=== PATIENT | male | born 1950 | race Caucasian/White ===

== ENCOUNTER 2017-09-04 11:33 | Day surgery (SDC) | payer MEDICARE, OTHER, SELFPAY ==
[2017-08-28 10:26] VITALS: BP 123/70; PULSE 55; RESP 17; TEMP 36.5; O2SAT 96; BMI 23.6
--- NOTE | 2017-08-28 10:45 | SDCEKG_ITS ---
Test Reason : Blood Pressure : / mmHG Vent. Rate : 048 BPM Atrial Rate : 048 BPM P-R Int : 126 ms QRS Dur : 108 ms QT Int : 416 ms P-R-T Axes : 009 073 069 degrees QTc Int : 371 ms Marked sinus bradycardia Abnormal ECG Confirmed by GEOVANNY RIOJAS ([id number]), business editor JESUS ALBERTO MORA ([id number] on 09/01/2017 3:20:33 PM Referred By: ADRIAN JULIAN Confirmed By:GEOVANNY RIOJAS
[2017-08-28 11:20] LABS: Hematocrit 46.4 % (40-54); Mean Corp Hgb Conc 32.3 g/gl (32-36); Mean Corpuscular Hgb 31.4 pg (27.0-32.0); Mean Corpuscular Volume 97.3 fL (80-94); Mean Platelet Vol. 10.6 fl (6.2-12.0); Platelet Count 169 K/mm3 (150-450); RBC Distribution Width CV 13.3 % (11.6-14.6); RBC Distribution Width SD 47.3 fl (35.1-43.9); Red Blood Count 4.77 M/mm3 (4.6-6.2); White Blood Count 5.4 K/mm3 (4.4-11.0)
[2017-08-28 11:21] LABS: Scan Indicated on CBC? Y/N NO
[2017-08-28 11:30] LABS: Anion Gap 5 (5-15); BUN 16 mg/dL (7-18); BUN/Creat Ratio 21.2 RATIO (10-20); Calcium,Total 8.5 mg/dL (8.5-10.1); Chloride 107 mmol/L (98-107); Creatinine, Serum 0.76 mg/dL (0.70-1.30); EST Glomerular Filtration Rate 109 mL/min (>60); Est Glom Filt Rate - Afr Amer 132 mL/min (>60); Estimated Creatinine Clearance 83.34 ml/min; Glucose 86 mg/dL (70-110); Potassium 4.3 mmol/L (3.5-5.1); Sodium Level 141 mmol/L (136-145)
[2017-09-04 12:34] VITALS: BP 139/80; PULSE 49; RESP 18; TEMP 36.8; O2SAT 95; BMI 23.6
[2017-09-04 12:51] LABS: Prothrombin Time Fingerstick 21.8 SEC (11.9-14.4)
[2017-09-04] MEDS: Cefazolin 2 GM in Syringe IV (13:15)
--- NOTE | 2017-09-04 15:19 | PCM.DCVENO ---
Discharge Diet: No Restrictions Discharge Activity: May Not Drive May shower in (days): 2 Weight Bearing Status: Weight bearing as tolerated Lifting Restrictions: 10 pounds Keep extremity elevated above heart level: Right Leg Call your doctor if you observe: Inability to urinate, Shortness of breath, Dizziness, Fainting spells, Chest pain, Prolonged hiccoughing, Increased palpitations (irregular heartbeat), Uncontrolled pain Suture Line Care: Avoid Pulling/Pushing Remove Dressing in (days):: 2 - Then rewrap with Bandar daily from base of toes to upper thigh. Allergies/Adverse Reactions: Allergies No Known Allergies Allergy (Verified 08/28/17 10:21) Medications to take at Discharge Carbidopa/Levodopa 50/200 [Sinemet CR] 1 tablet PO BIDAC 08/28/17 Warfarin Sodium [Coumadin] 10 mg PO DAILY 08/28/17 Primary Care Physician: Joss Heredia MD [Primary Care Provider] - Please Follow Up With: Tip Liz MD - Call [phone] to schedule a followup appointment. When: 10-14 days
--- NOTE | 2017-09-04 15:22 | DCINST_ITS ---
Discharge Diet: No Restrictions Discharge Activity: May Not Drive May shower in (days): 2 Weight Bearing Status: Weight bearing as tolerated Lifting Restrictions: 10 pounds Keep extremity elevated above heart level: Right Leg Call your doctor if you observe: Inability to urinate, Shortness of breath, Dizziness, Fainting spells, Chest pain, Prolonged hiccoughing, Increased palpitations (irregular heartbeat), Uncontrolled pain Suture Line Care: Avoid Pulling/Pushing Remove Dressing in (days):: 2 - Then rewrap with Bandar daily from base of toes to upper thigh. Allergies/Adverse Reactions: Allergies No Known Allergies Allergy (Verified 08/28/17 10:21) Medications to take at Discharge Carbidopa/Levodopa 50/200 [Sinemet CR] 1 tablet PO BIDAC 08/28/17 Warfarin Sodium [Coumadin] 10 mg PO DAILY 08/28/17 Primary Care Physician: Joss Heredia MD [Primary Care Provider] - Please Follow Up With: Tip Liz MD - Call [phone] to schedule a followup appointment. When: 10-14 days
--- NOTE | 2017-09-04 15:22 | PCM.IMDPSTOP ---
Immediate Post-Op Note Date of Procedure: 09/04/17 Primary Surgeon/Physician: Tip Liz community mental health worker: None Pre-Operative Diagnosis: Chronic venous insufficiency, varicose veins with inflammation, post-phlebitic syndrome with inflammation, venous hypertension with inflammation, history of venous ulcerations - right lower extremity Post-Operative Diagnosis: Chronic venous insufficiency, varicose veins with inflammation, post-phlebitic syndrome with inflammation, venous hypertension with inflammation, history of venous ulcerations - right lower extremity Surgery/Procedure Performed:: 1. EVLA of right accessory saphenous vein (GSV - 2 access sites). 2. EVLA of right accessory saphenous vein (SSV). 3. EVLA of incompetent right calf consumer insights intern vein (12 centimeters proximal to the right medial malleolus) Description of Surgical Findings:: As above Estimated Blood Loss: Minimal Specimen's removed: None Drains: None Type of Anesthesia:: General, Tumescent - Admit VTE Documentation VTE Present on Admission: No VTE Mechan Device Prophylaxis: SCD's - Left VTE Pharm Prophylaxis ordered?: Yes
[2017-09-04 15:24] VITALS: BP 139/80; BP 146/99; PULSE 90; RESP 16; TEMP 36.3; O2SAT 96
--- NOTE | 2017-09-04 15:30 | OP.PN_ITS ---
Immediate Post-Op Note Date of Procedure: 09/04/17 Primary Surgeon/Physician: Tip Liz forensic chemist: None Pre-Operative Diagnosis: Chronic venous insufficiency, varicose veins with inflammation, post-phlebitic syndrome with inflammation, venous hypertension with inflammation, history of venous ulcerations - right lower extremity Post-Operative Diagnosis: Chronic venous insufficiency, varicose veins with inflammation, post-phlebitic syndrome with inflammation, venous hypertension with inflammation, history of venous ulcerations - right lower extremity Surgery/Procedure Performed:: 1. EVLA of right accessory saphenous vein (GSV - 2 access sites). 2. EVLA of right accessory saphenous vein (SSV). 3. EVLA of incompetent right calf bander vein (12 centimeters proximal to the right medial malleolus) Description of Surgical Findings:: As above Estimated Blood Loss: Minimal Specimen's removed: None Drains: None Type of Anesthesia:: General, Tumescent - Admit VTE Documentation VTE Present on Admission: No VTE Mechan Device Prophylaxis: SCD's - Left VTE Pharm Prophylaxis ordered?: Yes
[2017-09-04 15:45] VITALS: BP 139/80; BP 151/86; PULSE 75; RESP 16; O2SAT 98
[2017-09-04 15:56] VITALS: BP 139/80; BP 151/86; PULSE 69; RESP 18; TEMP 36.4; O2SAT 92
[2017-09-04 16:24] VITALS: BP 139/80
--- NOTE | 2017-09-07 21:52 | PCM.OP.BLANK ---
Problem List (1) Postphlebitic syndrome with inflammation Status: Chronic (2) History of ulcer of lower extremity Status: Chronic (3) Chronic venous insufficiency Status: Chronic (4) Varicose veins with inflammation Status: Chronic (5) Venous hypertension, chronic, with inflammation Status: Chronic Qualifiers: Laterality: right Qualified Code(s): I87.321 - Chronic venous hypertension (idiopathic) with inflammation of right lower extremity Operative Report Date of Procedure: 09/04/17 Preoperative diagnosis: Chronic venous insufficiency, varicose veins with inflammation, postphlebitic syndrome with inflammation, venous hypertension with inflammation, history of venous ulcerations - right lower extremity Postoperative diagnosis: Chronic venous insufficiency, varicose veins with inflammation, postphlebitic syndrome with inflammation, venous hypertension with inflammation, history of venous ulcerations - right lower extremity Operative procedure: 1. Endovenous laser ablation of the right accessory saphenous vein (great saphenous vein -2 access sites); 2. Endovenous laser ablation of the right accessory saphenous vein (small saphenous vein); 3. Endovenous laser ablation of an incompetent right calf computer repair technician vein (12 cm proximal to the right medial malleolus) Surgeon: Tip Liz MD Anesthesia: 1. General anesthesia; 2.Tumescent anesthesia Estimated blood loss: Minimal This is a 67-year-old male who presented with a long-standing history of chronic venous insufficiency, varicose veins with inflammation, postphlebitic syndrome with inflammation, venous hypertension with inflammation, and venous ulcerations in his right lower extremity. He has previously undergone endothermal ablation of superficial veins in the right lower extremity. The preoperative venous duplex examination revealed valvular incompetence involving the accessory saphenous vein of the right great saphenous vein, accessory saphenous vein of the small saphenous vein, and a very large, clinically significant incompetent right calf computer repair technician vein located approximately 12 cm proximal to the right medial malleolus. The implications of this diagnosis were discussed with the patient in detail. The options of management were fully explained. Conservative treatment measures were implemented for a prolonged period of time, including leg elevation, avoidance of idle standing and sitting, graduated compression stockings, weight control measures, active lifestyle, [id number] analgesics, etc. In fact, the patient was carefully and serially monitored in treatment for a venous ulceration near the right medial malleolus, treatment of which was for many months. Despite conservative treatment measures, and in consideration of the propensity for the patient to have recurrent venous ulcerations, he was felt to be a candidate for endothermal ablation of the incompetent superficial and computer repair technician veins in the right lower extremity. Indications and risks of the procedure were discussed with the patient in detail. The appropriate preprocedure consent process was undertaken. The patient underwent ultrasound marking of the incompetent superficial accessory saphenous veins and the incompetent right calf computer repair technician vein preoperatively. He was then brought to the operating suite, placed supine upon the operating room table, where general anesthesia was administered by the anesthesia staff. The patient's right lower extremity and right groin were prepped and draped in the appropriate sterile manner. The patient was placed in reverse Trendelenburg position. Ultrasonography was used to image the right accessory saphenous vein in the distal calf. It became apparent that this accessory saphenous vein may well actually represent the great saphenous vein which had been previously ablated many years ago, and perhaps had recannulated. The micropuncture technique was used to access this vein percutaneously in the distal calf. In this manner, 0.018 inch guidewire was advanced intraluminally, and was visualized by ultrasonography. A micropuncture sheath was advanced over the guidewire. The 0.018 inch guidewire was exchanged for a 0.035 inch guidewire, which was then advanced proximally. However, at approximately the level of the knee, the guidewire could not be advanced any further, despite multiple attempts. The long 4 Kosovan sheath was then advanced over the guidewire and into position intraluminally within the distal portion of the vein, below the knee. Attempts were then made to access the incompetent accessory saphenous vein, or perhaps the right great saphenous vein, just above the knee. Despite multiple attempts, this could not be achieved. Therefore, the decision was made to obtain access in a retrograde fashion. Thus, using ultrasound imaging and the micropuncture technique, access to the incompetent accessory saphenous vein, or perhaps the great saphenous vein, was achieved just distal to the right groin, in retrograde fashion. A micropuncture sheath was left in place, capped, for subsequent access purposes. The accessed vein had been thought to represent an accessory saphenous vein preoperatively, but intraoperatively its anatomical position appeared to be consistent with that of the great saphenous vein, likely recannulated. Attention was then directed to the incompetent accessory saphenous vein in the posterior right calf, thought to be related to the previously ablated small saphenous vein. Using ultrasound imaging and the micropuncture technique, a micropuncture sheath was introduced intraluminally, and was left in place, capped, for subsequent access purposes. Thus, the superficial veins accessed were noted to be incompetent, contributing to the venous hypertension in the patient's right lower extremity, responsible for his recurrent venous ulcerations. Attention was then directed to the incompetent right calf computer repair technician vein, located 12 cm proximal to the right medial malleolus. The incompetent computer repair technician vein was imaged using ultrasound imaging. Using the micropuncture technique, a micropuncture needle was introduced into the incompetent computer repair technician vein, allowing for the introduction of a 0.018 inch guidewire. Over the guidewire, a 5 Kosovan peel-away sheath was advanced, and positioned within the lumen of the incompetent computer repair technician vein. Perivenous tumescent anesthesia was then injected about the incompetent computer repair technician vein. The patient was placed in Trendelenburg position. The inner dilator of the 5 Kosovan sheath was removed, and the laser fiber was introduced into the lumen of the incompetent computer repair technician vein. The 5 Kosovan peel-away sheath was withdrawn, leaving the laser fiber in place, at about the level of the fascia. The tip of the laser fiber was seen to be well distanced from the deep venous system. The laser fiber was activated, and laser energy was applied to the lumen of the incompetent computer repair technician vein, while slowly withdrawing. At the completion of the ablation, the laser fiber was removed, and manual pressure was briefly applied to the percutaneous access site to achieve hemostasis. Attention was then directed to the long 4 Kosovan sheath which had been previously placed intraluminally within the distal great saphenous vein/accessory saphenous vein. Perivenous tumescent anesthesia was injected from the 4 Kosovan sheath exit site up to the tip of the sheath near knee level. This was performed segmentally using ultrasound imaging. The [employer] laser fiber was then introduced into the 4 Kosovan sheath and coupled appropriately. Ultrasonography was used to confirm that the tip of the laser fiber was positioned within the vein at knee level, well away from the deep venous system. The patient was placed in Trendelenburg position and the laser fiber was activated. The AngioD[employer] laser was slowly withdrawn at a constant rate throughout the length of the incompetent vein, thereby ablating the vein segmentally. The energy applied was approximately 60-80 J/cm. Following the laser ablation, the laser fiber and sheath were removed, and manual pressure was briefly applied to the percutaneous access site to achieve hemostasis. Attention was then directed to the micropuncture sheath which had been placed in retrograde fashion in the upper portion of the incompetent great saphenous vein/accessory saphenous vein. A 0.035 inch guidewire was introduced intraluminally and its tip was advanced down to knee level. The long 4 Kosovan sheath was advanced over the guidewire and into position intraluminally within the proximal, above-knee vein. Perivenous tumescent anesthesia was injected from the 4 Kosovan sheath exit site down to the tip of the sheath near knee level. This was performed segmentally using ultrasound imaging. The [employer]io[employer] laser fiber was then introduced into the 4 Kosovan sheath and coupled appropriately. Ultrasonography was used to confirm that the tip of the laser fiber was in the desired position, at the level of the knee. The patient was then placed in Trendelenburg position and the laser fiber was activated. The Angio[employer] laser was slowly withdrawn at a constant rate throughout the length of the vein, thereby ablating the vein segmentally. Energy applied was approximately 60-80 J/cm. Following the laser ablation, the laser fiber and sheath were removed, and manual pressure was briefly applied to the percutaneous access site to achieve hemostasis. Attention was then directed to the incompetent accessory saphenous vein in the posterior right calf. The 0.035 inch guidewire was introduced intraluminally and advanced into the proximal portion of the incompetent accessory saphenous vein. The long 4 Kosovan sheath was advanced over the guidewire and into position intraluminally. Perivenous tumescent anesthesia was injected from the 4 Kosovan sheath exit site up to the tip of the sheath. The [employer] laser fiber was then introduced into the 4 Kosovan sheath and coupled appropriately. Ultrasound imaging was used to confirm that the tip of the laser fiber was positioned in the desired location, and well away from any deep venous structures. The patient was placed in Trendelenburg position and the laser fiber was activated. The Angio[employer] laser was slowly withdrawn at a constant rate throughout the length of the vein, thereby ablating the vein segmentally. The energy applied was approximately 60-80 J/cm. Following the laser ablation, the laser fiber and sheath were removed, and manual pressure was briefly applied to the percutaneous access site to achieve hemostasis. After assuring satisfactory hemostasis, the access sites were approximated using Cavilon and Steri-Strips. Dry sterile gauze dressings were applied over each of the access sites, and the leg was wrapped from the base of the toes to the upper thigh with Kerlix, followed by Bandar wrap. The blood loss for the procedure was minimal. The sponge, needle, and instrument counts at the end of the procedure were correct. The patient tolerated the procedure well and was transported from the operating room to the postanesthesia care unit in stable condition. The amount of tumescent anesthesia utilized, number of joules applied, and treatment times were recorded separately.
--- NOTE | 2017-09-07 22:27 | OP.PCM_ITS ---
Problem List (1) Postphlebitic syndrome with inflammation Status: Chronic (2) History of ulcer of lower extremity Status: Chronic (3) Chronic venous insufficiency Status: Chronic (4) Varicose veins with inflammation Status: Chronic (5) Venous hypertension, chronic, with inflammation Status: Chronic Qualifiers: Laterality: right Qualified Code(s): I87.321 - Chronic venous hypertension (idiopathic) with inflammation of right lower extremity Operative Report Date of Procedure: 09/04/17 Preoperative diagnosis: Chronic venous insufficiency, varicose veins with inflammation, postphlebitic syndrome with inflammation, venous hypertension with inflammation, history of venous ulcerations - right lower extremity Postoperative diagnosis: Chronic venous insufficiency, varicose veins with inflammation, postphlebitic syndrome with inflammation, venous hypertension with inflammation, history of venous ulcerations - right lower extremity Operative procedure: 1. Endovenous laser ablation of the right accessory saphenous vein (great saphenous vein -2 access sites); 2. Endovenous laser ablation of the right accessory saphenous vein (small saphenous vein); 3. Endovenous laser ablation of an incompetent right calf agricultural equipment mechanic vein (12 cm proximal to the right medial malleolus) Surgeon: Tip Liz MD Anesthesia: 1. General anesthesia; 2.Tumescent anesthesia Estimated blood loss: Minimal This is a 67-year-old male who presented with a long-standing history of chronic venous insufficiency, varicose veins with inflammation, postphlebitic syndrome with inflammation, venous hypertension with inflammation, and venous ulcerations in his right lower extremity. He has previously undergone endothermal ablation of superficial veins in the right lower extremity. The preoperative venous duplex examination revealed valvular incompetence involving the accessory saphenous vein of the right great saphenous vein, accessory saphenous vein of the small saphenous vein, and a very large, clinically significant incompetent right calf agricultural equipment mechanic vein located approximately 12 cm proximal to the right medial malleolus. The implications of this diagnosis were discussed with the patient in detail. The options of management were fully explained. Conservative treatment measures were implemented for a prolonged period of time, including leg elevation, avoidance of idle standing and sitting, graduated compression stockings, weight control measures, active lifestyle, [id number] analgesics, etc. In fact, the patient was carefully and serially monitored in treatment for a venous ulceration near the right medial malleolus, treatment of which was for many months. Despite conservative treatment measures, and in consideration of the propensity for the patient to have recurrent venous ulcerations, he was felt to be a candidate for endothermal ablation of the incompetent superficial and agricultural equipment mechanic veins in the right lower extremity. Indications and risks of the procedure were discussed with the patient in detail. The appropriate preprocedure consent process was undertaken. The patient underwent ultrasound marking of the incompetent superficial accessory saphenous veins and the incompetent right calf agricultural equipment mechanic vein preoperatively. He was then brought to the operating suite, placed supine upon the operating room table, where general anesthesia was administered by the anesthesia staff. The patient's right lower extremity and right groin were prepped and draped in the appropriate sterile manner. The patient was placed in reverse Trendelenburg position. Ultrasonography was used to image the right accessory saphenous vein in the distal calf. It became apparent that this accessory saphenous vein may well actually represent the great saphenous vein which had been previously ablated many years ago, and perhaps had recannulated. The micropuncture technique was used to access this vein percutaneously in the distal calf. In this manner, 0.018 inch guidewire was advanced intraluminally, and was visualized by ultrasonography. A micropuncture sheath was advanced over the guidewire. The 0.018 inch guidewire was exchanged for a 0.035 inch guidewire, which was then advanced proximally. However, at approximately the level of the knee, the guidewire could not be advanced any further, despite multiple attempts. The long 4 [place] sheath was then advanced over the guidewire and into position intraluminally within the distal portion of the vein, below the knee. Attempts were then made to access the incompetent accessory saphenous vein, or perhaps the right great saphenous vein, just above the knee. Despite multiple attempts, this could not be achieved. Therefore, the decision was made to obtain access in a retrograde fashion. Thus, using ultrasound imaging and the micropuncture technique, access to the incompetent accessory saphenous vein, or perhaps the great saphenous vein, was achieved just distal to the right groin, in retrograde fashion. A micropuncture sheath was left in place, capped, for subsequent access purposes. The accessed vein had been thought to represent an accessory saphenous vein preoperatively, but intraoperatively its anatomical position appeared to be consistent with that of the great saphenous vein, likely recannulated. Attention was then directed to the incompetent accessory saphenous vein in the posterior right calf, thought to be related to the previously ablated small saphenous vein. Using ultrasound imaging and the micropuncture technique, a micropuncture sheath was introduced intraluminally, and was left in place, capped, for subsequent access purposes. Thus, the superficial veins accessed were noted to be incompetent, contributing to the venous hypertension in the patient's right lower extremity, responsible for his recurrent venous ulcerations. Attention was then directed to the incompetent right calf agricultural equipment mechanic vein, located 12 cm proximal to the right medial malleolus. The incompetent agricultural equipment mechanic vein was imaged using ultrasound imaging. Using the micropuncture technique, a micropuncture needle was introduced into the incompetent agricultural equipment mechanic vein, allowing for the introduction of a 0.018 inch guidewire. Over the guidewire, a 5 [place] peel-away sheath was advanced, and positioned within the lumen of the incompetent agricultural equipment mechanic vein. Perivenous tumescent anesthesia was then injected about the incompetent agricultural equipment mechanic vein. The patient was placed in Trendelenburg position. The inner dilator of the 5 [place] sheath was removed, and the laser fiber was introduced into the lumen of the incompetent agricultural equipment mechanic vein. The 5 [place] peel-away sheath was withdrawn, leaving the laser fiber in place, at about the level of the fascia. The tip of the laser fiber was seen to be well distanced from the deep venous system. The laser fiber was activated, and laser energy was applied to the lumen of the incompetent agricultural equipment mechanic vein, while slowly withdrawing. At the completion of the ablation, the laser fiber was removed, and manual pressure was briefly applied to the percutaneous access site to achieve hemostasis. Attention was then directed to the long 4 [place] sheath which had been previously placed intraluminally within the distal great saphenous vein/ accessory saphenous vein. Perivenous tumescent anesthesia was injected from the 4 [place] sheath exit site up to the tip of the sheath near knee level. This was performed segmentally using ultrasound imaging. The AngioD[employer] laser fiber was then introduced into the 4 [place] sheath and coupled appropriately. Ultrasonography was used to confirm that the tip of the laser fiber was positioned within the vein at knee level, well away from the deep venous system. The patient was placed in Trendelenburg position and the laser fiber was activated. The AngioD[employer] laser was slowly withdrawn at a constant rate throughout the length of the incompetent vein, thereby ablating the vein segmentally. The energy applied was approximately 60-80 J/cm. Following the laser ablation, the laser fiber and sheath were removed, and manual pressure was briefly applied to the percutaneous access site to achieve hemostasis. Attention was then directed to the micropuncture sheath which had been placed in retrograde fashion in the upper portion of the incompetent great saphenous vein/accessory saphenous vein. A 0.035 inch guidewire was introduced intraluminally and its tip was advanced down to knee level. The long 4 [place] sheath was advanced over the guidewire and into position intraluminally within the proximal, above-knee vein. Perivenous tumescent anesthesia was injected from the 4 [place] sheath exit site down to the tip of the sheath near knee level. This was performed segmentally using ultrasound imaging. The AngioD[employer] laser fiber was then introduced into the 4 [place] sheath and coupled appropriately. Ultrasonography was used to confirm that the tip of the laser fiber was in the desired position, at the level of the knee. The patient was then placed in Trendelenburg position and the laser fiber was activated. The AngioD[employer] laser was slowly withdrawn at a constant rate throughout the length of the vein, thereby ablating the vein segmentally. Energy applied was approximately 60-80 J/cm. Following the laser ablation, the laser fiber and sheath were removed, and manual pressure was briefly applied to the percutaneous access site to achieve hemostasis. Attention was then directed to the incompetent accessory saphenous vein in the posterior right calf. The 0.035 inch guidewire was introduced intraluminally and advanced into the proximal portion of the incompetent accessory saphenous vein. The long 4 [place] sheath was advanced over the guidewire and into position intraluminally. Perivenous tumescent anesthesia was injected from the 4 [place] sheath exit site up to the tip of the sheath. The AngioD[employer] laser fiber was then introduced into the 4 [place] sheath and coupled appropriately. Ultrasound imaging was used to confirm that the tip of the laser fiber was positioned in the desired location, and well away from any deep venous structures. The patient was placed in Trendelenburg position and the laser fiber was activated. The AngioD[employer] laser was slowly withdrawn at a constant rate throughout the length of the vein, thereby ablating the vein segmentally. The energy applied was approximately 60-80 J/cm. Following the laser ablation, the laser fiber and sheath were removed, and manual pressure was briefly applied to the percutaneous access site to achieve hemostasis. After assuring satisfactory hemostasis, the access sites were approximated using Cavilon and Steri-Strips. Dry sterile gauze dressings were applied over each of the access sites, and the leg was wrapped from the base of the toes to the upper thigh with Kerlix, followed by Bandar wrap. The blood loss for the procedure was minimal. The sponge, needle, and instrument counts at the end of the procedure were correct. The patient tolerated the procedure well and was transported from the operating room to the postanesthesia care unit in stable condition. The amount of tumescent anesthesia utilized, number of joules applied, and treatment times were recorded separately.
== END 2017-09-04 16:27 | disposition home or self-care (01) ==
LOC: SDC 12:03 → AC 12:08
PROVIDERS: Family Provider Family Medicine; PCP Family Medicine; Visit Provider Surgery
PROC: (CPT 36478; principal; 2017-09-04 12:35)
DX: I87.329 Chronic venous hypertension (idiopathic) with inflammation of unspecified lower extremity (principal); I87.331 Chronic venous hypertension (idiopathic) with ulcer and inflammation of right lower extremity; L97.912 Non-pressure chronic ulcer of unspecified part of right lower leg with fat layer exposed; G20 Parkinson's disease; Z79.01 Long term (current) use of anticoagulants; Z86.73 Personal history of transient ischemic attack (TIA), and cerebral infarction without residual deficits
CPT/HCPCS: 36478; 36479; 36416; 80048; 85027; 85610; 93971; 99211; J7040; J7120; C1894; G0463; J2405

== ENCOUNTER → 2017-12-01 10:02 | Outpatient (CLI) | payer MEDICARE, OTHER, SELFPAY ==
--- NOTE | 2017-12-01 10:16 | VDLE_ITS ---
Reason For Study: CVI s/P EVLA RIGHT CFV is compressible, spontaneous, phasic, competent and demonstrates normal augmentation. FV, POP V and T/P trunk are partially compressible with bright intraluminal echoes and demonstrate INCOMPETENCY with augmentation. PTV is compressible PER V is compressible GSV is occluded s/p EVLA SSV is occluded s/p EVLA Acessory SSV is occluded s/p EVLA ASV below the knee demonstrates color flow and is INCOMPETENT with reflux greater than .5 sec and diameter of .42 x .62 cm INCOMPETENT documentation nurse with reflux greater than .5 sec 12 cm prox to medial malleolus. Procedure Exam performed in department. Interpretation Summary Chronic venous changes are noted in the right femoral vein, popliteal vein, and tibio-peroneal trunk, which are partially compressible and demonstrate bright intraluminal echogenicity and incompetence. The right common femoral vein, posterior tibial vein, and peroneal vein are patent and compressible. The right common femoral vein is competent. The right great saphenous vein, small saphenous vein, and accessory small saphenous vein are occluded, consistent with a prior endothermal ablation procedure. The right accessory saphenous vein below the knee is incompetent. An incompetent documentation nurse vein is identified in the right calf, located 12 centimeters proximal to the right medial malleolus. Ordering Physician: Tip Liz Referring Physician: Tip Liz Performed By: Kaitlyn Mercado RVT
== END ==
PROVIDERS: Family Provider Family Medicine; PCP Family Medicine; Visit Provider Surgery
DX: I82.4Z1 Acute embolism and thrombosis of unspecified deep veins of right distal lower extremity (principal); I87.2 Venous insufficiency (chronic) (peripheral); I83.10 Varicose veins of unspecified lower extremity with inflammation; I87.329 Chronic venous hypertension (idiopathic) with inflammation of unspecified lower extremity; I87.029 Postthrombotic syndrome with inflammation of unspecified lower extremity
CPT/HCPCS: 93971

== ENCOUNTER → 2018-01-16 10:37 | Outpatient (CLI) | payer MEDICARE, OTHER, SELFPAY ==
[2018-01-16 12:50] LABS: BUN 22 mg/dL (7-18); Creatinine, Serum 0.85 mg/dL (0.70-1.30); EST Glomerular Filtration Rate 95 mL/min (>60); Est Glom Filt Rate - Afr Amer 115 mL/min (>60)
== END ==
PROVIDERS: Family Provider Family Medicine; PCP Family Medicine; Visit Provider Ophthalmology
DX: Z86.73 Personal history of transient ischemic attack (TIA), and cerebral infarction without residual deficits (principal)
CPT/HCPCS: 36415; 82565; 84520

== ENCOUNTER → 2018-01-22 07:22 | Outpatient (CLI) | payer MEDICARE, OTHER, SELFPAY ==
--- NOTE | 2018-01-22 07:45 | MRI_ITS ---
STUDY: MRI BRAIN WITH AND WITHOUT CONTRAST REASON FOR EXAM: Male, 67 years old. Bilateral vision loss history of CVA TECHNIQUE: Standardized multiplanar fat and water weighted pulse sequences were obtained. 9 ml of Gadavist contrast material was administered intravenously for the contrast portion of the examination. COMPARISON: None. FINDINGS: Normal size of the ventricles and extra-axial spaces for the patient's age. Minor periventricular white matter ischemic change without evidence for acute infarct.. Tiny perivascular space within the left alan. Normal bilateral basal ganglia. Normal thalami. There is no extra-axial fluid accumulation. Normal flow voids within the major intracranial circulation suggesting patency by spin echo criteria. Normal venous enhancement. There is no enhancing intra-axial or extra-axial abnormality. Normal sella turcica, pituitary gland, infundibular stalk, optic chiasm and hypothalamus. Normal tectal plate and pineal gland. Normal midbrain, alan and medulla. Normal cerebellum. Normal basal cisterns. Normal bilateral temporal bones. Normal bilateral internal auditory canals. No demonstrated orbital abnormality, within the constraints of a routine brain study. Normal visualized paranasal sinuses. Normal calvarium and skull base. Normal visualized soft tissue structures. Normal visualized upper cervical spine. IMPRESSION: Minor periventricular white matter ischemic changes without evidence for acute infarct No other significant abnormality Electronically Signed: Christo Johnson MD at 16:21 EDT , Service support , STUDY: MRI ORBITS WITH AND WITHOUT CONTRAST REASON FOR EXAM: Male, 67 years old. Bilateral visual loss for one year TECHNIQUE: Standardized fat and water weighted pulse sequences were obtained in all 3 orthogonal planes, pre-and post contrast administration. 9 ml of Gadavist contrast material was administered intravenously for the contrast portion of the examination. COMPARISON: None. FINDINGS: Normal bilateral globes. On the T2-weighted imaging sequences there appear to be foci of increased signal intensity within the optic nerves consistent with nonspecific optic neuritis possibly due to ischemia Normal bilateral intraconal and extraconal spaces. Normal bilateral extraocular muscles. Normal optic chiasm and post-chiasmatic tracts. Normal sella turcica, pituitary gland, infundibular stalk, and hypothalamus. Normal bilateral cavernous sinuses. Normal tectal plate and pineal gland. Normal flow voids within the major intracranial circulation suggesting patency by spin echo criteria. Normal size of the ventricles and extra-axial spaces for the patient's age. Minor periventricular white matter ischemic changes. Normal bilateral basal ganglia. Normal thalami. There is no extra-axial fluid accumulation. Normal midbrain, alan and medulla. Normal cerebellum. Normal basal cisterns. MRI/Brain W/WO Contrast IMPRESSION: Nonspecific bilateral optic neuritis. No enhancing optic nerve or other orbital masses Electronically Signed: Christo Johnson MD at 16:27 EDT , Service support ,
== END ==
PROVIDERS: Family Provider Family Medicine; PCP Family Medicine; Visit Provider Ophthalmology
DX: Z86.73 Personal history of transient ischemic attack (TIA), and cerebral infarction without residual deficits (principal)
CPT/HCPCS: 70553; A9585

== ENCOUNTER 2018-04-21 10:00 | Outpatient (RCR) | payer MEDICARE, OTHER, SELFPAY ==
[2018-03-24 12:15] VITALS: BP 136/72; PULSE 72; RESP 18; TEMP 37.1; BMI 23.7
--- NOTE | 2018-03-24 13:36 | HP.PCM_ITS ---
(1) Swelling of right lower extremity Status: Chronic Current Visit: Yes Code(s): M79.89 - Other specified soft tissue disorders (2) Edema leg Status: Chronic Current Visit: Yes Code(s): R60.0 - Localized edema (3) Ulcer of great toe Status: Acute Current Visit: Yes Qualifiers: Laterality: right Non-pressure ulcer stage: with fat layer exposed Qualified Code(s): L97.512 - Non-pressure chronic ulcer of other part of right foot with fat layer exposed Code(s): L97.509 - Non-pressure chronic ulcer of other part of unspecified foot with unspecified severity (4) Parkinsons disease Status: Chronic Current Visit: No Code(s): G20 - Parkinson's disease (5) Venous hypertension, chronic, with inflammation Status: Chronic Current Visit: Yes Qualifiers: Laterality: bilateral Qualified Code(s): I87.323 - Chronic venous hypertension (idiopathic) with inflammation of bilateral lower extremity Code(s): I87.329 - Chronic venous hypertension (idiopathic) with inflammation of unspecified lower extremity (6) Varicose veins with inflammation Status: Chronic Current Visit: Yes Code(s): I83.10 - Varicose veins of unspecified lower extremity with inflammation (7) Chronic venous insufficiency Status: Chronic Current Visit: Yes (8) History of ulcer of lower extremity Status: Chronic Current Visit: No Code(s): Z87.2 - Personal history of diseases of the skin and subcutaneous tissue (9) Postphlebitic syndrome with inflammation Status: Chronic Current Visit: Yes Code(s): I87.029 - Postthrombotic syndrome with inflammation of unspecified lower extremity History of Present Illness Date of Service: 03/24/18 Chief Complaint: Ulceration of the right great toe History of Wound: This is a 68-year-old male who presents with a one-month history of ulceration on the dorsum of his right great toe. The patient is not sure as to the etiology. He is suspicious, however, that this may be related to pressure from an-ill fitting shoe. The patient has a long-standing history of chronic venous disease. The patient suffers from chronic venous insufficiency, varicose veins with inflammation and ulceration, venous hypertension with inflammation, postphlebitic syndrome with inflammation, etc. He has been treated for a venous ulceration on the right lateral malleolus, which has healed. He has suffered from venous disease for many years. In April 2013 he underwent endovenous laser ablation of the right great saphenous vein, the right small saphenous vein, and the right accessory saphenous vein. A subsequent venous duplex examination two months later revealed successful ablation of the right great saphenous vein, small saphenous vein, and accessory saphenous vein. The patient subsequently presented with ulcerations which occurred on the right medial malleolus and on the dorsum of the right second toe. The ulceration near the right medial malleolus appeared to be related to the patient's chronic venous disease. The ulceration on the right second toe appeared to be related to pressure from poorly-fitted work boots. The ulceration on the right second toe appeared pressure related, stage II, and likely due to swelling of the foot while wearing work boots. The patient's wound subsequently healed, the patient was discharged for as needed follow-up. Patient has been wearing graduated compression stockings of 20-30 mmHg on a daily basis. 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 The patient had also been instructed to avoid idle standing and sitting. However, it is known that the patient is relatively noncompliant with recommended treatment measures. 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 A noninvasive lower extremity arterial study performed in 2012 was normal. 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 Allergies/Adverse Reactions: Allergies No Known Allergies Allergy (Verified 08/28/17 10:21) Home Medications: Ambulatory Orders Medication Instructions Recorded Carbidopa/Levodopa 50/200 [Sinemet 1 tablet PO BIDAC 08/28/17 CR] Warfarin Sodium [Coumadin] 9 mg PO DAILY 08/28/17 - Family History Maternal No pertinent history, - - Patient's father at the age of 92 of old age. Patient's mother at the age of 76 with a history of myocardial infarction. Lives: Spouse/ Significant Other Smoking Status: Never smoker Tobacco Use: Non-smoker Alcohol: None Drugs: None Review of Systems Constitutional: Denies: Chills, Fever, Weight Change Eyes: Denies: Pain, Vision Change HEENT: Denies: Difficulty Hearing, Difficulty Swallowing, Sinus Congestion Cardiovascular: Denies: Chest Pain, Palpitations Respiratory: Denies: Cough, Shortness of Breath Gastrointestinal: Denies: Diarrhea, Nausea, Vomiting Genitourinary: Denies: Dysuria, Hematuria Endocrine: Denies: Heat/ Cold Intolerance, Polydipsia, Polyuria Hematologic/ Lymphatic: Denies: Easy Bruising, Easy Bleeding - Physical Exam Vital Signs Temp Pulse Resp BP 98.7 F 72 18 136/72 H 03/24/18 12:15 03/24/18 12:15 03/24/18 12:15 03/24/18 12:15 General: Alert, Oriented x3, Cooperative, No apparent distress, Well developed, Well nourished, - - The patient is of normal body habitus. HEENT: Atraumatic, PERRLA, EOMI, Normocephalic Oral: Moist Mucosa Neck: No JVD, Negative Carotid Bruits, Negative Hepatojugular Reflux, No Nodes, No Nuchal Rigidity, Trachea Midline Lungs: Clear to auscultation, Normal air movement, No rhonchi, No wheeze Cardiovascular: Regular rate, Regular Rhythm, Normal S1, Normal S2, No murmurs Abdomen: Soft, Non Tender, Non-Distended Extremities: No clubbing, No cyanosis, No Calf Tenderness, - - Scattered varicosities are noted in the lower extremities bilaterally. Mild swelling and edema is noted bilaterally. Mild hyperpigmentation and lipodermatosclerosis is noted in the gaiter areas bilaterally. The patient was noted to have ulceration on the dorsum of the right great toe. Dimensions are documented elsewhere. There is no sign of infection or cellulitis. The base of the ulceration demonstrates a moderate amount of bioburden. Skin: No rashes Wound Measurements and Assessment WC - Nurse 1 - General Ulcer Measurement Start: 03/24/18 12:14 Freq: Status: Active Protocol: Activity Type Activity Date Activity User E-Sign Co-Sign Detail Recorded Client Recorded Date Recorded By Document 03/24/18 12:15 NITESH [id number] 03/24/18 12:29 NITESH 03/24/18 12:15 Wound Center Nurse 1 [Ulcer Assessment] 12- right hallux crease -Combined with other wound No -Current Size (cm) - Length 0.2 -Current Size (cm) - Width 0.4 -Current Size (cm) - Depth 0.2 -Total Square Cm 0.08 -Photo Taken Yes -Epithelialization Small 1-33% -Tunneling No -Undermining/Tunneling No -Circular Undermining No -Classification - Thickness Full Thickness without Exposed Support Structure -Exudate Amt None Present (0 %) -Wound Margin Flat & Intact -Granulation Amt Small (1-33%) -Granulation Quality Pale -Slough/Fibrin Yes -Necrosis Amt Medium (34-66%) -Necrotic Tissue Type Adherent Slough -Structure Exposed N/A -Texture (Tara-wound Skin Appearance) Assessed -Moisture (Tara-wound Skin Appearance Assessed ) Dry/Scaly -Color (Tara-wound Skin Appearance) Assessed -Temperature (Tara-wound Skin No Abnormality Appearance) (Pt Warm) -Tenderness on Palpation (Tara-wound No Skin Appearance) -Ulcer Cleansing Rinsed/ Irrigated with Saline -Foul Odor after Cleansing No -Anesthetic Used 4% Lidocaine Solution 11-right distal hallux -Combined with other wound No -Current Size (cm) - Length 0.5 -Current Size (cm) - Width 1.2 -Current Size (cm) - Depth 0.1 -Total Square Cm 0.60 -Photo Taken Yes -Epithelialization Medium 34-66% -Tunneling No -Undermining/Tunneling No -Circular Undermining No -Classification - Thickness Full Thickness without Exposed Support Structure -Exudate Amt Small (1-33%) -Exudate Type Serosanguineous -Wound Margin Flat & Intact -Granulation Amt Small (1-33%) -Granulation Quality [place] -Slough/Fibrin Yes -Necrosis Amt Large (67-100%) -Necrotic Tissue Type Adherent Slough -Structure Exposed N/A -Texture (Tara-wound Skin Appearance) Assessed Localized Edema -Moisture (Tara-wound Skin Appearance Assessed ) Dry/Scaly -Color (Tara-wound Skin Appearance) Assessed -Temperature (Tara-wound Skin No Abnormality Appearance) (Pt Warm) -Tenderness on Palpation (Tara-wound No Skin Appearance) -Ulcer Cleansing Rinsed/ Irrigated with Saline -Foul Odor after Cleansing No -Anesthetic Used 4% Lidocaine Solution [Edema Assessment] -Lower Limb Edema Present Yes -Right Calf (cm) 39.6 -Right Ankle (cm) 23.3 -Left Calf (cm) 37.8 -Left Ankle (cm) 21.5 Neurological: Cranial nerves II-XII grossly intact, Neuro grossly intact Psych/Mental Status: Normal Affect, Appropriate, Alert and oriented to time, place, person, mood and affect Debridement Note Laterality: Right - Great toe, dorsum Type of Debridement: Excisional debridement Anesthesia Used: 4% Lidocaine Solution Depth: Down to and including healthy tissue, in the subcutaneous layer Percentage of wound debrided: 100 Instrument Used: 5mm curette Severity: Fat Layer Exposed Amount of bleeding with debridement: Mild Bleeding Controlled with: Compression and gauze Patient tolerated procedure well Assessment/Plan Active Problems Swelling of right lower extremity (Chronic) Edema leg (Chronic) Ulcer of great toe (Acute) Venous hypertension, chronic, 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 At his current presentation, he presents with an ulceration on the dorsum of the right great toe. This appears to be pressure related, and likely due to ill fitted footwear. It is suspected that the patient's shoes may be properly fitted, but with swelling which occurs at the end of each day, the sugars may become too tight, causing pressure phenomenon resulting in an ulceration. With respect to the patient's venous disease, the patient appears to be doing well. He has been wearing his graduated compression stockings on a daily basis. He makes an effort to elevate his lower extremities frequently. He sleeps on a flat surface at night. 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 Plan: The patient is to continue measures which have been previously implemented related to his venous disease. These include leg elevation, avoidance of idle standing and sitting, active lifestyle, the use of graduated compression stockings, weight control measures, etc. Offloading measures have been recommended relative to the current ulceration on the dorsum of the right great toe. The patient has been advised to obtain shoes of a larger size. A surgical boot has been provided. We are to obtain a noninvasive lower extremity arterial study to assess the arterial status in the right lower extremity, though a prior study from 5 years ago was normal. The patient will return in 1 week for reassessment. Mentioned, it is suspected that the patient' s right great toe ulcer is likely due to swelling in the patient's foot which had occurred during daytime hours, while the patient was wearing a work boot. This resulted in a pressure phenomenon, creating an ulceration on the right great toe. The patient has been urged to obtain more appropriately fitted footwear. The patient is to elevate his lower extremities as much as possible. He is to avoid prolonged, idle sitting. He is to continue compression with graduated compression stockings of 20-30 mmHg, worn daily. The patient is not a smoker. Influenza vaccine was not administered. Patient weighs about 170 pounds. He stands 6 feet 0 inches tall. His BMI is 23.1, which is normal.
[2018-04-07 10:05] VITALS: BP 136/86; PULSE 72; RESP 18; TEMP 36.3; BMI 23.7
--- NOTE | 2018-04-07 10:49 | HP.PCM_ITS ---
(1) Swelling of right lower extremity Status: Chronic Current Visit: Yes Code(s): M79.89 - Other specified soft tissue disorders (2) Edema leg Status: Chronic Current Visit: Yes Code(s): R60.0 - Localized edema (3) Ulcer of great toe Status: Acute Current Visit: Yes Qualifiers: Laterality: right Non-pressure ulcer stage: with fat layer exposed Qualified Code(s): L97.512 - Non-pressure chronic ulcer of other part of right foot with fat layer exposed Code(s): L97.509 - Non-pressure chronic ulcer of other part of unspecified foot with unspecified severity (4) Parkinsons disease Status: Chronic Current Visit: No Code(s): G20 - Parkinson's disease (5) Venous hypertension, chronic, with inflammation Status: Chronic Current Visit: Yes Qualifiers: Laterality: bilateral Qualified Code(s): I87.323 - Chronic venous hypertension (idiopathic) with inflammation of bilateral lower extremity Code(s): I87.329 - Chronic venous hypertension (idiopathic) with inflammation of unspecified lower extremity (6) Varicose veins with inflammation Status: Chronic Current Visit: Yes Code(s): I83.10 - Varicose veins of unspecified lower extremity with inflammation (7) Chronic venous insufficiency Status: Chronic Current Visit: Yes (8) History of ulcer of lower extremity Status: Chronic Current Visit: No Code(s): Z87.2 - Personal history of diseases of the skin and subcutaneous tissue (9) Postphlebitic syndrome with inflammation Status: Chronic Current Visit: Yes Code(s): I87.029 - Postthrombotic syndrome with inflammation of unspecified lower extremity History of Present Illness Date of Service: 04/07/18 Chief Complaint: Ulceration of the right great toe History of Wound: This is a 68-year-old male who presents with a one-month history of ulceration on the dorsum of his right great toe. The patient is not sure as to the etiology. He is suspicious, however, that this may be related to pressure from an-ill fitting shoe. The patient has a long-standing history of chronic venous disease. The patient suffers from chronic venous insufficiency, varicose veins with inflammation and ulceration, venous hypertension with inflammation, postphlebitic syndrome with inflammation, etc. He has been treated for a venous ulceration on the right lateral malleolus, which has healed. He has suffered from venous disease for many years. In April 2013 he underwent endovenous laser ablation of the right great saphenous vein, the right small saphenous vein, and the right accessory saphenous vein. A subsequent venous duplex examination two months later revealed successful ablation of the right great saphenous vein, small saphenous vein, and accessory saphenous vein. The patient subsequently presented with ulcerations which occurred on the right medial malleolus and on the dorsum of the right second toe. The ulceration near the right medial malleolus appeared to be related to the patient's chronic venous disease. The ulceration on the right second toe appeared to be related to pressure from poorly-fitted work boots. The ulceration on the right second toe appeared pressure related, stage II, and likely due to swelling of the foot while wearing work boots. The patient's wound subsequently healed, the patient was discharged for as needed follow-up. Patient has been wearing graduated compression stockings of 20-30 mmHg on a daily basis. 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 The patient had also been instructed to avoid idle standing and sitting. However, it is known that the patient is relatively noncompliant with recommended treatment measures. 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 A noninvasive lower extremity arterial study performed in 2012 was normal. 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 Allergies/Adverse Reactions: Allergies No Known Allergies Allergy (Verified 08/28/17 10:21) Home Medications: Ambulatory Orders Medication Instructions Recorded Carbidopa/Levodopa 50/200 [Sinemet 1 tablet PO BIDAC 08/28/17 CR] Warfarin Sodium [Coumadin] 9 mg PO DAILY 08/28/17 - Family History Maternal No pertinent history, - - Patient's father at the age of 92 of old age. Patient's mother at the age of 76 with a history of myocardial infarction. Lives: Spouse/ Significant Other Smoking Status: Never smoker Tobacco Use: Non-smoker Alcohol: None Drugs: None Review of Systems Constitutional: Denies: Chills, Fever, Weight Change Eyes: Denies: Pain, Vision Change HEENT: Denies: Difficulty Hearing, Difficulty Swallowing, Sinus Congestion Cardiovascular: Denies: Chest Pain, Palpitations Respiratory: Denies: Cough, Shortness of Breath Gastrointestinal: Denies: Diarrhea, Nausea, Vomiting Genitourinary: Denies: Dysuria, Hematuria Endocrine: Denies: Heat/ Cold Intolerance, Polydipsia, Polyuria Hematologic/ Lymphatic: Denies: Easy Bruising, Easy Bleeding - Physical Exam Vital Signs Temp Pulse Resp BP 97.3 F L 72 18 136/86 H 04/07/18 10:05 04/07/18 10:05 04/07/18 10:05 04/07/18 10:05 General: Alert, Oriented x3, Cooperative, No apparent distress, Well developed, Well nourished HEENT: Atraumatic, PERRLA, EOMI, Normocephalic Oral: Moist Mucosa Neck: No JVD Lungs: Normal air movement Abdomen: Non-Distended Extremities: No clubbing, No cyanosis, No Calf Tenderness, - - Significant increased swelling and edema are noted in the right lower extremity and foot. There is also noted to be mild erythema involving the distal right foot and toes. The patient was noted to have an ulceration on the dorsum of the right great toe and on the right second toe. This appears to be somewhat increased from that noted 1 week ago. Dimensions are documented elsewhere. The presence of erythema is suggestive of a cellulitic process. Wound Measurements and Assessment WC - Nurse 1 - General Ulcer Measurement Start: 03/24/18 12:14 Freq: Status: Active Protocol: Activity Type Activity Date Activity User E-Sign Co-Sign Detail Recorded Client Recorded Date Recorded By Document 04/07/18 10:05 DL [id number] 04/07/18 10:15 DL 04/07/18 10:05 Wound Center Nurse 1 [Ulcer Assessment] 12- right hallux crease -Current Size (cm) - Length 0.6 -Current Size (cm) - Width 0.3 -Current Size (cm) - Depth 0.1 -Total Square Cm 0.18 -Photo Taken No -Exudate Amt Medium (34-66%) -Exudate Type Serosanguineous -Wound Margin Indistinct, Non -Visible -Granulation Amt Medium (34-66%) -Granulation Quality [place] -Necrosis Amt Medium (34-66%) -Necrotic Tissue Type Adherent Slough -Structure Exposed N/A -Texture (Tara-wound Skin Appearance) Localized Edema Scarring -Moisture (Tara-wound Skin Appearance No Abnormality ) -Color (Tara-wound Skin Appearance) Erythema Hemosiderin Staining -Temperature (Tara-wound Skin No Abnormality Appearance) (Pt Warm) -Ulcer Cleansing Wound Cleanser -Foul Odor after Cleansing No -Anesthetic Used 4% Lidocaine Solution 11-right distal hallux -Current Size (cm) - Length 0.2 -Current Size (cm) - Width 2.3 -Current Size (cm) - Depth 0.1 -Total Square Cm 0.46 -Photo Taken No -Exudate Amt Small (1-33%) -Exudate Type Serosanguineous -Wound Margin Indistinct, Non -Visible -Granulation Amt Small (1-33%) -Granulation Quality [place] -Necrosis Amt Small (1-33%) -Necrotic Tissue Type Adherent Slough -Structure Exposed N/A -Texture (Tara-wound Skin Appearance) Localized Edema Scarring -Moisture (Tara-wound Skin Appearance No Abnormality ) -Color (Tara-wound Skin Appearance) Erythema Hemosiderin Staining -Temperature (Tara-wound Skin No Abnormality Appearance) (Pt Warm) -Ulcer Cleansing Wound Cleanser -Foul Odor after Cleansing No -Anesthetic Used 4% Lidocaine Solution WC - Nurse 2 - General Ulcer CM Notes Start: 03/24/18 12:14 Freq: Status: Active Protocol: Activity Type Activity Date Activity User E-Sign Co-Sign Detail Recorded Client Recorded Date Recorded By Document 04/07/18 10:20 [email or web address] [id number] 04/07/18 10:36 [email or web address] 04/07/18 10:20 Wound Center Nurse 2 [Procedure/Treatment] 12- right hallux crease -Time 10:20 -Correct Patient Yes -Correct Side, Site, Position Yes -Correct Procedure Yes -Procedure Performed Yes -Type of Procedure Debridement -Clinical Debridement Subcutaneous -Post Debridement Size (cm) - Length 0.4 -Post Debridement Size (cm) - Width 0.3 -Post Debridement Size (cm) - Depth 0.2 -Total Square Cm 0.12 -Wound/Ulcer Outcome Not Healed -Ulcer Cleansing Rinsed/ Irrigated with Saline -Foul Odor after Cleansing No -Bioengineered Tissue No -Topical Lidocaine (%) 4 -Lidocaine (ml) 5 -Bleeding Controlled with NA -Treatment Response Procedure Tolerated Well 11-right distal hallux -Time 10:20 -Correct Patient Yes -Correct Side, Site, Position Yes -Correct Procedure Yes -Procedure Performed Yes -Type of Procedure Debridement -Clinical Debridement Subcutaneous -Post Debridement Size (cm) - Length 1.0 -Post Debridement Size (cm) - Width 1 -Post Debridement Size (cm) - Depth 0.1 -Total Square Cm 1.0 -Wound/Ulcer Outcome Not Healed -Ulcer Cleansing Rinsed/ Irrigated with Saline -Foul Odor after Cleansing No -Bioengineered Tissue No -Topical Lidocaine (%) 4 -Lidocaine (ml) 5 -Bleeding Controlled with NA -Treatment Response Procedure Tolerated Well [See Physician Procedure note for Specifics] Pain Scale: 0-10 Numeric [Pain] -Is Patient Pain Free? Yes Neurological: Cranial nerves II-XII grossly intact, Neuro grossly intact Psych/Mental Status: Normal Affect, Appropriate, Alert and oriented to time, place, person, mood and affect Debridement Note Post-Debridement Measurements/Treatment WC - Nurse 2 - General Ulcer CM Notes Start: 03/24/18 12:14 Freq: Status: Active Protocol: Activity Type Activity Date Activity User E-Sign Co-Sign Detail Recorded Client Recorded Date Recorded By Document 03/24/18 13:16 [id number] 03/24/18 13:31 JS Document 04/07/18 10:20 [id number] 04/07/18 10:36 JS 03/24/18 04/07/18 13:16 10:20 Wound Center Nurse 2 12- right hallux crease -Time 13:16 10:20 -Correct Patient Yes Yes -Correct Side, Site, Position Yes Yes -Correct Procedure Yes Yes -Procedure Performed Yes Yes -Type of Procedure Debridement Debridement -Clinical Debridement Subcutaneous Subcutaneous -Post Debridement Size (cm) - Length 0.2 0.4 -Post Debridement Size (cm) - Width 0.4 0.3 -Post Debridement Size (cm) - Depth 0.2 0.2 -Total Square Cm 0.08 0.12 -Wound/Ulcer Outcome Not Healed Not Healed -Ulcer Cleansing Rinsed/ Rinsed/ Irrigated with Irrigated with Saline Saline -Foul Odor after Cleansing No No -Bioengineered Tissue No No -Topical Lidocaine (%) 4 4 -Lidocaine (ml) 5 5 -Bleeding Controlled with NA NA -Treatment Response Procedure Procedure Tolerated Well Tolerated Well 11-right distal hallux -Time 13:17 10:20 -Correct Patient Yes Yes -Correct Side, Site, Position Yes Yes -Correct Procedure Yes Yes -Procedure Performed Yes Yes -Type of Procedure Debridement Debridement -Clinical Debridement Subcutaneous Subcutaneous -Post Debridement Size (cm) - Length 0.5 1.0 -Post Debridement Size (cm) - Width 1.2 1 -Post Debridement Size (cm) - Depth 0.1 0.1 -Total Square Cm 0.60 1.0 -Wound/Ulcer Outcome Not Healed Not Healed -Ulcer Cleansing Rinsed/ Rinsed/ Irrigated with Irrigated with Saline Saline -Foul Odor after Cleansing No No -Bioengineered Tissue No -Type of bioengineered Tissue Apligraf -Topical Lidocaine (%) 4 4 -Lidocaine (ml) 5 5 -Bleeding Controlled with NA NA -Treatment Response Procedure Procedure Tolerated Well Tolerated Well Pain Scale: 0-10 Numeric Is Patient Pain Free? Yes Yes Laterality: Right - Great toe and second toe, dorsal Type of Debridement: Excisional debridement Anesthesia Used: 4% Lidocaine Solution Depth: Down to and including healthy tissue, in the subcutaneous layer Percentage of wound debrided: 100 Instrument Used: 3mm curette Severity: Fat Layer Exposed Amount of bleeding with debridement: Mild Bleeding Controlled with: Compression and gauze Patient tolerated procedure well Assessment/Plan Active Problems Swelling of right lower extremity (Chronic) Edema leg (Chronic) Ulcer of great toe (Acute) Venous hypertension, chronic, 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 He recently presented with an ulceration on the dorsum of the right great toe. This is now extended to the adjacent right second toe dorsum. This appears to be pressure related, and likely due to ill fitted footwear. It is suspected that the patient's shoes may be properly fitted, but with swelling which occurs at the end of each day, the shoes may become too tight, causing pressure phenomenon resulting in an ulceration. He claims to have been wearing his graduated compression stockings on a daily basis. He makes an effort to elevate his lower extremities frequently. He sleeps on a flat surface at night. 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 However, given the patient's history, and his presentation today, it appears as though there is a level of noncompliance which is contributing to the patient's presenting manifestations. He continues to wear his work boots, despite admonitions to do otherwise. There has been deterioration in his condition since his visit a week ago, with increasing swelling in the right lower extremity, and the development of erythema of the distal foot and toes. It appears unlikely that he has been elevating his lower extremities as much as recommended, and has not implemented offloading measures and switched to appropriately fitted footwear. Based upon his current examination, the development of cellulitis is suspected. Plan: We are to initiate oral antibiotic, and a prescription has been provided for doxycycline 100 mg p.o. to be taken twice daily for 10 days. Ulcerations on the dorsum of his right great and second toe have been cultured for both aerobic and anaerobic bacteria. Culture results will be awaited, and the antibiotic regimen will be adjusted accordingly. The patient is to continue measures which have been previously implemented related to his venous disease. These include leg elevation, avoidance of idle standing and sitting, active lifestyle, the use of graduated compression stockings, weight control measures, etc. Offloading measures have been recommended relative to the current ulceration on the dorsum of the right great and second toe. The patient has been advised to obtain shoes of a larger size. A surgical boot has been provided. We are to obtain a noninvasive lower extremity arterial study to assess the arterial status in the right lower extremity, though a prior study from 5 years ago was normal. A venous duplex examination will also be obtained , to assure that right lower extremity venous thrombosis is not accounting for the enhanced swelling in the right lower extremity. We are to continue the use of collagenase Santyl topically on the ulcerations of the right great and second toes. Collagenase Santyl will be applied topically on a daily basis. Enhance compliance with recommended measures has been discussed. The patient has been advised to seek medical attention should the erythema and swelling in the right lower extremity worsen. The patient will return in 1 week for reassessment. As mentioned, it is suspected that the patient's right great and second toe ulcer is likely due to swelling in the patient's foot which had occurred during daytime hours, while the patient was wearing a work boot. This resulted in a pressure phenomenon, creating ulcerations. The patient has been urged to obtain more appropriately fitted footwear, but his compliance with recommended measures is suspect. The patient is to elevate his lower extremities as much as possible. He is to avoid prolonged, idle sitting. He is to continue compression with graduated compression stockings of 20-30 mmHg, worn daily. The patient is not a smoker. Influenza vaccine was not administered. Patient weighs about 170 pounds. He stands 6 feet 0 inches tall. His BMI is 23.1, which is normal.
--- NOTE | 2018-04-07 10:53 | VDLE_ITS ---
Reason For Study: leg swelling and edema RIGHT CFV is compressible, spontaneous, phasic, competent and demonstrates normal augmentation. FV, POP V and T/P trunk are partially compressible with bright intraluminal echoes. FV is competent upon augmentation. POP V is incompetent upon augmentation. GSV is absent. PTV is compressible. RT PerV is compressible. Procedure Exam performed in department. The exam was diagnostic. A preliminary report was called and/or faxed to Dr. Liz. Interpretation Summary Chronic venous changes are noted in the right femoral vein, popliteal vein, and tibio-peroneal trunk, which are partially compressible and demonstrate bright intraluminal echogenicity. The remainder of the right lower extremity deep venous system is patent and compressible. The right popliteal vein is incompetent. The right common femoral vein and femoral vein are competent. The right great saphenous vein is absent. Ordering Physician: Tip Liz Performed By: Victor M Mccullough RVT
--- NOTE | 2018-04-07 17:13 | LEAS ---
Arterial Study - Arterial Study Arterial Study: This is a 68-year-old male with right lower extremity wounds and cellulitis. Suspecting the presence of atherosclerotic peripheral arterial occlusive disease, the patient was brought to the noninvasive vascular laboratory at this time for the purpose of bilateral noninvasive lower extremity arterial assessment. Doppler signal assessment was used to evaluate the pulses at ankle level bilaterally. Posterior tibial and dorsalis pedis pulses were triphasic bilaterally. Segmental limb pressures were obtained bilaterally. The right ankle pressure, as determined by posterior tibial pulse, was measured at 177 mmHg. The right ankle pressure, as determined by dorsalis pedis pulse, was measured at 161 mmHg. The right digital pressure was measured at 102 mmHg. The left ankle pressure, as determined by posterior tibial and dorsalis pedis pulses, could not be determined due to the noncompressibility of the vasculature. The left digital pressure was measured at 106 mmHg. Pulse-volume recordings were obtained bilaterally and segmentally. Waveform amplitudes appeared to be satisfactory at all levels bilaterally, including low thigh, calf, ankle, and digital levels bilaterally. Resting ankle-brachial indices were calculated. The resting right ankle-brachial index was calculated to be 1.51. The resting left ankle-brachial index could not be determined due to the noncompressibility of the vasculature. Digital-brachial indices were calculated bilaterally. The right digital-brachial index was calculated to be 0.87. The left digital-brachial index was calculated to be 0.91. Impression: Based on findings of this resting noninvasive lower extremity arterial study, there is no evidence of significant atherosclerotic peripheral arterial occlusive disease in the lower extremities bilaterally. Triphasic waveforms were noted at ankle level bilaterally. The resting right ankle-brachial index is supra-normal, likely due to arterial calcification. Ankle pressures and ankle-brachial indices in the left lower extremity could not be determined due to the noncompressibility of the vasculature, also likely due to arterial calcification rendering the arterial tree noncompressible. Digital-brachial indices are bilaterally normal. Findings of this study suggest relatively normal arterial perfusion, though with evidence of arterial calcification in the arterial tree bilaterally.
--- NOTE | 2018-04-07 17:37 | LEAS_ITS ---
Arterial Study - Arterial Study Arterial Study: This is a 68-year-old male with right lower extremity wounds and cellulitis. Suspecting the presence of atherosclerotic peripheral arterial occlusive disease , the patient was brought to the noninvasive vascular laboratory at this time for the purpose of bilateral noninvasive lower extremity arterial assessment. Doppler signal assessment was used to evaluate the pulses at ankle level bilaterally. Posterior tibial and dorsalis pedis pulses were triphasic bilaterally. Segmental limb pressures were obtained bilaterally. The right ankle pressure, as determined by posterior tibial pulse, was measured at 177 mmHg. The right ankle pressure, as determined by dorsalis pedis pulse, was measured at 161 mmHg. The right digital pressure was measured at 102 mmHg. The left ankle pressure, as determined by posterior tibial and dorsalis pedis pulses, could not be determined due to the noncompressibility of the vasculature. The left digital pressure was measured at 106 mmHg. Pulse-volume recordings were obtained bilaterally and segmentally. Waveform amplitudes appeared to be satisfactory at all levels bilaterally, including low thigh, calf, ankle, and digital levels bilaterally. Resting ankle-brachial indices were calculated. The resting right ankle- brachial index was calculated to be 1.51. The resting left ankle-brachial index could not be determined due to the noncompressibility of the vasculature. Digital-brachial indices were calculated bilaterally. The right digital- brachial index was calculated to be 0.87. The left digital-brachial index was calculated to be 0.91. Impression: Based on findings of this resting noninvasive lower extremity arterial study, there is no evidence of significant atherosclerotic peripheral arterial occlusive disease in the lower extremities bilaterally. Triphasic waveforms were noted at ankle level bilaterally. The resting right ankle- brachial index is supra-normal, likely due to arterial calcification. Ankle pressures and ankle-brachial indices in the left lower extremity could not be determined due to the noncompressibility of the vasculature, also likely due to arterial calcification rendering the arterial tree noncompressible. Digital- brachial indices are bilaterally normal. Findings of this study suggest relatively normal arterial perfusion, though with evidence of arterial calcification in the arterial tree bilaterally.
[2018-04-16 10:39] VITALS: BP 127/72; PULSE 53; RESP 16; TEMP 36.9; BMI 23.7
--- NOTE | 2018-04-16 12:28 | PN.PCM_ITS ---
(1) Ulcer of great toe Status: Acute Current Visit: Yes Qualifiers: Laterality: right Non-pressure ulcer stage: with fat layer exposed Qualified Code(s): L97.512 - Non-pressure chronic ulcer of other part of right foot with fat layer exposed Code(s): L97.509 - Non-pressure chronic ulcer of other part of unspecified foot with unspecified severity (2) Ulcer, pressure Status: Resolved Current Visit: Yes Code(s): L89.90 - Pressure ulcer of unspecified site, unspecified stage Type of Wound Date of Service: 04/16/18 Chief Complaint: Ulceration of the right great toe History of Wound: This is a 68-year-old male who presents with a one-month history of ulceration on the dorsum of his right great toe. The patient is not sure as to the etiology. He is suspicious, however, that this may be related to pressure from an-ill fitting shoe. The patient has a long-standing history of chronic venous disease. The patient suffers from chronic venous insufficiency, varicose veins with inflammation and ulceration, venous hypertension with inflammation, postphlebitic syndrome with inflammation, etc. He has been treated for a venous ulceration on the right lateral malleolus, which has healed. He has suffered from venous disease for many years. In April 2013 he underwent endovenous laser ablation of the right great saphenous vein, the right small saphenous vein, and the right accessory saphenous vein. A subsequent venous duplex examination two months later revealed successful ablation of the right great saphenous vein, small saphenous vein, and accessory saphenous vein. The patient subsequently presented with ulcerations which occurred on the right medial malleolus and on the dorsum of the right second toe. The ulceration near the right medial malleolus appeared to be related to the patient's chronic venous disease. The ulceration on the right second toe appeared to be related to pressure from poorly-fitted work boots. The ulceration on the right second toe appeared pressure related, stage II, and likely due to swelling of the foot while wearing work boots. The patient's wound subsequently healed, the patient was discharged for as needed follow-up. Patient has been wearing graduated compression stockings of 20-30 mmHg on a daily basis. 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 The patient had also been instructed to avoid idle standing and sitting. However, it is known that the patient is relatively noncompliant with recommended treatment measures. 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 A noninvasive lower extremity arterial study performed in 2012 was normal. Progress of Wound: Courtesy Visit for Dr. Liz. He has no new complaints at this time. He has completed his course of antibiotics. - Physical Exam Vital Signs Temp Pulse Resp BP 98.4 F 53 L 16 127/72 H 04/16/18 10:39 04/16/18 10:39 04/16/18 10:39 04/16/18 10:39 General: Alert, Oriented x3, Cooperative, No apparent distress HEENT: Atraumatic Oral: Moist Mucosa Neck: Supple Lungs: Normal air movement Extremities: No cyanosis, Edema Wound Measurements and Assessment WC - Nurse 1 - General Ulcer Measurement Start: 03/24/18 12:14 Freq: Status: Active Protocol: Activity Type Activity Date Activity User E-Sign Co-Sign Detail Recorded Client Recorded Date Recorded By Document 04/16/18 10:39 [facility] [id number] 04/16/18 10:48 [facility] 04/16/18 10:39 Wound Center Nurse 1 [Ulcer Assessment] 12- right hallux crease -Combined with other wound No -Current Size (cm) - Length 1.1 -Current Size (cm) - Width 0.9 -Current Size (cm) - Depth 0.1 -Total Square Cm 0.99 -Photo Taken No -Epithelialization Small 1-33% -Tunneling No -Undermining/Tunneling No -Circular Undermining No -Exudate Amt Small (1-33%) -Exudate Type Serosanguineous -Wound Margin Distinct, Outline Attached -Granulation Amt Medium (34-66%) -Granulation Quality Red -Slough/Fibrin Yes -Necrosis Amt Medium (34-66%) -Necrotic Tissue Type Adherent Slough -Texture (Tara-wound Skin Appearance) Scarring -Moisture (Tara-wound Skin Appearance Maceration ) -Color (Tara-wound Skin Appearance) Erythema Palor -Temperature (Tara-wound Skin No Abnormality Appearance) (Pt Warm) -Tenderness on Palpation (Tara-wound No Skin Appearance) -Ulcer Cleansing Rinsed/ Irrigated with Saline -Foul Odor after Cleansing No -Anesthetic Used 4% Lidocaine Solution 11-right distal hallux -Combined with other wound No -Current Size (cm) - Length 0.1 -Current Size (cm) - Width 2.6 -Current Size (cm) - Depth 0.1 -Total Square Cm 0.26 -Photo Taken No -Epithelialization Small 1-33% -Tunneling No -Undermining/Tunneling No -Circular Undermining No -Exudate Amt Small (1-33%) -Exudate Type Serosanguineous -Wound Margin Distinct, Outline Attached -Granulation Amt Medium (34-66%) -Granulation Quality Red -Slough/Fibrin Yes -Necrosis Amt Medium (34-66%) -Necrotic Tissue Type Adherent Slough -Structure Exposed None/Limited to Skin Breakdown -Texture (Tara-wound Skin Appearance) Scarring -Moisture (Tara-wound Skin Appearance Maceration ) Weeping -Color (Tara-wound Skin Appearance) Erythema Palor -Temperature (Tara-wound Skin No Abnormality Appearance) (Pt Warm) -Tenderness on Palpation (Tara-wound No Skin Appearance) -Ulcer Cleansing Rinsed/ Irrigated with Saline -Foul Odor after Cleansing No -Anesthetic Used 4% Lidocaine Solution [Edema Assessment] -Lower Limb Edema Present Yes -Right Calf (cm) 39.5 -Right Ankle (cm) 24.6 WC - Nurse 2 - General Ulcer CM Notes Start: 03/24/18 12:14 Freq: Status: Active Protocol: Activity Type Activity Date Activity User E-Sign Co-Sign Detail Recorded Client Recorded Date Recorded By Document 04/16/18 12:02 [id number] 04/16/18 12:04 04/16/18 12:02 Wound Center Nurse 2 [Procedure/Treatment] 12- right hallux crease -Time 12:02 -Correct Patient Yes -Correct Side, Site, Position Yes -Correct Procedure Yes -Procedure Performed Yes -Type of Procedure Debridement -Clinical Debridement Subcutaneous -Post Debridement Size (cm) - Length 1.0 -Post Debridement Size (cm) - Width 0.9 -Post Debridement Size (cm) - Depth 0.1 -Total Square Cm 0.90 -Wound/Ulcer Outcome Not Healed -Ulcer Cleansing Rinsed/ Irrigated with Saline -Foul Odor after Cleansing No -Bioengineered Tissue No -Topical Lidocaine (%) 4 -Bleeding Controlled with Pressure -Treatment Response Procedure Tolerated Well 11-right distal hallux -Time 12:03 -Correct Patient Yes -Correct Side, Site, Position Yes -Correct Procedure Yes -Procedure Performed Yes -Type of Procedure Debridement -Clinical Debridement Subcutaneous -Post Debridement Size (cm) - Length 0.2 -Post Debridement Size (cm) - Width 2.6 -Post Debridement Size (cm) - Depth 0.1 -Total Square Cm 0.52 -Wound/Ulcer Outcome Not Healed -Ulcer Cleansing Rinsed/ Irrigated with Saline -Foul Odor after Cleansing No -Bioengineered Tissue No -Topical Lidocaine (%) 4 -Bleeding Controlled with Pressure -Treatment Response Procedure Tolerated Well [See Physician Procedure note for Specifics] Pain Scale: 0-10 Numeric [Pain] -Is Patient Pain Free? Yes Musculoskeletal: No Muscle Wasting Neurological: Cranial nerves II-XII grossly intact Psych/Mental Status: Normal Affect Debridement Note Post-Debridement Measurements/Treatment WC - Nurse 2 - General Ulcer CM Notes Start: 03/24/18 12:14 Freq: Status: Active Protocol: Activity Type Activity Date Activity User E-Sign Co-Sign Detail Recorded Client Recorded Date Recorded By Document 03/24/18 13:16 [id number] 03/24/18 13:31 JS Document 04/07/18 10:20 [id number] 04/07/18 10:36 Document 04/16/18 12:02 [id number] 04/16/18 12:04 03/24/18 04/07/18 04/16/18 13:16 10:20 12:02 Wound Center Nurse 2 12- right hallux crease -Time 13:16 10:20 12:02 -Correct Patient Yes Yes Yes -Correct Side, Site, Position Yes Yes Yes -Correct Procedure Yes Yes Yes -Procedure Performed Yes Yes Yes -Type of Procedure Debridement Debridement Debridement -Clinical Debridement Subcutaneous Subcutaneous Subcutaneous -Post Debridement Size (cm) - Length 0.2 0.4 1.0 -Post Debridement Size (cm) - Width 0.4 0.3 0.9 -Post Debridement Size (cm) - Depth 0.2 0.2 0.1 -Total Square Cm 0.08 0.12 0.90 -Wound/Ulcer Outcome Not Healed Not Healed Not Healed -Ulcer Cleansing Rinsed/ Rinsed/ Rinsed/ Irrigated with Irrigated with Irrigated with Saline Saline Saline -Foul Odor after Cleansing No No No -Bioengineered Tissue No No No -Topical Lidocaine (%) 4 4 4 -Lidocaine (ml) 5 5 -Bleeding Controlled with NA NA Pressure -Treatment Response Procedure Procedure Procedure Tolerated Well Tolerated Well Tolerated Well 11-right distal hallux -Time 13:17 10:20 12:03 -Correct Patient Yes Yes Yes -Correct Side, Site, Position Yes Yes Yes -Correct Procedure Yes Yes Yes -Procedure Performed Yes Yes Yes -Type of Procedure Debridement Debridement Debridement -Clinical Debridement Subcutaneous Subcutaneous Subcutaneous -Post Debridement Size (cm) - Length 0.5 1.0 0.2 -Post Debridement Size (cm) - Width 1.2 1 2.6 -Post Debridement Size (cm) - Depth 0.1 0.1 0.1 -Total Square Cm 0.60 1.0 0.52 -Wound/Ulcer Outcome Not Healed Not Healed Not Healed -Ulcer Cleansing Rinsed/ Rinsed/ Rinsed/ Irrigated with Irrigated with Irrigated with Saline Saline Saline -Foul Odor after Cleansing No No No -Bioengineered Tissue No No -Type of bioengineered Tissue Apligraf -Topical Lidocaine (%) 4 4 4 -Lidocaine (ml) 5 5 -Bleeding Controlled with NA NA Pressure -Treatment Response Procedure Procedure Procedure Tolerated Well Tolerated Well Tolerated Well Pain Scale: 0-10 Numeric Is Patient Pain Free? Yes Yes Yes Wound debrided: Right hallux Wound Grade/Stage: Stage II Type of Debridement: Excisional debridement Anesthesia Used: 4% Lidocaine Solution Depth: Down to and including healthy tissue, in the subcutaneous layer Percentage of wound debrided: 100 Instrument Used: 3mm curette Tissue Removed: Slough and devitalized tissue Severity: Fat Layer Exposed Amount of bleeding with debridement: Mild Bleeding Controlled with: Pressure Patient tolerated procedure well - Additional Wound Wound debrided: Right second toe Wound Grade/Stage: Stage II Type of Debridement: Excisional debridement Anesthesia Used: 4% Lidocaine Solution Depth: Down to and including healthy tissue, in the subcutaneous layer Percentage of wound debrided: 100 Instrument Used: 3mm curette Tissue Removed: Slough and devitalized tissue Severity: Fat Layer Exposed Amount of bleeding with debridement: Mild Bleeding Controlled with: Pressure Patient tolerated procedure: Patient tolerated procedure well Assessment/Plan Active Problems Swelling of right lower extremity (Chronic) Edema leg (Chronic) Ulcer of great toe (Acute) Venous hypertension, chronic, 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 He recently presented with an ulceration on the dorsum of the right great toe. This is now extended to the adjacent right second toe dorsum. This appears to be pressure related, and likely due to ill fitted footwear. It is suspected that the patient's shoes may be properly fitted, but with swelling which occurs at the end of each day, the shoes may become too tight, causing pressure phenomenon resulting in an ulceration. He claims to have been wearing his graduated compression stockings on a daily basis. He makes an effort to elevate his lower extremities frequently. He sleeps on a flat surface at night. 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 However, given the patient's history, and his presentation today, it appears as though there is a level of noncompliance which is contributing to the patient's presenting manifestations. He continues to wear his work boots, despite admonitions to do otherwise. There has been deterioration in his condition since his visit a week ago, with increasing swelling in the right lower extremity, and the development of erythema of the distal foot and toes. It appears unlikely that he has been elevating his lower extremities as much as recommended, and has not implemented offloading measures and switched to appropriately fitted footwear. Based upon his current examination, the development of cellulitis is suspected. Plan: Debridement done as documented above. Procedure was well-tolerated. Switch from Santyl to Promogran daily, cover with Adaptic. He has completed his course of antibiotics. Elevate lower extremities when seated. Increase protein intake recommended. Follow-up in [address] Liz. This note was generated with [employer] dictation software. It may contain incorrect words, spelling, and punctuation that were not noted in checking the note before signing.
[2018-04-21 10:00] VITALS: BP 121/52; PULSE 57; RESP 16; TEMP 36.6; BMI 23.7
--- NOTE | 2018-04-21 10:58 | HP.PCM_ITS ---
(1) Swelling of right lower extremity Status: Chronic Current Visit: Yes Code(s): M79.89 - Other specified soft tissue disorders (2) Edema leg Status: Chronic Current Visit: Yes Code(s): R60.0 - Localized edema (3) Ulcer of great toe Status: Acute Current Visit: Yes Qualifiers: Laterality: right Non-pressure ulcer stage: with fat layer exposed Qualified Code(s): L97.512 - Non-pressure chronic ulcer of other part of right foot with fat layer exposed Code(s): L97.509 - Non-pressure chronic ulcer of other part of unspecified foot with unspecified severity (4) Parkinsons disease Status: Chronic Current Visit: No Code(s): G20 - Parkinson's disease (5) Venous hypertension, chronic, with inflammation Status: Chronic Current Visit: Yes Qualifiers: Laterality: bilateral Qualified Code(s): I87.323 - Chronic venous hypertension (idiopathic) with inflammation of bilateral lower extremity Code(s): I87.329 - Chronic venous hypertension (idiopathic) with inflammation of unspecified lower extremity (6) Varicose veins with inflammation Status: Chronic Current Visit: Yes Code(s): I83.10 - Varicose veins of unspecified lower extremity with inflammation (7) Chronic venous insufficiency Status: Chronic Current Visit: Yes (8) History of ulcer of lower extremity Status: Chronic Current Visit: No Code(s): Z87.2 - Personal history of diseases of the skin and subcutaneous tissue (9) Postphlebitic syndrome with inflammation Status: Chronic Current Visit: Yes Code(s): I87.029 - Postthrombotic syndrome with inflammation of unspecified lower extremity History of Present Illness Date of Service: 04/21/18 Chief Complaint: Ulceration of the right great toe History of Wound: This is a 68-year-old male who presented with a one-month history of ulceration on the dorsum of his right great toe. The patient was not sure as to the etiology. He is suspicious, however, that this may be related to pressure from an-ill fitting shoe. The patient has a long-standing history of chronic venous disease. The patient suffers from chronic venous insufficiency, varicose veins with inflammation and ulceration, venous hypertension with inflammation, postphlebitic syndrome with inflammation, etc. He has been treated for a venous ulceration on the right lateral malleolus, which has healed. He has suffered from venous disease for many years. In April 2013 he underwent endovenous laser ablation of the right great saphenous vein, the right small saphenous vein, and the right accessory saphenous vein. A subsequent venous duplex examination two months later revealed successful ablation of the right great saphenous vein, small saphenous vein, and accessory saphenous vein. The patient subsequently presented with ulcerations which occurred on the right medial malleolus and on the dorsum of the right second toe. The ulceration near the right medial malleolus appeared to be related to the patient's chronic venous disease. The ulceration on the right second toe appeared to be related to pressure from poorly-fitted work boots. The ulceration on the right second toe appeared pressure related, stage II, and likely due to swelling of the foot while wearing work boots. The patient's wound subsequently healed, the patient was discharged for as needed follow-up. Patient has been wearing graduated compression stockings of 20-30 mmHg on a daily basis. 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 The patient had also been instructed to avoid idle standing and sitting. However, it is known that the patient is relatively noncompliant with recommended treatment measures. 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 A noninvasive lower extremity arterial study performed in 2012 was normal. 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 Allergies/Adverse Reactions: Allergies No Known Allergies Allergy (Verified 08/28/17 10:21) Home Medications: Ambulatory Orders Medication Instructions Recorded Carbidopa/Levodopa 50/200 [Sinemet 1 tablet PO BIDAC 08/28/17 CR] Warfarin Sodium [Coumadin] 9 mg PO DAILY 08/28/17 - Family History Maternal No pertinent history, - - Patient's father at the age of 92 of old age. Patient's mother at the age of 76 with a history of myocardial infarction. Lives: Spouse/ Significant Other Smoking Status: Never smoker Tobacco Use: Non-smoker Alcohol: None Drugs: None Review of Systems Constitutional: Denies: Chills, Fever, Weight Change Eyes: Denies: Pain, Vision Change HEENT: Denies: Difficulty Hearing, Difficulty Swallowing, Sinus Congestion Cardiovascular: Denies: Chest Pain, Palpitations Respiratory: Denies: Cough, Shortness of Breath Gastrointestinal: Denies: Diarrhea, Nausea, Vomiting Genitourinary: Denies: Dysuria, Hematuria Endocrine: Denies: Heat/ Cold Intolerance, Polydipsia, Polyuria Hematologic/ Lymphatic: Denies: Easy Bruising, Easy Bleeding - Physical Exam Vital Signs Temp Pulse Resp BP 97.8 F 57 L 16 121/52 H 04/21/18 10:00 04/21/18 10:00 04/21/18 10:04/21/18 10:00 General: Alert, Oriented x3, Cooperative, No apparent distress, Well developed, Well nourished HEENT: Atraumatic, PERRLA, EOMI, Normocephalic Oral: Moist Mucosa Neck: No JVD Lungs: Normal air movement Abdomen: Non-Distended Extremities: No clubbing, No cyanosis, No edema, No Calf Tenderness, - - There is no significant swelling or edema in the right lower extremity. Chronic areas of hyperpigmentation are noted in the right gaiter area. The ulceration on the dorsum of the right great toe is nearly healed. The ulceration on the dorsum of the right second toe is pink and healthy in appearance, with active granulation tissue. Dimensions are documented elsewhere. The base of the ulcerations are pink and healthy in appearance. There is only minimal bioburden. There is no sign of infection or cellulitis. Skin: No rashes Wound Measurements and Assessment WC - Nurse 1 - General Ulcer Measurement Start: 03/24/18 12:14 Freq: Status: Active Protocol: Activity Type Activity Date Activity User E-Sign Co-Sign Detail Recorded Client Recorded Date Recorded By Document 04/21/18 10:00 NITESH [id number] 04/21/18 10:10 JF 04/21/18 10:00 Wound Center Nurse 1 [Ulcer Assessment] 13-right 2nd toe cluster -Combined with other wound No -Current Size (cm) - Length 2.1 -Current Size (cm) - Width 0.9 -Current Size (cm) - Depth 0.1 -Total Square Cm 1.89 -Photo Taken Yes -Epithelialization Small 1-33% -Tunneling No -Undermining/Tunneling No -Circular Undermining No -Classification - Thickness Full Thickness without Exposed Support Structure -Exudate Amt Small (1-33%) -Exudate Type Serosanguineous -Wound Margin Flat & Intact -Granulation Amt Large (67-100%) -Granulation Quality Red -Slough/Fibrin Yes -Necrosis Amt Small (1-33%) -Necrotic Tissue Type Adherent Slough -Structure Exposed N/A -Texture (Tara-wound Skin Appearance) Assessed Localized Edema -Moisture (Tara-wound Skin Appearance Assessed ) Dry/Scaly -Color (Tara-wound Skin Appearance) Assessed Hemosiderin Staining -Temperature (Tara-wound Skin No Abnormality Appearance) (Pt Warm) -Tenderness on Palpation (Tara-wound No Skin Appearance) -Ulcer Cleansing Wound Cleanser -Foul Odor after Cleansing No -Anesthetic Used 4% Lidocaine Solution 12- right hallux crease -Combined with other wound No -Current Size (cm) - Length 0.2 -Current Size (cm) - Width 0.3 -Current Size (cm) - Depth 0.1 -Total Square Cm 0.06 -Photo Taken Yes -Epithelialization Large 67-100% -Tunneling No -Undermining/Tunneling No -Circular Undermining No -Exudate Amt Small (1-33%) -Exudate Type Serosanguineous -Wound Margin Flat & Intact -Granulation Amt None Present (0 %) -Slough/Fibrin Yes -Necrosis Amt Large (67-100%) -Necrotic Tissue Type Adherent Slough -Structure Exposed N/A -Texture (Tara-wound Skin Appearance) Assessed Localized Edema -Moisture (Tara-wound Skin Appearance Assessed ) Dry/Scaly -Color (Tara-wound Skin Appearance) Assessed -Temperature (Tara-wound Skin No Abnormality Appearance) (Pt Warm) -Tenderness on Palpation (Tara-wound No Skin Appearance) -Ulcer Cleansing Rinsed/ Irrigated with Saline -Foul Odor after Cleansing No -Anesthetic Used 4% Lidocaine Solution 11-right distal hallux -Combined with other wound No -Current Size (cm) - Length 0.2 -Current Size (cm) - Width 1.5 -Current Size (cm) - Depth 0.2 -Total Square Cm 0.30 -Photo Taken Yes -Epithelialization Medium 34-66% -Tunneling No -Undermining/Tunneling No -Circular Undermining No -Exudate Amt Large (67-100%) -Exudate Type Yellow/Green -Wound Margin Flat & Intact -Granulation Amt Medium (34-66%) -Granulation Quality Red -Slough/Fibrin Yes -Necrosis Amt Small (1-33%) -Necrotic Tissue Type Adherent Slough -Structure Exposed N/A -Texture (Tara-wound Skin Appearance) Assessed Localized Edema -Moisture (Tara-wound Skin Appearance Assessed ) Dry/Scaly -Color (Tara-wound Skin Appearance) Assessed -Temperature (Tara-wound Skin No Abnormality Appearance) (Pt Warm) -Tenderness on Palpation (Tara-wound No Skin Appearance) -Ulcer Cleansing Rinsed/ Irrigated with Saline -Foul Odor after Cleansing No -Anesthetic Used 4% Lidocaine Solution [Edema Assessment] -Lower Limb Edema Present Yes -Right Calf (cm) 40.2 -Right Ankle (cm) 24.7 Neurological: Cranial nerves II-XII grossly intact, Neuro grossly intact Psych/Mental Status: Normal Affect, Appropriate, Alert and oriented to time, place, person, mood and affect Debridement Note Post-Debridement Measurements/Treatment WC - Nurse 2 - General Ulcer CM Notes Start: 03/24/18 12:14 Freq: Status: Active Protocol: Activity Type Activity Date Activity User E-Sign Co-Sign Detail Recorded Client Recorded Date Recorded By Document 03/24/18 13:16 [id number] 03/24/18 13:31 JS Document 04/07/18 10:20 JS [id number] 04/07/18 10:36 JS Document 04/16/18 12:02 [id number] 04/16/18 12:04 TM 03/24/18 04/07/18 04/16/18 13:16 10:20 12:02 Wound Center Nurse 2 12- right hallux crease -Time 13:16 10:20 12:02 -Correct Patient Yes Yes Yes -Correct Side, Site, Position Yes Yes Yes -Correct Procedure Yes Yes Yes -Procedure Performed Yes Yes Yes -Type of Procedure Debridement Debridement Debridement -Clinical Debridement Subcutaneous Subcutaneous Subcutaneous -Post Debridement Size (cm) - Length 0.2 0.4 0.4 -Post Debridement Size (cm) - Width 0.4 0.3 0.9 -Post Debridement Size (cm) - Depth 0.2 0.2 0.1 -Total Square Cm 0.08 0.12 0.36 -Wound/Ulcer Outcome Not Healed Not Healed Not Healed -Ulcer Cleansing Rinsed/ Rinsed/ Rinsed/ Irrigated with Irrigated with Irrigated with Saline Saline Saline -Foul Odor after Cleansing No No No -Bioengineered Tissue No No No -Topical Lidocaine (%) 4 4 4 -Lidocaine (ml) 5 5 -Bleeding Controlled with NA NA Pressure -Treatment Response Procedure Procedure Procedure Tolerated Well Tolerated Well Tolerated Well 11-right distal hallux -Time 13:17 10:20 12:03 -Correct Patient Yes Yes Yes -Correct Side, Site, Position Yes Yes Yes -Correct Procedure Yes Yes Yes -Procedure Performed Yes Yes Yes -Type of Procedure Debridement Debridement Debridement -Clinical Debridement Subcutaneous Subcutaneous Subcutaneous -Post Debridement Size (cm) - Length 0.5 1.0 1.0 -Post Debridement Size (cm) - Width 1.2 1 0.6 -Post Debridement Size (cm) - Depth 0.1 0.1 0.1 -Total Square Cm 0.60 1.0 0.60 -Wound/Ulcer Outcome Not Healed Not Healed Not Healed -Ulcer Cleansing Rinsed/ Rinsed/ Rinsed/ Irrigated with Irrigated with Irrigated with Saline Saline Saline -Foul Odor after Cleansing No No No -Bioengineered Tissue No No -Type of bioengineered Tissue Apligraf -Topical Lidocaine (%) 4 4 4 -Lidocaine (ml) 5 5 -Bleeding Controlled with NA NA Pressure -Treatment Response Procedure Procedure Procedure Tolerated Well Tolerated Well Tolerated Well Pain Scale: 0-10 Numeric Is Patient Pain Free? Yes Yes Yes Laterality: Right - Great toe Type of Debridement: Excisional debridement Anesthesia Used: 4% Lidocaine Solution Depth: Down to and including healthy tissue, in the subcutaneous layer Percentage of wound debrided: 100 Instrument Used: 5mm curette Severity: Fat Layer Exposed Amount of bleeding with debridement: Mild Bleeding Controlled with: Compression and gauze Patient tolerated procedure well - Additional Wound Laterality: Right - Second toe Type of Debridement: Excisional debridement Anesthesia Used: 4% Lidocaine Solution Depth: Down to and including healthy tissue, in the subcutaneous layer Percentage of wound debrided: 100 Instrument Used: 5mm curette Severity: Fat Layer Exposed Amount of bleeding with debridement: Mild Bleeding Controlled with: Compression and gauze Patient tolerated procedure: Patient tolerated procedure well Assessment/Plan Active Problems Swelling of right lower extremity (Chronic) Edema leg (Chronic) Ulcer of great toe (Acute) Venous hypertension, chronic, 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 He recently presented with an ulceration on the dorsum of the right great toe. This is now extended to the adjacent right second toe dorsum. This appears to be pressure related, and likely due to ill fitted footwear. It is suspected that the patient's shoes may be properly fitted, but with swelling which occurs at the end of each day, the shoes may become too tight, causing pressure phenomenon resulting in an ulceration. He claims to have been wearing his graduated compression stockings on a daily basis. He makes an effort to elevate his lower extremities frequently. He sleeps on a flat surface at night. 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 However, given the patient's history, and his presentation today, it appears as though there is a level of noncompliance which is contributing to the patient's presenting manifestations. He continues to wear his work boots, despite admonitions to do otherwise. Although it does appear as though the patient has recently obtained alternative footwear of a larger size, complying with recommendations for offloading of the critical areas on the dorsum of the toes of the right foot. The swelling, edema, erythema noted in the distal right lower extremity and foot several weeks ago has now resolved. Patient has completed his prescription for doxycycline. Plan: Debridement done as documented above. Procedure was well-tolerated. The patient has shown response to the use of Promogran. We will switch to the use of Elma, which will be applied either daily or every other day. Patient is to continue elevating his lower extremities as much as possible. He is to avoid idle sitting and standing. Activity has been encouraged. He has been advised to continue wearing graduated compression stockings as previously prescribed. Patient will return in 1 week for reevaluation. The patient is not a smoker. Influenza vaccine was not administered today. The patient weighs 170 pounds. He stands 6 feet 0 inches tall. His BMI is 23.1, which is normal.
== END 2018-04-21 23:59 ==
LOC: WC 10:00
PROVIDERS: Family Provider Family Medicine; PCP Family Medicine; Visit Provider Surgery
DX: I83.215 Varicose veins of right lower extremity with both ulcer other part of foot and inflammation (principal); L97.512 Non-pressure chronic ulcer of other part of right foot with fat layer exposed; M79.89 Other specified soft tissue disorders; R60.0 Localized edema; G20 Parkinson's disease; Z91.19 Patient's noncompliance with other medical treatment and regimen
CPT/HCPCS: 11042; 87070; 87075; 87077; 87186; 87205; 93923; 93971; 99213; G0463

== ENCOUNTER 2018-05-19 10:45 | Outpatient (RCR) | payer MEDICARE, OTHER, SELFPAY ==
[2018-04-22 01:17] VITALS: BP 121/52; PULSE 57; RESP 16; TEMP 36.6
[2018-04-28 10:38] VITALS: BP 117/73; PULSE 61; RESP 18; TEMP 36.4
--- NOTE | 2018-04-28 11:48 | PCM.WC.HP ---
(1) Swelling of right lower extremity Status: Chronic Current Visit: Yes Code(s): M79.89 - Other specified soft tissue disorders (2) Edema leg Status: Chronic Current Visit: Yes Code(s): R60.0 - Localized edema (3) Ulcer of great toe Status: Chronic Current Visit: Yes Qualifiers: Laterality: right Non-pressure ulcer stage: with fat layer exposed Qualified Code(s): L97.512 - Non-pressure chronic ulcer of other part of right foot with fat layer exposed Code(s): L97.509 - Non-pressure chronic ulcer of other part of unspecified foot with unspecified severity (4) Parkinsons disease Status: Chronic Current Visit: No Code(s): G20 - Parkinson's disease (5) Venous hypertension, chronic, with inflammation Status: Chronic Current Visit: No Qualifiers: Laterality: bilateral Code(s): I87.329 - Chronic venous hypertension (idiopathic) with inflammation of unspecified lower extremity (6) Varicose veins with inflammation Status: Chronic Current Visit: No Code(s): I83.10 - Varicose veins of unspecified lower extremity with inflammation (7) Venous hypertension, chronic, with ulcer and inflammation Status: Chronic Current Visit: No Qualifiers: Laterality: bilateral Qualified Code(s): I87.333 - Chronic venous hypertension (idiopathic) with ulcer and inflammation of bilateral lower extremity; L97.919 - Non-pressure chronic ulcer of unspecified part of right lower leg with unspecified severity; L97.929 - Non-pressure chronic ulcer of unspecified part of left lower leg with unspecified severity Code(s): I87.339 - Chronic venous hypertension (idiopathic) with ulcer and inflammation of unspecified lower extremity (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 Current Visit: No Code(s): I87.091 - Postthrombotic syndrome with other complications of right lower extremity (9) Varicose veins with ulcer and inflammation Status: Chronic Current Visit: No Code(s): I83.209 - Varicose veins of unspecified lower extremity with both ulcer of unspecified site and inflammation; L97.909 - Non-pressure chronic ulcer of unspecified part of unspecified lower leg with unspecified severity (10) Chronic venous insufficiency Status: Chronic Current Visit: No (11) Venous ulcer of ankle Status: Resolved Current Visit: No Qualifiers: Code(s): I83.003 - Varicose veins of unspecified lower extremity with ulcer of ankle (12) Venous ulcer of right lower extremity with varicose veins Status: Resolved Current Visit: No Code(s): I83.019 - Varicose veins of right lower extremity with ulcer of unspecified site (13) History of ulcer of lower extremity Status: Chronic Current Visit: No Code(s): Z87.2 - Personal history of diseases of the skin and subcutaneous tissue (14) Postphlebitic syndrome with inflammation Status: Chronic Current Visit: No Code(s): I87.029 - Postthrombotic syndrome with inflammation of unspecified lower extremity (15) Ulcer, pressure Status: Resolved Current Visit: Yes Qualifiers: Pressure injury location: toe Pressure injury stage: stage 2 Laterality: right Qualified Code(s): L89.892 - Pressure ulcer of other site, stage 2 Code(s): L89.90 - Pressure ulcer of unspecified site, unspecified stage History of Present Illness Date of Service: 04/28/18 Chief Complaint: Ulceration of the right great toe History of Wound: This is a 68-year-old male who presented with a one-month history of ulceration on the dorsum of his right great toe. The patient was not sure as to the etiology. He is suspicious, however, that this may be related to pressure from an-ill fitting shoe. The patient has a long-standing history of chronic venous disease. The patient suffers from chronic venous insufficiency, varicose veins with inflammation and ulceration, venous hypertension with inflammation, postphlebitic syndrome with inflammation, etc. He has been treated for a venous ulceration on the right lateral malleolus, which has healed. He has suffered from venous disease for many years. In April 2013 he underwent endovenous laser ablation of the right great saphenous vein, the right small saphenous vein, and the right accessory saphenous vein. A subsequent venous duplex examination two months later revealed successful ablation of the right great saphenous vein, small saphenous vein, and accessory saphenous vein. The patient subsequently presented with ulcerations which occurred on the right medial malleolus and on the dorsum of the right second toe. The ulceration near the right medial malleolus appeared to be related to the patient's chronic venous disease. The ulceration on the right second toe appeared to be related to pressure from poorly-fitted work boots. The ulceration on the right second toe appeared pressure related, stage II, and likely due to swelling of the foot while wearing work boots. The patient's wound subsequently healed, the patient was discharged for as needed follow-up. Patient has been wearing graduated compression stockings of 20-30 mmHg on a daily basis. 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 The patient had also been instructed to avoid idle standing and sitting. However, it is known that the patient is relatively noncompliant with recommended treatment measures. 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 A noninvasive lower extremity arterial study performed in 2012 was normal. More recently, and noninvasive lower extremity arterial study on April 07, 2018, was also normal. 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 Allergies/Adverse Reactions: Allergies No Known Allergies Allergy (Verified 08/28/17 10:21) Home Medications: Ambulatory Orders Medication Instructions Recorded Carbidopa/Levodopa 50/200 [Sinemet 1 tablet PO BIDAC 08/28/17 CR] Warfarin Sodium [Coumadin] 9 mg PO DAILY 08/28/17 - Family History Maternal No pertinent history, - - Patient's father at the age of 92 of old age. Patient's mother at the age of 76 with a history of myocardial infarction. Smoking Status: Never smoker Tobacco Use: Non-smoker Review of Systems Constitutional: Denies: Chills, Fever, Weight Change Eyes: Denies: Pain, Vision Change HEENT: Denies: Difficulty Hearing, Difficulty Swallowing, Sinus Congestion Cardiovascular: Denies: Chest Pain, Palpitations Respiratory: Denies: Cough, Shortness of Breath Gastrointestinal: Denies: Diarrhea, Nausea, Vomiting Genitourinary: Denies: Dysuria, Hematuria Endocrine: Denies: Heat/ Cold Intolerance, Polydipsia, Polyuria Hematologic/ Lymphatic: Denies: Easy Bruising, Easy Bleeding - Physical Exam Vital Signs Temp Pulse Resp BP 97.5 F L 61 18 117/73 04/28/18 10:38 04/28/18 10:38 04/28/18 10:38 04/28/18 10:38 General: Alert, Oriented x3, Cooperative, No apparent distress, Well developed, Well nourished HEENT: Atraumatic, PERRLA, EOMI, Normocephalic Oral: Moist Mucosa Neck: No JVD Lungs: Normal air movement Abdomen: Non-Distended Extremities: No clubbing, No cyanosis, No Calf Tenderness, - - Mild swelling and edema persist in the right lower extremity. The ulceration on the dorsum of the right great toe is now nearly healed. The ulceration on the dorsum of the right second toe persists, but is smaller in size. The base of the ulcerations are generally pink and healthy in appearance. The erythema which was once noted several weeks ago is now resolved. There is no obvious sign of infection or cellulitis. Ulcer dimensions are documented elsewhere. There is a small amount of bioburden. Skin: No rashes Wound Measurements and Assessment WC - Nurse 1 - General Ulcer Measurement Start: 04/28/18 10:37 Freq: Status: Active Protocol: Activity Type Activity Date Activity User E-Sign Co-Sign Detail Recorded Client Recorded Date Recorded By Document 04/28/18 10:38 [id number] 04/28/18 10:48 04/28/18 10:38 Wound Center Nurse 1 [Ulcer Assessment] 13-right 2nd toe cluster -Current Size (cm) - Length 2.2 -Current Size (cm) - Width 1.4 -Current Size (cm) - Depth 0.2 -Total Square Cm 3.08 -Photo Taken No -Exudate Amt Small (1-33%) -Exudate Type Serosanguineous -Wound Margin Thickened -Granulation Amt Medium (34-66%) -Granulation Quality [place] -Necrosis Amt Medium (34-66%) -Necrotic Tissue Type Adherent Slough -Structure Exposed Fat Layer Exposed -Texture (Tara-wound Skin Appearance) Localized Edema Scarring -Moisture (Tara-wound Skin Appearance No Abnormality ) -Color (Tara-wound Skin Appearance) Erythema Rubor -Temperature (Tara-wound Skin No Abnormality Appearance) (Pt Warm) -Ulcer Cleansing Rinsed/ Irrigated with Saline -Foul Odor after Cleansing No -Anesthetic Used 4% Lidocaine Solution 12- right hallux crease -Current Size (cm) - Length 1.5 -Current Size (cm) - Width 0.1 -Current Size (cm) - Depth 0.1 -Total Square Cm 0.15 -Photo Taken No -Exudate Amt Small (1-33%) -Exudate Type Serosanguineous -Wound Margin Distinct, Outline Attached -Granulation Amt Large (67-100%) -Granulation Quality [place] -Necrosis Amt Small (1-33%) -Necrotic Tissue Type Adherent Slough -Structure Exposed N/A -Texture (Tara-wound Skin Appearance) Scarring -Moisture (Tara-wound Skin Appearance No Abnormality ) -Color (Tara-wound Skin Appearance) Erythema Rubor -Temperature (Tara-wound Skin No Abnormality Appearance) (Pt Warm) -Ulcer Cleansing Rinsed/ Irrigated with Saline -Anesthetic Used 4% Lidocaine Solution [Edema Assessment] -Right Calf (cm) 38 -Right Ankle (cm) 23 WC - Nurse 2 - General Ulcer CM Notes Start: 04/28/18 10:37 Freq: Status: Active Protocol: Activity Type Activity Date Activity User E-Sign Co-Sign Detail Recorded Client Recorded Date Recorded By Document 04/28/18 11:36 [email or web address] [id number] 04/28/18 11:46 SANJUANITA 04/28/18 11:36 Wound Center Nurse 2 [Procedure/Treatment] 13-right 2nd toe cluster -Time 11:39 -Correct Patient Yes -Correct Side, Site, Position Yes -Correct Procedure Yes -Procedure Performed Yes -Type of Procedure Debridement -Clinical Debridement Subcutaneous -Post Debridement Size (cm) - Length 2.4 -Post Debridement Size (cm) - Width 1.1 -Post Debridement Size (cm) - Depth 0.2 -Total Square Cm 2.64 -Wound/Ulcer Outcome Not Healed -Ulcer Cleansing Rinsed/ Irrigated with Saline -Foul Odor after Cleansing No -Bioengineered Tissue No -Bleeding Controlled with NA -Treatment Response Procedure Tolerated Well 12- right hallux crease -Time 11:39 -Correct Patient Yes -Correct Side, Site, Position Yes -Correct Procedure Yes -Procedure Performed Yes -Type of Procedure Debridement -Clinical Debridement Subcutaneous -Post Debridement Size (cm) - Length 0.3 -Post Debridement Size (cm) - Width 1.7 -Post Debridement Size (cm) - Depth 0.1 -Total Square Cm 0.51 -Wound/Ulcer Outcome Not Healed -Ulcer Cleansing Rinsed/ Irrigated with Saline -Foul Odor after Cleansing No -Bioengineered Tissue No -Bleeding Controlled with NA -Treatment Response Procedure Tolerated Well [See Physician Procedure note for Specifics] Pain Scale: 0-10 Numeric [Pain] -Is Patient Pain Free? Yes Neurological: Cranial nerves II-XII grossly intact, Neuro grossly intact Psych/Mental Status: Normal Affect, Appropriate, Alert and oriented to time, place, person, mood and affect Debridement Note Post-Debridement Measurements/Treatment WC - Nurse 2 - General Ulcer CM Notes Start: 04/28/18 10:37 Freq: Status: Active Protocol: Activity Type Activity Date Activity User E-Sign Co-Sign Detail Recorded Client Recorded Date Recorded By Document 04/28/18 11:36 [email or web address] [id number] 04/28/18 11:46 SANJUANITA 04/28/18 11:36 Wound Center Nurse 2 13-right 2nd toe cluster -Time 11:39 -Correct Patient Yes -Correct Side, Site, Position Yes -Correct Procedure Yes -Procedure Performed Yes -Type of Procedure Debridement -Clinical Debridement Subcutaneous -Post Debridement Size (cm) - Length 2.4 -Post Debridement Size (cm) - Width 1.1 -Post Debridement Size (cm) - Depth 0.2 -Total Square Cm 2.64 -Wound/Ulcer Outcome Not Healed -Ulcer Cleansing Rinsed/ Irrigated with Saline -Foul Odor after Cleansing No -Bioengineered Tissue No -Bleeding Controlled with NA -Treatment Response Procedure Tolerated Well 12- right hallux crease -Time 11:39 -Correct Patient Yes -Correct Side, Site, Position Yes -Correct Procedure Yes -Procedure Performed Yes -Type of Procedure Debridement -Clinical Debridement Subcutaneous -Post Debridement Size (cm) - Length 0.3 -Post Debridement Size (cm) - Width 1.7 -Post Debridement Size (cm) - Depth 0.1 -Total Square Cm 0.51 -Wound/Ulcer Outcome Not Healed -Ulcer Cleansing Rinsed/ Irrigated with Saline -Foul Odor after Cleansing No -Bioengineered Tissue No -Bleeding Controlled with NA -Treatment Response Procedure Tolerated Well Pain Scale: 0-10 Numeric Is Patient Pain Free? Yes Laterality: Right - Great and second toe, dorsum Type of Debridement: Excisional debridement Anesthesia Used: 4% Lidocaine Solution Depth: Down to and including healthy tissue, in the subcutaneous layer Percentage of wound debrided: 100 Instrument Used: 3mm curette Severity: Fat Layer Exposed Amount of bleeding with debridement: Mild Bleeding Controlled with: Compression and gauze Patient tolerated procedure well Assessment/Plan Active Problems Swelling of right lower extremity (Chronic) Edema leg (Chronic) Ulcer of great toe (Chronic) Assessment: This is a 68-year-old male with a long-standing history of chronic venous disease, as described above. He recently presented with an ulceration on the dorsum of the right great toe. This has extended to involve the adjacent right second toe dorsum. This appears to be pressure related, and likely due to ill fitted footwear. It is suspected that the patient's shoes may be properly fitted, but with swelling which occurs at the end of each day, the shoes may become too tight, causing pressure phenomenon resulting in an ulceration. He claims to have been wearing his graduated compression stockings on a daily basis. He makes an effort to elevate his lower extremities frequently. He sleeps on a flat surface at night. 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 However, given the patient's history, and his recent presentation, it appears as though there is a level of noncompliance which is contributing to the patient's presenting manifestations. He continues to wear his work boots, despite admonitions to do otherwise. Although it does appear as though the patient has recently obtained alternative footwear of a larger size, complying with recommendations for offloading of the critical areas on the dorsum of the toes of the right foot. The swelling, edema, erythema noted in the distal right lower extremity and foot several weeks ago has now resolved. Patient has completed his prescription for doxycycline. Plan: Debridement done as documented above. Procedure was well-tolerated. We will continue the use of [place], which will be applied either daily or every other day. Patient is to continue elevating his lower extremities as much as possible. He is to avoid idle sitting and standing. Activity has been encouraged. He has been advised to continue wearing graduated compression stockings as previously prescribed. Appropriate footwear has also been recommended, to avoid pressure phenomenon. Patient will return in 1 week for reevaluation. The patient is not a smoker. Influenza vaccine was not administered today. The patient weighs 170 pounds. He stands 6 feet 0 inches tall. His BMI is 23.1, which is normal.
[2018-05-05 10:32] VITALS: BP 121/72; PULSE 69; RESP 20; TEMP 37.2
--- NOTE | 2018-05-05 11:43 | PCM.WC.HP ---
(1) Swelling of right lower extremity Status: Chronic Current Visit: Yes Code(s): M79.89 - Other specified soft tissue disorders (2) Edema leg Status: Chronic Current Visit: Yes Code(s): R60.0 - Localized edema (3) Ulcer of great toe Status: Chronic Current Visit: Yes Qualifiers: Laterality: right Non-pressure ulcer stage: with fat layer exposed Qualified Code(s): L97.512 - Non-pressure chronic ulcer of other part of right foot with fat layer exposed Code(s): L97.509 - Non-pressure chronic ulcer of other part of unspecified foot with unspecified severity (4) Parkinsons disease Status: Chronic Current Visit: No Code(s): G20 - Parkinson's disease (5) Venous hypertension, chronic, with inflammation Status: Chronic Current Visit: No Qualifiers: Laterality: bilateral Code(s): I87.329 - Chronic venous hypertension (idiopathic) with inflammation of unspecified lower extremity (6) Varicose veins with inflammation Status: Chronic Current Visit: No Code(s): I83.10 - Varicose veins of unspecified lower extremity with inflammation (7) Venous hypertension, chronic, with ulcer and inflammation Status: Chronic Current Visit: No Qualifiers: Laterality: bilateral Qualified Code(s): I87.333 - Chronic venous hypertension (idiopathic) with ulcer and inflammation of bilateral lower extremity; L97.919 - Non-pressure chronic ulcer of unspecified part of right lower leg with unspecified severity; L97.929 - Non-pressure chronic ulcer of unspecified part of left lower leg with unspecified severity Code(s): I87.339 - Chronic venous hypertension (idiopathic) with ulcer and inflammation of unspecified lower extremity (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 Current Visit: No Code(s): I87.091 - Postthrombotic syndrome with other complications of right lower extremity (9) Varicose veins with ulcer and inflammation Status: Chronic Current Visit: No Code(s): I83.209 - Varicose veins of unspecified lower extremity with both ulcer of unspecified site and inflammation; L97.909 - Non-pressure chronic ulcer of unspecified part of unspecified lower leg with unspecified severity (10) Chronic venous insufficiency Status: Chronic Current Visit: No (11) History of ulcer of lower extremity Status: Chronic Current Visit: No Code(s): Z87.2 - Personal history of diseases of the skin and subcutaneous tissue (12) Postphlebitic syndrome with inflammation Status: Chronic Current Visit: No Code(s): I87.029 - Postthrombotic syndrome with inflammation of unspecified lower extremity (13) Ulcer, pressure Status: Chronic Current Visit: Yes Qualifiers: Pressure injury location: toe Pressure injury stage: stage 2 Laterality: right Qualified Code(s): L89.892 - Pressure ulcer of other site, stage 2 Code(s): L89.90 - Pressure ulcer of unspecified site, unspecified stage History of Present Illness Date of Service: 05/05/18 Chief Complaint: Ulceration of the right great and second toe History of Wound: This is a 68-year-old male who presented with a one-month history of ulceration on the dorsum of his right great toe. The patient was not sure as to the etiology. He is suspicious, however, that this may be related to pressure from an-ill fitting shoe. The patient has a long-standing history of chronic venous disease. The patient suffers from chronic venous insufficiency, varicose veins with inflammation and ulceration, venous hypertension with inflammation, postphlebitic syndrome with inflammation, etc. He has been treated for a venous ulceration on the right lateral malleolus, which has healed. He has suffered from venous disease for many years. In April 2013 he underwent endovenous laser ablation of the right great saphenous vein, the right small saphenous vein, and the right accessory saphenous vein. A subsequent venous duplex examination two months later revealed successful ablation of the right great saphenous vein, small saphenous vein, and accessory saphenous vein. The patient subsequently presented with ulcerations which occurred on the right medial malleolus and on the dorsum of the right second toe. The ulceration near the right medial malleolus appeared to be related to the patient's chronic venous disease. The ulceration on the right second toe appeared to be related to pressure from poorly-fitted work boots. The ulceration on the right second toe appeared pressure related, stage II, and likely due to swelling of the foot while wearing work boots. The patient's wound subsequently healed, the patient was discharged for as needed follow-up. Patient has been wearing graduated compression stockings of 20-30 mmHg on a daily basis. 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 The patient had also been instructed to avoid idle standing and sitting. However, it is known that the patient is relatively noncompliant with recommended treatment measures. 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 A noninvasive lower extremity arterial study performed in 2012 was normal. More recently, and noninvasive lower extremity arterial study on April 07, 2018, was also normal. 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 Allergies/Adverse Reactions: Allergies No Known Allergies Allergy (Verified 08/28/17 10:21) Home Medications: Ambulatory Orders Medication Instructions Recorded Carbidopa/Levodopa 50/200 [Sinemet 1 tablet PO BIDAC 08/28/17 CR] Warfarin Sodium [Coumadin] 9 mg PO DAILY 08/28/17 - Family History Maternal No pertinent history, - - Patient's father at the age of 92 of old age. Patient's mother at the age of 76 with a history of myocardial infarction. Smoking Status: Never smoker Tobacco Use: Non-smoker Review of Systems Constitutional: Denies: Chills, Fever, Weight Change Eyes: Denies: Pain, Vision Change HEENT: Denies: Difficulty Hearing, Difficulty Swallowing, Sinus Congestion Cardiovascular: Denies: Chest Pain, Palpitations Respiratory: Denies: Cough, Shortness of Breath Gastrointestinal: Denies: Diarrhea, Nausea, Vomiting Genitourinary: Denies: Dysuria, Hematuria Endocrine: Denies: Heat/ Cold Intolerance, Polydipsia, Polyuria Hematologic/ Lymphatic: Denies: Easy Bruising, Easy Bleeding - Physical Exam Vital Signs Temp Pulse Resp BP 98.9 F 69 20 H 121/72 H 05/05/18 10:32 05/05/18 10:32 05/05/18 10:32 05/05/18 10:32 General: Alert, Oriented x3, Cooperative, No apparent distress, Well developed, Well nourished HEENT: Atraumatic, PERRLA, EOMI, Normocephalic Oral: Moist Mucosa Neck: No JVD Lungs: Normal air movement Abdomen: Non-Distended Extremities: No clubbing, No cyanosis, No Calf Tenderness, - - The swelling and edema in the lower extremities appears to be reasonably well controlled. The ulceration on the dorsum of the right great toe appears to be essentially healed. The ulceration on the dorsum of the right second toe persists, with little change in appearance. There is no sign of infection or cellulitis. Dimensions are documented elsewhere. There is a moderate amount of bioburden. Wound Measurements and Assessment WC - Nurse 1 - General Ulcer Measurement Start: 04/28/18 10:37 Freq: Status: Active Protocol: Activity Type Activity Date Activity User E-Sign Co-Sign Detail Recorded Client Recorded Date Recorded By Document 05/05/18 10:32 DL [id number] 05/05/18 10:42 DL 05/05/18 10:32 Wound Center Nurse 1 [Ulcer Assessment] 13-right 2nd toe cluster -Current Size (cm) - Length 0.8 -Current Size (cm) - Width 1 -Current Size (cm) - Depth 0.2 -Total Square Cm 0.8 -Photo Taken No -Exudate Amt Small (1-33%) -Exudate Type Serosanguineous -Wound Margin Thickened -Granulation Amt Large (67-100%) -Granulation Quality Zoar -Necrosis Amt Small (1-33%) -Necrotic Tissue Type Adherent Slough -Structure Exposed N/A -Texture (Tara-wound Skin Appearance) Scarring -Moisture (Tara-wound Skin Appearance Maceration ) -Color (Tara-wound Skin Appearance) Erythema -Temperature (Taar-wound Skin No Abnormality Appearance) (Pt Warm) -Ulcer Cleansing Rinsed/ Irrigated with Saline -Foul Odor after Cleansing No -Anesthetic Used 4% Lidocaine Solution 12- right hallux crease -Current Size (cm) - Length 0.2 -Current Size (cm) - Width 1.3 -Current Size (cm) - Depth 0.1 -Total Square Cm 0.26 -Photo Taken No -Exudate Amt Small (1-33%) -Exudate Type Serosanguineous -Wound Margin Distinct, Outline Attached -Granulation Amt Medium (34-66%) -Granulation Quality Zoar -Necrosis Amt Medium (34-66%) -Necrotic Tissue Type Adherent Slough -Structure Exposed N/A -Texture (Tara-wound Skin Appearance) Scarring -Moisture (Tara-wound Skin Appearance Maceration ) -Color (Tara-wound Skin Appearance) Erythema -Temperature (Tara-wound Skin No Abnormality Appearance) (Pt Warm) -Ulcer Cleansing Rinsed/ Irrigated with Saline -Foul Odor after Cleansing No -Anesthetic Used 4% Lidocaine Solution [Edema Assessment] -Right Calf (cm) 39 -Right Ankle (cm) 22.5 WC - Nurse 2 - General Ulcer CM Notes Start: 04/28/18 10:37 Freq: Status: Active Protocol: Activity Type Activity Date Activity User E-Sign Co-Sign Detail Recorded Client Recorded Date Recorded By Document 05/05/18 11:31 [email or web address] 05/05/18 11:38 [email or web address] 05/05/18 11:31 Wound Center Nurse 2 [Procedure/Treatment] 13-right 2nd toe cluster -Time 11:31 -Correct Patient Yes -Correct Side, Site, Position Yes -Correct Procedure Yes -Procedure Performed Yes -Type of Procedure Debridement -Clinical Debridement Subcutaneous -Post Debridement Size (cm) - Length 1.1 -Post Debridement Size (cm) - Width 1.0 -Post Debridement Size (cm) - Depth 0.1 -Total Square Cm 1.10 -Wound/Ulcer Outcome Not Healed -Ulcer Cleansing Rinsed/ Irrigated with Saline -Foul Odor after Cleansing No -Bioengineered Tissue No -Bleeding Controlled with NA -Treatment Response Procedure Tolerated Well 12- right hallux crease -Time 11:31 -Correct Patient Yes -Correct Side, Site, Position Yes -Correct Procedure Yes -Procedure Performed No -Post Debridement Size (cm) - Length 0.1 -Post Debridement Size (cm) - Width 0.1 -Post Debridement Size (cm) - Depth 0.1 -Total Square Cm 0.01 -Wound/Ulcer Outcome Not Healed -Ulcer Cleansing Rinsed/ Irrigated with Saline -Foul Odor after Cleansing No -Bioengineered Tissue No -Bleeding Controlled with NA -Treatment Response Procedure Tolerated Well [See Physician Procedure note for Specifics] Pain Scale: 0-10 Numeric [Pain] -Is Patient Pain Free? Yes Neurological: Cranial nerves II-XII grossly intact, Neuro grossly intact Psych/Mental Status: Normal Affect, Appropriate, Alert and oriented to time, place, person, mood and affect Debridement Note Post-Debridement Measurements/Treatment WC - Nurse 2 - General Ulcer CM Notes Start: 04/28/18 10:37 Freq: Status: Active Protocol: Activity Type Activity Date Activity User E-Sign Co-Sign Detail Recorded Client Recorded Date Recorded By Document 04/28/18 11:36 [id number] 04/28/18 11:46 JS Document 05/05/18 11:31 [id number] 05/05/18 11:38 JS 04/28/18 05/05/18 11:36 11:31 Wound Center Nurse 2 13-right 2nd toe cluster -Time 11:39 11:31 -Correct Patient Yes Yes -Correct Side, Site, Position Yes Yes -Correct Procedure Yes Yes -Procedure Performed Yes Yes -Type of Procedure Debridement Debridement -Clinical Debridement Subcutaneous Subcutaneous -Post Debridement Size (cm) - Length 2.4 1.1 -Post Debridement Size (cm) - Width 1.1 1.0 -Post Debridement Size (cm) - Depth 0.2 0.1 -Total Square Cm 2.64 1.10 -Wound/Ulcer Outcome Not Healed Not Healed -Ulcer Cleansing Rinsed/ Rinsed/ Irrigated with Irrigated with Saline Saline -Foul Odor after Cleansing No No -Bioengineered Tissue No No -Bleeding Controlled with NA NA -Treatment Response Procedure Procedure Tolerated Well Tolerated Well 12- right hallux crease -Time 11:39 11:31 -Correct Patient Yes Yes -Correct Side, Site, Position Yes Yes -Correct Procedure Yes Yes -Procedure Performed Yes No -Type of Procedure Debridement -Clinical Debridement Subcutaneous -Post Debridement Size (cm) - Length 0.3 0.1 -Post Debridement Size (cm) - Width 1.7 0.1 -Post Debridement Size (cm) - Depth 0.1 0.1 -Total Square Cm 0.51 0.01 -Wound/Ulcer Outcome Not Healed Not Healed -Ulcer Cleansing Rinsed/ Rinsed/ Irrigated with Irrigated with Saline Saline -Foul Odor after Cleansing No No -Bioengineered Tissue No No -Bleeding Controlled with NA NA -Treatment Response Procedure Procedure Tolerated Well Tolerated Well Pain Scale: 0-10 Numeric Is Patient Pain Free? Yes Yes Laterality: Right - Dorsal second toe Type of Debridement: Excisional debridement Anesthesia Used: 4% Lidocaine Solution Depth: Down to and including healthy tissue, in the subcutaneous layer Percentage of wound debrided: 100 Instrument Used: 5mm curette Severity: Fat Layer Exposed Amount of bleeding with debridement: Mild Bleeding Controlled with: Compression and gauze Patient tolerated procedure well Assessment/Plan Active Problems Swelling of right lower extremity (Chronic) Edema leg (Chronic) Ulcer of great toe (Chronic) Ulcer, pressure (Chronic) Assessment: This is a 68-year-old male with a long-standing history of chronic venous disease, as described above. He recently presented with an ulceration on the dorsum of the right great toe. This has extended to involve the adjacent right second toe dorsum. This appears to be pressure related, and likely due to ill fitted footwear. The ulceration on the dorsum of the right great toe appears to be essentially healed. It is suspected that the patient's shoes may be properly fitted, but with swelling which occurs at the end of each day, the shoes may become too tight, causing pressure phenomenon resulting in an ulceration. He claims to have been wearing his graduated compression stockings on a daily basis. He makes an effort to elevate his lower extremities frequently. He sleeps on a flat surface at night. 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 However, given the patient's history, and his recent presentation, it appears as though there is a level of noncompliance which is contributing to the patient's presenting manifestations. He continues to wear his work boots, despite admonitions to do otherwise. Although it does appear as though the patient has recently obtained alternative footwear of a larger size, complying with recommendations for offloading of the critical areas on the dorsum of the toes of the right foot. The swelling, edema, erythema noted in the distal right lower extremity and foot several weeks ago has now resolved. Patient has completed his prescription for doxycycline. Plan: Debridement done as documented above. Procedure was well-tolerated. We will continue the use of Elma, which will be applied either daily or every other day. Patient is to continue elevating his lower extremities as much as possible. He is to avoid idle sitting and standing. Activity has been encouraged. He has been advised to continue wearing graduated compression stockings as previously prescribed. Appropriate footwear has also been recommended, to avoid pressure phenomenon. Patient will return in 1 week for reevaluation. The patient is not a smoker. Influenza vaccine was not administered today. The patient weighs 170 pounds. He stands 6 feet 0 inches tall. His BMI is 23.1, which is normal.
[2018-05-12 10:42] VITALS: BP 126/77; PULSE 59; RESP 18; TEMP 36.7
--- NOTE | 2018-05-12 11:38 | PCM.WC.HP ---
(1) Swelling of right lower extremity Status: Chronic Current Visit: Yes Code(s): M79.89 - Other specified soft tissue disorders (2) Edema leg Status: Chronic Current Visit: Yes Code(s): R60.0 - Localized edema (3) Ulcer of great toe Status: Chronic Current Visit: Yes Qualifiers: Laterality: right Non-pressure ulcer stage: with fat layer exposed Qualified Code(s): L97.512 - Non-pressure chronic ulcer of other part of right foot with fat layer exposed Code(s): L97.509 - Non-pressure chronic ulcer of other part of unspecified foot with unspecified severity (4) Parkinsons disease Status: Chronic Current Visit: No Code(s): G20 - Parkinson's disease (5) Venous hypertension, chronic, with inflammation Status: Chronic Current Visit: No Qualifiers: Laterality: bilateral Code(s): I87.329 - Chronic venous hypertension (idiopathic) with inflammation of unspecified lower extremity (6) Varicose veins with inflammation Status: Chronic Current Visit: No Code(s): I83.10 - Varicose veins of unspecified lower extremity with inflammation (7) Venous hypertension, chronic, with ulcer and inflammation Status: Chronic Current Visit: No Qualifiers: Laterality: bilateral Qualified Code(s): I87.333 - Chronic venous hypertension (idiopathic) with ulcer and inflammation of bilateral lower extremity; L97.919 - Non-pressure chronic ulcer of unspecified part of right lower leg with unspecified severity; L97.929 - Non-pressure chronic ulcer of unspecified part of left lower leg with unspecified severity Code(s): I87.339 - Chronic venous hypertension (idiopathic) with ulcer and inflammation of unspecified lower extremity (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 Current Visit: No Code(s): I87.091 - Postthrombotic syndrome with other complications of right lower extremity (9) Varicose veins with ulcer and inflammation Status: Chronic Current Visit: No Code(s): I83.209 - Varicose veins of unspecified lower extremity with both ulcer of unspecified site and inflammation; L97.909 - Non-pressure chronic ulcer of unspecified part of unspecified lower leg with unspecified severity (10) Chronic venous insufficiency Status: Chronic Current Visit: No (11) History of ulcer of lower extremity Status: Chronic Current Visit: No Code(s): Z87.2 - Personal history of diseases of the skin and subcutaneous tissue (12) Postphlebitic syndrome with inflammation Status: Chronic Current Visit: No Code(s): I87.029 - Postthrombotic syndrome with inflammation of unspecified lower extremity (13) Ulcer, pressure Status: Chronic Current Visit: Yes Qualifiers: Pressure injury location: toe Pressure injury stage: stage 2 Laterality: right Qualified Code(s): L89.892 - Pressure ulcer of other site, stage 2 Code(s): L89.90 - Pressure ulcer of unspecified site, unspecified stage History of Present Illness Date of Service: 05/12/18 Chief Complaint: Ulceration of the right great and second toe History of Wound: This is a 68-year-old male who presented with a one-month history of ulceration on the dorsum of his right great toe. The patient was not sure as to the etiology. He is suspicious, however, that this may be related to pressure from an-ill fitting shoe. The patient has a long-standing history of chronic venous disease. The patient suffers from chronic venous insufficiency, varicose veins with inflammation and ulceration, venous hypertension with inflammation, postphlebitic syndrome with inflammation, etc. He has been treated for a venous ulceration on the right lateral malleolus, which has healed. He has suffered from venous disease for many years. In April 2013 he underwent endovenous laser ablation of the right great saphenous vein, the right small saphenous vein, and the right accessory saphenous vein. A subsequent venous duplex examination two months later revealed successful ablation of the right great saphenous vein, small saphenous vein, and accessory saphenous vein. The patient subsequently presented with ulcerations which occurred on the right medial malleolus and on the dorsum of the right second toe. The ulceration near the right medial malleolus appeared to be related to the patient's chronic venous disease. The ulceration on the right second toe appeared to be related to pressure from poorly-fitted work boots. The ulceration on the right second toe appeared pressure related, stage II, and likely due to swelling of the foot while wearing work boots. The patient's wound subsequently healed, the patient was discharged for as needed follow-up. Patient has been wearing graduated compression stockings of 20-30 mmHg on a daily basis. 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 The patient had also been instructed to avoid idle standing and sitting. However, it is known that the patient is relatively noncompliant with recommended treatment measures. 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 A noninvasive lower extremity arterial study performed in 2012 was normal. More recently, and noninvasive lower extremity arterial study on April 07, 2018, was also normal. 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 Allergies/Adverse Reactions: Allergies No Known Allergies Allergy (Verified 08/28/17 10:21) Home Medications: Ambulatory Orders Medication Instructions Recorded Carbidopa/Levodopa 50/200 [Sinemet 1 tablet PO BIDAC 08/28/17 CR] Warfarin Sodium [Coumadin] 9 mg PO DAILY 08/28/17 - Family History Maternal No pertinent history, - - Patient's father at the age of 92 of old age. Patient's mother at the age of 76 with a history of myocardial infarction. Smoking Status: Never smoker Tobacco Use: Non-smoker Review of Systems Constitutional: Denies: Chills, Fever, Weight Change Eyes: Denies: Pain, Vision Change HEENT: Denies: Difficulty Hearing, Difficulty Swallowing, Sinus Congestion Cardiovascular: Denies: Chest Pain, Palpitations Respiratory: Denies: Cough, Shortness of Breath Gastrointestinal: Denies: Diarrhea, Nausea, Vomiting Genitourinary: Denies: Dysuria, Hematuria Endocrine: Denies: Heat/ Cold Intolerance, Polydipsia, Polyuria Hematologic/ Lymphatic: Denies: Easy Bruising, Easy Bleeding - Physical Exam Vital Signs Temp Pulse Resp BP 98.0 F 59 L 18 126/77 H 05/12/18 10:42 05/12/18 10:42 05/12/18 10:42 05/12/18 10:42 General: Alert, Oriented x3, Cooperative, No apparent distress, Well developed, Well nourished HEENT: Atraumatic, PERRLA, EOMI, Normocephalic Oral: Moist Mucosa Neck: No JVD Lungs: Normal air movement Abdomen: Non-Distended Extremities: No clubbing, No cyanosis, No Calf Tenderness, - - Swelling and edema in the lower extremities is reasonably well controlled, and is only minimal. The right great toe is swollen, however. The ulceration on the dorsum of the right great toe shows significant improvement. The medial aspect of the ulceration is epithelialized. The lateral portion remains open, though nearly healed. The ulceration on the dorsum of the right second toe is little changed in appearance. It does appear somewhat desiccated, however. There is no sign of infection or cellulitis. Dimensions are documented elsewhere. Wound Measurements and Assessment WC - Nurse 1 - General Ulcer Measurement Start: 04/28/18 10:37 Freq: Status: Active Protocol: Activity Type Activity Date Activity User E-Sign Co-Sign Detail Recorded Client Recorded Date Recorded By Document 05/12/18 10:42 [id number] 05/12/18 10:45 05/12/18 10:42 Wound Center Nurse 1 [Ulcer Assessment] 13-right 2nd toe cluster -Combined with other wound No -Current Size (cm) - Length 1.0 -Current Size (cm) - Width 0.9 -Current Size (cm) - Depth 0.2 -Total Square Cm 0.90 -Photo Taken No -Epithelialization Small 1-33% -Tunneling No -Undermining/Tunneling No -Circular Undermining No -Classification - Thickness Full Thickness without Exposed Support Structure -Exudate Amt Small (1-33%) -Exudate Type Serosanguineous -Wound Margin Distinct, Outline Attached -Granulation Amt Medium (34-66%) -Granulation Quality Pale [place] -Slough/Fibrin Yes -Necrosis Amt Medium (34-66%) -Necrotic Tissue Type Adherent Slough -Structure Exposed Fascia Fat Layer Exposed -Texture (Tara-wound Skin Appearance) Assessed Scarring -Moisture (Tara-wound Skin Appearance No Abnormality ) Assessed -Color (Tara-wound Skin Appearance) No Abnormality Assessed -Temperature (Tara-wound Skin No Abnormality Appearance) (Pt Warm) -Tenderness on Palpation (Tara-wound No Skin Appearance) -Ulcer Cleansing Rinsed/ Irrigated with Saline -Foul Odor after Cleansing No -Anesthetic Used 4% Lidocaine Solution 12- right hallux crease -Combined with other wound No -Current Size (cm) - Length 0.1 -Current Size (cm) - Width 0.8 -Current Size (cm) - Depth 0.1 -Total Square Cm 0.08 -Photo Taken No -Epithelialization Small 1-33% -Tunneling No -Undermining/Tunneling No -Circular Undermining No -Classification - Thickness Full Thickness without Exposed Support Structure -Exudate Amt Small (1-33%) -Exudate Type Serosanguineous -Wound Margin Distinct, Outline Attached -Granulation Amt Medium (34-66%) -Granulation Quality [place] -Slough/Fibrin Yes -Necrosis Amt Medium (34-66%) -Necrotic Tissue Type Adherent Slough -Structure Exposed Fascia Fat Layer Exposed -Texture (Tara-wound Skin Appearance) Assessed Scarring -Moisture (Tara-wound Skin Appearance No Abnormality ) Assessed -Color (Tara-wound Skin Appearance) No Abnormality Assessed -Temperature (Tara-wound Skin No Abnormality Appearance) (Pt Warm) -Tenderness on Palpation (Tara-wound No Skin Appearance) -Ulcer Cleansing Rinsed/ Irrigated with Saline -Foul Odor after Cleansing No -Anesthetic Used 4% Lidocaine Solution [Edema Assessment] -Lower Limb Edema Present Yes -Right Calf (cm) 39.5 -Right Ankle (cm) 25.5 Neurological: Cranial nerves II-XII grossly intact, Neuro grossly intact Psych/Mental Status: Normal Affect, Appropriate, Alert and oriented to time, place, person, mood and affect Debridement Note Post-Debridement Measurements/Treatment WC - Nurse 2 - General Ulcer CM Notes Start: 04/28/18 10:37 Freq: Status: Active Protocol: Activity Type Activity Date Activity User E-Sign Co-Sign Detail Recorded Client Recorded Date Recorded By Document 04/28/18 11:36 [email or web address] [id number] 04/28/18 11:46 JS Document 05/05/18 11:31 JS [id number] 05/05/18 11:38 JS 04/28/18 05/05/18 11:36 11:31 Wound Center Nurse 2 13-right 2nd toe cluster -Time 11:39 11:31 -Correct Patient Yes Yes -Correct Side, Site, Position Yes Yes -Correct Procedure Yes Yes -Procedure Performed Yes Yes -Type of Procedure Debridement Debridement -Clinical Debridement Subcutaneous Subcutaneous -Post Debridement Size (cm) - Length 2.4 1.1 -Post Debridement Size (cm) - Width 1.1 1.0 -Post Debridement Size (cm) - Depth 0.2 0.1 -Total Square Cm 2.64 1.10 -Wound/Ulcer Outcome Not Healed Not Healed -Ulcer Cleansing Rinsed/ Rinsed/ Irrigated with Irrigated with Saline Saline -Foul Odor after Cleansing No No -Bioengineered Tissue No No -Bleeding Controlled with NA NA -Treatment Response Procedure Procedure Tolerated Well Tolerated Well 12- right hallux crease -Time 11:39 11:31 -Correct Patient Yes Yes -Correct Side, Site, Position Yes Yes -Correct Procedure Yes Yes -Procedure Performed Yes No -Type of Procedure Debridement -Clinical Debridement Subcutaneous -Post Debridement Size (cm) - Length 0.3 0.1 -Post Debridement Size (cm) - Width 1.7 0.1 -Post Debridement Size (cm) - Depth 0.1 0.1 -Total Square Cm 0.51 0.01 -Wound/Ulcer Outcome Not Healed Not Healed -Ulcer Cleansing Rinsed/ Rinsed/ Irrigated with Irrigated with Saline Saline -Foul Odor after Cleansing No No -Bioengineered Tissue No No -Bleeding Controlled with NA NA -Treatment Response Procedure Procedure Tolerated Well Tolerated Well Pain Scale: 0-10 Numeric Is Patient Pain Free? Yes Yes Laterality: Right - Great toe dorsum Type of Debridement: Excisional debridement Anesthesia Used: 4% Lidocaine Solution Depth: Down to and including healthy tissue, in the subcutaneous layer Percentage of wound debrided: 100 Instrument Used: 3mm curette Severity: Fat Layer Exposed Amount of bleeding with debridement: Mild Bleeding Controlled with: Compression and gauze Patient tolerated procedure well - Additional Wound Laterality: Right - Second toe dorsum Type of Debridement: Excisional debridement Anesthesia Used: 4% Lidocaine Solution Depth: Down to and including healthy tissue, in the subcutaneous layer Percentage of wound debrided: 100 Instrument Used: 3mm curette Severity: Fat Layer Exposed Amount of bleeding with debridement: Mild Bleeding Controlled with: Compression and gauze Patient tolerated procedure: Patient tolerated procedure well Assessment/Plan Active Problems Swelling of right lower extremity (Chronic) Edema leg (Chronic) Ulcer of great toe (Chronic) Ulcer, pressure (Chronic) Assessment: This is a 68-year-old male with a long-standing history of chronic venous disease, as described above. He recently presented with an ulceration on the dorsum of the right great toe. This has extended to involve the adjacent right second toe dorsum. This appears to be pressure related, and likely due to ill fitted footwear. The ulceration on the dorsum of the right great toe appears to be essentially healed. It is suspected that the patient's shoes may be properly fitted, but with swelling which occurs at the end of each day, the shoes may become too tight, causing pressure phenomenon resulting in an ulceration. He claims to have been wearing his graduated compression stockings on a daily basis. He makes an effort to elevate his lower extremities frequently. He sleeps on a flat surface at night. 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 However, given the patient's history, and his recent presentation, it appears as though there is a level of noncompliance which is contributing to the patient's presenting manifestations. He continues to wear his work boots, despite admonitions to do otherwise. Although it does appear as though the patient has recently obtained alternative footwear of a larger size, complying with recommendations for offloading of the critical areas on the dorsum of the toes of the right foot. The swelling, edema, erythema noted in the distal right lower extremity and foot several weeks ago has now resolved. Patient has completed his prescription for doxycycline. Plan: Debridement done as documented above. Procedure was well-tolerated. We will implement the use of collagen hydrogel topically on a daily basis. . Patient is to continue elevating his lower extremities as much as possible. He is to avoid idle sitting and standing. Activity has been encouraged. He has been advised to continue wearing graduated compression stockings as previously prescribed. Appropriate footwear has also been recommended, to avoid pressure phenomenon. Because of the persistent swelling in the right great toe, we will obtain an x-ray to determine whether there is underlying pathology. Patient will return in 1 week for reevaluation. The patient is not a smoker. Influenza vaccine was not administered today. The patient weighs 170 pounds. He stands 6 feet 0 inches tall. His BMI is 23.1, which is normal.
[2018-05-19 10:57] VITALS: BP 116/71; PULSE 64; RESP 16; TEMP 37.2
--- NOTE | 2018-05-19 11:54 | PCM.WC.HP ---
(1) Swelling of right lower extremity Status: Chronic Current Visit: Yes Code(s): M79.89 - Other specified soft tissue disorders (2) Edema leg Status: Chronic Current Visit: Yes Code(s): R60.0 - Localized edema (3) Ulcer of great toe Status: Chronic Current Visit: Yes Qualifiers: Laterality: right Non-pressure ulcer stage: with fat layer exposed Qualified Code(s): L97.512 - Non-pressure chronic ulcer of other part of right foot with fat layer exposed Code(s): L97.509 - Non-pressure chronic ulcer of other part of unspecified foot with unspecified severity (4) Parkinsons disease Status: Chronic Current Visit: No Code(s): G20 - Parkinson's disease (5) Venous hypertension, chronic, with inflammation Status: Chronic Current Visit: No Qualifiers: Laterality: bilateral Code(s): I87.329 - Chronic venous hypertension (idiopathic) with inflammation of unspecified lower extremity (6) Varicose veins with inflammation Status: Chronic Current Visit: No Code(s): I83.10 - Varicose veins of unspecified lower extremity with inflammation (7) Venous hypertension, chronic, with ulcer and inflammation Status: Chronic Current Visit: No Qualifiers: Laterality: bilateral Qualified Code(s): I87.333 - Chronic venous hypertension (idiopathic) with ulcer and inflammation of bilateral lower extremity; L97.919 - Non-pressure chronic ulcer of unspecified part of right lower leg with unspecified severity; L97.929 - Non-pressure chronic ulcer of unspecified part of left lower leg with unspecified severity Code(s): I87.339 - Chronic venous hypertension (idiopathic) with ulcer and inflammation of unspecified lower extremity (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 Current Visit: No Code(s): I87.091 - Postthrombotic syndrome with other complications of right lower extremity (9) Varicose veins with ulcer and inflammation Status: Chronic Current Visit: No Code(s): I83.209 - Varicose veins of unspecified lower extremity with both ulcer of unspecified site and inflammation; L97.909 - Non-pressure chronic ulcer of unspecified part of unspecified lower leg with unspecified severity (10) Chronic venous insufficiency Status: Chronic Current Visit: No (11) History of ulcer of lower extremity Status: Chronic Current Visit: No Code(s): Z87.2 - Personal history of diseases of the skin and subcutaneous tissue (12) Postphlebitic syndrome with inflammation Status: Chronic Current Visit: No Code(s): I87.029 - Postthrombotic syndrome with inflammation of unspecified lower extremity (13) Ulcer, pressure Status: Chronic Current Visit: Yes Qualifiers: Pressure injury location: toe Pressure injury stage: stage 2 Laterality: right Qualified Code(s): L89.892 - Pressure ulcer of other site, stage 2 Code(s): L89.90 - Pressure ulcer of unspecified site, unspecified stage History of Present Illness Date of Service: 05/19/18 Chief Complaint: Ulceration of the right great and second toe History of Wound: This is a 68-year-old male who presented with a one-month history of ulceration on the dorsum of his right great toe. The patient was not sure as to the etiology. He is suspicious, however, that this may be related to pressure from an-ill fitting shoe. The patient has a long-standing history of chronic venous disease. The patient suffers from chronic venous insufficiency, varicose veins with inflammation and ulceration, venous hypertension with inflammation, postphlebitic syndrome with inflammation, etc. He has been treated for a venous ulceration on the right lateral malleolus, which has healed. He has suffered from venous disease for many years. In April 2013 he underwent endovenous laser ablation of the right great saphenous vein, the right small saphenous vein, and the right accessory saphenous vein. A subsequent venous duplex examination two months later revealed successful ablation of the right great saphenous vein, small saphenous vein, and accessory saphenous vein. The patient subsequently presented with ulcerations which occurred on the right medial malleolus and on the dorsum of the right second toe. The ulceration near the right medial malleolus appeared to be related to the patient's chronic venous disease. The ulceration on the right second toe appeared to be related to pressure from poorly-fitted work boots. The ulceration on the right second toe appeared pressure related, stage II, and likely due to swelling of the foot while wearing work boots. The patient's wound subsequently healed, the patient was discharged for as needed follow-up. Patient has been wearing graduated compression stockings of 20-30 mmHg on a daily basis. 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 The patient had also been instructed to avoid idle standing and sitting. However, it is known that the patient is relatively noncompliant with recommended treatment measures. 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 A noninvasive lower extremity arterial study performed in 2012 was normal. More recently, and noninvasive lower extremity arterial study on April 07, 2018, was also normal. 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 Allergies/Adverse Reactions: Allergies No Known Allergies Allergy (Verified 08/28/17 10:21) Home Medications: Ambulatory Orders Medication Instructions Recorded Carbidopa/Levodopa 50/200 [Sinemet 1 tablet PO BIDAC 08/28/17 CR] Warfarin Sodium [Coumadin] 9 mg PO DAILY 08/28/17 - Family History Maternal No pertinent history, - - Patient's father at the age of 92 of old age. Patient's mother at the age of 76 with a history of myocardial infarction. Smoking Status: Never smoker Tobacco Use: Non-smoker Review of Systems Constitutional: Denies: Chills, Fever, Weight Change Eyes: Denies: Pain, Vision Change HEENT: Denies: Difficulty Hearing, Difficulty Swallowing, Sinus Congestion Cardiovascular: Denies: Chest Pain, Palpitations Respiratory: Denies: Cough, Shortness of Breath Gastrointestinal: Denies: Diarrhea, Nausea, Vomiting Genitourinary: Denies: Dysuria, Hematuria Endocrine: Denies: Heat/ Cold Intolerance, Polydipsia, Polyuria Hematologic/ Lymphatic: Denies: Easy Bruising, Easy Bleeding - Physical Exam Vital Signs Temp Pulse Resp BP 98.9 F 64 16 116/71 05/19/18 10:57 05/19/18 10:57 05/19/18 10:57 05/19/18 10:57 General: Alert, Oriented x3, Cooperative, No apparent distress, Well developed, Well nourished HEENT: Atraumatic, PERRLA, EOMI, Normocephalic Oral: Moist Mucosa Neck: No JVD Lungs: Normal air movement Abdomen: Non-Distended Extremities: No clubbing, No cyanosis, No Calf Tenderness, - - Mild swelling and edema persist in the right foot. The ulceration on the dorsum of the right great toe appears to be completely healed. The ulceration on the dorsum of the right second toe is slightly enlarged. Dimensions are documented elsewhere. The base of the ulceration is pink and healthy in appearance, with a mild to moderate amount of bioburden. There is no sign of infection or cellulitis. Skin: No rashes Wound Measurements and Assessment WC - Nurse 1 - General Ulcer Measurement Start: 04/28/18 10:37 Freq: Status: Active Protocol: Activity Type Activity Date Activity User E-Sign Co-Sign Detail Recorded Client Recorded Date Recorded By Document 05/19/18 10:57 [id number] 05/19/18 11:07 05/19/18 10:57 Wound Center Nurse 1 [Ulcer Assessment] 13-right 2nd toe cluster -Combined with other wound No -Current Size (cm) - Length 2.0 -Current Size (cm) - Width 0.8 -Current Size (cm) - Depth 0.2 -Total Square Cm 1.60 -Photo Taken Yes -Epithelialization Small 1-33% -Tunneling No -Undermining/Tunneling No -Circular Undermining No -Exudate Amt Small (1-33%) -Exudate Type Serosanguineous -Wound Margin Flat & Intact -Granulation Amt Large (67-100%) -Granulation Quality Red -Slough/Fibrin Yes -Necrosis Amt Small (1-33%) -Necrotic Tissue Type Adherent Slough -Structure Exposed N/A -Texture (Tara-wound Skin Appearance) Assessed Localized Edema -Moisture (Tara-wound Skin Appearance Assessed ) Dry/Scaly -Color (Tara-wound Skin Appearance) Assessed Hemosiderin Staining -Temperature (Tara-wound Skin No Abnormality Appearance) (Pt Warm) -Tenderness on Palpation (Tara-wound No Skin Appearance) -Ulcer Cleansing Wound Cleanser -Foul Odor after Cleansing No -Anesthetic Used 4% Lidocaine Solution 12- right hallux crease -Combined with other wound No -Current Size (cm) - Length 0.1 -Current Size (cm) - Width 0.1 -Current Size (cm) - Depth 0.1 -Total Square Cm 0.01 -Photo Taken Yes -Epithelialization Small 1-33% -Tunneling No -Undermining/Tunneling No -Circular Undermining No -Exudate Amt Small (1-33%) -Exudate Type Serosanguineous -Wound Margin Flat & Intact -Granulation Amt Small (1-33%) -Granulation Quality Red -Slough/Fibrin Yes -Necrosis Amt Small (1-33%) -Necrotic Tissue Type Adherent Slough -Structure Exposed N/A -Texture (Tara-wound Skin Appearance) Assessed Localized Edema -Moisture (Tara-wound Skin Appearance Assessed ) Dry/Scaly -Color (Tara-wound Skin Appearance) Assessed -Temperature (Tara-wound Skin No Abnormality Appearance) (Pt Warm) -Tenderness on Palpation (Tara-wound No Skin Appearance) -Ulcer Cleansing Rinsed/ Irrigated with Saline -Foul Odor after Cleansing No -Anesthetic Used 4% Lidocaine Solution [Edema Assessment] -Lower Limb Edema Present Yes -Right Calf (cm) 40.0 -Right Ankle (cm) 23.5 WC - Nurse 2 - General Ulcer CM Notes Start: 04/28/18 10:37 Freq: Status: Active Protocol: Activity Type Activity Date Activity User E-Sign Co-Sign Detail Recorded Client Recorded Date Recorded By Document 05/19/18 11:46 [email or web address] [id number] 05/19/18 11:50 [email or web address] 05/19/18 11:46 Wound Center Nurse 2 [Procedure/Treatment] 13-right 2nd toe cluster -Time 11:48 -Correct Patient Yes -Correct Side, Site, Position Yes -Correct Procedure Yes -Procedure Performed Yes -Type of Procedure Debridement -Clinical Debridement Subcutaneous -Post Debridement Size (cm) - Length 2.0 -Post Debridement Size (cm) - Width 1.0 -Post Debridement Size (cm) - Depth 0.1 -Total Square Cm 2.00 -Wound/Ulcer Outcome Not Healed -Foul Odor after Cleansing No -Bioengineered Tissue No -Topical Lidocaine (%) 4 -Lidocaine (ml) 5 -Bleeding Controlled with NA 12- right hallux crease -Time 11:48 -Correct Patient Yes -Correct Side, Site, Position Yes -Correct Procedure Yes -Procedure Performed No -Post Debridement Size (cm) - Length 0 -Post Debridement Size (cm) - Width 0 -Post Debridement Size (cm) - Depth 0 -Total Square Cm 0 -Wound/Ulcer Outcome Healed- Epithelialized [See Physician Procedure note for Specifics] Pain Scale: 0-10 Numeric [Pain] -Is Patient Pain Free? Yes Musculoskeletal: No Muscle Wasting Neurological: Cranial nerves II-XII grossly intact, Neuro grossly intact Psych/Mental Status: Normal Affect, Appropriate, Alert and oriented to time, place, person, mood and affect Debridement Note Post-Debridement Measurements/Treatment WC - Nurse 2 - General Ulcer CM Notes Start: 04/28/18 10:37 Freq: Status: Active Protocol: Activity Type Activity Date Activity User E-Sign Co-Sign Detail Recorded Client Recorded Date Recorded By Document 04/28/18 11:36 [id number] 04/28/18 11:46 JS Document 05/05/18 11:31 JS [id number] 05/05/18 11:38 JS Document 05/12/18 11:18 JS [id number] 05/12/18 11:42 JS Document 05/19/18 11:46 JS [id number] 05/19/18 11:50 JS 04/28/18 05/05/18 05/12/18 11:36 11:31 11:18 Wound Center Nurse 2 13-right 2nd toe cluster -Time 11:39 11:31 11:19 -Correct Patient Yes Yes Yes -Correct Side, Site, Position Yes Yes Yes -Correct Procedure Yes Yes Yes -Procedure Performed Yes Yes Yes -Type of Procedure Debridement Debridement Debridement -Clinical Debridement Subcutaneous Subcutaneous Subcutaneous -Post Debridement Size (cm) - Length 2.4 1.1 1.4 -Post Debridement Size (cm) - Width 1.1 1.0 1.0 -Post Debridement Size (cm) - Depth 0.2 0.1 0.2 -Total Square Cm 2.64 1.10 1.40 -Wound/Ulcer Outcome Not Healed Not Healed Not Healed -Ulcer Cleansing Rinsed/ Rinsed/ Rinsed/ Irrigated with Irrigated with Irrigated with Saline Saline Saline -Foul Odor after Cleansing No No No -Bioengineered Tissue No No No -Topical Lidocaine (%) 4 -Lidocaine (ml) 5 -Bleeding Controlled with NA NA NA -Treatment Response Procedure Procedure Procedure Tolerated Well Tolerated Well Tolerated Well 12- right hallux crease -Time 11:39 11:31 11:19 -Correct Patient Yes Yes Yes -Correct Side, Site, Position Yes Yes Yes -Correct Procedure Yes Yes Yes -Procedure Performed Yes No Yes -Type of Procedure Debridement Debridement -Clinical Debridement Subcutaneous Subcutaneous -Post Debridement Size (cm) - Length 0.3 0.1 1.0 -Post Debridement Size (cm) - Width 1.7 0.1 0.3 -Post Debridement Size (cm) - Depth 0.1 0.1 0.2 -Total Square Cm 0.51 0.01 0.30 -Wound/Ulcer Outcome Not Healed Not Healed Not Healed -Ulcer Cleansing Rinsed/ Rinsed/ Rinsed/ Irrigated with Irrigated with Irrigated with Saline Saline Saline -Foul Odor after Cleansing No No No -Bioengineered Tissue No No No -Topical Lidocaine (%) 4 -Lidocaine (ml) 5 -Bleeding Controlled with NA NA NA -Treatment Response Procedure Procedure Procedure Tolerated Well Tolerated Well Tolerated Well Pain Scale: 0-10 Numeric Is Patient Pain Free? Yes Yes Yes 05/19/18 11:46 Wound Center Nurse 2 13-right 2nd toe cluster -Time 11:48 -Correct Patient Yes -Correct Side, Site, Position Yes -Correct Procedure Yes -Procedure Performed Yes -Type of Procedure Debridement -Clinical Debridement Subcutaneous -Post Debridement Size (cm) - Length 2.0 -Post Debridement Size (cm) - Width 1.0 -Post Debridement Size (cm) - Depth 0.1 -Total Square Cm 2.00 -Wound/Ulcer Outcome Not Healed -Ulcer Cleansing -Foul Odor after Cleansing No -Bioengineered Tissue No -Topical Lidocaine (%) 4 -Lidocaine (ml) 5 -Bleeding Controlled with NA -Treatment Response 12- right hallux crease -Time 11:48 -Correct Patient Yes -Correct Side, Site, Position Yes -Correct Procedure Yes -Procedure Performed No -Type of Procedure -Clinical Debridement -Post Debridement Size (cm) - Length 0 -Post Debridement Size (cm) - Width 0 -Post Debridement Size (cm) - Depth 0 -Total Square Cm 0 -Wound/Ulcer Outcome Healed- Epithelialized -Ulcer Cleansing -Foul Odor after Cleansing -Bioengineered Tissue -Topical Lidocaine (%) -Lidocaine (ml) -Bleeding Controlled with -Treatment Response Pain Scale: 0-10 Numeric Is Patient Pain Free? Yes Laterality: Right - Dorsum of second toe Type of Debridement: Excisional debridement Anesthesia Used: 4% Lidocaine Solution Depth: Down to and including healthy tissue, in the subcutaneous layer Percentage of wound debrided: 100 Instrument Used: 5mm curette Severity: Fat Layer Exposed Amount of bleeding with debridement: Mild Bleeding Controlled with: Compression and gauze Patient tolerated procedure well Assessment/Plan Clinical Impression(s) from Imaging Studies Toe X-Ray 05/12/18 12:08 IMPRESSION: Swelling of the big toe with no indication of osteomyelitis or fractures Electronically Signed: Hi Luis, at 7:52 EDT Tel , Service support , Active Problems Swelling of right lower extremity (Chronic) Edema leg (Chronic) Ulcer of great toe (Chronic) Ulcer, pressure (Chronic) Assessment: This is a 68-year-old male with a long-standing history of chronic venous disease, as described above. He recently presented with an ulceration on the dorsum of the right great toe. This has extended to involve the adjacent right second toe dorsum. This appears to be pressure related, and likely due to ill fitted footwear. The ulceration on the dorsum of the right great toe appears to be essentially healed. It is suspected that the patient's shoes may be properly fitted, but with swelling which occurs at the end of each day, the shoes may become too tight, causing pressure phenomenon resulting in an ulceration. He claims to have been wearing his graduated compression stockings on a daily basis. He makes an effort to elevate his lower extremities frequently. He sleeps on a flat surface at night. 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 However, given the patient's history, and his recent presentation, it appears as though there is a level of noncompliance which is contributing to the patient's presenting manifestations. He continues to wear his work boots, despite admonitions to do otherwise. Although it does appear as though the patient has recently obtained alternative footwear of a larger size, complying with recommendations for offloading of the critical areas on the dorsum of the toes of the right foot. The swelling, edema, erythema noted in the distal right lower extremity and foot has improved, but does persist. Patient has recently undergone an x-ray of his right foot, which reveals no evidence of osteomyelitis. Plan: Debridement done as documented above. Procedure was well-tolerated. We will continue the use of collagen hydrogel topically on a daily basis. . Patient is to continue elevating his lower extremities as much as possible. He is to avoid idle sitting and standing. Activity has been encouraged. He has been advised to continue wearing graduated compression stockings as previously prescribed. Appropriate footwear has also been recommended, to avoid pressure phenomenon. Because of continuing concerns as to offloading of the right foot, we are to seek evaluation at [facility] for fitting of foot wear with proper offloading. Patient will return in 1 week for reevaluation. The patient is not a smoker. Influenza vaccine was not administered today. The patient weighs 170 pounds. He stands 6 feet 0 inches tall. His BMI is 23.1, which is normal.
== END 2018-05-22 23:59 ==
LOC: WC 10:45
PROVIDERS: Family Provider Family Medicine; PCP Family Medicine; Visit Provider Surgery
DX: I83.015 Varicose veins of right lower extremity with ulcer other part of foot (principal); G20 Parkinson's disease; L89.892 Pressure ulcer of other site, stage 2
CPT/HCPCS: 11042; 73660

== ENCOUNTER 2018-06-16 10:15 | Outpatient (RCR) | payer MEDICARE, OTHER, SELFPAY ==
[2018-05-23 01:20] VITALS: BP 116/71; PULSE 64; RESP 16; TEMP 37.2
[2018-05-26 10:04] VITALS: BP 111/77; PULSE 75; RESP 16; TEMP 36.6
--- NOTE | 2018-05-26 10:43 | PCM.WC.HP ---
(1) Swelling of right lower extremity Status: Chronic Current Visit: Yes Code(s): M79.89 - Other specified soft tissue disorders (2) Edema leg Status: Chronic Current Visit: Yes Code(s): R60.0 - Localized edema (3) Ulcer of great toe Status: Resolved Current Visit: No Qualifiers: Laterality: right Code(s): L97.509 - Non-pressure chronic ulcer of other part of unspecified foot with unspecified severity (4) Parkinsons disease Status: Chronic Current Visit: No Code(s): G20 - Parkinson's disease (5) Venous hypertension, chronic, with inflammation Status: Chronic Current Visit: Yes Qualifiers: Laterality: bilateral Code(s): I87.329 - Chronic venous hypertension (idiopathic) with inflammation of unspecified lower extremity (6) Varicose veins with inflammation Status: Chronic Current Visit: Yes Code(s): I83.10 - Varicose veins of unspecified lower extremity with inflammation (7) Venous hypertension, chronic, with ulcer and inflammation Status: Chronic Current Visit: Yes Qualifiers: Code(s): I87.339 - Chronic venous hypertension (idiopathic) with ulcer and inflammation of unspecified lower extremity (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 Current Visit: Yes Code(s): I87.091 - Postthrombotic syndrome with other complications of right lower extremity (9) Varicose veins with ulcer and inflammation Status: Resolved Current Visit: No Code(s): I83.209 - Varicose veins of unspecified lower extremity with both ulcer of unspecified site and inflammation; L97.909 - Non-pressure chronic ulcer of unspecified part of unspecified lower leg with unspecified severity (10) Chronic venous insufficiency Status: Chronic Current Visit: Yes (11) Venous ulcer of ankle Status: Resolved Current Visit: No Qualifiers: Code(s): I83.003 - Varicose veins of unspecified lower extremity with ulcer of ankle (12) Venous ulcer of right lower extremity with varicose veins Status: Resolved Current Visit: No Code(s): I83.019 - Varicose veins of right lower extremity with ulcer of unspecified site (13) History of ulcer of lower extremity Status: Chronic Current Visit: No Code(s): Z87.2 - Personal history of diseases of the skin and subcutaneous tissue (14) Postphlebitic syndrome with inflammation Status: Chronic Current Visit: Yes Code(s): I87.029 - Postthrombotic syndrome with inflammation of unspecified lower extremity (15) Ulcer, pressure Status: Chronic Current Visit: Yes Qualifiers: Pressure injury location: toe Pressure injury stage: stage 2 Laterality: right Qualified Code(s): L89.892 - Pressure ulcer of other site, stage 2 Code(s): L89.90 - Pressure ulcer of unspecified site, unspecified stage History of Present Illness Date of Service: 05/26/18 Chief Complaint: Ulceration of the right second toe History of Wound: This is a 68-year-old male who presented with a one-month history of ulceration on the dorsum of his right great toe. The patient was not sure as to the etiology. He was suspicious, however, that this may be related to pressure from an-ill fitting shoe. The patient has a long-standing history of chronic venous disease. The patient suffers from chronic venous insufficiency, varicose veins with inflammation and ulceration, venous hypertension with inflammation, postphlebitic syndrome with inflammation, etc. He has been treated for a venous ulceration on the right lateral malleolus, which has healed. He has suffered from venous disease for many years. In April 2013 he underwent endovenous laser ablation of the right great saphenous vein, the right small saphenous vein, and the right accessory saphenous vein. A subsequent venous duplex examination two months later revealed successful ablation of the right great saphenous vein, small saphenous vein, and accessory saphenous vein. The patient subsequently presented with ulcerations which occurred on the right medial malleolus and on the dorsum of the right second toe. The ulceration near the right medial malleolus appeared to be related to the patient's chronic venous disease. The ulceration on the right second toe appeared to be related to pressure from poorly-fitted work boots. The ulceration on the right second toe appeared pressure related, stage II, and likely due to swelling of the foot while wearing work boots. The patient's wound subsequently healed, the patient was discharged for as needed follow-up. Patient has been wearing graduated compression stockings of 20-30 mmHg on a daily basis. 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 The patient had also been instructed to avoid idle standing and sitting. However, it is known that the patient is relatively noncompliant with recommended treatment measures. 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 A noninvasive lower extremity arterial study performed in 2012 was normal. More recently, and noninvasive lower extremity arterial study on April 07, 2018, was also normal. 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 Allergies/Adverse Reactions: Allergies No Known Allergies Allergy (Verified 08/28/17 10:21) Home Medications: Ambulatory Orders Medication Instructions Recorded Carbidopa/Levodopa 50/200 [Sinemet 1 tablet PO BIDAC 08/28/17 CR] Warfarin Sodium [Coumadin] 9 mg PO DAILY 08/28/17 - Family History Maternal No pertinent history, - - Patient's father at the age of 92 of old age. Patient's mother at the age of 76 with a history of myocardial infarction. Smoking Status: Never smoker Tobacco Use: Non-smoker Review of Systems Constitutional: Denies: Chills, Fever, Weight Change Eyes: Denies: Pain, Vision Change HEENT: Denies: Difficulty Hearing, Difficulty Swallowing, Sinus Congestion Cardiovascular: Denies: Chest Pain, Palpitations Respiratory: Denies: Cough, Shortness of Breath Gastrointestinal: Denies: Diarrhea, Nausea, Vomiting Genitourinary: Denies: Dysuria, Hematuria Endocrine: Denies: Heat/ Cold Intolerance, Polydipsia, Polyuria Hematologic/ Lymphatic: Denies: Easy Bruising, Easy Bleeding - Physical Exam Vital Signs Temp Pulse Resp BP 97.8 F 75 16 111/77 05/26/18 10:04 05/26/18 10:04 05/26/18 10:04 05/26/18 10:04 General: Alert, Oriented x3, Cooperative, No apparent distress, Well developed, Well nourished HEENT: Atraumatic, PERRLA, EOMI, Normocephalic Oral: Moist Mucosa Neck: No JVD Lungs: Normal air movement Abdomen: Non-Distended Extremities: No clubbing, No cyanosis, No Calf Tenderness, - - The swelling and edema in the patient's lower extremities appears to be reasonably well controlled. The ulceration on the dorsum of the right great toe is now completely healed and epithelialized. The ulceration on the dorsum of the right second toe persists, relatively unchanged in size or appearance. The base of the ulceration is pink and healthy in appearance. There is no sign of infection or cellulitis. Dimensions are documented elsewhere. Wound Measurements and Assessment WC - Nurse 1 - General Ulcer Measurement Start: 05/26/18 10:04 Freq: Status: Active Protocol: Activity Type Activity Date Activity User E-Sign Co-Sign Detail Recorded Client Recorded Date Recorded By Document 05/26/18 10:04 [id number] 05/26/18 10:06 05/26/18 10:04 Wound Center Nurse 1 [Ulcer Assessment] 13-right 2nd toe cluster -Combined with other wound No -Current Size (cm) - Length 2.1 -Current Size (cm) - Width 1.3 -Current Size (cm) - Depth 0.2 -Total Square Cm 2.73 -Photo Taken No -Epithelialization None Present -Tunneling No -Undermining/Tunneling No -Circular Undermining No -Granulation Amt Medium (34-66%) -Granulation Quality Pale [place] -Slough/Fibrin Yes -Necrosis Amt None Present (0 %) -Necrotic Tissue Type Adherent Slough -Structure Exposed None/Limited to Skin Breakdown -Moisture (Tara-wound Skin Appearance Assessed ) Maceration -Temperature (Tara-wound Skin No Abnormality Appearance) (Pt Warm) -Tenderness on Palpation (Tara-wound Yes Skin Appearance) -Ulcer Cleansing Wound Cleanser -Foul Odor after Cleansing No -Anesthetic Used 4% Lidocaine Solution [Edema Assessment] -Lower Limb Edema Present NA WC - Nurse 2 - General Ulcer CM Notes Start: 05/26/18 10:04 Freq: Status: Active Protocol: Activity Type Activity Date Activity User E-Sign Co-Sign Detail Recorded Client Recorded Date Recorded By Document 05/26/18 10:28 [id number] 05/26/18 10:32 05/26/18 10:28 Wound Center Nurse 2 [Procedure/Treatment] 13-right 2nd toe cluster -Time 10:28 -Correct Patient Yes -Correct Side, Site, Position Yes -Correct Procedure Yes -Procedure Performed Yes -Type of Procedure Debridement -Clinical Debridement Subcutaneous -Post Debridement Size (cm) - Length 1.8 -Post Debridement Size (cm) - Width 1.1 -Post Debridement Size (cm) - Depth 0.2 -Total Square Cm 1.98 -Wound/Ulcer Outcome Not Healed -Ulcer Cleansing Rinsed/ Irrigated with Saline -Foul Odor after Cleansing No -Bioengineered Tissue No -Bleeding Controlled with NA -Treatment Response Procedure Tolerated Well [See Physician Procedure note for Specifics] Pain Scale: 0-10 Numeric [Pain] -Is Patient Pain Free? Yes Neurological: Cranial nerves II-XII grossly intact, Neuro grossly intact Psych/Mental Status: Normal Affect, Appropriate, Alert and oriented to time, place, person, mood and affect Debridement Note Post-Debridement Measurements/Treatment WC - Nurse 2 - General Ulcer CM Notes Start: 05/26/18 10:04 Freq: Status: Active Protocol: Activity Type Activity Date Activity User E-Sign Co-Sign Detail Recorded Client Recorded Date Recorded By Document 05/26/18 10:28 [id number] 05/26/18 10:32 05/26/18 10:28 Wound Center Nurse 2 13-right 2nd toe cluster -Time 10:28 -Correct Patient Yes -Correct Side, Site, Position Yes -Correct Procedure Yes -Procedure Performed Yes -Type of Procedure Debridement -Clinical Debridement Subcutaneous -Post Debridement Size (cm) - Length 1.8 -Post Debridement Size (cm) - Width 1.1 -Post Debridement Size (cm) - Depth 0.2 -Total Square Cm 1.98 -Wound/Ulcer Outcome Not Healed -Ulcer Cleansing Rinsed/ Irrigated with Saline -Foul Odor after Cleansing No -Bioengineered Tissue No -Bleeding Controlled with NA -Treatment Response Procedure Tolerated Well Pain Scale: 0-10 Numeric Is Patient Pain Free? Yes Laterality: Right - Second toe, dorsum Type of Debridement: Excisional debridement Anesthesia Used: 4% Lidocaine Solution Depth: Down to and including healthy tissue, in the subcutaneous layer Percentage of wound debrided: 100 Instrument Used: 5mm curette Severity: Fat Layer Exposed Amount of bleeding with debridement: Mild Bleeding Controlled with: Compression and gauze Patient tolerated procedure well Assessment/Plan Active Problems Swelling of right lower extremity (Chronic) Edema leg (Chronic) Venous hypertension, chronic, with inflammation (Chronic) Varicose veins with inflammation (Chronic) Venous hypertension, chronic, with ulcer and inflammation (Chronic) 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 He recently presented with an ulceration on the dorsum of the right great toe. This has extended to involve the adjacent right second toe dorsum. This appears to be pressure related, and likely due to ill fitted footwear. The ulceration on the dorsum of the right great toe is healed. It is suspected that the patient's shoes may be properly fitted, but with swelling which occurs at the end of each day, the shoes may become too tight, causing pressure phenomenon resulting in an ulceration. He claims to have been wearing his graduated compression stockings on a daily basis. He makes an effort to elevate his lower extremities frequently. He sleeps on a flat surface at night. 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 However, given the patient's history, and his recent presentation, it appears as though there is a level of noncompliance which is contributing to the patient's presenting manifestations. He continues to wear his work boots, despite admonitions to do otherwise. Although it does appear as though the patient has recently obtained alternative footwear of a larger size, complying with recommendations for offloading of the critical areas on the dorsum of the toes of the right foot. The swelling, edema, erythema noted in the distal right lower extremity and foot has improved, but does persist. Patient has recently undergone an x-ray of his right foot, which reveals no evidence of osteomyelitis. Plan: Debridement done as documented above. Procedure was well-tolerated. We will discontinue the use of collagen hydrogel, as there is a hint of maceration peripheral to the ulceration. In its place, we will implement the use of Aquacel silver. This will be applied every other day. Patient is to continue elevating his lower extremities as much as possible. He is to avoid idle sitting and standing. Activity has been encouraged. He has been advised to continue wearing graduated compression stockings as previously prescribed. Appropriate footwear has also been recommended, to avoid pressure phenomenon. Because of continuing concerns as to offloading of the right foot, we are to seek evaluation at [facility] for fitting of foot wear with proper offloading. The patient has an appointment with [facility] this afternoon, and hopes that he will be fitted with properly fitted shoes. Consideration had been given to the use of skin substitutes, but the location of the ulceration, given the contour and motion in this area, renders the use of a skin substitute somewhat undesirable. Patient will return in 1 week for reevaluation. The patient is not a smoker. Influenza vaccine was not administered today. The patient weighs 170 pounds. He stands 6 feet 0 inches tall. His BMI is 23.1, which is normal.
[2018-06-02 11:09] VITALS: BP 128/75; PULSE 60; RESP 18; TEMP 36.2
--- NOTE | 2018-06-02 12:05 | HP.PCM_ITS ---
(1) Swelling of right lower extremity Status: Chronic Current Visit: Yes Code(s): M79.89 - Other specified soft tissue disorders (2) Edema leg Status: Chronic Current Visit: Yes Code(s): R60.0 - Localized edema (3) Parkinsons disease Status: Chronic Current Visit: No Code(s): G20 - Parkinson's disease (4) Venous hypertension, chronic, with inflammation Status: Chronic Current Visit: Yes Qualifiers: Laterality: bilateral Code(s): I87.329 - Chronic venous hypertension (idiopathic) with inflammation of unspecified lower extremity (5) Varicose veins with inflammation Status: Chronic Current Visit: Yes Code(s): I83.10 - Varicose veins of unspecified lower extremity with inflammation (6) Venous hypertension, chronic, with ulcer and inflammation Status: Resolved Current Visit: Yes Qualifiers: Code(s): I87.339 - Chronic venous hypertension (idiopathic) with ulcer and inflammation of unspecified lower extremity (7) Post-phlebitic dermatosis of right lower extremity Status: Resolved Current Visit: Yes Code(s): I87.091 - Postthrombotic syndrome with other complications of right lower extremity (8) Chronic venous insufficiency Status: Chronic Current Visit: Yes (9) History of ulcer of lower extremity Status: Chronic Current Visit: Yes Code(s): Z87.2 - Personal history of diseases of the skin and subcutaneous tissue (10) Postphlebitic syndrome with inflammation Status: Chronic Current Visit: Yes Code(s): I87.029 - Postthrombotic syndrome with inflammation of unspecified lower extremity (11) Ulcer, pressure Status: Chronic Current Visit: Yes Qualifiers: Pressure injury location: toe Pressure injury stage: stage 2 Laterality: right Qualified Code(s): L89.892 - Pressure ulcer of other site, stage 2 Code(s): L89.90 - Pressure ulcer of unspecified site, unspecified stage History of Present Illness Date of Service: 06/02/18 Chief Complaint: Ulceration of the right second toe History of Wound: This is a 68-year-old male who presented with a one-month history of ulceration on the dorsum of his right great toe. Ulceration on the right great toe subsequently healed, we have been dealing most recently with an ulceration on the dorsum of the right second toe. This appears to be pressure related, likely due to poorly fitted shoes. The patient was not sure as to the etiology. He was suspicious, however, that this may be related to pressure from an-ill fitting shoe. The patient has a long-standing history of chronic venous disease. The patient suffers from chronic venous insufficiency, varicose veins with inflammation and ulceration, venous hypertension with inflammation, postphlebitic syndrome with inflammation, etc. He has been treated for a venous ulceration on the right lateral malleolus, which has healed. He has suffered from venous disease for many years. In April 2013 he underwent endovenous laser ablation of the right great saphenous vein, the right small saphenous vein, and the right accessory saphenous vein. A subsequent venous duplex examination two months later revealed successful ablation of the right great saphenous vein, small saphenous vein, and accessory saphenous vein. The patient subsequently presented with ulcerations which occurred on the right medial malleolus and on the dorsum of the right second toe. The ulceration near the right medial malleolus appeared to be related to the patient's chronic venous disease. The ulceration on the right second toe appeared to be related to pressure from poorly-fitted work boots. The ulceration on the right second toe appeared pressure related, stage II, and likely due to swelling of the foot while wearing work boots. The patient's wound subsequently healed, the patient was discharged for as needed follow-up. Patient has been wearing graduated compression stockings of 20-30 mmHg on a daily basis. 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 The patient had also been instructed to avoid idle standing and sitting. However, it is known that the patient is relatively noncompliant with recommended treatment measures. 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 A noninvasive lower extremity arterial study performed in 2012 was normal. More recently, and noninvasive lower extremity arterial study on April 07, 2018, was also normal. Past Medical History Past Medical History: Chronic Problems Swelling of right lower extremity (Chronic) Edema leg (Chronic) Parkinsons disease (Chronic) Venous hypertension, chronic, with inflammation (Chronic) Varicose veins with inflammation (Chronic) Chronic venous insufficiency (Chronic) History of ulcer of lower extremity (Chronic) Postphlebitic syndrome with inflammation (Chronic) Ulcer, pressure (Chronic) Surgical History: total knee arthroplasty, - - Patient underwent endovenous laser ablation of the right great saphenous vein, the right small saphenous vein , the right accessory saphenous vein on May 04, 2013. Allergies/Adverse Reactions: Allergies No Known Allergies Allergy (Verified 08/28/17 10:21) Home Medications: Ambulatory Orders Medication Instructions Recorded Carbidopa/Levodopa 50/200 [Sinemet 1 tablet PO BIDAC 08/28/17 CR] Warfarin Sodium [Coumadin] 9 mg PO DAILY 08/28/17 - Family History Maternal No pertinent history, - - Patient's father at the age of 92 of old age. Patient's mother at the age of 76 with a history of myocardial infarction. Smoking Status: Never smoker Tobacco Use: Non-smoker Review of Systems Constitutional: Denies: Chills, Fever, Weight Change Eyes: Denies: Pain, Vision Change HEENT: Denies: Difficulty Hearing, Difficulty Swallowing, Sinus Congestion Cardiovascular: Denies: Chest Pain, Palpitations Respiratory: Denies: Cough, Shortness of Breath Gastrointestinal: Denies: Diarrhea, Nausea, Vomiting Genitourinary: Denies: Dysuria, Hematuria Endocrine: Denies: Heat/ Cold Intolerance, Polydipsia, Polyuria Hematologic/ Lymphatic: Denies: Easy Bruising, Easy Bleeding - Physical Exam Vital Signs Temp Pulse Resp BP 97.1 F L 60 18 128/75 H 06/02/18 11:09 06/02/18 11:09 06/02/18 11:09 06/02/18 11:09 General: Alert, Oriented x3, Cooperative, No apparent distress, Well developed, Well nourished HEENT: Atraumatic, PERRLA, EOMI, Normocephalic Oral: Moist Mucosa Neck: No JVD Lungs: Normal air movement Abdomen: Non-Distended Extremities: No clubbing, No cyanosis, No Calf Tenderness, - - Minimal swelling and edema is noted in the lower extremity. The patient has a stage II pressure ulceration on the dorsum of the right second toe. It appears to be slightly smaller in size. The base of the ulceration is generally pink and healthy in appearance. There is a mild amount of bioburden. Dimensions are documented elsewhere. There is no sign of infection or cellulitis. Wound Measurements and Assessment WC - Nurse 1 - General Ulcer Measurement Start: 05/26/18 10:04 Freq: Status: Active Protocol: Activity Type Activity Date Activity User E-Sign Co-Sign Detail Recorded Client Recorded Date Recorded By Document 06/02/18 11:09 DL [id number] 06/02/18 11:17 DL 06/02/18 11:09 Wound Center Nurse 1 [Ulcer Assessment] 13-right 2nd toe cluster -Current Size (cm) - Length 1.3 -Current Size (cm) - Width 1.9 -Current Size (cm) - Depth 0.1 -Total Square Cm 2.47 -Photo Taken No -Exudate Amt Small (1-33%) -Exudate Type Serosanguineous -Wound Margin Thickened -Granulation Amt Small (1-33%) -Granulation Quality [place] -Necrosis Amt Small (1-33%) -Necrotic Tissue Type Adherent Slough -Structure Exposed N/A -Texture (Tara-wound Skin Appearance) Localized Edema Scarring -Moisture (Tara-wound Skin Appearance Maceration ) -Color (Tara-wound Skin Appearance) Erythema -Temperature (Tara-wound Skin No Abnormality Appearance) (Pt Warm) -Ulcer Cleansing Rinsed/ Irrigated with Saline -Foul Odor after Cleansing No -Anesthetic Used 4% Lidocaine Solution [Edema Assessment] -Right Calf (cm) 38 -Right Ankle (cm) 22.4 WC - Nurse 2 - General Ulcer CM Notes Start: 05/26/18 10:04 Freq: Status: Active Protocol: Activity Type Activity Date Activity User E-Sign Co-Sign Detail Recorded Client Recorded Date Recorded By Document 06/02/18 12:00 [email or web address] [id number] 06/02/18 12:00 [email or web address] 06/02/18 12:00 Wound Center Nurse 2 [Procedure/Treatment] 13-right 2nd toe cluster -Time 12:00 -Correct Patient Yes -Correct Side, Site, Position Yes -Correct Procedure Yes -Procedure Performed Yes -Type of Procedure Debridement -Clinical Debridement Subcutaneous -Post Debridement Size (cm) - Length 1.9 -Post Debridement Size (cm) - Width 1.1 -Post Debridement Size (cm) - Depth 0.2 -Total Square Cm 2.09 -Wound/Ulcer Outcome Not Healed -Ulcer Cleansing Rinsed/ Irrigated with Saline -Foul Odor after Cleansing No -Bioengineered Tissue No -Topical Lidocaine (%) 4 -Bleeding Controlled with NA -Treatment Response Procedure Tolerated Well [See Physician Procedure note for Specifics] Pain Scale: 0-10 Numeric [Pain] -Is Patient Pain Free? Yes Neurological: Cranial nerves II-XII grossly intact, Neuro grossly intact Psych/Mental Status: Normal Affect, Appropriate, Alert and oriented to time, place, person, mood and affect Debridement Note Post-Debridement Measurements/Treatment WC - Nurse 2 - General Ulcer CM Notes Start: 05/26/18 10:04 Freq: Status: Active Protocol: Activity Type Activity Date Activity User E-Sign Co-Sign Detail Recorded Client Recorded Date Recorded By Document 05/26/18 10:28 [id number] 05/26/18 10:32 JS Document 06/02/18 12:00 JS [id number] 06/02/18 12:00 JS 05/26/18 06/02/18 10:28 12:00 Wound Center Nurse 2 13-right 2nd toe cluster -Time 10:28 12:00 -Correct Patient Yes Yes -Correct Side, Site, Position Yes Yes -Correct Procedure Yes Yes -Procedure Performed Yes Yes -Type of Procedure Debridement Debridement -Clinical Debridement Subcutaneous Subcutaneous -Post Debridement Size (cm) - Length 1.8 1.9 -Post Debridement Size (cm) - Width 1.1 1.1 -Post Debridement Size (cm) - Depth 0.2 0.2 -Total Square Cm 1.98 2.09 -Wound/Ulcer Outcome Not Healed Not Healed -Ulcer Cleansing Rinsed/ Rinsed/ Irrigated with Irrigated with Saline Saline -Foul Odor after Cleansing No No -Bioengineered Tissue No No -Topical Lidocaine (%) 4 -Bleeding Controlled with NA NA -Treatment Response Procedure Procedure Tolerated Well Tolerated Well Pain Scale: 0-10 Numeric Is Patient Pain Free? Yes Yes Laterality: Right - Second toe, dorsal Type of Debridement: Excisional debridement Anesthesia Used: 4% Lidocaine Solution Depth: Down to and including healthy tissue, in the subcutaneous layer Percentage of wound debrided: 100 Instrument Used: 5mm curette Severity: Fat Layer Exposed Amount of bleeding with debridement: Mild Bleeding Controlled with: Compression and gauze Patient tolerated procedure well Assessment/Plan Active Problems Swelling of right lower extremity (Chronic) Edema leg (Chronic) Venous hypertension, chronic, with inflammation (Chronic) Varicose veins with inflammation (Chronic) Chronic venous insufficiency (Chronic) History of ulcer of lower extremity (Chronic) Postphlebitic syndrome with inflammation (Chronic) Ulcer, pressure (Chronic) Assessment: This is a 68-year-old male with a long-standing history of chronic venous disease, as described above. He recently presented with an ulceration on the dorsum of the right great toe. This has extended to involve the adjacent right second toe dorsum. This appears to be pressure related, and likely due to ill fitted footwear. The ulceration on the dorsum of the right great toe is healed. It is suspected that the patient's shoes may be properly fitted, but with swelling which occurs at the end of each day, the shoes may become too tight, causing pressure phenomenon resulting in an ulceration. He claims to have been wearing his graduated compression stockings on a daily basis. He makes an effort to elevate his lower extremities frequently. He sleeps on a flat surface at night. 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 However, given the patient's history, and his recent presentation, it appears as though there is a level of noncompliance which is contributing to the patient 's presenting manifestations. He continues to wear his work boots, despite admonitions to do otherwise. Although it does appear as though the patient has recently obtained alternative footwear of a larger size, complying with recommendations for offloading of the critical areas on the dorsum of the toes of the right foot. The swelling, edema, erythema noted in the distal right lower extremity and foot has improved, but does persist. Patient has recently undergone an x-ray of his right foot, which reveals no evidence of osteomyelitis. Plan: Debridement done as documented above. Procedure was well-tolerated. We will discontinue the use of collagen hydrogel, as there is a hint of maceration peripheral to the ulceration. In its place, we will implement the use of Aquacel silver. This will be applied every other day. Patient is to continue elevating his lower extremities as much as possible. He is to avoid idle sitting and standing. Activity has been encouraged. He has been advised to continue wearing graduated compression stockings as previously prescribed. Appropriate footwear has also been recommended, to avoid pressure phenomenon. Because of continuing concerns as to offloading of the right foot, we have sought evaluation at [facility] for fitting of foot wear with proper offloading. The patient was evaluated last week, we have yet to hear back from [facility]. Our staff will contact them to determine their recommendations, and to expedite the creation of appropriate footwear. Consideration had been given to the use of skin substitutes, but the location of the ulceration, given the contour and motion in this area, renders the use of a skin substitute somewhat undesirable. Patient will return in 1 week for reevaluation. The patient is not a smoker. Influenza vaccine was not administered today. The patient weighs 170 pounds. He stands 6 feet 0 inches tall. His BMI is 23.1, which is normal.
[2018-06-09 10:31] VITALS: BP 107/70; PULSE 68; RESP 18; TEMP 37.3
--- NOTE | 2018-06-09 11:15 | PCM.WC.HP ---
(1) Swelling of right lower extremity Status: Chronic Current Visit: Yes Code(s): M79.89 - Other specified soft tissue disorders (2) Edema leg Status: Chronic Current Visit: Yes Code(s): R60.0 - Localized edema (3) Parkinsons disease Status: Chronic Current Visit: No Code(s): G20 - Parkinson's disease (4) Venous hypertension, chronic, with inflammation Status: Chronic Current Visit: Yes Qualifiers: Laterality: bilateral Code(s): I87.329 - Chronic venous hypertension (idiopathic) with inflammation of unspecified lower extremity (5) Varicose veins with inflammation Status: Chronic Current Visit: Yes Code(s): I83.10 - Varicose veins of unspecified lower extremity with inflammation (6) Venous hypertension, chronic, with ulcer and inflammation Status: Resolved Current Visit: Yes Qualifiers: Code(s): I87.339 - Chronic venous hypertension (idiopathic) with ulcer and inflammation of unspecified lower extremity (7) Post-phlebitic dermatosis of right lower extremity Status: Resolved Current Visit: Yes Code(s): I87.091 - Postthrombotic syndrome with other complications of right lower extremity (8) Chronic venous insufficiency Status: Chronic Current Visit: Yes (9) History of ulcer of lower extremity Status: Chronic Current Visit: Yes Code(s): Z87.2 - Personal history of diseases of the skin and subcutaneous tissue (10) Postphlebitic syndrome with inflammation Status: Chronic Current Visit: Yes Code(s): I87.029 - Postthrombotic syndrome with inflammation of unspecified lower extremity (11) Ulcer, pressure Status: Chronic Current Visit: Yes Qualifiers: Pressure injury location: toe Pressure injury stage: stage 2 Laterality: right Qualified Code(s): L89.892 - Pressure ulcer of other site, stage 2 Code(s): L89.90 - Pressure ulcer of unspecified site, unspecified stage History of Present Illness Date of Service: 06/09/18 Chief Complaint: Ulceration of the right second toe History of Wound: This is a 68-year-old male who presented with a one-month history of ulceration on the dorsum of his right great toe. Ulceration on the right great toe subsequently healed, we have been dealing most recently with an ulceration on the dorsum of the right second toe. This appears to be pressure related, likely due to poorly fitted shoes. The patient was not sure as to the etiology. He was suspicious, however, that this may be related to pressure from an-ill fitting shoe. The patient has a long-standing history of chronic venous disease. The patient suffers from chronic venous insufficiency, varicose veins with inflammation and ulceration, venous hypertension with inflammation, postphlebitic syndrome with inflammation, etc. He has been treated for a venous ulceration on the right lateral malleolus, which has healed. He has suffered from venous disease for many years. In April 2013 he underwent endovenous laser ablation of the right great saphenous vein, the right small saphenous vein, and the right accessory saphenous vein. A subsequent venous duplex examination two months later revealed successful ablation of the right great saphenous vein, small saphenous vein, and accessory saphenous vein. The patient subsequently presented with ulcerations which occurred on the right medial malleolus and on the dorsum of the right second toe. The ulceration near the right medial malleolus appeared to be related to the patient's chronic venous disease. The ulceration on the right second toe appeared to be related to pressure from poorly-fitted work boots. The ulceration on the right second toe appeared pressure related, stage II, and likely due to swelling of the foot while wearing work boots. The patient's wound subsequently healed, the patient was discharged for as needed follow-up. Patient has been wearing graduated compression stockings of 20-30 mmHg on a daily basis. 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 The patient had also been instructed to avoid idle standing and sitting. However, it is known that the patient is relatively noncompliant with recommended treatment measures. 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 A noninvasive lower extremity arterial study performed in 2012 was normal. More recently, and noninvasive lower extremity arterial study on April 07, 2018, was also normal. Past Medical History Past Medical History: Chronic Problems Swelling of right lower extremity (Chronic) Edema leg (Chronic) Parkinsons disease (Chronic) Venous hypertension, chronic, with inflammation (Chronic) Varicose veins with inflammation (Chronic) Chronic venous insufficiency (Chronic) History of ulcer of lower extremity (Chronic) Postphlebitic syndrome with inflammation (Chronic) Ulcer, pressure (Chronic) Surgical History: total knee arthroplasty, - - Patient underwent endovenous laser ablation of the right great saphenous vein, the right small saphenous vein, the right accessory saphenous vein on May 04, 2013. Allergies/Adverse Reactions: Allergies No Known Allergies Allergy (Verified 08/28/17 10:21) Home Medications: Ambulatory Orders Medication Instructions Recorded Carbidopa/Levodopa 50/200 [Sinemet 1 tablet PO BIDAC 08/28/17 CR] Warfarin Sodium [Coumadin] 9 mg PO DAILY 08/28/17 - Family History Maternal No pertinent history, - - Patient's father at the age of 92 of old age. Patient's mother at the age of 76 with a history of myocardial infarction. Smoking Status: Never smoker Tobacco Use: Non-smoker Review of Systems Constitutional: Denies: Chills, Fever, Weight Change Eyes: Denies: Pain, Vision Change HEENT: Denies: Difficulty Hearing, Difficulty Swallowing, Sinus Congestion Cardiovascular: Denies: Chest Pain, Palpitations Respiratory: Denies: Cough, Shortness of Breath Gastrointestinal: Denies: Diarrhea, Nausea, Vomiting Genitourinary: Denies: Dysuria, Hematuria Endocrine: Denies: Heat/ Cold Intolerance, Polydipsia, Polyuria Hematologic/ Lymphatic: Denies: Easy Bruising, Easy Bleeding - Physical Exam Vital Signs Temp Pulse Resp BP 99.1 F 68 18 107/70 06/09/18 10:31 06/09/18 10:31 06/09/18 10:31 06/09/18 10:31 General: Alert, Oriented x3, Cooperative, No apparent distress, Well developed, Well nourished HEENT: Atraumatic, PERRLA, EOMI, Normocephalic Oral: Moist Mucosa Neck: No JVD Lungs: Normal air movement Abdomen: Non-Distended Extremities: No clubbing, No cyanosis, No Calf Tenderness, - - The right great toe remains swollen and enlarged, appearing to be chronic in nature. The ulceration on the dorsum of the right great toe remains healed. The ulceration on the dorsum of the right second toe persists, with little change. The base of the ulceration is pink and healthy in appearance. There is a mild amount of bioburden. Dimensions are documented elsewhere. There is no sign of infection or cellulitis. The swelling in the lower extremities appears to be reasonably well controlled. Wound Measurements and Assessment WC - Nurse 1 - General Ulcer Measurement Start: 05/26/18 10:04 Freq: Status: Active Protocol: Activity Type Activity Date Activity User E-Sign Co-Sign Detail Recorded Client Recorded Date Recorded By Document 06/09/18 10:31 DL [id number] 06/09/18 10:36 DL 06/09/18 10:31 Wound Center Nurse 1 [Ulcer Assessment] 13-right 2nd toe cluster -Current Size (cm) - Length 1.3 -Current Size (cm) - Width 1.8 -Current Size (cm) - Depth 0.2 -Total Square Cm 2.34 -Photo Taken No -Exudate Amt Medium (34-66%) -Exudate Type Serosanguineous -Wound Margin Thickened -Granulation Amt Small (1-33%) -Granulation Quality [place] -Necrosis Amt Large (67-100%) -Necrotic Tissue Type Adherent Slough -Structure Exposed N/A -Texture (Tara-wound Skin Appearance) Scarring -Moisture (Tara-wound Skin Appearance Maceration ) -Color (Tara-wound Skin Appearance) Erythema Hemosiderin Staining -Temperature (Tara-wound Skin No Abnormality Appearance) (Pt Warm) -Tenderness on Palpation (Tara-wound No Skin Appearance) -Ulcer Cleansing Wound Cleanser -Foul Odor after Cleansing No -Anesthetic Used 4% Lidocaine Solution [Edema Assessment] -Right Calf (cm) 38.5 -Right Ankle (cm) 22.5 - Nurse 2 - General Ulcer CM Notes Start: 05/26/18 10:04 Freq: Status: Active Protocol: Activity Type Activity Date Activity User E-Sign Co-Sign Detail Recorded Client Recorded Date Recorded By Document 06/09/18 11:08 [id number] 06/09/18 11:09 06/09/18 11:08 Wound Center Nurse 2 [Procedure/Treatment] 13-right 2nd toe cluster -Time 11:08 -Correct Patient Yes -Correct Side, Site, Position Yes -Correct Procedure Yes -Procedure Performed Yes -Type of Procedure Debridement -Clinical Debridement Subcutaneous -Post Debridement Size (cm) - Length 1.3 -Post Debridement Size (cm) - Width 1.8 -Post Debridement Size (cm) - Depth 0.2 -Total Square Cm 2.34 -Wound/Ulcer Outcome Not Healed -Ulcer Cleansing Not Cleansed -Foul Odor after Cleansing No -Bioengineered Tissue No -Bleeding Controlled with NA -Treatment Response Procedure Tolerated Well [See Physician Procedure note for Specifics] Pain Scale: 0-10 Numeric [Pain] -Is Patient Pain Free? Yes Neurological: Cranial nerves II-XII grossly intact, Neuro grossly intact Psych/Mental Status: Normal Affect, Appropriate, Alert and oriented to time, place, person, mood and affect Debridement Note Post-Debridement Measurements/Treatment WC - Nurse 2 - General Ulcer CM Notes Start: 05/26/18 10:04 Freq: Status: Active Protocol: Activity Type Activity Date Activity User E-Sign Co-Sign Detail Recorded Client Recorded Date Recorded By Document 05/26/18 10:28 JS [id number] 05/26/18 10:32 JS Document 06/02/18 12:00 JS [id number] 06/02/18 12:00 JS Document 06/09/18 11:08 CS [id number] 06/09/18 11:09 CS 05/26/18 06/02/18 06/09/18 10:28 12:00 11:08 Wound Center Nurse 2 13-right 2nd toe cluster -Time 10:28 12:00 11:08 -Correct Patient Yes Yes Yes -Correct Side, Site, Position Yes Yes Yes -Correct Procedure Yes Yes Yes -Procedure Performed Yes Yes Yes -Type of Procedure Debridement Debridement Debridement -Clinical Debridement Subcutaneous Subcutaneous Subcutaneous -Post Debridement Size (cm) - Length 1.8 1.9 1.3 -Post Debridement Size (cm) - Width 1.1 1.1 1.8 -Post Debridement Size (cm) - Depth 0.2 0.2 0.2 -Total Square Cm 1.98 2.09 2.34 -Wound/Ulcer Outcome Not Healed Not Healed Not Healed -Ulcer Cleansing Rinsed/ Rinsed/ Not Cleansed Irrigated with Irrigated with Saline Saline -Foul Odor after Cleansing No No No -Bioengineered Tissue No No No -Topical Lidocaine (%) 4 -Bleeding Controlled with NA NA NA -Treatment Response Procedure Procedure Procedure Tolerated Well Tolerated Well Tolerated Well Pain Scale: 0-10 Numeric Is Patient Pain Free? Yes Yes Yes Laterality: Right - Second toe, dorsal Type of Debridement: Excisional debridement Anesthesia Used: 4% Lidocaine Solution Depth: Down to and including healthy tissue, in the subcutaneous layer Percentage of wound debrided: 100 Instrument Used: 7mm curette Severity: Fat Layer Exposed Amount of bleeding with debridement: Mild Bleeding Controlled with: Compression and gauze Patient tolerated procedure well Assessment/Plan Active Problems Swelling of right lower extremity (Chronic) Edema leg (Chronic) Venous hypertension, chronic, with inflammation (Chronic) Varicose veins with inflammation (Chronic) Chronic venous insufficiency (Chronic) History of ulcer of lower extremity (Chronic) Postphlebitic syndrome with inflammation (Chronic) Ulcer, pressure (Chronic) Assessment: This is a 68-year-old male with a long-standing history of chronic venous disease, as described above. He recently presented with an ulceration on the dorsum of the right great toe. This has extended to involve the adjacent right second toe dorsum. This appears to be pressure related, and likely due to ill fitted footwear. The ulceration on the dorsum of the right great toe is healed. It is suspected that the patient's shoes may be properly fitted, but with swelling which occurs at the end of each day, the shoes may become too tight, causing pressure phenomenon resulting in an ulceration. He claims to have been wearing his graduated compression stockings on a daily basis. He makes an effort to elevate his lower extremities frequently. He sleeps on a flat surface at night. 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 However, given the patient's history, and his recent presentation, it appears as though there is a level of noncompliance which is contributing to the patient's presenting manifestations. He continues to wear his work boots, despite admonitions to do otherwise. Although it does appear as though the patient has recently obtained alternative footwear of a larger size, complying with recommendations for offloading of the critical areas on the dorsum of the toes of the right foot. The swelling, edema, erythema noted in the distal right lower extremity and foot has improved, but does persist. Patient has recently undergone an x-ray of his right foot, which reveals no evidence of osteomyelitis. Plan: Debridement done as documented above. Procedure was well-tolerated. We will continue the use of Aquacel silver. This will be applied every other day. Patient is to continue elevating his lower extremities as much as possible. He is to avoid idle sitting and standing. Activity has been encouraged. He has been advised to continue wearing graduated compression stockings as previously prescribed. Appropriate footwear has also been recommended, to avoid pressure phenomenon. Because of continuing concerns as to offloading of the right foot, we have sought evaluation [facility] foot wear with proper offloading. The evaluation at [facility] has not yet been completed. Our staff will redouble efforts to arrange consultation. It must be sure that the patient is offloading properly, which may require alternative footwear. There is concern that the patient's work boots may be, in part, the source of the problem. The patient wears the same work boots he has had for many years. He wears them for 3-4 hours in the mornings, and 3-4 hours in the afternoons. Concern exists as to possible pressure phenomenon exerted by his work boots, which may be an impediment to the healing process. Our staff will contact [facility] to determine their recommendations, and to expedite the creation of appropriate footwear. Consideration had been given to the use of skin substitutes, but the location of the ulceration, given the contour and motion in this area, renders the use of a skin substitute somewhat undesirable. Patient will return in 1 week for reevaluation. The patient is not a smoker. Influenza vaccine was not administered today. The patient weighs 170 pounds. He stands 6 feet 0 inches tall. His BMI is 23.1, which is normal.
[2018-06-16 10:33] VITALS: BP 118/73; PULSE 71; RESP 18; TEMP 36.3
--- NOTE | 2018-06-16 11:34 | PCM.WC.HP ---
(1) Swelling of right lower extremity Status: Chronic Current Visit: Yes Code(s): M79.89 - Other specified soft tissue disorders (2) Edema leg Status: Chronic Current Visit: Yes Code(s): R60.0 - Localized edema (3) Parkinsons disease Status: Chronic Current Visit: No Code(s): G20 - Parkinson's disease (4) Venous hypertension, chronic, with inflammation Status: Chronic Current Visit: Yes Qualifiers: Laterality: bilateral Code(s): I87.329 - Chronic venous hypertension (idiopathic) with inflammation of unspecified lower extremity (5) Varicose veins with inflammation Status: Chronic Current Visit: Yes Code(s): I83.10 - Varicose veins of unspecified lower extremity with inflammation (6) Venous hypertension, chronic, with ulcer and inflammation Status: Resolved Current Visit: Yes Qualifiers: Code(s): I87.339 - Chronic venous hypertension (idiopathic) with ulcer and inflammation of unspecified lower extremity (7) Post-phlebitic dermatosis of right lower extremity Status: Resolved Current Visit: Yes Code(s): I87.091 - Postthrombotic syndrome with other complications of right lower extremity (8) Chronic venous insufficiency Status: Chronic Current Visit: Yes (9) History of ulcer of lower extremity Status: Chronic Current Visit: Yes Code(s): Z87.2 - Personal history of diseases of the skin and subcutaneous tissue (10) Postphlebitic syndrome with inflammation Status: Chronic Current Visit: Yes Code(s): I87.029 - Postthrombotic syndrome with inflammation of unspecified lower extremity (11) Ulcer, pressure Status: Chronic Current Visit: Yes Qualifiers: Pressure injury location: toe Pressure injury stage: stage 2 Laterality: right Qualified Code(s): L89.892 - Pressure ulcer of other site, stage 2 Code(s): L89.90 - Pressure ulcer of unspecified site, unspecified stage History of Present Illness Chief Complaint: Ulceration of the right second toe History of Wound: This is a 68-year-old male who presented with a one-month history of ulceration on the dorsum of his right great toe. Ulceration on the right great toe subsequently healed, we have been dealing most recently with an ulceration on the dorsum of the right second toe. This appears to be pressure related, likely due to poorly fitted shoes. The patient was not sure as to the etiology. He was suspicious, however, that this may be related to pressure from an-ill fitting shoe. The patient has a long-standing history of chronic venous disease. The patient suffers from chronic venous insufficiency, varicose veins with inflammation and ulceration, venous hypertension with inflammation, postphlebitic syndrome with inflammation, etc. He has been treated for a venous ulceration on the right lateral malleolus, which has healed. He has suffered from venous disease for many years. In April 2013 he underwent endovenous laser ablation of the right great saphenous vein, the right small saphenous vein, and the right accessory saphenous vein. A subsequent venous duplex examination two months later revealed successful ablation of the right great saphenous vein, small saphenous vein, and accessory saphenous vein. The patient subsequently presented with ulcerations which occurred on the right medial malleolus and on the dorsum of the right second toe. The ulceration near the right medial malleolus appeared to be related to the patient's chronic venous disease. The ulceration on the right second toe appeared to be related to pressure from poorly-fitted work boots. The ulceration on the right second toe appeared pressure related, stage II, and likely due to swelling of the foot while wearing work boots. The patient's wound subsequently healed, the patient was discharged for as needed follow-up. Patient has been wearing graduated compression stockings of 20-30 mmHg on a daily basis. 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 The patient had also been instructed to avoid idle standing and sitting. However, it is known that the patient is relatively noncompliant with recommended treatment measures. 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 A noninvasive lower extremity arterial study performed in 2012 was normal. More recently, and noninvasive lower extremity arterial study on April 07, 2018, was also normal. Past Medical History Past Medical History: Chronic Problems Swelling of right lower extremity (Chronic) Edema leg (Chronic) Parkinsons disease (Chronic) Venous hypertension, chronic, with inflammation (Chronic) Varicose veins with inflammation (Chronic) Chronic venous insufficiency (Chronic) History of ulcer of lower extremity (Chronic) Postphlebitic syndrome with inflammation (Chronic) Ulcer, pressure (Chronic) Surgical History: total knee arthroplasty, - - Patient underwent endovenous laser ablation of the right great saphenous vein, the right small saphenous vein, the right accessory saphenous vein on May 04, 2013. Allergies/Adverse Reactions: Allergies No Known Allergies Allergy (Verified 08/28/17 10:21) Home Medications: Ambulatory Orders Medication Instructions Recorded Carbidopa/Levodopa 50/200 [Sinemet 1 tablet PO BIDAC 08/28/17 CR] Warfarin Sodium [Coumadin] 9 mg PO DAILY 08/28/17 - Family History Maternal No pertinent history, - - Patient's father at the age of 92 of old age. Patient's mother at the age of 76 with a history of myocardial infarction. Smoking Status: Never smoker Tobacco Use: Non-smoker Review of Systems Constitutional: Denies: Chills, Fever, Weight Change Eyes: Denies: Pain, Vision Change HEENT: Denies: Difficulty Hearing, Difficulty Swallowing, Sinus Congestion Cardiovascular: Denies: Chest Pain, Palpitations Respiratory: Denies: Cough, Shortness of Breath Gastrointestinal: Denies: Diarrhea, Nausea, Vomiting Genitourinary: Denies: Dysuria, Hematuria Endocrine: Denies: Heat/ Cold Intolerance, Polydipsia, Polyuria Hematologic/ Lymphatic: Denies: Easy Bruising, Easy Bleeding - Physical Exam Vital Signs Temp Pulse Resp BP 97.3 F L 71 18 118/73 06/16/18 10:33 06/16/18 10:33 06/16/18 10:33 06/16/18 10:33 General: Alert, Oriented x3, Cooperative, No apparent distress, Well developed, Well nourished HEENT: Atraumatic, PERRLA, EOMI, Normocephalic Oral: Moist Mucosa Neck: No JVD Lungs: Normal air movement Abdomen: Non-Distended Extremities: No clubbing, No cyanosis, No Calf Tenderness, - - Mild swelling and edema persist in the right lower extremity. The ulceration on the dorsum of the right second toe persists, but is smaller in size. Dimensions are documented elsewhere. There is a moderate amount of bioburden. There is evidence of healthy granulation tissue. There is no sign of infection or cellulitis. The ulceration on the dorsum of the right great toe has reopened, but remains superficial. There is also a new ulceration on the right lateral foot. There is no sign of infection or cellulitis regarding any of these ulcerations. Dimensions are documented elsewhere. Skin: No rashes Wound Measurements and Assessment WC - Nurse 1 - General Ulcer Measurement Start: 05/26/18 10:04 Freq: Status: Active Protocol: Activity Type Activity Date Activity User E-Sign Co-Sign Detail Recorded Client Recorded Date Recorded By Document 06/16/18 10:21 DV [id number] 06/16/18 10:33 DV 06/16/18 10:21 Wound Center Nurse 1 [Ulcer Assessment] #15 Right Lateral Foot -Combined with other wound No -Current Size (cm) - Length 0.4 -Current Size (cm) - Width 0.2 -Current Size (cm) - Depth 0.1 -Total Square Cm 0.08 -Date of Last Picture (Recall this 06/16/18 field) -Photo Taken Yes -Epithelialization None Present -Tunneling No -Undermining/Tunneling No -Exudate Amt None Present (0 %) -Wound Margin Distinct, Outline Attached -Granulation Amt Medium (34-66%) -Slough/Fibrin Yes -Necrosis Amt Medium (34-66%) -Necrotic Tissue Type Adherent Slough -Structure Exposed None/Limited to Skin Breakdown -Texture (Tara-wound Skin Appearance) Assessed Localized Edema Scarring -Moisture (Tara-wound Skin Appearance Assessed ) -Color (Tara-wound Skin Appearance) Assessed Hemosiderin Staining -Temperature (Tara-wound Skin No Abnormality Appearance) (Pt Warm) -Tenderness on Palpation (Tara-wound Yes Skin Appearance) -Ulcer Cleansing Rinsed/ Irrigated with Saline -Foul Odor after Cleansing No -Anesthetic Used 5% Lidocaine Gel #14 Right Grt Toe Base -Combined with other wound No -Current Size (cm) - Length 0.2 -Current Size (cm) - Width 0.6 -Current Size (cm) - Depth 0.1 -Total Square Cm 0.12 -Date of Last Picture (Recall this 06/16/18 field) -Photo Taken Yes -Epithelialization None Present -Tunneling No -Undermining/Tunneling No -Circular Undermining No -Exudate Amt Small (1-33%) -Exudate Type Serosanguineous -Wound Margin Fibrotic Scar, Thickened Scar -Granulation Amt Small (1-33%) -Granulation Quality Ambrose -Slough/Fibrin Yes -Necrosis Amt Large (67-100%) -Necrotic Tissue Type Adherent Slough -Structure Exposed None/Limited to Skin Breakdown -Texture (Tara-wound Skin Appearance) Assessed Localized Edema Scarring -Moisture (Tara-wound Skin Appearance Maceration ) Weeping -Color (Tara-wound Skin Appearance) No Abnormality Assessed -Temperature (Tara-wound Skin No Abnormality Appearance) (Pt Warm) -Tenderness on Palpation (Tara-wound No Skin Appearance) -Ulcer Cleansing Rinsed/ Irrigated with Saline -Foul Odor after Cleansing No -Anesthetic Used 5% Lidocaine Gel 13-right 2nd toe cluster -Combined with other wound No -Current Size (cm) - Length 1.9 -Current Size (cm) - Width 1.1 -Current Size (cm) - Depth 0.1 -Total Square Cm 2.09 -Date of Last Picture (Recall this 06/16/18 field) -Photo Taken Yes -Epithelialization None Present -Tunneling No -Undermining/Tunneling No -Circular Undermining No -Exudate Amt Small (1-33%) -Exudate Type Serosanguineous -Wound Margin Fibrotic Scar, Thickened Scar -Granulation Amt Small (1-33%) -Granulation Quality Ambrose -Slough/Fibrin Yes -Necrosis Amt Large (67-100%) -Necrotic Tissue Type Adherent Slough -Structure Exposed None/Limited to Skin Breakdown -Texture (Tara-wound Skin Appearance) Assessed Localized Edema Scarring -Moisture (Tara-wound Skin Appearance Assessed ) Maceration Weeping -Color (Tara-wound Skin Appearance) Assessed Erythema -Temperature (Tara-wound Skin No Abnormality Appearance) (Pt Warm) -Tenderness on Palpation (Tara-wound Yes Skin Appearance) -Ulcer Cleansing Rinsed/ Irrigated with Saline -Foul Odor after Cleansing No -Anesthetic Used 5% Lidocaine Gel [Edema Assessment] -Lower Limb Edema Present Yes -Right Calf (cm) 35.0 -Right Ankle (cm) 25.0 WC - Nurse 2 - General Ulcer CM Notes Start: 05/26/18 10:04 Freq: Status: Active Protocol: Activity Type Activity Date Activity User E-Sign Co-Sign Detail Recorded Client Recorded Date Recorded By Document 06/16/18 11:24 SANJUANITA [id number] 06/16/18 11:27 SANJUANITA 06/16/18 11:24 Wound Center Nurse 2 [Procedure/Treatment] #15 Right Lateral Foot -Time 11:25 -Correct Patient Yes -Correct Side, Site, Position Yes -Correct Procedure Yes -Procedure Performed Yes -Type of Procedure Debridement -Clinical Debridement Subcutaneous -Post Debridement Size (cm) - Length 0.5 -Post Debridement Size (cm) - Width 0.3 -Post Debridement Size (cm) - Depth 0.1 -Total Square Cm 0.15 -Wound/Ulcer Outcome Not Healed -Ulcer Cleansing Rinsed/ Irrigated with Saline -Foul Odor after Cleansing No -Bioengineered Tissue No -Bleeding Controlled with NA -Treatment Response Procedure Tolerated Well #14 Right Grt Toe Base -Time 11:25 -Correct Patient Yes -Correct Side, Site, Position Yes -Correct Procedure Yes -Procedure Performed Yes -Type of Procedure Debridement -Clinical Debridement Subcutaneous -Post Debridement Size (cm) - Length 0.3 -Post Debridement Size (cm) - Width 0.7 -Post Debridement Size (cm) - Depth 0.1 -Total Square Cm 0.21 -Wound/Ulcer Outcome Not Healed -Ulcer Cleansing Rinsed/ Irrigated with Saline -Foul Odor after Cleansing No -Bioengineered Tissue No -Bleeding Controlled with NA -Treatment Response Procedure Tolerated Well 13-right 2nd toe cluster -Time 11:26 -Correct Patient Yes -Correct Side, Site, Position Yes -Correct Procedure Yes -Procedure Performed Yes -Type of Procedure Debridement -Clinical Debridement Subcutaneous -Post Debridement Size (cm) - Length 2.0 -Post Debridement Size (cm) - Width 1.2 -Post Debridement Size (cm) - Depth 0.1 -Total Square Cm 2.40 -Wound/Ulcer Outcome Not Healed -Ulcer Cleansing Rinsed/ Irrigated with Saline -Foul Odor after Cleansing No -Bioengineered Tissue No -Bleeding Controlled with NA -Treatment Response Procedure Tolerated Well [See Physician Procedure note for Specifics] Pain Scale: 0-10 Numeric [Pain] -Is Patient Pain Free? Yes Neurological: Cranial nerves II-XII grossly intact, Neuro grossly intact Psych/Mental Status: Normal Affect, Appropriate, Alert and oriented to time, place, person, mood and affect Debridement Note Post-Debridement Measurements/Treatment WC - Nurse 2 - General Ulcer CM Notes Start: 05/26/18 10:04 Freq: Status: Active Protocol: Activity Type Activity Date Activity User E-Sign Co-Sign Detail Recorded Client Recorded Date Recorded By Document 05/26/18 10:28 SANJUANITA [id number] 05/26/18 10:32 JS Document 06/02/18 12:00 SANJUANITA [id number] 06/02/18 12:00 JS Document 06/09/18 11:08 CS [id number] 06/09/18 11:09 CS Document 06/16/18 11:24 JS [id number] 06/16/18 11:27 JS 05/26/18 06/02/18 06/09/18 10:28 12:00 11:08 Wound Center Nurse 2 #15 Right Lateral Foot -Time -Correct Patient -Correct Side, Site, Position -Correct Procedure -Procedure Performed -Type of Procedure -Clinical Debridement -Post Debridement Size (cm) - Length -Post Debridement Size (cm) - Width -Post Debridement Size (cm) - Depth -Total Square Cm -Wound/Ulcer Outcome -Ulcer Cleansing -Foul Odor after Cleansing -Bioengineered Tissue -Bleeding Controlled with -Treatment Response #14 Right Grt Toe Base -Time -Correct Patient -Correct Side, Site, Position -Correct Procedure -Procedure Performed -Type of Procedure -Clinical Debridement -Post Debridement Size (cm) - Length -Post Debridement Size (cm) - Width -Post Debridement Size (cm) - Depth -Total Square Cm -Wound/Ulcer Outcome -Ulcer Cleansing -Foul Odor after Cleansing -Bioengineered Tissue -Bleeding Controlled with -Treatment Response 13-right 2nd toe cluster -Time 10:28 12:00 11:08 -Correct Patient Yes Yes Yes -Correct Side, Site, Position Yes Yes Yes -Correct Procedure Yes Yes Yes -Procedure Performed Yes Yes Yes -Type of Procedure Debridement Debridement Debridement -Clinical Debridement Subcutaneous Subcutaneous Subcutaneous -Post Debridement Size (cm) - Length 1.8 1.9 1.3 -Post Debridement Size (cm) - Width 1.1 1.1 1.8 -Post Debridement Size (cm) - Depth 0.2 0.2 0.2 -Total Square Cm 1.98 2.09 2.34 -Wound/Ulcer Outcome Not Healed Not Healed Not Healed -Ulcer Cleansing Rinsed/ Rinsed/ Not Cleansed Irrigated with Irrigated with Saline Saline -Foul Odor after Cleansing No No No -Bioengineered Tissue No No No -Topical Lidocaine (%) 4 -Bleeding Controlled with NA NA NA -Treatment Response Procedure Procedure Procedure Tolerated Well Tolerated Well Tolerated Well Pain Scale: 0-10 Numeric Is Patient Pain Free? Yes Yes Yes 06/16/18 11:24 Wound Center Nurse 2 #15 Right Lateral Foot -Time 11:25 -Correct Patient Yes -Correct Side, Site, Position Yes -Correct Procedure Yes -Procedure Performed Yes -Type of Procedure Debridement -Clinical Debridement Subcutaneous -Post Debridement Size (cm) - Length 0.5 -Post Debridement Size (cm) - Width 0.3 -Post Debridement Size (cm) - Depth 0.1 -Total Square Cm 0.15 -Wound/Ulcer Outcome Not Healed -Ulcer Cleansing Rinsed/ Irrigated with Saline -Foul Odor after Cleansing No -Bioengineered Tissue No -Bleeding Controlled with NA -Treatment Response Procedure Tolerated Well #14 Right Grt Toe Base -Time 11:25 -Correct Patient Yes -Correct Side, Site, Position Yes -Correct Procedure Yes -Procedure Performed Yes -Type of Procedure Debridement -Clinical Debridement Subcutaneous -Post Debridement Size (cm) - Length 0.3 -Post Debridement Size (cm) - Width 0.7 -Post Debridement Size (cm) - Depth 0.1 -Total Square Cm 0.21 -Wound/Ulcer Outcome Not Healed -Ulcer Cleansing Rinsed/ Irrigated with Saline -Foul Odor after Cleansing No -Bioengineered Tissue No -Bleeding Controlled with NA -Treatment Response Procedure Tolerated Well 13-right 2nd toe cluster -Time 11:26 -Correct Patient Yes -Correct Side, Site, Position Yes -Correct Procedure Yes -Procedure Performed Yes -Type of Procedure Debridement -Clinical Debridement Subcutaneous -Post Debridement Size (cm) - Length 2.0 -Post Debridement Size (cm) - Width 1.2 -Post Debridement Size (cm) - Depth 0.1 -Total Square Cm 2.40 -Wound/Ulcer Outcome Not Healed -Ulcer Cleansing Rinsed/ Irrigated with Saline -Foul Odor after Cleansing No -Bioengineered Tissue No -Topical Lidocaine (%) -Bleeding Controlled with NA -Treatment Response Procedure Tolerated Well Pain Scale: 0-10 Numeric Is Patient Pain Free? Yes Laterality: Right - Great toe, dorsum Type of Debridement: Excisional debridement Anesthesia Used: 4% Lidocaine Solution Depth: Down to and including healthy tissue, in the subcutaneous layer Percentage of wound debrided: 100 Instrument Used: 7mm curette Severity: Fat Layer Exposed Amount of bleeding with debridement: Mild Bleeding Controlled with: Compression and gauze Patient tolerated procedure well - Additional Wound Laterality: Right - Second toe, dorsum Type of Debridement: Excisional debridement Anesthesia Used: 4% Lidocaine Solution Depth: Down to and including healthy tissue, in the subcutaneous layer Percentage of wound debrided: 100 Instrument Used: 7mm curette Severity: Fat Layer Exposed Amount of bleeding with debridement: Mild Bleeding Controlled with: Compression and gauze Patient tolerated procedure: Patient tolerated procedure well - Additional Wound Laterality: Right - Lateral foot Type of Debridement: Excisional debridement Anesthesia Used: 4% Lidocaine Solution Depth: Down to and including healthy tissue, in the subcutaneous layer Percentage of wound debrided: 100 Instrument Used: 7mm curette Severity: Fat Layer Exposed Amount of bleeding with debridement: Mild Bleeding Controlled with: Compression and gauze Patient tolerated procedure: Patient tolerated procedure well Assessment/Plan Active Problems Swelling of right lower extremity (Chronic) Edema leg (Chronic) Venous hypertension, chronic, with inflammation (Chronic) Varicose veins with inflammation (Chronic) Chronic venous insufficiency (Chronic) History of ulcer of lower extremity (Chronic) Postphlebitic syndrome with inflammation (Chronic) Ulcer, pressure (Chronic) Assessment: This is a 68-year-old male with a long-standing history of chronic venous disease, as described above. He recently presented with an ulceration on the dorsum of the right great toe. This has extended to involve the adjacent right second toe dorsum. This appears to be pressure related, and likely due to ill fitted footwear. The ulceration on the dorsum of the right great toe had been healed, but has now reopened. There is now also an ulceration of the right lateral foot, which is less than 1 week old. This may be related to a new pair of work boots which the patient has recently started wearing. It is suspected that the patient's shoes may be properly fitted, but with swelling which occurs at the end of each day, the shoes may become too tight, causing pressure phenomenon resulting in ulcerations. He claims to have been wearing his graduated compression stockings on a daily basis. He makes an effort to elevate his lower extremities frequently. He sleeps on a flat surface at night. 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 However, given the patient's history, and his recent presentation, it appears as though there is a level of noncompliance which is contributing to the patient's presenting manifestations. The swelling, edema, and erythema noted in the distal right lower extremity and foot has improved, but does persist. Patient has recently undergone an x-ray of his right foot, which reveals no evidence of osteomyelitis. Plan: Debridement done as documented above. Procedure was well-tolerated. We will use hydrogel topically with respect to each of the patient's ulcerations. This will be applied daily. Patient is to continue elevating his lower extremities as much as possible. He is to avoid idle sitting and standing. Activity has been encouraged. He has been advised to continue wearing graduated compression stockings as previously prescribed. Appropriate footwear has also been recommended, to avoid pressure phenomenon. Because of continuing concerns as to offloading of the right foot, we have sought evaluation at [facility] for fitting of foot wear with proper offloading. The evaluation at [facility] has been scheduled for June 30. Concern exists as to possible pressure phenomenon exerted by his work boots, which may be an impediment to the healing process. Consideration had been given to the use of skin substitutes, but the location of the ulceration, given the contour and motion in this area, renders the use of a skin substitute somewhat undesirable. Patient will return in 1 week for reevaluation. The patient is not a smoker. Influenza vaccine was not administered today. The patient weighs 170 pounds. He stands 6 feet 0 inches tall. His BMI is 23.1, which is normal.
== END 2018-06-21 23:59 ==
LOC: WC 10:15
PROVIDERS: Family Provider Family Medicine; PCP Family Medicine; Visit Provider Surgery
DX: I83.215 Varicose veins of right lower extremity with both ulcer other part of foot and inflammation (principal); R60.0 Localized edema; M79.89 Other specified soft tissue disorders; G20 Parkinson's disease; Z91.19 Patient's noncompliance with other medical treatment and regimen; L89.892 Pressure ulcer of other site, stage 2; L97.512 Non-pressure chronic ulcer of other part of right foot with fat layer exposed
CPT/HCPCS: 11042; 99213; G0463

== ENCOUNTER 2018-07-14 10:30 | Outpatient (RCR) | payer SELFPAY ==
[2018-06-22 01:01] VITALS: BP 118/73; PULSE 71; RESP 18; TEMP 36.3
[2018-06-30 10:37] VITALS: BP 129/72; PULSE 64; RESP 18; TEMP 36.2
--- NOTE | 2018-06-30 11:00 | PCM.WC.HP ---
(1) Swelling of right lower extremity Status: Chronic Code(s): M79.89 - Other specified soft tissue disorders (2) Edema leg Status: Chronic Code(s): R60.0 - Localized edema (3) Ulcer of great toe Status: Chronic Qualifiers: Laterality: right Non-pressure ulcer stage: with fat layer exposed Qualified Code(s): L97.512 - Non-pressure chronic ulcer of other part of right foot with fat layer exposed Code(s): L97.509 - Non-pressure chronic ulcer of other part of unspecified foot with unspecified severity (4) Parkinsons disease Status: Chronic Code(s): G20 - Parkinson's disease (5) Venous hypertension, chronic, with inflammation Status: Chronic Qualifiers: Laterality: bilateral Code(s): I87.329 - Chronic venous hypertension (idiopathic) with inflammation of unspecified lower extremity (6) Varicose veins with inflammation Status: Chronic Code(s): I83.10 - Varicose veins of unspecified lower extremity with inflammation (7) Venous hypertension, chronic, with ulcer and inflammation Status: Resolved Qualifiers: Code(s): I87.339 - Chronic venous hypertension (idiopathic) with ulcer and inflammation of unspecified lower extremity (8) Post-phlebitic dermatosis of right lower extremity Status: Resolved Code(s): I87.091 - Postthrombotic syndrome with other complications of right lower extremity (9) Varicose veins with ulcer and inflammation Status: Resolved Code(s): I83.209 - Varicose veins of unspecified lower extremity with both ulcer of unspecified site and inflammation; L97.909 - Non-pressure chronic ulcer of unspecified part of unspecified lower leg with unspecified severity (10) Chronic venous insufficiency Status: Chronic (11) Venous ulcer of ankle Status: Resolved Qualifiers: Code(s): I83.003 - Varicose veins of unspecified lower extremity with ulcer of ankle (12) Venous ulcer of right lower extremity with varicose veins Status: Resolved Code(s): I83.019 - Varicose veins of right lower extremity with ulcer of unspecified site (13) History of ulcer of lower extremity Status: Chronic Code(s): Z87.2 - Personal history of diseases of the skin and subcutaneous tissue (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 Ulceration on the right great toe subsequently healed, and we have been dealing most recently with an ulceration on the dorsum of the right second toe. This appears to be pressure related, likely due to poorly fitted shoes. The patient was not sure as to the etiology. He was suspicious, however, that this may be related to pressure from an-ill fitting shoe. The patient has a long-standing history of chronic venous disease. The patient suffers from chronic venous insufficiency, varicose veins with inflammation and ulceration, venous hypertension with inflammation, postphlebitic syndrome with inflammation, etc. He has been treated for a venous ulceration on the right lateral malleolus, which has healed. He has suffered from venous disease for many years. In April 2013 he underwent endovenous laser ablation of the right great saphenous vein, the right small saphenous vein, and the right accessory saphenous vein. A subsequent venous duplex examination two months later revealed successful ablation of the right great saphenous vein, small saphenous vein, and accessory saphenous vein. The patient subsequently presented with ulcerations which occurred on the right medial malleolus and on the dorsum of the right second toe. The ulceration near the right medial malleolus appeared to be related to the patient's chronic venous disease. The ulceration on the right second toe appeared to be related to pressure from poorly-fitted work boots. The ulceration on the right second toe appeared pressure related, stage II, and likely due to swelling of the foot while wearing work boots. The patient's wound subsequently healed, the patient was discharged for as needed follow-up. Patient has been wearing graduated compression stockings of 20-30 mmHg on a daily basis. 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 The patient had also been instructed to avoid idle standing and sitting. However, it is known that the patient is relatively noncompliant with recommended treatment measures. 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 A noninvasive lower extremity arterial study performed in 2012 was normal. More recently, and noninvasive lower extremity arterial study on April 07, 2018, was also normal. At present, we are treating ulcerations on the dorsum of the right great toe, the right second toe, and the right lateral foot. Each appears related to swelling in the right foot, which has resulted in pressure points within his foot wear. An appointment with [facility] has been pending for quite some time. Past Medical History Past Medical History: Chronic Problems Swelling of right lower extremity (Chronic) Edema leg (Chronic) Ulcer of great toe (Chronic) Parkinsons disease (Chronic) Venous hypertension, chronic, with inflammation (Chronic) Varicose veins with inflammation (Chronic) Chronic venous insufficiency (Chronic) History of ulcer of lower extremity (Chronic) Postphlebitic syndrome with inflammation (Chronic) Ulcer, pressure (Chronic) Surgical History: total knee arthroplasty, - - Patient underwent endovenous laser ablation of the right great saphenous vein, the right small saphenous vein, the right accessory saphenous vein on May 04, 2013. Allergies/Adverse Reactions: Allergies No Known Allergies Allergy (Verified 08/28/17 10:21) Home Medications: Ambulatory Orders Medication Instructions Recorded Carbidopa/Levodopa 50/200 [Sinemet 1 tablet PO BIDAC 08/28/17 CR] Warfarin Sodium [Coumadin] 9 mg PO DAILY 08/28/17 - Family History Maternal No pertinent history, - - Patient's father at the age of 92 of old age. Patient's mother at the age of 76 with a history of myocardial infarction. Smoking Status: Never smoker Tobacco Use: Non-smoker Review of Systems Constitutional: Denies: Chills, Fever, Weight Change Eyes: Denies: Pain, Vision Change HEENT: Denies: Difficulty Hearing, Difficulty Swallowing, Sinus Congestion Cardiovascular: Denies: Chest Pain, Palpitations Respiratory: Denies: Cough, Shortness of Breath Gastrointestinal: Denies: Diarrhea, Nausea, Vomiting Genitourinary: Denies: Dysuria, Hematuria Endocrine: Denies: Heat/ Cold Intolerance, Polydipsia, Polyuria Hematologic/ Lymphatic: Denies: Easy Bruising, Easy Bleeding - Physical Exam Vital Signs Temp Pulse Resp BP 97.1 F L 64 18 129/72 H 06/30/18 10:37 06/30/18 10:37 06/30/18 10:37 06/30/18 10:37 General: Alert, Oriented x3, Cooperative, No apparent distress, Well developed, Well nourished HEENT: Atraumatic, PERRLA, EOMI, Normocephalic Oral: Moist Mucosa Neck: No JVD Lungs: Normal air movement Abdomen: Non-Distended Extremities: No clubbing, No cyanosis, No Calf Tenderness, - - Swelling and edema persists in the patient's distal right lower extremity and on the right foot. The ulcerations on the dorsum of the right great toe and the right second toe, and that on the lateral aspect of the right foot, are markedly improved. There is evidence of peripheral epithelialization. Each of the ulcerations is smaller in size. Dimensions are documented elsewhere. There is a small amount of bioburden. There is no sign of infection or cellulitis. Skin: No rashes Wound Measurements and Assessment WC - Nurse 1 - General Ulcer Measurement Start: 06/30/18 10:37 Freq: Status: Active Protocol: Activity Type Activity Date Activity User E-Sign Co-Sign Detail Recorded Client Recorded Date Recorded By Document 06/30/18 10:37 DL [id number] 06/30/18 10:53 DL 06/30/18 10:37 Wound Center Nurse 1 [Ulcer Assessment] #15 Right Lateral Foot -Current Size (cm) - Length 0.7 -Current Size (cm) - Width 0.2 -Current Size (cm) - Depth 0.2 -Total Square Cm 0.14 -Photo Taken No -Exudate Amt Small (1-33%) -Exudate Type Serosanguineous -Wound Margin Thickened -Granulation Amt Large (67-100%) -Granulation Quality [place] -Necrosis Amt Small (1-33%) -Necrotic Tissue Type Adherent Slough -Structure Exposed N/A -Texture (Tara-wound Skin Appearance) Scarring -Moisture (Tara-wound Skin Appearance No Abnormality ) Weeping -Color (Tara-wound Skin Appearance) Hemosiderin Staining -Temperature (Tara-wound Skin No Abnormality Appearance) (Pt Warm) -Ulcer Cleansing Rinsed/ Irrigated with Saline -Foul Odor after Cleansing No -Anesthetic Used 4% Lidocaine Solution #14 Right Grt Toe Base -Current Size (cm) - Length 0.3 -Current Size (cm) - Width 0.2 -Current Size (cm) - Depth 0.1 -Total Square Cm 0.06 -Photo Taken No -Exudate Amt Small (1-33%) -Exudate Type Serosanguineous -Wound Margin Thickened -Granulation Amt Small (1-33%) -Granulation Quality [place] -Necrosis Amt Small (1-33%) -Necrotic Tissue Type Adherent Slough -Structure Exposed N/A -Texture (Tara-wound Skin Appearance) Localized Edema Scarring -Color (Tara-wound Skin Appearance) No Abnormality Hemosiderin Staining -Temperature (Tara-wound Skin No Abnormality Appearance) (Pt Warm) -Tenderness on Palpation (Tara-wound No Skin Appearance) -Ulcer Cleansing Rinsed/ Irrigated with Saline -Foul Odor after Cleansing No -Anesthetic Used 4% Lidocaine Solution #13-right 2nd toe cluster -Current Size (cm) - Length 0.9 -Current Size (cm) - Width 1 -Current Size (cm) - Depth 0.1 -Total Square Cm 0.9 -Photo Taken No -Exudate Amt Small (1-33%) -Exudate Type Serosanguineous -Wound Margin Thickened -Granulation Amt Medium (34-66%) -Granulation Quality [place] -Necrosis Amt Medium (34-66%) -Necrotic Tissue Type Adherent Slough -Structure Exposed N/A -Texture (Tara-wound Skin Appearance) Localized Edema Scarring -Moisture (Tara-wound Skin Appearance No Abnormality ) -Color (Tara-wound Skin Appearance) Hemosiderin Staining -Temperature (Tara-wound Skin No Abnormality Appearance) (Pt Warm) -Ulcer Cleansing Rinsed/ Irrigated with Saline -Foul Odor after Cleansing No -Anesthetic Used 4% Lidocaine Solution [Edema Assessment] -Right Calf (cm) 36 -Right Ankle (cm) 20.5 WC - Nurse 2 - General Ulcer CM Notes Start: 06/30/18 10:37 Freq: Status: Active Protocol: Activity Type Activity Date Activity User E-Sign Co-Sign Detail Recorded Client Recorded Date Recorded By Document 06/30/18 10:56 SANJUANITA [id number] 06/30/18 10:59 SANJUANITA 06/30/18 10:56 Wound Center Nurse 2 [Procedure/Treatment] #15 Right Lateral Foot -Time 10:56 -Correct Patient Yes -Correct Side, Site, Position Yes -Correct Procedure Yes -Procedure Performed Yes -Type of Procedure Debridement -Clinical Debridement Subcutaneous -Post Debridement Size (cm) - Length 1.2 -Post Debridement Size (cm) - Width 0.3 -Post Debridement Size (cm) - Depth 0.1 -Total Square Cm 0.36 -Wound/Ulcer Outcome Not Healed -Ulcer Cleansing Rinsed/ Irrigated with Saline -Foul Odor after Cleansing No -Bioengineered Tissue No -Bleeding Controlled with NA -Treatment Response Procedure Tolerated Well #14 Right Grt Toe Base -Time 10:57 -Post Debridement Size (cm) - Length 0.2 -Post Debridement Size (cm) - Width 0.8 -Post Debridement Size (cm) - Depth 0.1 -Total Square Cm 0.16 #13-right 2nd toe cluster -Time 10:58 -Correct Patient Yes -Correct Side, Site, Position Yes -Correct Procedure Yes -Procedure Performed Yes -Type of Procedure Debridement -Clinical Debridement Subcutaneous -Post Debridement Size (cm) - Length 1.3 -Post Debridement Size (cm) - Width 1.2 -Post Debridement Size (cm) - Depth 0.1 -Total Square Cm 1.56 -Wound/Ulcer Outcome Not Healed -Ulcer Cleansing Rinsed/ Irrigated with Saline -Foul Odor after Cleansing No -Bioengineered Tissue No -Bleeding Controlled with NA -Treatment Response Procedure Tolerated Well [See Physician Procedure note for Specifics] Pain Scale: 0-10 Numeric [Pain] -Is Patient Pain Free? Yes Neurological: Cranial nerves II-XII grossly intact, Neuro grossly intact Psych/Mental Status: Normal Affect, Appropriate, Alert and oriented to time, place, person, mood and affect Debridement Note Post-Debridement Measurements/Treatment WC - Nurse 2 - General Ulcer CM Notes Start: 06/30/18 10:37 Freq: Status: Active Protocol: Activity Type Activity Date Activity User E-Sign Co-Sign Detail Recorded Client Recorded Date Recorded By Document 06/30/18 10:56 [email or web address] [id number] 06/30/18 10:59 SANJUANITA 06/30/18 10:56 Wound Center Nurse 2 #15 Right Lateral Foot -Time 10:56 -Correct Patient Yes -Correct Side, Site, Position Yes -Correct Procedure Yes -Procedure Performed Yes -Type of Procedure Debridement -Clinical Debridement Subcutaneous -Post Debridement Size (cm) - Length 1.2 -Post Debridement Size (cm) - Width 0.3 -Post Debridement Size (cm) - Depth 0.1 -Total Square Cm 0.36 -Wound/Ulcer Outcome Not Healed -Ulcer Cleansing Rinsed/ Irrigated with Saline -Foul Odor after Cleansing No -Bioengineered Tissue No -Bleeding Controlled with NA -Treatment Response Procedure Tolerated Well #14 Right Grt Toe Base -Time 10:57 -Post Debridement Size (cm) - Length 0.2 -Post Debridement Size (cm) - Width 0.8 -Post Debridement Size (cm) - Depth 0.1 -Total Square Cm 0.16 #13-right 2nd toe cluster -Time 10:58 -Correct Patient Yes -Correct Side, Site, Position Yes -Correct Procedure Yes -Procedure Performed Yes -Type of Procedure Debridement -Clinical Debridement Subcutaneous -Post Debridement Size (cm) - Length 1.3 -Post Debridement Size (cm) - Width 1.2 -Post Debridement Size (cm) - Depth 0.1 -Total Square Cm 1.56 -Wound/Ulcer Outcome Not Healed -Ulcer Cleansing Rinsed/ Irrigated with Saline -Foul Odor after Cleansing No -Bioengineered Tissue No -Bleeding Controlled with NA -Treatment Response Procedure Tolerated Well Pain Scale: 0-10 Numeric Is Patient Pain Free? Yes Laterality: Right - Great toe, dorsum Type of Debridement: Excisional debridement Anesthesia Used: 4% Lidocaine Solution Depth: Down to and including healthy tissue, in the subcutaneous layer Percentage of wound debrided: 100 Instrument Used: 7mm curette Severity: Fat Layer Exposed Amount of bleeding with debridement: Mild Bleeding Controlled with: Compression and gauze Patient tolerated procedure well - Additional Wound Laterality: Right - Second toe, dorsum Anesthesia Used: 4% Lidocaine Solution Depth: Down to and including healthy tissue, in the subcutaneous layer Percentage of wound debrided: 100 Instrument Used: 7mm curette Severity: Fat Layer Exposed Amount of bleeding with debridement: Mild Bleeding Controlled with: Compression and gauze Patient tolerated procedure: Patient tolerated procedure well - Additional Wound Laterality: Right - Lateral foot Type of Debridement: Excisional debridement Anesthesia Used: 4% Lidocaine Solution Depth: Down to and including healthy tissue, in the subcutaneous layer Percentage of wound debrided: 100 Instrument Used: 7mm curette Severity: Fat Layer Exposed Amount of bleeding with debridement: Mild Bleeding Controlled with: Compression and gauze Patient tolerated procedure: Patient tolerated procedure well Assessment/Plan Assessment: This is a 68-year-old male with a long-standing history of chronic venous disease, as described above. He recently presented with an ulceration on the dorsum of the right great toe. This has extended to involve the adjacent right second toe dorsum. This appears to be pressure related, and likely due to ill fitted footwear. The ulceration on the dorsum of the right great toe had been healed, but has now reopened. There is now also an ulceration of the right lateral foot. This may be related to a new pair of work boots which the patient has recently started wearing. It is suspected that the patient's shoes may be properly fitted, but with swelling which occurs at the end of each day, the shoes may become too tight, causing pressure phenomenon resulting in ulcerations. He claims to have been wearing his graduated compression stockings on a daily basis. He makes an effort to elevate his lower extremities frequently. He sleeps on a flat surface at night. 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 However, given the patient's history, and his recent presentation, it appears as though there is a level of noncompliance which is contributing to the patient's presenting manifestations. The swelling, edema, and erythema noted in the distal right lower extremity and foot has improved, but does persist. Patient has recently undergone an x-ray of his right foot, which reveals no evidence of osteomyelitis. Plan: Debridement done as documented above. Procedure was well-tolerated. We will use hydrogel topically with respect to each of the patient's ulcerations. This will be applied daily. Patient is to continue elevating his lower extremities as much as possible. He is to avoid idle sitting and standing. Activity has been encouraged. He has been advised to continue wearing graduated compression stockings as previously prescribed. Appropriate footwear has also been recommended, to avoid pressure phenomenon. Because of continuing concerns as to offloading of the right foot, we have sought evaluation at [facility] for fitting of foot wear with proper offloading. The evaluation at [facility] had been scheduled for June 30, but has been rescheduled to July 12, due to the patient's need to attend a . Concern exists as to possible pressure phenomenon exerted by his work boots, which may be an impediment to the healing process. Consideration had been given to the use of skin substitutes, but the location of the ulceration, given the contour and motion in this area, renders the use of a skin substitute somewhat undesirable. Patient will return in 1 week for reevaluation. The patient is not a smoker. Influenza vaccine was not administered today. The patient weighs 170 pounds. He stands 6 feet 0 inches tall. His BMI is 23.1, which is normal.
[2018-07-14 10:25] VITALS: BP 128/67; PULSE 72; RESP 18; TEMP 36.6
--- NOTE | 2018-07-14 11:07 | HP.PCM_ITS ---
(1) Swelling of right lower extremity Status: Chronic Current Visit: Yes Code(s): M79.89 - Other specified soft tissue disorders (2) Edema leg Status: Chronic Current Visit: Yes Code(s): R60.0 - Localized edema (3) Ulcer of great toe Status: Chronic Current Visit: Yes Qualifiers: Laterality: right Non-pressure ulcer stage: with fat layer exposed Qualified Code(s): L97.512 - Non-pressure chronic ulcer of other part of right foot with fat layer exposed Code(s): L97.509 - Non-pressure chronic ulcer of other part of unspecified foot with unspecified severity (4) Parkinsons disease Status: Chronic Current Visit: No Code(s): G20 - Parkinson's disease (5) Venous hypertension, chronic, with inflammation Status: Chronic Current Visit: Yes Qualifiers: Laterality: bilateral Code(s): I87.329 - Chronic venous hypertension (idiopathic) with inflammation of unspecified lower extremity (6) Varicose veins with inflammation Status: Chronic Current Visit: Yes Code(s): I83.10 - Varicose veins of unspecified lower extremity with inflammation (7) Venous hypertension, chronic, with ulcer and inflammation Status: Resolved Current Visit: Yes Qualifiers: Laterality: right Qualified Code(s): I87.331 - Chronic venous hypertension (idiopathic) with ulcer and inflammation of right lower extremity; L97.919 - Non-pressure chronic ulcer of unspecified part of right lower leg with unspecified severity Code(s): I87.339 - Chronic venous hypertension (idiopathic) with ulcer and inflammation of unspecified lower extremity (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 Current Visit: Yes Code(s): I87.091 - Postthrombotic syndrome with other complications of right lower extremity (9) Varicose veins with ulcer and inflammation Status: Chronic Current Visit: Yes Code(s): I83.209 - Varicose veins of unspecified lower extremity with both ulcer of unspecified site and inflammation; L97.909 - Non-pressure chronic ulcer of unspecified part of unspecified lower leg with unspecified severity (10) Chronic venous insufficiency Status: Chronic Current Visit: Yes (11) Venous ulcer of ankle Status: Resolved Current Visit: Yes Qualifiers: Laterality: right Code(s): I83.003 - Varicose veins of unspecified lower extremity with ulcer of ankle (12) Venous ulcer of right lower extremity with varicose veins Status: Chronic Current Visit: Yes Code(s): I83.019 - Varicose veins of right lower extremity with ulcer of unspecified site (13) History of ulcer of lower extremity Status: Chronic Current Visit: Yes Code(s): Z87.2 - Personal history of diseases of the skin and subcutaneous tissue (14) Postphlebitic syndrome with inflammation Status: Chronic Current Visit: Yes Code(s): I87.029 - Postthrombotic syndrome with inflammation of unspecified lower extremity (15) Ulcer, pressure Status: Chronic Current Visit: Yes Qualifiers: Pressure injury location: toe Pressure injury stage: stage 2 Code(s): L89.90 - Pressure ulcer of unspecified site, unspecified stage History of Present Illness Chief Complaint: Ulceration of the right second toe, great toe, and right lateral foot; venous ulceration of the right medial malleolus History of Wound: This is a 68-year-old male who presented with a one-month history of ulceration on the dorsum of his right great toe. Ulceration on the right great toe subsequently healed, and we have been dealing most recently with an ulceration on the dorsum of the right second toe. This appears to be pr essure related, likely due to poorly fitted shoes. The patient was not sure as to the etiology. He was suspicious, however, that this may be related to pressure from an-ill fitting shoe. The patient has a long-standing history of chronic venous disease. The patient suffers from chronic venous insufficiency, varicose veins with inflammation and ulceration, venous hypertension with inflammation, postphlebitic syndrome with inflammation, etc. He has been treated for a venous ulceration on the right lateral malleolus, which has healed. He has suffered from venous disease for many years. In April 2013 he underwent endovenous laser ablation of the right great saphenous vein, the right small saphenous vein, and the right accessory saphenous vein. A subsequent venous duplex examination two months later revealed successful ablation of the right great saphenous vein, small saphenous vein, and accessory saphenous vein. The patient subsequently presented with ulcerations which occurred on the right medial malleolus and on the dorsum of the right second toe. The ulceration near the right medial malleolus appeared to be related to the patient's chronic venous disease. The ulceration on the right second toe appeared to be related to pressure from poorly-fitted work boots. The ulceration on the right second toe appeared pressure related, stage II, and likely due to swelling of the foot while wearing work boots. The patient's wound subsequently healed, the patient was discharged for as needed follow-up. Patient has been wearing graduated compression stockings of 20-30 mmHg on a daily basis. 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 The patient had also been instructed to avoid idle standing and sitting. However, it is known that the patient is relatively noncompliant with recommended treatment measures. 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 A noninvasive lower extremity arterial study performed in 2012 was normal. More recently, and noninvasive lower extremity arterial study on April 07, 2018, was also normal. At present, we are treating ulcerations on the dorsum of the right great toe, the right second toe, and the right lateral foot. Ulceration on the dorsum of the right great toe appears to have healed. Patient now has a new ulceration near the right medial malleolus. An appointment with [facility] occurred yesterday, though no documentation has been received. 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 Allergies/Adverse Reactions: Allergies No Known Allergies Allergy (Verified 08/28/17 10:21) Home Medications: Ambulatory Orders Medication Instructions Recorded Carbidopa/Levodopa 50/200 [Sinemet 1 tablet PO BIDAC 08/28/17 CR] Warfarin Sodium [Coumadin] 9 mg PO DAILY 08/28/17 - Family History Maternal No pertinent history, - - Patient's father at the age of 92 of old age. Patient's mother at the age of 76 with a history of myocardial infarction. Smoking Status: Never smoker Tobacco Use: Non-smoker Review of Systems Constitutional: Denies: Chills, Fever, Weight Change Eyes: Denies: Pain, Vision Change HEENT: Denies: Difficulty Hearing, Difficulty Swallowing, Sinus Congestion Cardiovascular: Denies: Chest Pain, Palpitations Respiratory: Denies: Cough, Shortness of Breath Gastrointestinal: Denies: Diarrhea, Nausea, Vomiting Genitourinary: Denies: Dysuria, Hematuria Endocrine: Denies: Heat/ Cold Intolerance, Polydipsia, Polyuria Hematologic/ Lymphatic: Denies: Easy Bruising, Easy Bleeding - Physical Exam Vital Signs Temp Pulse Resp BP 97.8 F 72 18 128/67 H 07/14/18 10:25 07/14/18 10:25 07/14/18 10:25 07/14/18 10:25 General: Alert, Oriented x3, Cooperative, No apparent distress, Well developed, Well nourished HEENT: Atraumatic, PERRLA, EOMI, Normocephalic Oral: Moist Mucosa Neck: No JVD Lungs: Normal air movement Abdomen: Non-Distended Extremities: No clubbing, No cyanosis, No Calf Tenderness, - - Moderate swelling and edema is noted in the right distal lower extremity in the right foot. Ulcerations are noted on the dorsum of the right second toe. The ulceration on the dorsum of the right great toe appears to have completely healed. There is an ulceration on the right lateral foot, which is relatively small in size. A new ulceration has occurred near the right medial malleolus since the patient's last visit. There is no sign of infection or cellulitis related to any of these ulcerations. A moderate amount of bioburden is present at each. Dimensions are documented elsewhere. Chronic venous changes are noted in the distal right lower extremity. This includes hyperpigmentation in the gaiter area. Patient is also noted to have multiple large varicosities. Wound Measurements and Assessment WC - Nurse 1 - General Ulcer Measurement Start: 06/30/18 10:37 Freq: Status: Active Protocol: Activity Type Activity Date Activity User E-Sign Co-Sign Detail Recorded Client Recorded Date Recorded By Document 07/14/18 10:25 DL [id number] 07/14/18 10:47 DL 07/14/18 10:25 Wound Center Nurse 1 [Ulcer Assessment] #16 R Med Ankle -Current Size (cm) - Length 0.6 -Current Size (cm) - Width 1.4 -Current Size (cm) - Depth 0.1 -Total Square Cm 0.84 -Photo Taken Yes -Exudate Amt Small (1-33%) -Exudate Type Serosanguineous -Wound Margin Thickened -Granulation Amt Small (1-33%) -Granulation Quality [place] -Necrosis Amt Small (1-33%) -Necrotic Tissue Type Adherent Slough -Structure Exposed N/A -Texture (Tara-wound Skin Appearance) Localized Edema Scarring -Moisture (Tara-wound Skin Appearance Weeping ) -Color (Tara-wound Skin Appearance) Erythema Hemosiderin Staining -Temperature (Tara-wound Skin No Abnormality Appearance) (Pt Warm) -Tenderness on Palpation (Tara-wound No Skin Appearance) -Ulcer Cleansing Wound Cleanser -Foul Odor after Cleansing No -Anesthetic Used 4% Lidocaine Solution #15 Right Lateral Foot -Current Size (cm) - Length 0.6 -Current Size (cm) - Width 0.2 -Current Size (cm) - Depth 0.2 -Total Square Cm 0.12 -Photo Taken Yes -Exudate Amt Small (1-33%) -Exudate Type Serosanguineous -Wound Margin Flat & Intact -Granulation Amt Small (1-33%) -Granulation Quality [place] -Necrosis Amt Small (1-33%) -Necrotic Tissue Type Adherent Slough -Structure Exposed N/A -Texture (Tara-wound Skin Appearance) Excoriation Localized Edema Scarring -Moisture (Tara-wound Skin Appearance Weeping ) -Color (Tara-wound Skin Appearance) Erythema Hemosiderin Staining -Temperature (Tara-wound Skin No Abnormality Appearance) (Pt Warm) -Ulcer Cleansing Wound Cleanser -Foul Odor after Cleansing No -Anesthetic Used 4% Lidocaine Solution #14 Right Grt Toe Base -Current Size (cm) - Length 0.1 -Current Size (cm) - Width 0.1 -Current Size (cm) - Depth 0.1 -Total Square Cm 0.01 -Photo Taken Yes -Exudate Amt None Present (0 %) -Wound Margin Flat & Intact -Granulation Amt Large (67-100%) -Granulation Quality [place] -Structure Exposed N/A -Texture (Tara-wound Skin Appearance) Excoriation Localized Edema Scarring -Moisture (Tara-wound Skin Appearance Dry/Scaly ) -Color (Tara-wound Skin Appearance) Erythema Hemosiderin Staining -Temperature (Tara-wound Skin No Abnormality Appearance) (Pt Warm) -Ulcer Cleansing Wound Cleanser -Foul Odor after Cleansing No -Anesthetic Used 4% Lidocaine Solution #13-right 2nd toe cluster -Current Size (cm) - Length 0.5 -Current Size (cm) - Width 0.3 -Current Size (cm) - Depth 0.2 -Total Square Cm 0.15 -Photo Taken Yes -Exudate Amt Small (1-33%) -Exudate Type Serosanguineous -Wound Margin Thickened -Granulation Amt Small (1-33%) -Granulation Quality [place] -Necrosis Amt Small (1-33%) -Necrotic Tissue Type Adherent Slough -Structure Exposed N/A -Texture (Tara-wound Skin Appearance) Localized Edema Scarring -Moisture (Tara-wound Skin Appearance Dry/Scaly ) -Color (Tara-wound Skin Appearance) Erythema Hemosiderin Staining -Temperature (Tara-wound Skin No Abnormality Appearance) (Pt Warm) -Tenderness on Palpation (Tara-wound No Skin Appearance) -Ulcer Cleansing Wound Cleanser -Foul Odor after Cleansing No -Anesthetic Used 4% Lidocaine Solution [Edema Assessment] -Right Calf (cm) 38 -Right Ankle (cm) 23 Neurological: Cranial nerves II-XII grossly intact, Neuro grossly intact Psych/Mental Status: Normal Affect, Appropriate, Alert and oriented to time, place, person, mood and affect Debridement Note Post-Debridement Measurements/Treatment WC - Nurse 2 - General Ulcer CM Notes Start: 06/30/18 10:37 Freq: Status: Active Protocol: Activity Type Activity Date Activity User E-Sign Co-Sign Detail Recorded Client Recorded Date Recorded By Document 06/30/18 10:56 [email or web address] [id number] 06/30/18 10:59 SANJUANITA 06/30/18 10:56 Wound Center Nurse 2 #15 Right Lateral Foot -Time 10:56 -Correct Patient Yes -Correct Side, Site, Position Yes -Correct Procedure Yes -Procedure Performed Yes -Type of Procedure Debridement -Clinical Debridement Subcutaneous -Post Debridement Size (cm) - Length 1.2 -Post Debridement Size (cm) - Width 0.3 -Post Debridement Size (cm) - Depth 0.1 -Total Square Cm 0.36 -Wound/Ulcer Outcome Not Healed -Ulcer Cleansing Rinsed/ Irrigated with Saline -Foul Odor after Cleansing No -Bioengineered Tissue No -Bleeding Controlled with NA -Treatment Response Procedure Tolerated Well #14 Right Grt Toe Base -Time 10:57 -Post Debridement Size (cm) - Length 0.2 -Post Debridement Size (cm) - Width 0.8 -Post Debridement Size (cm) - Depth 0.1 -Total Square Cm 0.16 #13-right 2nd toe cluster -Time 10:58 -Correct Patient Yes -Correct Side, Site, Position Yes -Correct Procedure Yes -Procedure Performed Yes -Type of Procedure Debridement -Clinical Debridement Subcutaneous -Post Debridement Size (cm) - Length 1.3 -Post Debridement Size (cm) - Width 1.2 -Post Debridement Size (cm) - Depth 0.1 -Total Square Cm 1.56 -Wound/Ulcer Outcome Not Healed -Ulcer Cleansing Rinsed/ Irrigated with Saline -Foul Odor after Cleansing No -Bioengineered Tissue No -Bleeding Controlled with NA -Treatment Response Procedure Tolerated Well Pain Scale: 0-10 Numeric Is Patient Pain Free? Yes Laterality: Right - Second toe dorsum Type of Debridement: Excisional debridement Anesthesia Used: 4% Lidocaine Solution Depth: Down to and including healthy tissue, in the subcutaneous layer Percentage of wound debrided: 100 Instrument Used: 7mm curette Severity: Fat Layer Exposed Amount of bleeding with debridement: Mild Bleeding Controlled with: Compression and gauze Patient tolerated procedure well - Additional Wound Laterality: Right - Medial malleolus Type of Debridement: Excisional debridement Anesthesia Used: 4% Lidocaine Solution Depth: Down to and including healthy tissue, in the subcutaneous layer Percentage of wound debrided: 100 Instrument Used: 7mm curette Severity: Fat Layer Exposed Amount of bleeding with debridement: Mild Bleeding Controlled with: Compression and gauze Patient tolerated procedure: Patient tolerated procedure well - Additional Wound Laterality: Right - Lateral foot Type of Debridement: Excisional debridement Anesthesia Used: 4% Lidocaine Solution Depth: Down to and including healthy tissue, in the subcutaneous layer Percentage of wound debrided: 100 Instrument Used: 7mm curette Severity: Fat Layer Exposed Amount of bleeding with debridement: Mild Bleeding Controlled with: Compression and gauze Patient tolerated procedure: Patient tolerated procedure well Assessment/Plan Active Problems Swelling of right lower extremity (Chronic) Edema leg (Chronic) Ulcer of great toe (Chronic) Venous hypertension, chronic, with inflammation (Chronic) Varicose veins with inflammation (Chronic) 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 He presented with an ulceration on the dorsum of the right great toe which is now essentially healed. This has extended to involve the adjacent right second toe dorsum. This appears to be pressure related, and likely due to ill fitted footwear. There is now also an ulceration of the right lateral foot. The patient's last visit there is now an ulceration near the right medial malleolus. Ulceration to the right medial malleolus appears to be related to the patient's chronic venous disease and venous hypertension. His other ulcerations, however, appear pressure related, and possibly due to poorly fitted footwear. Patient was evaluated by [facility] yesterday, though no documentation or recommendations have been received. Efforts have been made to have the patient evaluated by a civil engineering director for several months, but difficulties have been encountered in achieving the desired consultation. We currently await recommendations from the civil engineering director. It is suspected that the patient's shoes may either be improperly fitted, or friction forces exist within the shoes themselves. Leg elevation has been repeatedly advised, and the patient makes an effort to elevate his lower extremities frequently. He sleeps on a flat surface at night. 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 However, given the patient's history, and his recent presentation, it appears as though there is a level of noncompliance which is contributing to the patient's presenting manifestations. The swelling, edema, and erythema noted in the distal right lower extremity and foot has improved, but does persist. Patient has undergone an x-ray of his right foot, which reveals no evidence of osteomyelitis. Plan: Debridement done as documented above. Procedure was well-tolerated. We will use hydrogel topically with respect to each of the patient's ulcerations. This will be applied daily. Patient is to continue elevating his lower extremities as much as possible. He is to avoid idle sitting and standing. Activity has been encouraged. He has been advised to continue wearing graduated compression stockings as previously prescribed. Appropriate footwear has also been recommended, to avoid pressure phenomenon. Because of continuing concerns as to offloading of the right foot, we have sought evaluation at [facility] for fitting of foot wear with proper offloading. The evaluation has occurred, and recommendations are currently awaited. It is hoped that proper footwear or inserts will be implemented based upon his recent evaluation at [facility]. Concern exists as to possible pressure phenomenon or friction exerted by his work boots, which may be an impediment to the healing process. Consideration had been given to the use of skin substitutes, but the location of the ulceration, given the contour and motion in this area, renders the use of a skin substitute somewhat undesirable. The patient is to continue wearing graduated compression stockings of 30-40 mmHg compression. Patient will return in 1 week for reevaluation. The patient is not a smoker. Influenza vaccine was not administered today. The patient weighs 170 pounds. He stands 6 feet 0 inches tall. His BMI is 23.1, which is normal.
== END 2018-07-22 23:59 ==
LOC: WC 10:30
PROVIDERS: Family Provider Family Medicine; PCP Family Medicine; Referring Provider Surgery; Visit Provider Surgery
DX: I83.215 Varicose veins of right lower extremity with both ulcer other part of foot and inflammation (principal); R60.0 Localized edema; M79.89 Other specified soft tissue disorders; G20 Parkinson's disease; Z91.19 Patient's noncompliance with other medical treatment and regimen; L97.512 Non-pressure chronic ulcer of other part of right foot with fat layer exposed; L89.892 Pressure ulcer of other site, stage 2
CPT/HCPCS: 11042

== ENCOUNTER → 2018-07-21 12:53 | Outpatient (CLI) | payer MEDICARE, OTHER, SELFPAY | PROVIDERS: Family Provider Family Medicine; PCP Family Medicine; Referring Provider Dermatology; Visit Provider Dermatology | DX: B96.89 Other specified bacterial agents as the cause of diseases classified elsewhere (principal); I83.90 Asymptomatic varicose veins of unspecified lower extremity; I89.0 Lymphedema, not elsewhere classified | CPT/HCPCS: 87070; 87077; 87101; 87186; 87205 ==

== ENCOUNTER → 2018-08-24 12:05 | Outpatient (CLI) | payer MEDICARE, OTHER, SELFPAY ==
[2018-08-24 14:15] LABS: Anion Gap 6 (5-15); BUN 17 mg/dL (7-18); BUN/Creat Ratio 19.9 RATIO (10-20); Calcium,Total 8.8 mg/dL (8.5-10.1); Chloride 107 mmol/L (98-107); Cholesterol 181 mg/dL (200); Creatinine, Serum 0.86 mg/dL (0.70-1.30); EST Glomerular Filtration Rate 94 mL/min (>60); Est Glom Filt Rate - Afr Amer 114 mL/min (>60); Glucose 84 mg/dL (74-106); High Density Lipoprotein 52 mg/dL; Potassium 4.6 mmol/L (3.5-5.1); Sodium Level 143 mmol/L (136-145); Triglycerides 101 mg/dL; Very Low Density Lipoprotein 20 mg/dL (5-40)
--- OUTSIDE RECORDS SUMMARY | 2018-10-17 18:18 | XMS RPT_ITS ---
:1950 Author Organization [facility] Support Name Relationship Address Phone S Unavailable Unavailable Unavailable SUKHDEV FANG Unavailable [id number] + [place] [address] S Unavailable Unavailable Unavailable SUKHDEV FANG Unavailable [address] + [place] [address] S Unavailable Unavailable Unavailable SUKHDEV FANG Unavailable [address] + [place] [address] S Unavailable Unavailable Unavailable SUKHDEV FANG Unavailable [address] + [place] [address] S Unavailable Unavailable Unavailable SUKHDEV FANG Unavailable [address] + [place] [address] S Unavailable Unavailable Unavailable SUKHDEV FANG Unavailable [address] + [place] [address] S Unavailable Unavailable Unavailable SUKHDEV FANG Unavailable [address] + [place] [address] S Unavailable Unavailable Unavailable SUKHDEV FANG Unavailable [address] + [place] [address] S Unavailable Unavailable Unavailable SUKHDEV FANG Unavailable [address] [phone] [place] [address] S Unavailable Unavailable Unavailable SUKHDEV FANG Unavailable [address] [phone] [place] [address] S Unavailable Unavailable Unavailable SUKHDEV FANG Unavailable [address] [phone] [place] [address] S Unavailable Unavailable Unavailable SUKHDEV FANG Unavailable [address] [phone] [place] [address] S Unavailable Unavailable Unavailable LEONCIO, SUKHDEV Unavailable [address] [phone] [place] [address] Care Team Providers Name Role Phone Jadon Beverly Attending Unavailable Heredia, Joss Primary Care Unavailable Liz, Tip Attending Unavailable Heredia, Joss Primary Care Unavailable Liz, Tip Attending Unavailable Liz, Tip Referring Unavailable Heredia, Joss Primary Care Unavailable Ed, Gentry Attending Unavailable Heredia, Joss Primary Care Unavailable Ed, Gentry Attending Unavailable Ed, Gentry Referring Unavailable Heredia, Joss Primary Care Unavailable Liz, Tip Attending Unavailable Heredia, Joss Primary Care Unavailable Liz, Tip Referring Unavailable Liz, Tip Attending Unavailable Liz, Tip Referring Unavailable Heredia, Joss Primary Care Unavailable Cassi Taylor Attending Unavailable Liz, Tip Attending Unavailable Liz, Tip Referring Unavailable Heredia, Joss Primary Care Unavailable Liz, Tip Attending Unavailable Liz, Tip Referring Unavailable Heredia, Joss Primary Care Unavailable Gabe, Sina Attending Unavailable Gabe, Sina Referring Unavailable Heredia, Joss Primary Care Unavailable Liz, Tip Attending Unavailable Liz, Tip Referring Unavailable Heredia, Joss Primary Care Unavailable Heredia, Joss Attending Unavailable Heredia, Joss Primary Care Unavailable PROBLEMS PROBLEMS DATE TYPE CONDITION / CODE ATTENDING STATUS SOURCE 07/21/2018 Unknown B96.89 - Other Sina Bernal Active [place] specified bacterial Community agents as the cause Hospital of diseases Repository classified elsewhere / B96.89(ICD-10) 05/11/2018 Unknown L97.512 - [place] [facility] [place] Non-pressure chronic [place] Community ulcer of other part Hospital of right foot with Repository fat layer exposed / L97.512(ICD-10) 01/22/2018 Unknown 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[facility] [place]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, Community unspecified / Hospital I63.9(ICD-10) Repository 01/22/2018 Unknown Z86.73 - Personal [facility] [place] history of transient Community ischemic attack Hospital (TIA), and cerebral Repository infarction without residual deficits / Z86.73(ICD-10) 12/01/2017 Unknown I87.2 - Venous Tip Liz Active [place] insufficiency Community (chronic) Hospital (peripheral) / Repository I87.2(ICD-10) 12/01/2017 Unknown I83.10 - Varicose Tip Liz [facility] [place] veins of unspecified Community lower extremity with Hospital inflammation / Repository I83.10(ICD-10) 12/01/2017 Unknown I87.029 - Tip Liz [facility] [place] Postthrombotic Community syndrome with Hospital inflammation of Repository unspecified lower extremity / I87.029(ICD-10) 12/01/2017 Unknown I87.329 - Chronic Tip Liz [facility] [place] venous hypertension Community (idiopathic) with Hospital inflammation of Repository unspecified lower extremity / I87.329(ICD-10) 09/17/2017 Unknown R07.81 - Pleurodynia Jadon Beverly [facility] [place] / R07.81(ICD-10) [facility] Repository PROCEDURES PROCEDURES No Procedure Records FoundRESULTS RESULTS BASIC METABOLIC Collected: 08/24/2018 Status: F Source: [place] PROFILE (BMP) 12:08 PM [facility] REPOSITORY TYPE CODE TESTS RESULT OUT OF RANGE REFERENCE UNITS LAB L501.0100 74-106 mg/dL Normal GLU 84 Result Comment: Please note revised GLUCOSE reference range effective 2017. LAB L501.1000 7-18 mg/dL Normal BUN 17 LAB L501.1100 0.70-1.30 mg/dL Normal CREAT,SERUM 0.86 Result Comment: The validity of the calculated GFR AND GFRAA in patients over 70 years has not been determined. Clinical correlation is essential. LAB L501.1110 >60 mL/min Normal EST GFR 94 Result Comment: Non- GFR Calc LAB L501.1115 >60 mL/min Normal EST GFR - AA 114 Result Comment: GFR Calc LAB L501.1300 10-20 RATIO Normal BUN/CRE 19.9 LAB L501.2200 8.5-10.1 mg/dL CA Normal 8.8 LAB L501.5300 136-145 mmol/L NA Normal 143 LAB L501.5600 3.5-5.1 mmol/L K Normal 4.6 LAB L501.5900 98-107 mmol/L CL Normal 107 LAB L501.6100 21.0-32.0 mmol/L Normal CO2 30.0 LAB L501.6200 5-15 Normal GAP 6 Performed By: #### L500.2500, L500.4100 #### [facility] [place] [address], [address] LIPID PROFILE Collected: 08/24/2018 Status: F Source: MILAN 12:08 PM [facility] REPOSITORY TYPE CODE TESTS RESULT OUT OF RANGE REFERENCE UNITS LAB L501.4900 200 mg/dL Normal CHOL 181 Result Comment: <200 mg/dL Desirable 200-240 mg/dL Borderline >240 mg/dL High Risk LAB L501.5000 mg/dL Normal TRIG 101 Result Comment: The drugs N-Acetylcysteine and Metamizole may falsely depress this assay. Serum Triglycerides Reference Interval Normal <150 mg/dL Borderline high 150 - 199 mg/dL High 200 - 499 mg/dL Very High > or = 500 mg/dL LAB L501.6400 mg/dL Normal HDL 52 Result Comment: The drugs N-Acetylcysteine and Metamizole may falsely depress this assay. Reference Range HDL <40 mg/dL Low HDL Cholesterol HDL >or= 60 mg/dL High HDL Cholesterol LAB L501.6500 0-130 mg/dL Normal LDL 109 LAB L501.6600 5-40 mg/dL Normal VLDL 20 Performed By: #### L500.2500, L500.4100 #### [facility] [address] [place], [address] Observed: 07/21/2018 Status: F Source: [place] CULTURE, WOUND 10:30 AM [facility] REPOSITORY Gram Stain Gram Stain 2+ Gram negative rods 1+ Gram positive rods 1+ Gram positive cocci Wound Culture ORGANISM 1: Staphylococcus aureus Amount Growth 3+ ORGANISM 2: Streptococcus agalactiae (B) Amount Growth 3+ Staphylococcus aureus: REACTION Benzylpenicillin NF >=0.5 R Cefoxitin *NF - Clindamycin $$ <=0.25 S Inducable Clindamycin Resistan - Erythromycin $ <=0.25 S Gentamicin $ <=0.5 S Levofloxacin $ <=0.12 S Linezolid $$$$ 2 S Moxifloxicin *NF <=0.25 S Oxacillin NF 1 S Tigecycline $$$$ <=0.12 S Rifampin $$ <=0.5 S Tetracycline NF <=1 S Trimethoprim/Sulfametho $ <=10 S Vancomycin $ 1 S (NF) indicates non-formulary drug at [facility]. Approval by Infectious Disease Specialist required before non-formulary drugs may be ordered and/or dispensed. * CLSI guidelines does not recommend testing of cephalosporins. This interpretation is deduced from Beta-lactam/penicillin results. Streptococcus agalactiae (B): REACTION Ampicillin $ <=0.25 S Benzylpenicillin NF 0.12 S Ceftriaxone $ <=0.12 S Clindamycin $$ >=1 R Inducable Clindamycin Resistan - Linezolid $$$$ <=2 S Vancomycin $ 0.5 S (NF) indicates non-formulary drug at [facility]. Approval by Infectious Disease Specialist required before non-formulary drugs may be ordered and/or dispensed. * CLSI guidelines does not recommend testing of cephalosporins. This interpretation is deduced from Beta-lactam/penicillin results. Performed By: #### M100.1400 #### [facility]. [place], [place], [address] Observed: 07/21/2018 Status: F Source: [place] HAGAN, [place] [id number] 10:30 AM [facility] REPOSITORY Cu,[id number] TESTING PERFORMED AT [facility]. ORIGINAL REPORT ON FILE IN LAB CONTAINS ADDITIONAL TEST SITE INFORMATION. CUF Positive Fungus Culture ORGANISM 1: Scopulariopsis species Amount Growth Growth Performed By: #### M600.2000 #### [facility] [address] [place] [address]. [place], [place], [address] WOUND CTR HISTORY Observed: 07/14/2018 Status: F Source: MEKHI AND PHYSICAL 11:16 AM [facility] REPOSITORY [facility] [address] [place] [id number] Wound Ctr History AND Physical 07/14/18 1102 MR#: [id number] Acct: [id number] Name: GERARDO FANG Rep #: [id number] : 1950 68 From: Tip Liz MD PCP: Joss Heredia MD Status: REG RCR Y Location: (1) Swelling of right lower extremity Status: Chronic Current Visit: Yes Code(s): M79.89 - Other specified soft tissue disorders (2) Edema leg Status: Chronic Current Visit: Yes Code(s): R60.0 - Localized edema (3) Ulcer of great toe Status: Chronic Current Visit: Yes Qualifiers: Laterality: right Non-pressure ulcer stage: with fat layer exposed Qualified Code(s): L97.512 - Non-pressure chronic ulcer of other part of right foot with fat layer exposed Code(s): L97.509 - Non-pressure chronic ulcer of other part of unspecified foot with unspecified severity (4) Parkinsons disease Status: Chronic Current Visit: No Code(s): G20 - Parkinson's disease (5) Venous hypertension, chronic, with inflammation Status: Chronic Current Visit: Yes Qualifiers: Laterality: bilateral Code(s): I87.329 - Chronic venous hypertension (idiopathic) with inflammation of unspecified lower extremity (6) Varicose veins with inflammation Status: Chronic Current Visit: Yes Code(s): I83.10 - Varicose veins of unspecified lower extremity with inflammation (7) Venous hypertension, chronic, with ulcer and inflammation Status: Resolved Current Visit: Yes Qualifiers: Laterality: right Qualified Code(s): I87.331 - Chronic venous hypertension (idiopathic) with ulcer and inflammation of right lower extremity; L97.919 - Non-pressure chronic ulcer of unspecified part of right lower leg with unspecified severity Code(s): I87.339 - Chronic venous hypertension (idiopathic) with ulcer and inflammation of unspecified lower extremity (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 Current Visit: Yes Code(s): I87.091 - Postthrombotic syndrome with other complications of right lower extremity (9) Varicose veins with ulcer and inflammation Status: Chronic Current Visit: Yes Code(s): I83.209 - Varicose veins of unspecified lower extremity with both ulcer of unspecified site and inflammation; L97.909 - Non-pressure chronic ulcer of unspecified part of unspecified lower leg with unspecified severity (10) Chronic venous insufficiency Status: Chronic Current Visit: Yes (11) Venous ulcer of ankle Status: Resolved Current Visit: Yes Qualifiers: Laterality: right Code(s): I83.003 - Varicose veins of unspecified lower extremity with ulcer of ankle (12) Venous ulcer of right lower extremity with varicose veins Status: Chronic Current Visit: Yes Code(s): I83.019 - Varicose veins of right lower extremity with ulcer of unspecified site (13) History of ulcer of lower extremity Status: Chronic Current Visit: Yes Code(s): Z87.2 - Personal history of diseases of the skin and subcutaneous tissue (14) Postphlebitic syndrome with inflammation Status: Chronic Current Visit: Yes Code(s): I87.029 - Postthrombotic syndrome with inflammation of unspecified lower extremity (15) Ulcer, pressure Status: Chronic Current Visit: Yes Qualifiers: Pressure injury location: toe Pressure injury stage: stage 2 Code(s): L89.90 - Pressure ulcer of unspecified site, unspecified stage History of Present Illness Chief Complaint: Ulceration of the right second toe, great toe, and right lateral foot; venous ulceration of the right medial malleolus History of Wound: This is a 68-year-old male who presented with a one-month history of ulceration on the dorsum of his right great toe. Ulceration on the right great toe subsequently healed, and we have been dealing most recently with an ulceration on the dorsum of the right second toe. This appears to be pressure related, likely due to poorly fitted shoes. The patient was not sure as to the etiology. He was suspicious, however, that this may be related to pressure from an-ill fitting shoe. The patient has a long-standing history of chronic venous disease. The patient suffers from chronic venous insufficiency, varicose veins with inflammation and ulceration, venous hypertension with inflammation, postphlebitic syndrome with inflammation, etc. He has been treated for a venous ulceration on the right lateral malleolus, which has healed. He has suffered from venous disease for many years. In April 2013 he underwent endovenous laser ablation of the right great saphenous vein, the right small saphenous vein, and the right accessory saphenous vein. A subsequent venous duplex examination two months later revealed successful ablation of the right great saphenous vein, small saphenous vein, and accessory saphenous vein. The patient subsequently presented with ulcerations which occurred on the right medial malleolus and on the dorsum of the right second toe. The ulceration near the right medial malleolus appeared to be related to the patient's chronic venous disease. The ulceration on the right second toe appeared to be related to pressure from poorly-fitted work boots. The ulceration on the right second toe appeared pressure related, stage II, and likely due to swelling of the foot while wearing work boots. The patient's wound subsequently healed, the patient was discharged for as needed follow-up. Patient has been wearing graduated compression stockings of 20-30 mmHg on a daily basis. 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 The patient had also been instructed to avoid idle standing and sitting. However, it is known that the patient is relatively noncompliant with recommended treatment measures. 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 A noninvasive lower extremity arterial study performed in 2012 was normal. More recently, and noninvasive lower extremity arterial study on April 07, 2018, was also normal. At present, we are treating ulcerations on the dorsum of the right great toe, the right second toe, and the right lateral foot. Ulceration on the dorsum of the right great toe appears to have healed. Patient now has a new ulceration near the right medial malleolus. An appointment with [employer] occurred yesterday, though no documentation has been received. 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 Allergies/Adverse Reactions: Allergies No Known Allergies Allergy (Verified 08/28/17 10:21) Home Medications: Ambulatory Orders Medication Instructions Recorded Carbidopa/Levodopa 50/200 [Sinemet 1 tablet PO BIDAC 08/28/17 CR] Warfarin Sodium [Coumadin] 9 mg PO DAILY 08/28/17 - Family History Maternal No pertinent history, - - Patient's father at the age of 92 of old age. Patient's mother at the age of 76 with a history of myocardial infarction. Smoking Status: Never smoker Tobacco Use: Non-smoker Review of Systems Constitutional: Denies: Chills, Fever, Weight Change Eyes: Denies: Pain, Vision Change HEENT: Denies: Difficulty Hearing, Difficulty Swallowing, Sinus Congestion Cardiovascular: Denies: Chest Pain, Palpitations Respiratory: Denies: Cough, Shortness of Breath Gastrointestinal: Denies: Diarrhea, Nausea, Vomiting Genitourinary: Denies: Dysuria, Hematuria Endocrine: Denies: Heat/ Cold Intolerance, Polydipsia, Polyuria Hematologic/ Lymphatic: Denies: Easy Bruising, Easy Bleeding - Physical Exam Vital Signs Temp Pulse Resp BP 97.8 F 72 18 128/67 H 07/14/18 10:25 07/14/18 10:25 07/14/18 10:25 07/14/18 10:25 General: Alert, Oriented x3, Cooperative, No apparent distress, Well developed, Well nourished HEENT: Atraumatic, PERRLA, EOMI, Normocephalic Oral: Moist Mucosa Neck: No JVD Lungs: Normal air movement Abdomen: Non-Distended Extremities: No clubbing, No cyanosis, No Calf Tenderness, - - Moderate swelling and edema is noted in the right distal lower extremity in the right foot. Ulcerations are noted on the dorsum of the right second toe. The ulceration on the dorsum of the right great toe appears to have completely healed. There is an ulceration on the right lateral foot, which is relatively small in size. A new ulceration has occurred near the right medial malleolus since the patient's last visit. There is no sign of infection or cellulitis related to any of these ulcerations. A moderate amount of bioburden is present at each. Dimensions are documented elsewhere. Chronic venous changes are noted in the distal right lower extremity. This includes hyperpigmentation in the gaiter area. Patient is also noted to have multiple large varicosities. Wound Measurements and Assessment WC - Nurse 1 - General Ulcer Measurement Start: 06/30/18 10:37 Freq: Status: Active Protocol: Activity Type Activity Date Activity User E-Sign Co-Sign Detail Recorded Client Recorded Date Recorded By Document 07/14/18 10:25 DL [id number] 07/14/18 10:47 DL Wound Center Nurse 1 [Ulcer Assessment] #16 R Med Ankle -Current Size (cm) - Length 0.6 Neurological: Cranial nerves II-XII grossly intact, Neuro grossly intact Psych/Mental Status: Normal Affect, Appropriate, Alert and oriented to time, place, person, mood and affect Debridement Note Post-Debridement Measurements/Treatment WC - Nurse 2 - General Ulcer CM Notes Start: 06/30/18 10:37 Freq: Status: Active Protocol: Activity Type Activity Date Activity User E-Sign Co-Sign Detail Recorded Client Recorded Date Recorded By Document 06/30/18 10:56 [email or web address] [id number] 06/30/18 10:59 JS Wound Center Nurse 2 #15 Right Lateral Foot -Time 10:56 -Correct Patient Yes -Correct Side, Site, Position Yes Laterality: Right - Second toe dorsum Type of Debridement: Excisional debridement Anesthesia Used: 4% Lidocaine Solution Depth: Down to and including healthy tissue, in the subcutaneous layer Percentage of wound debrided: 100 Instrument Used: 7mm curette Severity: Fat Layer Exposed Amount of bleeding with debridement: Mild Bleeding Controlled with: Compression and gauze Patient tolerated procedure well - Additional Wound Laterality: Right - Medial malleolus Type of Debridement: Excisional debridement Anesthesia Used: 4% Lidocaine Solution Depth: Down to and including healthy tissue, in the subcutaneous layer Percentage of wound debrided: 100 Instrument Used: 7mm curette Severity: Fat Layer Exposed Amount of bleeding with debridement: Mild Bleeding Controlled with: Compression and gauze Patient tolerated procedure: Patient tolerated procedure well - Additional Wound Laterality: Right - Lateral foot Type of Debridement: Excisional debridement Anesthesia Used: 4% Lidocaine Solution Depth: Down to and including healthy tissue, in the subcutaneous layer Percentage of wound debrided: 100 Instrument Used: 7mm curette Severity: Fat Layer Exposed Amount of bleeding with debridement: Mild Bleeding Controlled with: Compression and gauze Patient tolerated procedure: Patient tolerated procedure well Assessment/Plan Active Problems Swelling of right lower extremity (Chronic) Edema leg (Chronic) Ulcer of great toe (Chronic) Venous hypertension, chronic, with inflammation (Chronic) Varicose veins with inflammation (Chronic) 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 He presented with an ulceration on the dorsum of the right great toe which is now essentially healed. This has extended to involve the adjacent right second toe dorsum. This appears to be pressure related, and likely due to ill fitted footwear. There is now also an ulceration of the right lateral foot. The patient's last visit there is now an ulceration near the right medial malleolus. Ulceration to the right medial malleolus appears to be related to the patient's chronic venous disease and venous hypertension. His other ulcerations, however, appear pressure related, and possibly due to poorly fitted footwear. Patient was evaluated by [employer] yesterday, though no documentation or recommendations have been received. Efforts have been made to have the patient evaluated by a company controller for several months, but difficulties have been encountered in achieving the desired consultation. We currently await recommendations from the company controller. It is suspected that the patient's shoes may either be improperly fitted, or friction forces exist within the shoes themselves. Leg elevation has been repeatedly advised, and the patient makes an effort to elevate his lower extremities frequently. He sleeps on a flat surface at night. 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 However, given the patient's history, and his recent presentation, it appears as though there is a level of noncompliance which is contributing to the patient's presenting manifestations. The swelling, edema, and erythema noted in the distal right lower extremity and foot has improved, but does persist. Patient has undergone an x-ray of his right foot, which reveals no evidence of osteomyelitis. Plan: Debridement done as documented above. Procedure was well-tolerated. We will use hydrogel topically with respect to each of the patient's ulcerations. This will be applied daily. Patient is to continue elevating his lower extremities as much as possible. He is to avoid idle sitting and standing. Activity has been encouraged. He has been advised to continue wearing graduated compression stockings as previously prescribed. Appropriate footwear has also been recommended, to avoid pressure phenomenon. Because of continuing concerns as to offloading of the right foot, we have sought evaluation at [facility] [employer] for fitting of foot wear with proper offloading. The evaluation has occurred, and recommendations are currently awaited. It is hoped that proper footwear or inserts will be implemented based upon his recent evaluation at [facility] [employer]. Concern exists as to possible pressure phenomenon or friction exerted by his work boots, which may be an impediment to the healing process. Consideration had been given to the use of skin substitutes, but the location of the ulceration, given the contour and motion in this area, renders the use of a skin substitute somewhat undesirable. The patient is to continue wearing graduated compression stockings of 30-40 mmHg compression. Patient will return in 1 week for reevaluation. The patient is not a smoker. Influenza vaccine was not administered today. The patient weighs 170 pounds. He stands 6 feet 0 inches tall. His BMI is 23.1, which is normal. 07/14/18 1116 <Electronically signed by Tip Liz MD> Date Tip Liz MD CC: Signed WOUND CTR HISTORY Observed: 06/30/2018 Status: F Source: [facility] 11:07 AM [facility] REPOSITORY [facility] [address] [place] [id number] Wound Ctr History AND Physical 06/30/18 1100 MR#: [id number] Acct: [id number] Name: GERARDO FANG Rep #: [id number] : 1950 68 From: Tip Liz MD PCP: Joss Heredia MD Status: PRE RCR Y Location: WC (1) Swelling of right lower extremity Status: Chronic Code(s): M79.89 - Other specified soft tissue disorders (2) Edema leg Status: Chronic Code(s): R60.0 - Localized edema (3) Ulcer of great toe Status: Chronic Qualifiers: Laterality: right Non-pressure ulcer stage: with fat layer exposed Qualified Code(s): L97.512 - Non-pressure chronic ulcer of other part of right foot with fat layer exposed Code(s): L97.509 - Non-pressure chronic ulcer of other part of unspecified foot with unspecified severity (4) Parkinsons disease Status: Chronic Code(s): G20 - Parkinson's disease (5) Venous hypertension, chronic, with inflammation Status: Chronic Qualifiers: Laterality: bilateral Code(s): I87.329 - Chronic venous hypertension (idiopathic) with inflammation of unspecified lower extremity (6) Varicose veins with inflammation Status: Chronic Code(s): I83.10 - Varicose veins of unspecified lower extremity with inflammation (7) Venous hypertension, chronic, with ulcer and inflammation Status: Resolved Qualifiers: Code(s): I87.339 - Chronic venous hypertension (idiopathic) with ulcer and inflammation of unspecified lower extremity (8) Post-phlebitic dermatosis of right lower extremity Status: Resolved Code(s): I87.091 - Postthrombotic syndrome with other complications of right lower extremity (9) Varicose veins with ulcer and inflammation Status: Resolved Code(s): I83.209 - Varicose veins of unspecified lower extremity with both ulcer of unspecified site and inflammation; L97.909 - Non- pressure chronic ulcer of unspecified part of unspecified lower leg with unspecified severity (10) Chronic venous insufficiency Status: Chronic (11) Venous ulcer of ankle Status: Resolved Qualifiers: Code(s): I83.003 - Varicose veins of unspecified lower extremity with ulcer of ankle (12) Venous ulcer of right lower extremity with varicose veins Status: Resolved Code(s): I83.019 - Varicose veins of right lower extremity with ulcer of unspecified site (13) History of ulcer of lower extremity Status: Chronic Code(s): Z87.2 - Personal history of diseases of the skin and subcutaneous tissue (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 Ulceration on the right great toe subsequently healed, and we have been dealing most recently with an ulceration on the dorsum of the right second toe. This appears to be pressure related, likely due to poorly fitted shoes. The patient was not sure as to the etiology. He was suspicious, however, that this may be related to pressure from an-ill fitting shoe. The patient has a long-standing history of chronic venous disease. The patient suffers from chronic venous insufficiency, varicose veins with inflammation and ulceration, venous hypertension with inflammation, postphlebitic syndrome with inflammation, etc. He has been treated for a venous ulceration on the right lateral malleolus, which has healed. He has suffered from venous disease for many years. In April 2013 he underwent endovenous laser ablation of the right great saphenous vein, the right small saphenous vein, and the right accessory saphenous vein. A subsequent venous duplex examination two months later revealed successful ablation of the right great saphenous vein, small saphenous vein, and accessory saphenous vein. The patient subsequently presented with ulcerations which occurred on the right medial malleolus and on the dorsum of the right second toe. The ulceration near the right medial malleolus appeared to be related to the patient's chronic venous disease. The ulceration on the right second toe appeared to be related to pressure from poorly-fitted work boots. The ulceration on the right second toe appeared pressure related, stage II, and likely due to swelling of the foot while wearing work boots. The patient's wound subsequently healed, the patient was discharged for as needed follow-up. Patient has been wearing graduated compression stockings of 20-30 mmHg on a daily basis. 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 The patient had also been instructed to avoid idle standing and sitting. However, it is known that the patient is relatively noncompliant with recommended treatment measures. 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 A noninvasive lower extremity arterial study performed in 2012 was normal. More recently, and noninvasive lower extremity arterial study on April 07, 2018, was also normal. At present, we are treating ulcerations on the dorsum of the right great toe, the right second toe, and the right lateral foot. Each appears related to swelling in the right foot, which has resulted in pressure points within his foot wear. An appointment with [facility] has been pending for quite some time. Past Medical History Past Medical History: Chronic Problems Swelling of right lower extremity (Chronic) Edema leg (Chronic) Ulcer of great toe (Chronic) Parkinsons disease (Chronic) Venous hypertension, chronic, with inflammation (Chronic) Varicose veins with inflammation (Chronic) Chronic venous insufficiency (Chronic) History of ulcer of lower extremity (Chronic) Postphlebitic syndrome with inflammation (Chronic) Ulcer, pressure (Chronic) Surgical History: total knee arthroplasty, - - Patient underwent endovenous laser ablation of the right great saphenous vein, the right small saphenous vein, the right accessory saphenous vein on May 04, 2013. Allergies/Adverse Reactions: Allergies No Known Allergies Allergy (Verified 08/28/17 10:21) Home Medications: Ambulatory Orders Medication Instructions Recorded Carbidopa/Levodopa 50/200 [Sinemet 1 tablet PO BIDAC 08/28/17 CR] Warfarin Sodium [Coumadin] 9 mg PO DAILY 08/28/17 - Family History Maternal No pertinent history, - - Patient's father at the age of 92 of old age. Patient's mother at the age of 76 with a history of myocardial infarction. Smoking Status: Never smoker Tobacco Use: Non-smoker Review of Systems Constitutional: Denies: Chills, Fever, Weight Change Eyes: Denies: Pain, Vision Change HEENT: Denies: Difficulty Hearing, Difficulty Swallowing, Sinus Congestion Cardiovascular: Denies: Chest Pain, Palpitations Respiratory: Denies: Cough, Shortness of Breath Gastrointestinal: Denies: Diarrhea, Nausea, Vomiting Genitourinary: Denies: Dysuria, Hematuria Endocrine: Denies: Heat/ Cold Intolerance, Polydipsia, Polyuria Hematologic/ Lymphatic: Denies: Easy Bruising, Easy Bleeding - Physical Exam Vital Signs Temp Pulse Resp BP 97.1 F L 64 18 129/72 H 06/30/18 10:37 06/30/18 10:37 06/30/18 10:37 06/30/18 10:37 General: Alert, Oriented x3, Cooperative, No apparent distress, Well developed, Well nourished HEENT: Atraumatic, PERRLA, EOMI, Normocephalic Oral: Moist Mucosa Neck: No JVD Lungs: Normal air movement Abdomen: Non-Distended Extremities: No clubbing, No cyanosis, No Calf Tenderness, - - Swelling and edema persists in the patient's distal right lower extremity and on the right foot. The ulcerations on the dorsum of the right great toe and the right second toe, and that on the lateral aspect of the right foot, are markedly improved. There is evidence of peripheral epithelialization. Each of the ulcerations is smaller in size. Dimensions are documented elsewhere. There is a small amount of bioburden. There is no sign of infection or cellulitis. Skin: No rashes Wound Measurements and Assessment WC - Nurse 1 - General Ulcer Measurement Start: 06/30/18 10:37 Freq: Status: Active Protocol: Activity Type Activity Date Activity User E-Sign Co-Sign Detail Recorded Client Recorded Date Recorded By Document 06/30/18 10:37 CHARIS [id number] 06/30/18 10:53 CHARIS Wound Center Nurse 1 [Ulcer Assessment] - Nurse 2 - General Ulcer CM Notes Start: 06/30/18 10:37 Freq: Status: Active Protocol: Activity Type Activity Date Activity User E-Sign Co-Sign Detail Recorded Client Recorded Date Recorded By Document 06/30/18 10:56 SANJUANITA [id number] 06/30/18 10:59 SANJUANITA Wound Center Nurse 2 [Procedure/Treatment] Neurological: Cranial nerves II-XII grossly intact, Neuro grossly intact Psych/Mental Status: Normal Affect, Appropriate, Alert and oriented to time, place, person, mood and affect Debridement Note Post-Debridement Measurements/Treatment WC - Nurse 2 - General Ulcer CM Notes Start: 06/30/18 10:37 Freq: Status: Active Protocol: Activity Type Activity Date Activity User E-Sign Co-Sign Detail Recorded Client Recorded Date Recorded By Document 06/30/18 10:56 SANJUANITA [id number] 06/30/18 10:59 SANJUANITA Wound Center Nurse 2 #15 Right Lateral Foot -Time 10:56 -Correct Patient Yes -Correct Side, Site, Position Yes Laterality: Right - Great toe, dorsum Type of Debridement: Excisional debridement Anesthesia Used: 4% Lidocaine Solution Depth: Down to and including healthy tissue, in the subcutaneous layer Percentage of wound debrided: 100 Instrument Used: 7mm curette Severity: Fat Layer Exposed Amount of bleeding with debridement: Mild Bleeding Controlled with: Compression and gauze Patient tolerated procedure well - Additional Wound Laterality: Right - Second toe, dorsum Anesthesia Used: 4% Lidocaine Solution Depth: Down to and including healthy tissue, in the subcutaneous layer Percentage of wound debrided: 100 Instrument Used: 7mm curette Severity: Fat Layer Exposed Amount of bleeding with debridement: Mild Bleeding Controlled with: Compression and gauze Patient tolerated procedure: Patient tolerated procedure well - Additional Wound Laterality: Right - Lateral foot Type of Debridement: Excisional debridement Anesthesia Used: 4% Lidocaine Solution Depth: Down to and including healthy tissue, in the subcutaneous layer Percentage of wound debrided: 100 Instrument Used: 7mm curette Severity: Fat Layer Exposed Amount of bleeding with debridement: Mild Bleeding Controlled with: Compression and gauze Patient tolerated procedure: Patient tolerated procedure well Assessment/Plan Assessment: This is a 68-year-old male with a long-standing history of chronic venous disease, as described above. He recently presented with an ulceration on the dorsum of the right great toe. This has extended to involve the adjacent right second toe dorsum. This appears to be pressure related, and likely due to ill fitted footwear. The ulceration on the dorsum of the right great toe had been healed, but has now reopened. There is now also an ulceration of the right lateral foot. This may be related to a new pair of work boots which the patient has recently started wearing. It is suspected that the patient's shoes may be properly fitted, but with swelling which occurs at the end of each day, the shoes may become too tight, causing pressure phenomenon resulting in ulcerations. He claims to have been wearing his graduated compression stockings on a daily basis. He makes an effort to elevate his lower extremities frequently. He sleeps on a flat surface at night. 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 However, given the patient's history, and his recent presentation, it appears as though there is a level of noncompliance which is contributing to the patient's presenting manifestations. The swelling, edema, and erythema noted in the distal right lower extremity and foot has improved, but does persist. Patient has recently undergone an x-ray of his right foot, which reveals no evidence of osteomyelitis. Plan: Debridement done as documented above. Procedure was well-tolerated. We will use hydrogel topically with respect to each of the patient's ulcerations. This will be applied daily. Patient is to continue elevating his lower extremities as much as possible. He is to avoid idle sitting and standing. Activity has been encouraged. He has been advised to continue wearing graduated compression stockings as previously prescribed. Appropriate footwear has also been recommended, to avoid pressure phenomenon. Because of continuing concerns as to offloading of the right foot, we have sought evaluation at [employer] for fitting of foot wear with proper offloading. The evaluation at [facility] had been scheduled for June 30, but has been rescheduled to July 12, due to the patient's need to attend a . Concern exists as to possible pressure phenomenon exerted by his work boots, which may be an impediment to the healing process. Consideration had been given to the use of skin substitutes, but the location of the ulceration, given the contour and motion in this area, renders the use of a skin substitute somewhat undesirable. Patient will return in 1 week for reevaluation. The patient is not a smoker. Influenza vaccine was not administered today. The patient weighs 170 pounds. He stands 6 feet 0 inches tall. His BMI is 23.1, which is normal. 06/30/18 1107 <Electronically signed by Tip Liz MD> Date Tip Liz MD CC: Signed WOUND CTR HISTORY Observed: 06/16/2018 Status: F Source: [facility] 11:46 AM [facility] REPOSITORY [facility] [address] [place] [address] Wound Ctr History AND Physical 06/16/18 1134 MR#: [id number] Acct: [id number] Name: GERARDO FANG Rep #: [id number] : 1950 68 From: Tip Liz MD PCP: Joss Heredia MD Status: REG RCR Y Location: WC (1) Swelling of right lower extremity Status: Chronic Current Visit: Yes Code(s): M79.89 - Other specified soft tissue disorders (2) Edema leg Status: Chronic Current Visit: Yes Code(s): R60.0 - Localized edema (3) Parkinsons disease Status: Chronic Current Visit: No Code(s): G20 - Parkinson's disease (4) Venous hypertension, chronic, with inflammation Status: Chronic Current Visit: Yes Qualifiers: Laterality: bilateral Code(s): I87.329 - Chronic venous hypertension (idiopathic) with inflammation of unspecified lower extremity (5) Varicose veins with inflammation Status: Chronic Current Visit: Yes Code(s): I83.10 - Varicose veins of unspecified lower extremity with inflammation (6) Venous hypertension, chronic, with ulcer and inflammation Status: Resolved Current Visit: Yes Qualifiers: Code(s): I87.339 - Chronic venous hypertension (idiopathic) with ulcer and inflammation of unspecified lower extremity (7) Post-phlebitic dermatosis of right lower extremity Status: Resolved Current Visit: Yes Code(s): I87.091 - Postthrombotic syndrome with other complications of right lower extremity (8) Chronic venous insufficiency Status: Chronic Current Visit: Yes (9) History of ulcer of lower extremity Status: Chronic Current Visit: Yes Code(s): Z87.2 - Personal history of diseases of the skin and subcutaneous tissue (10) Postphlebitic syndrome with inflammation Status: Chronic Current Visit: Yes Code(s): I87.029 - Postthrombotic syndrome with inflammation of unspecified lower extremity (11) Ulcer, pressure Status: Chronic Current Visit: Yes Qualifiers: Pressure injury location: toe Pressure injury stage: stage 2 Laterality: right Qualified Code(s): L89.892 - Pressure ulcer of other site, stage 2 Code(s): L89.90 - Pressure ulcer of unspecified site, unspecified stage History of Present Illness Chief Complaint: Ulceration of the right second toe History of Wound: This is a 68-year-old male who presented with a one-month history of ulceration on the dorsum of his right great toe. Ulceration on the right great toe subsequently healed, we have been dealing most recently with an ulceration on the dorsum of the right second toe. This appears to be pressure related, likely due to poorly fitted shoes. The patient was not sure as to the etiology. He was suspicious, however, that this may be related to pressure from an-ill fitting shoe. The patient has a long- standing history of chronic venous disease. The patient suffers from chronic venous insufficiency, varicose veins with inflammation and ulceration, venous hypertension with inflammation, postphlebitic syndrome with inflammation, etc. He has been treated for a venous ulceration on the right lateral malleolus, which has healed. He has suffered from venous disease for many years. In April 2013 he underwent endovenous laser ablation of the right great saphenous vein, the right small saphenous vein, and the right accessory saphenous vein. A subsequent venous duplex examination two months later revealed successful ablation of the right great saphenous vein, small saphenous vein, and accessory saphenous vein. The patient subsequently presented with ulcerations which occurred on the right medial malleolus and on the dorsum of the right second toe. The ulceration near the right medial malleolus appeared to be related to the patient's chronic venous disease. The ulceration on the right second toe appeared to be related to pressure from poorly-fitted work boots. The ulceration on the right second toe appeared pressure related, stage II, and likely due to swelling of the foot while wearing work boots. The patient's wound subsequently healed, the patient was discharged for as needed follow-up. Patient has been wearing graduated compression stockings of 20-30 mmHg on a daily basis. 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 The patient had also been instructed to avoid idle standing and sitting. However, it is known that the patient is relatively noncompliant with recommended treatment measures. 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 A noninvasive lower extremity arterial study performed in 2012 was normal. More recently, and noninvasive lower extremity arterial study on April 07, 2018, was also normal. Past Medical History Past Medical History: Chronic Problems Swelling of right lower extremity (Chronic) Edema leg (Chronic) Parkinsons disease (Chronic) Venous hypertension, chronic, with inflammation (Chronic) Varicose veins with inflammation (Chronic) Chronic venous insufficiency (Chronic) History of ulcer of lower extremity (Chronic) Postphlebitic syndrome with inflammation (Chronic) Ulcer, pressure (Chronic) Surgical History: total knee arthroplasty, - - Patient underwent endovenous laser ablation of the right great saphenous vein, the right small saphenous vein, the right accessory saphenous vein on May 04, 2013. Allergies/Adverse Reactions: Allergies No Known Allergies Allergy (Verified 08/28/17 10:21) Home Medications: Ambulatory Orders Medication Instructions Recorded Carbidopa/Levodopa 50/200 [Sinemet 1 tablet PO BIDAC 08/28/17 CR] Warfarin Sodium [Coumadin] 9 mg PO DAILY 08/28/17 - Family History Maternal No pertinent history, - - Patient's father at the age of 92 of old age. Patient's mother at the age of 76 with a history of myocardial infarction. Smoking Status: Never smoker Tobacco Use: Non-smoker Review of Systems Constitutional: Denies: Chills, Fever, Weight Change Eyes: Denies: Pain, Vision Change HEENT: Denies: Difficulty Hearing, Difficulty Swallowing, Sinus Congestion Cardiovascular: Denies: Chest Pain, Palpitations Respiratory: Denies: Cough, Shortness of Breath Gastrointestinal: Denies: Diarrhea, Nausea, Vomiting Genitourinary: Denies: Dysuria, Hematuria Endocrine: Denies: Heat/ Cold Intolerance, Polydipsia, Polyuria Hematologic/ Lymphatic: Denies: Easy Bruising, Easy Bleeding - Physical Exam Vital Signs Temp Pulse Resp BP 97.3 F L 71 18 118/73 06/16/18 10:33 06/16/18 10:33 06/16/18 10:33 06/16/18 10:33 General: Alert, Oriented x3, Cooperative, No apparent distress, Well developed, Well nourished HEENT: Atraumatic, PERRLA, EOMI, Normocephalic Oral: Moist Mucosa Neck: No JVD Lungs: Normal air movement Abdomen: Non-Distended Extremities: No clubbing, No cyanosis, No Calf Tenderness, - - Mild swelling and edema persist in the right lower extremity. The ulceration on the dorsum of the right second toe persists, but is smaller in size. Dimensions are documented elsewhere. There is a moderate amount of bioburden. There is evidence of healthy granulation tissue. There is no sign of infection or cellulitis. The ulceration on the dorsum of the right great toe has reopened, but remains superficial. There is also a new ulceration on the right lateral foot. There is no sign of infection or cellulitis regarding any of these ulcerations. Dimensions are documented elsewhere. Skin: No rashes Wound Measurements and Assessment WC - Nurse 1 - General Ulcer Measurement Start: 05/26/18 10:04 Freq: Status: Active Protocol: Activity Type Activity Date Activity User E-Sign Co-Sign Detail Recorded Client Recorded Date Recorded By Document 06/16/18 10:21 [id number] [id number] 06/16/18 10:33 DV Wound Center Nurse 1 [Ulcer Assessment] #15 Right Lateral Foot WC - Nurse 2 - General Ulcer CM Notes Start: 05/26/18 10:04 Freq: Status: Active Protocol: Activity Type Activity Date Activity User E-Sign Co-Sign Detail Recorded Client Recorded Date Recorded By Document 06/16/18 11:24 [id number] 06/16/18 11:27 Wound Center Nurse 2 [Procedure/Treatment] #15 Right Lateral Foot Neurological: Cranial nerves II-XII grossly intact, Neuro grossly intact Psych/Mental Status: Normal Affect, Appropriate, Alert and oriented to time, place, person, mood and affect Debridement Note Post-Debridement Measurements/Treatment WC - Nurse 2 - General Ulcer CM Notes Start: 05/26/18 10:04 Freq: Status: Active Protocol: Activity Type Activity Date Activity User E-Sign Co-Sign Detail Recorded Client Recorded Date Recorded By Document 05/26/18 10:28 [id number] 05/26/18 10:32 Wound Center Nurse 2 #15 Right Lateral Foot Wound Center Nurse 2 #15 Right Lateral Foot -Time 11:25 -Correct Patient Yes -Correct Side, Site, Position Yes -Correct Procedure Yes -Procedure Performed Yes Laterality: Right - Great toe, dorsum Type of Debridement: Excisional debridement Anesthesia Used: 4% Lidocaine Solution Depth: Down to and including healthy tissue, in the subcutaneous layer Percentage of wound debrided: 100 Instrument Used: 7mm curette Severity: Fat Layer Exposed Amount of bleeding with debridement: Mild Bleeding Controlled with: Compression and gauze Patient tolerated procedure well - Additional Wound Laterality: Right - Second toe, dorsum Type of Debridement: Excisional debridement Anesthesia Used: 4% Lidocaine Solution Depth: Down to and including healthy tissue, in the subcutaneous layer Percentage of wound debrided: 100 Instrument Used: 7mm curette Severity: Fat Layer Exposed Amount of bleeding with debridement: Mild Bleeding Controlled with: Compression and gauze Patient tolerated procedure: Patient tolerated procedure well - Additional Wound Laterality: Right - Lateral foot Type of Debridement: Excisional debridement Anesthesia Used: 4% Lidocaine Solution Depth: Down to and including healthy tissue, in the subcutaneous layer Percentage of wound debrided: 100 Instrument Used: 7mm curette Severity: Fat Layer Exposed Amount of bleeding with debridement: Mild Bleeding Controlled with: Compression and gauze Patient tolerated procedure: Patient tolerated procedure well Assessment/Plan Active Problems Swelling of right lower extremity (Chronic) Edema leg (Chronic) Venous hypertension, chronic, with inflammation (Chronic) Varicose veins with inflammation (Chronic) Chronic venous insufficiency (Chronic) History of ulcer of lower extremity (Chronic) Postphlebitic syndrome with inflammation (Chronic) Ulcer, pressure (Chronic) Assessment: This is a 68-year-old male with a long-standing history of chronic venous disease, as described above. He recently presented with an ulceration on the dorsum of the right great toe. This has extended to involve the adjacent right second toe dorsum. This appears to be pressure related, and likely due to ill fitted footwear. The ulceration on the dorsum of the right great toe had been healed, but has now reopened. There is now also an ulceration of the right lateral foot, which is less than 1 week old. This may be related to a new pair of work boots which the patient has recently started wearing. It is suspected that the patient's shoes may be properly fitted, but with swelling which occurs at the end of each day, the shoes may become too tight, causing pressure phenomenon resulting in ulcerations. He claims to have been wearing his graduated compression stockings on a daily basis. He makes an effort to elevate his lower extremities frequently. He sleeps on a flat surface at night. 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 However, given the patient's history, and his recent presentation, it appears as though there is a level of noncompliance which is contributing to the patient's presenting manifestations. The swelling, edema, and erythema noted in the distal right lower extremity and foot has improved, but does persist. Patient has recently undergone an x-ray of his right foot, which reveals no evidence of osteomyelitis. Plan: Debridement done as documented above. Procedure was well-tolerated. We will use hydrogel topically with respect to each of the patient's ulcerations. This will be applied daily. Patient is to continue elevating his lower extremities as much as possible. He is to avoid idle sitting and standing. Activity has been encouraged. He has been advised to continue wearing graduated compression stockings as previously prescribed. Appropriate footwear has also been recommended, to avoid pressure phenomenon. Because of continuing concerns as to offloading of the right foot, we have sought evaluation at [facility] for fitting of foot wear with proper offloading. The evaluation at [facility] has been scheduled for June 30. Concern exists as to possible pressure phenomenon exerted by his work boots, which may be an impediment to the healing process. Consideration had been given to the use of skin substitutes, but the location of the ulceration, given the contour and motion in this area, renders the use of a skin substitute somewhat undesirable. Patient will return in 1 week for reevaluation. The patient is not a smoker. Influenza vaccine was not administered today. The patient weighs 170 pounds. He stands 6 feet 0 inches tall. His BMI is 23.1, which is normal. 06/16/18 1146 <Electronically signed by Tip Liz MD> Date Tip Liz MD CC: Signed WOUND CTR HISTORY Observed: 06/09/2018 Status: F Source: [facility] 11:21 AM [facility] REPOSITORY [facility] [address] [place] [id number] Wound Ctr History AND Physical 06/09/18 1115 MR#: [id number] Acct: [id number] Name: GERARDO FANG Rep #: [id number] : 1950 68 From: Tip Liz MD PCP: Joss Heredia MD Status: REG RCR Y Location: WC (1) Swelling of right lower extremity Status: Chronic Current Visit: Yes Code(s): M79.89 - Other specified soft tissue disorders (2) Edema leg Status: Chronic Current Visit: Yes Code(s): R60.0 - Localized edema (3) Parkinsons disease Status: Chronic Current Visit: No Code(s): G20 - Parkinson's disease (4) Venous hypertension, chronic, with inflammation Status: Chronic Current Visit: Yes Qualifiers: Laterality: bilateral Code(s): I87.329 - Chronic venous hypertension (idiopathic) with inflammation of unspecified lower extremity (5) Varicose veins with inflammation Status: Chronic Current Visit: Yes Code(s): I83.10 - Varicose veins of unspecified lower extremity with inflammation (6) Venous hypertension, chronic, with ulcer and inflammation Status: Resolved Current Visit: Yes Qualifiers: Code(s): I87.339 - Chronic venous hypertension (idiopathic) with ulcer and inflammation of unspecified lower extremity (7) Post-phlebitic dermatosis of right lower extremity Status: Resolved Current Visit: Yes Code(s): I87.091 - Postthrombotic syndrome with other complications of right lower extremity (8) Chronic venous insufficiency Status: Chronic Current Visit: Yes (9) History of ulcer of lower extremity Status: Chronic Current Visit: Yes Code(s): Z87.2 - Personal history of diseases of the skin and subcutaneous tissue (10) Postphlebitic syndrome with inflammation Status: Chronic Current Visit: Yes Code(s): I87.029 - Postthrombotic syndrome with inflammation of unspecified lower extremity (11) Ulcer, pressure Status: Chronic Current Visit: Yes Qualifiers: Pressure injury location: toe Pressure injury stage: stage 2 Laterality: right Qualified Code(s): L89.892 - Pressure ulcer of other site, stage 2 Code(s): L89.90 - Pressure ulcer of unspecified site, unspecified stage History of Present Illness Date of Service: 06/09/18 Chief Complaint: Ulceration of the right second toe History of Wound: This is a 68-year-old male who presented with a one-month history of ulceration on the dorsum of his right great toe. Ulceration on the right great toe subsequently healed, we have been dealing most recently with an ulceration on the dorsum of the right second toe. This appears to be pressure related, likely due to poorly fitted shoes. The patient was not sure as to the etiology. He was suspicious, however, that this may be related to pressure from an-ill fitting shoe. The patient has a long- standing history of chronic venous disease. The patient suffers from chronic venous insufficiency, varicose veins with inflammation and ulceration, venous hypertension with inflammation, postphlebitic syndrome with inflammation, etc. He has been treated for a venous ulceration on the right lateral malleolus, which has healed. He has suffered from venous disease for many years. In April 2013 he underwent endovenous laser ablation of the right great saphenous vein, the right small saphenous vein, and the right accessory saphenous vein. A subsequent venous duplex examination two months later revealed successful ablation of the right great saphenous vein, small saphenous vein, and accessory saphenous vein. The patient subsequently presented with ulcerations which occurred on the right medial malleolus and on the dorsum of the right second toe. The ulceration near the right medial malleolus appeared to be related to the patient's chronic venous disease. The ulceration on the right second toe appeared to be related to pressure from poorly-fitted work boots. The ulceration on the right second toe appeared pressure related, stage II, and likely due to swelling of the foot while wearing work boots. The patient's wound subsequently healed, the patient was discharged for as needed follow-up. Patient has been wearing graduated compression stockings of 20-30 mmHg on a daily basis. 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 The patient had also been instructed to avoid idle standing and sitting. However, it is known that the patient is relatively noncompliant with recommended treatment measures. 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 A noninvasive lower extremity arterial study performed in 2012 was normal. More recently, and noninvasive lower extremity arterial study on April 07, 2018, was also normal. Past Medical History Past Medical History: Chronic Problems Swelling of right lower extremity (Chronic) Edema leg (Chronic) Parkinsons disease (Chronic) Venous hypertension, chronic, with inflammation (Chronic) Varicose veins with inflammation (Chronic) Chronic venous insufficiency (Chronic) History of ulcer of lower extremity (Chronic) Postphlebitic syndrome with inflammation (Chronic) Ulcer, pressure (Chronic) Surgical History: total knee arthroplasty, - - Patient underwent endovenous laser ablation of the right great saphenous vein, the right small saphenous vein, the right accessory saphenous vein on May 04, 2013. Allergies/Adverse Reactions: Allergies No Known Allergies Allergy (Verified 08/28/17 10:21) Home Medications: Ambulatory Orders Medication Instructions Recorded Carbidopa/Levodopa 50/200 [Sinemet 1 tablet PO BIDAC 08/28/17 CR] Warfarin Sodium [Coumadin] 9 mg PO DAILY 08/28/17 - Family History Maternal No pertinent history, - - Patient's father at the age of 92 of old age. Patient's mother at the age of 76 with a history of myocardial infarction. Smoking Status: Never smoker Tobacco Use: Non-smoker Review of Systems Constitutional: Denies: Chills, Fever, Weight Change Eyes: Denies: Pain, Vision Change HEENT: Denies: Difficulty Hearing, Difficulty Swallowing, Sinus Congestion Cardiovascular: Denies: Chest Pain, Palpitations Respiratory: Denies: Cough, Shortness of Breath Gastrointestinal: Denies: Diarrhea, Nausea, Vomiting Genitourinary: Denies: Dysuria, Hematuria Endocrine: Denies: Heat/ Cold Intolerance, Polydipsia, Polyuria Hematologic/ Lymphatic: Denies: Easy Bruising, Easy Bleeding - Physical Exam Vital Signs Temp Pulse Resp BP 99.1 F 68 18 107/70 06/09/18 10:31 06/09/18 10:31 06/09/18 10:31 06/09/18 10:31 General: Alert, Oriented x3, Cooperative, No apparent distress, Well developed, Well nourished HEENT: Atraumatic, PERRLA, EOMI, Normocephalic Oral: Moist Mucosa Neck: No JVD Lungs: Normal air movement Abdomen: Non-Distended Extremities: No clubbing, No cyanosis, No Calf Tenderness, - - The right great toe remains swollen and enlarged, appearing to be chronic in nature. The ulceration on the dorsum of the right great toe remains healed. The ulceration on the dorsum of the right second toe persists, with little change. The base of the ulceration is pink and healthy in appearance. There is a mild amount of bioburden. Dimensions are documented elsewhere. There is no sign of infection or cellulitis. The swelling in the lower extremities appears to be reasonably well controlled. Wound Measurements and Assessment WC - Nurse 1 - General Ulcer Measurement Start: 05/26/18 10:04 Freq: Status: Active Protocol: Activity Type Activity Date Activity User E-Sign Co-Sign Detail Recorded Client Recorded Date Recorded By Document 06/09/18 10:31 DL [id number] 06/09/18 10:36 DL CHITO - Nurse 2 - General Ulcer CM Notes Start: 05/26/18 10:04 Freq: Status: Active Protocol: Activity Type Activity Date Activity User E-Sign Co-Sign Detail Recorded Client Recorded Date Recorded By Document 06/09/18 11:08 CS [id number] 06/09/18 11:09 CS Neurological: Cranial nerves II-XII grossly intact, Neuro grossly intact Psych/Mental Status: Normal Affect, Appropriate, Alert and oriented to time, place, person, mood and affect Debridement Note Post-Debridement Measurements/Treatment WC - Nurse 2 - General Ulcer CM Notes Start: 05/26/18 10:04 Freq: Status: Active Protocol: Activity Type Activity Date Activity User E-Sign Co-Sign Detail Recorded Client Recorded Date Recorded By Wound Center Nurse 2 Laterality: Right - Second toe, dorsal Type of Debridement: Excisional debridement Anesthesia Used: 4% Lidocaine Solution Depth: Down to and including healthy tissue, in the subcutaneous layer Percentage of wound debrided: 100 Instrument Used: 7mm curette Severity: Fat Layer Exposed Amount of bleeding with debridement: Mild Bleeding Controlled with: Compression and gauze Patient tolerated procedure well Assessment/Plan Active Problems Swelling of right lower extremity (Chronic) Edema leg (Chronic) Venous hypertension, chronic, with inflammation (Chronic) Varicose veins with inflammation (Chronic) Chronic venous insufficiency (Chronic) History of ulcer of lower extremity (Chronic) Postphlebitic syndrome with inflammation (Chronic) Ulcer, pressure (Chronic) Assessment: This is a 68-year-old male with a long-standing history of chronic venous disease, as described above. He recently presented with an ulceration on the dorsum of the right great toe. This has extended to involve the adjacent right second toe dorsum. This appears to be pressure related, and likely due to ill fitted footwear. The ulceration on the dorsum of the right great toe is healed. It is suspected that the patient's shoes may be properly fitted, but with swelling which occurs at the end of each day, the shoes may become too tight, causing pressure phenomenon resulting in an ulceration. He claims to have been wearing his graduated compression stockings on a daily basis. He makes an effort to elevate his lower extremities frequently. He sleeps on a flat surface at night. 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 However, given the patient's history, and his recent presentation, it appears as though there is a level of noncompliance which is contributing to the patient's presenting manifestations. He continues to wear his work boots, despite admonitions to do otherwise. Although it does appear as though the patient has recently obtained alternative footwear of a larger size, complying with recommendations for offloading of the critical areas on the dorsum of the toes of the right foot. The swelling, edema, erythema noted in the distal right lower extremity and foot has improved, but does persist. Patient has recently undergone an x-ray of his right foot, which reveals no evidence of osteomyelitis. Plan: Debridement done as documented above. Procedure was well-tolerated. We will continue the use of Aquacel silver. This will be applied every other day. Patient is to continue elevating his lower extremities as much as possible. He is to avoid idle sitting and standing. Activity has been encouraged. He has been advised to continue wearing graduated compression stockings as previously prescribed. Appropriate footwear has also been recommended, to avoid pressure phenomenon. Because of continuing concerns as to offloading of the right foot, we have sought evaluation at [facility] for fitting of foot wear with proper offloading. The evaluation at [facility] has not yet been completed. Our staff will redouble efforts to arrange consultation. It must be sure that the patient is offloading properly, which may require alternative footwear. There is concern that the patient's work boots may be, in part, the source of the problem. The patient wears the same work boots he has had for many years. He wears them for 3-4 hours in the mornings, and 3-4 hours in the afternoons. Concern exists as to possible pressure phenomenon exerted by his work boots, which may be an impediment to the healing process. Our staff will contact [facility] to determine their recommendations, and to expedite the creation of appropriate footwear. Consideration had been given to the use of skin substitutes, but the location of the ulceration, given the contour and motion in this area, renders the use of a skin substitute somewhat undesirable. Patient will return in 1 week for reevaluation. The patient is not a smoker. Influenza vaccine was not administered today. The patient weighs 170 pounds. He stands 6 feet 0 inches tall. His BMI is 23.1, which is normal. 06/09/18 1121 <Electronically signed by Tip Liz MD> Date Tip Liz MD CC: Signed WOUND CTR HISTORY Observed: 06/02/2018 Status: F Source: [facility] 12:10 PM [facility] REPOSITORY [facility] [address] [place] [address] Wound Ctr History AND Physical 06/02/18 1201 MR#: [id number] Acct: [id number] Name: GERARDO FANG Rep #: [id number] : 1950 68 From: Tip Liz MD PCP: Joss Heredia MD Status: REG RCR Y Location: WC (1) Swelling of right lower extremity Status: Chronic Current Visit: Yes Code(s): M79.89 - Other specified soft tissue disorders (2) Edema leg Status: Chronic Current Visit: Yes Code(s): R60.0 - Localized edema (3) Parkinsons disease Status: Chronic Current Visit: No Code(s): G20 - Parkinson's disease (4) Venous hypertension, chronic, with inflammation Status: Chronic Current Visit: Yes Qualifiers: Laterality: bilateral Code(s): I87.329 - Chronic venous hypertension (idiopathic) with inflammation of unspecified lower extremity (5) Varicose veins with inflammation Status: Chronic Current Visit: Yes Code(s): I83.10 - Varicose veins of unspecified lower extremity with inflammation (6) Venous hypertension, chronic, with ulcer and inflammation Status: Resolved Current Visit: Yes Qualifiers: Code(s): I87.339 - Chronic venous hypertension (idiopathic) with ulcer and inflammation of unspecified lower extremity (7) Post-phlebitic dermatosis of right lower extremity Status: Resolved Current Visit: Yes Code(s): I87.091 - Postthrombotic syndrome with other complications of right lower extremity (8) Chronic venous insufficiency Status: Chronic Current Visit: Yes (9) History of ulcer of lower extremity Status: Chronic Current Visit: Yes Code(s): Z87.2 - Personal history of diseases of the skin and subcutaneous tissue (10) Postphlebitic syndrome with inflammation Status: Chronic Current Visit: Yes Code(s): I87.029 - Postthrombotic syndrome with inflammation of unspecified lower extremity (11) Ulcer, pressure Status: Chronic Current Visit: Yes Qualifiers: Pressure injury location: toe Pressure injury stage: stage 2 Laterality: right Qualified Code(s): L89.892 - Pressure ulcer of other site, stage 2 Code(s): L89.90 - Pressure ulcer of unspecified site, unspecified stage History of Present Illness Date of Service: 06/02/18 Chief Complaint: Ulceration of the right second toe History of Wound: This is a 68-year-old male who presented with a one-month history of ulceration on the dorsum of his right great toe. Ulceration on the right great toe subsequently healed, we have been dealing most recently with an ulceration on the dorsum of the right second toe. This appears to be pressure related, likely due to poorly fitted shoes. The patient was not sure as to the etiology. He was suspicious, however, that this may be related to pressure from an-ill fitting shoe. The patient has a long- standing history of chronic venous disease. The patient suffers from chronic venous insufficiency, varicose veins with inflammation and ulceration, venous hypertension with inflammation, postphlebitic syndrome with inflammation, etc. He has been treated for a venous ulceration on the right lateral malleolus, which has healed. He has suffered from venous disease for many years. In April 2013 he underwent endovenous laser ablation of the right great saphenous vein, the right small saphenous vein, and the right accessory saphenous vein. A subsequent venous duplex examination two months later revealed successful ablation of the right great saphenous vein, small saphenous vein, and accessory saphenous vein. The patient subsequently presented with ulcerations which occurred on the right medial malleolus and on the dorsum of the right second toe. The ulceration near the right medial malleolus appeared to be related to the patient's chronic venous disease. The ulceration on the right second toe appeared to be related to pressure from poorly-fitted work boots. The ulceration on the right second toe appeared pressure related, stage II, and likely due to swelling of the foot while wearing work boots. The patient's wound subsequently healed, the patient was discharged for as needed follow-up. Patient has been wearing graduated compression stockings of 20-30 mmHg on a daily basis. 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 The patient had also been instructed to avoid idle standing and sitting. However, it is known that the patient is relatively noncompliant with recommended treatment measures. 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 A noninvasive lower extremity arterial study performed in 2012 was normal. More recently, and noninvasive lower extremity arterial study on April 07, 2018, was also normal. Past Medical History Past Medical History: Chronic Problems Swelling of right lower extremity (Chronic) Edema leg (Chronic) Parkinsons disease (Chronic) Venous hypertension, chronic, with inflammation (Chronic) Varicose veins with inflammation (Chronic) Chronic venous insufficiency (Chronic) History of ulcer of lower extremity (Chronic) Postphlebitic syndrome with inflammation (Chronic) Ulcer, pressure (Chronic) Surgical History: total knee arthroplasty, - - Patient underwent endovenous laser ablation of the right great saphenous vein, the right small saphenous vein, the right accessory saphenous vein on May 04, 2013. Allergies/Adverse Reactions: Allergies No Known Allergies Allergy (Verified 08/28/17 10:21) Home Medications: Ambulatory Orders Medication Instructions Recorded Carbidopa/Levodopa 50/200 [Sinemet 1 tablet PO BIDAC 08/28/17 CR] Warfarin Sodium [Coumadin] 9 mg PO DAILY 08/28/17 - Family History Maternal No pertinent history, - - Patient's father at the age of 92 of old age. Patient's mother at the age of 76 with a history of myocardial infarction. Smoking Status: Never smoker Tobacco Use: Non-smoker Review of Systems Constitutional: Denies: Chills, Fever, Weight Change Eyes: Denies: Pain, Vision Change HEENT: Denies: Difficulty Hearing, Difficulty Swallowing, Sinus Congestion Cardiovascular: Denies: Chest Pain, Palpitations Respiratory: Denies: Cough, Shortness of Breath Gastrointestinal: Denies: Diarrhea, Nausea, Vomiting Genitourinary: Denies: Dysuria, Hematuria Endocrine: Denies: Heat/ Cold Intolerance, Polydipsia, Polyuria Hematologic/ Lymphatic: Denies: Easy Bruising, Easy Bleeding - Physical Exam Vital Signs Temp Pulse Resp BP 97.1 F L 60 18 128/75 H 06/02/18 11:09 06/02/18 11:09 06/02/18 11:06/02/18 11:09 General: Alert, Oriented x3, Cooperative, No apparent distress, Well developed, Well nourished HEENT: Atraumatic, PERRLA, EOMI, Normocephalic Oral: Moist Mucosa Neck: No JVD Lungs: Normal air movement Abdomen: Non-Distended Extremities: No clubbing, No cyanosis, No Calf Tenderness, - - Minimal swelling and edema is noted in the lower extremity. The patient has a stage II pressure ulceration on the dorsum of the right second toe. It appears to be slightly smaller in size. The base of the ulceration is generally pink and healthy in appearance. There is a mild amount of bioburden. Dimensions are documented elsewhere. There is no sign of infection or cellulitis. Wound Measurements and Assessment WC - Nurse 1 - General Ulcer Measurement Start: 05/26/18 10:04 Freq: Status: Active Protocol: Activity Type Activity Date Activity User E-Sign Co-Sign Detail Recorded Client Recorded Date Recorded By Document 06/02/18 11:09 DL [id number] 06/02/18 11:17 DL Wound Center Nurse 1 [Ulcer Assessment] 13-right 2nd toe cluster -Current Size (cm) - Length 1.3 -Current Size (cm) - Width 1.9 WC - Nurse 2 - General Ulcer CM Notes Start: 05/26/18 10:04 Freq: Status: Active Protocol: Activity Type Activity Date Activity User E-Sign Co-Sign Detail Recorded Client Recorded Date Recorded By Document 06/02/18 12:00 SANJUANITA [id number] 06/02/18 12:00 SANJUANITA Wound Center Nurse 2 [Procedure/Treatment] Neurological: Cranial nerves II-XII grossly intact, Neuro grossly intact Psych/Mental Status: Normal Affect, Appropriate, Alert and oriented to time, place, person, mood and affect Debridement Note Post-Debridement Measurements/Treatment WC - Nurse 2 - General Ulcer CM Notes Start: 05/26/18 10:04 Freq: Status: Active Protocol: Activity Type Activity Date Activity User E-Sign Co-Sign Detail Wound Center Nurse 2 13-right 2nd toe cluster -Time 10:28 12:00 Laterality: Right - Second toe, dorsal Type of Debridement: Excisional debridement Anesthesia Used: 4% Lidocaine Solution Depth: Down to and including healthy tissue, in the subcutaneous layer Percentage of wound debrided: 100 Instrument Used: 5mm curette Severity: Fat Layer Exposed Amount of bleeding with debridement: Mild Bleeding Controlled with: Compression and gauze Patient tolerated procedure well Assessment/Plan Active Problems Swelling of right lower extremity (Chronic) Edema leg (Chronic) Venous hypertension, chronic, with inflammation (Chronic) Varicose veins with inflammation (Chronic) Chronic venous insufficiency (Chronic) History of ulcer of lower extremity (Chronic) Postphlebitic syndrome with inflammation (Chronic) Ulcer, pressure (Chronic) Assessment: This is a 68-year-old male with a long-standing history of chronic venous disease, as described above. He recently presented with an ulceration on the dorsum of the right great toe. This has extended to involve the adjacent right second toe dorsum. This appears to be pressure related, and likely due to ill fitted footwear. The ulceration on the dorsum of the right great toe is healed. It is suspected that the patient's shoes may be properly fitted, but with swelling which occurs at the end of each day, the shoes may become too tight, causing pressure phenomenon resulting in an ulceration. He claims to have been wearing his graduated compression stockings on a daily basis. He makes an effort to elevate his lower extremities frequently. He sleeps on a flat surface at night. 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 However, given the patient's history, and his recent presentation, it appears as though there is a level of noncompliance which is contributing to the patient's presenting manifestations. He continues to wear his work boots, despite admonitions to do otherwise. Although it does appear as though the patient has recently obtained alternative footwear of a larger size, complying with recommendations for offloading of the critical areas on the dorsum of the toes of the right foot. The swelling, edema, erythema noted in the distal right lower extremity and foot has improved, but does persist. Patient has recently undergone an x-ray of his right foot, which reveals no evidence of osteomyelitis. Plan: Debridement done as documented above. Procedure was well-tolerated. We will discontinue the use of collagen hydrogel, as there is a hint of maceration peripheral to the ulceration. In its place, we will implement the use of Aquacel silver. This will be applied every other day. Patient is to continue elevating his lower extremities as much as possible. He is to avoid idle sitting and standing. Activity has been encouraged. He has been advised to continue wearing graduated compression stockings as previously prescribed. Appropriate footwear has also been recommended, to avoid pressure phenomenon. Because of continuing concerns as to offloading of the right foot, we have sought evaluation at [facility] for fitting of foot wear with proper offloading. The patient was evaluated last week, we have yet to hear back from [facility]. Our staff will contact them to determine their recommendations, and to expedite the creation of appropriate footwear. Consideration had been given to the use of skin substitutes, but the location of the ulceration, given the contour and motion in this area, renders the use of a skin substitute somewhat undesirable. Patient will return in 1 week for reevaluation. The patient is not a smoker. Influenza vaccine was not administered today. The patient weighs 170 pounds. He stands 6 feet 0 inches tall. His BMI is 23.1, which is normal. 06/02/18 1210 <Electronically signed by Tip Liz MD> Date Tip Liz MD CC: Signed WOUND CTR HISTORY Observed: 05/26/2018 Status: F Source: [facility] 10:50 AM [facility] REPOSITORY [facility] [address] [place] [id number] Wound Ctr History AND Physical 05/26/18 1043 MR#: [id number] Acct: [id number] Name: GERARDO FANG Rep #: [id number] : 1950 68 From: Tip Liz MD PCP: Joss Heredia MD Status: REG RCR Y Location: WC (1) Swelling of right lower extremity Status: Chronic Current Visit: Yes Code(s): M79.89 - Other specified soft tissue disorders (2) Edema leg Status: Chronic Current Visit: Yes Code(s): R60.0 - Localized edema (3) Ulcer of great toe Status: Resolved Current Visit: No Qualifiers: Laterality: right Code(s): L97.509 - Non-pressure chronic ulcer of other part of unspecified foot with unspecified severity (4) Parkinsons disease Status: Chronic Current Visit: No Code(s): G20 - Parkinson's disease (5) Venous hypertension, chronic, with inflammation Status: Chronic Current Visit: Yes Qualifiers: Laterality: bilateral Code(s): I87.329 - Chronic venous hypertension (idiopathic) with inflammation of unspecified lower extremity (6) Varicose veins with inflammation Status: Chronic Current Visit: Yes Code(s): I83.10 - Varicose veins of unspecified lower extremity with inflammation (7) Venous hypertension, chronic, with ulcer and inflammation Status: Chronic Current Visit: Yes Qualifiers: Code(s): I87.339 - Chronic venous hypertension (idiopathic) with ulcer and inflammation of unspecified lower extremity (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 Current Visit: Yes Code(s): I87.091 - Postthrombotic syndrome with other complications of right lower extremity (9) Varicose veins with ulcer and inflammation Status: Resolved Current Visit: No Code(s): I83.209 - Varicose veins of unspecified lower extremity with both ulcer of unspecified site and inflammation; L97.909 - Non-pressure chronic ulcer of unspecified part of unspecified lower leg with unspecified severity (10) Chronic venous insufficiency Status: Chronic Current Visit: Yes (11) Venous ulcer of ankle Status: Resolved Current Visit: No Qualifiers: Code(s): I83.003 - Varicose veins of unspecified lower extremity with ulcer of ankle (12) Venous ulcer of right lower extremity with varicose veins Status: Resolved Current Visit: No Code(s): I83.019 - Varicose veins of right lower extremity with ulcer of unspecified site (13) History of ulcer of lower extremity Status: Chronic Current Visit: No Code(s): Z87.2 - Personal history of diseases of the skin and subcutaneous tissue (14) Postphlebitic syndrome with inflammation Status: Chronic Current Visit: Yes Code(s): I87.029 - Postthrombotic syndrome with inflammation of unspecified lower extremity (15) Ulcer, pressure Status: Chronic Current Visit: Yes Qualifiers: Pressure injury location: toe Pressure injury stage: stage 2 Laterality: right Qualified Code(s): L89.892 - Pressure ulcer of other site, stage 2 Code(s): L89.90 - Pressure ulcer of unspecified site, unspecified stage History of Present Illness Date of Service: 05/26/18 Chief Complaint: Ulceration of the right second toe History of Wound: This is a 68-year-old male who presented with a one-month history of ulceration on the dorsum of his right great toe. The patient was not sure as to the etiology. He was suspicious, however, that this may be related to pressure from an-ill fitting shoe. The patient has a long-standing history of chronic venous disease. The patient suffers from chronic venous insufficiency, varicose veins with inflammation and ulceration, venous hypertension with inflammation, postphlebitic syndrome with inflammation, etc. He has been treated for a venous ulceration on the right lateral malleolus, which has healed. He has suffered from venous disease for many years. In April 2013 he underwent endovenous laser ablation of the right great saphenous vein, the right small saphenous vein, and the right accessory saphenous vein. A subsequent venous duplex examination two months later revealed successful ablation of the right great saphenous vein, small saphenous vein, and accessory saphenous vein. The patient subsequently presented with ulcerations which occurred on the right medial malleolus and on the dorsum of the right second toe. The ulceration near the right medial malleolus appeared to be related to the patient's chronic venous disease. The ulceration on the right second toe appeared to be related to pressure from poorly-fitted work boots. The ulceration on the right second toe appeared pressure related, stage II, and likely due to swelling of the foot while wearing work boots. The patient's wound subsequently healed, the patient was discharged for as needed follow-up. Patient has been wearing graduated compression stockings of 20-30 mmHg on a daily basis. 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 The patient had also been instructed to avoid idle standing and sitting. However, it is known that the patient is relatively noncompliant with recommended treatment measures. 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 A noninvasive lower extremity arterial study performed in 2012 was normal. More recently, and noninvasive lower extremity arterial study on April 07, 2018, was also normal. 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 Allergies/Adverse Reactions: Allergies No Known Allergies Allergy (Verified 08/28/17 10:21) Home Medications: Ambulatory Orders Medication Instructions Recorded Carbidopa/Levodopa 50/200 [Sinemet 1 tablet PO BIDAC 08/28/17 CR] Warfarin Sodium [Coumadin] 9 mg PO DAILY 08/28/17 - Family History Maternal No pertinent history, - - Patient's father at the age of 92 of old age. Patient's mother at the age of 76 with a history of myocardial infarction. Smoking Status: Never smoker Tobacco Use: Non-smoker Review of Systems Constitutional: Denies: Chills, Fever, Weight Change Eyes: Denies: Pain, Vision Change HEENT: Denies: Difficulty Hearing, Difficulty Swallowing, Sinus Congestion Cardiovascular: Denies: Chest Pain, Palpitations Respiratory: Denies: Cough, Shortness of Breath Gastrointestinal: Denies: Diarrhea, Nausea, Vomiting Genitourinary: Denies: Dysuria, Hematuria Endocrine: Denies: Heat/ Cold Intolerance, Polydipsia, Polyuria Hematologic/ Lymphatic: Denies: Easy Bruising, Easy Bleeding - Physical Exam Vital Signs Temp Pulse Resp BP 97.8 F 75 16 111/77 05/26/18 10:04 05/26/18 10:04 05/26/18 10:04 05/26/18 10:04 General: Alert, Oriented x3, Cooperative, No apparent distress, Well developed, Well nourished HEENT: Atraumatic, PERRLA, EOMI, Normocephalic Oral: Moist Mucosa Neck: No JVD Lungs: Normal air movement Abdomen: Non-Distended Extremities: No clubbing, No cyanosis, No Calf Tenderness, - - The swelling and edema in the patient's lower extremities appears to be reasonably well controlled. The ulceration on the dorsum of the right great toe is now completely healed and epithelialized. The ulceration on the dorsum of the right second toe persists, relatively unchanged in size or appearance. The base of the ulceration is pink and healthy in appearance. There is no sign of infection or cellulitis. Dimensions are documented elsewhere. Wound Measurements and Assessment WC - Nurse 1 - General Ulcer Measurement Start: 05/26/18 10:04 Freq: Status: Active Protocol: Activity Type Activity Date Activity User E-Sign Co-Sign Detail Recorded Client Recorded Date Recorded By Document 05/26/18 10:04 [id number] 05/26/18 10:06 CS Wound Center Nurse 1 [Ulcer Assessment] 13-right 2nd toe cluster -Combined with other wound No -Current Size (cm) - Length 2.1 -Current Size (cm) - Width 1.3 WC - Nurse 2 - General Ulcer CM Notes Start: 05/26/18 10:04 Freq: Status: Active Protocol: Activity Type Activity Date Activity User E-Sign Co-Sign Detail Recorded Client Recorded Date Recorded By Document 05/26/18 10:28 JS [id number] 05/26/18 10:32 JS Wound Center Nurse 2 Neurological: Cranial nerves II-XII grossly intact, Neuro grossly intact Psych/Mental Status: Normal Affect, Appropriate, Alert and oriented to time, place, person, mood and affect Debridement Note Post-Debridement Measurements/Treatment WC - Nurse 2 - General Ulcer CM Notes Start: 05/26/18 10:04 Freq: Status: Active Protocol: Activity Type Activity Date Activity User E-Sign Co-Sign Detail Recorded Client Recorded Date Recorded By Document 05/26/18 10:28 [id number] 05/26/18 10:32 Wound Center Nurse 2 13-right 2nd toe cluster -Time 10:28 -Correct Patient Yes -Correct Side, Site, Position Yes Laterality: Right - Second toe, dorsum Type of Debridement: Excisional debridement Anesthesia Used: 4% Lidocaine Solution Depth: Down to and including healthy tissue, in the subcutaneous layer Percentage of wound debrided: 100 Instrument Used: 5mm curette Severity: Fat Layer Exposed Amount of bleeding with debridement: Mild Bleeding Controlled with: Compression and gauze Patient tolerated procedure well Assessment/Plan Active Problems Swelling of right lower extremity (Chronic) Edema leg (Chronic) Venous hypertension, chronic, with inflammation (Chronic) Varicose veins with inflammation (Chronic) Venous hypertension, chronic, with ulcer and inflammation (Chronic) 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 He recently presented with an ulceration on the dorsum of the right great toe. This has extended to involve the adjacent right second toe dorsum. This appears to be pressure related, and likely due to ill fitted footwear. The ulceration on the dorsum of the right great toe is healed. It is suspected that the patient's shoes may be properly fitted, but with swelling which occurs at the end of each day, the shoes may become too tight, causing pressure phenomenon resulting in an ulceration. He claims to have been wearing his graduated compression stockings on a daily basis. He makes an effort to elevate his lower extremities frequently. He sleeps on a flat surface at night. 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 However, given the patient's history, and his recent presentation, it appears as though there is a level of noncompliance which is contributing to the patient's presenting manifestations. He continues to wear his work boots, despite admonitions to do otherwise. Although it does appear as though the patient has recently obtained alternative footwear of a larger size, complying with recommendations for offloading of the critical areas on the dorsum of the toes of the right foot. The swelling, edema, erythema noted in the distal right lower extremity and foot has improved, but does persist. Patient has recently undergone an x-ray of his right foot, which reveals no evidence of osteomyelitis. Plan: Debridement done as documented above. Procedure was well-tolerated. We will discontinue the use of collagen hydrogel, as there is a hint of maceration peripheral to the ulceration. In its place, we will implement the use of Aquacel silver. This will be applied every other day. Patient is to continue elevating his lower extremities as much as possible. He is to avoid idle sitting and standing. Activity has been encouraged. He has been advised to continue wearing graduated compression stockings as previously prescribed. Appropriate footwear has also been recommended, to avoid pressure phenomenon. Because of continuing concerns as to offloading of the right foot, we are to seek evaluation at [facility] for fitting of foot wear with proper offloading. The patient has an appointment with [facility] this afternoon, and hopes that he will be fitted with properly fitted shoes. Consideration had been given to the use of skin substitutes, but the location of the ulceration, given the contour and motion in this area, renders the use of a skin substitute somewhat undesirable. Patient will return in 1 week for reevaluation. The patient is not a smoker. Influenza vaccine was not administered today. The patient weighs 170 pounds. He stands 6 feet 0 inches tall. His BMI is 23.1, which is normal. 05/26/18 1050 <Electronically signed by Tip Liz MD> Date Tip Liz MD CC: Signed WOUND CTR HISTORY Observed: 05/19/2018 Status: F Source: [facility] 12:01 PM [facility] REPOSITORY [facility] [address] [place] [address] Wound Ctr History AND Physical 05/19/18 1154 MR#: [id number] Acct: [id number] Name: GERARDO FANG Rep #: [id number] : 1950 68 From: Tip Liz MD PCP: Joss Heredia MD Status: REG RCR Y Location: WC (1) Swelling of right lower extremity Status: Chronic Current Visit: Yes Code(s): M79.89 - Other specified soft tissue disorders (2) Edema leg Status: Chronic Current Visit: Yes Code(s): R60.0 - Localized edema (3) Ulcer of great toe Status: Chronic Current Visit: Yes Qualifiers: Laterality: right Non-pressure ulcer stage: with fat layer exposed Qualified Code(s): L97.512 - Non-pressure chronic ulcer of other part of right foot with fat layer exposed Code(s): L97.509 - Non-pressure chronic ulcer of other part of unspecified foot with unspecified severity (4) Parkinsons disease Status: Chronic Current Visit: No Code(s): G20 - Parkinson's disease (5) Venous hypertension, chronic, with inflammation Status: Chronic Current Visit: No Qualifiers: Laterality: bilateral Code(s): I87.329 - Chronic venous hypertension (idiopathic) with inflammation of unspecified lower extremity (6) Varicose veins with inflammation Status: Chronic Current Visit: No Code(s): I83.10 - Varicose veins of unspecified lower extremity with inflammation (7) Venous hypertension, chronic, with ulcer and inflammation Status: Chronic Current Visit: No Qualifiers: Laterality: bilateral Qualified Code(s): I87.333 - Chronic venous hypertension (idiopathic) with ulcer and inflammation of bilateral lower extremity; L97.919 - Non-pressure chronic ulcer of unspecified part of right lower leg with unspecified severity; L97.929 - Non-pressure chronic ulcer of unspecified part of left lower leg with unspecified severity Code(s): I87.339 - Chronic venous hypertension (idiopathic) with ulcer and inflammation of unspecified lower extremity (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 Current Visit: No Code(s): I87.091 - Postthrombotic syndrome with other complications of right lower extremity (9) Varicose veins with ulcer and inflammation Status: Chronic Current Visit: No Code(s): I83.209 - Varicose veins of unspecified lower extremity with both ulcer of unspecified site and inflammation; L97.909 - Non-pressure chronic ulcer of unspecified part of unspecified lower leg with unspecified severity (10) Chronic venous insufficiency Status: Chronic Current Visit: No (11) History of ulcer of lower extremity Status: Chronic Current Visit: No Code(s): Z87.2 - Personal history of diseases of the skin and subcutaneous tissue (12) Postphlebitic syndrome with inflammation Status: Chronic Current Visit: No Code(s): I87.029 - Postthrombotic syndrome with inflammation of unspecified lower extremity (13) Ulcer, pressure Status: Chronic Current Visit: Yes Qualifiers: Pressure injury location: toe Pressure injury stage: stage 2 Laterality: right Qualified Code(s): L89.892 - Pressure ulcer of other site, stage 2 Code(s): L89.90 - Pressure ulcer of unspecified site, unspecified stage History of Present Illness Date of Service: 05/19/18 Chief Complaint: Ulceration of the right great and second toe History of Wound: This is a 68-year-old male who presented with a one-month history of ulceration on the dorsum of his right great toe. The patient was not sure as to the etiology. He is suspicious, however, that this may be related to pressure from an-ill fitting shoe. The patient has a long-standing history of chronic venous disease. The patient suffers from chronic venous insufficiency, varicose veins with inflammation and ulceration, venous hypertension with inflammation, postphlebitic syndrome with inflammation, etc. He has been treated for a venous ulceration on the right lateral malleolus, which has healed. He has suffered from venous disease for many years. In April 2013 he underwent endovenous laser ablation of the right great saphenous vein, the right small saphenous vein, and the right accessory saphenous vein. A subsequent venous duplex examination two months later revealed successful ablation of the right great saphenous vein, small saphenous vein, and accessory saphenous vein. The patient subsequently presented with ulcerations which occurred on the right medial malleolus and on the dorsum of the right second toe. The ulceration near the right medial malleolus appeared to be related to the patient's chronic venous disease. The ulceration on the right second toe appeared to be related to pressure from poorly-fitted work boots. The ulceration on the right second toe appeared pressure related, stage II, and likely due to swelling of the foot while wearing work boots. The patient's wound subsequently healed, the patient was discharged for as needed follow-up. Patient has been wearing graduated compression stockings of 20-30 mmHg on a daily basis. 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 The patient had also been instructed to avoid idle standing and sitting. However, it is known that the patient is relatively noncompliant with recommended treatment measures. 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 A noninvasive lower extremity arterial study performed in 2012 was normal. More recently, and noninvasive lower extremity arterial study on April 07, 2018, was also normal. 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 Allergies/Adverse Reactions: Allergies No Known Allergies Allergy (Verified 08/28/17 10:21) Home Medications: Ambulatory Orders Medication Instructions Recorded Carbidopa/Levodopa 50/200 [Sinemet 1 tablet PO BIDAC 08/28/17 CR] Warfarin Sodium [Coumadin] 9 mg PO DAILY 08/28/17 - Family History Maternal No pertinent history, - - Patient's father at the age of 92 of old age. Patient's mother at the age of 76 with a history of myocardial infarction. Smoking Status: Never smoker Tobacco Use: Non-smoker Review of Systems Constitutional: Denies: Chills, Fever, Weight Change Eyes: Denies: Pain, Vision Change HEENT: Denies: Difficulty Hearing, Difficulty Swallowing, Sinus Congestion Cardiovascular: Denies: Chest Pain, Palpitations Respiratory: Denies: Cough, Shortness of Breath Gastrointestinal: Denies: Diarrhea, Nausea, Vomiting Genitourinary: Denies: Dysuria, Hematuria Endocrine: Denies: Heat/ Cold Intolerance, Polydipsia, Polyuria Hematologic/ Lymphatic: Denies: Easy Bruising, Easy Bleeding - Physical Exam Vital Signs Temp Pulse Resp BP 98.9 F 64 16 116/71 05/19/18 10:57 05/19/18 10:57 05/19/18 10:57 05/19/18 10:57 General: Alert, Oriented x3, Cooperative, No apparent distress, Well developed, Well nourished HEENT: Atraumatic, PERRLA, EOMI, Normocephalic Oral: Moist Mucosa Neck: No JVD Lungs: Normal air movement Abdomen: Non-Distended Extremities: No clubbing, No cyanosis, No Calf Tenderness, - - Mild swelling and edema persist in the right foot. The ulceration on the dorsum of the right great toe appears to be completely healed. The ulceration on the dorsum of the right second toe is slightly enlarged. Dimensions are documented elsewhere. The base of the ulceration is pink and healthy in appearance, with a mild to moderate amount of bioburden. There is no sign of infection or cellulitis. Skin: No rashes Wound Measurements and Assessment WC - Nurse 1 - General Ulcer Measurement Start: 04/28/18 10:37 Freq: Status: Active Protocol: Activity Type Activity Date Activity User E-Sign Co-Sign Detail Recorded Client Recorded Date Recorded By Document 05/19/18 10:57 [id number] [id number] 05/19/18 11:07 Wound Center Nurse 1 [Ulcer Assessment] 13-right 2nd toe cluster -Combined with other wound No WC - Nurse 2 - General Ulcer CM Notes Start: 04/28/18 10:37 Freq: Status: Active Protocol: Activity Type Activity Date Activity User E-Sign Co-Sign Detail Recorded Client Recorded Date Recorded By Document 05/19/18 11:46 [id number] 05/19/18 11:50 JS Wound Center Nurse 2 [Procedure/Treatment] 13-right 2nd toe cluster -Time 11:48 -Correct Patient Yes Musculoskeletal: No Muscle Wasting Neurological: Cranial nerves II-XII grossly intact, Neuro grossly intact Psych/Mental Status: Normal Affect, Appropriate, Alert and oriented to time, place, person, mood and affect Debridement Note Post-Debridement Measurements/Treatment WC - Nurse 2 - General Ulcer CM Notes Start: 04/28/18 10:37 Freq: Status: Active Protocol: Activity Type Activity Date Activity User E-Sign Co-Sign Detail Recorded Client Recorded Date Recorded By Document 04/28/18 11:36 [id number] 04/28/18 11:46 Wound Center Nurse 2 13-right 2nd toe cluster -Time 11:48 Laterality: Right - Dorsum of second toe Type of Debridement: Excisional debridement Anesthesia Used: 4% Lidocaine Solution Depth: Down to and including healthy tissue, in the subcutaneous layer Percentage of wound debrided: 100 Instrument Used: 5mm curette Severity: Fat Layer Exposed Amount of bleeding with debridement: Mild Bleeding Controlled with: Compression and gauze Patient tolerated procedure well Assessment/Plan Clinical Impression(s) from Imaging Studies Toe X-Ray 05/12/18 12:08 IMPRESSION: Swelling of the big toe with no indication of osteomyelitis or fractures Electronically Signed: Hi Luis, at 7:52 EDT Tel , Service support , Active Problems Swelling of right lower extremity (Chronic) Edema leg (Chronic) Ulcer of great toe (Chronic) Ulcer, pressure (Chronic) Assessment: This is a 68-year-old male with a long-standing history of chronic venous disease, as described above. He recently presented with an ulceration on the dorsum of the right great toe. This has extended to involve the adjacent right second toe dorsum. This appears to be pressure related, and likely due to ill fitted footwear. The ulceration on the dorsum of the right great toe appears to be essentially healed. It is suspected that the patient's shoes may be properly fitted, but with swelling which occurs at the end of each day, the shoes may become too tight, causing pressure phenomenon resulting in an ulceration. He claims to have been wearing his graduated compression stockings on a daily basis. He makes an effort to elevate his lower extremities frequently. He sleeps on a flat surface at night. 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 However, given the patient's history, and his recent presentation, it appears as though there is a level of noncompliance which is contributing to the patient's presenting manifestations. He continues to wear his work boots, despite admonitions to do otherwise. Although it does appear as though the patient has recently obtained alternative footwear of a larger size, complying with recommendations for offloading of the critical areas on the dorsum of the toes of the right foot. The swelling, edema, erythema noted in the distal right lower extremity and foot has improved, but does persist. Patient has recently undergone an x-ray of his right foot, which reveals no evidence of osteomyelitis. Plan: Debridement done as documented above. Procedure was well-tolerated. We will continue the use of collagen hydrogel topically on a daily basis. . Patient is to continue elevating his lower extremities as much as possible. He is to avoid idle sitting and standing. Activity has been encouraged. He has been advised to continue wearing graduated compression stockings as previously prescribed. Appropriate footwear has also been recommended, to avoid pressure phenomenon. Because of continuing concerns as to offloading of the right foot, we are to seek evaluation at [facility] for fitting of foot wear with proper offloading. Patient will return in 1 week for reevaluation. The patient is not a smoker. Influenza vaccine was not administered today. The patient weighs 170 pounds. He stands 6 feet 0 inches tall. His BMI is 23.1, which is normal. 05/19/18 1201 <Electronically signed by Tip Liz MD> Date Tip Liz MD CC: Signed TOE(S) MIN 2 VIEWS Observed: 05/12/2018 Status: F Source: [facility] 12:08 PM [facility] REPOSITORY [facility] Imaging Services [address] [place] [address] Toe(s) Min 2 Views MR#: [id number] Acct: [id number] Name: GERARDO FANG Rep #: [id number] : 1950 M 68 From: Hi Luis MD PCP: Joss Heredia MD Status: REG RCR Study: Toe(s) Min 2 Views Date of Exam: 05/12/18 Exam# [id number] Ordering Dr: Tip Liz MD STUDY: X-RAY RIGHT FOOT, TOE REASON FOR EXAM: Male, 68 years old. Swollen big toe TECHNIQUE: 4 view(s) of the toe were obtained. COMPARISON: None. FINDINGS: There is swelling of the right pigtail but no changes of osteomyelitis and no fractures. The second through fifth toes also do not show any indication of fractures or osteomyelitis.. RAD/Toe(s) Min 2 Views IMPRESSION: Swelling of the big toe with no indication of osteomyelitis or fractures Electronically Signed: Hi Luis, at 7:52 EDT Tel , Service support , CC: Tip Liz MD; Joss Heredia MD Account Information Clerk: Signed WOUND CTR HISTORY Observed: 05/12/2018 Status: F Source: [facility] AND PHYSICAL 11:45 AM [facility] REPOSITORY [facility] Wound Healing Center [address] [place] [address] Wound Ctr History AND Physical 05/12/18 1138 MR#: [id number] Acct: [id number] Name: GERARDO FANG Rep #: [id number] : 1950 68 From: Tip Liz MD PCP: Joss Heredia MD Status: REG RCR Y Location: (1) Swelling of right lower extremity Status: Chronic Current Visit: Yes Code(s): M79.89 - Other specified soft tissue disorders (2) Edema leg Status: Chronic Current Visit: Yes Code(s): R60.0 - Localized edema (3) Ulcer of great toe Status: Chronic Current Visit: Yes Qualifiers: Laterality: right Non-pressure ulcer stage: with fat layer exposed Qualified Code(s): L97.512 - Non-pressure chronic ulcer of other part of right foot with fat layer exposed Code(s): L97.509 - Non-pressure chronic ulcer of other part of unspecified foot with unspecified severity (4) Parkinsons disease Status: Chronic Current Visit: No Code(s): G20 - Parkinson's disease (5) Venous hypertension, chronic, with inflammation Status: Chronic Current Visit: No Qualifiers: Laterality: bilateral Code(s): I87.329 - Chronic venous hypertension (idiopathic) with inflammation of unspecified lower extremity (6) Varicose veins with inflammation Status: Chronic Current Visit: No Code(s): I83.10 - Varicose veins of unspecified lower extremity with inflammation (7) Venous hypertension, chronic, with ulcer and inflammation Status: Chronic Current Visit: No Qualifiers: Laterality: bilateral Qualified Code(s): I87.333 - Chronic venous hypertension (idiopathic) with ulcer and inflammation of bilateral lower extremity; L97.919 - Non-pressure chronic ulcer of unspecified part of right lower leg with unspecified severity; L97.929 - Non-pressure chronic ulcer of unspecified part of left lower leg with unspecified severity Code(s): I87.339 - Chronic venous hypertension (idiopathic) with ulcer and inflammation of unspecified lower extremity (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 Current Visit: No Code(s): I87.091 - Postthrombotic syndrome with other complications of right lower extremity (9) Varicose veins with ulcer and inflammation Status: Chronic Current Visit: No Code(s): I83.209 - Varicose veins of unspecified lower extremity with both ulcer of unspecified site and inflammation; L97.909 - Non-pressure chronic ulcer of unspecified part of unspecified lower leg with unspecified severity (10) Chronic venous insufficiency Status: Chronic Current Visit: No (11) History of ulcer of lower extremity Status: Chronic Current Visit: No Code(s): Z87.2 - Personal history of diseases of the skin and subcutaneous tissue (12) Postphlebitic syndrome with inflammation Status: Chronic Current Visit: No Code(s): I87.029 - Postthrombotic syndrome with inflammation of unspecified lower extremity (13) Ulcer, pressure Status: Chronic Current Visit: Yes Qualifiers: Pressure injury location: toe Pressure injury stage: stage 2 Laterality: right Qualified Code(s): L89.892 - Pressure ulcer of other site, stage 2 Code(s): L89.90 - Pressure ulcer of unspecified site, unspecified stage History of Present Illness Date of Service: 05/12/18 Chief Complaint: Ulceration of the right great and second toe History of Wound: This is a 68-year-old male who presented with a one-month history of ulceration on the dorsum of his right great toe. The patient was not sure as to the etiology. He is suspicious, however, that this may be related to pressure from an-ill fitting shoe. The patient has a long-standing history of chronic venous disease. The patient suffers from chronic venous insufficiency, varicose veins with inflammation and ulceration, venous hypertension with inflammation, postphlebitic syndrome with inflammation, etc. He has been treated for a venous ulceration on the right lateral malleolus, which has healed. He has suffered from venous disease for many years. In April 2013 he underwent endovenous laser ablation of the right great saphenous vein, the right small saphenous vein, and the right accessory saphenous vein. A subsequent venous duplex examination two months later revealed successful ablation of the right great saphenous vein, small saphenous vein, and accessory saphenous vein. The patient subsequently presented with ulcerations which occurred on the right medial malleolus and on the dorsum of the right second toe. The ulceration near the right medial malleolus appeared to be related to the patient's chronic venous disease. The ulceration on the right second toe appeared to be related to pressure from poorly-fitted work boots. The ulceration on the right second toe appeared pressure related, stage II, and likely due to swelling of the foot while wearing work boots. The patient's wound subsequently healed, the patient was discharged for as needed follow-up. Patient has been wearing graduated compression stockings of 20-30 mmHg on a daily basis. 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 The patient had also been instructed to avoid idle standing and sitting. However, it is known that the patient is relatively noncompliant with recommended treatment measures. 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 A noninvasive lower extremity arterial study performed in 2012 was normal. More recently, and noninvasive lower extremity arterial study on April 07, 2018, was also normal. 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 Allergies/Adverse Reactions: Allergies No Known Allergies Allergy (Verified 08/28/17 10:21) Home Medications: Ambulatory Orders Medication Instructions Recorded Carbidopa/Levodopa 50/200 [Sinemet 1 tablet PO BIDAC 08/28/17 CR] Warfarin Sodium [Coumadin] 9 mg PO DAILY 08/28/17 - Family History Maternal No pertinent history, - - Patient's father at the age of 92 of old age. Patient's mother at the age of 76 with a history of myocardial infarction. Smoking Status: Never smoker Tobacco Use: Non-smoker Review of Systems Constitutional: Denies: Chills, Fever, Weight Change Eyes: Denies: Pain, Vision Change HEENT: Denies: Difficulty Hearing, Difficulty Swallowing, Sinus Congestion Cardiovascular: Denies: Chest Pain, Palpitations Respiratory: Denies: Cough, Shortness of Breath Gastrointestinal: Denies: Diarrhea, Nausea, Vomiting Genitourinary: Denies: Dysuria, Hematuria Endocrine: Denies: Heat/ Cold Intolerance, Polydipsia, Polyuria Hematologic/ Lymphatic: Denies: Easy Bruising, Easy Bleeding - Physical Exam Vital Signs Temp Pulse Resp BP 98.0 F 59 L 18 126/77 H 05/12/18 10:42 05/12/18 10:42 05/12/18 10:42 05/12/18 10:42 General: Alert, Oriented x3, Cooperative, No apparent distress, Well developed, Well nourished HEENT: Atraumatic, PERRLA, EOMI, Normocephalic Oral: Moist Mucosa Neck: No JVD Lungs: Normal air movement Abdomen: Non-Distended Extremities: No clubbing, No cyanosis, No Calf Tenderness, - - Swelling and edema in the lower extremities is reasonably well controlled, and is only minimal. The right great toe is swollen, however. The ulceration on the dorsum of the right great toe shows significant improvement. The medial aspect of the ulceration is epithelialized. The lateral portion remains open, though nearly healed. The ulceration on the dorsum of the right second toe is little changed in appearance. It does appear somewhat desiccated, however. There is no sign of infection or cellulitis. Dimensions are documented elsewhere. Wound Measurements and Assessment WC - Nurse 1 - General Ulcer Measurement Start: 04/28/18 10:37 Freq: Status: Active Protocol: Activity Type Activity Date Activity User E-Sign Co-Sign Detail Recorded Client Recorded Date Recorded By Document 05/12/18 10:42 [id number] 05/12/18 10:45 Neurological: Cranial nerves II-XII grossly intact, Neuro grossly intact Psych/Mental Status: Normal Affect, Appropriate, Alert and oriented to time, place, person, mood and affect Debridement Note Post-Debridement Measurements/Treatment WC - Nurse 2 - General Ulcer CM Notes Start: 04/28/18 10:37 Freq: Status: Active Protocol: Activity Type Activity Date Activity User E-Sign Co-Sign Detail Laterality: Right - Great toe dorsum Type of Debridement: Excisional debridement Anesthesia Used: 4% Lidocaine Solution Depth: Down to and including healthy tissue, in the subcutaneous layer Percentage of wound debrided: 100 Instrument Used: 3mm curette Severity: Fat Layer Exposed Amount of bleeding with debridement: Mild Bleeding Controlled with: Compression and gauze Patient tolerated procedure well - Additional Wound Laterality: Right - Second toe dorsum Type of Debridement: Excisional debridement Anesthesia Used: 4% Lidocaine Solution Depth: Down to and including healthy tissue, in the subcutaneous layer Percentage of wound debrided: 100 Instrument Used: 3mm curette Severity: Fat Layer Exposed Amount of bleeding with debridement: Mild Bleeding Controlled with: Compression and gauze Patient tolerated procedure: Patient tolerated procedure well Assessment/Plan Active Problems Swelling of right lower extremity (Chronic) Edema leg (Chronic) Ulcer of great toe (Chronic) Ulcer, pressure (Chronic) Assessment: This is a 68-year-old male with a long-standing history of chronic venous disease, as described above. He recently presented with an ulceration on the dorsum of the right great toe. This has extended to involve the adjacent right second toe dorsum. This appears to be pressure related, and likely due to ill fitted footwear. The ulceration on the dorsum of the right great toe appears to be essentially healed. It is suspected that the patient's shoes may be properly fitted, but with swelling which occurs at the end of each day, the shoes may become too tight, causing pressure phenomenon resulting in an ulceration. He claims to have been wearing his graduated compression stockings on a daily basis. He makes an effort to elevate his lower extremities frequently. He sleeps on a flat surface at night. 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 However, given the patient's history, and his recent presentation, it appears as though there is a level of noncompliance which is contributing to the patient's presenting manifestations. He continues to wear his work boots, despite admonitions to do otherwise. Although it does appear as though the patient has recently obtained alternative footwear of a larger size, complying with recommendations for offloading of the critical areas on the dorsum of the toes of the right foot. The swelling, edema, erythema noted in the distal right lower extremity and foot several weeks ago has now resolved. Patient has completed his prescription for doxycycline. Plan: Debridement done as documented above. Procedure was well-tolerated. We will implement the use of collagen hydrogel topically on a daily basis. . Patient is to continue elevating his lower extremities as much as possible. He is to avoid idle sitting and standing. Activity has been encouraged. He has been advised to continue wearing graduated compression stockings as previously prescribed. Appropriate footwear has also been recommended, to avoid pressure phenomenon. Because of the persistent swelling in the right great toe, we will obtain an x-ray to determine whether there is underlying pathology. Patient will return in 1 week for reevaluation. The patient is not a smoker. Influenza vaccine was not administered today. The patient weighs 170 pounds. He stands 6 feet 0 inches tall. His BMI is 23.1, which is normal. 05/12/18 1145 <Electronically signed by Tip Liz MD> Date Tip Liz MD CC: Signed WOUND CTR HISTORY Observed: 05/05/2018 Status: F Source: [facility] PHYSICAL 11:48 AM [facility] REPOSITORY [facility] Wound Healing Center [address] [place] [id number] Wound Ctr History AND Physical 05/05/18 1143 MR#: [id number] Acct: [id number] Name: GERARDO FANG Rep #: [id number] : 1950 68 From: Tip Liz MD PCP: Joss Heredia MD Status: REG RCR Y Location: WC (1) Swelling of right lower extremity Status: Chronic Current Visit: Yes Code(s): M79.89 - Other specified soft tissue disorders (2) Edema leg Status: Chronic Current Visit: Yes Code(s): R60.0 - Localized edema (3) Ulcer of great toe Status: Chronic Current Visit: Yes Qualifiers: Laterality: right Non-pressure ulcer stage: with fat layer exposed Qualified Code(s): L97.512 - Non-pressure chronic ulcer of other part of right foot with fat layer exposed Code(s): L97.509 - Non-pressure chronic ulcer of other part of unspecified foot with unspecified severity (4) Parkinsons disease Status: Chronic Current Visit: No Code(s): G20 - Parkinson's disease (5) Venous hypertension, chronic, with inflammation Status: Chronic Current Visit: No Qualifiers: Laterality: bilateral Code(s): I87.329 - Chronic venous hypertension (idiopathic) with inflammation of unspecified lower extremity (6) Varicose veins with inflammation Status: Chronic Current Visit: No Code(s): I83.10 - Varicose veins of unspecified lower extremity with inflammation (7) Venous hypertension, chronic, with ulcer and inflammation Status: Chronic Current Visit: No Qualifiers: Laterality: bilateral Qualified Code(s): I87.333 - Chronic venous hypertension (idiopathic) with ulcer and inflammation of bilateral lower extremity; L97.919 - Non-pressure chronic ulcer of unspecified part of right lower leg with unspecified severity; L97.929 - Non-pressure chronic ulcer of unspecified part of left lower leg with unspecified severity Code(s): I87.339 - Chronic venous hypertension (idiopathic) with ulcer and inflammation of unspecified lower extremity (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 Current Visit: No Code(s): I87.091 - Postthrombotic syndrome with other complications of right lower extremity (9) Varicose veins with ulcer and inflammation Status: Chronic Current Visit: No Code(s): I83.209 - Varicose veins of unspecified lower extremity with both ulcer of unspecified site and inflammation; L97.909 - Non-pressure chronic ulcer of unspecified part of unspecified lower leg with unspecified severity (10) Chronic venous insufficiency Status: Chronic Current Visit: No (11) History of ulcer of lower extremity Status: Chronic Current Visit: No Code(s): Z87.2 - Personal history of diseases of the skin and subcutaneous tissue (12) Postphlebitic syndrome with inflammation Status: Chronic Current Visit: No Code(s): I87.029 - Postthrombotic syndrome with inflammation of unspecified lower extremity (13) Ulcer, pressure Status: Chronic Current Visit: Yes Qualifiers: Pressure injury location: toe Pressure injury stage: stage 2 Laterality: right Qualified Code(s): L89.892 - Pressure ulcer of other site, stage 2 Code(s): L89.90 - Pressure ulcer of unspecified site, unspecified stage History of Present Illness Date of Service: 05/05/18 Chief Complaint: Ulceration of the right great and second toe History of Wound: This is a 68-year-old male who presented with a one-month history of ulceration on the dorsum of his right great toe. The patient was not sure as to the etiology. He is suspicious, however, that this may be related to pressure from an-ill fitting shoe. The patient has a long-standing history of chronic venous disease. The patient suffers from chronic venous insufficiency, varicose veins with inflammation and ulceration, venous hypertension with inflammation, postphlebitic syndrome with inflammation, etc. He has been treated for a venous ulceration on the right lateral malleolus, which has healed. He has suffered from venous disease for many years. In April 2013 he underwent endovenous laser ablation of the right great saphenous vein, the right small saphenous vein, and the right accessory saphenous vein. A subsequent venous duplex examination two months later revealed successful ablation of the right great saphenous vein, small saphenous vein, and accessory saphenous vein. The patient subsequently presented with ulcerations which occurred on the right medial malleolus and on the dorsum of the right second toe. The ulceration near the right medial malleolus appeared to be related to the patient's chronic venous disease. The ulceration on the right second toe appeared to be related to pressure from poorly-fitted work boots. The ulceration on the right second toe appeared pressure related, stage II, and likely due to swelling of the foot while wearing work boots. The patient's wound subsequently healed, the patient was discharged for as needed follow-up. Patient has been wearing graduated compression stockings of 20-30 mmHg on a daily basis. 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 The patient had also been instructed to avoid idle standing and sitting. However, it is known that the patient is relatively noncompliant with recommended treatment measures. 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 A noninvasive lower extremity arterial study performed in 2012 was normal. More recently, and noninvasive lower extremity arterial study on April 07, 2018, was also normal. 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 Allergies/Adverse Reactions: Allergies No Known Allergies Allergy (Verified 08/28/17 10:21) Home Medications: Ambulatory Orders Medication Instructions Recorded Carbidopa/Levodopa 50/200 [Sinemet 1 tablet PO BIDAC 08/28/17 CR] Warfarin Sodium [Coumadin] 9 mg PO DAILY 08/28/17 - Family History Maternal No pertinent history, - - Patient's father at the age of 92 of old age. Patient's mother at the age of 76 with a history of myocardial infarction. Smoking Status: Never smoker Tobacco Use: Non-smoker Review of Systems Constitutional: Denies: Chills, Fever, Weight Change Eyes: Denies: Pain, Vision Change HEENT: Denies: Difficulty Hearing, Difficulty Swallowing, Sinus Congestion Cardiovascular: Denies: Chest Pain, Palpitations Respiratory: Denies: Cough, Shortness of Breath Gastrointestinal: Denies: Diarrhea, Nausea, Vomiting Genitourinary: Denies: Dysuria, Hematuria Endocrine: Denies: Heat/ Cold Intolerance, Polydipsia, Polyuria Hematologic/ Lymphatic: Denies: Easy Bruising, Easy Bleeding - Physical Exam Vital Signs Temp Pulse Resp BP 98.9 F 69 20 H 121/72 H 05/05/18 10:32 05/05/18 10:32 05/05/18 10:32 05/05/18 10:32 General: Alert, Oriented x3, Cooperative, No apparent distress, Well developed, Well nourished HEENT: Atraumatic, PERRLA, EOMI, Normocephalic Oral: Moist Mucosa Neck: No JVD Lungs: Normal air movement Abdomen: Non-Distended Extremities: No clubbing, No cyanosis, No Calf Tenderness, - - The swelling and edema in the lower extremities appears to be reasonably well controlled. The ulceration on the dorsum of the right great toe appears to be essentially healed. The ulceration on the dorsum of the right second toe persists, with little change in appearance. There is no sign of infection or cellulitis. Dimensions are documented elsewhere. There is a moderate amount of bioburden. Wound Measurements and Assessment WC - Nurse 1 - General Ulcer Measurement Start: 04/28/18 10:37 Freq: Status: Active Protocol: Activity Type Activity Date Activity User E-Sign Co-Sign Detail Recorded Client Recorded Date Recorded By Document 05/05/18 10:32 DL [id number] 05/05/18 10:42 DL Wound Center Nurse 1 [Ulcer Assessment] 13-right 2nd toe cluster -Current Size (cm) - Length 0.8 -Current Size (cm) - Width 1 -Current Size (cm) - Depth 0.2 WC - Nurse 2 - General Ulcer CM Notes Start: 04/28/18 10:37 Freq: Status: Active Protocol: Activity Type Activity Date Activity User E-Sign Co-Sign Detail Recorded Client Recorded Date Recorded By Document 05/05/18 11:31 SANJUANITA [id number] 05/05/18 11:38 JS Wound Center Nurse 2 [Procedure/Treatment] 13-right 2nd toe cluster -Time 11:31 -Correct Patient Yes -Correct Side, Site, Position Yes -Correct Procedure Yes Neurological: Cranial nerves II-XII grossly intact, Neuro grossly intact Psych/Mental Status: Normal Affect, Appropriate, Alert and oriented to time, place, person, mood and affect Debridement Note Post-Debridement Measurements/Treatment WC - Nurse 2 - General Ulcer CM Notes Start: 04/28/18 10:37 Freq: Status: Active Protocol: Activity Type Activity Date Activity User E-Sign Co-Sign Detail Laterality: Right - Dorsal second toe Type of Debridement: Excisional debridement Anesthesia Used: 4% Lidocaine Solution Depth: Down to and including healthy tissue, in the subcutaneous layer Percentage of wound debrided: 100 Instrument Used: 5mm curette Severity: Fat Layer Exposed Amount of bleeding with debridement: Mild Bleeding Controlled with: Compression and gauze Patient tolerated procedure well Assessment/Plan Active Problems Swelling of right lower extremity (Chronic) Edema leg (Chronic) Ulcer of great toe (Chronic) Ulcer, pressure (Chronic) Assessment: This is a 68-year-old male with a long-standing history of chronic venous disease, as described above. He recently presented with an ulceration on the dorsum of the right great toe. This has extended to involve the adjacent right second toe dorsum. This appears to be pressure related, and likely due to ill fitted footwear. The ulceration on the dorsum of the right great toe appears to be essentially healed. It is suspected that the patient's shoes may be properly fitted, but with swelling which occurs at the end of each day, the shoes may become too tight, causing pressure phenomenon resulting in an ulceration. He claims to have been wearing his graduated compression stockings on a daily basis. He makes an effort to elevate his lower extremities frequently. He sleeps on a flat surface at night. 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 However, given the patient's history, and his recent presentation, it appears as though there is a level of noncompliance which is contributing to the patient's presenting manifestations. He continues to wear his work boots, despite admonitions to do otherwise. Although it does appear as though the patient has recently obtained alternative footwear of a larger size, complying with recommendations for offloading of the critical areas on the dorsum of the toes of the right foot. The swelling, edema, erythema noted in the distal right lower extremity and foot several weeks ago has now resolved. Patient has completed his prescription for doxycycline. Plan: Debridement done as documented above. Procedure was well-tolerated. We will continue the use of Elma, which will be applied either daily or every other day. Patient is to continue elevating his lower extremities as much as possible. He is to avoid idle sitting and standing. Activity has been encouraged. He has been advised to continue wearing graduated compression stockings as previously prescribed. Appropriate footwear has also been recommended, to avoid pressure phenomenon. Patient will return in 1 week for reevaluation. The patient is not a smoker. Influenza vaccine was not administered today. The patient weighs 170 pounds. He stands 6 feet 0 inches tall. His BMI is 23.1, which is normal. 05/05/18 1148 <Electronically signed by Tip Liz MD> Date Tip Liz MD CC: Signed WOUND CTR HISTORY Observed: 04/28/2018 Status: F Source: [facility] 11:56 AM [facility] REPOSITORY [facility] [address] [place], [place] [address] [address] Wound Ctr History AND Physical 04/28/18 1148 MR#: [id number] Acct: [id number] Name: GERARDO FANG Rep #: [id number] : 1950 68 From: Tip Liz MD PCP: Joss Heredia MD Status: REG RCR Y Location: (1) Swelling of right lower extremity Status: Chronic Current Visit: Yes Code(s): M79.89 - Other specified soft tissue disorders (2) Edema leg Status: Chronic Current Visit: Yes Code(s): R60.0 - Localized edema (3) Ulcer of great toe Status: Chronic Current Visit: Yes Qualifiers: Laterality: right Non-pressure ulcer stage: with fat layer exposed Qualified Code(s): L97.512 - Non-pressure chronic ulcer of other part of right foot with fat layer exposed Code(s): L97.509 - Non-pressure chronic ulcer of other part of unspecified foot with unspecified severity (4) Parkinsons disease Status: Chronic Current Visit: No Code(s): G20 - Parkinson's disease (5) Venous hypertension, chronic, with inflammation Status: Chronic Current Visit: No Qualifiers: Laterality: bilateral Code(s): I87.329 - Chronic venous hypertension (idiopathic) with inflammation of unspecified lower extremity (6) Varicose veins with inflammation Status: Chronic Current Visit: No Code(s): I83.10 - Varicose veins of unspecified lower extremity with inflammation (7) Venous hypertension, chronic, with ulcer and inflammation Status: Chronic Current Visit: No Qualifiers: Laterality: bilateral Qualified Code(s): I87.333 - Chronic venous hypertension (idiopathic) with ulcer and inflammation of bilateral lower extremity; L97.919 - Non-pressure chronic ulcer of unspecified part of right lower leg with unspecified severity; L97.929 - Non-pressure chronic ulcer of unspecified part of left lower leg with unspecified severity Code(s): I87.339 - Chronic venous hypertension (idiopathic) with ulcer and inflammation of unspecified lower extremity (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 Current Visit: No Code(s): I87.091 - Postthrombotic syndrome with other complications of right lower extremity (9) Varicose veins with ulcer and inflammation Status: Chronic Current Visit: No Code(s): I83.209 - Varicose veins of unspecified lower extremity with both ulcer of unspecified site and inflammation; L97.909 - Non-pressure chronic ulcer of unspecified part of unspecified lower leg with unspecified severity (10) Chronic venous insufficiency Status: Chronic Current Visit: No (11) Venous ulcer of ankle Status: Resolved Current Visit: No Qualifiers: Code(s): I83.003 - Varicose veins of unspecified lower extremity with ulcer of ankle (12) Venous ulcer of right lower extremity with varicose veins Status: Resolved Current Visit: No Code(s): I83.019 - Varicose veins of right lower extremity with ulcer of unspecified site (13) History of ulcer of lower extremity Status: Chronic Current Visit: No Code(s): Z87.2 - Personal history of diseases of the skin and subcutaneous tissue (14) Postphlebitic syndrome with inflammation Status: Chronic Current Visit: No Code(s): I87.029 - Postthrombotic syndrome with inflammation of unspecified lower extremity (15) Ulcer, pressure Status: Resolved Current Visit: Yes Qualifiers: Pressure injury location: toe Pressure injury stage: stage 2 Laterality: right Qualified Code(s): L89.892 - Pressure ulcer of other site, stage 2 Code(s): L89.90 - Pressure ulcer of unspecified site, unspecified stage History of Present Illness Date of Service: 04/28/18 Chief Complaint: Ulceration of the right great toe History of Wound: This is a 68-year-old male who presented with a one-month history of ulceration on the dorsum of his right great toe. The patient was not sure as to the etiology. He is suspicious, however, that this may be related to pressure from an-ill fitting shoe. The patient has a long-standing history of chronic venous disease. The patient suffers from chronic venous insufficiency, varicose veins with inflammation and ulceration, venous hypertension with inflammation, postphlebitic syndrome with inflammation, etc. He has been treated for a venous ulceration on the right lateral malleolus, which has healed. He has suffered from venous disease for many years. In April 2013 he underwent endovenous laser ablation of the right great saphenous vein, the right small saphenous vein, and the right accessory saphenous vein. A subsequent venous duplex examination two months later revealed successful ablation of the right great saphenous vein, small saphenous vein, and accessory saphenous vein. The patient subsequently presented with ulcerations which occurred on the right medial malleolus and on the dorsum of the right second toe. The ulceration near the right medial malleolus appeared to be related to the patient's chronic venous disease. The ulceration on the right second toe appeared to be related to pressure from poorly-fitted work boots. The ulceration on the right second toe appeared pressure related, stage II, and likely due to swelling of the foot while wearing work boots. The patient's wound subsequently healed, the patient was discharged for as needed follow-up. Patient has been wearing graduated compression stockings of 20-30 mmHg on a daily basis. 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 The patient had also been instructed to avoid idle standing and sitting. However, it is known that the patient is relatively noncompliant with recommended treatment measures. 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 A noninvasive lower extremity arterial study performed in 2012 was normal. More recently, and noninvasive lower extremity arterial study on April 07, 2018, was also normal. 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 Allergies/Adverse Reactions: Allergies No Known Allergies Allergy (Verified 08/28/17 10:21) Home Medications: Ambulatory Orders Medication Instructions Recorded Carbidopa/Levodopa 50/200 [Sinemet 1 tablet PO BIDAC 08/28/17 CR] Warfarin Sodium [Coumadin] 9 mg PO DAILY 08/28/17 - Family History Maternal No pertinent history, - - Patient's father at the age of 92 of old age. Patient's mother at the age of 76 with a history of myocardial infarction. Smoking Status: Never smoker Tobacco Use: Non-smoker Review of Systems Constitutional: Denies: Chills, Fever, Weight Change Eyes: Denies: Pain, Vision Change HEENT: Denies: Difficulty Hearing, Difficulty Swallowing, Sinus Congestion Cardiovascular: Denies: Chest Pain, Palpitations Respiratory: Denies: Cough, Shortness of Breath Gastrointestinal: Denies: Diarrhea, Nausea, Vomiting Genitourinary: Denies: Dysuria, Hematuria Endocrine: Denies: Heat/ Cold Intolerance, Polydipsia, Polyuria Hematologic/ Lymphatic: Denies: Easy Bruising, Easy Bleeding - Physical Exam Vital Signs Temp Pulse Resp BP 97.5 F L 61 18 117/73 04/28/18 10:38 04/28/18 10:38 04/28/18 10:38 04/28/18 10:38 General: Alert, Oriented x3, Cooperative, No apparent distress, Well developed, Well nourished HEENT: Atraumatic, PERRLA, EOMI, Normocephalic Oral: Moist Mucosa Neck: No JVD Lungs: Normal air movement Abdomen: Non-Distended Extremities: No clubbing, No cyanosis, No Calf Tenderness, - - Mild swelling and edema persist in the right lower extremity. The ulceration on the dorsum of the right great toe is now nearly healed. The ulceration on the dorsum of the right second toe persists, but is smaller in size. The base of the ulcerations are generally pink and healthy in appearance. The erythema which was once noted several weeks ago is now resolved. There is no obvious sign of infection or cellulitis. Ulcer dimensions are documented elsewhere. There is a small amount of bioburden. Skin: No rashes Wound Measurements and Assessment CHITO - Nurse 1 - General Ulcer Measurement Start: 04/28/18 10:37 Freq: Status: Active Protocol: Activity Type Activity Date Activity User E-Sign Co-Sign Detail Recorded Client Recorded Date Recorded By Document 04/28/18 10:38 NITESH [id number] 04/28/18 10:48 NITESH Wound Center Nurse 1 [Ulcer Assessment] 13-right 2nd toe cluster -Current Size (cm) - Length 2.2 -Current Size (cm) - Width 1.4 -Current Size (cm) - Depth 0.2 CHITO - Nurse 2 - General Ulcer CM Notes Start: 04/28/18 10:37 Freq: Status: Active Protocol: Activity Type Activity Date Activity User E-Sign Co-Sign Detail Recorded Client Recorded Date Recorded By Document 04/28/18 11:36 SANJUANITA [id number] 04/28/18 11:46 SANJUANITA Wound Center Nurse 2 [Procedure/Treatment] Neurological: Cranial nerves II-XII grossly intact, Neuro grossly intact Psych/Mental Status: Normal Affect, Appropriate, Alert and oriented to time, place, person, mood and affect Debridement Note Post-Debridement Measurements/Treatment WC - Nurse 2 - General Ulcer CM Notes Start: 04/28/18 10:37 Freq: Status: Active Protocol: Activity Type Activity Date Activity User E-Sign Co-Sign Detail Recorded Client Recorded Date Recorded By Document 04/28/18 11:36 SANJUANITA [id number] 04/28/18 11:46 SANJUANITA Wound Center Nurse 2 13-right 2nd toe cluster -Time 11:39 -Correct Patient Yes -Correct Side, Site, Position Yes Laterality: Right - Great and second toe, dorsum Type of Debridement: Excisional debridement Anesthesia Used: 4% Lidocaine Solution Depth: Down to and including healthy tissue, in the subcutaneous layer Percentage of wound debrided: 100 Instrument Used: 3mm curette Severity: Fat Layer Exposed Amount of bleeding with debridement: Mild Bleeding Controlled with: Compression and gauze Patient tolerated procedure well Assessment/Plan Active Problems Swelling of right lower extremity (Chronic) Edema leg (Chronic) Ulcer of great toe (Chronic) Assessment: This is a 68-year-old male with a long-standing history of chronic venous disease, as described above. He recently presented with an ulceration on the dorsum of the right great toe. This has extended to involve the adjacent right second toe dorsum. This appears to be pressure related, and likely due to ill fitted footwear. It is suspected that the patient's shoes may be properly fitted, but with swelling which occurs at the end of each day, the shoes may become too tight, causing pressure phenomenon resulting in an ulceration. He claims to have been wearing his graduated compression stockings on a daily basis. He makes an effort to elevate his lower extremities frequently. He sleeps on a flat surface at night. 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 However, given the patient's history, and his recent presentation, it appears as though there is a level of noncompliance which is contributing to the patient's presenting manifestations. He continues to wear his work boots, despite admonitions to do otherwise. Although it does appear as though the patient has recently obtained alternative footwear of a larger size, complying with recommendations for offloading of the critical areas on the dorsum of the toes of the right foot. The swelling, edema, erythema noted in the distal right lower extremity and foot several weeks ago has now resolved. Patient has completed his prescription for doxycycline. Plan: Debridement done as documented above. Procedure was well-tolerated. We will continue the use of Elma, which will be applied either daily or every other day. Patient is to continue elevating his lower extremities as much as possible. He is to avoid idle sitting and standing. Activity has been encouraged. He has been advised to continue wearing graduated compression stockings as previously prescribed. Appropriate footwear has also been recommended, to avoid pressure phenomenon. Patient will return in 1 week for reevaluation. The patient is not a smoker. Influenza vaccine was not administered today. The patient weighs 170 pounds. He stands 6 feet 0 inches tall. His BMI is 23.1, which is normal. 04/28/18 1156 <Electronically signed by Tip Liz MD> Date Tip Liz MD CC: Signed WOUND CTR HISTORY Observed: 04/21/2018 Status: F Source: [facility] 11:04 AM [facility] REPOSITORY [facility] [address] [place] [id number] Wound Ctr History AND Physical 04/21/18 1054 MR#: [id number] Acct: [id number] Name: GERARDO FANG Rep #: [id number] : 1950 68 From: Tip Liz MD PCP: Joss Heredia MD Status: REG RCR Y Location: WC (1) Swelling of right lower extremity Status: Chronic Current Visit: Yes Code(s): M79.89 - Other specified soft tissue disorders (2) Edema leg Status: Chronic Current Visit: Yes Code(s): R60.0 - Localized edema (3) Ulcer of great toe Status: Acute Current Visit: Yes Qualifiers: Laterality: right Non-pressure ulcer stage: with fat layer exposed Qualified Code(s): L97.512 - Non-pressure chronic ulcer of other part of right foot with fat layer exposed Code(s): L97.509 - Non-pressure chronic ulcer of other part of unspecified foot with unspecified severity (4) Parkinsons disease Status: Chronic Current Visit: No Code(s): G20 - Parkinson's disease (5) Venous hypertension, chronic, with inflammation Status: Chronic Current Visit: Yes Qualifiers: Laterality: bilateral Qualified Code(s): I87.323 - Chronic venous hypertension (idiopathic) with inflammation of bilateral lower extremity Code(s): I87.329 - Chronic venous hypertension (idiopathic) with inflammation of unspecified lower extremity (6) Varicose veins with inflammation Status: Chronic Current Visit: Yes Code(s): I83.10 - Varicose veins of unspecified lower extremity with inflammation (7) Chronic venous insufficiency Status: Chronic Current Visit: Yes (8) History of ulcer of lower extremity Status: Chronic Current Visit: No Code(s): Z87.2 - Personal history of diseases of the skin and subcutaneous tissue (9) Postphlebitic syndrome with inflammation Status: Chronic Current Visit: Yes Code(s): I87.029 - Postthrombotic syndrome with inflammation of unspecified lower extremity History of Present Illness Date of Service: 04/21/18 Chief Complaint: Ulceration of the right great toe History of Wound: This is a 68-year-old male who presented with a one-month history of ulceration on the dorsum of his right great toe. The patient was not sure as to the etiology. He is suspicious, however, that this may be related to pressure from an-ill fitting shoe. The patient has a long-standing history of chronic venous disease. The patient suffers from chronic venous insufficiency, varicose veins with inflammation and ulceration, venous hypertension with inflammation, postphlebitic syndrome with inflammation, etc. He has been treated for a venous ulceration on the right lateral malleolus, which has healed. He has suffered from venous disease for many years. In April 2013 he underwent endovenous laser ablation of the right great saphenous vein, the right small saphenous vein, and the right accessory saphenous vein. A subsequent venous duplex examination two months later revealed successful ablation of the right great saphenous vein, small saphenous vein, and accessory saphenous vein. The patient subsequently presented with ulcerations which occurred on the right medial malleolus and on the dorsum of the right second toe. The ulceration near the right medial malleolus appeared to be related to the patient's chronic venous disease. The ulceration on the right second toe appeared to be related to pressure from poorly-fitted work boots. The ulceration on the right second toe appeared pressure related, stage II, and likely due to swelling of the foot while wearing work boots. The patient's wound subsequently healed, the patient was discharged for as needed follow-up. Patient has been wearing graduated compression stockings of 20-30 mmHg on a daily basis. 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 The patient had also been instructed to avoid idle standing and sitting. However, it is known that the patient is relatively noncompliant with recommended treatment measures. 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 A noninvasive lower extremity arterial study performed in 2012 was normal. 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 Allergies/Adverse Reactions: Allergies No Known Allergies Allergy (Verified 08/28/17 10:21) Home Medications: Ambulatory Orders Medication Instructions Recorded Carbidopa/Levodopa 50/200 [Sinemet 1 tablet PO BIDAC 08/28/17 CR] Warfarin Sodium [Coumadin] 9 mg PO DAILY 08/28/17 - Family History Maternal No pertinent history, - - Patient's father at the age of 92 of old age. Patient's mother at the age of 76 with a history of myocardial infarction. Lives: Spouse/ Significant Other Smoking Status: Never smoker Tobacco Use: Non-smoker Alcohol: None Drugs: None Review of Systems Constitutional: Denies: Chills, Fever, Weight Change Eyes: Denies: Pain, Vision Change HEENT: Denies: Difficulty Hearing, Difficulty Swallowing, Sinus Congestion Cardiovascular: Denies: Chest Pain, Palpitations Respiratory: Denies: Cough, Shortness of Breath Gastrointestinal: Denies: Diarrhea, Nausea, Vomiting Genitourinary: Denies: Dysuria, Hematuria Endocrine: Denies: Heat/ Cold Intolerance, Polydipsia, Polyuria Hematologic/ Lymphatic: Denies: Easy Bruising, Easy Bleeding - Physical Exam Vital Signs Temp Pulse Resp BP 97.8 F 57 L 16 121/52 H 04/21/18 10:00 04/21/18 10:00 04/21/18 10:00 04/21/18 10:00 General: Alert, Oriented x3, Cooperative, No apparent distress, Well developed, Well nourished HEENT: Atraumatic, PERRLA, EOMI, Normocephalic Oral: Moist Mucosa Neck: No JVD Lungs: Normal air movement Abdomen: Non-Distended Extremities: No clubbing, No cyanosis, No edema, No Calf Tenderness, - - There is no significant swelling or edema in the right lower extremity. Chronic areas of hyperpigmentation are noted in the right gaiter area. The ulceration on the dorsum of the right great toe is nearly healed. The ulceration on the dorsum of the right second toe is pink and healthy in appearance, with active granulation tissue. Dimensions are documented elsewhere. The base of the ulcerations are pink and healthy in appearance. There is only minimal bioburden. There is no sign of infection or cellulitis. Skin: No rashes Wound Measurements and Assessment WC - Nurse 1 - General Ulcer Measurement Start: 03/24/18 12:14 Freq: Status: Active Protocol: Activity Type Activity Date Activity User E-Sign Co-Sign Detail Recorded Client Recorded Date Recorded By Document 04/21/18 10:00 NITESH [id number] 04/21/18 10:10 NITESH Wound Center Nurse 1 Neurological: Cranial nerves II-XII grossly intact, Neuro grossly intact Psych/Mental Status: Normal Affect, Appropriate, Alert and oriented to time, place, person, mood and affect Debridement Note Post-Debridement Measurements/Treatment WC - Nurse 2 - General Ulcer CM Notes Start: 03/24/18 12:14 Freq: Status: Active Protocol: Activity Type Activity Date Activity User E-Sign Co-Sign Detail Recorded Client Recorded Date Recorded By Wound Center Nurse 2 12- right hallux crease Laterality: Right - Great toe Type of Debridement: Excisional debridement Anesthesia Used: 4% Lidocaine Solution Depth: Down to and including healthy tissue, in the subcutaneous layer Percentage of wound debrided: 100 Instrument Used: 5mm curette Severity: Fat Layer Exposed Amount of bleeding with debridement: Mild Bleeding Controlled with: Compression and gauze Patient tolerated procedure well - Additional Wound Laterality: Right - Second toe Type of Debridement: Excisional debridement Anesthesia Used: 4% Lidocaine Solution Depth: Down to and including healthy tissue, in the subcutaneous layer Percentage of wound debrided: 100 Instrument Used: 5mm curette Severity: Fat Layer Exposed Amount of bleeding with debridement: Mild Bleeding Controlled with: Compression and gauze Patient tolerated procedure: Patient tolerated procedure well Assessment/Plan Active Problems Swelling of right lower extremity (Chronic) Edema leg (Chronic) Ulcer of great toe (Acute) Venous hypertension, chronic, 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 He recently presented with an ulceration on the dorsum of the right great toe. This is now extended to the adjacent right second toe dorsum. This appears to be pressure related, and likely due to ill fitted footwear. It is suspected that the patient's shoes may be properly fitted, but with swelling which occurs at the end of each day, the shoes may become too tight, causing pressure phenomenon resulting in an ulceration. He claims to have been wearing his graduated compression stockings on a daily basis. He makes an effort to elevate his lower extremities frequently. He sleeps on a flat surface at night. 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 However, given the patient's history, and his presentation today, it appears as though there is a level of noncompliance which is contributing to the patient's presenting manifestations. He continues to wear his work boots, despite admonitions to do otherwise. Although it does appear as though the patient has recently obtained alternative footwear of a larger size, complying with recommendations for offloading of the critical areas on the dorsum of the toes of the right foot. The swelling, edema, erythema noted in the distal right lower extremity and foot several weeks ago has now resolved. Patient has completed his prescription for doxycycline. Plan: Debridement done as documented above. Procedure was well-tolerated. The patient has shown response to the use of Promogran. We will switch to the use of Elma, which will be applied either daily or every other day. Patient is to continue elevating his lower extremities as much as possible. He is to avoid idle sitting and standing. Activity has been encouraged. He has been advised to continue wearing graduated compression stockings as previously prescribed. Patient will return in 1 week for reevaluation. The patient is not a smoker. Influenza vaccine was not administered today. The patient weighs 170 pounds. He stands 6 feet 0 inches tall. His BMI is 23.1, which is normal. 04/21/18 1104 <Electronically signed by Tip Liz MD> Date Tip Liz MD CC: Signed LOWER EXT ARTERIAL Observed: 04/07/2018 Status: F Source: [facility] 5:37 PM [facility] REPOSITORY [facility] Cardiovascular Services [address] [place] [id number] 04/07/18 1713 MR#: [id number] Acct: [id number] Name: GERARDO FANG Rep #: [id number] : 1950 68 From: Tip Liz MD Attending Dr: Tip Liz MD Status: REG RCR Ordering Dr: Date: 04/07/18 Location: Sex: M C Admitted: Arterial Study - Arterial Study Arterial Study: This is a 68-year-old male with right lower extremity wounds and cellulitis. Suspecting the presence of atherosclerotic peripheral arterial occlusive disease, the patient was brought to the noninvasive vascular laboratory at this time for the purpose of bilateral noninvasive lower extremity arterial assessment. Doppler signal assessment was used to evaluate the pulses at ankle level bilaterally. Posterior tibial and dorsalis pedis pulses were triphasic bilaterally. Segmental limb pressures were obtained bilaterally. The right ankle pressure, as determined by posterior tibial pulse, was measured at 177 mmHg. The right ankle pressure, as determined by dorsalis pedis pulse, was measured at 161 mmHg. The right digital pressure was measured at 102 mmHg. The left ankle pressure, as determined by posterior tibial and dorsalis pedis pulses, could not be determined due to the noncompressibility of the vasculature. The left digital pressure was measured at 106 mmHg. Pulse-volume recordings were obtained bilaterally and segmentally. Waveform amplitudes appeared to be satisfactory at all levels bilaterally, including low thigh, calf, ankle, and digital levels bilaterally. Resting ankle-brachial indices were calculated. The resting right ankle-brachial index was calculated to be 1.51. The resting left ankle-brachial index could not be determined due to the noncompressibility of the vasculature. Digital-brachial indices were calculated bilaterally. The right digital-brachial index was calculated to be 0.87. The left digital-brachial index was calculated to be 0.91. Impression: Based on findings of this resting noninvasive lower extremity arterial study, there is no evidence of significant atherosclerotic peripheral arterial occlusive disease in the lower extremities bilaterally. Triphasic waveforms were noted at ankle level bilaterally. The resting right ankle-brachial index is supra-normal, likely due to arterial calcification. Ankle pressures and ankle-brachial indices in the left lower extremity could not be determined due to the noncompressibility of the vasculature, also likely due to arterial calcification rendering the arterial tree noncompressible. Digital-brachial indices are bilaterally normal. Findings of this study suggest relatively normal arterial perfusion, though with evidence of arterial calcification in the arterial tree bilaterally. 04/07/18 1737 <Electronically signed by Tip Liz MD> Date Tip Liz MD CC: Tip Liz MD; Joss Heredia MD Date Dictated: 04/07/181712 Date Transcribed: 04/07/181712 Account Information Clerk: TONE Hewitt VENOUS DUPLEX LOWER Observed: 04/07/2018 Status: F Source: [facility] 4:53 PM [facility] REPOSITORY [facility] Cardiovascular Services [address] [place] [address] Venous Duplex US, Unilateral 04/07/18 1105 MR#: [id number] Acct: [id number] Name: GERARDO FANG Rep #: [id number] : 1950 68 From: Tip Liz MD Attending Dr: Tip Liz MD Status: REG RCR Ordering Dr: Tip Liz MD Date: 04/07/18 Location: Sex: M C Admitted: Reason For Study: leg swelling and edema RIGHT CFV is compressible, spontaneous, phasic, competent and demonstrates normal augmentation. FV, POP V and T/P trunk are partially compressible with bright intraluminal echoes. FV is competent upon augmentation. POP V is incompetent upon augmentation. GSV is absent. PTV is compressible. RT PerV is compressible. Procedure Exam performed in department. The exam was diagnostic. A preliminary report was called and/or faxed to Dr. Liz. Interpretation Summary Chronic venous changes are noted in the right femoral vein, popliteal vein, and tibio-peroneal trunk, which are partially compressible and demonstrate bright intraluminal echogenicity. The remainder of the right lower extremity deep venous system is patent and compressible. The right popliteal vein is incompetent. The right common femoral vein and femoral vein are competent. The right great saphenous vein is absent. Ordering Physician: Tip Liz Performed By: Victor M Mccullough, RVT 04/07/181651 Date Tip Liz MD CC: Tip Liz MD; Joss Heredia MD Date Dictated: 04/07/18 1105 Date Transcribed: 04/07/181651 Account Information Clerk: Signed WOUND CTR HISTORY Observed: 04/07/2018 Status: F Source: [facility] 10:49 AM [facility] REPOSITORY [facility] W[facility] [address] [place] [address] Wound Ctr History AND Physical 04/07/18 1036 MR#: [id number] Acct: [id number] Name: GERARDO FANG Rep #: [id number] : 1950 68 From: Tip Liz MD PCP: Joss Heredia MD Status: REG RCR Y Location: WC (1) Swelling of right lower extremity Status: Chronic Current Visit: Yes Code(s): M79.89 - Other specified soft tissue disorders (2) Edema leg Status: Chronic Current Visit: Yes Code(s): R60.0 - Localized edema (3) Ulcer of great toe Status: Acute Current Visit: Yes Qualifiers: Laterality: right Non-pressure ulcer stage: with fat layer exposed Qualified Code(s): L97.512 - Non-pressure chronic ulcer of other part of right foot with fat layer exposed Code(s): L97.509 - Non-pressure chronic ulcer of other part of unspecified foot with unspecified severity (4) Parkinsons disease Status: Chronic Current Visit: No Code(s): G20 - Parkinson's disease (5) Venous hypertension, chronic, with inflammation Status: Chronic Current Visit: Yes Qualifiers: Laterality: bilateral Qualified Code(s): I87.323 - Chronic venous hypertension (idiopathic) with inflammation of bilateral lower extremity Code(s): I87.329 - Chronic venous hypertension (idiopathic) with inflammation of unspecified lower extremity (6) Varicose veins with inflammation Status: Chronic Current Visit: Yes Code(s): I83.10 - Varicose veins of unspecified lower extremity with inflammation (7) Chronic venous insufficiency Status: Chronic Current Visit: Yes (8) History of ulcer of lower extremity Status: Chronic Current Visit: No Code(s): Z87.2 - Personal history of diseases of the skin and subcutaneous tissue (9) Postphlebitic syndrome with inflammation Status: Chronic Current Visit: Yes Code(s): I87.029 - Postthrombotic syndrome with inflammation of unspecified lower extremity History of Present Illness Date of Service: 04/07/18 Chief Complaint: Ulceration of the right great toe History of Wound: This is a 68-year-old male who presents with a one-month history of ulceration on the dorsum of his right great toe. The patient is not sure as to the etiology. He is suspicious, however, that this may be related to pressure from an-ill fitting shoe. The patient has a long-standing history of chronic venous disease. The patient suffers from chronic venous insufficiency, varicose veins with inflammation and ulceration, venous hypertension with inflammation, postphlebitic syndrome with inflammation, etc. He has been treated for a venous ulceration on the right lateral malleolus, which has healed. He has suffered from venous disease for many years. In April 2013 he underwent endovenous laser ablation of the right great saphenous vein, the right small saphenous vein, and the right accessory saphenous vein. A subsequent venous duplex examination two months later revealed successful ablation of the right great saphenous vein, small saphenous vein, and accessory saphenous vein. The patient subsequently presented with ulcerations which occurred on the right medial malleolus and on the dorsum of the right second toe. The ulceration near the right medial malleolus appeared to be related to the patient's chronic venous disease. The ulceration on the right second toe appeared to be related to pressure from poorly-fitted work boots. The ulceration on the right second toe appeared pressure related, stage II, and likely due to swelling of the foot while wearing work boots. The patient's wound subsequently healed, the patient was discharged for as needed follow-up. Patient has been wearing graduated compression stockings of 20-30 mmHg on a daily basis. 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 The patient had also been instructed to avoid idle standing and sitting. However, it is known that the patient is relatively noncompliant with recommended treatment measures. 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 A noninvasive lower extremity arterial study performed in 2012 was normal. 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 Allergies/Adverse Reactions: Allergies No Known Allergies Allergy (Verified 08/28/17 10:21) Home Medications: Ambulatory Orders Medication Instructions Recorded Carbidopa/Levodopa 50/200 [Sinemet 1 tablet PO BIDAC 08/28/17 CR] Warfarin Sodium [Coumadin] 9 mg PO DAILY 08/28/17 - Family History Maternal No pertinent history, - - Patient's father at the age of 92 of old age. Patient's mother at the age of 76 with a history of myocardial infarction. Lives: Spouse/ Significant Other Smoking Status: Never smoker Tobacco Use: Non-smoker Alcohol: None Drugs: None Review of Systems Constitutional: Denies: Chills, Fever, Weight Change Eyes: Denies: Pain, Vision Change HEENT: Denies: Difficulty Hearing, Difficulty Swallowing, Sinus Congestion Cardiovascular: Denies: Chest Pain, Palpitations Respiratory: Denies: Cough, Shortness of Breath Gastrointestinal: Denies: Diarrhea, Nausea, Vomiting Genitourinary: Denies: Dysuria, Hematuria Endocrine: Denies: Heat/ Cold Intolerance, Polydipsia, Polyuria Hematologic/ Lymphatic: Denies: Easy Bruising, Easy Bleeding - Physical Exam Vital Signs Temp Pulse Resp BP 97.3 F L 72 18 136/86 H 04/07/18 10:05 04/07/18 10:05 04/07/18 10:05 04/07/18 10:05 General: Alert, Oriented x3, Cooperative, No apparent distress, Well developed, Well nourished HEENT: Atraumatic, PERRLA, EOMI, Normocephalic Oral: Moist Mucosa Neck: No JVD Lungs: Normal air movement Abdomen: Non-Distended Extremities: No clubbing, No cyanosis, No Calf Tenderness, - - Significant increased swelling and edema are noted in the right lower extremity and foot. There is also noted to be mild erythema involving the distal right foot and toes. The patient was noted to have an ulceration on the dorsum of the right great toe and on the right second toe. This appears to be somewhat increased from that noted 1 week ago. Dimensions are documented elsewhere. The presence of erythema is suggestive of a cellulitic process. Wound Measurements and Assessment WC - Nurse 1 - General Ulcer Measurement Start: 03/24/18 12:14 Freq: Status: Active Protocol: Activity Type Activity Date Activity User E-Sign Co-Sign Detail Recorded Client Recorded Date Recorded By Document 04/07/18 10:05 DL [id number] 04/07/18 10:15 DL Wound Center Nurse 1 [Ulcer Assessment] 12- right hallux crease -Current Size (cm) - Length 0.6 -Current Size (cm) - Width 0.3 WC - Nurse 2 - General Ulcer CM Notes Start: 03/24/18 12:14 Freq: Status: Active Protocol: Activity Type Activity Date Activity User E-Sign Co-Sign Detail Recorded Client Recorded Date Recorded By Document 04/07/18 10:20 JS [id number] 04/07/18 10:36 JS Wound Center Nurse 2 [Procedure/Treatment] 12- right hallux crease -Time 10:20 -Correct Patient Yes -Correct Side, Site, Position Yes Neurological: Cranial nerves II-XII grossly intact, Neuro grossly intact Psych/Mental Status: Normal Affect, Appropriate, Alert and oriented to time, place, person, mood and affect Debridement Note Post-Debridement Measurements/Treatment WC - Nurse 2 - General Ulcer CM Notes Start: 03/24/18 12:14 Freq: Status: Active Protocol: Activity Type Activity Date Activity User E-Sign Co-Sign Detail Wound Center Nurse 2 12- right hallux crease -Time 13:16 10:20 -Correct Patient Yes Yes -Correct Side, Site, Position Yes Yes Laterality: Right - Great toe and second toe, dorsal Type of Debridement: Excisional debridement Anesthesia Used: 4% Lidocaine Solution Depth: Down to and including healthy tissue, in the subcutaneous layer Percentage of wound debrided: 100 Instrument Used: 3mm curette Severity: Fat Layer Exposed Amount of bleeding with debridement: Mild Bleeding Controlled with: Compression and gauze Patient tolerated procedure well Assessment/Plan Active Problems Swelling of right lower extremity (Chronic) Edema leg (Chronic) Ulcer of great toe (Acute) Venous hypertension, chronic, 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 He recently presented with an ulceration on the dorsum of the right great toe. This is now extended to the adjacent right second toe dorsum. This appears to be pressure related, and likely due to ill fitted footwear. It is suspected that the patient's shoes may be properly fitted, but with swelling which occurs at the end of each day, the shoes may become too tight, causing pressure phenomenon resulting in an ulceration. He claims to have been wearing his graduated compression stockings on a daily basis. He makes an effort to elevate his lower extremities frequently. He sleeps on a flat surface at night. 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 However, given the patient's history, and his presentation today, it appears as though there is a level of noncompliance which is contributing to the patient's presenting manifestations. He continues to wear his work boots, despite admonitions to do otherwise. There has been deterioration in his condition since his visit a week ago, with increasing swelling in the right lower extremity, and the development of erythema of the distal foot and toes. It appears unlikely that he has been elevating his lower extremities as much as recommended, and has not implemented offloading measures and switched to appropriately fitted footwear. Based upon his current examination, the development of cellulitis is suspected. Plan: We are to initiate oral antibiotic, and a prescription has been provided for doxycycline 100 mg p.o. to be taken twice daily for 10 days. Ulcerations on the dorsum of his right great and second toe have been cultured for both aerobic and anaerobic bacteria. Culture results will be awaited, and the antibiotic regimen will be adjusted accordingly. The patient is to continue measures which have been previously implemented related to his venous disease. These include leg elevation, avoidance of idle standing and sitting, active lifestyle, the use of graduated compression stockings, weight control measures, etc. Offloading measures have been recommended relative to the current ulceration on the dorsum of the right great and second toe. The patient has been advised to obtain shoes of a larger size. A surgical boot has been provided. We are to obtain a noninvasive lower extremity arterial study to assess the arterial status in the right lower extremity, though a prior study from 5 years ago was normal. A venous duplex examination will also be obtained, to assure that right lower extremity venous thrombosis is not accounting for the enhanced swelling in the right lower extremity. We are to continue the use of collagenase Santyl topically on the ulcerations of the right great and second toes. Collagenase Santyl will be applied topically on a daily basis. Enhance compliance with recommended measures has been discussed. The patient has been advised to seek medical attention should the erythema and swelling in the right lower extremity worsen. The patient will return in 1 week for reassessment. As mentioned, it is suspected that the patient's right great and second toe ulcer is likely due to swelling in the patient's foot which had occurred during daytime hours, while the patient was wearing a work boot. This resulted in a pressure phenomenon, creating ulcerations. The patient has been urged to obtain more appropriately fitted footwear, but his compliance with recommended measures is suspect. The patient is to elevate his lower extremities as much as possible. He is to avoid prolonged, idle sitting. He is to continue compression with graduated compression stockings of 20-30 mmHg, worn daily. The patient is not a smoker. Influenza vaccine was not administered. Patient weighs about 170 pounds. He stands 6 feet 0 inches tall. His BMI is 23.1, which is normal. 04/07/18 1049 <Electronically signed by Tip Liz MD> Date Tip Liz MD CC: Signed Observed: 04/07/2018 Status: F Source: [place] CULTURE, DEEP WOUND 10:30 AM [facility] REPOSITORY Comments: RIGHT GREAT TOE AND 2ND TOE Gram Stain Gram Stain Rare Gram positive cocci Wound Culture #3 There are no CLSI standards for interpretation of this Drug/Organism combination. Possible skin contamination. ORGANISM 1: Staphylococcus aureus Amount Growth 1+ ORGANISM 2: Streptococcus agalactiae (B) Amount Growth 1+ ORGANISM 3: Propionibacterium propionicum Amount Growth 1+ Staphylococcus aureus: REACTION Benzylpenicillin NF >=0.5 R Cefoxitin *NF - Clindamycin $$ <=0.25 S Inducable Clindamycin Resistan - Erythromycin $ <=0.25 S Gentamicin $ <=0.5 S Levofloxacin $ 0.25 S Linezolid $$$$ 2 S Moxifloxicin *NF <=0.25 S Oxacillin NF 1 S Tigecycline $$$$ <=0.12 S Rifampin $$ <=0.5 S Tetracycline NF <=1 S Trimethoprim/Sulfametho $ <=10 S Vancomycin $ 1 S (NF) indicates non-formulary drug at [facility]. Approval by Infectious Disease Specialist required before non-formulary drugs may be ordered and/or dispensed. * CLSI guidelines does not recommend testing of cephalosporins. This interpretation is deduced from Beta-lactam/penicillin results. Streptococcus agalactiae (B): REACTION Ampicillin $ <=0.25 S Benzylpenicillin NF 0.12 S Ceftriaxone $ <=0.12 S Clindamycin $$ >=1 R Inducable Clindamycin Resistan - Linezolid $$$$ <=2 S Vancomycin $ 0.5 S (NF) indicates non-formulary drug at [facility]. Approval by Infectious Disease Specialist required before non-formulary drugs may be ordered and/or dispensed. * CLSI guidelines does not recommend testing of cephalosporins. This interpretation is deduced from Beta-lactam/penicillin results. Cult, Anaerobic No anaerobic bacteria isolated. Performed By: #### M100.1500 #### [facility] [address] [place] [address]. [place], [address] WOUND CTR HISTORY Observed: 03/24/2018 Status: F Source: [place] AND PHYSICAL 1:43 PM [facility] REPOSITORY [facility] [address] [place] [id number] Wound Ctr History AND Physical 03/24/18 1326 MR#: [id number] Acct: [id number] Name: GERARDO FANG Rep #: [id number] : 1950 68 From: Tip Liz MD PCP: Joss Heredia MD Status: REG RCR Y Location: WC (1) Swelling of right lower extremity Status: Chronic Current Visit: Yes Code(s): M79.89 - Other specified soft tissue disorders (2) Edema leg Status: Chronic Current Visit: Yes Code(s): R60.0 - Localized edema (3) Ulcer of great toe Status: Acute Current Visit: Yes Qualifiers: Laterality: right Non-pressure ulcer stage: with fat layer exposed Qualified Code(s): L97.512 - Non-pressure chronic ulcer of other part of right foot with fat layer exposed Code(s): L97.509 - Non-pressure chronic ulcer of other part of unspecified foot with unspecified severity (4) Parkinsons disease Status: Chronic Current Visit: No Code(s): G20 - Parkinson's disease (5) Venous hypertension, chronic, with inflammation Status: Chronic Current Visit: Yes Qualifiers: Laterality: bilateral Qualified Code(s): I87.323 - Chronic venous hypertension (idiopathic) with inflammation of bilateral lower extremity Code(s): I87.329 - Chronic venous hypertension (idiopathic) with inflammation of unspecified lower extremity (6) Varicose veins with inflammation Status: Chronic Current Visit: Yes Code(s): I83.10 - Varicose veins of unspecified lower extremity with inflammation (7) Chronic venous insufficiency Status: Chronic Current Visit: Yes (8) History of ulcer of lower extremity Status: Chronic Current Visit: No Code(s): Z87.2 - Personal history of diseases of the skin and subcutaneous tissue (9) Postphlebitic syndrome with inflammation Status: Chronic Current Visit: Yes Code(s): I87.029 - Postthrombotic syndrome with inflammation of unspecified lower extremity History of Present Illness Date of Service: 03/24/18 Chief Complaint: Ulceration of the right great toe History of Wound: This is a 68-year-old male who presents with a one-month history of ulceration on the dorsum of his right great toe. The patient is not sure as to the etiology. He is suspicious, however, that this may be related to pressure from an-ill fitting shoe. The patient has a long-standing history of chronic venous disease. The patient suffers from chronic venous insufficiency, varicose veins with inflammation and ulceration, venous hypertension with inflammation, postphlebitic syndrome with inflammation, etc. He has been treated for a venous ulceration on the right lateral malleolus, which has healed. He has suffered from venous disease for many years. In April 2013 he underwent endovenous laser ablation of the right great saphenous vein, the right small saphenous vein, and the right accessory saphenous vein. A subsequent venous duplex examination two months later revealed successful ablation of the right great saphenous vein, small saphenous vein, and accessory saphenous vein. The patient subsequently presented with ulcerations which occurred on the right medial malleolus and on the dorsum of the right second toe. The ulceration near the right medial malleolus appeared to be related to the patient's chronic venous disease. The ulceration on the right second toe appeared to be related to pressure from poorly-fitted work boots. The ulceration on the right second toe appeared pressure related, stage II, and likely due to swelling of the foot while wearing work boots. The patient's wound subsequently healed, the patient was discharged for as needed follow-up. Patient has been wearing graduated compression stockings of 20-30 mmHg on a daily basis. 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 The patient had also been instructed to avoid idle standing and sitting. However, it is known that the patient is relatively noncompliant with recommended treatment measures. 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 A noninvasive lower extremity arterial study performed in 2012 was normal. 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 Allergies/Adverse Reactions: Allergies No Known Allergies Allergy (Verified 08/28/17 10:21) Home Medications: Ambulatory Orders Medication Instructions Recorded Carbidopa/Levodopa 50/200 [Sinemet 1 tablet PO BIDAC 08/28/17 CR] Warfarin Sodium [Coumadin] 9 mg PO DAILY 08/28/17 - Family History Maternal No pertinent history, - - Patient's father at the age of 92 of old age. Patient's mother at the age of 76 with a history of myocardial infarction. Lives: Spouse/ Significant Other Smoking Status: Never smoker Tobacco Use: Non-smoker Alcohol: None Drugs: None Review of Systems Constitutional: Denies: Chills, Fever, Weight Change Eyes: Denies: Pain, Vision Change HEENT: Denies: Difficulty Hearing, Difficulty Swallowing, Sinus Congestion Cardiovascular: Denies: Chest Pain, Palpitations Respiratory: Denies: Cough, Shortness of Breath Gastrointestinal: Denies: Diarrhea, Nausea, Vomiting Genitourinary: Denies: Dysuria, Hematuria Endocrine: Denies: Heat/ Cold Intolerance, Polydipsia, Polyuria Hematologic/ Lymphatic: Denies: Easy Bruising, Easy Bleeding - Physical Exam Vital Signs Temp Pulse Resp BP 98.7 F 72 18 136/72 H 03/24/18 12:15 03/24/18 12:15 03/24/18 12:15 03/24/18 12:15 General: Alert, Oriented x3, Cooperative, No apparent distress, Well developed, Well nourished, - - The patient is of normal body habitus. HEENT: Atraumatic, PERRLA, EOMI, Normocephalic Oral: Moist Mucosa Neck: No JVD, Negative Carotid Bruits, Negative Hepatojugular Reflux, No Nodes, No Nuchal Rigidity, Trachea Midline Lungs: Clear to auscultation, Normal air movement, No rhonchi, No wheeze Cardiovascular: Regular rate, Regular Rhythm, Normal S1, Normal S2, No murmurs Abdomen: Soft, Non Tender, Non-Distended Extremities: No clubbing, No cyanosis, No Calf Tenderness, - - Scattered varicosities are noted in the lower extremities bilaterally. Mild swelling and edema is noted bilaterally. Mild hyperpigmentation and lipodermatosclerosis is noted in the gaiter areas bilaterally. The patient was noted to have ulceration on the dorsum of the right great toe. Dimensions are documented elsewhere. There is no sign of infection or cellulitis. The base of the ulceration demonstrates a moderate amount of bioburden. Skin: No rashes Wound Measurements and Assessment WC - Nurse 1 - General Ulcer Measurement Start: 03/24/18 12:14 Freq: Status: Active Protocol: Activity Type Activity Date Activity User E-Sign Co-Sign Detail Recorded Client Recorded Date Recorded By Document 03/24/18 12:15 NITESH [id number] 03/24/18 12:29 NITESH Wound Center Nurse 1 [Ulcer Assessment] 12- right hallux crease Neurological: Cranial nerves II-XII grossly intact, Neuro grossly intact Psych/Mental Status: Normal Affect, Appropriate, Alert and oriented to time, place, person, mood and affect Debridement Note Laterality: Right - Great toe, dorsum Type of Debridement: Excisional debridement Anesthesia Used: 4% Lidocaine Solution Depth: Down to and including healthy tissue, in the subcutaneous layer Percentage of wound debrided: 100 Instrument Used: 5mm curette Severity: Fat Layer Exposed Amount of bleeding with debridement: Mild Bleeding Controlled with: Compression and gauze Patient tolerated procedure well Assessment/Plan Active Problems Swelling of right lower extremity (Chronic) Edema leg (Chronic) Ulcer of great toe (Acute) Venous hypertension, chronic, 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 At his current presentation, he presents with an ulceration on the dorsum of the right great toe. This appears to be pressure related, and likely due to ill fitted footwear. It is suspected that the patient's shoes may be properly fitted, but with swelling which occurs at the end of each day, the sugars may become too tight, causing pressure phenomenon resulting in an ulceration. With respect to the patient's venous disease, the patient appears to be doing well. He has been wearing his graduated compression stockings on a daily basis. He makes an effort to elevate his lower extremities frequently. He sleeps on a flat surface at night. 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 Plan: The patient is to continue measures which have been previously implemented related to his venous disease. These include leg elevation, avoidance of idle standing and sitting, active lifestyle, the use of graduated compression stockings, weight control measures, etc. Offloading measures have been recommended relative to the current ulceration on the dorsum of the right great toe. The patient has been advised to obtain shoes of a larger size. A surgical boot has been provided. We are to obtain a noninvasive lower extremity arterial study to assess the arterial status in the right lower extremity, though a prior study from 5 years ago was normal. The patient will return in 1 week for reassessment. Mentioned, it is suspected that the patient's right great toe ulcer is likely due to swelling in the patient's foot which had occurred during daytime hours, while the patient was wearing a work boot. This resulted in a pressure phenomenon, creating an ulceration on the right great toe. The patient has been urged to obtain more appropriately fitted footwear. The patient is to elevate his lower extremities as much as possible. He is to avoid prolonged, idle sitting. He is to continue compression with graduated compression stockings of 20-30 mmHg, worn daily. The patient is not a smoker. Influenza vaccine was not administered. Patient weighs about 170 pounds. He stands 6 feet 0 inches tall. His BMI is 23.1, which is normal. 03/24/18 1343 <Electronically signed by Tip Liz MD> Date Tip Liz MD CC: Signed BRAIN W/WO CONTRAST Observed: 01/22/2018 Status: F Source: [place] 7:28 AM [facility] REPOSITORY [facility] Imaging Services [address] [place] [address] Brain W/WO Contrast MR#: [id number] Acct: [id number] Name: GERARDO FANG Rep #: [id number] : 1950 67 From: Christo Johnson MD PCP: Joss Heredia MD Status: REG CLI Study: Brain W/WO Contrast Date of Exam: 01/22/18 Exam# [id number] Ordering Dr: Gentry Ward MD STUDY: MRI BRAIN WITH AND WITHOUT CONTRAST REASON FOR EXAM: Male, 67 years old. Bilateral vision loss history of CVA TECHNIQUE: Standardized multiplanar fat and water weighted pulse sequences were obtained. 9 ml of Gadavist contrast material was administered intravenously for the contrast portion of the examination. COMPARISON: None. FINDINGS: Normal size of the ventricles and extra-axial spaces for the patient's age. Minor periventricular white matter ischemic change without evidence for acute infarct.. Tiny perivascular space within the left alan. Normal bilateral basal ganglia. Normal thalami. There is no extra-axial fluid accumulation. Normal flow voids within the major intracranial circulation suggesting patency by spin echo criteria. Normal venous enhancement. There is no enhancing intra-axial or extra-axial abnormality. Normal sella turcica, pituitary gland, infundibular stalk, optic chiasm and hypothalamus. Normal tectal plate and pineal gland. Normal midbrain, alan and medulla. Normal cerebellum. Normal basal cisterns. Normal bilateral temporal bones. Normal bilateral internal auditory canals. No demonstrated orbital abnormality, within the constraints of a routine brain study. Normal visualized paranasal sinuses. Normal calvarium and skull base. Normal visualized soft tissue structures. Normal visualized upper cervical spine. IMPRESSION: Minor periventricular white matter ischemic changes without evidence for acute infarct No other significant abnormality Electronically Signed: Christo Johnson MD at 16:21 EDT , Service support , STUDY: MRI ORBITS WITH AND WITHOUT CONTRAST REASON FOR EXAM: Male, 67 years old. Bilateral visual loss for one year TECHNIQUE: Standardized fat and water weighted pulse sequences were obtained in all 3 orthogonal planes, pre-and post contrast administration. 9 ml of Gadavist contrast material was administered intravenously for the contrast portion of the examination. COMPARISON: None. FINDINGS: Normal bilateral globes. On the T2-weighted imaging sequences there appear to be foci of increased signal intensity within the optic nerves consistent with nonspecific optic neuritis possibly due to ischemia Normal bilateral intraconal and extraconal spaces. Normal bilateral extraocular muscles. Normal optic chiasm and post-chiasmatic tracts. Normal sella turcica, pituitary gland, infundibular stalk, and hypothalamus. Normal bilateral cavernous sinuses. Normal tectal plate and pineal gland. Normal flow voids within the major intracranial circulation suggesting patency by spin echo criteria. Normal size of the ventricles and extra-axial spaces for the patient's age. Minor periventricular white matter ischemic changes. Normal bilateral basal ganglia. Normal thalami. There is no extra-axial fluid accumulation. Normal midbrain, alan and medulla. Normal cerebellum. Normal basal cisterns. MRI/Brain W/WO Contrast IMPRESSION: Nonspecific bilateral optic neuritis. No enhancing optic nerve or other orbital masses Electronically Signed: Christo Johnson MD at 16:27 EDT , Service support , CC: Joss Heredia MD; Gentry Ward MD Account Information Clerk: Signed BUN Collected: 01/16/2018 Status: F Source: [place] 10:40 AM [facility] REPOSITORY TYPE CODE TESTS RESULT OUT OF RANGE REFERENCE UNITS LAB L501.1000 7-18 mg/dL High BUN 22 Performed By: #### L501.1000, L501.1105 #### [facility] [address] [place], [place], [address] SERUM CREATININE AND Collected: 01/16/2018 Status: F Source: [place] GFR 10:40 AM [facility] REPOSITORY TYPE CODE TESTS RESULT OUT OF RANGE REFERENCE UNITS LAB L501.1100 0.70-1.30 mg/dL Normal 0.85 CREAT,SERUM Result Comment: The validity of the calculated GFR AND GFRAA in patients over 70 years has not been determined. Clinical correlation is essential. LAB L501.1110 >60 mL/min Normal EST GFR 95 Result Comment: Non- GFR Calc LAB L501.1115 >60 mL/min Normal EST GFR - AA 115 Result Comment: GFR Calc Performed By: #### L501.1000, L501.1105 #### [facility] [address] [place], [place], [address] VENOUS DUPLEX LOWER Observed: 12/02/2017 Status: F Source: [place] EXTREMITY 3:52 PM [facility] REPOSITORY [facility] Cardiovascular Services [address] [place] [address] Venous Duplex US, Unilateral 12/01/17 1015 MR#: [id number] Acct: [id number] Name: GERARDO FANG Rep #: [id number] : 1950 67 From: Tip Liz MD Attending Dr: Tip Liz MD Status: REG CLI Ordering Dr: Tip Liz MD Date: 12/01/17 Location: CVS Sex: M C Admitted: Reason For Study: CVI s/P EVLA RIGHT CFV is compressible, spontaneous, phasic, competent and demonstrates normal augmentation. FV, POP V and T/P trunk are partially compressible with bright intraluminal echoes and demonstrate INCOMPETENCY with augmentation. 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 Procedure Exam performed in department. Interpretation Summary Chronic venous changes are noted in the right femoral vein, popliteal vein, and tibio-peroneal trunk, which are partially compressible and demonstrate bright intraluminal echogenicity and incompetence. The right common femoral vein, posterior tibial vein, and peroneal vein are patent and compressible. The right common femoral vein is competent. The right great saphenous vein, small saphenous vein, and accessory small saphenous vein are occluded, consistent with a prior endothermal ablation procedure. The right accessory saphenous vein below the knee is incompetent. An incompetent loader operator/ground leader vein is identified in the right calf, located 12 centimeters proximal to the right medial malleolus. Ordering Physician: Tip Liz Referring Physician: Tip Liz Performed By: Kaitlyn Mercado RVT 12/02/17 1552 Date Tip Liz MD CC: Tip Liz MD; Joss Heredia MD Date Dictated: 12/01/17 1015 Date Transcribed: 12/02/17 1552 Account Information Clerk: Signed RIBS UNIL 2V NO Observed: 09/17/2017 Status: F Source: [place] CXR 10:32 AM [facility] REPOSITORY [facility] Imaging Services [address] [place] [address] Ribs Unil 2V No CXR MR#: [id number] Acct: [id number] Name: GERARDO FANG Rep #: [id number] : 1950 M 67 From: Vinay Mann MD PCP: Joss Heredia MD Status: REG CLI Study: Ribs Unil 2V No CXR Date of Exam: 09/17/17 Exam# [id number] Ordering Dr: Jadon Beverly MD STUDY: X-RAY - UNILATERAL RIBS ( RIGHT ) REASON FOR EXAM: Male, 67 years old. Right-sided rib pain TECHNIQUE: 4 view(s) of the ribs. COMPARISON: None. FINDINGS: There is severe demineralization of the osseous structures which diminishes the diagnostic sensitivity of this examination, however there is no visualized rib fracture. The visualized lung is clear and expanded. RAD/Ribs Unil 2V No CXR IMPRESSION: Demineralization of the osseous structures, no demonstrated acute displaced rib fracture, pleural thickening, or pneumothorax. Electronically Signed: Maikel Mann MD at 8:48 EST , Service support , CC: Jadon Beverly MD; Joss Heredia MD Account Information Clerk: Signed ALLERGIES ALLERGIES DATE TYPE / CODE NAME / CODE REACTION SEVERITY SOURCE 08/28/2017 Drug No Known Unknown [place] [facility] Allergy/4160 Allergies/F00 Hospital 608[address](SNOMED [id number](RXNOR Repository CT) M) ENCOUNTERS ENCOUNTERS ADMIT/DISCHARGE ACCOUNT ADMITTING ENCOUNTER LOCATION SOURCE NUMBER CLASS 08/24/2018 [id number] Ambulatory [place] 3 [facility] Hospital ing:MFPLAB Repository 08/04/2018 [id number] Ambulatory [place] 8 [facility] Hospital ing:WC Repository 07/21/2018 [id number] Ambulatory [place] [address] [facility] ing:LABSPEC Repository 07/14/2018/ [id number] Ambulatory [place] [address] [facility] ing:WC Repository 06/16/2018/ [id number] Ambulatory [place] [address] [facility] ing:WC Repository 05/19/2018/ [id number] Ambulatory [place] 8 1 [facility] Hospital ing:WC Repository 04/21/2018/ [id number] Ambulatory [place] [address] [facility] ing:WC Repository 04/16/2018 [id number] Ambulatory BMSBuilding:W [place] 9 [facility] Hospital Repository 01/22/2018 [id number] Ambulatory [place] 9 [facility] Hospital ing:MRI Repository 01/16/2018 [id number] Ambulatory [place] 0 [facility] Hospital ing:MFPLAB Repository 12/01/2017 [id number] Ambulatory [place] 7 [facility] Hospital ing:CVS Repository 10/02/2017 [id number] Ambulatory [place] 6 [facility] Hospital ing:WC Repository 09/17/2017 [id number] Ambulatory [place] 0 [facility] Hospital ing:MTRAD Repository PAYERS PAYERS ENCOUNTER GUARANTOR PAYER SUBSCRIBER SOURCE 08/24/2018 GERARDO Farr Primary GERARDO [id number] Insurance:MEDICARE WINKLERDOB: [facility] [id number] Repository [id number]: 330 [id number] [phone] () Date:2018-08-24 08/24/2018 Secondary GERARDO H [place] Insurance:MUTUAL OF WINKLERDOB: [facility] Number: [id number] [id number] Repository Date:[id number] [address]RV: 08/24/2018 Tertiary NOT GIVENUNK [place] Insurance:SELF PAY [facility] Number: Effective Repository Date:2018-08-24 08/04/2018 GERARDO H Primary [place]ERARDO H [place] [id number] Insurance:MEDICARE WINKLERDOB: [facility] PART A [facility] [id number] [place] Number: Repository [id number]: 330 [id number] [phone] () Date:2018-03-24 08/04/2018 Secondary GERARDO H [place] Insurance:MUTUAL OF WINKLERDOB: [facility] Number: [id number] [facility] [id number] Repository Date:4767-54-14DXJHCZ OF [place], [place] [address]RJ: 08/04/2018 Tertiary NOT GIVENUNK Mekhi Insurance:SELF PAY [facility] Number: Effective Repository Date:2018-07-23 07/21/2018 GERARDO H Primary GERARDO Farr Emkhi [id number] Insurance:MEDICARE WINKLERDOB: [facility] PART A [facility] [id number] [place] Number: Repository [address]Kuq: 330 [id number] [phone] () Date:2018-07-21 07/21/2018 Secondary GERARDO H [place] Insurance:MUTUAL OF WINKLERDOB: [facility] Number: [id number] Hospital [id number] Repository Date:9922-88-15FPBPJQ OF [place], [place] [address]XS: 07/21/2018 Tertiary NOT GIVENUNK [place] Insurance:SELF PAY [facility] Number: Effective Repository Date:2018-07-21 07/14/2018 Gerardo Farr Primary NOT GIVENUNK [place] [id number] Insurance:SELF PAY [place], [place] Number: Effective Repository [id number]: ([phone]) Date:2018-06-22 [phone] () 06/16/2018 Gerardo H Primary Gerardo Farr [place]ekhi [id number] Insurance:MEDICARE WinklerDOB: [facility] PART A [facility] [id number] [place] Number: Repository [id number]: 330 [id number] [phone] () Date:2018-03-24 06/16/2018 Secondary Gerardo H Mekhi Insurance:MUTUAL OF WinklerDOB: [facility] Number: [id number] Hospital [id number] Repository Date:6344-17-06VKZCIJ [place], [place] [address]FP: 06/16/2018 Tertiary NOT GIVENUNK [place] Insurance:SELF PAY [facility] Number: Effective Repository Date:2018-05-23 05/19/2018 Gerardo H Primary Gerardo Farr [place] [id number] Insurance:MEDICARE WinklerDOB: [facility] PART A [facility] [id number] [place] Number: Repository [id number]: 330 [id number] [phone] () Date:2018-03-24 05/19/2018 Secondary Gerardo H [place] Insurance:MUTUAL OF WinklerDOB: [facility] Number: [id number] Hospital [id number] Repository Date:1603-40-64SNFDKX OF [place], [place] [address]RD: 05/19/2018 Tertiary NOT GIVENUNK [place] Insurance:SELF PAY [facility] Number: Effective Repository Date:2018-04-22 04/21/2018 Gerardo H Primary Gerardo Farr [place] [id number] Insurance:MEDICARE WinklerDOB: [facility] PART [facility] [id number] [place] Number: Repository [id number]: [phone] [id number] [phone] () Date:2018-03-24 04/21/2018 Secondary Gerardo H Mek[place] Insurance:MUTUAL OF WinklerDOB: [facility] Number: [id number] Hospital [id number] Repository Date:4145-85-04[place]IHYRN[place], [place] [address]FR: 04/21/2018 Tertiary NOT GIVENUNK [place] Insurance:SELF PAY [facility] Number: Effective Repository Date:2018-03-24 04/16/2018 Gerardo H Primary Gerardo H Mekhi [id number] Insurance:MEDICARE WinklerDOB: [facility] PART A [facility] [id number] Number[place] Repository [address]Cfo: 330 [id number] [phone] () Date:2018-03-24 04/16/2018 Secondary Gerardo H [place] Insurance:MUTUAL OF WinklerDOB: [facility] Number: [id number] Hospital [id number] Repository Date:2197-37-12QMGSUL OF [place], [place] [address]VY: 04/16/2018 Tertiary NOT GIVENUNK [place] Insurance:SELF PAY [facility] Number: Effective Repository Date:2018-04-16 01/22/2018 Gerardo H Primary Gerardo H [place] [id number] Insurance:MEDICARE WinklerDOB: [facility] [id number] Number: Repository [address]Mxn: 330 [id number] [phone] () Date:2018-01-15 01/22/2018 Secondary Gerardo H [place] Insurance:MUTUAL OF WinklerDOB: [facility] Number: [id number] Hospital [id number] Repository Date:0082-02-51VRGJRZNEMO, [place] [address]JS: 01/22/2018 Tertiary NOT GIVENUNK [place] Insurance:SELF PAY [facility] Number: Effective Repository Date:2018-01-15 01/16/2018 Gerardo H Primary Gerardo H M[place]hi [id number] Insurance:MEDICARE WinklerDOB: [facility] PART [facility] [id number] Number: Repository [address]Yid: 330 [id number] [phone] () Date:2018-01-16 01/16/2018 Secondary Gerardo H [place]hi Insurance:MUTUAL OF WinklerDOB: [facility] Number: [id number] Hospital [id number] Repository Date:3624-39-49ICYGGNOGUNQUIT, [place] [address]EU: 01/16/2018 Tertiary NOT GIVENUNK [place] Insurance:SELF PAY [facility] Number: Effective Repository Date:2018-01-16 12/01/2017 Gerardo H Primary Gerardo H Mekhi [id number] Insurance:MEDICARE WinklerDOB: [facility] PART A [facility] [id number] Number[place] Repository [address]Mjm: 330 [id number] [phone] () Date:2017-09-16 12/01/2017 Secondary Gerardo H M[place]hi Insurance:MUTUAL OF WinklerDOB: [facility] Number: [id number] Hospital [id number] Repository Date:6751-54-12IRLTBJ OF [place], [place] [address]FA: 12/01/2017 Tertiary NOT GIVENUNK [place] Insurance:SELF PAY [facility] Number: Effective Repository Date:2017-09-16 10/02/2017 Gerardo H Primary Gerardo H [place] [id number] Insurance:MEDICARE WinklerDOB: [facility] PART A [facility] [id number] Number: Repository [id number]: 330 [id number] [phone] () Date:2017-07-23 10/02/2017 Secondary Gerardo H Mekhi Insurance:MUTUAL OF WinklerDOB: [facility] Number: [id number] Hospital [id number] Repository Date:5437-62-12[facility]BA[facility] [place] [address]IG: 10/02/2017 Tertiary NOT GIVENUNK [place] Insurance:SELF PAY [facility] Number: Effective Repository Date:2017-09-22 09/17/2017 Gerardo H Primary Gerardo H Mekhi [id number] Insurance:MEDICARE [facility] PART A [facility] [id number] Number: Repository [phone]: [phone] [id number] [phone] () Date:2017-09-17 09/17/2017 Secondary Gerardo H Mekhi Insurance:MUTUAL OF [facility] AsylumB: [facility] Number: [id number] Hospital [id number] Repository Date:8045-86-33LFSWPMNEMO, [place] [address]HT: 09/17/2017 Tertiary NOT GIVENUNK [place] Insurance:SELF PAY [facility] Number: Effective Repository Date:2017-09-17
== END ==
PROVIDERS: Family Provider Family Medicine; PCP Family Medicine; Visit Provider Family Medicine
DX: Z00.00 Encounter for general adult medical examination without abnormal findings (principal); G20 Parkinson's disease
CPT/HCPCS: 36415; 80048; 80061

== ENCOUNTER 2018-12-05 20:49 | Inpatient (IN) | payer MEDICARE, OTHER, SELFPAY ==
[2018-12-05 20:51] VITALS: BP 136/73; PULSE 68; RESP 16; TEMP 36.4; O2SAT 96; BMI 23.1
--- NOTE | 2018-12-05 21:31 | RAD_ITS ---
STUDY: X-RAY - PELVIS REASON FOR EXAM: Male, 68 years old. : Injured right hip TECHNIQUE: One view of the pelvis was obtained. COMPARISON: None. FINDINGS: There is a non-specific bowel gas pattern. Normal visualized soft tissue structures. IVC filter partially imaged to the right of the L3 vertebral body Normal bilateral iliac wings, sacroiliac joints and visualized sacrum. Normal visualized bilateral superior and inferior pubic rami. Normal pubic symphysis. Normal ischial tuberosities. Right femoral neck fracture and moderate varus deformity. Normal visualized right femoral head. Normal right acetabulum. Normal right hip joint. Compression screw sideplate and cerclage wires left hip. Normal visualized left femoral head. Normal left acetabulum. Normal left hip joint. RAD/Pelvis 1 or 2 Views IMPRESSION: Right femoral neck fracture Electronically Signed: Cornelius Fields MD at 23:08 EDT , Service support ,
[2018-12-05] MEDS: HYDROmorphone 0.5 MG/0.5 ML SYRINGE SC (21:42)
--- NOTE | 2018-12-05 21:57 | RAD_ITS ---
STUDY: X-RAY CHEST REASON FOR EXAM: Male, 68 years old. Fell and injured right hip today TECHNIQUE: Single frontal view of the chest. COMPARISON: None. FINDINGS: Mild to moderate increase in interstitial markings. There is no demonstrated pleural abnormality. Normal size heart. Normal mediastinum and slick. Normal visualized pulmonary arteries. Normal visualized aortic arch and descending thoracic aorta. Normal visualized thoracic spine. Normal visualized ribs, clavicles, and shoulders. There is no demonstrated abnormality of the visualized soft tissue structures of the upper abdomen. RAD/Chest 1 View IMPRESSION: Mild to moderate edema Electronically Signed: Cornelius Fields MD at 23:09 EDT , Service support ,
--- NOTE | 2018-12-05 21:57 | RAD_ITS ---
STUDY: X-RAY - RIGHT FEMUR REASON FOR STUDY: Male, 68 years old. Fell and injured right hip TECHNIQUE: 2 view(s) of the femur. COMPARISON: None. FINDINGS: Mid femoral neck fracture slight varus deformity and comminution. Total knee arthroplasty. Normal visualized soft tissue structure. RAD/Femur Min 2 Views IMPRESSION: Femoral neck fracture Electronically Signed: Cornelius Fields MD at 22:55 EDT , Service support ,
--- NOTE | 2018-12-05 22:10 | EKG12_ITS ---
Test Reason : LOWER EXTREMITY Blood Pressure : / mmHG Vent. Rate : 072 BPM Atrial Rate : 072 BPM P-R Int : 146 ms QRS Dur : 096 ms QT Int : 380 ms P-R-T Axes : 051 080 054 degrees QTc Int : 416 ms Normal sinus rhythm Normal ECG Confirmed by SILVERIO MATOS, MANGO ([id number]), image editor PHIL CALDERÓN ([id number]) on 12/07/2018 4:24:50 PM Referred By: DAVIDA Confirmed By:MANGO SAWYER MD
[2018-12-05] MEDS: fentaNYL 100 MCG/2 ML Ampul 50 MCG IV ×2 (22:28→23:28)
[2018-12-05 22:42] LABS: Absolute Lymphocyte Count 1.69 X10^3/ul (0.83-4.51); Absolute Neutrophil Count 5.8 X10^3/uL (2.0-7.7); Basophil# 0.01 X10^3/uL; Basophil% 0.1 % (0-1); Eosinophil# 0.09 X10^3/uL; Eosinophils% 1.1 % (0-5); Hematocrit 43.6 % (40-54); Hemoglobin 14.3 g/dl (13.0-16.5); Lymphocyte # 1.69 X10^3/ul (4.0); Lymphocyte % 20.6 % (19-41); Mean Corp Hgb Conc 32.8 g/gl (32-36); Mean Corpuscular Hgb 31.9 pg (27.0-32.0); Mean Corpuscular Volume 97.3 fL (80-94); Mean Platelet Vol. 10.7 fl (6.2-12.0); Monocyte# 0.63 X10^3/uL; Monocyte% 7.7 % (0-10); Neutrophil # 5.77 X10^3/uL (2.7-7.7); Neutrophil % 70.4 % (47-70); Platelet Count 120 K/mm3 (150-450); RBC Distribution Width CV 13.6 % (11.6-14.6); RBC Distribution Width SD 48.8 fl (35.1-43.9); Red Blood Count 4.48 M/mm3 (4.6-6.2); White Blood Count 8.2 K/mm3 (4.4-11.0)
[2018-12-05 22:43] LABS: Prothrombin Time (Protime)PT. 22.7 SECONDS (11.7-14.9)
[2018-12-05 22:44] LABS: POSITIVE COUNT NO; POSITIVE DIFFERENTIAL NO; POSITIVE MORPHOLOGY NO
[2018-12-05 22:56] LABS: Anion Gap 1 (5-15); BUN 24 mg/dL (7-18); BUN/Creat Ratio 25.2 RATIO (10-20); Calcium,Total 8.3 mg/dL (8.5-10.1); Chloride 110 mmol/L (98-107); Creatinine, Serum 0.95 mg/dL (0.70-1.30); EST Glomerular Filtration Rate 83 mL/min (>60); Est Glom Filt Rate - Afr Amer 101 mL/min (>60); Estimated Creatinine Clearance 85.94 ml/min; Glucose 90 mg/dL (74-106); Sodium Level 139 mmol/L (136-145)
--- NOTE | 2018-12-05 23:13 | HP.PCM_ITS ---
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 Workup in the ED included T 97.6, heart rate 68, BP 136/73, respiratory rate 96, CBC with WBC 8.2, hemoglobin 14.3, platelet 120 without market shift, coags with INR 2, PT 22.7, PTT 36, BMP with chloride 110, BUN/creatinine 24/0.95, glucose 90, EKG with no acute evidence of ischemia, x- ray of the pelvis with evidence of right femoral neck fracture, plain film of the right femur with femoral neck fracture evident, chest x-ray with mild to moderate interstitial markings; however, no dyspnea, edema, orthopnea, stable on RA. 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 The Orthopedic surgeon, Dr. Mcduffie, contacted per ED as well as hospitalist and reviewed case. 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) Chronic venous insufficiency (Chronic) Venous ulcer of right lower extremity with varicose veins (Chronic) History of ulcer of lower extremity (Chronic) Postphlebitic syndrome with inflammation (Chronic) Ulcer, pressure (Chronic) Allergies No Known Allergies Allergy (Verified 08/28/17 10:21) Home Medications: Ambulatory Orders Medication Instructions Recorded Carbidopa/Levodopa 2 each PO TID 12/05/18 [Carbidopa-Levodopa 25-100 Tab] Warfarin Sodium [Coumadin] 2 tab PO DAILY 12/05/18 Surgical History: - - Patient underwent endovenous laser ablation of the right great saphenous vein, the right small saphenous vein, the right accessory saphenous vein on May 04, 2013, right hand surgery, left hip fracture surgery, right total knee replacement, IVC filter placement. Psychiatric History: No pertinent psych hx Lives: Spouse/ Significant Other Smoking Status: Never smoker Tobacco Use: Non-smoker Alcohol: None Drugs: None - *Family History Maternal History Items: Heart Disease - Patient at age 72 secondary to complications from [place], coronary disease. Paternal History Items: No pertinent history - Patient father with no market history, at age 92, no diabetes, heart disease, cancer history. Review of Systems Constitutional: Reports: Malaise, Weakness, Fatigue. Denies: Chills, Fever, Weight Change HEENT: Denies: Head Aches, Sinus Congestion, Sinus Drainage Cardiovascular: Denies: Chest Pain, Palpitations Respiratory: Denies: Cough, Shortness of breath at rest, Sputum production Gastrointestinal: Denies: Abdominal Pain, Nausea, Vomiting Genitourinary: Denies: Dysuria Musculoskeletal: Reports: Back Pain, Joint Pain, Joint stiffness, Joint swelling, Joint Tenderness, Leg Pain Skin: Denies: Rash, Wounds Neurological: Reports: Balance problems. Denies: Focal weakness, Numbness, Tingling Psychiatric: Denies: Anxiety, Depression, Homicidal Ideations, Suicidal Ideations Hematologic/ Lymphatic: Reports: Easy Bruising, Easy Bleeding VTE Information - Inpt Only VTE Present on Admission: No VTE Mechan Device Prophylaxis: SCD's VTE Pharm Prophylaxis ordered?: No Reason prophylaxis not ordered:: Treatment Not Indicated - INR 2.0, holding coumadin. Patient Problems: Active and Suspected Problems Closed right hip fracture (Acute) Subjective: Laying in the ED bed, uncomfortable appearing, noting ongoing discomfort to the right hip, fatigued appearance Objective: Physical Examination: General: awake, alert, oriented x 3 and cooperative, laying in the ED bed, uncomfortable appearing, ongoing R hip pain. Skin: normal color, turgor, no icterus, cyanosis. HEENT: AT/NC, EOMI, PERRLA, mildly dry MM, no carotid bruits or JVD noted. Lungs: CTA bilaterally, moderate effort, moderate decrease BL bases, no rales, ronchi or wheezing. Heart: Regular rate and rhythm; no gallop, rub audible. Abdomen: soft, NTTP, ND, normal BS, no HSM. Extremities: no cyanosis, clubbing, chronic RLE mild edema s/p prior DVTs, s/p fall w/ R hip fracture. Neurological: patient awake, alert, oriented x 3; cognitive function intact; pupils equally reactive to light and accomodation; cranial nerves II-XII grossly normal, moving all 4 extremities although severely limited bilateral lower extremity right greater than left secondary to recent fall with right hip fracture, strength accordingly severely globally decreased. Psychiatric: affect appears comfortable, fatigued, no acute evidence of depressive or anxiety feelings. - Physical Exam Vital Signs Temp Pulse Resp BP Pulse Ox 97.6 F L 68 16 136/73 H 96 12/05/18 20:51 12/05/18 20:51 12/05/18 20:51 12/05/18 20:51 12/05/18 20:51 Oxygen Delivery Method Room Air Weight: 180 lb Body Mass Index (BMI) 23.1 Laboratory Tests Past 24 Hrs 12/05/18 12/05/18 12/05/18 22:20 22:20 22:20 WBC 8.2 RBC 4.48 L Hgb 14.3 Hct 43.6 MCV 97.3 H MCH 31.9 MCHC 32.8 RDW 13.6 RDW Differential 48.8 H Plt Count 120 L MPV 10.7 Immature Gran % (Auto) 0.100 Neut % (Auto) 70.4 H Lymph % (Auto) 20.6 [place] % (Auto) 7.7 Eos % (Auto) 1.1 Baso % (Auto) 0.1 Absolute Neuts (auto) 5.8 Absolute Lymphs (auto) 1.69 Total Counted Not Reportable PT 22.7 H INR 2.0 APTT 36.0 Sodium 139 Potassium 4.0 Chloride 110 H Carbon Dioxide 28.0 Anion Gap 1 L BUN 24 H Creatinine 0.95 Estim Creat Clear Calc 85.94 Est GFR (MDRD) Af Amer 101 Est GFR (MDRD) Non-Af 83 BUN/Creatinine Ratio 25.2 H Glucose 90 Calcium 8.3 L Assessment/Plan All Active Problems Closed right hip fracture (Acute) Venous hypertension, chronic, with ulcer and inflammation (Resolved) Venous ulcer of ankle (Resolved) The patient is a 68 y/o M w/ PMHx: Parkinson's Disease, History of DVT x 2 w/ right lower extremity postphlebitic syndrome s/p prior IVC Filter on coumadin w/ Factor V Leiden Mutation, History of CVA x 2 prior, History of chronic marcy is/ulcers LE who presents to the [facility] Niraj n 12/05/18 with history of falling in his home off of the second step landing on his right hip with following debility and severe pain. (1) General debility, R hip pain s/p mechanical fall w/ R Femoral Neck fracture: Plain film noting R femoral neck fracture. Orthopedic surgery consulted from ED. Will admit to [facility], allow diet with NPO status needed for possible OR Friday afternoon pending INR trending, holding coumadin, add heparin drip once INR < 2, may necessitate reversal for Friday, obtain TSH, Mag level, beard placement, monitor I/Os, frequent positioning, fall precautions, type and screen w/ plan for T+C. Pain, anti-emetic regimen. PT/OT following operative intervention. CM consulted for discharge planning. Per Santos Perioperative Cardiac Risk Index given 4 METS, age 68, Cr <1.5, independent living status, ASA 2/3 for orthopedic intervention, estimated risk of perioperative myocardial infarction or cardiac arrest mild. EKG without acute evidence of ischemia, chest x-ray with questionable edema, does not fit patient presentation, BNP pending, suspect underlying chronic changes. Will advance to operative intervention Friday pending INR trending. (2) History of DVT w/ Factor V Leiden Mutation Hx: Patient w/ history of x 2 w/ right lower extremity postphlebitic syndrome s/p prior IVC Filter on coumadin, holding with INR trending, transition to heparin drip once appropriate. (3) Parkinson's Disease: Continue home Sinemet regimen, fall precautions, once appropriate s/p hip fracture repair, PT, OT, CM consultations for discharge planning. (4) Hx Prior CVA x 2: Notes prior CVA, deficits primarily memory and vision issues, holding coumadin, transition to heparin drip once appropriate, no on statin, consider addition, monitor BP, currently elevated but in setting of acute pain. (5) DVT Prophylaxis: SCDs, holding coumadin, allow INR to trend down, add heparin drip once < 2, goal </= 1.4 for OR 12/07/18 afternoon, may necessitate reversal. Code Visit Inpatient E&M: 39047 Init Hosp L3
[2018-12-05 23:15] VITALS: BP 155/78; PULSE 67; RESP 15; O2SAT 96
--- NOTE | 2018-12-05 23:57 | ED.VISSUMM ---
- ER Visit Summary Date of Service: 12/05/18 Chief Complaint: Right hip pain History of Present Illness: The patient is a 68 M with right hip pain just prior to arrival. The patient was stepping down from a step and fell to his right side. He complains of hip pain. He did not hit his head or neck. Denies head or neck pain. Denies loss of consciousness. He does take warfarin for factor V mutation and venous thrombi embolism. Denies any other injuries or complaints. Physical Examination: Afebrile and vital signs unremarkable. Head and neck atraumatic. Heart regular. Lungs clear. Right hip tender to palpation. Positive logroll. Neurovascular intact distally. Test Results: X-ray showed a femoral neck fracture. Preop testing including EKG, chest x-ray, labs all unremarkable except for mild to moderate edema on his x-ray and an INR of 2.0. Emergency Department Course and Treatment: Patient received fentanyl for pain. He was discussed with Dr. Mcduffie who advised admission to the hospitalist. I spoke with Dr. Orozco who will admit for further care. Treatment Plan: As above Disposition: Admission Impression: 1. Right hip femoral neck fracture This note was generated with [employer] dictation software. It may contain incorrect words, spelling, and punctuation that were not noted in review of the chart prior to signing
[2018-12-06 00:33] VITALS: BMI 23.1
[2018-12-06 00:47] VITALS: BP 151/89; PULSE 61; RESP 14; TEMP 36.6; O2SAT 98
[2018-12-06 01:31] LABS: Magnesium 2.4 mg/dL (1.6-2.6); Thyroid Stim Hormone (TSH) 2.31 uIU/mL (0.358-3.74)
[2018-12-06 01:35] LABS: BNP,B-Type NATRIURETIC PEPTIDE 19.5 pg/mL (0-100)
[2018-12-06] MEDS: Morphine 2 MG/ML Syringe IV ×3 (06:28→21:36)
[2018-12-06] MEDS: 0.9% NaCl Peripheral Flush Adult/Peds IV ×2 (06:35→06:55)
[2018-12-06 06:41] LABS: International Normalized Ratio 1.9; Prothrombin Time (Protime)PT. 21.7 SECONDS (11.7-14.9)
[2018-12-06 06:48] VITALS: BP 141/79; PULSE 60; RESP 16; TEMP 36.3; O2SAT 98
[2018-12-06 06:49] LABS: Absolute Lymphocyte Count 1.13 X10^3/ul (0.83-4.51); Absolute Neutrophil Count 3.8 X10^3/uL (2.0-7.7); Basophil# 0.01 X10^3/uL; Basophil% 0.2 % (0-1); Eosinophil# 0.11 X10^3/uL; Hematocrit 44.4 % (40-54); Hemoglobin 14.3 g/dl (13.0-16.5); Lymphocyte # 1.13 X10^3/ul (4.0); Lymphocyte % 20.4 % (19-41); Mean Corp Hgb Conc 32.2 g/gl (32-36); Mean Corpuscular Hgb 31.5 pg (27.0-32.0); Mean Corpuscular Volume 97.8 fL (80-94); Mean Platelet Vol. 10.4 fl (6.2-12.0); Monocyte# 0.46 X10^3/uL; Monocyte% 8.3 % (0-10); Neutrophil # 3.82 X10^3/uL (2.7-7.7); Neutrophil % 68.9 % (47-70); Platelet Count 119 K/mm3 (150-450); RBC Distribution Width CV 13.5 % (11.6-14.6); RBC Distribution Width SD 48.5 fl (35.1-43.9); Red Blood Count 4.54 M/mm3 (4.6-6.2); White Blood Count 5.5 K/mm3 (4.4-11.0)
[2018-12-06 06:50] LABS: POSITIVE COUNT NO; POSITIVE DIFFERENTIAL NO; POSITIVE MORPHOLOGY NO
[2018-12-06] MEDS: Carbidopa/Levodopa 25/100 Tablet PO ×4 (06:54→21:37)
[2018-12-06 07:31] LABS: Anion Gap 5 (5-15); BUN 17 mg/dL (7-18); BUN/Creat Ratio 20.6 RATIO (10-20); Calcium,Total 8.2 mg/dL (8.5-10.1); Chloride 109 mmol/L (98-107); Creatinine, Serum 0.83 mg/dL (0.70-1.30); EST Glomerular Filtration Rate 98 mL/min (>60); Est Glom Filt Rate - Afr Amer 119 mL/min (>60); Estimated Creatinine Clearance 98.37 ml/min; Glucose 99 mg/dL (74-106); Potassium 4.2 mmol/L (3.5-5.1); Sodium Level 142 mmol/L (136-145)
[2018-12-06 08:02] VITALS: O2SAT 98
[2018-12-06 09:30] VITALS: BP 120/69; PULSE 60; RESP 20; TEMP 36.6; O2SAT 96
[2018-12-06] MEDS: oxyCODONE 5 MG Tablet PO ×4 (09:54→23:32)
[2018-12-06] MEDS: Docusate Sodium 100 MG Capsule 200 MG PO (10:22)
[2018-12-06] MEDS: Famotidine 20 MG Tablet PO ×2 (10:22→21:36)
--- NOTE | 2018-12-06 10:29 | PCM.PN.HOSP ---
Patient Problems: Active and Suspected Problems Closed right hip fracture (Acute) Subjective: Patient seen and examined. He was admitted with complaint of fall after he lost his balance with a history of right hip pain and debility. He was found to have right femoral neck fracture on x-rays done. He has been managed for right femoral neck fracture. Orthopedics on board. Patient has no complaints this morning. Pain is well controlled and he rates it at about 6. Denies any palpitations or dizziness, chest pain, palpitation, abdominal pain, diarrhea vomiting. He does have a history of factor V Leiden mutation and is on chronic Coumadin. Coumadin currently on hold. Labs and vitals reviewed. Vitals/I&O's: Vital Signs Temp Pulse Resp BP Pulse Ox 98 F 60 20 H 120/69 96 12/06/18 09:30 12/06/18 09:30 12/06/18 09:30 12/06/18 09:30 12/06/18 09:30 Oxygen Delivery Method Room Air Weight: 180 lb Body Mass Index (BMI) 23.1 Intake and Output for Last 24 Hours 12/04/18 12/05/18 12/06/18 23:59 23:59 23:59 Intake Total 200 / 200 Output Total 550 / 550 Balance -350 / -350 General: Alert, Oriented x3, Cooperative, No apparent distress HEENT: Atraumatic, PERRLA, EOMI, Normocephalic Oral: Moist Mucosa Neck: Supple, No JVD, Negative Carotid Bruits Lungs: Clear to auscultation, Normal air movement, No rhonchi, No wheeze, No rales Cardiovascular: Regular rate, Regular Rhythm, Normal S1, Normal S2, No murmurs Abdomen: Bowel Sounds Present, Soft, Non Tender, Non-Distended, No Hepato-splenomegaly Extremities: No clubbing, No cyanosis, No edema, Capillary Refill Less than 3 Seconds Skin: No rashes, No breakdown Musculoskeletal: - - RLE shortened, externally rotated Lymphatic: No Cervical, Supraclavicular, or Inguinal Adenopathy Neurological: Cranial nerves II-XII grossly intact, Neuro grossly intact Psych/Mental Status: Normal Affect, Appropriate, Alert and oriented to time, place, person, mood and affect Laboratory Results 12/05/18 22:20: WBC 8.2, RBC 4.48 L, Hgb 14.3, Hct 43.6, MCV 97.3 H, MCH 31.9, MCHC 32.8, RDW 13.6, RDW Differential 48.8 H, Plt Count 120 L, MPV 10.7, Immature Gran % (Auto) 0.100, Neut % (Auto) 70.4 H, Lymph % (Auto) 20.6, [place] % (Auto) 7.7, Eos % (Auto) 1.1, Baso % (Auto) 0.1, Absolute Neuts (auto) 5.8, Absolute Lymphs (auto) 1.69, Total Counted Not Reportable 12/05/18 22:20: PT 22.7 H, INR 2.0, APTT 36.0 12/05/18 22:20: Sodium 139, Potassium 4.0, Chloride 110 H, Carbon Dioxide 28.0, Anion Gap 1 L, BUN 24 H, Creatinine 0.95, Estim Creat Clear Calc 85.94, Est GFR (MDRD) Af Amer 101, Est GFR (MDRD) Non-Af 83, BUN/Creatinine Ratio 25.2 H, Glucose 90, Calcium 8.3 L 12/05/18 22:20: Magnesium 2.4, TSH 2.31 12/05/18 22:20: B-Natriuretic Peptide 19.5 12/06/18 06:12: Blood Type Pending, Antibody Screen Pending 12/06/18 06:12: WBC 5.5, RBC 4.54 L, Hgb 14.3, Hct 44.4, MCV 97.8 H, MCH 31.5, MCHC 32.2, RDW 13.5, RDW Differential 48.5 H, Plt Count 119 L, MPV 10.4, Immature Gran % (Auto) 0.200, Neut % (Auto) 68.9, Lymph % (Auto) 20.4, [place] % (Auto) 8.3, Eos % (Auto) 2.0, Baso % (Auto) 0.2, Absolute Neuts (auto) 3.8, Absolute Lymphs (auto) 1.13, Total Counted Not Reportable 12/06/18 06:12: PT 21.7 H, INR 1.9 12/06/18 06:12: Sodium 142, Potassium 4.2, Chloride 109 H, Carbon Dioxide 28.0, Anion Gap 5, BUN 17, Creatinine 0.83, Estim Creat Clear Calc 98.37, Est GFR (MDRD) Af Amer 119, Est GFR (MDRD) Non-Af 98, BUN/Creatinine Ratio 20.6 H, Glucose 99, Calcium 8.2 L Diagnostic Data Pelvis X-Ray 12/05/18 21:31 IMPRESSION: Right femoral neck fracture Electronically Signed: Cornelius Fields MD at 23:08 EDT , Service support , Chest X-Ray 12/05/18 21:57 IMPRESSION: Mild to moderate edema Electronically Signed: Cornelius Fields MD at 23:09 EDT , Service support , Femur X-Ray 12/05/18 21:57 IMPRESSION: Femoral neck fracture Electronically Signed: Cornelius Fields MD at 22:55 EDT , Service support , Current Medications Al Hydroxide/Mg Hydroxide (Mylanta Ii) 30 ml PO Q6H PRN PRN PRN Reason: Gastric Burning Carbidopa/Levodopa (Sinemet) 1 tablet PO TID [facility] Last Admin: 12/06/18 06:54 Dose: 1 tablet Docusate Sodium (Colace) 200 mg PO BID PRN PRN PRN Reason: Constipation Last Admin: 12/06/18 10:22 Dose: 200 mg Famotidine (Pepcid) 20 mg PO BID [facility] Last Admin: 12/06/18 10:22 Dose: 20 mg Hydralazine HCl (Apresoline Iv) 10 mg IV Q4H PRN PRN PRN Reason: SBP > 160 Magnesium Hydroxide (Milk Of Magnesia) 30 ml PO DAILY PRN PRN PRN Reason: Constipation Morphine Sulfate () 2 - 4 mg IV Q3H PRN PRN PRN Reason: Severe Pain (pain scale 6-10) Last Admin: 12/06/18 06:54 Dose: 2 mg Morphine Sulfate () 1 - 2 mg IV Q4H PRN PRN PRN Reason: Moderate Pain (pain scale 4-5) Ondansetron HCl (Zofran) 4 mg IV Q8H PRN PRN PRN Reason: Nausea Oxycodone HCl (Oxyir) 5 mg PO Q4H PRN PRN PRN Reason: Moderate Pain (pain scale 4-5) Last Admin: 12/06/18 09:54 Dose: 5 mg Polyethylene Glycol (Miralax) 17 gm PO DAILY [facility] Last Admin: 12/06/18 10:23 Dose: Not Given Prochlorperazine Edisylate (Compazine Iv) 10 mg IV Q6H PRN PRN PRN Reason: Nausea/Vomiting Sodium Chloride () 5 - 15 ml IV UD PRN PRN Reason: SALINE FLUSH Last Admin: 12/06/18 06:55 Dose: 10 ml Medical Necessity - Tobacco Use Smoking Status: Never smoker Tobacco Use: Non-smoker Assessment/Plan All Active Problems Closed right hip fracture (Acute) Venous hypertension, chronic, with ulcer and inflammation (Resolved) Venous ulcer of ankle (Resolved) 1. Right femoral neck fracture due to mechanical fall pain well controlled today. xray of right hip showed mid femoral neck fracture with slight varus deformity and comminution. on morphine prn for pain coumadin on hold orthopedic surgery on board RCRI- 0, indicating 3.9% 30-day risk of , [place] or cardiac arrest usually very ambulant at home, METS >4 CXR did show ?pulmonary edema, but BNP was only 19.5 will monitor 2. 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 Is s/p IVC filter placement coumadin is now 1.9; discussed with DR Carney, his preference is heparin drip as bridging anticoagulation; Heparin to be stopped at 3am as surgery is planned ~ 3pm, per Dr Carney. 3. Parkinson's disease: On Sinemet. Fall precautions. PT/OT on board. 4. History of prior CVA x2: stable. GI prophylaxis: famotidine DVT prophylaxis: INR<1.9. heparin drip started. To stop at 3am in preparation for surgery. Code Visit Inpatient E&M: [id number] [facility] Hosp
--- NOTE | 2018-12-06 10:33 | PN_ITS ---
Patient Problems: Active and Suspected Problems Closed right hip fracture (Acute) Subjective: Patient seen and examined. He was admitted with complaint of fall after he lost his balance with a history of right hip pain and debility. He was found to have right femoral neck fracture on x-rays done. He has been managed for right f emoral neck fracture. Orthopedics on board. Patient has no complaints this morning. Pain is well controlled and he rates it at about 6. Denies any palpitations or dizziness, chest pain, palpitation, abdominal pain, diarrhea vomiting. He does have a history of factor V Leiden mutation and is on chronic Coumadin. Coumadin currently on hold. Labs and vitals reviewed. Vitals/I&O's: Vital Signs Temp Pulse Resp BP Pulse Ox 98 F 60 20 H 120/69 96 12/06/18 09:30 12/06/18 09:30 12/06/18 09:30 12/06/18 09:30 12/06/18 09:30 Oxygen Delivery Method Room Air Weight: 180 lb Body Mass Index (BMI) 23.1 Intake and Output for Last 24 Hours 12/04/18 12/05/18 12/06/18 23:59 23:59 23:59 Intake Total 200 / 200 Output Total 550 / 550 Balance -350 / -350 General: Alert, Oriented x3, Cooperative, No apparent distress HEENT: Atraumatic, PERRLA, EOMI, Normocephalic Oral: Moist Mucosa Neck: Supple, No JVD, Negative Carotid Bruits Lungs: Clear to auscultation, Normal air movement, No rhonchi, No wheeze, No rales Cardiovascular: Regular rate, Regular Rhythm, Normal S1, Normal S2, No murmurs Abdomen: Bowel Sounds Present, Soft, Non Tender, Non-Distended, No Hepato- splenomegaly Extremities: No clubbing, No cyanosis, No edema, Capillary Refill Less than 3 Seconds Skin: No rashes, No breakdown Musculoskeletal: - - RLE shortened, externally rotated Lymphatic: No Cervical, Supraclavicular, or Inguinal Adenopathy Neurological: Cranial nerves II-XII grossly intact, Neuro grossly intact Psych/Mental Status: Normal Affect, Appropriate, Alert and oriented to time, place, person, mood and affect Laboratory Results 12/05/18 22:20: WBC 8.2, RBC 4.48 L, Hgb 14.3, Hct 43.6, MCV 97.3 H, MCH 31.9, MCHC 32.8, RDW 13.6, RDW Differential 48.8 H, Plt Count 120 L, MPV 10.7, Immature Gran % (Auto) 0.100, Neut % (Auto) 70.4 H, Lymph % (Auto) 20.6, [place] % (Auto) 7.7, Eos % (Auto) 1.1, Baso % (Auto) 0.1, Absolute Neuts (auto) 5.8, Absolute Lymphs (auto) 1.69, Total Counted Not Reportable 12/05/18 22:20: PT 22.7 H, INR 2.0, APTT 36.0 12/05/18 22:20: Sodium 139, Potassium 4.0, Chloride 110 H, Carbon Dioxide 28.0, Anion Gap 1 L, BUN 24 H, Creatinine 0.95, Estim Creat Clear Calc 85.94, Est GFR (MDRD) Af Amer 101, Est GFR (MDRD) Non-Af 83, BUN/Creatinine Ratio 25.2 H, Glucose 90, Calcium 8.3 L 12/05/18 22:20: Magnesium 2.4, TSH 2.31 12/05/18 22:20: B-Natriuretic Peptide 19.5 12/06/18 06:12: Blood Type Pending, Antibody Screen Pending 12/06/18 06:12: WBC 5.5, RBC 4.54 L, Hgb 14.3, Hct 44.4, MCV 97.8 H, MCH 31.5, MCHC 32.2, RDW 13.5, RDW Differential 48.5 H, Plt Count 119 L, MPV 10.4, Immature Gran % (Auto) 0.200, Neut % (Auto) 68.9, Lymph % (Auto) 20.4, [place] % (Auto) 8.3, Eos % (Auto) 2.0, Baso % (Auto) 0.2, Absolute Neuts (auto) 3.8, Absolute Lymphs (auto) 1.13, Total Counted Not Reportable 12/06/18 06:12: PT 21.7 H, INR 1.9 12/06/18 06:12: Sodium 142, Potassium 4.2, Chloride 109 H, Carbon Dioxide 28.0, Anion Gap 5, BUN 17, Creatinine 0.83, Estim Creat Clear Calc 98.37, Est GFR (MDRD) Af Amer 119, Est GFR (MDRD) Non-Af 98, BUN/Creatinine Ratio 20.6 H, Glucose 99, Calcium 8.2 L Diagnostic Data Pelvis X-Ray 12/05/18 21:31 IMPRESSION: Right femoral neck fracture Electronically Signed: Cornelius Fields MD at 23:08 EDT , Service support , Chest X-Ray 12/05/18 21:57 IMPRESSION: Mild to moderate edema Electronically Signed: Cornelius Fields MD at 23:09 EDT , Service support , Femur X-Ray 12/05/18 21:57 IMPRESSION: Femoral neck fracture Electronically Signed: Cornelius Fields MD at 22:55 EDT , Service support , Current Medications Al Hydroxide/Mg Hydroxide (Mylanta Ii) 30 ml PO Q6H PRN PRN PRN Reason: Gastric Burning Carbidopa/Levodopa (Sinemet) 1 tablet PO TID [facility] Last Admin: 12/06/18 06:54 Dose: 1 tablet Docusate Sodium (Colace) 200 mg PO BID PRN PRN PRN Reason: Constipation Last Admin: 12/06/18 10:22 Dose: 200 mg Famotidine (Pepcid) 20 mg PO BID [facility] Last Admin: 12/06/18 10:22 Dose: 20 mg Hydralazine HCl (Apresoline Iv) 10 mg IV Q4H PRN PRN PRN Reason: SBP > 160 Magnesium Hydroxide (Milk Of Magnesia) 30 ml PO DAILY PRN PRN PRN Reason: Constipation Morphine Sulfate () 2 - 4 mg IV Q3H PRN PRN PRN Reason: Severe Pain (pain scale 6-10) Last Admin: 12/06/18 06:54 Dose: 2 mg Morphine Sulfate () 1 - 2 mg IV Q4H PRN PRN PRN Reason: Moderate Pain (pain scale 4-5) Ondansetron HCl (Zofran) 4 mg IV Q8H PRN PRN PRN Reason: Nausea Oxycodone HCl (Oxyir) 5 mg PO Q4H PRN PRN PRN Reason: Moderate Pain (pain scale 4-5) Last Admin: 12/06/18 09:54 Dose: 5 mg Polyethylene Glycol (Miralax) 17 gm PO DAILY [facility] Last Admin: 12/06/18 10:23 Dose: Not Given Prochlorperazine Edisylate (Compazine Iv) 10 mg IV Q6H PRN PRN PRN Reason: Nausea/Vomiting Sodium Chloride () 5 - 15 ml IV UD PRN PRN Reason: SALINE FLUSH Last Admin: 12/06/18 06:55 Dose: 10 ml Medical Necessity - Tobacco Use Smoking Status: Never smoker Tobacco Use: Non-smoker Assessment/Plan All Active Problems Closed right hip fracture (Acute) Venous hypertension, chronic, with ulcer and inflammation (Resolved) Venous ulcer of ankle (Resolved) 1. Right femoral neck fracture due to mechanical fall * pain well controlled today. * xray of right hip showed mid femoral neck fracture with slight varus deformity and comminution. * on morphine prn for pain * coumadin on hold * orthopedic surgery on board * RCRI- 0, indicating 3.9% 30-day risk of , [place] or cardiac arrest * usually very ambulant at home, METS >4 * CXR did show ?pulmonary edema, but BNP was only 19.5 * will monitor * 2. 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 Is s/p IVC filter placement * coumadin is now 1.9; discussed with DR Carney, his preference is heparin drip as bridging anticoagulation; Heparin to be stopped at 3am as surgery is planned ~ 3pm, per Dr Carney. * 3. Parkinson's disease: On Sinemet. Fall precautions. PT/OT on board. * 4. History of prior CVA x2: stable. GI prophylaxis: famotidine DVT prophylaxis: INR<1.9. heparin drip started. To stop at 3am in preparation for surgery. Code Visit Inpatient E&M: [id number] [facility] Hosp
[2018-12-06 11:53] LABS: Partial Thromboplast Time 36.5 Seconds (24.1-36.2)
[2018-12-06] MEDS: HEPARIN/D5w 25,000 UNITS 25,000 UNITS/250 ML IV.SOLN. 10 UNITS IV (13:24)
[2018-12-06 15:30] VITALS: BP 118/66; PULSE 60; RESP 20; TEMP 36.6; O2SAT 96
--- NOTE | 2018-12-06 15:57 | PCM.CONS.GEN ---
Reason for Consult Date of Consultation: 12/06/18 Reason for Consultation: Right displaced femoral neck fracture History of Present Illness: The patient is a 68 year old M with Parkinson's who is on Coumadin for factor V Leiden who has had multiple blood clots in the past who had a fall down the basement steps at home yesterday evening who presented to the emergency room department where x-rays were taken demonstrating a right displaced femoral neck fracture. He denies any other injuries loss of consciousness. He does have a history of right lower extremity ulcerations and right total knee arthroplasty. 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) Chronic venous insufficiency (Chronic) Venous ulcer of right lower extremity with varicose veins (Chronic) History of ulcer of lower extremity (Chronic) Postphlebitic syndrome with inflammation (Chronic) Ulcer, pressure (Chronic) Allergies No Known Allergies Allergy (Verified 08/28/17 10:21) Home Medications: Ambulatory Orders Medication Instructions Recorded Carbidopa/Levodopa 2 each PO TID 12/05/18 [Carbidopa-Levodopa 25-100 Tab] Warfarin Sodium [Coumadin] 2 tab PO DAILY 12/05/18 Surgical History: - - Patient underwent endovenous laser ablation of the right great saphenous vein, the right small saphenous vein, the right accessory saphenous vein on May 04, 2013, right hand surgery, left hip fracture surgery, right total knee replacement, IVC filter placement. Psychiatric History: No pertinent psych hx Lives: Spouse/ Significant Other Smoking Status: Never smoker Tobacco Use: Non-smoker Alcohol: None Drugs: None - *Family History Paternal History Items: No pertinent history - Patient father with no market history, at age 92, no diabetes, heart disease, cancer history. Maternal History Items: Heart Disease - Patient at age 72 secondary to complications from HI, coronary disease. Patient Problems: Active and Suspected Problems Closed right hip fracture (Acute) - Physical Exam General: Alert, Oriented x3, Cooperative HEENT: Atraumatic, Normocephalic Extremities: - - Right lower extremity is shortened and externally rotated he does have palpable pedal pulses intact sensation to light touch is compartments are soft chronic discoloration of skin of lower extremities from venous insufficiency. There is no joint effusion or tenderness about the knee or ankle. The compartments in the thigh and calf are soft and supple Vital Signs Temp Pulse Resp BP Pulse Ox 98 F 60 20 H 118/66 96 12/06/18 15:30 12/06/18 15:30 12/06/18 15:30 12/06/18 15:30 12/06/18 15:30 Oxygen Delivery Method Room Air Weight: 180 lb Body Mass Index (BMI) 23.1 Intake and Output for Last 24 Hours 12/04/18 12/05/18 12/06/18 23:59 23:59 23:59 Intake Total 680 / 680 Output Total 950 / 950 Balance -270 / -270 Laboratory Tests Past 24 Hrs 12/05/18 12/05/18 12/05/18 22:20 22:20 22:20 WBC 8.2 RBC 4.48 L Hgb 14.3 Hct 43.6 MCV 97.3 H MCH 31.9 MCHC 32.8 RDW 13.6 RDW Differential 48.8 H Plt Count 120 L MPV 10.7 Immature Gran % (Auto) 0.100 Neut % (Auto) 70.4 H Lymph % (Auto) 20.6 [place] % (Auto) 7.7 Eos % (Auto) 1.1 Baso % (Auto) 0.1 Absolute Neuts (auto) 5.8 Absolute Lymphs (auto) 1.69 Total Counted Not Reportable PT 22.7 H INR 2.0 APTT 36.0 Sodium 139 Potassium 4.0 Chloride 110 H Carbon Dioxide 28.0 Anion Gap 1 L BUN 24 H Creatinine 0.95 Estim Creat Clear Calc 85.94 Est GFR (MDRD) Af Amer 101 Est GFR (MDRD) Non-Af 83 BUN/Creatinine Ratio 25.2 H Glucose 90 Calcium 8.3 L Magnesium B-Natriuretic Peptide TSH Blood Type Antibody Screen 12/05/18 12/05/18 12/06/18 22:20 22:20 06:12 WBC RBC Hgb Hct MCV MCH MCHC RDW RDW Differential Plt Count MPV Immature Gran % (Auto) Neut % (Auto) Lymph % (Auto) [place] % (Auto) Eos % (Auto) Baso % (Auto) Absolute Neuts (auto) Absolute Lymphs (auto) Total Counted PT INR APTT Sodium Potassium Chloride Carbon Dioxide Anion Gap BUN Creatinine Estim Creat Clear Calc Est GFR (MDRD) Af Amer Est GFR (MDRD) Non-Af BUN/Creatinine Ratio Glucose Calcium Magnesium 2.4 B-Natriuretic Peptide 19.5 TSH 2.31 Blood Type A POSITIVE Antibody Screen NEGATIVE 12/06/18 12/06/18 12/06/18 06:12 06:12 06:12 WBC 5.5 RBC 4.54 L Hgb 14.3 Hct 44.4 MCV 97.8 H MCH 31.5 MCHC 32.2 RDW 13.5 RDW Differential 48.5 H Plt Count 119 L MPV 10.4 Immature Gran % (Auto) 0.200 Neut % (Auto) 68.9 Lymph % (Auto) 20.4 [place] % (Auto) 8.3 Eos % (Auto) 2.0 Baso % (Auto) 0.2 Absolute Neuts (auto) 3.8 Absolute Lymphs (auto) 1.13 Total Counted Not Reportable PT 21.7 H INR 1.9 APTT Sodium 142 Potassium 4.2 Chloride 109 H Carbon Dioxide 28.0 Anion Gap 5 BUN 17 Creatinine 0.83 Estim Creat Clear Calc 98.37 Est GFR (MDRD) Af Amer 119 Est GFR (MDRD) Non-Af 98 BUN/Creatinine Ratio 20.6 H Glucose 99 Calcium 8.2 L Magnesium B-Natriuretic Peptide TSH Blood Type Antibody Screen 12/06/18 11:28 WBC RBC Hgb Hct MCV MCH MCHC RDW RDW Differential Plt Count MPV Immature Gran % (Auto) Neut % (Auto) Lymph % (Auto) [place] % (Auto) Eos % (Auto) Baso % (Auto) Absolute Neuts (auto) Absolute Lymphs (auto) Total Counted PT INR APTT 36.5 H Sodium Potassium Chloride Carbon Dioxide Anion Gap BUN Creatinine Estim Creat Clear Calc Est GFR (MDRD) Af Amer Est GFR (MDRD) Non-Af BUN/Creatinine Ratio Glucose Calcium Magnesium B-Natriuretic Peptide TSH Blood Type Antibody Screen Assessment/Plan All Active Problems Closed right hip fracture (Acute) Venous hypertension, chronic, with ulcer and inflammation (Resolved) Venous ulcer of ankle (Resolved) We discussed his fracture and risk benefits and alternatives of surgical versus nonsurgical treatment which would include a right hip hemiarthroplasty. Patient and his are in agreement to proceed. We will continue to hold while his Coumadin levels fall we will need to have his INR less than 1.5 and his anticoagulation held after 3 AM for a planned 3 PM surgery. He will be n.p.o. in the morning antibiotics and tranexamic acid topical ordered on-call to OR. Informed consent signed and placed on the chart.
[2018-12-06 20:00] VITALS: BP 115/60; PULSE 67; RESP 16; TEMP 36.7; O2SAT 95
[2018-12-06 21:30] LABS: Partial Thromboplast Time 65.6 Seconds (24.1-36.2)
[2018-12-06] MEDS: Ondansetron 4 MG/2 ML Vial IV (23:32)
[2018-12-07] VITALS (12 sets, daily range): BP systolic 130–154; BP diastolic 66–100; PULSE 53–86; RESP 16–18; TEMP 36.3–37; O2SAT 92–100; BMI 23.1
[2018-12-07] MEDS: Morphine 2 MG/ML Syringe IV ×2 (02:13→13:35)
[2018-12-07] MEDS: oxyCODONE 5 MG Tablet PO ×3 (03:14→22:35)
[2018-12-07 06:28] LABS: Absolute Neutrophil Count 3.6 X10^3/uL (2.0-7.7); Eosinophil# 0.11 X10^3/uL; Hematocrit 43.4 % (40-54); Hemoglobin 13.8 g/dl (13.0-16.5); Lymphocyte % 22.3 % (19-41); Mean Corp Hgb Conc 31.8 g/gl (32-36); Mean Corpuscular Hgb 31.7 pg (27.0-32.0); Mean Corpuscular Volume 99.5 fL (80-94); Mean Platelet Vol. 10.7 fl (6.2-12.0); Monocyte# 0.43 X10^3/uL; Neutrophil # 3.61 X10^3/uL (2.7-7.7); Neutrophil % 67.3 % (47-70); Platelet Count 104 K/mm3 (150-450); RBC Distribution Width CV 13.3 % (11.6-14.6); RBC Distribution Width SD 48.2 fl (35.1-43.9); Red Blood Count 4.36 M/mm3 (4.6-6.2); White Blood Count 5.4 K/mm3 (4.4-11.0)
[2018-12-07 06:29] LABS: POSITIVE COUNT NO; POSITIVE DIFFERENTIAL NO; POSITIVE MORPHOLOGY NO
[2018-12-07 06:31] LABS: International Normalized Ratio 1.4; Prothrombin Time (Protime)PT. 17.2 SECONDS (11.7-14.9)
[2018-12-07] MEDS: Carbidopa/Levodopa 25/100 Tablet PO ×3 (06:35→19:13)
[2018-12-07 06:45] LABS: AST(SGOT) 17 U/L (15-37); Alanine Aminotransfer ALT/SGPT 11 U/L (16-61); Albumin, Serum 2.9 g/dL (3.2-5.0); Alkaline Phosphatase 65 U/L (45-117); Anion Gap 4 (5-15); BUN 15 mg/dL (7-18); BUN/Creat Ratio 17.2 RATIO (10-20); Bilirubin, Direct 0.24 mg/dL (0.00-0.30); Chloride 107 mmol/L (98-107); Creatinine, Serum 0.87 mg/dL (0.70-1.30); EST Glomerular Filtration Rate 92 mL/min (>60); Est Glom Filt Rate - Afr Amer 112 mL/min (>60); Estimated Creatinine Clearance 93.85 ml/min; Globulin 3.3 g/dL (2.2-4.2); Glucose 109 mg/dL (74-106); Potassium 4.2 mmol/L (3.5-5.1); Protein, Total 6.2 g/dL (6.4-8.2); Sodium Level 140 mmol/L (136-145)
[2018-12-07 09:29] LABS: Partial Thromboplast Time 34.8 Seconds (24.1-36.2)
--- NOTE | 2018-12-07 09:59 | CASEMGMT ---
Social Work: Met with patient in room to discuss D/C planning. Patient was independent before this admission. Patient fell Friday night while going down to the basement. 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 Patient lives with and son in a 2 story home with a first floor set up and 3 stairs to enter. Discussed D/C plan. Patient is unsure of plan at this time as he wants to wait to see how therapy goes after surgery today. Patient verbalizes that he may be interested in going to [facility] post surgery depending on how therapy goes tomorrow. SW to follow to assist as needed with D/c planning. PLAN: Undetermined at this time until patient works with therapy post surgery. SW to follow. JOAQUIM Lpoez
--- NOTE | 2018-12-07 10:19 | PCM.PN.HOSP ---
Patient Problems: Active and Suspected Problems Closed right hip fracture (Acute) Subjective: Patient seen and examined. He had an uneventful night and has no complaints. Review of systems otherwise negative. Labs and vitals reviewed. Heparin drip currently on hold. He is to go for surgery this afternoon at 3pm. Labs and vitals reviewed Vitals/I&O's: Vital Signs Temp Pulse Resp BP Pulse Ox 98.1 F 53 L 16 130/66 H 93 12/07/18 10:14 12/07/18 10:14 12/07/18 10:14 12/07/18 10:14 12/07/18 10:14 Oxygen Delivery Method Room Air Weight: 180 lb Body Mass Index (BMI) 23.1 Intake and Output for Last 24 Hours 12/05/18 12/06/18 12/07/18 23:59 23:59 23:59 Intake Total 1205 / 1205 429 / 429 Output Total 1650 / 1650 625 / 625 Balance -445 / -445 -196 / -196 General: Alert, Oriented x3, Cooperative, No apparent distress HEENT: Atraumatic, PERRLA, EOMI, Normocephalic Oral: Moist Mucosa Neck: Supple, No JVD, Negative Carotid Bruits Lungs: Clear to auscultation, Normal air movement, No rhonchi, No wheeze, No rales Cardiovascular: Regular rate, Regular Rhythm, Normal S1, Normal S2, No murmurs Abdomen: Bowel Sounds Present, Soft, Non Tender, Non-Distended, No Hepato-splenomegaly Extremities: No clubbing, No cyanosis, No edema, Capillary Refill Less than 3 Seconds Skin: No rashes, No breakdown Musculoskeletal: - - RLE shortened, externally rotated Lymphatic: No Cervical, Supraclavicular, or Inguinal Adenopathy Neurological: Cranial nerves II-XII grossly intact, Neuro grossly intact Psych/Mental Status: Normal Affect, Appropriate, Alert and oriented to time, place, person, mood and affect Laboratory Results 12/06/18 06:12: Blood Type A POSITIVE, Antibody Screen NEGATIVE 12/06/18 11:28: APTT 36.5 H 12/06/18 19:42: APTT 65.6 H 12/07/18 05:56: WBC 5.4, RBC 4.36 L, Hgb 13.8, Hct 43.4, MCV 99.5 H, MCH 31.7, MCHC 31.8 L, RDW 13.3, RDW Differential 48.2 H, Plt Count 104 L, MPV 10.7, Immature Gran % (Auto) 0.400, Neut % (Auto) 67.3, Lymph % (Auto) 22.3, [place] % (Auto) 8.0, Eos % (Auto) 2.0, Baso % (Auto) 0.0, Absolute Neuts (auto) 3.6, Absolute Lymphs (auto) 1.20, Total Counted Not Reportable 12/07/18 05:56: PT 17.2 H, INR 1.4 12/07/18 05:56: Sodium 140, Potassium 4.2, Chloride 107, Carbon Dioxide 29.0, Anion Gap 4 L, BUN 15, Creatinine 0.87, Estim Creat Clear Calc 93.85, Est GFR (MDRD) Af Amer 112, Est GFR (MDRD) Non-Af 92, BUN/Creatinine Ratio 17.2, Glucose 109 H, Calcium 8.0 L, Total Bilirubin 1.00, Direct Bilirubin 0.24, AST 17, ALT 11 L, Alkaline Phosphatase 65, Total Protein 6.2 L, Albumin 2.9 L, Globulin 3.3 12/07/18 09:00: APTT 34.8 Current Medications Al Hydroxide/Mg Hydroxide (Mylanta Ii) 30 ml PO Q6H PRN PRN PRN Reason: Gastric Burning Carbidopa/Levodopa (Sinemet) 2 tablet PO TIDAC PIERO Last Admin: 12/07/18 06:35 Dose: 2 tablet Docusate Sodium (Colace) 200 mg PO BID PRN PRN PRN Reason: Constipation Last Admin: 12/06/18 10:22 Dose: 200 mg Famotidine (Pepcid) 20 mg PO BID PIERO Last Admin: 12/06/18 21:36 Dose: 20 mg Heparin Sodium (Porcine) (Heparin Na) 0 unit IV UD PRN; Protocol Hydralazine HCl (Apresoline Iv) 10 mg IV Q4H PRN PRN PRN Reason: SBP > 160 Heparin Sodium/Dextrose () 25,000 units in 250 mls @ 10 mls/hr IV .Q25H PIERO; Protocol Last Admin: 12/06/18 13:24 Dose: 10 mls/hr Potassium Chloride/Dextrose/Sod Cl (Kcl 20meq In D5.45ns 1000ml) 1,000 mls @ 100 mls/hr IV .Q10H PIERO Magnesium Hydroxide (Milk Of Magnesia) 30 ml PO DAILY PRN PRN PRN Reason: Constipation Morphine Sulfate () 2 - 4 mg IV Q3H PRN PRN PRN Reason: Severe Pain (pain scale 6-10) Last Admin: 12/07/18 02:13 Dose: 2 mg Morphine Sulfate () 1 - 2 mg IV Q4H PRN PRN PRN Reason: Moderate Pain (pain scale 4-5) Ondansetron HCl (Zofran) 4 mg IV Q8H PRN PRN PRN Reason: Nausea Last Admin: 12/06/18 23:32 Dose: 4 mg Oxycodone HCl (Oxyir) 5 mg PO Q4H PRN PRN PRN Reason: Moderate Pain (pain scale 4-5) Last Admin: 12/07/18 03:14 Dose: 5 mg Polyethylene Glycol (Miralax) 17 gm PO DAILY PIERO Last Admin: 12/06/18 10:23 Dose: Not Given Prochlorperazine Edisylate (Compazine Iv) 10 mg IV Q6H PRN PRN PRN Reason: Nausea/Vomiting Sodium Chloride () 5 - 15 ml IV UD PRN PRN Reason: SALINE FLUSH Last Admin: 12/06/18 06:55 Dose: 10 ml Medical Necessity - Tobacco Use Smoking Status: Never smoker Tobacco Use: Non-smoker Assessment/Plan All Active Problems Closed right hip fracture (Acute) Venous hypertension, chronic, with ulcer and inflammation (Resolved) Venous ulcer of ankle (Resolved) 1. Right femoral neck fracture due to mechanical fall pain well controlled today. xray of right hip showed mid femoral neck fracture with slight varus deformity and comminution. on morphine prn for pain coumadin on hold orthopedic surgery on board RCRI- 0, indicating 3.9% 30-day risk of , MD or cardiac arrest usually very ambulant at home, METS >4 CXR did show ?pulmonary edema, but BNP was only 19.5 will monitor. Cleared for surgery with moderate risk. 2. 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 Is s/p IVC filter placement coumadin on hold. placed on heparin drip yesterday INR today is 1.4. heparin drip held at 3am today. For surgery today at 3pm. TO discuss with general surgery about resuming coumadin after surgery. 3. Parkinson's disease: On Sinemet. Fall precautions. PT/OT on board. 4. History of prior CVA x2: stable. GI prophylaxis: famotidine DVT prophylaxis: INR is 1.4. Heparin drip on hold for surgery Code Visit Inpatient E&M: 12225 [facility] Hosp L3
[2018-12-07] MEDS: Famotidine 20 MG Tablet PO ×2 (10:21→22:24)
--- NOTE | 2018-12-07 10:28 | PN_ITS ---
Patient Problems: Active and Suspected Problems Closed right hip fracture (Acute) Subjective: Patient seen and examined. He had an uneventful night and has no complaints. Review of systems otherwise negative. Labs and vitals reviewed. Heparin drip currently on hold. He is to go for surgery this afternoon at 3pm. Labs and linh ls reviewed Vitals/I&O's: Vital Signs Temp Pulse Resp BP Pulse Ox 98.1 F 53 L 16 130/66 H 93 12/07/18 10:14 12/07/18 10:14 12/07/18 10:14 12/07/18 10:14 12/07/18 10:14 Oxygen Delivery Method Room Air Weight: 180 lb Body Mass Index (BMI) 23.1 Intake and Output for Last 24 Hours 12/05/18 12/06/18 12/07/18 23:59 23:59 23:59 Intake Total 1205 / 1205 429 / 429 Output Total 1650 / 1650 625 / 625 Balance -445 / -445 -196 / -196 General: Alert, Oriented x3, Cooperative, No apparent distress HEENT: Atraumatic, PERRLA, EOMI, Normocephalic Oral: Moist Mucosa Neck: Supple, No JVD, Negative Carotid Bruits Lungs: Clear to auscultation, Normal air movement, No rhonchi, No wheeze, No rales Cardiovascular: Regular rate, Regular Rhythm, Normal S1, Normal S2, No murmurs Abdomen: Bowel Sounds Present, Soft, Non Tender, Non-Distended, No Hepato- splenomegaly Extremities: No clubbing, No cyanosis, No edema, Capillary Refill Less than 3 Seconds Skin: No rashes, No breakdown Musculoskeletal: - - RLE shortened, externally rotated Lymphatic: No Cervical, Supraclavicular, or Inguinal Adenopathy Neurological: Cranial nerves II-XII grossly intact, Neuro grossly intact Psych/Mental Status: Normal Affect, Appropriate, Alert and oriented to time, place, person, mood and affect Laboratory Results 12/06/18 06:12: Blood Type A POSITIVE, Antibody Screen NEGATIVE 12/06/18 11:28: APTT 36.5 H 12/06/18 19:42: APTT 65.6 H 12/07/18 05:56: WBC 5.4, RBC 4.36 L, Hgb 13.8, Hct 43.4, MCV 99.5 H, MCH 31.7, MCHC 31.8 L, RDW 13.3, RDW Differential 48.2 H, Plt Count 104 L, MPV 10.7, Immature Gran % (Auto) 0.400, Neut % (Auto) 67.3, Lymph % (Auto) 22.3, [place] % (Auto) 8.0, Eos % (Auto) 2.0, Baso % (Auto) 0.0, Absolute Neuts (auto) 3.6, Absolute Lymphs (auto) 1.20, Total Counted Not Reportable 12/07/18 05:56: PT 17.2 H, INR 1.4 12/07/18 05:56: Sodium 140, Potassium 4.2, Chloride 107, Carbon Dioxide 29.0, Anion Gap 4 L, BUN 15, Creatinine 0.87, Estim Creat Clear Calc 93.85, Est GFR (MDRD) Af Amer 112, Est GFR (MDRD) Non-Af 92, BUN/Creatinine Ratio 17.2, Glucose 109 H, Calcium 8.0 L, Total Bilirubin 1.00, Direct Bilirubin 0.24, AST 17, ALT 11 L, Alkaline Phosphatase 65, Total Protein 6.2 L, Albumin 2.9 L, Globulin 3.3 12/07/18 09:00: APTT 34.8 Current Medications Al Hydroxide/Mg Hydroxide (Mylanta Ii) 30 ml PO Q6H PRN PRN PRN Reason: Gastric Burning Carbidopa/Levodopa (Sinemet) 2 tablet PO TIDAC PIERO Last Admin: 12/07/18 06:35 Dose: 2 tablet Docusate Sodium (Colace) 200 mg PO BID PRN PRN PRN Reason: Constipation Last Admin: 12/06/18 10:22 Dose: 200 mg Famotidine (Pepcid) 20 mg PO BID PIERO Last Admin: 12/06/18 21:36 Dose: 20 mg Heparin Sodium (Porcine) (Heparin Na) 0 unit IV UD PRN; Protocol Hydralazine HCl (Apresoline Iv) 10 mg IV Q4H PRN PRN PRN Reason: SBP > 160 Heparin Sodium/Dextrose () 25,000 units in 250 mls @ 10 mls/hr IV .Q25H PIERO; Protocol Last Admin: 12/06/18 13:24 Dose: 10 mls/hr Potassium Chloride/Dextrose/Sod Cl (Kcl 20meq In D5.45ns 1000ml) 1,000 mls @ 100 mls/hr IV .Q10H PIERO Magnesium Hydroxide (Milk Of Magnesia) 30 ml PO DAILY PRN PRN PRN Reason: Constipation Morphine Sulfate () 2 - 4 mg IV Q3H PRN PRN PRN Reason: Severe Pain (pain scale 6-10) Last Admin: 12/07/18 02:13 Dose: 2 mg Morphine Sulfate () 1 - 2 mg IV Q4H PRN PRN PRN Reason: Moderate Pain (pain scale 4-5) Ondansetron HCl (Zofran) 4 mg IV Q8H PRN PRN PRN Reason: Nausea Last Admin: 12/06/18 23:32 Dose: 4 mg Oxycodone HCl (Oxyir) 5 mg PO Q4H PRN PRN PRN Reason: Moderate Pain (pain scale 4-5) Last Admin: 12/07/18 03:14 Dose: 5 mg Polyethylene Glycol (Miralax) 17 gm PO DAILY PIERO Last Admin: 12/06/18 10:23 Dose: Not Given Prochlorperazine Edisylate (Compazine Iv) 10 mg IV Q6H PRN PRN PRN Reason: Nausea/Vomiting Sodium Chloride () 5 - 15 ml IV UD PRN PRN Reason: SALINE FLUSH Last Admin: 12/06/18 06:55 Dose: 10 ml Medical Necessity - Tobacco Use Smoking Status: Never smoker Tobacco Use: Non-smoker Assessment/Plan All Active Problems Closed right hip fracture (Acute) Venous hypertension, chronic, with ulcer and inflammation (Resolved) Venous ulcer of ankle (Resolved) 1. Right femoral neck fracture due to mechanical fall * pain well controlled today. * xray of right hip showed mid femoral neck fracture with slight varus deformity and comminution. * on morphine prn for pain * coumadin on hold * orthopedic surgery on board * RCRI- 0, indicating 3.9% 30-day risk of , MS or cardiac arrest * usually very ambulant at home, METS >4 * CXR did show ?pulmonary edema, but BNP was only 19.5 * will monitor. Cleared for surgery with moderate risk. * 2. 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 Is s/p IVC filter placement * coumadin on hold. placed on heparin drip yesterday * INR today is 1.4. heparin drip held at 3am today. For surgery today at 3pm. TO discuss with general surgery about resuming coumadin after surgery. * 3. Parkinson's disease: On Sinemet. Fall precautions. PT/OT on board. * 4. History of prior CVA x2: stable. GI prophylaxis: famotidine DVT prophylaxis: INR is 1.4. Heparin drip on hold for surgery Code Visit Inpatient E&M: [id number] Subs Hosp L3
[2018-12-07 14:54] LABS: Prealbumin 18.3 mg/dL (20.0-40.0)
[2018-12-07] MEDS: Cefazolin 2 GM in 0.9% Normal Saline 100 ML IV ×2 (15:08→22:43)
[2018-12-07] MEDS: TRANEXAMIC ACID 1,000 MG/10 ML ML 2000 MG OPERA.SITE (16:28)
--- NOTE | 2018-12-07 17:24 | RAD_ITS ---
STUDY: X-RAY - RIGHT HIP REASON FOR EXAM: Male, 68 years old. Right hip replacement TECHNIQUE: 2 views of the hip. COMPARISON: 12/05/2018 FINDINGS: There are postsurgical changes from right hip arthroplasty. The hardware is intact and alignment is satisfactory. There are stable postsurgical changes in the left hip. There is no acute fracture or dislocation. RAD/Hip Min 2 Views (Portable) IMPRESSION: Status post right hip arthroplasty with intact hardware in satisfactory alignment. Electronically Signed: Eliot Galdamez, at 17:39 EDT Tel , Service support ,
--- NOTE | 2018-12-07 17:37 | OP.PCM_ITS ---
Report of Operation Date of Procedure: 12/07/18 Description of Surgical Findings:: Preoperative diagnosis: Right hip femoral neck fracture displaced Postoperative diagnosis: Same Procedure: Right hip hemiarthroplasty Implants: Gladis Accolade II stem size 6 [132] degree neck angle [0] neck length Anesthesia:[General l] EBL: 150 cc Complications: None Condition: Stable to PACU Indication for procedure: This is a 68-year-old male patient with Parkinson's who has had multiple falls and unsteady gait who sustained a right femoral neck fracture after a fall down the stair he was admitted to the hospitalist service he is on Coumadin for factor V Leiden and history of multiple clots it was decided to allow his Coumadin to decline to less than 1.5 he was bridged with heparin. plans for definitive hemiarthroplasty were discussed including risks benefits and alternatives of the procedure were reviewed with the patient including risk of bleeding infection nerve artery tissue damage need for further surgery continue pain postoperative hip precaution restrictions leg length discrepancy and dislocation. Procedure: Patient was met in the preoperative holding area once again the operative extremity was identified by both patient and physician and was marked. Patient was met by anesthesia and brought to the operating room where anesthesia was started . The patient was then positioned in the lateral decubitus position on a well-padded pegboard with an axillary roll. All bony prominences were checked and padded. The patient was prepped and draped in the usual sterile fashion. A timeout was called to ensure the proper patient procedure and extremity were being contemplated. Anatomic landmarks were palpated and marked for a standard posterior lateral approach. A timeout was called to ensure the proper patient procedure and extremity were being contemplated. A 10 blade scalpel was used to make a posterior incision through the skin and subcutaneous tissue. In retractors were used and electrocautery was used to maintain meticulous hemostasis and dissect full-thickness flaps until the gluteal fascia was reached. The gluteal fascia was incised in line with the gluteal fibers. The bursal tissue was then freed from the underside and a Charnley retractor was placed. The fatpad was elevated off of the external rotators with electrocautery and the external rotators were dissected off of the greater trochanter including the piriformis and were tagged with #1 Ethibond for later repair. The joint capsule opened with posterior trapdoor technique. A femoral neck cutting guide was used to marco antonio the neck with a Bovie and an oscillating saw was used to complete the femoral neck cut. the fracture was visualized and with the use of a corkscrew and a skid the femoral head was removed and sized. We then trialed with the matching sizes . Hohmann was placed around the lesser trochanter. A femoral elevator was used. As well as a pointed wide Hohmann around the lesser trochanter and a Hohmann to help retract the gluteus medius. A box chisel was used to remove excess lateral neck followed by a canal finder and a lateralizing reamer. This was followed by sequential broaches attention was made of the version within the canal. Once the final broach was seated we then trialed reduced the hip it was determined that a [132] degree neck angle with a [0] offset was the appropriate size. We then checked stability with shuck testing as well as flexion and interminal rotation then pro ceeded with hip extension and checked leg lengths at the knees and heels. At this point trials were removed. The femoral stem was inserted. We re-trialed and then proceeded to impact the femoral head onto the Brandan taper. We then surgically reduce the hip check stability again and leg lengths and were satisfied. aricept rinse was allowed to sit for 1 minutes while everyone changed their gloves. Thorough irrigation was performed. Followed by closure of the external rotators with #2 FiberWire followed by closure of gluteal fascia with #1 Ethibond. 0 Vicryl fat stitches and 2-0 Vicryl subcutaneous stitches and fredis in the skin. Dressing was applied in the form of Xeroform 4 x 4 ABD Ioband and an abduction pillow was placed. Patient tolerated the procedure well there was no intraoperative complications all counts were correct and the patient was brought back to the PACU in stable condition Type of Anesthesia:: General
[2018-12-07] MEDS: Acetaminophen 500 MG Tablet 1000 MG PO (22:24)
[2018-12-07] MEDS: Lactated Ringers 1,000 ML 100 ML IV (22:26)
[2018-12-08 00:22] VITALS: BMI 23.1
--- NOTE | 2018-12-08 00:37 | CASEMGMT ---
Social Work: Met with patient and in room to discuss D/C plan. Patient and both open and agreeable to inpatient rehab referral. Inpatient rehab Referral made to Princess Welsh RN. Princess will review with Dr. Baptiste (medical economics consultant) and let this SW know of acceptance to [facility]. PLAN: Patient to be admitted to [facility] pending acceptance. JOAQUIM Lopez
[2018-12-08 02:24] VITALS: BP 139/64; PULSE 60; RESP 16; TEMP 37.3; O2SAT 95
[2018-12-08 06:10] LABS: International Normalized Ratio 1.2; Prothrombin Time (Protime)PT. 15.2 SECONDS (11.7-14.9)
[2018-12-08] MEDS: Acetaminophen 500 MG Tablet 1000 MG PO ×3 (06:16→22:27)
[2018-12-08] MEDS: Cefazolin 2 GM in 0.9% Normal Saline 100 ML IV (06:21)
[2018-12-08 06:22] LABS: Absolute Lymphocyte Count 0.97 X10^3/ul (0.83-4.51); Absolute Neutrophil Count 4.3 X10^3/uL (2.0-7.7); Basophil# 0.01 X10^3/uL; Basophil% 0.2 % (0-1); Eosinophil# 0.11 X10^3/uL; Eosinophils% 1.8 % (0-5); Hematocrit 42.1 % (40-54); Hemoglobin 13.5 g/dl (13.0-16.5); Lymphocyte # 0.97 X10^3/ul (4.0); Mean Corp Hgb Conc 32.1 g/gl (32-36); Mean Corpuscular Hgb 31.6 pg (27.0-32.0); Mean Corpuscular Volume 98.6 fL (80-94); Mean Platelet Vol. 10.8 fl (6.2-12.0); Monocyte# 0.63 X10^3/uL; Monocyte% 10.4 % (0-10); Neutrophil # 4.34 X10^3/uL (2.7-7.7); Neutrophil % 71.4 % (47-70); Platelet Count 99 K/mm3 (150-450); RBC Distribution Width CV 13.6 % (11.6-14.6); RBC Distribution Width SD 49.2 fl (35.1-43.9); Red Blood Count 4.27 M/mm3 (4.6-6.2); White Blood Count 6.1 K/mm3 (4.4-11.0)
[2018-12-08] MEDS: Carbidopa/Levodopa 25/100 Tablet PO ×3 (06:22→17:35)
[2018-12-08 06:29] LABS: POSITIVE COUNT NO; POSITIVE DIFFERENTIAL NO; POSITIVE MORPHOLOGY NO
[2018-12-08 06:40] LABS: Anion Gap 6 (5-15); BUN 11 mg/dL (7-18); BUN/Creat Ratio 13.1 RATIO (10-20); Calcium,Total 7.9 mg/dL (8.5-10.1); Chloride 103 mmol/L (98-107); Creatinine, Serum 0.84 mg/dL (0.70-1.30); EST Glomerular Filtration Rate 96 mL/min (>60); Est Glom Filt Rate - Afr Amer 116 mL/min (>60); Glucose 109 mg/dL (74-106); Potassium 4.4 mmol/L (3.5-5.1); Sodium Level 138 mmol/L (136-145)
[2018-12-08 07:04] VITALS: O2SAT 95
[2018-12-08 09:22] VITALS: BP 107/64; PULSE 75; RESP 18; TEMP 36.8; O2SAT 95
[2018-12-08] MEDS: Polyethylene Glycol 3350 17 GM PACKET PO (09:40)
[2018-12-08] MEDS: oxyCODONE 5 MG Tablet PO ×4 (09:40→22:27)
[2018-12-08] MEDS: Famotidine 20 MG Tablet PO ×2 (09:40→22:27)
--- NOTE | 2018-12-08 11:40 | CASEMGMT ---
Social Work: Spoke with Princess Welsh RN who states that patient was approved to come to rehab when medically ready. This SW made patient and aware that patient was approved for inpatient rehab when medically ready. MEGAN Medina aware. PLAN: Patient to be discharged to when medically ready. JOAQUIM Lopez
--- NOTE | 2018-12-08 13:24 | CASEMGMT ---
Social Work Note Physician updated this worker that pt is likely to discharge to [facility] tomorrow. Plan: [facility] once medically cleared Yolis Peck GEOTECHNICAL LABORATORY TECHNICIAN, PHYSICIAN SURGEON
[2018-12-08 14:37] VITALS: BP 140/73; PULSE 79; RESP 18; TEMP 36.5; O2SAT 96
--- NOTE | 2018-12-08 19:30 | PN_ITS ---
Patient Problems: Active and Suspected Problems Closed right hip fracture (Acute) Subjective: Patient was seen and examined today, his was in the room today and I talked with her briefly. He has been approved to go to the rehab unit at [facility]. states that the patient was unable to walk today with physical therapy. states that the patient has a history of Parkinson's disease - Physical Exam General: Alert, Oriented x3, Cooperative, No apparent distress, Well developed HEENT: Atraumatic, PERRLA, EOMI, Normocephalic Oral: Moist Mucosa Neck: Supple, Trachea Midline, Thyroid Normal Size and Texture Lungs: Clear to auscultation, Normal air movement, No rhonchi, No wheeze, No rales Cardiovascular: Regular rate, Regular Rhythm, Normal S1, Normal S2, No murmurs, No Ectopic Activity, PMI Normal, No rub noted Abdomen: Bowel Sounds Present, Soft, Non Tender, Non-Distended Extremities: No edema, Capillary Refill Less than 3 Seconds Skin: No rashes Neurological: Cranial nerves II-XII grossly intact, Neuro grossly intact, Sensor y exam intact to light touch and pain, Coordination normal Psych/Mental Status: Normal Affect, Appropriate, Alert and oriented to time, place, person, mood and affect Vital Signs Temp Pulse Resp BP Pulse Ox 97.7 F L 79 18 140/73 H 96 12/08/18 14:37 12/08/18 14:37 12/08/18 14:37 12/08/18 14:37 12/08/18 14:37 Oxygen Flow Rate (L/min) 2 Oxygen Delivery Method Room Air Weight: 81.647 kg Body Mass Index (BMI) 23.1 Intake and Output for Last 24 Hours 12/06/18 12/07/18 12/08/18 23:59 23:59 23:59 Intake Total 1205 / 1205 1929 / 1929 2463 / 2463 Output Total 1650 / 1650 1125 / 1125 1425 / 1425 Balance -445 / -445 804 / 804 1038 / 1038 Laboratory Tests Past 24 Hrs 12/08/18 12/08/18 12/08/18 05:32 05:32 05:32 WBC 6.1 RBC 4.27 L Hgb 13.5 Hct 42.1 MCV 98.6 H MCH 31.6 MCHC 32.1 RDW 13.6 RDW Differential 49.2 H Plt Count 99 L MPV 10.8 Immature Gran % (Auto) 0.200 Neut % (Auto) 71.4 H Lymph % (Auto) 16.0 L [place] % (Auto) 10.4 H Eos % (Auto) 1.8 Baso % (Auto) 0.2 Absolute Neuts (auto) 4.3 Absolute Lymphs (auto) 0.97 Total Counted Not Reportable PT 15.2 H INR 1.2 Sodium 138 Potassium 4.4 Chloride 103 Carbon Dioxide 29.0 Anion Gap 6 BUN 11 Creatinine 0.84 Estim Creat Clear Calc 97.20 Est GFR (MDRD) Af Amer 116 Est GFR (MDRD) Non-Af 96 BUN/Creatinine Ratio 13.1 Glucose 109 H Calcium 7.9 L Medical Necessity - Tobacco Use Smoking Status: Never smoker Tobacco Use: Non-smoker Assessment/Plan All Active Problems Closed right hip fracture (Acute) Venous hypertension, chronic, with ulcer and inflammation (Resolved) Venous ulcer of ankle (Resolved) #1 right hip femoral neck fracture-postop day #1, continue PT and OT, again the plans are for the patient to go to the rehab unit at [facility] when medically stable #2 Parkinson's disease #3 factor V Leiden mutation-patient's INR today was 1.2, I will begin subcu Lovenox tonight and continue this until the INR is therapeutic. #4 cerebral vascular disease Code Visit Inpatient E&M: [id number] Subs Hosp L2
[2018-12-08 20:30] VITALS: BP 123/70; PULSE 79; RESP 18; TEMP 36.7; O2SAT 94
[2018-12-08] MEDS: Enoxaparin 80 MG/0.8 ML Syringe SC (22:26)
[2018-12-09] MEDS: Morphine 2 MG/ML Syringe IV (02:00)
[2018-12-09 03:24] VITALS: BP 152/76; PULSE 68; RESP 16; TEMP 36.5; O2SAT 95
[2018-12-09] MEDS: Acetaminophen 500 MG Tablet 1000 MG PO ×2 (05:24→13:31)
[2018-12-09] MEDS: oxyCODONE 5 MG Tablet PO (05:26)
[2018-12-09 06:02] LABS: Hematocrit 41.4 % (40-54); Hemoglobin 13.3 g/dl (13.0-16.5); Mean Corp Hgb Conc 32.1 g/gl (32-36); Mean Corpuscular Hgb 31.7 pg (27.0-32.0); Mean Corpuscular Volume 98.8 fL (80-94); Mean Platelet Vol. 10.6 fl (6.2-12.0); Platelet Count 109 K/mm3 (150-450); RBC Distribution Width CV 13.5 % (11.6-14.6); RBC Distribution Width SD 48.9 fl (35.1-43.9); Red Blood Count 4.19 M/mm3 (4.6-6.2); White Blood Count 8.1 K/mm3 (4.4-11.0)
[2018-12-09 06:08] LABS: International Normalized Ratio 1.5
[2018-12-09 06:17] LABS: Scan Indicated on CBC? Y/N NO
[2018-12-09] MEDS: Carbidopa/Levodopa 25/100 Tablet PO ×2 (06:37→10:33)
[2018-12-09 07:37] VITALS: BP 129/65; PULSE 73; RESP 16; TEMP 37.2; O2SAT 96
[2018-12-09] MEDS: Polyethylene Glycol 3350 17 GM PACKET PO (07:57)
[2018-12-09] MEDS: Enoxaparin 80 MG/0.8 ML Syringe SC (07:57)
[2018-12-09] MEDS: Famotidine 20 MG Tablet PO (07:58)
[2018-12-09] MEDS: Magnesium Hydroxide 30 ML UDC PO (08:00)
[2018-12-09] MEDS: Docusate Sodium 100 MG Capsule 200 MG PO (08:00)
[2018-12-09 08:04] VITALS: BP 117/59; PULSE 74; RESP 16; TEMP 36.4; O2SAT 92
[2018-12-09 08:42] VITALS: O2SAT 96
--- NOTE | 2018-12-09 11:06 | DCINST_ITS ---
- Discharge Diagnoses Current Active Problems: Current Active and Chronic Problems CVA (cerebral vascular accident) (Chronic) History of DVT (deep vein thrombosis) (Chronic) Factor V Leiden mutation (Chronic) Closed right hip fracture (Acute) You will use the following diet at home:: No restrictions Your food should be the consistency of: Regular Your liquids should be the consistency of: Regular/Thin Discharge Activity: Use Walker Weight Bearing Status: Weight bearing as tolerated Additional Instructions: SUSAN OUT IN TWO WEEKS. HIP PRECAUTIONS Allergies/Adverse Reactions: Allergies No Known Allergies Allergy (Verified 08/28/17 10:21) Medications to take at Discharge Carbidopa/Levodopa [Carbidopa-Levodopa 25-100 Tab] 2 each PO TID 12/05/18 Warfarin Sodium [Coumadin] 2 tab PO DAILY 12/05/18 Acetaminophen [Tylenol] 1,000 mg PO Q8 tablet 12/09/18 Carbidopa/Levodopa 25/100 [Sinemet 25/100] 2 tablet PO TIDAC tablet 12/09/18 Docusate Sodium [Colace] 200 mg PO BID PRN PRN capsule 12/09/18 Enoxaparin [Lovenox] 80 mg SC Q12@0600,1800 syringe 12/09/18 Oxycodone [Oxyir] 5 mg PO Q4H PRN PRN 3 Days #10 tablet 12/09/18 Polyethylene Glycol 3350 [Miralax] 17 gm PO DAILY packet 12/09/18 The following prescriptions were given: Oxycodone [Oxyir] 5 mg PO Q4H PRN PRN 3 Days #10 tablet PRN Reason: Mod-Severe Pain (4-10/10) Primary Care Physician: Joss Heredia MD [Primary Care Provider] - Test Results: Test results from this visit will be discussed in further detail at your follow- up appointment, if applicable. Please Follow Up With: Jeremiah Mcduffie DO When: IN FOUR WEEKS
--- NOTE | 2018-12-09 11:08 | PCM.PN.ORT ---
Patient Problems: Active and Suspected Problems Closed right hip fracture (Acute) Subjective: Complaint of pain difficulty with ambulation secondary to Parkinson's and recent surgery. No chest pain shortness of breath - Physical Exam General: Alert, Cooperative, No apparent distress Extremities: - - Incision looks good fredis intact well approximated no significant hematoma compartments soft neurovascular intact Vital Signs Temp Pulse Resp BP Pulse Ox 97.6 F L 74 16 117/59 L 96 12/09/18 08:04 12/09/18 08:04 12/09/18 08:04 12/09/18 08:04 12/09/18 08:42 Oxygen Flow Rate (L/min) 2 Oxygen Delivery Method Room Air Weight: 180 lb Body Mass Index (BMI) 23.1 Intake and Output for Last 24 Hours 12/07/18 12/08/18 12/09/18 23:59 23:59 23:59 Intake Total 1929 / 1929 2463 / 2463 550 / 550 Output Total 1125 / 1125 1425 / 1425 600 / 600 Balance 804 / 804 1038 / 1038 -50 / -50 Laboratory Tests Past 24 Hrs 12/09/18 12/09/18 05:35 05:35 WBC 8.1 RBC 4.19 L Hgb 13.3 Hct 41.4 MCV 98.8 H MCH 31.7 MCHC 32.1 RDW 13.5 RDW Differential 48.9 H Plt Count 109 L MPV 10.6 PT 18.0 H INR 1.5 Medical Necessity - Tobacco Use Smoking Status: Never smoker Tobacco Use: Non-smoker Assessment/Plan All Active Problems Closed right hip fracture (Acute) Venous hypertension, chronic, with ulcer and inflammation (Resolved) Venous ulcer of ankle (Resolved) Continue anticoagulation physical therapy occupational therapy weightbearing as tolerated hip precautions [place] out in 2 weeks Clean incision daily with Betadine and change dressing daily at this point May begin showering tomorrow Follow-up 4 weeks
--- NOTE | 2018-12-09 11:15 | CASEMGMT ---
Social Work Note Physician is discharging pt to [facility] today. SW placed a call to Princess with [facility] and informed her that pt will be discharged to [facility] today. Plan: [facility] today Yolis Peck MSW, RESEARCH PROFESSIONAL
[2018-12-09 12:43] VITALS: BP 128/79; PULSE 69; RESP 16; TEMP 36.6; O2SAT 93
[2018-12-09 13:28] VITALS: BP 123/66; PULSE 70; RESP 16; TEMP 36.6; O2SAT 93
--- NOTE | 2018-12-09 14:29 | NURSING ---
student nurses charting reviewed and used for educational learning purposes. keli
--- NOTE | 2018-12-09 18:37 | PCM.DC.SUM ---
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 Workup in the emergency room included an x-ray of the right hip which showed a femoral neck fracture, patient's INR was 2, and patient's chest x-ray was read out as showing mild to moderate edema although this examiner did not feel the patient had congestive heart failure. Patient was admitted to [place] [address], he was seen in consultation by orthopedic surgery, he was seen by PT and OT. Patient underwent a right hip hemiarthroplasty and had no complications postop. Patient was felt to be appropriate for inpatient rehab services at [facility] rehab unit and patient was accepted at [facility] rehab unit. On 12/09/18, patient was seen and examined and felt to be in stable condition for transfer to the rehab unit at [facility]: On examination he appeared in good health and spirits. Vital signs as documented. Skin warm and dry and without overt rashes. Neck without JVD. Lungs clear. Heart exam notable for regular rhythm, normal sounds and absence of murmurs, rubs or gallops. Abdomen unremarkable and without evidence of organomegaly, masses, or abdominal aortic enlargement. Extremities nonedematous. Neuro: Cranial nerves II through XII are grossly intact, no focal motor deficits were noted, sensation to light touch and pinprick intact. Psych: Patient is alert and oriented x3, he does not appear anxious or depressed - Physical Exam Vital Signs Temp Pulse Resp BP Pulse Ox 98 F 70 16 123/66 H 93 12/09/18 13:28 12/09/18 13:28 12/09/18 13:28 12/09/18 13:28 12/09/18 13:28 Oxygen Flow Rate (L/min) 2 Oxygen Delivery Method Room Air Weight: 81.647 kg Body Mass Index (BMI) 23.1 Intake and Output for Last 24 Hours 12/07/18 12/08/18 12/09/18 23:59 23:59 23:59 Intake Total 1929 / 1929 2463 / 2463 950 / 950 Output Total 1125 / 1125 1425 / 1425 800 / 800 Balance 804 / 804 1038 / 1038 150 / 150 Laboratory Tests Past 24 Hrs 12/09/18 12/09/18 05:35 05:35 WBC 8.1 RBC 4.19 L Hgb 13.3 Hct 41.4 MCV 98.8 H MCH 31.7 MCHC 32.1 RDW 13.5 RDW Differential 48.9 H Plt Count 109 L MPV 10.6 PT 18.0 H INR 1.5 Discharge Activity: Use Walker Weight Bearing Status: Weight bearing as tolerated Home Medications: Medications to take at Discharge Carbidopa/Levodopa [Carbidopa-Levodopa 25-100 Tab] 2 each PO TID 12/05/18 Warfarin Sodium [Coumadin] 2 tab PO DAILY 12/05/18 Acetaminophen [Tylenol] 1,000 mg PO Q8 12/09/18 Carbidopa/Levodopa 25/100 [Sinemet 25/100] 2 tablet PO TIDAC 12/09/18 Oxycodone [Oxyir] 5 mg PO Q4H PRN PRN 3 Days #10 tablet 12/09/18 Polyethylene Glycol 3350 [Miralax] 17 gm PO DAILY 12/09/18 Following Prescrptions Were Given to Patient: Oxycodone [Oxyir] 5 mg PO Q4H PRN PRN 3 Days #10 tablet PRN Reason: Mod-Severe Pain (4-07/01) Primary Care Physician: Joss Heredia MD [Primary Care Provider] - Please Follow Up With: Jeremiah Mcduffie DO When: IN FOUR WEEKS Disposition: Inpt Rehab Unit/Facility Minutes spent on discharge:: 32 Patient Condition:: Stable Medical Necessity - Tobacco Use Smoking Status: Never smoker Tobacco Use: Non-smoker Meaningful Use Info Meaningful Use Diagnoses (Choose all that apply): None applicable Code Visit Inpatient E&M: 76591 Disch Hosp
--- NOTE | 2018-12-09 18:47 | DS.PCM_ITS ---
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 Workup in the emergency room included an x-ray of the right hip which showed a femoral neck fracture, patient's INR was 2, and patient's chest x-ray was read out as showing mild to moderate edema although this examiner did not feel the patient had congestive heart failure. Patient was admitted to [place] [address], he was seen in consultation by orthopedic surgery, he was seen by PT and OT. Patient underwent a right hip hemiarthroplasty and had no complications postop. Patient was felt to be appropriate for inpatient rehab services at [facility] rehab unit and patient was accepted at [facility] rehab unit. On 12/09/18, patient was seen and examined and felt to be in stable condition for transfer to the rehab unit at [facility]: On examination he appeared in good health and spirits. Vital signs as documented. Skin warm and dry and without overt rashes. Neck without JVD. Lungs clear. Heart exam notable for regular rhythm, normal sounds and absence of murmurs, rubs or gallops. Abdomen unremarkable and without evidence of organomegaly, masses, or abdominal aortic enlargement. Extremities nonedematous. Neuro: Cranial nerves II through XII are grossly intact, no focal motor deficits were noted, sensation to light touch and pinprick intact. Psych: Patient is alert and oriented x3, he does not appear anxious or depressed - Physical Exam Vital Signs Temp Pulse Resp BP Pulse Ox 98 F 70 16 123/66 H 93 12/09/18 13:28 12/09/18 13:28 12/09/18 13:28 12/09/18 13:28 12/09/18 13:28 Oxygen Flow Rate (L/min) 2 Oxygen Delivery Method Room Air Weight: 81.647 kg Body Mass Index (BMI) 23.1 Intake and Output for Last 24 Hours 12/07/18 12/08/18 12/09/18 23:59 23:59 23:59 Intake Total 1929 / 1929 2463 / 2463 950 / 950 Output Total 1125 / 1125 1425 / 1425 800 / 800 Balance 804 / 804 1038 / 1038 150 / 150 Laboratory Tests Past 24 Hrs 12/09/18 12/09/18 05:35 05:35 WBC 8.1 RBC 4.19 L Hgb 13.3 Hct 41.4 MCV 98.8 H MCH 31.7 MCHC 32.1 RDW 13.5 RDW Differential 48.9 H Plt Count 109 L MPV 10.6 PT 18.0 H INR 1.5 Discharge Activity: Use Walker Weight Bearing Status: Weight bearing as tolerated Home Medications: Medications to take at Discharge Carbidopa/Levodopa [Carbidopa-Levodopa 25-100 Tab] 2 each PO TID 12/05/18 Warfarin Sodium [Coumadin] 2 tab PO DAILY 12/05/18 Acetaminophen [Tylenol] 1,000 mg PO Q8 12/09/18 Carbidopa/Levodopa 25/100 [Sinemet 25/100] 2 tablet PO TIDAC 12/09/18 Oxycodone [Oxyir] 5 mg PO Q4H PRN PRN 3 Days #10 tablet 12/09/18 Polyethylene Glycol 3350 [Miralax] 17 gm PO DAILY 12/09/18 Following Prescrptions Were Given to Patient: Oxycodone [Oxyir] 5 mg PO Q4H PRN PRN 3 Days #10 tablet PRN Reason: Mod-Severe Pain (4-07/01) Primary Care Physician: Joss Heredia MD [Primary Care Provider] - Please Follow Up With: Jeremiah Mcduffie DO When: IN FOUR WEEKS Disposition: Inpt Rehab Unit/Facility Minutes spent on discharge:: 32 Patient Condition:: Stable Medical Necessity - Tobacco Use Smoking Status: Never smoker Tobacco Use: Non-smoker Meaningful Use Info Meaningful Use Diagnoses (Choose all that apply): None applicable Code Visit Inpatient E&M: 97099 Disch Hosp
== END 2018-12-09 14:43 | DRG 470 ==
LOC: ED 23:05 → MS3 23:34
PROVIDERS: Anesthesiology; Orthopaedic Surgery; Student in an Organized Health Care Education/Training Program; Surgery; Admitting Provider Family Medicine; Emergency Provider Emergency Medicine; Family Provider Family Medicine; PCP Family Medicine; Visit Provider Internal Medicine
PROC: 0SRR0JA Replacement of Right Hip Joint, Femoral Surface with Synthetic Substitute, Uncemented, Open Approach (ICD-10-PCS; CPT 27125; principal; 2018-12-07 14:40)
DX: S72.001A Fracture of unspecified part of neck of right femur, initial encounter for closed fracture (principal); D68.51 Activated protein C resistance; I87.031 Postthrombotic syndrome with ulcer and inflammation of right lower extremity; L97.819 Non-pressure chronic ulcer of other part of right lower leg with unspecified severity; I83.218 Varicose veins of right lower extremity with both ulcer of other part of lower extremity and inflammation; W10.8XXA Fall (on) (from) other stairs and steps, initial encounter; Y93.89 Activity, other specified; Y92.008 Other place in unspecified non-institutional (private) residence as the place of occurrence of the external cause; G20 Parkinson's disease; I69.311 Memory deficit following cerebral infarction; I69.312 Visuospatial deficit and spatial neglect following cerebral infarction; Z86.718 Personal history of other venous thrombosis and embolism; Z79.01 Long term (current) use of anticoagulants; Z79.899 Other long term (current) drug therapy
CPT/HCPCS: 36415; 71045; 72170; 73502; 73552; 80048; 80076; 82040; 83735; 83880; 84134; 84443; 85025; 85027; 85610; 85730; 86850; 86900; 93005; 97162; 97166; 99251; 99282; C1713; C1776; J7120; A4216; G0463; J2405

== ENCOUNTER 2018-12-09 14:50 | Inpatient (IN) | payer MEDICARE, OTHER, SELFPAY ==
[2018-12-07 14:40] VITALS: BMI 23.1
[2018-12-09 15:27] VITALS: BP 156/85; PULSE 76; RESP 18; TEMP 36.7; O2SAT 94; BMI 23.6; BMI 23.7
[2018-12-09] MEDS: Enoxaparin 80 MG/0.8 ML Syringe SC (17:26)
[2018-12-09 19:04] VITALS: BP 121/63; PULSE 78; RESP 16; TEMP 36.6; O2SAT 94
[2018-12-09 20:50] VITALS: PULSE 78; RESP 16
[2018-12-09] MEDS: Senna/Docusate Sodium 1 Tablet 2 TABLET PO (20:57)
[2018-12-09 21:35] VITALS: BMI 23.6
[2018-12-10] MEDS: Enoxaparin 80 MG/0.8 ML Syringe SC ×2 (06:36→17:35)
[2018-12-10 06:40] LABS: Hematocrit 43.9 % (40-54); Hemoglobin 13.9 g/dl (13.0-16.5); Mean Corp Hgb Conc 31.7 g/gl (32-36); Mean Corpuscular Hgb 31.5 pg (27.0-32.0); Mean Corpuscular Volume 99.5 fL (80-94); Mean Platelet Vol. 10.4 fl (6.2-12.0); Platelet Count 118 K/mm3 (150-450); RBC Distribution Width CV 13.1 % (11.6-14.6); RBC Distribution Width SD 47.6 fl (35.1-43.9); Red Blood Count 4.41 M/mm3 (4.6-6.2); White Blood Count 6.9 K/mm3 (4.4-11.0)
[2018-12-10 06:41] LABS: International Normalized Ratio 1.4; Prothrombin Time (Protime)PT. 17.1 SECONDS (11.7-14.9); Scan Indicated on CBC? Y/N NO
[2018-12-10 06:53] LABS: Anion Gap 5 (5-15); BUN 15 mg/dL (7-18); BUN/Creat Ratio 19.5 RATIO (10-20); Calcium,Total 8.6 mg/dL (8.5-10.1); Chloride 104 mmol/L (98-107); Creatinine, Serum 0.77 mg/dL (0.70-1.30); EST Glomerular Filtration Rate 106 mL/min (>60); Est Glom Filt Rate - Afr Amer 129 mL/min (>60); Glucose 103 mg/dL (74-106); Potassium 4.6 mmol/L (3.5-5.1); Sodium Level 138 mmol/L (136-145)
[2018-12-10 07:09] VITALS: BP 150/76; PULSE 79; RESP 18; TEMP 36.7; O2SAT 93
[2018-12-10] MEDS: oxyCODONE 5 MG Tablet PO ×2 (08:17→17:38)
[2018-12-10] MEDS: Senna/Docusate Sodium 1 Tablet 2 TABLET PO ×2 (08:17→21:01)
[2018-12-10] MEDS: Polyethylene Glycol 3350 17 GM PACKET PO (08:50)
--- NOTE | 2018-12-10 10:22 | PCM.HP.STD ---
History of Present Illness Date of Admission: 12/10/18 Chief Complaint: debility The patient is a 68 year old M admitted to the rehab unit for debility after undergoing a hip fracture and open reduction and internal fixation performed by Dr. duncan on 12/07/18. He states that his postoperative course was uneventful. He apparently fell because he was descending his basement steps and missed the last step he says was dark as well, despite his Parkinson's he says he does not have any history of falls otherwise. He lives in a one-story house with 2 steps up. He lives with his who is healthy and able to help. He is treated for his parkinsonism by Dr. Cortes in [place] and there was some recent medication changes which apparently have been changed again. Does not want any further changes. He says his pain is controlled. He has had some trouble with emptying his bladder and had some enuresis last night as result. No other complaints. All of therapy is cheondoism of prior level of functional independence. per dc summary:The patient is a 68 year old M who was seen in the emergency room at [facility] with a chief complaint of right hip pain after falling at home. Workup in the emergency room included an x-ray of the right hip which showed a femoral neck fracture, patient's INR was 2, and patient's chest x-ray was read out as showing mild to moderate edema although this examiner did not feel the patient had congestive heart failure. Patient was admitted to [place] [address], he was seen in consultation by orthopedic surgery, he was seen by PT and OT. Patient underwent a right hip hemiarthroplasty and had no complications postop. Patient was felt to be appropriate for inpatient rehab services at [facility] rehab unit and patient was accepted at [facility] rehab unit. On 12/09/18, patient was seen and examined and felt to be in stable condition for transfer to the rehab unit at [facility]: On examination he appeared in good health and spirits. Vital signs as documented. Skin warm and dry and without overt rashes. Neck without JVD. Lungs clear. Heart exam notable for regular rhythm, normal sounds and absence of murmurs, rubs or gallops. Abdomen unremarkable and without evidence of organomegaly, masses, or abdominal aortic enlargement. Extremities nonedematous. Neuro: Cranial nerves II through XII are grossly intact, no focal motor deficits were noted, sensation to light touch and pinprick intact. 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) Chronic venous insufficiency (Chronic) Venous ulcer of right lower extremity with varicose veins (Chronic) History of ulcer of lower extremity (Chronic) Postphlebitic syndrome with inflammation (Chronic) Ulcer, pressure (Chronic) Allergies No Known Allergies Allergy (Verified 12/09/18 15:46) Home Medications: Ambulatory Orders Medication Instructions Recorded Carbidopa/Levodopa 2 each PO TID 12/05/18 [Carbidopa-Levodopa 25-100 Tab] Warfarin Sodium [Coumadin] 2 tab PO DAILY 12/05/18 Acetaminophen [Tylenol] 1,000 mg PO Q8 12/09/18 Carbidopa/Levodopa 25/100 [Sinemet 2 tablet PO TIDAC 12/09/18 25/100] Oxycodone [Oxyir] 5 mg PO Q4H PRN PRN 3 Days #10 12/09/18 tablet Polyethylene Glycol 3350 [Miralax] 17 gm PO DAILY 12/09/18 Surgical History: - - Patient underwent endovenous laser ablation of the right great saphenous vein, the right small saphenous vein, the right accessory saphenous vein on May 04, 2013, right hand surgery, left hip fracture surgery, right total knee replacement, IVC filter placement. Psychiatric History: No pertinent psych hx Smoking Status: Never smoker Tobacco Use: Non-smoker - *Family History Paternal History Items: No pertinent history - Patient father with no market history, at age 92, no diabetes, heart disease, cancer history. Maternal History Items: Heart Disease - Patient at age 72 secondary to complications from [place], coronary disease. Review of Systems Constitutional: Denies: Chills, Fever, Weight Change HEENT: Denies: Head Aches, Sinus Congestion, Sinus Drainage Cardiovascular: Denies: Chest Pain, Palpitations Respiratory: Denies: Cough, Shortness of breath at rest, Sputum production Gastrointestinal: Denies: Abdominal Pain, Nausea, Vomiting Genitourinary: Reports: Frequency Musculoskeletal: Reports: Joint Pain - Right hip Skin: Denies: Rash, Wounds Neurological: Reports: Balance problems Psychiatric: Denies: Anxiety, Depression, Homicidal Ideations, Suicidal Ideations Hematologic/ Lymphatic: Denies: Easy Bruising, Easy Bleeding VTE Information - Inpt Only VTE Present on Admission: Yes VTE Pharm Prophylaxis ordered?: Yes Objective: On examination he is awake and alert, oriented x3 He has mild bradykinesia, no tremor There is bilateral cogwheeling Heart is regular Lungs are clear No calf pain He has bilateral severely high arches with hammertoe deformities and decreased proprioception in his toes bilaterally Deep tendon reflexes are 1+ symmetrically - Physical Exam Vital Signs Temp Pulse Resp BP Pulse Ox 36.7 C 79 18 150/76 H 93 12/10/18 07:09 12/10/18 07:09 12/10/18 07:09 12/10/18 07:09 12/10/18 07:09 Oxygen Delivery Method Room Air Weight: 83.6 kg Body Mass Index (BMI) 23.6 Intake and Output for Last 24 Hours 12/08/18 12/09/18 12/10/18 23:59 23:59 23:59 Output Total 720 / 720 Balance -720 / -720 Laboratory Tests Past 24 Hrs 12/10/18 12/10/18 12/10/18 06:20 06:20 06:20 WBC 6.9 RBC 4.41 L Hgb 13.9 Hct 43.9 MCV 99.5 H MCH 31.5 MCHC 31.7 L RDW 13.1 RDW Differential 47.6 H Plt Count 118 L MPV 10.4 PT 17.1 H INR 1.4 Sodium 138 Potassium 4.6 Chloride 104 Carbon Dioxide 29.0 Anion Gap 5 BUN 15 Creatinine 0.77 Estim Creat Clear Calc 82.20 Est GFR (MDRD) Af Amer 129 Est GFR (MDRD) Non-Af 106 BUN/Creatinine Ratio 19.5 Glucose 103 Calcium 8.6 Current Medications Acetaminophen 1,000 mg 12/10/18 14:00 Tylenol PO Q8 PIERO Bisacodyl 10 mg 12/09/18 15:40 Dulcolax RECTAL .PRN X 1 PRN Constipation Carbidopa/Levodopa 2 tablet 12/10/18 11:00 12/10/18 10:55 Sinemet PO 2 tablet TIDAC PIERO Administration Enoxaparin Sodium 80 mg 12/09/18 18:00 12/10/18 06:36 Lovenox SC 80 mg 0600,1800 PIERO Administration Magnesium Hydroxide 30 ml 12/09/18 15:40 Milk Of Magnesia PO .PRN X 1 PRN Constipation Oxycodone HCl 5 mg 12/10/18 07:59 12/10/18 08:17 Oxyir PO 5 mg Q4H PRN PRN Administration MOD-SEVERE PAIN (4-10/10) Polyethylene Glycol 17 gm 12/10/18 10:00 12/10/18 08:50 Miralax PO 17 gm DAILY PIERO Administration Senna/Docusate Sodium 2 tablet 12/09/18 22:00 12/10/18 08:17 Senokot-S, Tara-Colace PO 2 tablet BID PIERO Administration Warfarin Sodium 8 mg 12/10/18 17:00 Coumadin (Pbkc) PO DAILY@1700 ON LICENSE OF [facility] Assessment/Plan All Active Problems Closed right hip fracture (Acute) Venous hypertension, chronic, with ulcer and inflammation (Resolved) Venous ulcer of ankle (Resolved) Impression: Debility status post open reduction and internal fixation of a right hip fracture performed 12/07/[address] Duncan at [facility]. Postoperative course was uneventful. Complicated by history of parkinsonism. Goal of rehab is cheondoism of previous level of functional independence. Plan: Physical therapy for gait and balance Occupational Therapy for ADLs PRN analgesics Bowel protocol Parkinsonism: Continue carbidopa levodopa. Sees Dr. 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 No specific treatment although he is made aware of this that it may further impair his balance.
--- NOTE | 2018-12-10 10:26 | HP.PCM_ITS ---
History of Present Illness Date of Admission: 12/10/18 Chief Complaint: debility The patient is a 68 year old M admitted to the rehab unit for debility after undergoing a hip fracture and open reduction and internal fixation performed by Dr. duncan on 12/07/18. He states that his postoperative course was uneventful. He apparently fell because he was descending his basement steps and missed the last step he says was dark as well, despite his Parkinson's he says he does not have any history of falls otherwise. He lives in a one-story house with 2 steps up. He lives with his who is healthy and able to help. He is treated for his parkinsonism by Dr. Cortes in [place] and there was some recent medication changes which apparently have been changed again. Does not want any further changes. He says his pain is controlled. He has had some trouble with emptying his bladder and had some enuresis last night as result. No other complaints. All of therapy is caodaism of prior level of functional independence. per dc summary:The patient is a 68 year old M who was seen in the emergency baldev m at [facility] with a chief complaint of right hip pain after falling at home. Workup in the emergency room included an x-ray of the right hip which showed a femoral neck fracture, patient's INR was 2, and patient's chest x-ray was read out as showing mild to moderate edema although this examiner did not feel the patient had congestive heart failure. Patient was admitted to [place] [address], he was seen in consultation by orthopedic surgery, he was seen by PT and OT. Patient underwent a right hip hemiarthroplasty and had no complications postop. Patient was felt to be appropriate for inpatient rehab services at [facility] rehab unit and patient was accepted at [facility] rehab unit. On 12/09/18, patient was seen and examined and felt to be in stable condition for transfer to the rehab unit at [facility]: On examination he appeared in good health and spirits. Vital signs as documented. Skin warm and dry and without overt rashes. Neck without JVD. Lungs clear. Heart exam notable for regular rhythm, normal sounds and absence of murmurs, rubs or gallops. Abdomen unremarkable and without evidence of organomegaly, masses, or abdominal aortic enlargement. Extremities nonedematous. Neuro: Cranial nerves II through XII are grossly intact, no focal motor deficits were noted, sensation to light touch and pinprick intact. 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) Chronic venous insufficiency (Chronic) Venous ulcer of right lower extremity with varicose veins (Chronic) History of ulcer of lower extremity (Chronic) Postphlebitic syndrome with inflammation (Chronic) Ulcer, pressure (Chronic) Allergies No Known Allergies Allergy (Verified 12/09/18 15:46) Home Medications: Ambulatory Orders Medication Instructions Recorded Carbidopa/Levodopa 2 each PO TID 12/05/18 [Carbidopa-Levodopa 25-100 Tab] Warfarin Sodium [Coumadin] 2 tab PO DAILY 12/05/18 Acetaminophen [Tylenol] 1,000 mg PO Q8 12/09/18 Carbidopa/Levodopa 25/100 [Sinemet 2 tablet PO TIDAC 12/09/18 25/100] Oxycodone [Oxyir] 5 mg PO Q4H PRN PRN 3 Days #10 12/09/18 tablet Polyethylene Glycol 3350 [Miralax] 17 gm PO DAILY 12/09/18 Surgical History: - - Patient underwent endovenous laser ablation of the right great saphenous vein, the right small saphenous vein, the right accessory saphenous vein on May 04, 2013, right hand surgery, left hip fracture surgery, right total knee replacement, IVC filter placement. Psychiatric History: No pertinent psych hx Smoking Status: Never smoker Tobacco Use: Non-smoker - *Family History Paternal History Items: No pertinent history - Patient father with no market history, at age 92, no diabetes, heart disease, cancer history. Maternal History Items: Heart Disease - Patient at age 72 secondary to complications from RI, coronary disease. Review of Systems Constitutional: Denies: Chills, Fever, Weight Change HEENT: Denies: Head Aches, Sinus Congestion, Sinus Drainage Cardiovascular: Denies: Chest Pain, Palpitations Respiratory: Denies: Cough, Shortness of breath at rest, Sputum production Gastrointestinal: Denies: Abdominal Pain, Nausea, Vomiting Genitourinary: Reports: Frequency Musculoskeletal: Reports: Joint Pain - Right hip Skin: Denies: Rash, Wounds Neurological: Reports: Balance problems Psychiatric: Denies: Anxiety, Depression, Homicidal Ideations, Suicidal Ideations Hematologic/ Lymphatic: Denies: Easy Bruising, Easy Bleeding VTE Information - Inpt Only VTE Present on Admission: Yes VTE Pharm Prophylaxis ordered?: Yes Objective: On examination he is awake and alert, oriented x3 He has mild bradykinesia, no tremor There is bilateral cogwheeling Heart is regular Lungs are clear No calf pain He has bilateral severely high arches with hammertoe deformities and decreased proprioception in his toes bilaterally Deep tendon reflexes are 1+ symmetrically - Physical Exam Vital Signs Temp Pulse Resp BP Pulse Ox 36.7 C 79 18 150/76 H 93 12/10/18 07:09 12/10/18 07:09 12/10/18 07:09 12/10/18 07:09 12/10/18 07:09 Oxygen Delivery Method Room Air Weight: 83.6 kg Body Mass Index (BMI) 23.6 Intake and Output for Last 24 Hours 12/08/18 12/09/18 12/10/18 23:59 23:59 23:59 Output Total 720 / 720 Balance -720 / -720 Laboratory Tests Past 24 Hrs 12/10/18 12/10/18 12/10/18 06:20 06:20 06:20 WBC 6.9 RBC 4.41 L Hgb 13.9 Hct 43.9 MCV 99.5 H MCH 31.5 MCHC 31.7 L RDW 13.1 RDW Differential 47.6 H Plt Count 118 L MPV 10.4 PT 17.1 H INR 1.4 Sodium 138 Potassium 4.6 Chloride 104 Carbon Dioxide 29.0 Anion Gap 5 BUN 15 Creatinine 0.77 Estim Creat Clear Calc 82.20 Est GFR (MDRD) Af Amer 129 Est GFR (MDRD) Non-Af 106 BUN/Creatinine Ratio 19.5 Glucose 103 Calcium 8.6 Current Medications Acetaminophen 1,000 mg 12/10/18 14:00 Tylenol PO Q8 PIERO Bisacodyl 10 mg 12/09/18 15:40 Dulcolax RECTAL .PRN X 1 PRN Constipation Carbidopa/Levodopa 2 tablet 12/10/18 11:00 12/10/18 10:55 Sinemet PO 2 tablet TIDAC PIERO Administration Enoxaparin Sodium 80 mg 12/09/18 18:00 12/10/18 06:36 Lovenox SC 80 mg 0600,1800 PIERO Administration Magnesium Hydroxide 30 ml 12/09/18 15:40 Milk Of Magnesia PO .PRN X 1 PRN Constipation Oxycodone HCl 5 mg 12/10/18 07:59 12/10/18 08:17 Oxyir PO 5 mg Q4H PRN PRN Administration MOD-SEVERE PAIN (4-10/10) Polyethylene Glycol 17 gm 12/10/18 10:00 12/10/18 08:50 Miralax PO 17 gm DAILY PIERO Administration Senna/Docusate Sodium 2 tablet 12/09/18 22:00 12/10/18 08:17 Senokot-S, Tara-Colace PO 2 tablet BID PIERO Administration Warfarin Sodium 8 mg 12/10/18 17:00 Coumadin (Pbkc) PO DAILY@1700 [facility] Assessment/Plan All Active Problems Closed right hip fracture (Acute) Venous hypertension, chronic, with ulcer and inflammation (Resolved) Venous ulcer of ankle (Resolved) Impression: Debility status post open reduction and internal fixation of a right hip fracture performed 12/07/[address] Duncan at [facility]. Postoperative course was uneventful. Complicated by history of parkinsonism. Goal of rehab is caodaism of previous level of functional independence. Plan: Physical therapy for gait and balance Occupational Therapy for ADLs PRN analgesics Bowel protocol Parkinsonism: Continue carbidopa levodopa. Sees Dr. 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 No specific treatment although he is made aware of this that it may further impair his balance.
[2018-12-10] MEDS: Carbidopa/Levodopa 25/100 Tablet PO ×2 (10:55→15:58)
[2018-12-10] MEDS: Acetaminophen 500 MG Tablet 1000 MG PO ×2 (13:02→21:01)
[2018-12-10 13:47] VITALS: BMI 23.6
[2018-12-10] MEDS: Bisacodyl 10 MG Suppository RECTAL (16:00)
[2018-12-10] MEDS: Tamsulosin HCl 0.4 MG Capsule PO (17:35)
--- NOTE | 2018-12-10 18:17 | PN_ITS ---
Subjective: Patient was seen and examined today, he was admitted yesterday to the rehab unit at [facility] for rehab after sustaining a right femoral neck fracture from a fall and undergoing ORIF. Patient underwent a right hip hemiarthroplasty on 12/07/18 at [facility]. Patient's medical problems include Parkinson's disease, factor V Leiden mutation, chronic Coumadin usage, and history of cerebrovascular disease. - Physical Exam General: Alert, Cooperative, No apparent distress, Well developed, Lethargic HEENT: Atraumatic, PERRLA, EOMI, Normocephalic Oral: Moist Mucosa Neck: Supple, Trachea Midline, Thyroid Normal Size and Texture Lungs: Clear to auscultation, Normal air movement, No rhonchi, No wheeze, No rales Cardiovascular: Regular rate, Regular Rhythm, No murmurs Abdomen: Bowel Sounds Present, Soft, Non Tender Extremities: No edema, Capillary Refill Less than 3 Seconds Skin: No rashes Neurological: Cranial nerves II-XII grossly intact, Neuro grossly intact, Sensory exam intact to light touch and pain, Coordination normal Psych/Mental Status: Appropriate, Flat Affect Vital Signs Temp Pulse Resp BP Pulse Ox 98.1 F 79 18 150/76 H 93 12/10/18 07:09 12/10/18 07:09 12/10/18 07:09 12/10/18 07:09 12/10/18 07:09 Oxygen Delivery Method Room Air Weight: 83.6 kg Body Mass Index (BMI) 23.6 Intake and Output for Last 24 Hours 12/08/18 12/09/18 12/10/18 23:59 23:59 23:59 Output Total 720 / 720 Balance -720 / -720 Laboratory Tests Past 24 Hrs 12/10/18 12/10/18 12/10/18 06:20 06:20 06:20 WBC 6.9 RBC 4.41 L Hgb 13.9 Hct 43.9 MCV 99.5 H MCH 31.5 MCHC 31.7 L RDW 13.1 RDW Differential 47.6 H Plt Count 118 L MPV 10.4 PT 17.1 H INR 1.4 Sodium 138 Potassium 4.6 Chloride 104 Carbon Dioxide 29.0 Anion Gap 5 BUN 15 Creatinine 0.77 Estim Creat Clear Calc 82.20 Est GFR (MDRD) Af Amer 129 Est GFR (MDRD) Non-Af 106 BUN/Creatinine Ratio 19.5 Glucose 103 Calcium 8.6 Medical Necessity - Tobacco Use Smoking Status: Never smoker Tobacco Use: Non-smoker Assessment/Plan All Active Problems Closed right hip fracture (Acute) Venous hypertension, chronic, with ulcer and inflammation (Resolved) Venous ulcer of ankle (Resolved) #1 Parkinson's disease-patient will continue on his present medication #2 factor V Leiden-patient is on warfarin and will get daily INRs and he will continue on subcu Lovenox until his INR is therapeutic #3 right hip femoral neck fracture-postop day #4-right hemiarthroplasty, continue PT OT #4 cerebrovascular disease Code Visit Inpatient E&M: 78777 Subs Hosp L2
[2018-12-10 22:00] VITALS: BP 135/71; PULSE 74; RESP 18; TEMP 36.5; O2SAT 99
[2018-12-11] MEDS: Carbidopa/Levodopa 25/100 Tablet PO ×3 (05:31→15:38)
[2018-12-11] MEDS: Acetaminophen 500 MG Tablet 1000 MG PO ×3 (05:32→21:41)
[2018-12-11] MEDS: Enoxaparin 80 MG/0.8 ML Syringe SC ×2 (05:32→17:15)
[2018-12-11 07:00] VITALS: BP 110/82; PULSE 98; RESP 18; TEMP 36.8; O2SAT 96
[2018-12-11] MEDS: oxyCODONE 5 MG Tablet PO (08:27)
[2018-12-11] MEDS: Senna/Docusate Sodium 1 Tablet 2 TABLET PO ×2 (08:29→21:41)
[2018-12-11] MEDS: Polyethylene Glycol 3350 17 GM PACKET PO (08:29)
[2018-12-11 09:31] LABS: Bacteria 0 SEEN /hpf (None Seen); Mucous, Urine 0 SEEN /hpf (<or=2+); Red Blood Cells-Urine 0 SEEN /hpf (0-5); Squamous Epithelial Cells - UA 0 SEEN /hpf (0-5); White Blood Cells 0 SEEN /hpf (0-5)
[2018-12-11 09:35] LABS: Color, Urine Yellow (Yellow); Glucose, Dipstick Normal (Normal); Ketone-Dipstick Negative (Negative); Leukocyte Esterase-Dipstick Negative /ul (Negative); Nitrite-Dipstick Negative (Negative); Occult Blood-Urine Negative /ul (Negative); Protein-Dipstick Negative (Negative); Urine Bilirubin Dipstick Negative (Negative); Urine Clarity Clear (Clear); Urine Urobilinogen 1 mg/dl (Normal)
--- NOTE | 2018-12-11 12:20 | PCM.PN.NEU ---
Subjective: Reports he still did not sleep well last night although this appears to be related to his enuresis. No other complaints. Tolerating therapies. No GI or complaints. - Physical Exam General: Alert, Oriented x3, Cooperative, No apparent distress Neurological: Cranial nerves II-XII grossly intact, - - Masked facies and bradyphrenia, no tremor Vital Signs Temp Pulse Resp BP Pulse Ox 36.8 C 98 18 110/82 H 96 12/11/18 07:00 12/11/18 07:00 12/11/18 07:00 12/11/18 07:00 12/11/18 07:00 Oxygen Delivery Method Room Air Weight: 83.6 kg Body Mass Index (BMI) 23.6 Intake and Output for Last 24 Hours 12/09/18 12/10/18 12/11/18 23:59 23:59 23:59 Intake Total 240 / 240 Output Total 720 / 720 200 / 200 Balance -720 / -720 40 / 40 Laboratory Tests Past 24 Hrs 12/11/18 06:30 Urine Color Yellow Urine Clarity Clear Urine pH 8.0 Ur Specific [place] 1.010 Urine Protein Negative Urine Glucose (UA) Normal Urine Ketones Negative Urine Occult Blood Negative Urine Nitrite Negative Urine Bilirubin Negative Urine Urobilinogen 1 H Ur Leukocyte Esterase Negative Urine RBC 0 SEEN Urine WBC 0 SEEN Ur Squamous Epith Cells 0 SEEN Urine Bacteria 0 SEEN Urine Mucus 0 SEEN Medical Necessity - Tobacco Use Smoking Status: Never smoker Tobacco Use: Non-smoker Assessment/Plan All Active Problems Closed right hip fracture (Acute) Venous hypertension, chronic, with ulcer and inflammation (Resolved) Venous ulcer of ankle (Resolved) Impression: Debility status post open reduction and internal fixation of a right hip fracture performed 12/07/[address] Mcduffie at [facility]. Postoperative course was uneventful. Complicated by history of parkinsonism. Goal of rehab is temple of previous level of functional independence. Plan: Physical therapy for gait and balance Occupational Therapy for ADLs PRN analgesics Bowel protocol Parkinsonism: Continue carbidopa levodopa. Sees Dr. Cortes's [facility] Urinary retention: Will initiate Flomax. 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 No specific treatment although he is made aware of this that it may further impair his balance. Insomnia: I think this is still due to his enuresis. Encourage Ativan at bedtime.
[2018-12-11 14:16] VITALS: BMI 23.6
--- NOTE | 2018-12-11 14:59 | NURSING ---
pa alarming. pt legs dangling over side of bed. pt states i am going home. informed pt that he was here for rehab after hip surgery and not safe to ambulate on own at this time. pt continues to attempt to get up on own, states he is going home. pt to chair with assist x2 and to nurses station. pa and ca inplace. pt attempted to call and states no answer.
--- NOTE | 2018-12-11 15:30 | NURSING ---
Patient has had increased confusion from waking up from nap. Combative with staff, threatening to call 911, attempted self transfers to take himself home. has been called and she will be coming in for a visit. Dr. Tinsley aware and new order for vistaril prn agitation. Patient currently up at desk sitting with staff and yelling out inappropriately and attempting self transfers.
[2018-12-11] MEDS: hydrOXYzine PAM 25 MG Capsule PO (15:38)
[2018-12-11 16:16] LABS: International Normalized Ratio 1.4; Prothrombin Time (Protime)PT. 16.8 SECONDS (11.7-14.9)
--- NOTE | 2018-12-11 16:30 | NURSING ---
and grandchild present and patient still remains agitated. AIR CONDITIONING MECHANIC took patient for a walk and he attempted to get out of rehab unit via front doors and refused to sit down in chair. Patient yelling at and telling her this is all her fault. Patient not making sense at times. 1:1 provided with redirection and ineffective. Patient eventually sat down and AIR CONDITIONING MECHANIC directed patient and family to room to decrease stimuli.
[2018-12-11] MEDS: Tamsulosin HCl 0.4 MG Capsule 0.8 MG PO (17:15)
[2018-12-11 19:54] VITALS: BP 151/76; PULSE 82; RESP 18; TEMP 36.6; O2SAT 94
[2018-12-11] MEDS: LORazepam 0.5 MG Tablet PO (21:41)
[2018-12-11 23:51] VITALS: BMI 23.6
[2018-12-12] MEDS: Acetaminophen 500 MG Tablet 1000 MG PO ×3 (06:22→22:07)
[2018-12-12] MEDS: Enoxaparin 80 MG/0.8 ML Syringe SC ×2 (06:24→17:32)
[2018-12-12] MEDS: Carbidopa/Levodopa 25/100 Tablet PO ×3 (06:25→16:27)
[2018-12-12 07:14] LABS: International Normalized Ratio 1.6
[2018-12-12 07:38] VITALS: BP 124/75; PULSE 69; RESP 18; TEMP 36.7; O2SAT 93
[2018-12-12] MEDS: Senna/Docusate Sodium 1 Tablet 2 TABLET PO ×2 (09:08→22:08)
[2018-12-12] MEDS: Polyethylene Glycol 3350 17 GM PACKET PO (09:08)
[2018-12-12] MEDS: hydrOXYzine PAM 25 MG Capsule PO (15:08)
[2018-12-12 15:43] VITALS: BMI 23.6
--- NOTE | 2018-12-12 16:00 | NURSING ---
Patient remains confused but no attempts at self transferring. Patient had become agitated with prior and asking her why she put him in this dungeon. Patient becoming argumentative with and staff and could not be redirected or reoriented and prn vistaril was given. Currently patient taking a walk in [place] with staff and has become less agitated.
--- NOTE | 2018-12-12 17:21 | PCM.PROGNOTE ---
Subjective: Patient was seen and examined today and the rehab unit at [facility], he does not appear to be agitated today, his INR still is not therapeutic. - Physical Exam General: Alert, Oriented x3, Cooperative, No apparent distress, Well developed HEENT: Atraumatic, PERRLA, EOMI, Normocephalic Oral: Moist Mucosa Neck: Supple, Trachea Midline, Thyroid Normal Size and Texture Lungs: Clear to auscultation, Normal air movement, No rhonchi, No wheeze, No rales Cardiovascular: Regular rate, Regular Rhythm, Normal S1, Normal S2, No murmurs, No Ectopic Activity Abdomen: Bowel Sounds Present, Soft, Non Tender, Non-Distended Extremities: No clubbing, No cyanosis, No edema, Capillary Refill Less than 3 Seconds Skin: No rashes Neurological: Cranial nerves II-XII grossly intact, Neuro grossly intact, Sensory exam intact to light touch and pain Psych/Mental Status: Flat Affect, - - Patient answers simple questions appropriately Vital Signs Temp Pulse Resp BP Pulse Ox 98.1 F 69 18 124/75 H 93 12/12/18 07:38 12/12/18 07:38 12/12/18 07:38 12/12/18 07:38 12/12/18 07:38 Oxygen Delivery Method Room Air Weight: 83.6 kg Body Mass Index (BMI) 23.6 Intake and Output for Last 24 Hours 12/10/18 12/11/18 12/12/18 23:59 23:59 23:59 Intake Total 360 / 360 480 / 480 Output Total 720 / 720 600 / 600 Balance -720 / -720 -240 / -240 480 / 480 Laboratory Tests Past 24 Hrs 12/12/18 06:10 PT 19.0 H INR 1.6 Medical Necessity - Tobacco Use Smoking Status: Never smoker Tobacco Use: Non-smoker Assessment/Plan All Active Problems Closed right hip fracture (Acute) Venous hypertension, chronic, with ulcer and inflammation (Resolved) Venous ulcer of ankle (Resolved) #1 Parkinson's disease-patient will continue on his present medication #2 factor V Leiden-patient is on warfarin and will get daily INRs and he will continue on subcu Lovenox until his INR is therapeutic, patient will receive extra Coumadin today #3 right hip femoral neck fracture-postop day #5-right hemiarthroplasty, continue PT OT #4 cerebrovascular disease Code Visit Inpatient E&M: 42309 Subs Hosp L2
--- NOTE | 2018-12-12 17:26 | PN_ITS ---
Subjective: Patient was seen and examined today and the rehab unit at [facility], he does not appear to be agitated today, his INR still is not t herapeutic. - Physical Exam General: Alert, Oriented x3, Cooperative, No apparent distress, Well developed HEENT: Atraumatic, PERRLA, EOMI, Normocephalic Oral: Moist Mucosa Neck: Supple, Trachea Midline, Thyroid Normal Size and Texture Lungs: Clear to auscultation, Normal air movement, No rhonchi, No wheeze, No rales Cardiovascular: Regular rate, Regular Rhythm, Normal S1, Normal S2, No murmurs, No Ectopic Activity Abdomen: Bowel Sounds Present, Soft, Non Tender, Non-Distended Extremities: No clubbing, No cyanosis, No edema, Capillary Refill Less than 3 Seconds Skin: No rashes Neurological: Cranial nerves II-XII grossly intact, Neuro grossly intact, Sensory exam intact to light touch and pain Psych/Mental Status: Flat Affect, - - Patient answers simple questions appropriately Vital Signs Temp Pulse Resp BP Pulse Ox 98.1 F 69 18 124/75 H 93 12/12/18 07:38 12/12/18 07:38 12/12/18 07:38 12/12/18 07:38 12/12/18 07:38 Oxygen Delivery Method Room Air Weight: 83.6 kg Body Mass Index (BMI) 23.6 Intake and Output for Last 24 Hours 12/10/18 12/11/18 12/12/18 23:59 23:59 23:59 Intake Total 360 / 360 480 / 480 Output Total 720 / 720 600 / 600 Balance -720 / -720 -240 / -240 480 / 480 Laboratory Tests Past 24 Hrs 12/12/18 06:10 PT 19.0 H INR 1.6 Medical Necessity - Tobacco Use Smoking Status: Never smoker Tobacco Use: Non-smoker Assessment/Plan All Active Problems Closed right hip fracture (Acute) Venous hypertension, chronic, with ulcer and inflammation (Resolved) Venous ulcer of ankle (Resolved) #1 Parkinson's disease-patient will continue on his present medication #2 factor V Leiden-patient is on warfarin and will get daily INRs and he will continue on subcu Lovenox until his INR is therapeutic, patient will receive extra Coumadin today #3 right hip femoral neck fracture-postop day #5-right hemiarthroplasty, continue PT OT #4 cerebrovascular disease Code Visit Inpatient E&M: 64251 Subs Hosp L2
[2018-12-12] MEDS: Tamsulosin HCl 0.4 MG Capsule 0.8 MG PO (17:32)
[2018-12-12 19:40] VITALS: BP 104/64; PULSE 75; RESP 20; TEMP 36.7; O2SAT 95
[2018-12-12] MEDS: LORazepam 0.5 MG Tablet PO (22:09)
[2018-12-13] MEDS: Carbidopa/Levodopa 25/100 Tablet PO ×3 (06:49→16:23)
[2018-12-13] MEDS: Acetaminophen 500 MG Tablet 1000 MG PO ×3 (06:49→20:20)
[2018-12-13 06:55] LABS: International Normalized Ratio 1.8
[2018-12-13] MEDS: Enoxaparin 80 MG/0.8 ML Syringe SC ×2 (07:03→17:28)
--- NOTE | 2018-12-13 10:43 | NURSING ---
ambulated to multipurpose room with walker and assist x1 and wheelchair follow.
--- NOTE | 2018-12-13 11:36 | NURSING ---
completed 15 minutes on [employer].
[2018-12-13 14:54] VITALS: BP 133/75; PULSE 72; RESP 18; TEMP 36.3; O2SAT 93
[2018-12-13 14:58] VITALS: BMI 23.6
[2018-12-13] MEDS: Tamsulosin HCl 0.4 MG Capsule 0.8 MG PO (17:28)
--- NOTE | 2018-12-13 19:16 | NURSING ---
c/o pain to right knee with ambulation per pt. not tolerable to put weight through. right knee red, warm and edematous. polar care applied. beny bauer aware.
[2018-12-13 20:00] VITALS: BP 115/67; PULSE 70; RESP 18; TEMP 36.7; O2SAT 94; BMI 23.6
[2018-12-13] MEDS: LORazepam 0.5 MG Tablet PO (20:20)
--- NOTE | 2018-12-14 03:34 | NURSING ---
REVIEWED AND AGREE WITH [employer]OVERST[employer]'S FIM AND HANDOFF CHARTING.
[2018-12-14 05:52] LABS: International Normalized Ratio 1.9; Prothrombin Time (Protime)PT. 21.7 SECONDS (11.7-14.9)
[2018-12-14] MEDS: Acetaminophen 500 MG Tablet 1000 MG PO ×3 (06:01→20:07)
[2018-12-14] MEDS: Enoxaparin 80 MG/0.8 ML Syringe SC ×2 (07:23→17:00)
[2018-12-14] MEDS: Carbidopa/Levodopa 25/100 Tablet PO ×3 (07:23→16:29)
[2018-12-14 07:41] VITALS: BP 110/65; PULSE 73; RESP 18; TEMP 36.8; O2SAT 97
--- NOTE | 2018-12-14 08:15 | PCM.PN.HOSP ---
Subjective: Patient with ongoing right knee discomfort but per nursing had also had right calf discomfort over the last several days, difficult to stand on his right lower extremity secondary to this discomfort. Patient otherwise had been tolerating therapies but limited over the last 24-48 hrs. secondary to as noted discomfort right lower extremity and knee. Patient denies fevers, chills, nausea, emesis, abdominal pain, chest pain or dyspnea. Objective: Physical Examination: General: awake, alert, oriented x 3 and cooperative, initially standing upright doing a card game with therapies, seated for examination, notes ongoing discomfort to the right knee. Skin: normal color, turgor, no icterus, cyanosis, status post right femoral neck fracture, incision intact. HEENT: AT/NC, EOMI, PERRLA, MMM. Lungs: CTA bilaterally, moderate effort, mild decrease BL bases, no rales, ronchi or wheezing. Heart: Regular rate and rhythm; no gallop, rub audible. Abdomen: soft, NTTP, ND, normal BS. Extremities: no cyanosis, clubbing, that is post mechanical fall, right femoral neck fracture, status post operative repair, discomfort to movement right lower extremity primarily right knee, no effusion, no discomfort with palpation of the calf. Neurological: patient awake, alert, oriented x 3; cognitive function intact; pupils equally reactive to light and accomodation; cranial nerves II-XII grossly normal, moving all 4 extremities; however, limited right lower extremity secondary to knee discomfort, strength accordingly moderately to severely globally decreased. Psychiatric: affect appears normal, no acute evidence of depressive or anxiety feelings. Vitals/I&O's: Vital Signs Temp Pulse Resp BP Pulse Ox 98.3 F 73 18 110/65 97 12/14/18 07:41 12/14/18 07:41 12/14/18 07:41 12/14/18 07:41 12/14/18 07:41 Oxygen Delivery Method Room Air Weight: 184 lb 4.903 oz Body Mass Index (BMI) 23.6 Intake and Output for Last 24 Hours 12/12/18 12/13/18 12/14/18 23:59 23:59 23:59 Intake Total 720 / 720 720 / 720 Balance 720 / 720 720 / 720 Laboratory Results 12/14/18 05:25: PT 21.7 H, INR 1.9 Current Medications Acetaminophen (Tylenol) 1,000 mg PO Q8 [facility] Last Admin: 12/14/18 06:01 Dose: 1,000 mg Bisacodyl (Dulcolax) 10 mg RECTAL .PRN X 1 PRN PRN Reason: Constipation Last Admin: 12/10/18 16:00 Dose: 10 mg Carbidopa/Levodopa (Sinemet) 2 tablet PO TIDAC [facility] Last Admin: 12/14/18 07:23 Dose: 2 tablet Enoxaparin Sodium (Lovenox) 80 mg SC 0600,1800 [facility] Last Admin: 12/14/18 07:23 Dose: 80 mg Hydroxyzine Pamoate (Vistaril Pamoate Capsule) 25 - 50 mg PO Q6H PRN PRN Reason: ANXIETY/AGITATION Last Admin: 12/12/18 15:08 Dose: 50 mg Lorazepam (Ativan) 0.5 mg PO QHS PRN PRN PRN Reason: INSOMNIA Last Admin: 12/13/18 20:20 Dose: 0.5 mg Magnesium Hydroxide (Milk Of Magnesia) 30 ml PO .PRN X 1 PRN PRN Reason: Constipation Polyethylene Glycol (Miralax) 17 gm PO DAILY [facility] Last Admin: 12/13/18 18:57 Dose: Not Given Senna/Docusate Sodium (Senokot-S, Tara-Colace) 2 tablet PO BID [facility] Last Admin: 12/13/18 18:59 Dose: Not Given Tamsulosin HCl (Flomax) 0.8 mg PO DAILY@1730 [facility] Last Admin: 12/13/18 17:28 Dose: 0.8 mg Warfarin Sodium (Coumadin (Pbkc)) 8 mg PO DAILY@1700 [facility] Last Admin: 12/13/18 17:28 Dose: 8 mg Warfarin Sodium (Coumadin (Pbkc)) 5 mg PO X1 ONE Stop: 12/14/18 17:01 Medical Necessity - Tobacco Use Smoking Status: Never smoker Tobacco Use: Non-smoker Assessment/Plan All Active Problems Closed right hip fracture (Acute) Venous hypertension, chronic, with ulcer and inflammation (Resolved) Venous ulcer of ankle (Resolved) The patient is a 68 y/o M w/ PMHx: Parkinson's Disease, 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 Mcduffie who presents to the [facility] on 12/09/18 for ongoing therapies. (1) General debility, s/p Recent R hip pain s/p mechanical fall w/ R Femoral Neck fracture: Recent admission for mechanical fall, Plain film noting R femoral neck fracture, OR 12/07/[address] Mcduffie, s/p Right hip hemiarthroplasty, PT and OT ongoing, fall precautions, continued on coumadin w/ lovenox overlap, INR still mildly subtherapeutic, will given additional dose coumadin, repeat INR in AM, transition off lovenox once appropriate. (2) R Knee, RLE distal to Knee Pain, Acute: New onset, recent surgery, given hold on Coumadin although currently on Coumadin with Lovenox bridging concern given DVT history and factor V Leiden mutation history for possible DVT, DVT ultrasound obtained and no acute DVT evident, plain film of the knee with only mild swelling noted no acute finding otherwise. We will continue to trend INR, additional Coumadin will be administered this evening and attempt to reach therapeutic level and transition off concurrent therapeutic Lovenox. If ongoing discomfort recommended evaluation per orthopedic surgery given plain film of the knee unremarkable. 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 (4) Parkinson's Disease: Continue home Sinemet regimen, fall precautions, PT, OT. (5) Hx Prior CVA x 2: Notes prior CVA, deficits primarily memory and vision issues, continued on coumadin and therapeutic lovenox until therapeutic INR, not on statin, BP normal range, not on regimen. (6) DVT Prophylaxis: SCDs, continue Coumadin with therapeutic Lovenox overlap, additional Coumadin regimen to be given this evening in an attempt to reach therapeutic level trend INR. Code Visit Inpatient E&M: 46488 Subs Hosp L3
--- NOTE | 2018-12-14 08:37 | NURSING ---
patient c/o pain behind right knee that radiates to calf and tender to touch upon palpation. mild edema noted, without redness to right lower extremity. dr. miller aware, new order for duplex studies.
--- NOTE | 2018-12-14 08:52 | RAD_ITS ---
STUDY: X-RAY - RIGHT KNEE REASON FOR EXAM: Male, 68 years old. Pain following recent knee replacement. TECHNIQUE: 3 view(s) of the knee. COMPARISON: Comparison is made with prior study dated July 19, 2013. FINDINGS: Normal visualized distal femur. Normal visualized proximal tibia and fibula. Normal proximal tibiofibular articulation. The patient is status post total knee replacement. There is good alignment. Soft tissue swelling. RAD/Knee 3 Views IMPRESSION: Status post total knee replacement. Soft tissue swelling. Electronically Signed: Lester Altamirano, at 12:10 EDT , Service support ,
--- NOTE | 2018-12-14 08:53 | VDLE_ITS ---
Reason For Study: LEG PAIN RIGHT LEFT CFV is compressible, spontaneous, phasic, GSV is normal. competent and demonstrates normal CFV is compressible, spontaneous, phasic, augmentation. competent, and demonstrates normal FV is compressible, spontaneous, phasic, augmentation. competent and demonstrates normal FV is compressible, spontaneous, phasic, augmentation. competent and demonstrates normal POP V is compressible, spontaneous, phasic, augmentation. competent and demonstrates normal POP V is compressible, spontaneous, phasic, augmentation. competent and demonstrates normal T/P trunk is partially compressible with augmentation. bright intraluminal echoes consistant with T/P Trunk is compressible. chronic clot. PTV is compressible. GSV absent. LT PerV is compressible. PTV is compressible. RT PerV is compressible. Procedure Exam performed in department. A preliminary report was called and/or faxed to RU nurse. Interpretation Summary Chronic venous changes are noted in the right tibio-peroneal trunk, which is partially compressible and demonstrates bright intraluminal echogenicity. The remainder of the right lower extremity deep venous system is patent and compressible. Deep veins of the left lower extremity are patent and compressible segmentally. There is no evidence of left lower extremity deep vein thrombosis. Valvular competence appears intact within the proximal deep venous systems bilaterally. The right greater saphenous vein is absent. The left greater saphenous vein is patent and compressible. Ordering Physician: Stephany Orozco Referring Physician: Josh Baptiste Performed By: Kaitlyn Mercado RVT
--- NOTE | 2018-12-14 10:16 | NURSING ---
duplex to ble negative for dvt. dr. rubio and dr miller aware.
--- NOTE | 2018-12-14 10:27 | PN.NEURO_ITS ---
Subjective: No issues overnight. Care discussed with the nursing staff. Staffed in the team meeting today. All questions were answered. Further therapy details per PT/OT no documentation. Plan is to reteam him next Friday. 68-year-old male with PMH PD, CVA, factor V Leyden mutation, history of DVT on Coumadin, chronic pressure ulcer, chronic venous insufficiency, history of ulcerative lower extremity extremity post phlebitic syndrome s/p prior IVC filter, history of chronic stasis/ulcers LE admitted to [facility] inpatient rehab unit on 12/07/2018 with debility status post fall right hip femoral neck displaced fracture, status post ORIF/right hip hemiarthroplasty by Dr. Mcduffie on 12/07/2018, for greater than 3 hours therapy daily with the goal of returning back home at or near his prior level of functional independence. - Physical Exam General: Alert HEENT: Normocephalic Neck: Supple Lungs: Normal air movement Cardiovascular: Normal S1, Normal S2 Abdomen: Bowel Sounds Present Extremities: No cyanosis Neurological: Cranial nerves II-XII grossly intact, Neuro grossly intact, Motor Exam 5/5 strength throughout, Muscle tone normal, Sensory exam intact to light touch and pain, Coordination normal, - - No tremors or rigidity at present Vital Signs Temp Pulse Resp BP Pulse Ox 98.3 F 73 18 110/65 97 12/14/18 07:41 12/14/18 07:41 12/14/18 07:41 12/14/18 07:41 12/14/18 07:41 Oxygen Delivery Method Room Air Weight: 83.6 kg Body Mass Index (BMI) 23.6 Intake and Output for Last 24 Hours 12/12/18 12/13/18 12/14/18 23:59 23:59 23:59 Intake Total 720 / 720 720 / 720 240 / 240 Balance 720 / 720 720 / 720 240 / 240 Laboratory Tests Past 24 Hrs 12/14/18 05:25 PT 21.7 H INR 1.9 Medical Necessity - Tobacco Use Smoking Status: Never smoker Tobacco Use: Non-smoker Assessment/Plan All Active Problems Closed right hip fracture (Acute) Venous hypertension, chronic, with ulcer and inflammation (Resolved) Venous ulcer of ankle (Resolved) 68-year-old male with PMH PD, CVA, factor V Leyden mutation, history of DVT on Coumadin, chronic pressure ulcer, chronic venous insufficiency, history of ulcerative lower extremity extremity post phlebitic syndrome s/p prior IVC filter, history of chronic stasis/ulcers LE admitted to [facility] inpatient rehab unit on 12/07/2018 with debility status post fall right hip femoral neck displaced fracture, status post ORIF/right hip hemiarthroplasty by Dr. Mcduffie on 12/07/2018, for greater than 3 hours therapy daily with the goal of returning back home at or near his prior level of functional independence Plan ?PT for gait stability ?OT for ADLs ?Analgesic as needed ?Bowel protocol ?Patient complained of right knee pain. X-ray knee reported to show soft tissue swelling. Recommend orthopedic consultation. ?Right femoral neck fracture S/P right hip [id number] plan recommendations per Dr. Bundy, weight bearing as tolerated ?PD?on Sinemet 2 tablet p.o. 3 times daily. Follows up with Dr. Cortes ?Factor V Leyden mutation/history of DVT?on Coumadin INR 1.9 today. Monitor INR daily. ?GI/DVT prophylaxis?pantoprazole/Coumadin. On enoxaparin until INR is greater than 2. Once INR is greater than 2 discontinue enoxaparin. ?BPH-on tamsulosin ?Fall precautions ?Further medical management per hospitalist recommendation ?Follow-up with PCP, orthopedic surgery and neurology as outpatient.
--- NOTE | 2018-12-14 12:23 | NURSING ---
dr miller aware of xray results to right knee, no new orders.
[2018-12-14 12:45] VITALS: BMI 23.6
--- NOTE | 2018-12-14 13:22 | NURSING ---
patient cooperative and pleasant this shift. a/o x3. patient participating in therapy without difficulty.
--- NOTE | 2018-12-14 14:12 | CASEMGMT ---
Team meeting held in pt room with pt present. Pt is receiving PT/OT/ST and progressing with therapy. Pt plans to return home with his spouse at time of discharge. Medicare has approved 16 day of inpt rehab with d/c being 12/25/18. Will continue with treatment plan at this time and reteam next week. With pt permission, SW called pt and updated on team meeting information and d/c date. SW will continue to follow for support and d/c planning. MEGAN Purdy
[2018-12-14] MEDS: Tamsulosin HCl 0.4 MG Capsule 0.8 MG PO (16:50)
[2018-12-14 20:00] VITALS: BP 113/55; PULSE 78; RESP 16; TEMP 36.4; O2SAT 93; BMI 23.6
[2018-12-14] MEDS: hydrOXYzine PAM 25 MG Capsule PO (20:09)
[2018-12-14] MEDS: LORazepam 0.5 MG Tablet PO (22:28)
--- NOTE | 2018-12-14 22:36 | NURSING ---
Addendum entered by Mckenna Squires 12/14/18 22:39: pt stated that he was having trouble getting comfortable, ativan given as per order and pt repositioned for comfort call light in reach Original Note: pt having some anxiety about pain and sleeping vistaril given at per order at 1999. pt repositioned for comfort 2230 pt called out for ativan
--- NOTE | 2018-12-15 03:20 | NURSING ---
Reviewed and agree with [employer] documentation and FIMs charting
[2018-12-15 06:05] LABS: International Normalized Ratio 2.3
[2018-12-15] MEDS: Acetaminophen 500 MG Tablet 1000 MG PO ×3 (06:11→21:10)
[2018-12-15 07:00] VITALS: BP 112/65; PULSE 77; RESP 18; TEMP 36.9; O2SAT 96
[2018-12-15] MEDS: Carbidopa/Levodopa 25/100 Tablet PO ×3 (07:07→17:06)
--- NOTE | 2018-12-15 10:19 | NURSING ---
Poke with Lesa at Dr Bundy's office regarding pt's Knee xray results. Dr Bundy is out of office until . She discuss it with him and call back.
--- NOTE | 2018-12-15 10:45 | PN.NEURO_ITS ---
Subjective: No issues overnight. Care discussed with nursing staff. - Physical Exam General: Alert HEENT: Normocephalic Neck: Supple Lungs: Normal air movement Cardiovascular: Normal S1, Normal S2 Abdomen: Bowel Sounds Present Extremities: No cyanosis Neurological: - - Cranial nerves II-XII grossly intact, Neuro grossly intact, Motor Exam 5/5 strength throughout, Muscle tone normal, Sensory exam intact to light touch and pain, Coordination normal, - - No tremors or rigidity at present, mild bradykinesia present Vital Signs Temp Pulse Resp BP Pulse Ox 98.4 F 77 18 112/65 96 12/15/18 07:00 12/15/18 07:00 12/15/18 07:00 12/15/18 07:00 12/15/18 07:00 Oxygen Delivery Method Room Air Weight: 83.6 kg Body Mass Index (BMI) 23.6 Intake and Output for Last 24 Hours 12/13/18 12/14/18 12/15/18 23:59 23:59 23:59 Intake Total 720 / 720 460 / 460 360 / 360 Balance 720 / 720 460 / 460 360 / 360 Laboratory Tests Past 24 Hrs 12/15/18 05:30 PT 25.0 H INR 2.3 Medical Necessity - Tobacco Use Smoking Status: Never smoker Tobacco Use: Non-smoker Assessment/Plan All Active Problems Closed right hip fracture (Acute) Venous hypertension, chronic, with ulcer and inflammation (Resolved) Venous ulcer of ankle (Resolved) 68-year-old male with PMH PD, CVA, factor V Leyden mutation, history of DVT on Coumadin, chronic pressure ulcer, chronic venous insufficiency, 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 Mcduffie on 12/07/2018, for greater than 3 hours therapy daily with the goal of returning back home at or near his prior level of functional independence Plan ?PT for gait stability ?OT for ADLs ?Analgesic as needed ?Bowel protocol ?Patient complained of right knee pain. X-ray knee reported to show soft tissue swelling. Orthopedic consultation appreciated. ?Right femoral neck fracture S/P right hip [id number] plan recommendations per Dr. Bundy, weight bearing as tolerated ?PD?on Sinemet 2 tablet p.o. 3 times daily. Follows up with Dr. Cortes ?Factor V Leyden mutation/history of DVT?on Coumadin INR 2.3. Monitor INR daily. ?GI/DVT prophylaxis?pantoprazole/Coumadin. -Venous Duplex- chronic left LE DVT, no acute DVT. ?BPH-on tamsulosin ?Fall precautions ?Further medical management per hospitalist recommendation ?Follow-up with PCP, orthopedic surgery and neurology as outpatient.
--- NOTE | 2018-12-15 13:22 | PCM.CONS.GEN ---
Reason for Consult Date of Consultation: 12/15/18 Reason for Consultation: Right knee pain History of Present Illness: The patient is a 68 year old M well-known to me as he has had a recent right femoral neck fracture for which she underwent hemiarthroplasty. He has had a total knee replacement by another surgeon in the past. He is in the rehabilitation unit recovering from his hip fracture and Parkinson's disease he started having pain in his right knee this past Friday no fevers or chills no injury to the knee. He denies calf pain he denies pain in the hip. 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) Chronic venous insufficiency (Chronic) Venous ulcer of right lower extremity with varicose veins (Chronic) History of ulcer of lower extremity (Chronic) Postphlebitic syndrome with inflammation (Chronic) Ulcer, pressure (Chronic) Allergies No Known Allergies Allergy (Verified 12/09/18 15:46) Home Medications: Ambulatory Orders Medication Instructions Recorded Carbidopa/Levodopa 2 each PO TID 12/05/18 [Carbidopa-Levodopa 25-100 Tab] Warfarin Sodium [Coumadin] 2 tab PO DAILY 12/05/18 Acetaminophen [Tylenol] 1,000 mg PO Q8 12/09/18 Carbidopa/Levodopa 25/100 [Sinemet 2 tablet PO TIDAC 12/09/18 25/100] Polyethylene Glycol 3350 [Miralax] 17 gm PO DAILY 12/09/18 Surgical History: - - Patient underwent endovenous laser ablation of the right great saphenous vein, the right small saphenous vein, the right accessory saphenous vein on May 04, 2013, right hand surgery, left hip fracture surgery, right total knee replacement, IVC filter placement. Psychiatric History: No pertinent psych hx Smoking Status: Never smoker Tobacco Use: Non-smoker - *Family History Paternal History Items: No pertinent history - Patient father with no market history, at age 92, no diabetes, heart disease, cancer history. Maternal History Items: Heart Disease - Patient at age 72 secondary to complications from [place], coronary disease. - Physical Exam Extremities: - - The right hip incision is well approximated with fredis there is no sign of infection. The right thigh and calf are soft and supple there is no sign of infection. There is no joint effusion in the knee. He has an intact extensor mechanism there is a palpable quadriceps and patellar tendon without defect. There is no collateral ligament instability. His range of motion is decreased due to pain. Vital Signs Temp Pulse Resp BP Pulse Ox 98.4 F 77 18 112/65 96 12/15/18 07:00 12/15/18 07:00 12/15/18 07:00 12/15/18 07:00 12/15/18 07:00 Oxygen Delivery Method Room Air Weight: 184 lb 4.903 oz Body Mass Index (BMI) 23.6 Intake and Output for Last 24 Hours 12/13/18 12/14/18 12/15/18 23:59 23:59 23:59 Intake Total 720 / 720 460 / 460 360 / 360 Balance 720 / 720 460 / 460 360 / 360 Laboratory Tests Past 24 Hrs 12/15/18 05:30 PT 25.0 H INR 2.3 Assessment/Plan All Active Problems Closed right hip fracture (Acute) Venous hypertension, chronic, with ulcer and inflammation (Resolved) Venous ulcer of ankle (Resolved) Right knee pain status post total knee arthroplasty without sign of infection or DVT x-rays are reviewed without concerning signs and she is likely having aggravation of his knee secondary to altered gait from recent hip surgery there is no orthopedic intervention at this point that can be offered recommend continued physical therapy and pain control should be removed from the hip 2 weeks postoperatively.
--- NOTE | 2018-12-15 13:57 | NURSING ---
dr duncan here to see pt for c/o right knee pain. no new orders.
[2018-12-15 13:59] VITALS: BMI 23.6
[2018-12-15] MEDS: Tamsulosin HCl 0.4 MG Capsule 0.8 MG PO (18:06)
[2018-12-15 20:15] VITALS: BP 121/70; PULSE 69; RESP 20; TEMP 36.1; O2SAT 93; BMI 23.6
[2018-12-15] MEDS: Senna/Docusate Sodium 1 Tablet 2 TABLET PO (21:10)
[2018-12-15] MEDS: LORazepam 0.5 MG Tablet PO (21:11)
--- NOTE | 2018-12-16 00:33 | NURSING ---
Reviewed and agree with [employer] documentation and FIMs charting.
[2018-12-16] MEDS: Carbidopa/Levodopa 25/100 Tablet PO ×3 (06:10→16:02)
[2018-12-16] MEDS: Acetaminophen 500 MG Tablet 1000 MG PO ×3 (06:11→20:59)
[2018-12-16 06:17] LABS: International Normalized Ratio 2.3; Prothrombin Time (Protime)PT. 25.3 SECONDS (11.7-14.9)
[2018-12-16] MEDS: Senna/Docusate Sodium 1 Tablet 2 TABLET PO ×2 (08:21→20:59)
[2018-12-16] MEDS: Polyethylene Glycol 3350 17 GM PACKET PO (08:22)
[2018-12-16 08:25] VITALS: BP 109/63; PULSE 61; RESP 16; TEMP 36.5; O2SAT 95
[2018-12-16 15:34] VITALS: BMI 23.6
[2018-12-16] MEDS: Tamsulosin HCl 0.4 MG Capsule 0.8 MG PO (17:15)
[2018-12-16 20:01] VITALS: RESP 16; O2SAT 97
[2018-12-16] MEDS: Hydrocortisone 2.5% Crm 1 APPLIC TOPICAL (20:58)
[2018-12-16 22:00] VITALS: BP 116/64; PULSE 78; RESP 16; TEMP 36.1; O2SAT 94
[2018-12-17] MEDS: LORazepam 0.5 MG Tablet PO ×2 (00:34→20:26)
[2018-12-17 06:25] LABS: International Normalized Ratio 2.3; Prothrombin Time (Protime)PT. 25.6 SECONDS (11.7-14.9)
[2018-12-17] MEDS: Acetaminophen 500 MG Tablet 1000 MG PO ×3 (07:00→20:19)
[2018-12-17] MEDS: Carbidopa/Levodopa 25/100 Tablet PO ×3 (07:02→16:06)
[2018-12-17] MEDS: Senna/Docusate Sodium 1 Tablet 2 TABLET PO (09:26)
[2018-12-17] MEDS: Hydrocortisone 2.5% Crm 1 APPLIC TOPICAL ×2 (09:27→20:18)
[2018-12-17 09:51] VITALS: BP 110/63; PULSE 79; RESP 16; TEMP 36.8; O2SAT 96
[2018-12-17 14:48] VITALS: BMI 23.6
--- NOTE | 2018-12-17 15:23 | CASEMGMT ---
Social Work Phone call to pt and discussed discharge plan. Pt is requesting return home with tomorrow. Family training today with PT. Therapy is recommending out pt PT and a wheeled walker. Pt is agreeable to d/c home tomorrow. She will transport pt home. She would like outpt PT arranged with [facility] and [facility] to be ordered from [employer]. Pt has several children that live in neighborhood and are willing to assist with pt care needs. RN notified of pt choice to d/c home tomorrow 12/18/18. Referral made to [facility] and [facility]. Will fax orders when available. Plan: Home with on 12/18/18 with outpt PT MEGAN Purdy
--- NOTE | 2018-12-17 16:10 | PCM.PN.NEU ---
Subjective: No medical issues overnight. Care discussed with the nursing staff. Staffed in the team meeting again today as had some complaints the patient was not getting enough therapy through the day. All questions were answered. Patient and were reassured that patient is getting at least 3 hours of therapy every day. Per patient he does not want to stay in the rehab for further therapy. But per PT/OT recommendation patient is not ready for discharge yet from the therapy standpoint of view and is at the fall risk. It was determined in the meeting that therapy did not feel that it was safe for the patient to be discharged at this time. At the end of discussion it was determined that patient likely would like to be discharged by tomorrow evening 12/18/2018. Patient will be signing out AGAINST MEDICAL ADVICE at the time. - Physical Exam General: Alert HEENT: Normocephalic Neck: Supple Lungs: Normal air movement Cardiovascular: Normal S1, Normal S2 Abdomen: Bowel Sounds Present Extremities: No cyanosis Neurological: - - Cranial nerves II-XII grossly intact, Neuro grossly intact, Motor Exam 5/5 strength throughout, Muscle tone normal, Sensory exam intact to light touch and pain, Coordination normal, - - No tremors or rigidity at present, mild bradykinesia present Psych/Mental Status: Normal Affect Vital Signs Temp Pulse Resp BP Pulse Ox 98.2 F 79 16 110/63 96 12/17/18 09:51 12/17/18 09:51 12/17/18 09:51 12/17/18 09:51 12/17/18 09:51 Oxygen Delivery Method Room Air Weight: 82.8 kg Body Mass Index (BMI) 23.6 Intake and Output for Last 24 Hours 12/15/18 12/16/18 12/17/18 23:59 23:59 23:59 Intake Total 960 / 960 600 / 600 Balance 960 / 960 600 / 600 Laboratory Tests Past 24 Hrs 12/17/18 05:56 PT 25.6 H INR 2.3 Medical Necessity - Tobacco Use Smoking Status: Never smoker Tobacco Use: Non-smoker Assessment/Plan All Active Problems Closed right hip fracture (Acute) Venous hypertension, chronic, with ulcer and inflammation (Resolved) Venous ulcer of ankle (Resolved) 68-year-old male with PMH PD, CVA, factor V Leyden mutation, history of DVT on Coumadin, chronic pressure ulcer, chronic venous insufficiency, 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 Mcduffie on 12/07/2018, for greater than 3 hours therapy daily with the goal of returning back home at or near his prior level of functional independence Plan ?PT for gait stability ?OT for ADLs ?Analgesic as needed ?Bowel protocol ?Patient complained of right knee pain. X-ray knee reported to show soft tissue swelling. Orthopedic consultation appreciated. ?Right femoral neck fracture S/P right hip [id number] plan recommendations per Dr. Bundy, weight bearing as tolerated ?PD?on Sinemet 2 tablet p.o. [address] times daily. Follows up with Dr. Cortes ?Factor V Leyden mutation/history of DVT?on Coumadin INR 2.3. Monitor INR daily. ?GI/DVT prophylaxis?pantoprazole/Coumadin. -Venous Duplex- chronic left LE DVT, no acute DVT. ?BPH-on tamsulosin ?Fall precautions ?Further medical management per hospitalist recommendation ?Follow-up with PCP, orthopedic surgery and neurology as outpatient.
[2018-12-17] MEDS: Tamsulosin HCl 0.4 MG Capsule 0.8 MG PO (16:50)
[2018-12-17 20:36] VITALS: BP 130/72; PULSE 75; RESP 18; TEMP 36.8; O2SAT 95
--- NOTE | 2018-12-18 01:30 | NURSING ---
Reviewed and agree with LPNs fims and handoff
[2018-12-18 05:00] VITALS: BMI 23.6
[2018-12-18 06:03] LABS: International Normalized Ratio 2.4; Prothrombin Time (Protime)PT. 26.4 SECONDS (11.7-14.9)
[2018-12-18] MEDS: Acetaminophen 500 MG Tablet 1000 MG PO ×2 (06:11→13:56)
[2018-12-18] MEDS: Carbidopa/Levodopa 25/100 Tablet PO ×2 (06:11→11:26)
[2018-12-18 07:00] VITALS: BP 123/67; PULSE 67; RESP 18; TEMP 36.9; O2SAT 94
[2018-12-18] MEDS: Hydrocortisone 2.5% Crm 1 APPLIC TOPICAL (09:06)
--- NOTE | 2018-12-18 10:01 | DCINST_ITS ---
- Discharge Diagnoses Current Active Problems: debility status post fall right hip femoral neck displaced fracture, status post ORIF/right hip hemiarthroplasty Reason(s) for Visit for Discharge Instructions: debility status post fall right hip femoral neck displaced fracture, status post ORIF/right hip hemiarthroplasty You will use the following diet at home:: Regular Your food should be the consistency of: Regular Discharge Activity: May Not Drive Call your doctor if your incision/area has: Continuous Slow Oozing, Sudden Increased Bleeding, Increased Pain/ Swelling, Increased Redness, Foul Smelling Discharge, Swelling at the incision site Call your doctor if you observe: Fever of 101 or Higher, Coldness, Increased Pain, Numbness or Tingling, Change in Color, Inability to urinate, Inability to have a bowel movement, Using more than one pad per hour, Shortness of breath, Dizziness, Fainting spells, Swelling in the ankles, Chest pain, Prolonged hiccoughing, Increased palpitations (irregular heartbeat), Calf discomfort, Uncontrolled pain Allergies/Adverse Reactions: Allergies No Known Allergies Allergy (Verified 12/09/18 15:46) Medications to take at Discharge Carbidopa/Levodopa [Carbidopa-Levodopa 25-100 Tab] 2 each PO TID 12/05/18 Carbidopa/Levodopa 25/100 [Sinemet 25/100] 2 tablet PO TIDAC 12/09/18 Tamsulosin HCl [Flomax] 0.8 mg PO DAILY@1730 capsule 12/18/18 Warfarin [Coumadin] 8 mg PO DAILY@1700 tablet 12/18/18 Primary Care Physician: Joss Heredia MD [Primary Care Provider] - Test Results: Test results from this visit will be discussed in further detail at your follow- up appointment, if applicable. Please Follow Up With: [facility] - Physical Therapy When: They will call to set up an appointment Please Follow Up With: Joss Heredia MD Please Follow Up With: Jeremiah Mcduffie DO When: F/U Neurology Dr. Cortes for PD in 1-2 weeks
--- NOTE | 2018-12-18 10:06 | PCM.RU.DC ---
Rehab Discharge Summary DATE OF ADMISSION: 12/09/18 DATE OF DISCHARGE: 12/18/18 (Patient leaving against medical advice) - Rehab Diagnosis debility status post fall right hip femoral neck displaced fracture, status post ORIF/right hip hemiarthroplasty. Subjective: No issues overnight. Care discussed with the nursing staff. - Physical Exam General: Alert HEENT: Normocephalic Neck: Supple Lungs: Normal air movement Cardiovascular: Normal S1, Normal S2 Abdomen: Bowel Sounds Present Extremities: No cyanosis Neurological: - - Cranial nerves II-XII grossly intact, Neuro grossly intact, Motor Exam 5/5 strength throughout, Muscle tone normal, Sensory exam intact to light touch and pain, Coordination normal, - - No tremors or rigidity at present, mild bradykinesia present Psych/Mental Status: Normal Affect Vital Signs Temp Pulse Resp BP Pulse Ox 98.5 F 67 18 123/67 H 94 12/18/18 07:00 12/18/18 07:00 12/18/18 07:00 12/18/18 07:00 12/18/18 07:00 Oxygen Delivery Method Room Air Weight: 82.8 kg Body Mass Index (BMI) 23.6 Intake and Output for Last 24 Hours 12/16/18 12/17/18 12/18/18 23:59 23:59 23:59 Intake Total 600 / 600 360 / 360 Balance 600 / 600 360 / 360 Laboratory Tests Past 24 Hrs 12/18/18 05:30 PT 26.4 H INR 2.4 Discharge Diet: - Discharge Activity: May Not Drive Call your doctor if your incision/area has: Continuous Slow Oozing, Sudden Increased Bleeding, Increased Pain/ Swelling, Increased Redness, Foul Smelling Discharge, Swelling at the incision site Call your doctor if you observe: Fever of 101 or Higher, Coldness, Increased Pain, Numbness or Tingling, Change in Color, Inability to urinate, Inability to have a bowel movement, Using more than one pad per hour, Shortness of breath, Dizziness, Fainting spells, Swelling in the ankles, Chest pain, Prolonged hiccoughing, Increased palpitations (irregular heartbeat), Calf discomfort, Uncontrolled pain Home Medications: Medications to take at Discharge RX: Carbidopa/Levodopa [Carbidopa-Levodopa 25-100 Tab] 2 each PO TID 12/05/18 RX: Carbidopa/Levodopa 25/100 [Sinemet 25/100] 2 tablet PO TIDAC 12/09/18 RX: Tamsulosin HCl [Flomax] 0.8 mg PO DAILY@1730 capsule 12/18/18 RX: Warfarin [Coumadin] 8 mg PO DAILY@1700 tablet 12/18/18 Primary Care Physician: Joss Heredia MD [Primary Care Provider] - Please Follow Up With: [facility] - Physical Therapy When: They will call to set up an appointment Please Follow Up With: Joss Heredia MD Please Follow Up With: Jeremiah Mcduffie DO When: F/U Neurology Dr. 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 Mcduffie on 12/07/2018, for greater than 3 hours therapy daily with the goal of returning back home at or near his prior level of functional independence. Patient was tolerating therapies well, but had some complaints the patient was not getting enough therapy through the day. Patient and were reassured that patient is getting at least 3 hours of therapy every day. Per patient he does not want to stay in the rehab for further therapy. But per PT/OT recommendation patient is not ready for discharge yet from the therapy standpoint of view and is at the fall risk. It was determined in the staff meeting that therapy did not feel that it was safe for the patient to be discharged at this time. At the end of discussion it was determined that patient would like to be discharged on 12/18/2018. Patient will be signing out AGAINST MEDICAL ADVICE at the time. Follow-up with PCP, orthopedic surgery and neurology as outpatient. Meaningful Use Info Meaningful Use Diagnoses (Choose all that apply): None applicable
--- NOTE | 2018-12-18 10:54 | PCM.PN.HOSP ---
Subjective: Patient with no acute events since last evaluation per self and per nursing report. Patient DVT ultrasound of his right lower extremity have been unremarkable and plain film of the knee unremarkable. He notes discomfort has lessened and has improved however still discomfort with activity. Discussed patient transition to outpatient therapies as patient insistent upon leaving AGAINST MEDICAL ADVICE. patient still intends to leave acute rehabilitation today and notes that his intention is to transition to home therapies. He states he has a good support group including family and his . Discussed fall precautions and concerns at length. Patient notes that he has follow-up with orthopedic surgery on Friday and will maintain his appropriate follow-up. Patient denies fevers, chills, nausea, emesis, abdominal pain, chest pain or dyspnea. Objective: Physical Examination: General: awake, alert, oriented x 3 and cooperative, NAD, notes lessened R knee discomfort since last examination. Skin: normal color, turgor, no icterus, cyanosis, status post right femoral neck fracture, incision intact. HEENT: AT/NC, EOMI, PERRLA, MMM. Lungs: CTA bilaterally, moderate effort, mild decrease BL bases, no rales, ronchi or wheezing. Heart: Regular rate and rhythm; no gallop, rub audible. Abdomen: soft, NTTP, ND, normal BS. Extremities: no cyanosis, clubbing, that is post mechanical fall, right femoral neck fracture, status post operative repair, less discomfort to palpation of right knee, improve range of motion, the calf which was similar to prior. Neurological: patient awake, alert, oriented x 3; cognitive function intact; pupils equally reactive to light and accomodation; cranial nerves II-XII grossly normal, moving all 4 extremities; however, improved right lower knee extension, strength moderately globally decreased secondary to her morbidities and recent surgical intervention. Psychiatric: affect appears normal, no acute evidence of depressive or anxiety feelings. Vitals/I&O's: Vital Signs Temp Pulse Resp BP Pulse Ox 98.5 F 67 18 123/67 H 94 12/18/18 07:00 12/18/18 07:00 12/18/18 07:00 12/18/18 07:00 12/18/18 07:00 Oxygen Delivery Method Room Air Weight: 182 lb 8.684 oz Body Mass Index (BMI) 23.6 Intake and Output for Last 24 Hours 0312/17/18 12/18/18 23:59 23:59 23:59 Intake Total 600 / 600 360 / 360 Balance 600 / 600 360 / 360 Laboratory Results 12/18/18 05:30: PT 26.4 H, INR 2.4 Current Medications Acetaminophen (Tylenol) 1,000 mg PO Q8 [facility] Last Admin: 12/18/18 06:11 Dose: 1,000 mg Bisacodyl (Dulcolax) 10 mg RECTAL .PRN X 1 PRN PRN Reason: Constipation Last Admin: 12/10/18 16:00 Dose: 10 mg Carbidopa/Levodopa (Sinemet) 2 tablet PO TIDAC [facility] Last Admin: 12/18/18 06:11 Dose: 2 tablet Hydrocortisone (Hytone) 1 applic TOPICAL BID [facility]; Protocol Last Admin: 12/18/18 09:06 Dose: 1 applicatio Hydroxyzine Pamoate (Vistaril Pamoate Capsule) 25 - 50 mg PO Q6H PRN PRN Reason: ANXIETY/AGITATION Last Admin: 12/14/18 20:09 Dose: 25 mg Lorazepam (Ativan) 0.5 mg PO QHS PRN PRN PRN Reason: INSOMNIA Last Admin: 12/17/18 20:26 Dose: 0.5 mg Magnesium Hydroxide (Milk Of Magnesia) 30 ml PO .PRN X 1 PRN PRN Reason: Constipation Menthol (Bengay Vanishing Scent) 1 applic TOPICAL 4X/DAY PRN PRN PRN Reason: PAIN Last Admin: 12/18/18 09:06 Dose: 1 applic Polyethylene Glycol (Miralax) 17 gm PO DAILY [facility] Last Admin: 12/18/18 09:07 Dose: Not Given Senna/Docusate Sodium (Senokot-S, Tara-Colace) 2 tablet PO BID [facility] Last Admin: 12/18/18 09:07 Dose: Not Given Tamsulosin HCl (Flomax) 0.8 mg PO DAILY@1730 [facility] Last Admin: 12/17/18 16:50 Dose: 0.8 mg Warfarin Sodium (Coumadin (Pbkc)) 8 mg PO DAILY@1700 [facility] Last Admin: 12/17/18 16:50 Dose: 8 mg Medical Necessity - Tobacco Use Smoking Status: Never smoker Tobacco Use: Non-smoker Assessment/Plan All Active Problems Closed right hip fracture (Acute) Venous hypertension, chronic, with ulcer and inflammation (Resolved) Venous ulcer of ankle (Resolved) The patient is a 68 y/o M w/ PMHx: Parkinson's Disease, 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 Mcduffie who presents to the [facility] on 12/09/18 for ongoing therapies. (1) General debility, s/p Recent R hip pain s/p mechanical fall w/ R Femoral Neck fracture: Recent admission for mechanical fall, Plain film noting R femoral neck fracture, OR 12/07/[address] Mcduffie, s/p Right hip hemiarthroplasty, PT and OT ongoing, fall precautions, continued on coumadin, INR 12/15/18 therapeutic 2.3 and continues to remain therapeutic, lovenox bridge discontinued once therapeutic range achieved. Despite conversations with Rehab staff, Dr. Ren and myself, patient insistent on leaving and transitioning to home/outpatient therapies. Discussed fall and safety concerns at length. (2) R Knee, RLE distal to Knee Pain, Acute: New onset, recent surgery, improved since last evaluation. DVT US unremarkable. Plain film of the knee without acute findings. Less edema since last evaluation. Planned follow-up with Orthopedic surgery this coming Friday. Encouraged patient to remain in acute rehabilitation; however, patient insistent on leaving. (3) History of DVT w/ Factor V Leiden Mutation Hx: Patient w/ history of x 2 w/ right lower extremity postphlebitic syndrome s/p prior IVC Filter on coumadin, continued on coumadin, INR 12/15/18 therapeutic 2.3 and continues to remain therapeutic, lovenox bridge discontinued once therapeutic range achieved. Requested patient have INR follow-up this coming Friday. (4) Parkinson's Disease: Continue home Sinemet regimen, fall precautions, PT, OT following w/ transition to home/outpatient therapies upon patient insistent. (5) Hx Prior CVA x 2: Notes prior CVA, deficits primarily memory and vision issues, continued on coumadin and therapeutic lovenox until therapeutic INR, not on statin, BP normal range, not on regimen. (6) DVT Prophylaxis: SCDs, continued Coumadin with INR monitoring. Requested patient have INR follow-up this coming Friday. Code Visit Inpatient E&M: 15414 Subs Hosp L2
--- NOTE | 2018-12-18 12:29 | CASEMGMT ---
Social Work [place] [facility] Jess[place] at [facility] and she states uncertain when walker can be delivered but it can be picked up at office anytime after 1pm. Order faxed to [facility]. Phone call to pt Mary and informed that she can chicken picker walk[place] [facility] and she is agreeable. Mary states she will be in to chicken picker pt when son is available to assist. SW met with pt in room and relayed information to pt about 's timing for d/c. Pt expressed understanding. No further SW needs at this time. MEGAN Purdy
[2018-12-18 14:23] VITALS: BMI 23.6
--- NOTE | 2018-12-18 14:24 | NURSING ---
Addendum entered by Donna Lucas 12/18/18 16:10: also aware to call PCP office to get recommendation on when to get patients INR rechecked next and aware of current lab level. Original Note: Patient, , and son verbalized understanding to discharge instructions. Family aware again of patient leaving AMA and patient requested to sign the form and she did for hospital record. Patient aware to have help at home with transfers and to not vogel to prevent falls and get up slowly. Patient denies pain.
[2018-12-18 14:25] VITALS: BP 123/67; PULSE 67; RESP 18; TEMP 36.9; O2SAT 94
== END 2018-12-18 14:25 | disposition left against medical advice (07) | DRG 560 ==
PROVIDERS: Internal Medicine; Admitting Provider Psychiatry & Neurology Neurology; Family Provider Family Medicine; PCP Family Medicine; Referring Provider Psychiatry & Neurology Neurology; Visit Provider Family Medicine
DX: S72.001D Fracture of unspecified part of neck of right femur, subsequent encounter for closed fracture with routine healing (principal); D68.51 Activated protein C resistance; G20 Parkinson's disease; W10.9XXD Fall (on) (from) unspecified stairs and steps, subsequent encounter; Z86.718 Personal history of other venous thrombosis and embolism; Z79.01 Long term (current) use of anticoagulants; G62.9 Polyneuropathy, unspecified; R33.9 Retention of urine, unspecified; Z86.73 Personal history of transient ischemic attack (TIA), and cerebral infarction without residual deficits; N40.1 Benign prostatic hyperplasia with lower urinary tract symptoms
CPT/HCPCS: 36415; 73562; 80048; 81001; 85027; 85610; 92507; 92523; 92526; 92610; 93970; 97110; 97116; 97162; 97166; 97530; 97535; 97802

== ENCOUNTER 2018-12-23 10:32 | Emergency (ER) | payer MEDICARE, OTHER, SELFPAY ==
[2018-12-21 10:02] VITALS: BMI 23.6
[2018-12-23 10:33] VITALS: BP 130/71; PULSE 76; RESP 17; TEMP 36.6; O2SAT 97; BMI 24.1
--- NOTE | 2018-12-23 10:54 | ED.VISSUMM ---
- ER Visit Summary Date of Service: 12/23/18 Chief Complaint: Hip pain History of Present Illness: The patient is a 68 M with right hip pain. The patient had a partial replacement on December [address] Mcduffie. He was discharged the following Friday. He has been taking tramadol every 6 hours, but is still having increasing pain in the right hip. He says the pain is so severe today he could not bear weight and he was referred to the emergency department. Denies trauma. He is concerned that something might be out of alignment. Denies fevers or systemic symptoms. Denies any issues at the wound site. Physical Examination: Afebrile and vital signs are unremarkable. Right hip is tender to palpation, but good range of motion and negative logroll. Incision site is clean, dry, and intact. He is neurovascular intact distally. Test Results: X-rays, labs pending. Emergency Department Course and Treatment: Patient treated with fentanyl while awaiting x-rays and laboratory studies. Will discuss with orthopedics. Labs all reassuring. X-ray showed postoperative changes with good alignment. Patient was discussed with Dr. Mcduffie. He had no further recommendations. I suspect the patient may be having postoperative pain. Will prescribe a short course of Percocet. He may take this instead of tramadol. He declined admission for pain control and possible placement. Patient will follow-up as an outpatient will return for any new or worsening issues. Precautions were given because of his medication, hip surgery, and Parkinson's disease. Treatment Plan: As above Disposition: Discharge Impression: 1. Right hip pain This note was generated with [employer] dictation software. It may contain incorrect words, spelling, and punctuation that were not noted in review of the chart prior to signing ED Disposition - Plan for ED Patient: Referrals: Joss Heredia MD [Primary Care Provider] -
[2018-12-23] MEDS: fentaNYL 100 MCG/2 ML Ampul 25 MCG IV (11:07)
--- NOTE | 2018-12-23 11:13 | RAD_ITS ---
STUDY: X-RAY - RIGHT HIP REASON FOR EXAM: Male, 68 years old. Increasing right hip pain. Prior hip replacement on 12/07/2018. TECHNIQUE: 2 views of the hip. COMPARISON: Comparison is made with prior radiograph dated December 07, 2018. FINDINGS: The patient is status post right total hip preplacement. There is good alignment. This is unchanged. Prior hip pinning of the left hip. Normal visualized superior and inferior pubic rami and ischial tuberosities. An IVC filter is seen. RAD/HIP, UNI W/ Pelvis 2-3 Views IMPRESSION: Status post right total hip replacement. There is good alignment. Electronically Signed: Lester Altamirano, at 11:32 EDT , Service support ,
[2018-12-23 11:33] LABS: International Normalized Ratio 2.2; Prothrombin Time (Protime)PT. 24.7 SECONDS (11.7-14.9)
[2018-12-23 11:36] LABS: Erythrocyte Sedimentation Rate 9 mm/hr (0-20)
[2018-12-23 11:37] LABS: Absolute Lymphocyte Count 1.33 X10^3/ul (0.83-4.51); Absolute Neutrophil Count 5.6 X10^3/uL (2.0-7.7); Basophil# 0.02 X10^3/uL; Basophil% 0.3 % (0-1); Eosinophils% 1.3 % (0-5); Hematocrit 41.9 % (40-54); Hemoglobin 13.5 g/dl (13.0-16.5); Lymphocyte # 1.33 X10^3/ul (4.0); Lymphocyte % 17.4 % (19-41); Mean Corp Hgb Conc 32.2 g/gl (32-36); Mean Corpuscular Hgb 31.4 pg (27.0-32.0); Mean Corpuscular Volume 97.4 fL (80-94); Mean Platelet Vol. 9.4 fl (6.2-12.0); Monocyte# 0.54 X10^3/uL; Monocyte% 7.1 % (0-10); Neutrophil # 5.63 X10^3/uL (2.7-7.7); Neutrophil % 73.6 % (47-70); Platelet Count 461 K/mm3 (150-450); RBC Distribution Width CV 13.6 % (11.6-14.6); RBC Distribution Width SD 48.4 fl (35.1-43.9); White Blood Count 7.6 K/mm3 (4.4-11.0)
[2018-12-23 11:38] LABS: Anion Gap 3 (5-15); BUN 23 mg/dL (7-18); BUN/Creat Ratio 27.3 RATIO (10-20); Calcium,Total 8.8 mg/dL (8.5-10.1); Chloride 104 mmol/L (98-107); Creatinine, Serum 0.84 mg/dL (0.70-1.30); EST Glomerular Filtration Rate 96 mL/min (>60); Est Glom Filt Rate - Afr Amer 116 mL/min (>60); Estimated Creatinine Clearance 97.86 ml/min; Glucose 101 mg/dL (74-106); Potassium 4.2 mmol/L (3.5-5.1); Sodium Level 138 mmol/L (136-145)
[2018-12-23 11:39] LABS: POSITIVE COUNT NO; POSITIVE DIFFERENTIAL NO; POSITIVE MORPHOLOGY NO
--- NOTE | 2018-12-23 11:44 | NURSING ---
DR PERES PAGEJuan
--- NOTE | 2018-12-23 12:07 | ED.DEP ---
ED Disposition - Plan for ED Patient: Instructions: Medication for Pain Prescriptions: Oxycodone HCl/Acetaminophen [Percocet 5/325] 1 tab PO Q6H PRN PRN 3 Days #10 tab PRN Reason: Pain Referrals: Jeremiah Mcduffie DO [STAFF PHYSICIAN] -
== END 2018-12-23 12:44 | disposition home or self-care (01) ==
PROVIDERS: Emergency Provider Emergency Medicine; Family Provider Family Medicine; PCP Family Medicine
DX: M25.551 Pain in right hip (principal); Z96.641 Presence of right artificial hip joint; G20 Parkinson's disease; F02.80 Dementia in other diseases classified elsewhere, unspecified severity, without behavioral disturbance, psychotic disturbance, mood disturbance, and anxiety; D68.51 Activated protein C resistance; Z86.73 Personal history of transient ischemic attack (TIA), and cerebral infarction without residual deficits; Z86.718 Personal history of other venous thrombosis and embolism; Z79.01 Long term (current) use of anticoagulants; Z79.899 Other long term (current) drug therapy
CPT/HCPCS: 73502; 80048; 85025; 85610; 85652; 86140; 96374; 99283; A4216

== ENCOUNTER → 2019-01-11 09:05 | Outpatient (CLI) | payer MEDICARE, OTHER, SELFPAY ==
[2018-12-23 10:33] VITALS: BMI 24.1
== END ==
PROVIDERS: Family Provider Family Medicine; PCP Family Medicine; Visit Provider Family Medicine
DX: I82.409 Acute embolism and thrombosis of unspecified deep veins of unspecified lower extremity (principal)
CPT/HCPCS: 36416; 85610

== ENCOUNTER → 2019-01-15 | Outpatient (CLI) | payer MEDICARE, OTHER, SELFPAY ==
[2018-12-23 10:33] VITALS: BMI 24.1
--- NOTE | 2019-01-15 13:50 | CT_ITS ---
STUDY: CT RIGHT KNEE WITHOUT CONTRAST REASON FOR EXAM: Male, 68 years old. Pain RADIATION DOSAGE (If Supplied By Facility): CTDIvol = ( 15.35 ) mGy, DLP = ( 481.63 ) mGycm TECHNIQUE: Transaxial CT imaging of the knee was performed. Coronal and sagittal images were reformatted. Individualized dose optimization techniques were used for this CT. COMPARISON: None. FINDINGS: There is a total knee replacement with satisfactory alignment. Orthopedic hardware causing artifact limiting some images.. There is trace suprapatellar fluid. The quadriceps tendon and infrapatellar tendon appear mildly thickened. Normal Hoffa's fat pad. Vascular calcifications. CT/Extremity Lower without Contra IMPRESSION: Status post total replacement of the knee. Trace suprapatellar fluid. Electronically Signed: Sergio Yoo DO at 8:29 EDT Tel [phone], Service support ,
== END | disposition home or self-care (01) ==
LOC: CT 13:48
PROVIDERS: Family Provider Family Medicine; PCP Family Medicine; Referring Provider Physician Assistant; Visit Provider Physician Assistant
DX: Z96.651 Presence of right artificial knee joint (principal)
CPT/HCPCS: 73700

== ENCOUNTER → 2019-01-19 | Outpatient (CLI) | payer MEDICARE, OTHER, SELFPAY ==
[2018-12-23 10:33] VITALS: BMI 24.1
[2019-01-19 11:54] LABS: Erythrocyte Sedimentation Rate 5 mm/hr (0-20)
[2019-01-19 11:57] LABS: Absolute Lymphocyte Count 1.82 X10^3/ul (0.83-4.51); Absolute Neutrophil Count 3.9 X10^3/uL (2.0-7.7); Basophil# 0.01 X10^3/uL; Basophil% 0.2 % (0-1); Eosinophils% 1.6 % (0-5); Hematocrit 45.2 % (40-54); Hemoglobin 14.6 g/dl (13.0-16.5); Lymphocyte # 1.82 X10^3/ul (4.0); Lymphocyte % 28.7 % (19-41); Mean Corp Hgb Conc 32.3 g/gl (32-36); Mean Corpuscular Hgb 30.8 pg (27.0-32.0); Mean Corpuscular Volume 95.4 fL (80-94); Mean Platelet Vol. 10.5 fl (6.2-12.0); Monocyte# 0.49 X10^3/uL; Monocyte% 7.7 % (0-10); Neutrophil % 61.5 % (47-70); POSITIVE COUNT NO; POSITIVE DIFFERENTIAL NO; POSITIVE MORPHOLOGY NO; Platelet Count 194 K/mm3 (150-450); RBC Distribution Width CV 13.9 % (11.6-14.6); RBC Distribution Width SD 47.2 fl (35.1-43.9); Red Blood Count 4.74 M/mm3 (4.6-6.2); White Blood Count 6.3 K/mm3 (4.4-11.0)
[2019-01-19 12:30] LABS: CRP 7.77 mg/L (0.0-3.0)
== END | disposition home or self-care (01) ==
LOC: LAB 11:28
PROVIDERS: Family Provider Family Medicine; PCP Family Medicine; Referring Provider Physician Assistant; Visit Provider Physician Assistant
DX: Z96.641 Presence of right artificial hip joint (principal)
CPT/HCPCS: 36415; 85025; 85652; 86140

== ENCOUNTER → 2019-01-20 | Outpatient (CLI) | payer MEDICARE, OTHER, SELFPAY ==
[2018-12-23 10:33] VITALS: BMI 24.1
--- NOTE | 2019-01-20 09:25 | NM_ITS ---
CLINICAL: 68-year-old male with reported history of painful right hip arthroplasty operated November 2018, painful right knee prosthesis operated June 2013. LIMITED 99m Tc MDP THREE PHASE BONE SCINTIGRAPHY COMPARISON: CT of the right knee report 01/15/2019, plain film radiograph report right hip 12/23/2018, plain film radiograph report right knee 12/14/2018 FINDINGS: Following the intravenous administration of 25.6 mCi of 99m Tc MDP, three-phase bone acquisitions of the pelvis and late projections of the knee articulations reveal: 1. The flow and immediate static blood pool acquisitions demonstrate arterial and venous phase hyperemia manifest in the region of the trochanteric and femoral components of the symptomatic recently operated right hip prosthesis. 2. Delayed images depict persistent increased tracer distribution noted in the trochanteric and femoral components of the symptomatic right hip arthroplasty corresponding to the flow and blood pool changes. 3. Enhanced tracer concentration is defined in the medial and lateral femoral-tibial components of the painful right knee prosthesis. 4. An increase in uptake is noted in the patellofemoral compartments of both knees, lateral tibial compartment of the left knee articulation. 5. The remaining limited skeletal structures are scintigraphically unremarkable. NM/Bone Scan Three Phase IMPRESSION: 1. The increase in radiopharmaceutical concentration identified in the trochanteric and femoral components of the right hip arthroplasty are consistent with postsurgical changes in view of the recent operative intervention. If an infectious etiology is a diagnostic consideration, correlation with labeled leukocyte imaging is recommended. 2. Facilitated uptake demonstrated in the femoral and tibial components of the symptomatic right knee prosthesis is consistent with a high likelihood of loosening in the setting of operative intervention > 2 years prior to the current presentation. Labeled leukocyte imaging may be of benefit if septic prosthetic loosening is suspected. 3. Degenerative arthritis appears expressed in the patellofemoral compartments of both knees, lateral tibial compartment of the left knee. Electronically Signed: Rolf Walker DO at 9:49 EDT Tel , Service support ,
== END | disposition home or self-care (01) ==
LOC: NM 09:24
PROVIDERS: Family Provider Family Medicine; PCP Family Medicine; Referring Provider Physician Assistant; Visit Provider Physician Assistant
DX: Z96.641 Presence of right artificial hip joint (principal)
CPT/HCPCS: 78315

== ENCOUNTER 2019-05-21 16:42 | Emergency (ER) | payer OTHER, MEDICARE, SELFPAY ==
[2019-05-21 16:45] VITALS: BP 150/87; PULSE 79; RESP 16; TEMP 37; O2SAT 93; BMI 24.6
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
[2019-05-21 19:09] VITALS: BP 141/78
== END 2019-05-21 19:09 | disposition home or self-care (01) ==
PROVIDERS: Emergency Provider Emergency Medicine; Family Provider Family Medicine; PCP Family Medicine
DX: S00.12XA Contusion of left eyelid and periocular area, initial encounter (principal); S00.83XA Contusion of other part of head, initial encounter; S16.1XXA Strain of muscle, fascia and tendon at neck level, initial encounter; V49.49XA Driver injured in collision with other motor vehicles in traffic accident, initial encounter; Y93.9 Activity, unspecified; Y92.9 Unspecified place or not applicable; D68.51 Activated protein C resistance; I87.2 Venous insufficiency (chronic) (peripheral); G20 Parkinson's disease; Z86.718 Personal history of other venous thrombosis and embolism; Z86.73 Personal history of transient ischemic attack (TIA), and cerebral infarction without residual deficits; Z79.01 Long term (current) use of anticoagulants; Z79.899 Other long term (current) drug therapy
CPT/HCPCS: 70450; 99285

== ENCOUNTER → 2019-06-07 18:02 | Outpatient (CLI) | payer OTHER, MEDICARE, SELFPAY ==
[2019-05-21 16:45] VITALS: BMI 24.6
== END ==
PROVIDERS: Family Provider Family Medicine; PCP Family Medicine; Visit Provider Dermatology
DX: B96.89 Other specified bacterial agents as the cause of diseases classified elsewhere (principal); I87.2 Venous insufficiency (chronic) (peripheral); B35.3 Tinea pedis; L84 Corns and callosities
CPT/HCPCS: 87070; 87077; 87186; 87205

== ENCOUNTER 2019-06-15 11:00 | Outpatient (RCR) | payer MEDICARE, OTHER, SELFPAY ==
[2019-06-08 13:28] VITALS: BP 136/77; PULSE 73; RESP 18; TEMP 36.4; BMI 23.8
[2019-06-08 14:11] VITALS: BMI 23.8
--- NOTE | 2019-06-08 14:28 | PCM.WC.HP ---
(1) Ulcer of right foot Status: Chronic Current Visit: Yes Qualifiers: Non-pressure ulcer stage: with fat layer exposed Qualified Code(s): L97.512 - Non-pressure chronic ulcer of other part of right foot with fat layer exposed Code(s): L97.519 - Non-pressure chronic ulcer of other part of right foot with unspecified severity (2) Swelling of right lower extremity Status: Chronic Current Visit: Yes Code(s): M79.89 - Other specified soft tissue disorders (3) Edema leg Status: Chronic Current Visit: Yes Code(s): R60.0 - Localized edema (4) Parkinsons disease Status: Chronic Current Visit: No Code(s): G20 - Parkinson's disease (5) History of DVT (deep vein thrombosis) Status: Chronic Current Visit: No Code(s): Z86.718 - Personal history of other venous thrombosis and embolism (6) Factor V Leiden mutation Status: Chronic Current Visit: No Code(s): D68.51 - Activated protein C resistance (7) Venous hypertension, chronic, with inflammation Status: Chronic Current Visit: No Qualifiers: Code(s): I87.329 - Chronic venous hypertension (idiopathic) with inflammation of unspecified lower extremity (8) Varicose veins with inflammation Status: Chronic Current Visit: No Code(s): I83.10 - Varicose veins of unspecified lower extremity with inflammation (9) Venous hypertension, chronic, with ulcer and inflammation Status: Resolved Current Visit: No Qualifiers: Code(s): I87.339 - Chronic venous hypertension (idiopathic) with ulcer and inflammation of unspecified lower extremity (10) Chronic venous insufficiency Status: Chronic Current Visit: Yes (11) History of ulcer of lower extremity Status: Chronic Current Visit: Yes Code(s): Z87.2 - Personal history of diseases of the skin and subcutaneous tissue (12) Postphlebitic syndrome with inflammation Status: Chronic Current Visit: Yes Code(s): I87.029 - Postthrombotic syndrome with inflammation of unspecified lower extremity History of Present Illness Date of Service: 06/08/19 Chief Complaint: Ulceration of the base of the right second toe History of Wound: This is a 69 year-old male who presented with an ulceration on the dorsum of the right foot, near the base of the right second toe. Has been present for approximately 3 weeks. The patient experiences chronic swelling in his right lower extremity. He has a history of chronic venous insufficiency, postphlebitic syndrome with inflammation, varicose veins with inflammation, etc. He has been previously advised to elevate his lower extremities frequently, avoid idle standing and sitting, remain active, and to wear graduated compression stockings on a daily basis. However, the patient has been noncompliant with the recommended measures. He claims to sleep on a flat mattress at night. He is active for his age. 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 He typically wears work boots each day, which often become hot and sweaty securely in the summer months. In April 2013, the patient underwent endovenous laser ablation of the right great saphenous vein, the right small saphenous vein, and the right accessory saphenous vein. He has previously been treated for ulcerations near the right medial malleolus and on the dorsum of the right second toe. A noninvasive lower extremity arterial study performed in March 2018 revealed no evidence of significant arterial occlusive disease in the lower extremities. Operatory studies from November 2018 have been reviewed, with the following results: White blood count 6.3, hemoglobin 14.6, hematocrit 45.2, platelets 194,000, PT 24.0, INR 2.1, sodium 138, potassium 4.2, chloride 104, BUN 23, creatinine 0.84, glucose 101, calcium 8.8. 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) Varicose veins with ulcer and inflammation (Chronic) Chronic venous insufficiency (Chronic) Venous ulcer of right lower extremity with varicose veins (Chronic) History of ulcer of lower extremity (Chronic) Postphlebitic syndrome with inflammation (Chronic) Ulcer, pressure (Chronic) Surgical History: - - Patient underwent endovenous laser ablation of the right great saphenous vein, the right small saphenous vein, the right accessory saphenous vein on May 04, 2013, right hand surgery, left hip fracture surgery, right total knee replacement, IVC filter placement, open reduction internal fixation of the right hip fracture in November 2018. Allergies/Adverse Reactions: Allergies No Known Allergies Allergy (Verified 06/08/19 13:50) Home Medications: Ambulatory Orders Medication Instructions Recorded Carbidopa/Levodopa 25/100 [Sinemet 2 tablet PO TIDAC 12/09/18 25/100] Tamsulosin HCl [Flomax] 0.8 mg PO DAILY@1730 capsule 12/18/18 Warfarin [Coumadin] 8 mg PO DAILY@1700 tablet 12/18/18 tramadol 50 mg tablet 50 mg PO Q6H PRN #50 tab 12/21/18 - Family History Paternal No pertinent history - Patient father with no market history, at age 92, no diabetes, heart disease, cancer history. Maternal Heart Disease - Patient at age 72 secondary to complications from [place], coronary disease. Social History: The patient is a dairy manufacturing technologist. Lives: Spouse/ Significant Other Smoking Status: Never smoker Tobacco Use: Non-smoker Drugs: None Review of Systems Constitutional: Denies: Chills, Fever, Weight Change Eyes: Denies: Pain, Vision Change HEENT: Denies: Difficulty Hearing, Difficulty Swallowing, Sinus Congestion Cardiovascular: Denies: Chest Pain, Palpitations Respiratory: Denies: Cough, Shortness of Breath Gastrointestinal: Denies: Diarrhea, Nausea, Vomiting Genitourinary: Denies: Dysuria, Hematuria Endocrine: Denies: Heat/ Cold Intolerance, Polydipsia, Polyuria Hematologic/ Lymphatic: Denies: Easy Bruising, Easy Bleeding - Physical Exam Vital Signs Temp Pulse Resp BP 97.6 F L 73 18 136/77 H 06/08/19 13:28 06/08/19 13:28 06/08/19 13:28 06/08/19 13:28 General: Alert, Oriented x3, Cooperative, No apparent distress, Well developed, Well nourished HEENT: Atraumatic, PERRLA, EOMI, Normocephalic Oral: Moist Mucosa Neck: No JVD, Negative Carotid Bruits, Negative Hepatojugular Reflux, No Nuchal Rigidity, Trachea Midline Lungs: Clear to auscultation, Normal air movement, No rhonchi, No wheeze, No rales Cardiovascular: Regular rate, Regular Rhythm, Normal S1, Normal S2, No murmurs Abdomen: Soft, Non Tender, Non-Distended Extremities: No clubbing, No cyanosis, No Calf Tenderness, - - Swelling and edema are noted in the right lower extremity and foot. Ulceration is noted on the dorsum of the right foot, near the base of the right second toe. Dimensions are documented elsewhere. There is a mild amount of bioburden. There is no obvious sign of infection or cellulitis. Skin: No rashes Wound Measurements and Assessment WC - Nurse 1 - General Ulcer Measurement Start: 06/08/19 13:28 Freq: Status: Active Protocol: Activity Type Activity Date Activity User E-Sign Co-Sign Detail Recorded Client Recorded Date Recorded By Document 06/08/19 13:28 DL [id number] 06/08/19 13:46 DL 06/08/19 13:28 Wound Center Nurse 1 [Ulcer Assessment] #17 R 2nd toe -Current Size (cm) - Length 1.5 -Current Size (cm) - Width 1.1 -Current Size (cm) - Depth 0.2 -Total Square Cm 1.65 -Photo Taken Yes -Classification - Thickness Full Thickness without Exposed Support Structure -Exudate Amt Small -Exudate Type Serosanguineous -Wound Margin Thickened -Granulation Amt Medium (34-66%) -Granulation Quality Red -Necrosis Amt Medium (34-66%) -Necrotic Tissue Type Adherent Slough -Structure Exposed N/A -Texture (Tara-wound Skin Appearance) Localized Edema ,Scarring -Moisture (Tara-wound Skin Appearance Weeping ) -Color (Tara-wound Skin Appearance) Erythema -Temperature (Tara-wound Skin No Abnormality Appearance) (Pt Warm) -Tenderness on Palpation (Tara-wound No Skin Appearance) -Ulcer Cleansing Wound Cleanser -Foul Odor after Cleansing No -Anesthetic Used 4% Lidocaine Solution [Edema Assessment] -Right Calf (cm) 41.1 -Right Ankle (cm) 25 -Left Calf (cm) 37 -Left Ankle (cm) 21 WC - Nurse 2 - General Ulcer CM Notes Start: 06/08/19 13:28 Freq: Status: Active Protocol: Activity Type Activity Date Activity User E-Sign Co-Sign Detail Recorded Client Recorded Date Recorded By Document 06/08/19 14:12 MW [id number] 06/08/19 14:24 MW 06/08/19 14:12 Wound Center Nurse 2 [Procedure/Treatment] #17 R 2nd toe -Time 14:15 -Correct Patient Yes -Correct Side, Site, Position Yes -Correct Procedure Yes -Procedure Performed Yes -Type of Procedure Debridement -Clinical Debridement Subcutaneous -Post Debridement Size (cm) - Length 2.2 -Post Debridement Size (cm) - Width 1.1 -Post Debridement Size (cm) - Depth 0.2 -Total Square Cm 2.42 -Wound/Ulcer Outcome Not Healed -Ulcer Cleansing Rinsed/ Irrigated with Saline -Foul Odor after Cleansing No -Bioengineered Tissue No -Bleeding Controlled with Pressure -Offloading No -Treatment Response Procedure Tolerated Well [See Physician Procedure note for Specifics] Pain Scale: 0-10 Numeric [Pain] -Is Patient Pain Free? Yes Neurological: Cranial nerves II-XII grossly intact Psych/Mental Status: Normal Affect, Appropriate, Alert and oriented to time, place, person, mood and affect Debridement Note Post-Debridement Measurements/Treatment WC - Nurse 2 - General Ulcer CM Notes Start: 06/08/19 13:28 Freq: Status: Active Protocol: Activity Type Activity Date Activity User E-Sign Co-Sign Detail Recorded Client Recorded Date Recorded By Document 06/08/19 14:12 [id number] 06/08/19 14:24 06/08/19 14:12 Wound Center Nurse 2 #17 R 2nd toe -Time 14:15 -Correct Patient Yes -Correct Side, Site, Position Yes -Correct Procedure Yes -Procedure Performed Yes -Type of Procedure Debridement -Clinical Debridement Subcutaneous -Post Debridement Size (cm) - Length 2.2 -Post Debridement Size (cm) - Width 1.1 -Post Debridement Size (cm) - Depth 0.2 -Total Square Cm 2.42 -Wound/Ulcer Outcome Not Healed -Ulcer Cleansing Rinsed/ Irrigated with Saline -Foul Odor after Cleansing No -Bioengineered Tissue No -Bleeding Controlled with Pressure -Offloading No -Treatment Response Procedure Tolerated Well Pain Scale: 0-10 Numeric Is Patient Pain Free? Yes Laterality: Right - Dorsal foot Type of Debridement: Excisional debridement Anesthesia Used: 5% Lidocaine Gel Depth: Down to and including healthy tissue, in the subcutaneous layer Percentage of wound debrided: 100 Instrument Used: 3mm curette Tissue Removed: Bioburden and nonviable tissue Severity: Fat Layer Exposed Amount of bleeding with debridement: Mild Bleeding Controlled with: Compression and gauze Patient tolerated procedure well Assessment/Plan Active Problems Swelling of right lower extremity (Chronic) Edema leg (Chronic) Ulcer of right foot (Chronic) Chronic venous insufficiency (Chronic) History of ulcer of lower extremity (Chronic) Postphlebitic syndrome with inflammation (Chronic) Assessment: This is a 69-year-old male with a long-standing history of chronic venous disease. He presented with an ulceration on the dorsum of the right foot, near the base of the right second toe. This may be pressure related, and likely due to ill fitted footwear. Offloading measures are to be implemented. These measures have been discussed with the patient. Alternative footwear may be necessary. Recommendations will follow below. Plan: Debridement done as documented above. Procedure was well-tolerated. Offloading measures are to be implemented. It may be necessary to refer to the prosthetists to assure that the patient's boots and foot wear fit appropriately. To implement the use of Elma topically, which will be changed on a daily basis. Adequate nutritional intake has been recommended. Patient has been advised to elevate his lower extremities as much as possible. The means by which this is to be accomplished has been discussed. He is to continue sleeping on a flat mattress at night. Ultimately, we will implement the use of compression of some type. Initially, however, we will obtain a noninvasive lower extremity arterial study to assess the patient's arterial status. Patient is to return in 1 week for reassessment. He is to avoid idle sitting and standing. Activity has been encouraged. The patient is not a smoker. Influenza vaccine was not administered today. The patient weighs 185 pounds. He stands 6 feet 2 inches tall. His BMI is 23.8, which is normal.
--- NOTE | 2019-06-11 10:09 | ART_ITS ---
Reason For Study: PAD Procedure A bilateral lower extremity continuous wave Doppler with analog waveform analysis,segmental pressures,and ankle brachial indexes without exercise. Left Segmental Pressures Left brachial= 138mmHg. Left posterior tibial artery = >255mmHg. Left dorsalis pedis artery = 210mmHg. Left digit = 105 mmHg. The left dorsalis pedis waveforms are triphasic. The left posterior tibial artery waveforms are triphasic. Right Segmental Pressures Right brachial= 131mmHg. Right posterior tibial artery = 173mmHg. Right dorsalis pedis artery = 217mmHg. Right digit = 106 mmHg. The right dorsalis pedis waveforms are triphasic. The right posterior tibial artery waveforms are triphasic. Indices The right ankle brachial index by the dorsalis pedis is 1.57. The right ankle brachial index by the posterior tibial artery is 1.25. The right digital-brachial index is 0.77. The left ankle brachial index by the dorsalis pedis is 1.52. The left ankle brachial index by the posterior tibial artery is N/C. The left digital-brachial index is 0.76. Interpretation Summary Triphasic Doppler waveforms are noted at ankle level bilaterally. Pulse-volume recordings appear satisfactory bilaterally. Resting ankle-brachial indices are supra-normal bilaterally. Digital- brachial indices are normal bilaterally. There is evidence of arterial calcification at ankle level bilaterally. However, there is no evidence of significant arterial occlusive disease in the lower extremities bilaterally. Ordering Physician: Tip Liz Referring Physician: Joss Heredia Performed By: Lorene Saleh RVT, RDCS
[2019-06-15 11:11] VITALS: BP 124/75; PULSE 71; RESP 16; BMI 23.8
--- NOTE | 2019-06-15 11:44 | HP.PCM_ITS ---
(1) Ulcer of right foot Status: Chronic Current Visit: Yes Qualifiers: Non-pressure ulcer stage: with fat layer exposed Qualified Code(s): L97.512 - Non-pressure chronic ulcer of other part of right foot with fat layer exposed Code(s): L97.519 - Non-pressure chronic ulcer of other part of right foot with unspecified severity (2) Swelling of right lower extremity Status: Chronic Current Visit: Yes Code(s): M79.89 - Other specified soft tissue disorders (3) Edema leg Status: Chronic Current Visit: Yes Code(s): R60.0 - Localized edema (4) Parkinsons disease Status: Chronic Current Visit: No Code(s): G20 - Parkinson's disease (5) History of DVT (deep vein thrombosis) Status: Chronic Current Visit: No Code(s): Z86.718 - Personal history of other venous thrombosis and embolism (6) Factor V Leiden mutation Status: Chronic Current Visit: No Code(s): D68.51 - Activated protein C resistance (7) Venous hypertension, chronic, with inflammation Status: Chronic Current Visit: No Qualifiers: Code(s): I87.329 - Chronic venous hypertension (idiopathic) with inflammation of unspecified lower extremity (8) Varicose veins with inflammation Status: Chronic Current Visit: No Code(s): I83.10 - Varicose veins of unspecified lower extremity with inflammation (9) Venous hypertension, chronic, with ulcer and inflammation Status: Resolved Current Visit: No Qualifiers: Code(s): I87.339 - Chronic venous hypertension (idiopathic) with ulcer and inflammation of unspecified lower extremity (10) Chronic venous insufficiency Status: Chronic Current Visit: Yes (11) History of ulcer of lower extremity Status: Chronic Current Visit: Yes Code(s): Z87.2 - Personal history of diseases of the skin and subcutaneous tissue (12) Postphlebitic syndrome with inflammation Status: Chronic Current Visit: Yes Code(s): I87.029 - Postthrombotic syndrome with inflammation of unspecified lower extremity History of Present Illness Date of Service: 06/15/19 Chief Complaint: Ulceration of the base of the right second toe History of Wound: This is a 69 year-old male who presented with an ulceration on the dorsum of the right foot, near the base of the right second toe. Has been present for approximately 3 weeks. The patient experiences chronic swelling in his right lower extremity. He has a history of chronic venous insufficiency, postphlebitic syndrome with inflammation, varicose veins with inflammation, etc. He has been previously advised to elevate his lower extremities frequently, avoid idle standing and sitting, remain active, and to wear graduated compression stockings on a daily basis. However, the patient has been noncompliant with the recommended measures. He claims to sleep on a flat mattress at night. He is active for his age. 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 He typically wears work boots each day, which often become hot and sweaty securely in the summer months. In April 2013, the patient underwent endovenous laser ablation of the right great saphenous vein, the right small saphenous vein, and the right accessory saphenous vein. He has previously been treated for ulcerations near the right medial malleolus and on the dorsum of the right second toe. A noninvasive lower extremity arterial study performed in March 2018 revealed no evidence of significant arterial occlusive disease in the lower extremities. Operatory studies from November 2018 have been reviewed, with the following results: White blood count 6.3, hemoglobin 14.6, hematocrit 45.2, platelets 194,000, PT 24.0, INR 2.1, sodium 138, potassium 4.2, chloride 104, BUN 23, creatinine 0.84, glucose 101, calcium 8.8. 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) Varicose veins with ulcer and inflammation (Chronic) Chronic venous insufficiency (Chronic) Venous ulcer of right lower extremity with varicose veins (Chronic) History of ulcer of lower extremity (Chronic) Postphlebitic syndrome with inflammation (Chronic) Ulcer, pressure (Chronic) Surgical History: - - Patient underwent endovenous laser ablation of the right great saphenous vein, the right small saphenous vein, the right accessory saphenous vein on May 04, 2013, right hand surgery, left hip fracture surgery, right total knee replacement, IVC filter placement, open reduction internal fixation of the right hip fracture in November 2018. Allergies/Adverse Reactions: Allergies No Known Allergies Allergy (Verified 06/08/19 13:50) Home Medications: Ambulatory Orders Medication Instructions Recorded Carbidopa/Levodopa 25/100 [Sinemet 2 tablet PO TIDAC 12/09/18 25/100] Tamsulosin HCl [Flomax] 0.8 mg PO DAILY@1730 capsule 12/18/18 Warfarin [Coumadin] 8 mg PO DAILY@1700 tablet 12/18/18 tramadol 50 mg tablet 50 mg PO Q6H PRN #50 tab 12/21/18 - Family History Paternal No pertinent history - Patient father with no market history, at age 92, no diabetes, heart disease, cancer history. Maternal Heart Disease - Patient at age 72 secondary to complications from [place], coronary disease. Lives: Spouse/ Significant Other Smoking Status: Never smoker Tobacco Use: Non-smoker Drugs: None Review of Systems Constitutional: Denies: Chills, Fever, Weight Change Eyes: Denies: Pain, Vision Change HEENT: Denies: Difficulty Hearing, Difficulty Swallowing, Sinus Congestion Cardiovascular: Denies: Chest Pain, Palpitations Respiratory: Denies: Cough, Shortness of Breath Gastrointestinal: Denies: Diarrhea, Nausea, Vomiting Genitourinary: Denies: Dysuria, Hematuria Endocrine: Denies: Heat/ Cold Intolerance, Polydipsia, Polyuria Hematologic/ Lymphatic: Denies: Easy Bruising, Easy Bleeding - Physical Exam Vital Signs Temp Pulse Resp BP 97.6 F L 71 16 124/75 H 06/08/19 13:28 06/15/19 11:11 06/15/19 11:11 06/15/19 11:11 General: Alert, Oriented x3, Cooperative, No apparent distress, Well developed, Well nourished HEENT: Atraumatic, PERRLA, EOMI, Normocephalic Oral: Moist Mucosa Neck: No JVD Lungs: Normal air movement Abdomen: Non-Distended Extremities: No clubbing, No cyanosis, No Calf Tenderness, - - Slight swelling persists in the right lower extremity. Chronic venous changes are noted in the right lower extremity, namely mild hyperpigmentation and lipodermatosclerosis. Scattered varicosities are noted. The ulceration on the dorsum of the right second toe and foot persists, though it appears to be somewhat smaller in size. The base of the ulceration demonstrates some bioburden. There is no obvious sign of infection or cellulitis. Dimensions are documented elsewhere. Skin: No rashes Wound Measurements and Assessment WC - Nurse 1 - General Ulcer Measurement Start: 06/08/19 13:28 Freq: Status: Active Protocol: Activity Type Activity Date Activity User E-Sign Co-Sign Detail Recorded Client Recorded Date Recorded By Document 06/15/19 11:[address] [facility] [id number] 06/15/19 11:[address] [facility] 06/15/19 11:11 Wound Center Nurse 1 [Ulcer Assessment] #17 R 2nd toe -Combined with other wound No -Current Size (cm) - Length 2.1 -Current Size (cm) - Width 2.9 -Current Size (cm) - Depth 0.2 -Total Square Cm 6.09 -Photo Taken No -Epithelialization None Present -Tunneling No -Undermining/Tunneling No -Circular Undermining No -Exudate Amt Small -Exudate Type Serosanguineous -Wound Margin Distinct, Outline Attached -Granulation Amt Medium (34-66%) -Granulation Quality Pale,Red -Slough/Fibrin Yes -Necrosis Amt Medium (34-66%) -Necrotic Tissue Type Adherent Slough -Texture (Tara-wound Skin Appearance) Assessed, Scarring -Moisture (Tara-wound Skin Appearance Assessed, ) Maceration -Color (Tara-wound Skin Appearance) Assessed, Erythema -Temperature (Tara-wound Skin No Abnormality Appearance) (Pt Warm) -Tenderness on Palpation (Tara-wound No Skin Appearance) -Ulcer Cleansing soap and water -Foul Odor after Cleansing No -Anesthetic Used 5% Lidocaine Gel [Edema Assessment] -Lower Limb Edema Present Yes -Left Calf (cm) 41.6 -Left Ankle (cm) 25 Musculoskeletal: No Muscle Wasting Neurological: Cranial nerves II-XII grossly intact, Neuro grossly intact Psych/Mental Status: Normal Affect, Appropriate, Alert and oriented to time, place, person, mood and affect Debridement Note Post-Debridement Measurements/Treatment WC - Nurse 2 - General Ulcer CM Notes Start: 06/08/19 13:28 Freq: Status: Active Protocol: Activity Type Activity Date Activity User E-Sign Co-Sign Detail Recorded Client Recorded Date Recorded By Document 06/08/19 14:12 MW [id number] 06/08/19 14:24 MW 06/08/19 14:12 Wound Center Nurse 2 #17 R 2nd toe -Time 14:15 -Correct Patient Yes -Correct Side, Site, Position Yes -Correct Procedure Yes -Procedure Performed Yes -Type of Procedure Debridement -Clinical Debridement Subcutaneous -Post Debridement Size (cm) - Length 2.2 -Post Debridement Size (cm) - Width 1.1 -Post Debridement Size (cm) - Depth 0.2 -Total Square Cm 2.42 -Wound/Ulcer Outcome Not Healed -Ulcer Cleansing Rinsed/ Irrigated with Saline -Foul Odor after Cleansing No -Bioengineered Tissue No -Bleeding Controlled with Pressure -Offloading No -Treatment Response Procedure Tolerated Well Pain Scale: 0-10 Numeric Is Patient Pain Free? Yes Laterality: Right - Second toe, dorsum Type of Debridement: Excisional debridement Anesthesia Used: 5% Lidocaine Gel Depth: Down to and including healthy tissue, in the subcutaneous layer Percentage of wound debrided: 100 Instrument Used: 7mm curette Tissue Removed: Bioburden and nonviable tissue Severity: Fat Layer Exposed Amount of bleeding with debridement: Mild Bleeding Controlled with: Compression and gauze Patient tolerated procedure well Assessment/Plan Active Problems Swelling of right lower extremity (Chronic) Edema leg (Chronic) Ulcer of right foot (Chronic) Chronic venous insufficiency (Chronic) History of ulcer of lower extremity (Chronic) Postphlebitic syndrome with inflammation (Chronic) Assessment: This is a 69-year-old male with a long-standing history of chronic venous disease. He presented with an ulceration on the dorsum of the right foot, near the base of the right second toe. This may be pressure related, and likely due to ill fitted footwear. Offloading measures are to be implemented. These measures have been discussed with the patient. Alternative footwear may be necessary. Recommendations will follow below. Plan: Debridement done as documented above. Procedure was well-tolerated. Offloading measures are to be implemented. We are to refer the patient to [facility] to assure appropriately fitted footwear for offloading purposes. We are to continue the use of Elma topically, which will be changed on a daily basis. Adequate nutritional intake has been recommended. Patient has been advised to elevate his lower extremities as much as possible. The means by which this is to be accomplished has been discussed. He is to continue sleeping on a flat mattress at night. Venous duplex examination, performed on 06/11/19, though no evidence of significant arterial occlusive disease. Therefore, we are to implement the use of graduated compression stockings of 20 to 30 mmHg compression, for which a prescription has been issued. Patient is to return in 1 week for reassessment. He is to avoid idle sitting and standing. Activity has been encouraged. The patient is not a smoker. Influenza vaccine was not administered today. The patient weighs 185 pounds. He stands 6 feet 2 inches tall. His BMI is 23.8, which is normal.
== END 2019-06-21 23:59 ==
LOC: WC 11:00
PROVIDERS: Family Provider Family Medicine; PCP Family Medicine; Referring Provider Surgery; Visit Provider Surgery
DX: L97.512 Non-pressure chronic ulcer of other part of right foot with fat layer exposed (principal); R60.0 Localized edema; M79.89 Other specified soft tissue disorders; I83.10 Varicose veins of unspecified lower extremity with inflammation; I87.029 Postthrombotic syndrome with inflammation of unspecified lower extremity; D68.51 Activated protein C resistance; G20 Parkinson's disease; I10 Essential (primary) hypertension; Z79.01 Long term (current) use of anticoagulants; Z82.49 Family history of ischemic heart disease and other diseases of the circulatory system; Z86.718 Personal history of other venous thrombosis and embolism; Z87.2 Personal history of diseases of the skin and subcutaneous tissue
CPT/HCPCS: 11042; 93923; 99213; G0463

== ENCOUNTER 2019-07-20 10:30 | Outpatient (RCR) | payer MEDICARE, OTHER, SELFPAY ==
[2019-06-22 01:16] VITALS: BP 124/75; PULSE 71; RESP 16; TEMP 36.4
[2019-06-29 10:26] VITALS: BP 101/66; PULSE 68; RESP 18; BMI 23.8
--- NOTE | 2019-06-29 11:42 | PCM.WC.HP ---
(1) Swelling of right lower extremity Status: Chronic Current Visit: Yes Code(s): M79.89 - Other specified soft tissue disorders (2) Edema leg Status: Chronic Current Visit: Yes Code(s): R60.0 - Localized edema (3) Ulcer of great toe Status: Chronic Current Visit: Yes Qualifiers: Laterality: right Non-pressure ulcer stage: with fat layer exposed Qualified Code(s): L97.512 - Non-pressure chronic ulcer of other part of right foot with fat layer exposed Code(s): L97.509 - Non-pressure chronic ulcer of other part of unspecified foot with unspecified severity (4) Parkinsons disease Status: Chronic Current Visit: No Code(s): G20 - Parkinson's disease (5) CVA (cerebral vascular accident) Status: Chronic Current Visit: No Qualifiers: Code(s): 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infarction, unspecified (6) History of DVT (deep vein thrombosis) Status: Chronic Current Visit: Yes Code(s): Z86.718 - Personal history of other venous thrombosis and embolism (7) Factor V Leiden mutation Status: Chronic Current Visit: Yes Code(s): D68.51 - Activated protein C resistance (8) Closed right hip fracture Status: Chronic Current Visit: No Qualifiers: Code(s): S72.001A - Fracture of unspecified part of neck of right femur, initial encounter for closed fracture (9) Ulcer of right foot Status: Chronic Current Visit: Yes Qualifiers: Non-pressure ulcer stage: with fat layer exposed Code(s): L97.519 - Non-pressure chronic ulcer of other part of right foot with unspecified severity (10) Venous hypertension, chronic, with inflammation Status: Chronic Current Visit: Yes Qualifiers: Laterality: right Qualified Code(s): I87.321 - Chronic venous hypertension (idiopathic) with inflammation of right lower extremity Code(s): I87.329 - Chronic venous hypertension (idiopathic) with inflammation of unspecified lower extremity (11) Varicose veins with inflammation Status: Chronic Current Visit: Yes Code(s): I83.10 - Varicose veins of unspecified lower extremity with inflammation (12) Venous hypertension, chronic, with ulcer and inflammation Status: Resolved Current Visit: Yes Qualifiers: Laterality: right Code(s): I87.339 - Chronic venous hypertension (idiopathic) with ulcer and inflammation of unspecified lower extremity (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 Current Visit: No Code(s): I87.091 - Postthrombotic syndrome with other complications of right lower extremity (14) Varicose veins with ulcer and inflammation Status: Chronic Current Visit: No Code(s): I83.209 - Varicose veins of unspecified lower extremity with both ulcer of unspecified site and inflammation; L97.909 - Non-pressure chronic ulcer of unspecified part of unspecified lower leg with unspecified severity (15) Chronic venous insufficiency Status: Chronic Current Visit: Yes (16) Venous ulcer of ankle Status: Resolved Current Visit: No Code(s): I83.003 - Varicose veins of unspecified lower extremity with ulcer of ankle (17) Venous ulcer of right lower extremity with varicose veins Status: Chronic Current Visit: No Code(s): I83.019 - Varicose veins of right lower extremity with ulcer of unspecified site (18) History of ulcer of lower extremity Status: Chronic Current Visit: No Code(s): Z87.2 - Personal history of diseases of the skin and subcutaneous tissue (19) Postphlebitic syndrome with inflammation Status: Chronic Current Visit: Yes Code(s): I87.029 - Postthrombotic syndrome with inflammation of unspecified lower extremity (20) Ulcer, pressure Status: Chronic Current Visit: Yes Qualifiers: Pressure injury location: dorsum of foot Pressure injury stage: stage 3 Laterality: right Qualified Code(s): L89.893 - Pressure ulcer of other site, stage 3 Code(s): L89.90 - Pressure ulcer of unspecified site, unspecified stage History of Present Illness Date of Service: 06/29/19 Chief Complaint: Ulceration of the base of the right second toe History of Wound: This is a 69 year-old male who presented with an ulceration on the dorsum of the right foot, near the base of the right second toe. Has been present for approximately 3 weeks. The patient experiences chronic swelling in his right lower extremity. He has a history of chronic venous insufficiency, postphlebitic syndrome with inflammation, varicose veins with inflammation, etc. He has been previously advised to elevate his lower extremities frequently, avoid idle standing and sitting, remain active, and to wear graduated compression stockings on a daily basis. However, the patient has been noncompliant with the recommended measures. He claims to sleep on a flat mattress at night. He is active for his age. 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 He typically wears work boots each day, which often become hot and sweaty securely in the summer months. In April 2013, the patient underwent endovenous laser ablation of the right great saphenous vein, the right small saphenous vein, and the right accessory saphenous vein. He has previously been treated for ulcerations near the right medial malleolus and on the dorsum of the right second toe. A noninvasive lower extremity arterial study performed in March 2018 revealed no evidence of significant arterial occlusive disease in the lower extremities. Laboratory studies from November 2018 have been reviewed, with the following results: White blood count 6.3, hemoglobin 14.6, hematocrit 45.2, platelets 194,000, PT 24.0, INR 2.1, sodium 138, potassium 4.2, chloride 104, BUN 23, creatinine 0.84, glucose 101, calcium 8.8. 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) Varicose veins with ulcer and inflammation (Chronic) Chronic venous insufficiency (Chronic) Venous ulcer of right lower extremity with varicose veins (Chronic) History of ulcer of lower extremity (Chronic) Postphlebitic syndrome with inflammation (Chronic) Ulcer, pressure (Chronic) Surgical History: - - Patient underwent endovenous laser ablation of the right great saphenous vein, the right small saphenous vein, the right accessory saphenous vein on May 04, 2013, right hand surgery, left hip fracture surgery, right total knee replacement, IVC filter placement, open reduction internal fixation of the right hip fracture in November 2018. Allergies/Adverse Reactions: Allergies No Known Allergies Allergy (Verified 06/08/19 13:50) Home Medications: Ambulatory Orders Medication Instructions Recorded Carbidopa/Levodopa 25/100 [Sinemet 2 tablet PO TIDAC 12/09/18 25/100] Tamsulosin HCl [Flomax] 0.8 mg PO DAILY@1730 capsule 12/18/18 Warfarin [Coumadin] 8 mg PO DAILY@1700 tablet 12/18/18 tramadol 50 mg tablet 50 mg PO Q6H PRN #50 tab 12/21/18 - Family History Paternal No pertinent history - Patient father with no market history, at age 92, no diabetes, heart disease, cancer history. Maternal Heart Disease - Patient at age 72 secondary to complications from [place], coronary disease. Smoking Status: Never smoker Tobacco Use: Non-smoker Review of Systems Constitutional: Denies: Chills, Fever, Weight Change Eyes: Denies: Pain, Vision Change HEENT: Denies: Difficulty Hearing, Difficulty Swallowing, Sinus Congestion Cardiovascular: Denies: Chest Pain, Palpitations Respiratory: Denies: Cough, Shortness of Breath Gastrointestinal: Denies: Diarrhea, Nausea, Vomiting Genitourinary: Denies: Dysuria, Hematuria Endocrine: Denies: Heat/ Cold Intolerance, Polydipsia, Polyuria Hematologic/ Lymphatic: Denies: Easy Bruising, Easy Bleeding - Physical Exam Vital Signs Temp Pulse Resp BP 97.6 F L 68 18 101/66 06/22/19 01:16 06/29/19 10:26 06/29/19 10:26 06/29/19 10:26 General: Alert, Oriented x3, Cooperative, No apparent distress, Well developed, Well nourished HEENT: Atraumatic, PERRLA, EOMI, Normocephalic Oral: Moist Mucosa Neck: No JVD Lungs: Normal air movement Abdomen: Non-Distended Extremities: No clubbing, No cyanosis, No Calf Tenderness, - - Mild swelling and edema persist in the patient's right lower extremity. The ulceration on the dorsum of the right foot, near the base of the right second toe, persists. Dimensions are documented elsewhere. There is no sign of infection or cellulitis. There is a moderate amount of bioburden and nonviable tissue. Multiple large varicosities are noted on the right lower extremity. Hyperpigmentation is noted in the gaiter area. There are findings consistent with chronic venous disease. Wound Measurements and Assessment WC - Nurse 1 - General Ulcer Measurement Start: 06/29/19 10:26 Freq: Status: Active Protocol: Activity Type Activity Date Activity User E-Sign Co-Sign Detail Recorded Client Recorded Date Recorded By Document 06/29/19 10:26 GA [id number] 06/29/19 10:33 GA 06/29/19 10:26 Wound Center Nurse 1 [Ulcer Assessment] #17 R 2nd toe -Current Size (cm) - Length 2.6 -Current Size (cm) - Width 2.0 -Current Size (cm) - Depth 0.1 -Total Square Cm 5.20 -Exudate Amt Small -Exudate Type Serosanguineous -Wound Margin Flat & Intact -Granulation Amt Medium (34-66%) -Granulation Quality Pale,[place] -Necrosis Amt Medium (34-66%) -Necrotic Tissue Type Adherent Slough -Texture (Taar-wound Skin Appearance) Assessed -Moisture (Tara-wound Skin Appearance Assessed, ) Maceration -Color (Tara-wound Skin Appearance) Assessed -Temperature (Tara-wound Skin Hot Appearance) -Tenderness on Palpation (Tara-wound No Skin Appearance) -Ulcer Cleansing Rinsed/ Irrigated with Saline -Anesthetic Used 4% Lidocaine Solution [Edema Assessment] -Right Calf (cm) 41 -Right Ankle (cm) 26 WC - Nurse 2 - General Ulcer CM Notes Start: 06/29/19 10:26 Freq: Status: Active Protocol: Activity Type Activity Date Activity User E-Sign Co-Sign Detail Recorded Client Recorded Date Recorded By Document 06/29/19 11:34 [id number] 06/29/19 11:36 06/29/19 11:34 Wound Center Nurse 2 [Procedure/Treatment] #17 R 2nd toe -Time 11:35 -Correct Patient Yes -Correct Side, Site, Position Yes -Correct Procedure Yes -Procedure Performed Yes -Type of Procedure Debridement -Clinical Debridement Subcutaneous -Post Debridement Size (cm) - Length 2.6 -Post Debridement Size (cm) - Width 2.1 -Post Debridement Size (cm) - Depth 0.2 -Total Square Cm 5.46 -Wound/Ulcer Outcome Not Healed -Ulcer Cleansing Rinsed/ Irrigated with Saline -Foul Odor after Cleansing No -Bioengineered Tissue No -Bleeding Controlled with Pressure -Offloading No -Treatment Response Procedure Tolerated Well [See Physician Procedure note for Specifics] Pain Scale: 0-10 Numeric [Pain] -Is Patient Pain Free? Yes Musculoskeletal: No Muscle Wasting Neurological: Cranial nerves II-XII grossly intact, Neuro grossly intact Psych/Mental Status: Normal Affect, Appropriate, Alert and oriented to time, place, person, mood and affect Debridement Note Post-Debridement Measurements/Treatment WC - Nurse 2 - General Ulcer CM Notes Start: 06/29/19 10:26 Freq: Status: Active Protocol: Activity Type Activity Date Activity User E-Sign Co-Sign Detail Recorded Client Recorded Date Recorded By Document 06/29/19 11:34 [id number] 06/29/19 11:36 06/29/19 11:34 Wound Center Nurse 2 #17 R 2nd toe -Time 11:35 -Correct Patient Yes -Correct Side, Site, Position Yes -Correct Procedure Yes -Procedure Performed Yes -Type of Procedure Debridement -Clinical Debridement Subcutaneous -Post Debridement Size (cm) - Length 2.6 -Post Debridement Size (cm) - Width 2.1 -Post Debridement Size (cm) - Depth 0.2 -Total Square Cm 5.46 -Wound/Ulcer Outcome Not Healed -Ulcer Cleansing Rinsed/ Irrigated with Saline -Foul Odor after Cleansing No -Bioengineered Tissue No -Bleeding Controlled with Pressure -Offloading No -Treatment Response Procedure Tolerated Well Pain Scale: 0-10 Numeric Is Patient Pain Free? Yes Laterality: Right - Foot, dorsum Type of Debridement: Excisional debridement Anesthesia Used: 5% Lidocaine Gel Depth: Down to and including healthy tissue, in the subcutaneous layer Percentage of wound debrided: 100 Instrument Used: 3mm curette Tissue Removed: Bioburden and nonviable tissue Severity: Fat Layer Exposed Amount of bleeding with debridement: Mild Bleeding Controlled with: Compression and gauze Patient tolerated procedure well Assessment/Plan Active Problems Swelling of right lower extremity (Chronic) Edema leg (Chronic) Ulcer of great toe (Chronic) History of DVT (deep vein thrombosis) (Chronic) Factor V Leiden mutation (Chronic) Ulcer of right foot (Chronic) Venous hypertension, chronic, with inflammation (Chronic) Varicose veins with inflammation (Chronic) Chronic venous insufficiency (Chronic) Postphlebitic syndrome with inflammation (Chronic) Ulcer, pressure (Chronic) Assessment: This is a 69-year-old male with a long-standing history of chronic venous disease. He presented with an ulceration on the dorsum of the right foot, near the base of the right second toe. This may be pressure related, and likely due to ill fitted footwear. Offloading measures are to be implemented. These measures have been discussed with the patient. Alternative footwear may be necessary. Recommendations will follow below. Plan: Debridement done as documented above. Procedure was well-tolerated. Offloading measures are to be continued. [facility] for offloading purposes. We are to continue the use of [place] topically, which will be changed on a daily basis. Adequate nutritional intake has been recommended. Patient has been advised to elevate his lower extremities as much as possible. The means by which this is to be accomplished has been discussed. He is to continue sleeping on a flat mattress at night. Venous duplex examination, performed on 06/11/19, though no evidence of significant arterial occlusive disease. Therefore, we are to continue the use of graduated compression stockings of 20 to 30 mmHg compression, for which a prescription has been issued. Patient is to return in 1 week for reassessment. He is to avoid idle sitting and standing. Activity has been encouraged. Unfortunately, a lack of compliance appears to be a significant factor in the patient's slow progress. Multiple recommendations for the patient to be evaluated at [facility], the patient has yet to consummate his appointment. There is question as to whether the patient continues to wear his graduated compression stockings and to elevate his lower extremities as recommended. The patient is not a smoker. Influenza vaccine was not administered today. The patient weighs 185 pounds. He stands 6 feet 2 inches tall. His BMI is 23.8, which is normal.
[2019-07-06 10:25] VITALS: BP 104/69; PULSE 69; RESP 18; TEMP 36.8; BMI 23.8
--- NOTE | 2019-07-06 10:50 | PCM.WC.HP ---
(1) Swelling of right lower extremity Status: Chronic Current Visit: Yes Code(s): M79.89 - Other specified soft tissue disorders (2) Edema leg Status: Chronic Current Visit: Yes Code(s): R60.0 - Localized edema (3) Ulcer of great toe Status: Chronic Current Visit: Yes Qualifiers: Laterality: right Non-pressure ulcer stage: with fat layer exposed Qualified Code(s): L97.512 - Non-pressure chronic ulcer of other part of right foot with fat layer exposed Code(s): L97.509 - Non-pressure chronic ulcer of other part of unspecified foot with unspecified severity (4) Parkinsons disease Status: Chronic Current Visit: No Code(s): G20 - Parkinson's disease (5) CVA (cerebral vascular accident) Status: Chronic Current Visit: No Qualifiers: Code(s): 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infarction, unspecified (6) History of DVT (deep vein thrombosis) Status: Chronic Current Visit: Yes Code(s): Z86.718 - Personal history of other venous thrombosis and embolism (7) Factor V Leiden mutation Status: Chronic Current Visit: Yes Code(s): D68.51 - Activated protein C resistance (8) Closed right hip fracture Status: Inactive Current Visit: No Qualifiers: Code(s): S72.001A - Fracture of unspecified part of neck of right femur, initial encounter for closed fracture (9) Ulcer of right foot Status: Chronic Current Visit: Yes Qualifiers: Non-pressure ulcer stage: with fat layer exposed Code(s): L97.519 - Non-pressure chronic ulcer of other part of right foot with unspecified severity (10) Venous hypertension, chronic, with inflammation Status: Chronic Current Visit: Yes Qualifiers: Laterality: right Qualified Code(s): I87.321 - Chronic venous hypertension (idiopathic) with inflammation of right lower extremity Code(s): I87.329 - Chronic venous hypertension (idiopathic) with inflammation of unspecified lower extremity (11) Varicose veins with inflammation Status: Chronic Current Visit: Yes Code(s): I83.10 - Varicose veins of unspecified lower extremity with inflammation (12) Venous hypertension, chronic, with ulcer and inflammation Status: Resolved Current Visit: Yes Qualifiers: Laterality: right Code(s): I87.339 - Chronic venous hypertension (idiopathic) with ulcer and inflammation of unspecified lower extremity (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019 - Varicose veins of right lower extremity with ulcer of unspecified site (17) History of ulcer of lower extremity Status: Chronic Current Visit: No Code(s): Z87.2 - Personal history of diseases of the skin and subcutaneous tissue (18) Postphlebitic syndrome with inflammation Status: Chronic Current Visit: Yes Code(s): I87.029 - Postthrombotic syndrome with inflammation of unspecified lower extremity (19) Ulcer, pressure Status: Chronic Current Visit: Yes Qualifiers: Pressure injury location: dorsum of foot Pressure injury stage: stage 3 Laterality: right Qualified Code(s): L89.893 - Pressure ulcer of other site, stage 3 Code(s): L89.90 - Pressure ulcer of unspecified site, unspecified stage History of Present Illness Date of Service: 07/06/19 Chief Complaint: Ulceration of the base of the right second toe History of Wound: This is a 69 year-old male who presented with an ulceration on the dorsum of the right foot, near the base of the right second toe. Had been present for approximately 3 weeks. The patient experiences chronic swelling in his right lower extremity. He has a history of chronic venous insufficiency, postphlebitic syndrome with inflammation, varicose veins with inflammation, etc. He has been previously advised to elevate his lower extremities frequently, avoid idle standing and sitting, remain active, and to wear graduated compression stockings on a daily basis. However, the patient has been noncompliant with the recommended measures. He claims to sleep on a flat mattress at night. He is active for his age. 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 He typically wears work boots each day, which often become hot and sweaty securely in the summer months. In April 2013, the patient underwent endovenous laser ablation of the right great saphenous vein, the right small saphenous vein, and the right accessory saphenous vein. He has previously been treated for ulcerations near the right medial malleolus and on the dorsum of the right second toe. A noninvasive lower extremity arterial study performed in March 2018 revealed no evidence of significant arterial occlusive disease in the lower extremities. Laboratory studies from November 2018 have been reviewed, with the following results: White blood count 6.3, hemoglobin 14.6, hematocrit 45.2, platelets 194,000, PT 24.0, INR 2.1, sodium 138, potassium 4.2, chloride 104, BUN 23, creatinine 0.84, glucose 101, calcium 8.8. 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) Varicose veins with ulcer and inflammation (Chronic) Chronic venous insufficiency (Chronic) Venous ulcer of right lower extremity with varicose veins (Chronic) History of ulcer of lower extremity (Chronic) Postphlebitic syndrome with inflammation (Chronic) Ulcer, pressure (Chronic) Surgical History: - - Patient underwent endovenous laser ablation of the right great saphenous vein, the right small saphenous vein, the right accessory saphenous vein on May 04, 2013, right hand surgery, left hip fracture surgery, right total knee replacement, IVC filter placement, open reduction internal fixation of the right hip fracture in November 2018. Allergies/Adverse Reactions: Allergies No Known Allergies Allergy (Verified 06/08/19 13:50) Home Medications: Ambulatory Orders Medication Instructions Recorded Carbidopa/Levodopa 25/100 [Sinemet 2 tablet PO TIDAC 12/09/18 25/100] Tamsulosin HCl [Flomax] 0.8 mg PO DAILY@1730 capsule 12/18/18 Warfarin [Coumadin] 8 mg PO DAILY@1700 tablet 12/18/18 tramadol 50 mg tablet 50 mg PO Q6H PRN #50 tab 12/21/18 - Family History Paternal No pertinent history - Patient father with no market history, at age 92, no diabetes, heart disease, cancer history. Maternal Heart Disease - Patient at age 72 secondary to complications from [place], coronary disease. Smoking Status: Never smoker Tobacco Use: Non-smoker Review of Systems Constitutional: Denies: Chills, Fever, Weight Change Eyes: Denies: Pain, Vision Change HEENT: Denies: Difficulty Hearing, Difficulty Swallowing, Sinus Congestion Cardiovascular: Denies: Chest Pain, Palpitations Respiratory: Denies: Cough, Shortness of Breath Gastrointestinal: Denies: Diarrhea, Nausea, Vomiting Genitourinary: Denies: Dysuria, Hematuria Endocrine: Denies: Heat/ Cold Intolerance, Polydipsia, Polyuria Hematologic/ Lymphatic: Denies: Easy Bruising, Easy Bleeding - Physical Exam Vital Signs Temp Pulse Resp BP 98.2 F 69 18 104/69 07/06/19 10:25 07/06/19 10:25 07/06/19 10:25 07/06/19 10:25 General: Alert, Oriented x3, Cooperative, No apparent distress, Well developed, Well nourished HEENT: Atraumatic, PERRLA, EOMI, Normocephalic Oral: Moist Mucosa Neck: No JVD Lungs: Normal air movement Abdomen: Non-Distended Extremities: No clubbing, No cyanosis, No Calf Tenderness, - - Mild swelling and edema is noted involving the distal right lower extremity and the right foot. The ulceration persists on the dorsum of the right foot, near the base of the right second toe. It also involves the dorsal portion of the right great toe. There is a mild amount of bioburden and nonviable tissue. There is no obvious sign of infection or cellulitis. However, due to the chronicity of the wound, and the failure of significant progress, swab cultures have been obtained today for both aerobic and anaerobic growth. Ulcer dimensions are documented elsewhere. Multiple large varicosities are noted in the distal right lower extremity. Wound Measurements and Assessment WC - Nurse 1 - General Ulcer Measurement Start: 06/29/19 10:26 Freq: Status: Active Protocol: Activity Type Activity Date Activity User E-Sign Co-Sign Detail Recorded Client Recorded Date Recorded By Document 07/06/19 10:25 DL [id number] 07/06/19 10:33 DL 07/06/19 10:25 Wound Center Nurse 1 [Ulcer Assessment] #17 R 2nd toe -Current Size (cm) - Length 2 -Current Size (cm) - Width 2.6 -Current Size (cm) - Depth 0.2 -Total Square Cm 5.2 -Photo Taken No -Exudate Amt Small -Exudate Type Serosanguineous -Wound Margin Thickened -Granulation Amt Small (1-33%) -Granulation Quality [place] -Necrosis Amt Large (67-100%) -Necrotic Tissue Type Adherent Slough -Structure Exposed N/A -Texture (Tara-wound Skin Appearance) Excoriation, Localized Edema -Moisture (Tara-wound Skin Appearance Weeping ) -Color (Tara-wound Skin Appearance) Erythema -Temperature (Tara-wound Skin No Abnormality Appearance) (Pt Warm) -Tenderness on Palpation (Tara-wound No Skin Appearance) -Ulcer Cleansing Rinsed/ Irrigated with Saline -Foul Odor after Cleansing No -Anesthetic Used 5% Lidocaine Gel [Edema Assessment] -Right Calf (cm) 38 -Right Ankle (cm) 23.5 WC - Nurse 2 - General Ulcer CM Notes Start: 06/29/19 10:26 Freq: Status: Active Protocol: Activity Type Activity Date Activity User E-Sign Co-Sign Detail Recorded Client Recorded Date Recorded By Document 07/06/19 10:41 MW [id number] 07/06/19 10:49 MW 07/06/19 10:41 Wound Center Nurse 2 [Procedure/Treatment] #17 R 2nd toe -Time 10:45 -Correct Patient Yes -Correct Side, Site, Position Yes -Correct Procedure Yes -Procedure Performed Yes -Type of Procedure Debridement -Clinical Debridement Subcutaneous -Post Debridement Size (cm) - Length 2.1 -Post Debridement Size (cm) - Width 2.6 -Post Debridement Size (cm) - Depth 0.1 -Total Square Cm 5.46 -Wound/Ulcer Outcome Not Healed -Ulcer Cleansing Rinsed/ Irrigated with Saline -Foul Odor after Cleansing No -Bioengineered Tissue No -Bleeding Controlled with Pressure -Offloading No -Treatment Response Procedure Tolerated Well [See Physician Procedure note for Specifics] Pain Scale: 0-10 Numeric [Pain] -Is Patient Pain Free? Yes Musculoskeletal: No Muscle Wasting Neurological: Cranial nerves II-XII grossly intact Psych/Mental Status: Normal Affect, Appropriate, Alert and oriented to time, place, person, mood and affect Debridement Note Post-Debridement Measurements/Treatment WC - Nurse 2 - General Ulcer CM Notes Start: 06/29/19 10:26 Freq: Status: Active Protocol: Activity Type Activity Date Activity User E-Sign Co-Sign Detail Recorded Client Recorded Date Recorded By Document 06/29/19 11:34 JF [id number] 06/29/19 11:36 JF Document 07/06/19 10:41 MW [id number] 07/06/19 10:49 MW 06/29/19 07/06/19 11:34 10:41 Wound Center Nurse 2 #17 R 2nd toe -Time 11:35 10:45 -Correct Patient Yes Yes -Correct Side, Site, Position Yes Yes -Correct Procedure Yes Yes -Procedure Performed Yes Yes -Type of Procedure Debridement Debridement -Clinical Debridement Subcutaneous Subcutaneous -Post Debridement Size (cm) - Length 2.6 2.1 -Post Debridement Size (cm) - Width 2.1 2.6 -Post Debridement Size (cm) - Depth 0.2 0.1 -Total Square Cm 5.46 5.46 -Wound/Ulcer Outcome Not Healed Not Healed -Ulcer Cleansing Rinsed/ Rinsed/ Irrigated with Irrigated with Saline Saline -Foul Odor after Cleansing No No -Bioengineered Tissue No No -Bleeding Controlled with Pressure Pressure -Offloading No No -Treatment Response Procedure Procedure Tolerated Well Tolerated Well Pain Scale: 0-10 Numeric Is Patient Pain Free? Yes Yes Laterality: Right - Dorsal foot Type of Debridement: Excisional debridement Anesthesia Used: 5% Lidocaine Gel Depth: Down to and including healthy tissue, in the subcutaneous layer Percentage of wound debrided: 100 Instrument Used: 7mm curette Tissue Removed: Bioburden and nonviable tissue Severity: Fat Layer Exposed Amount of bleeding with debridement: Mild Bleeding Controlled with: Compression and gauze Patient tolerated procedure well Assessment/Plan Active Problems Swelling of right lower extremity (Chronic) Edema leg (Chronic) Ulcer of great toe (Chronic) History of DVT (deep vein thrombosis) (Chronic) Factor V Leiden mutation (Chronic) Ulcer of right foot (Chronic) Venous hypertension, chronic, with inflammation (Chronic) Varicose veins with inflammation (Chronic) Chronic venous insufficiency (Chronic) Postphlebitic syndrome with inflammation (Chronic) Ulcer, pressure (Chronic) Assessment: This is a 69-year-old male with a long-standing history of chronic venous disease. He presented with an ulceration on the dorsum of the right foot, near the base of the right second toe. This may be pressure related, and likely due to ill-fitted footwear. Offloading measures are to be implemented. These measures have been discussed with the patient. Alternative footwear has been recommended. 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 Plan: Debridement has been done as documented above. Procedure was well-tolerated. Offloading measures are to be continued. We had referred the patient to [employer] [facility] without success for procurement of properly fitted footwear for offloading purposes. Therefore, we are to refer the patient to Dr. May, for her recommendations and fitting of proper offloading footwear. In addition, we will transition from the use of [place] to Aquacel Silver, which will be applied topically on a daily basis. We will await the results of swab cultures for both aerobic and anaerobic growth. Patient is to continue wearing his graduated compression stockings which are of 20 to 30 mmHg compression. These are to be worn on a daily basis. Adequate nutritional intake has been recommended. Patient has been advised to elevate his lower extremities as much as possible. The means by which this is to be accomplished has been discussed. He is to continue sleeping on a flat mattress at night. Patient is to return in 1 week for reassessment. He is to avoid idle sitting and standing. Activity has been encouraged. Unfortunately, a lack of compliance appears to be a significant factor in the patient's slow progress. The patient is not a smoker. Influenza vaccine was not administered today. The patient weighs 185 pounds. He stands 6 feet 2 inches tall. His BMI is 23.8, which is normal.
[2019-07-13 10:38] VITALS: BP 121/76; PULSE 75; RESP 18; TEMP 37; BMI 23.8
[2019-07-20 10:50] VITALS: BP 124/72; PULSE 66; RESP 18; TEMP 36.6; BMI 23.8
--- NOTE | 2019-07-20 11:13 | HP.PCM_ITS ---
(1) Swelling of right lower extremity Status: Chronic Current Visit: Yes Code(s): M79.89 - Other specified soft tissue disorders (2) Edema leg Status: Chronic Current Visit: Yes Code(s): R60.0 - Localized edema (3) Ulcer of great toe Status: Chronic Current Visit: Yes Qualifiers: Laterality: right Non-pressure ulcer stage: with fat layer exposed Qualified Code(s): L97.512 - Non-pressure chronic ulcer of other part of right foot with fat layer exposed Code(s): L97.509 - Non-pressure chronic ulcer of other part of unspecified foot with unspecified severity (4) Parkinsons disease Status: Chronic Current Visit: No Code(s): G20 - Parkinson's disease (5) CVA (cerebral vascular accident) Status: Chronic Current Visit: No Qualifiers: Code(s): 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infarction, unspecified (6) History of DVT (deep vein thrombosis) Status: Chronic Current Visit: Yes Code(s): Z86.718 - Personal history of other venous thrombosis and embolism (7) Factor V Leiden mutation Status: Chronic Current Visit: Yes Code(s): D68.51 - Activated protein C resistance (8) Ulcer of right foot Status: Chronic Current Visit: Yes Qualifiers: Non-pressure ulcer stage: with fat layer exposed Code(s): L97.519 - Non-pressure chronic ulcer of other part of right foot with unspecified severity (9) Venous hypertension, chronic, with inflammation Status: Chronic Current Visit: Yes Qualifiers: Laterality: right Qualified Code(s): I87.321 - Chronic venous hypertension (idiopathic) with inflammation of right lower extremity Code(s): I87.329 - Chronic venous hypertension (idiopathic) with inflammation of unspecified lower extremity (10) Varicose veins with inflammation Status: Chronic Current Visit: Yes Code(s): I83.10 - Varicose veins of unspecified lower extremity with inflammation (11) Venous hypertension, chronic, with ulcer and inflammation Status: Resolved Current Visit: Yes Qualifiers: Laterality: right Code(s): I87.339 - Chronic venous hypertension (idiopathic) with ulcer and inflammation of unspecified lower extremity (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019 - Varicose veins of right lower extremity with ulcer of unspecified site (16) History of ulcer of lower extremity Status: Chronic Current Visit: No Code(s): Z87.2 - Personal history of diseases of the skin and subcutaneous tissue (17) Postphlebitic syndrome with inflammation Status: Chronic Current Visit: Yes Code(s): I87.029 - Postthrombotic syndrome with inflammation of unspecified lower extremity (18) Ulcer, pressure Status: Chronic Current Visit: Yes Qualifiers: Pressure injury location: dorsum of foot Pressure injury stage: stage 3 Laterality: right Qualified Code(s): L89.893 - Pressure ulcer of other site, stage 3 Code(s): L89.90 - Pressure ulcer of unspecified site, unspecified stage History of Present Illness Date of Service: 07/20/19 Chief Complaint: Ulceration of the base of the right second toe History of Wound: This is a 69 year-old male who presented with an ulceration on the dorsum of the right foot, near the base of the right second toe. Had been present for approximately 3 weeks. The patient experiences chronic swelling in his right lower extremity. He has a history of chronic venous insufficiency, postphlebitic syndrome with inflammation, varicose veins with inflammation, etc. He has been previously advised to elevate his lower extremities frequently, avoid idle standing and sitting, remain active, and to wear graduated compression stockings on a daily basis. However, the patient has been noncompliant with the recommended measures. He claims to sleep on a flat mattress at night. He is active for his age. 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 He typically wears work boots each day, which often become hot and sweaty securely in the summer months. In April 2013, the patient underwent endovenous laser ablation of the right great saphenous vein, the right small saphenous vein, and the right accessory saphenous vein. He has previously been treated for ulcerations near the right medial malleolus and on the dorsum of the right second toe. A noninvasive lower extremity arterial study performed in March 2018 revealed no evidence of significant arterial occlusive disease in the lower extremities. Laboratory studies from November 2018 have been reviewed, with the following results: White blood count 6.3, hemoglobin 14.6, hematocrit 45.2, platelets 194,000, PT 24.0, INR 2.1, sodium 138, potassium 4.2, chloride 104, BUN 23, creatinine 0.84, glucose 101, calcium 8.8. 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) Varicose veins with ulcer and inflammation (Chronic) Chronic venous insufficiency (Chronic) Venous ulcer of right lower extremity with varicose veins (Chronic) History of ulcer of lower extremity (Chronic) Postphlebitic syndrome with inflammation (Chronic) Ulcer, pressure (Chronic) Surgical History: - - Patient underwent endovenous laser ablation of the right great saphenous vein, the right small saphenous vein, the right accessory saphenous vein on May 04, 2013, right hand surgery, left hip fracture surgery , right total knee replacement, IVC filter placement, open reduction internal fixation of the right hip fracture in November 2018. Allergies/Adverse Reactions: Allergies No Known Allergies Allergy (Verified 06/08/19 13:50) Home Medications: Ambulatory Orders Medication Instructions Recorded Carbidopa/Levodopa 25/100 [Sinemet 2 tablet PO TIDAC 12/09/18 25/100] Tamsulosin HCl [Flomax] 0.8 mg PO DAILY@1730 capsule 12/18/18 Warfarin [Coumadin] 8 mg PO DAILY@1700 tablet 12/18/18 tramadol 50 mg tablet 50 mg PO Q6H PRN #50 tab 12/21/18 - Family History Paternal No pertinent history - Patient father with no market history, at age 92, no diabetes, heart disease, cancer history. Maternal Heart Disease - Patient at age 72 secondary to complications from [place], coronary disease. Smoking Status: Never smoker Tobacco Use: Non-smoker Review of Systems Constitutional: Denies: Chills, Fever, Weight Change Eyes: Denies: Pain, Vision Change HEENT: Denies: Difficulty Hearing, Difficulty Swallowing, Sinus Congestion Cardiovascular: Denies: Chest Pain, Palpitations Respiratory: Denies: Cough, Shortness of Breath Gastrointestinal: Denies: Diarrhea, Nausea, Vomiting Genitourinary: Denies: Dysuria, Hematuria Endocrine: Denies: Heat/ Cold Intolerance, Polydipsia, Polyuria Hematologic/ Lymphatic: Denies: Easy Bruising, Easy Bleeding - Physical Exam Vital Signs Temp Pulse Resp BP 98 F 66 18 124/72 H 07/20/19 10:50 07/20/19 10:50 07/20/19 10:50 07/20/19 10:50 General: Alert, Oriented x3, Cooperative, No apparent distress, Well developed, Well nourished HEENT: Atraumatic, PERRLA, EOMI, Normocephalic Oral: Moist Mucosa Neck: No JVD Lungs: Normal air movement Abdomen: Non-Distended Extremities: No clubbing, No cyanosis, No Calf Tenderness, - - Mild swelling and edema persist in the lower extremities, most notable in the right lower extremity. The right foot is also swollen. The ulceration persists on the dorsum of the foot, near the base of the right second toe. There is a mild amount of bioburden. There is, however, evidence of peripheral epithelialization. Dimensions are documented elsewhere. Wound Measurements and Assessment WC - Nurse 1 - General Ulcer Measurement Start: 06/29/19 10:26 Freq: Status: Active Protocol: Activity Type Activity Date Activity User E-Sign Co-Sign Detail Recorded Client Recorded Date Recorded By Document 07/20/19 10:50 RB [id number] 07/20/19 10:53 RB 07/20/19 10:50 Wound Center Nurse 1 [Ulcer Assessment] #17 R 2nd toe -Combined with other wound No -Current Size (cm) - Length 1 -Current Size (cm) - Width 0.6 -Current Size (cm) - Depth 0.2 -Total Square Cm 0.6 -Tunneling No -Undermining/Tunneling No -Circular Undermining No -Exudate Amt Small -Exudate Type Serosanguineous -Wound Margin Distinct, Outline Attached -Granulation Amt Medium (34-66%) -Granulation Quality Stamping Ground -Slough/Fibrin Yes -Necrosis Amt Small (1-33%) -Necrotic Tissue Type Adherent Slough -Structure Exposed N/A -Texture (Tara-wound Skin Appearance) Assessed -Moisture (Tara-wound Skin Appearance Assessed ) -Color (Tara-wound Skin Appearance) Assessed -Temperature (Tara-wound Skin No Abnormality Appearance) (Pt Warm) -Tenderness on Palpation (Tara-wound No Skin Appearance) -Ulcer Cleansing Wound Cleanser -Foul Odor after Cleansing No -Anesthetic Used 5% Lidocaine Gel - Nurse 2 - General Ulcer CM Notes Start: 06/29/19 10:26 Freq: Status: Active Protocol: Activity Type Activity Date Activity User E-Sign Co-Sign Detail Recorded Client Recorded Date Recorded By Document 07/20/19 11:08 [id number] 07/20/19 11:09 07/20/19 11:08 Wound Center Nurse 2 [Procedure/Treatment] -Time 11:08 -Correct Patient Yes -Correct Side, Site, Position Yes -Correct Procedure Yes -Procedure Performed Yes -Type of Procedure Debridement -Clinical Debridement Subcutaneous -Post Debridement Size (cm) - Length 1.0 -Post Debridement Size (cm) - Width 0.6 -Post Debridement Size (cm) - Depth 0.2 -Total Square Cm 0.60 -Wound/Ulcer Outcome Not Healed -Ulcer Cleansing Not Cleansed -Foul Odor after Cleansing No -Bioengineered Tissue No -Bleeding Controlled with NA -Offloading No -Treatment Response Procedure Tolerated Well [See Physician Procedure note for Specifics] Pain Scale: 0-10 Numeric [Pain] -Is Patient Pain Free? Yes Musculoskeletal: No Muscle Wasting Neurological: Cranial nerves II-XII grossly intact, Neuro grossly intact Psych/Mental Status: Normal Affect, Appropriate, Alert and oriented to time, place, person, mood and affect Debridement Note Post-Debridement Measurements/Treatment - Nurse 2 - General Ulcer CM Notes Start: 06/29/19 10:26 Freq: Status: Active Protocol: Activity Type Activity Date Activity User E-Sign Co-Sign Detail Recorded Client Recorded Date Recorded By Document 06/29/19 11:34 JF [id number] 06/29/19 11:36 JF Document 07/06/19 10:41 MW [id number] 07/06/19 10:49 MW Document 07/20/19 11:08 CS [id number] 07/20/19 11:09 CS 06/29/19 07/06/19 07/20/19 11:34 10:41 11:08 Wound Center Nurse 2 #17 R 2nd toe -Time 11:35 10:45 11:08 -Correct Patient Yes Yes Yes -Correct Side, Site, Position Yes Yes Yes -Correct Procedure Yes Yes Yes -Procedure Performed Yes Yes Yes -Type of Procedure Debridement Debridement Debridement -Clinical Debridement Subcutaneous Subcutaneous Subcutaneous -Post Debridement Size (cm) - Length 2.6 2.1 1.0 -Post Debridement Size (cm) - Width 2.1 2.6 0.6 -Post Debridement Size (cm) - Depth 0.2 0.1 0.2 -Total Square Cm 5.46 5.46 0.60 -Wound/Ulcer Outcome Not Healed Not Healed Not Healed -Ulcer Cleansing Rinsed/ Rinsed/ Not Cleansed Irrigated with Irrigated with Saline Saline -Foul Odor after Cleansing No No No -Bioengineered Tissue No No No -Bleeding Controlled with Pressure Pressure NA -Offloading No No No -Treatment Response Procedure Procedure Procedure Tolerated Well Tolerated Well Tolerated Well Pain Scale: 0-10 Numeric Is Patient Pain Free? Yes Yes Yes Laterality: Right - Dorsal foot Type of Debridement: Excisional debridement Anesthesia Used: 5% Lidocaine Gel Depth: Down to and including healthy tissue, in the subcutaneous layer Percentage of wound debrided: 100 Instrument Used: 5mm curette Tissue Removed: Bioburden and nonviable tissue Severity: Fat Layer Exposed Amount of bleeding with debridement: Mild Bleeding Controlled with: Compression and gauze Patient tolerated procedure well Assessment/Plan Active Problems Swelling of right lower extremity (Chronic) Edema leg (Chronic) Ulcer of great toe (Chronic) History of DVT (deep vein thrombosis) (Chronic) Factor V Leiden mutation (Chronic) Ulcer of right foot (Chronic) Venous hypertension, chronic, with inflammation (Chronic) Varicose veins with inflammation (Chronic) Chronic venous insufficiency (Chronic) Postphlebitic syndrome with inflammation (Chronic) Ulcer, pressure (Chronic) Assessment: This is a 69-year-old male with a long-standing history of chronic venous disease. He presented with an ulceration on the dorsum of the right foot, near the base of the right second toe. This may be pressure related, and likely due to ill-fitted footwear. Offloading measures are to be implemented. These measures have been discussed with the patient. Alternative footwear has been recommended. 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 The patient has recently been evaluated on an outpatient basis by Dr. May, who has ordered offloading shoes. Receipt of the shoes is awaited. Plan: Debridement has been done as documented above. Procedure was well- tolerated. Offloading measures are to be continued. We are to continue the use of Aquasol silver topically on a daily basis. Patient has completed his course of Levaquin 750 mg p.o. daily for 7 days. Levaquin was prescribed due to cultures which were positive for pseudomonas aeruginosa and Staphylococcus species. Patient is to continue wearing his graduated compression stockings which are of 20 to 30 mmHg compression. These are to be worn on a daily basis. Adequate nutritional intake has been recommended. Patient has been advised to elevate his lower extremities as much as possible. The means by which this is to be accomplished has been discussed. He is to continue sleeping on a flat mattress at night. Patient is to return in 1 week for reassessment. He is to avoid idle sitting and standing. Activity has been encouraged. Unfortunately, a lack of compliance is suspected to be a factor in the patient's slow progress. The patient is not a smoker. Influenza vaccine was not administered today. The patient weighs 185 pounds. He stands 6 feet 2 inches tall. His BMI is 23.8, which is normal.
== END 2019-07-22 23:59 ==
LOC: WC 10:30
PROVIDERS: Family Provider Family Medicine; PCP Family Medicine; Referring Provider Surgery; Visit Provider Surgery
DX: I83.215 Varicose veins of right lower extremity with both ulcer other part of foot and inflammation (principal); L97.512 Non-pressure chronic ulcer of other part of right foot with fat layer exposed; R60.0 Localized edema; M79.89 Other specified soft tissue disorders; I83.10 Varicose veins of unspecified lower extremity with inflammation; D68.51 Activated protein C resistance; G20 Parkinson's disease; I10 Essential (primary) hypertension; Z86.718 Personal history of other venous thrombosis and embolism
CPT/HCPCS: 11042; 87070; 87075; 87077; 87186; 87205; 99213; G0463

== ENCOUNTER → 2019-07-30 12:52 | Outpatient (CLI) | payer MEDICARE, OTHER, SELFPAY ==
[2019-07-27 10:55] VITALS: BMI 23.8
--- NOTE | 2019-07-30 12:57 | RAD_ITS ---
STUDY: X-RAY - PELVIS AND BILATERAL HIPS REASON FOR EXAM: Male, 69 years old. ] Pain following a recent fall. TECHNIQUE: AP view of the pelvis.? 2 views of the right hip, and 2 views of the left hip were obtained. COMPARISON: Comparison is made with prior study dated December 23, 2018. FINDINGS: The patient is status post right total hip replacement. There is good alignment. The patient is status post left intertrochanteric hip pinning with side plate device. No acute fracture is seen. Degenerative changes of the sacroiliac joints bilaterally. RAD/Hips B/L min 2 views w/ Pelvis IMPRESSION: Status post right total hip replacement and left hip pinning. No acute abnormality is seen. Electronically Signed: Lester Altamirano, at 13:32 EST , Service support ,
== END ==
PROVIDERS: Family Provider Family Medicine; PCP Family Medicine; Referring Provider Family Medicine; Visit Provider Family Medicine
DX: M25.551 Pain in right hip (principal)
CPT/HCPCS: 73521

== ENCOUNTER 2019-08-17 09:15 | Outpatient (RCR) | payer MEDICARE, OTHER, SELFPAY ==
[2019-07-23 01:12] VITALS: BP 124/72; PULSE 66; RESP 18; TEMP 36.6
[2019-07-27 10:55] VITALS: BP 138/80; PULSE 77; RESP 18; TEMP 36.3; BMI 23.8
--- NOTE | 2019-07-27 11:08 | WC ---
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 pt c/o groin pain and buttocks . also pain in bilat legs, dr kolb aware
--- NOTE | 2019-07-27 12:13 | HP.PCM_ITS ---
(1) Swelling of right lower extremity Status: Chronic Current Visit: Yes Code(s): M79.89 - Other specified soft tissue disorders (2) Edema leg Status: Chronic Current Visit: Yes Code(s): R60.0 - Localized edema (3) Ulcer of great toe Status: Chronic Current Visit: Yes Qualifiers: Laterality: right Non-pressure ulcer stage: with fat layer exposed Qualified Code(s): L97.512 - Non-pressure chronic ulcer of other part of right foot with fat layer exposed Code(s): L97.509 - Non-pressure chronic ulcer of other part of unspecified foot with unspecified severity (4) Parkinsons disease Status: Chronic Current Visit: Yes Code(s): G20 - Parkinson's disease (5) CVA (cerebral vascular accident) Status: Chronic Current Visit: No Qualifiers: Code(s): 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infarction, unspecified (6) History of DVT (deep vein thrombosis) Status: Chronic Current Visit: Yes Code(s): Z86.718 - Personal history of other venous thrombosis and embolism (7) Factor V Leiden mutation Status: Chronic Current Visit: Yes Code(s): D68.51 - Activated protein C resistance (8) Closed right hip fracture Status: Inactive Current Visit: No Qualifiers: Code(s): S72.001A - Fracture of unspecified part of neck of right femur, initial encounter for closed fracture (9) Ulcer of right foot Status: Chronic Current Visit: Yes Qualifiers: Non-pressure ulcer stage: with fat layer exposed Code(s): L97.519 - Non-pressure chronic ulcer of other part of right foot with unspecified severity (10) Venous hypertension, chronic, with inflammation Status: Chronic Current Visit: Yes Qualifiers: Laterality: bilateral Qualified Code(s): I87.323 - Chronic venous hypertension (idiopathic) with inflammation of bilateral lower extremity Code(s): I87.329 - Chronic venous hypertension (idiopathic) with inflammation of unspecified lower extremity (11) Varicose veins with inflammation Status: Chronic Current Visit: Yes Code(s): I83.10 - Varicose veins of unspecified lower extremity with inflammation (12) Venous hypertension, chronic, with ulcer and inflammation Status: Resolved Current Visit: No Qualifiers: Code(s): I87.339 - Chronic venous hypertension (idiopathic) with ulcer and inflammation of unspecified lower extremity (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 Current Visit: Yes Code(s): I87.091 - Postthrombotic syndrome with other complications of right lower extremity (14) Varicose veins with ulcer and inflammation Status: Chronic Current Visit: Yes Code(s): I83.209 - Varicose veins of unspecified lower extremity with both ulcer of unspecified site and inflammation; L97.909 - Non-pressure chronic ulcer of unspecified part of unspecified lower leg with unspecified severity (15) Chronic venous insufficiency Status: Chronic Current Visit: Yes (16) Venous ulcer of ankle Status: Resolved Current Visit: No Code(s): I83.003 - Varicose veins of unspecified lower extremity with ulcer of ankle (17) Venous ulcer of right lower extremity with varicose veins Status: Inactive Current Visit: No Code(s): I83.019 - Varicose veins of right lower extremity with ulcer of unspecified site (18) History of ulcer of lower extremity Status: Chronic Current Visit: Yes Code(s): Z87.2 - Personal history of diseases of the skin and subcutaneous tissue (19) Postphlebitic syndrome with inflammation Status: Chronic Current Visit: Yes Code(s): I87.029 - Postthrombotic syndrome with inflammation of unspecified lower extremity (20) Ulcer, pressure Status: Chronic Current Visit: Yes Qualifiers: Code(s): L89.90 - Pressure ulcer of unspecified site, unspecified stage History of Present Illness Date of Service: 07/27/19 Chief Complaint: Ulceration of the base of the right second toe History of Wound: This is a 69 year-old male who presented with an ulceration on the dorsum of the right foot, near the base of the right second toe. Had been present for approximately 3 weeks. The patient experiences chronic swelling in his right lower extremity. He has a history of chronic venous insufficiency, postphlebitic syndrome with inflammation, varicose veins with inflammation, etc. He has been previously advised to elevate his lower extremities frequently, avoid idle standing and sitting, remain active, and to wear graduated compression stockings on a daily basis. However, the patient has been noncompliant with the recommended measures. He claims to sleep on a flat mattress at night. He is active for his age. 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 He typically wears work boots each day, which often become hot and sweaty securely in the summer months. In April 2013, the patient underwent endovenous laser ablation of the right great saphenous vein, the right small saphenous vein, and the right accessory saphenous vein. He has previously been treated for ulcerations near the right medial malleolus and on the dorsum of the right second toe. A noninvasive lower extremity arterial study performed in March 2018 revealed no evidence of significant arterial occlusive disease in the lower extremities. Laboratory studies from November 2018 have been reviewed, with the following results: White blood count 6.3, hemoglobin 14.6, hematocrit 45.2, platelets 194,000, PT 24.0, INR 2.1, sodium 138, potassium 4.2, chloride 104, BUN 23, creatinine 0.84, glucose 101, calcium 8.8. 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 Allergies/Adverse Reactions: Allergies No Known Allergies Allergy (Verified 06/08/19 13:50) Home Medications: Ambulatory Orders Medication Instructions Recorded Carbidopa/Levodopa 25/100 [Sinemet 2 tablet PO TIDAC 12/09/18 25/100] Tamsulosin HCl [Flomax] 0.8 mg PO DAILY@1730 capsule 12/18/18 Warfarin [Coumadin] 8 mg PO DAILY@1700 tablet 12/18/18 tramadol 50 mg tablet 50 mg PO Q6H PRN #50 tab 12/21/18 - Family History Paternal No pertinent history - Patient father with no market history, at age 92, no diabetes, heart disease, cancer history. Maternal Heart Disease - Patient at age 72 secondary to complications from [place], coronary disease. Smoking Status: Never smoker Tobacco Use: Non-smoker Review of Systems Constitutional: Denies: Chills, Fever, Weight Change Eyes: Denies: Pain, Vision Change HEENT: Denies: Difficulty Hearing, Difficulty Swallowing, Sinus Congestion Cardiovascular: Denies: Chest Pain, Palpitations Respiratory: Denies: Cough, Shortness of Breath Gastrointestinal: Denies: Diarrhea, Nausea, Vomiting Genitourinary: Denies: Dysuria, Hematuria Endocrine: Denies: Heat/ Cold Intolerance, Polydipsia, Polyuria Hematologic/ Lymphatic: Denies: Easy Bruising, Easy Bleeding - Physical Exam Vital Signs Temp Pulse Resp BP 97.3 F L 77 18 138/80 H 07/27/19 10:55 07/27/19 10:55 07/27/19 10:55 07/27/19 10:55 General: Alert, Oriented x3, Cooperative, No apparent distress, Well developed, Well nourished HEENT: Atraumatic, PERRLA, EOMI, Normocephalic Oral: Moist Mucosa Neck: No JVD Lungs: Normal air movement Abdomen: Non-Distended Extremities: No clubbing, No cyanosis, No Calf Tenderness, - - Swelling and edema persist in the right lower extremity. The ulceration on the dorsum of the right foot, near the base of the right great toe and the right second toe persists. It is little changed in size or appearance. There is no sign of i nfection or cellulitis. Dimensions are documented elsewhere. There is a moderate amount of bioburden. Multiple varicosities are noted in the lower extremities. Wound Measurements and Assessment WC - Nurse 1 - General Ulcer Measurement Start: 07/27/19 10:55 Freq: Status: Active Protocol: Activity Type Activity Date Activity User E-Sign Co-Sign Detail Recorded Client Recorded Date Recorded By Document 07/27/19 10:55 RB [id number] 07/27/19 11:07 RB 07/27/19 10:55 Wound Center Nurse 1 [Ulcer Assessment] #17 R 2nd toe -Combined with other wound No -Current Size (cm) - Length 1.5 -Current Size (cm) - Width 0.4 -Current Size (cm) - Depth 0.2 -Total Square Cm 0.60 -Tunneling No -Undermining/Tunneling No -Circular Undermining No -Exudate Amt Small -Exudate Type Serosanguineous -Wound Margin Distinct, Outline Attached -Granulation Amt Medium (34-66%) -Granulation Quality Lavelle -Slough/Fibrin Yes -Necrosis Amt Medium (34-66%) -Necrotic Tissue Type Adherent Slough -Structure Exposed N/A -Texture (Tara-wound Skin Appearance) Assessed, Scarring -Moisture (Tara-wound Skin Appearance Assessed ) -Color (Tara-wound Skin Appearance) Assessed -Temperature (Tara-wound Skin No Abnormality Appearance) (Pt Warm) -Tenderness on Palpation (Tara-wound No Skin Appearance) -Ulcer Cleansing Wound Cleanser -Foul Odor after Cleansing No -Anesthetic Used 5% Lidocaine Gel [Edema Assessment] -Lower Limb Edema Present Yes -Right Calf (cm) 39.5 -Right Ankle (cm) 23.5 WC - Nurse 2 - General Ulcer CM Notes Start: 07/27/19 10:55 Freq: Status: Active Protocol: Activity Type Activity Date Activity User E-Sign Co-Sign Detail Recorded Client Recorded Date Recorded By Document 07/27/19 11:15 NITESH [id number] 07/27/19 11:17 NITESH 07/27/19 11:15 Wound Center Nurse 2 [Procedure/Treatment] #17 R 2nd toe -Time 11:15 -Correct Patient Yes -Correct Side, Site, Position Yes -Correct Procedure Yes -Procedure Performed Yes -Type of Procedure Debridement -Clinical Debridement Subcutaneous -Post Debridement Size (cm) - Length 1.8 -Post Debridement Size (cm) - Width 1.0 -Post Debridement Size (cm) - Depth 0.2 -Total Square Cm 1.80 -Wound/Ulcer Outcome Not Healed -Ulcer Cleansing Rinsed/ Irrigated with Saline -Foul Odor after Cleansing No -Bioengineered Tissue No -Bleeding Controlled with Pressure -Offloading No -Treatment Response Procedure Tolerated Well [See Physician Procedure note for Specifics] Pain Scale: 0-10 Numeric [Pain] -Is Patient Pain Free? Yes Musculoskeletal: No Muscle Wasting Neurological: Cranial nerves II-XII grossly intact, Neuro grossly intact Psych/Mental Status: Normal Affect, Appropriate, Alert and oriented to time, place, person, mood and affect Debridement Note Post-Debridement Measurements/Treatment WC - Nurse 2 - General Ulcer CM Notes Start: 07/27/19 10:55 Freq: Status: Active Protocol: Activity Type Activity Date Activity User E-Sign Co-Sign Detail Recorded Client Recorded Date Recorded By Document 07/27/19 11:15 NITESH [id number] 07/27/19 11:17 NITESH 07/27/19 11:15 Wound Center Nurse 2 #17 R 2nd toe -Time 11:15 -Correct Patient Yes -Correct Side, Site, Position Yes -Correct Procedure Yes -Procedure Performed Yes -Type of Procedure Debridement -Clinical Debridement Subcutaneous -Post Debridement Size (cm) - Length 1.8 -Post Debridement Size (cm) - Width 1.0 -Post Debridement Size (cm) - Depth 0.2 -Total Square Cm 1.80 -Wound/Ulcer Outcome Not Healed -Ulcer Cleansing Rinsed/ Irrigated with Saline -Foul Odor after Cleansing No -Bioengineered Tissue No -Bleeding Controlled with Pressure -Offloading No -Treatment Response Procedure Tolerated Well Pain Scale: 0-10 Numeric Is Patient Pain Free? Yes Laterality: Right - Dorsal foot Type of Debridement: Excisional debridement Anesthesia Used: 5% Lidocaine Gel Depth: Down to and including healthy tissue, in the subcutaneous layer Percentage of wound debrided: 100 Instrument Used: 7mm curette Tissue Removed: Bioburden and nonviable tissue Severity: Fat Layer Exposed Amount of bleeding with debridement: Mild Bleeding Controlled with: Compression and gauze Patient tolerated procedure well Assessment/Plan Active Problems Swelling of right lower extremity (Chronic) Edema leg (Chronic) Ulcer of great toe (Chronic) Parkinsons disease (Chronic) History of DVT (deep vein thrombosis) (Chronic) Factor V Leiden mutation (Chronic) Ulcer of right foot (Chronic) Venous hypertension, chronic, with inflammation (Chronic) Varicose veins with inflammation (Chronic) 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 He presented with an ulceration on the dorsum of the right foot, near the base of the right second toe. This appears to be pressure rela krunal, and likely due to ill-fitted footwear. Offloading measures are to be continued. These measures have been discussed with the patient. Alternative footwear has been recommended. He has been recently evaluated by Dr. May, and offloading footwear is on order, awaiting to be received. The patient also relates that [place], sustaining blunt trauma to the tailbone area. He is in extreme pain, and states I cannot walk. He is ambulating with some difficulty using a walker. His is at the bedside today, and the patient and his have been advised to undergo evaluation for concerns relative to possible pelvic fractures, hip fracture, or other blunt trauma injury. Patient is noted to be on systemic anticoagulation therapy. Plan: Debridement has been done as documented above. Procedure was well- tolerated. Offloading measures are to be continued. We are to continue the use of Aquacel silver topically on a daily basis. Patient has completed his course of Levaquin 750 mg p.o. daily for 7 days. Levaquin was prescribed due to cultures which were positive for pseudomonas aeruginosa and Staphylococcus species. Patient is to continue wearing his graduated compression stockings which are of 20 to 30 mmHg compression. These are to be worn on a daily basis. Adequate nutritional intake has been recommended. Patient has been advised to elevate his lower extremities as much as possible. The means by which this is to be accomplished has been discussed. He is to continue sleeping on a flat mattress at night. Patient is to return in 1 week for reassessment. He is to avoid idle sitting and standing. Activity has been encouraged. The patient awaits receipt of his offloading footwear as ordered by Dr. May. The patient is not a smoker. Influenza vaccine was not administered today. The patient weighs 185 pounds. He stands 6 feet 2 inches tall. His BMI is 23.8, which is normal.
[2019-08-03 10:42] VITALS: BP 129/87; PULSE 77; RESP 16; TEMP 36.3; BMI 23.8
--- NOTE | 2019-08-03 11:37 | PCM.WC.HP ---
(1) Swelling of right lower extremity Status: Chronic Current Visit: Yes Code(s): M79.89 - Other specified soft tissue disorders (2) Edema leg Status: Chronic Current Visit: Yes Code(s): R60.0 - Localized edema (3) Ulcer of great toe Status: Chronic Current Visit: Yes Qualifiers: Laterality: right Non-pressure ulcer stage: with fat layer exposed Qualified Code(s): L97.512 - Non-pressure chronic ulcer of other part of right foot with fat layer exposed Code(s): L97.509 - Non-pressure chronic ulcer of other part of unspecified foot with unspecified severity (4) Parkinsons disease Status: Chronic Current Visit: Yes Code(s): G20 - Parkinson's disease (5) CVA (cerebral vascular accident) Status: Chronic Current Visit: No Qualifiers: Code(s): 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infarction, unspecified (6) History of DVT (deep vein thrombosis) Status: Chronic Current Visit: Yes Code(s): Z86.718 - Personal history of other venous thrombosis and embolism (7) Factor V Leiden mutation Status: Chronic Current Visit: Yes Code(s): D68.51 - Activated protein C resistance (8) Ulcer of right foot Status: Chronic Current Visit: Yes Qualifiers: Non-pressure ulcer stage: with fat layer exposed Code(s): L97.519 - Non-pressure chronic ulcer of other part of right foot with unspecified severity (9) Venous hypertension, chronic, with inflammation Status: Chronic Current Visit: Yes Qualifiers: Laterality: bilateral Qualified Code(s): I87.323 - Chronic venous hypertension (idiopathic) with inflammation of bilateral lower extremity Code(s): I87.329 - Chronic venous hypertension (idiopathic) with inflammation of unspecified lower extremity (10) Varicose veins with inflammation Status: Chronic Current Visit: Yes Code(s): I83.10 - Varicose veins of unspecified lower extremity with inflammation (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 Current Visit: Yes Code(s): I87.091 - Postthrombotic syndrome with other complications of right lower extremity (12) Varicose veins with ulcer and inflammation Status: Chronic Current Visit: Yes Code(s): I83.209 - Varicose veins of unspecified lower extremity with both ulcer of unspecified site and inflammation; L97.909 - Non-pressure chronic ulcer of unspecified part of unspecified lower leg with unspecified severity (13) Chronic venous insufficiency Status: Chronic Current Visit: Yes (14) History of ulcer of lower extremity Status: Chronic Current Visit: Yes Code(s): Z87.2 - Personal history of diseases of the skin and subcutaneous tissue (15) Postphlebitic syndrome with inflammation Status: Chronic Current Visit: Yes Code(s): I87.029 - Postthrombotic syndrome with inflammation of unspecified lower extremity (16) Ulcer, pressure Status: Chronic Current Visit: Yes Qualifiers: Code(s): L89.90 - Pressure ulcer of unspecified site, unspecified stage History of Present Illness Date of Service: 08/03/19 Chief Complaint: Ulceration of the base of the right second toe History of Wound: This is a 69 year-old male who presented with an ulceration on the dorsum of the right foot, near the base of the right second toe. Had been present for approximately 3 weeks. The patient experiences chronic swelling in his right lower extremity. He has a history of chronic venous insufficiency, postphlebitic syndrome with inflammation, varicose veins with inflammation, etc. He has been previously advised to elevate his lower extremities frequently, avoid idle standing and sitting, remain active, and to wear graduated compression stockings on a daily basis. However, the patient has been noncompliant with the recommended measures. He claims to sleep on a flat mattress at night. He is active for his age. 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 He typically wears work boots each day, which often become hot and sweaty securely in the summer months. In April 2013, the patient underwent endovenous laser ablation of the right great saphenous vein, the right small saphenous vein, and the right accessory saphenous vein. He has previously been treated for ulcerations near the right medial malleolus and on the dorsum of the right second toe. A noninvasive lower extremity arterial study performed in March 2018 revealed no evidence of significant arterial occlusive disease in the lower extremities. Laboratory studies from November 2018 have been reviewed, with the following results: White blood count 6.3, hemoglobin 14.6, hematocrit 45.2, platelets 194,000, PT 24.0, INR 2.1, sodium 138, potassium 4.2, chloride 104, BUN 23, creatinine 0.84, glucose 101, calcium 8.8. 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 Allergies/Adverse Reactions: Allergies No Known Allergies Allergy (Verified 06/08/19 13:50) Home Medications: Ambulatory Orders Medication Instructions Recorded Carbidopa/Levodopa 25/100 [Sinemet 2 tablet PO TIDAC 12/09/18 25/100] Tamsulosin HCl [Flomax] 0.8 mg PO DAILY@1730 capsule 12/18/18 Warfarin [Coumadin] 8 mg PO DAILY@1700 tablet 12/18/18 tramadol 50 mg tablet 50 mg PO Q6H PRN #50 tab 12/21/18 - Family History Paternal No pertinent history - Patient father with no market history, at age 92, no diabetes, heart disease, cancer history. Maternal Heart Disease - Patient at age 72 secondary to complications from [place], coronary disease. Smoking Status: Never smoker Tobacco Use: Non-smoker Review of Systems Constitutional: Denies: Chills, Fever, Weight Change Eyes: Denies: Pain, Vision Change HEENT: Denies: Difficulty Hearing, Difficulty Swallowing, Sinus Congestion Cardiovascular: Denies: Chest Pain, Palpitations Respiratory: Denies: Cough, Shortness of Breath Gastrointestinal: Denies: Diarrhea, Nausea, Vomiting Genitourinary: Denies: Dysuria, Hematuria Endocrine: Denies: Heat/ Cold Intolerance, Polydipsia, Polyuria Hematologic/ Lymphatic: Denies: Easy Bruising, Easy Bleeding - Physical Exam Vital Signs Temp Pulse Resp BP 97.3 F L 77 16 129/87 H 08/03/19 10:42 08/03/19 10:42 08/03/19 10:42 08/03/19 10:42 General: Alert, Oriented x3, Cooperative, No apparent distress, Well developed, Well nourished HEENT: Atraumatic, PERRLA, EOMI, Normocephalic Oral: Moist Mucosa Neck: No JVD Lungs: Normal air movement Abdomen: Non-Distended Extremities: No clubbing, No cyanosis, No Calf Tenderness, - - Mild swelling and edema persist in the patient's right lower extremity and right foot. Chronic venous changes persist in the right gaiter area. These include varicose veins and mild hyperpigmentation. The ulceration on the dorsum of the right foot persists, though quite smaller in size. Dimensions are documented elsewhere. The ulceration involving the dorsum of the right great toe, and at its base, appears to be healed. What remains is near the base of the right second toe. There is no sign of infection or cellulitis. There is a mild amount of bioburden and nonviable tissue present. Skin: No rashes Wound Measurements and Assessment WC - Nurse 1 - General Ulcer Measurement Start: 07/27/19 10:55 Freq: Status: Active Protocol: Activity Type Activity Date Activity User E-Sign Co-Sign Detail Recorded Client Recorded Date Recorded By Document 08/03/19 10:42 [facility] [id number] 08/03/19 10:49 [facility] 08/03/19 10:42 Wound Center Nurse 1 [Ulcer Assessment] #17 R 2nd toe -Combined with other wound No -Current Size (cm) - Length 1.3 -Current Size (cm) - Width 1.1 -Current Size (cm) - Depth 0.1 -Total Square Cm 1.43 -Photo Taken No -Epithelialization None Present -Tunneling No -Undermining/Tunneling No -Circular Undermining No -Exudate Amt Small -Exudate Type Serosanguineous -Wound Margin Distinct, Outline Attached -Granulation Amt Small (1-33%) -Granulation Quality Red -Slough/Fibrin Yes -Necrosis Amt Medium (34-66%) -Necrotic Tissue Type Adherent Slough -Texture (Tara-wound Skin Appearance) Assessed, Scarring -Moisture (Tara-wound Skin Appearance Assessed,Dry/ ) Scaly -Color (Tara-wound Skin Appearance) Assessed -Temperature (Tara-wound Skin No Abnormality Appearance) (Pt Warm) -Tenderness on Palpation (Tara-wound No Skin Appearance) -Ulcer Cleansing Rinsed/ Irrigated with Saline -Foul Odor after Cleansing No -Anesthetic Used 5% Lidocaine Gel [Edema Assessment] -Lower Limb Edema Present Yes -Left Calf (cm) 38.8 -Left Ankle (cm) 23.5 WC - Nurse 2 - General Ulcer CM Notes Start: 07/27/19 10:55 Freq: Status: Active Protocol: Activity Type Activity Date Activity User E-Sign Co-Sign Detail Recorded Client Recorded Date Recorded By Document 08/03/19 11:30 [id number] 08/03/19 11:36 08/03/19 11:30 Wound Center Nurse 2 [Procedure/Treatment] #17 R 2nd toe -Time 11:30 -Correct Patient Yes -Correct Side, Site, Position Yes -Correct Procedure Yes -Procedure Performed Yes -Type of Procedure Debridement -Clinical Debridement Subcutaneous -Post Debridement Size (cm) - Length 1.8 -Post Debridement Size (cm) - Width 1.0 -Post Debridement Size (cm) - Depth 0.1 -Total Square Cm 1.80 -Wound/Ulcer Outcome Not Healed -Ulcer Cleansing Not Cleansed -Foul Odor after Cleansing No -Bioengineered Tissue No -Bleeding Controlled with Pressure -Offloading Yes -Treatment Response Procedure Tolerated Well [See Physician Procedure note for Specifics] Musculoskeletal: No Muscle Wasting Neurological: Cranial nerves II-XII grossly intact, Neuro grossly intact Psych/Mental Status: Normal Affect, Appropriate, Alert and oriented to time, place, person, mood and affect Debridement Note Post-Debridement Measurements/Treatment WC - Nurse 2 - General Ulcer CM Notes Start: 07/27/19 10:55 Freq: Status: Active Protocol: Activity Type Activity Date Activity User E-Sign Co-Sign Detail Recorded Client Recorded Date Recorded By Document 07/27/19 11:15 NITESH [id number] 07/27/19 11:17 NITESH Document 08/03/19 11:30 [id number] 08/03/19 11:36 07/27/19 08/03/19 11:15 11:30 Wound Center Nurse 2 #17 R 2nd toe -Time 11:15 11:30 -Correct Patient Yes Yes -Correct Side, Site, Position Yes Yes -Correct Procedure Yes Yes -Procedure Performed Yes Yes -Type of Procedure Debridement Debridement -Clinical Debridement Subcutaneous Subcutaneous -Post Debridement Size (cm) - Length 1.8 1.8 -Post Debridement Size (cm) - Width 1.0 1.0 -Post Debridement Size (cm) - Depth 0.2 0.1 -Total Square Cm 1.80 1.80 -Wound/Ulcer Outcome Not Healed Not Healed -Ulcer Cleansing Rinsed/ Not Cleansed Irrigated with Saline -Foul Odor after Cleansing No No -Bioengineered Tissue No No -Bleeding Controlled with Pressure Pressure -Offloading No Yes -Treatment Response Procedure Procedure Tolerated Well Tolerated Well Pain Scale: 0-10 Numeric Is Patient Pain Free? Yes Laterality: Right - Dorsal foot Type of Debridement: Excisional debridement Anesthesia Used: 5% Lidocaine Gel Depth: Down to and including healthy tissue, in the subcutaneous layer Percentage of wound debrided: 100 Instrument Used: 5mm curette Tissue Removed: Bioburden and nonviable tissue Severity: Fat Layer Exposed Amount of bleeding with debridement: Mild Bleeding Controlled with: Compression and gauze Assessment/Plan Active Problems Swelling of right lower extremity (Chronic) Edema leg (Chronic) Ulcer of great toe (Chronic) Parkinsons disease (Chronic) History of DVT (deep vein thrombosis) (Chronic) Factor V Leiden mutation (Chronic) Ulcer of right foot (Chronic) Venous hypertension, chronic, with inflammation (Chronic) Varicose veins with inflammation (Chronic) 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 He presented with an ulceration on the dorsum of the right foot, near the base of the right second toe. This appears to be pressure related, and likely due to ill-fitted footwear. Offloading measures are to be continued. These measures have been discussed with the patient. Alternative footwear has been recommended. He has been recently evaluated by Dr. May, and offloading footwear is on order, awaiting to be received. Patient remains on systemic anticoagulation therapy. The patient admits to good compliance within the last week. 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 Rather, he is stayed indoors, with his leg elevated. This implies that he has not been wearing his work boots, thought to be exerting pressure to certain areas of the foot, and resulting in accumulation of sweat, heat, and moisture during daytime working hours. Plan: Debridement has been done as documented above. Procedure was well-tolerated. Offloading measures are to be continued. We are to continue the use of Aquacel silver topically on a daily basis. Patient has completed his course of Levaquin 750 mg p.o. daily for 7 days. Levaquin was prescribed due to cultures which were positive for pseudomonas aeruginosa and Staphylococcus species. Patient is to continue wearing his graduated compression stockings which are of 20 to 30 mmHg compression. These are to be worn on a daily basis. Adequate nutritional intake has been recommended. Patient has been advised to elevate his lower extremities as much as possible. The means by which this is to be accomplished has been discussed. He is to continue sleeping on a flat mattress at night. Patient is to return in 1 week for reassessment. He is to avoid idle sitting and standing. Activity has been encouraged. The patient awaits receipt of his offloading footwear as ordered by Dr. May. 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 The patient is not a smoker. Influenza vaccine was not administered today. The patient weighs 185 pounds. He stands 6 feet 2 inches tall. His BMI is 23.8, which is normal.
[2019-08-10 10:49] VITALS: BP 115/80; PULSE 83; RESP 16; TEMP 37.2; BMI 23.8
--- NOTE | 2019-08-10 11:24 | HP.PCM_ITS ---
(1) Swelling of right lower extremity Status: Chronic Current Visit: Yes Code(s): M79.89 - Other specified soft tissue disorders (2) Edema leg Status: Chronic Current Visit: Yes Code(s): R60.0 - Localized edema (3) Ulcer of great toe Status: Chronic Current Visit: Yes Qualifiers: Laterality: right Non-pressure ulcer stage: with fat layer exposed Qualified Code(s): L97.512 - Non-pressure chronic ulcer of other part of right foot with fat layer exposed Code(s): L97.509 - Non-pressure chronic ulcer of other part of unspecified foot with unspecified severity (4) Parkinsons disease Status: Chronic Current Visit: Yes Code(s): G20 - Parkinson's disease (5) CVA (cerebral vascular accident) Status: Chronic Current Visit: No Qualifiers: Code(s): 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infarction, unspecified (6) History of DVT (deep vein thrombosis) Status: Chronic Current Visit: Yes Code(s): Z86.718 - Personal history of other venous thrombosis and embolism (7) Factor V Leiden mutation Status: Chronic Current Visit: Yes Code(s): D68.51 - Activated protein C resistance (8) Ulcer of right foot Status: Chronic Current Visit: Yes Qualifiers: Non-pressure ulcer stage: with fat layer exposed Code(s): L97.519 - Non-pressure chronic ulcer of other part of right foot with unspecified severity (9) Venous hypertension, chronic, with inflammation Status: Chronic Current Visit: Yes Qualifiers: Laterality: bilateral Qualified Code(s): I87.323 - Chronic venous hypertension (idiopathic) with inflammation of bilateral lower extremity Code(s): I87.329 - Chronic venous hypertension (idiopathic) with inflammation of unspecified lower extremity (10) Varicose veins with inflammation Status: Chronic Current Visit: Yes Code(s): I83.10 - Varicose veins of unspecified lower extremity with inflammation (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 Current Visit: Yes Code(s): I87.091 - Postthrombotic syndrome with other complications of right lower extremity (12) Varicose veins with ulcer and inflammation Status: Chronic Current Visit: Yes Code(s): I83.209 - Varicose veins of unspecified lower extremity with both ulcer of unspecified site and inflammation; L97.909 - Non-pressure chronic ulcer of unspecified part of unspecified lower leg with unspecified severity (13) Chronic venous insufficiency Status: Chronic Current Visit: Yes (14) History of ulcer of lower extremity Status: Chronic Current Visit: Yes Code(s): Z87.2 - Personal history of diseases of the skin and subcutaneous tissue (15) Postphlebitic syndrome with inflammation Status: Chronic Current Visit: Yes Code(s): I87.029 - Postthrombotic syndrome with inflammation of unspecified lower extremity (16) Ulcer, pressure Status: Chronic Current Visit: Yes Qualifiers: Code(s): L89.90 - Pressure ulcer of unspecified site, unspecified stage History of Present Illness Date of Service: 08/10/19 Chief Complaint: Ulceration of the base of the right second toe History of Wound: This is a 69 year-old male who presented with an ulceration on the dorsum of the right foot, near the base of the right second toe. Had been present for approximately 3 weeks. The patient experiences chronic swelling in his right lower extremity. He has a history of chronic venous insufficiency, postphlebitic syndrome with inflammation, varicose veins with inflammation, etc. He has been previously advised to elevate his lower extremities frequently, a void idle standing and sitting, remain active, and to wear graduated compression stockings on a daily basis. However, the patient has been noncompliant with the recommended measures. He claims to sleep on a flat mattress at night. He is active for his age. 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 He typically wears work cristi ots each day, which often become hot and sweaty securely in the summer months. In April 2013, the patient underwent endovenous laser ablation of the right great saphenous vein, the right small saphenous vein, and the right accessory saphenous vein. He has previously been treated for ulcerations near the right medial malleolus and on the dorsum of the right second toe. A noninvasive lower extremity arterial study performed in March 2018 revealed no evidence of significant arterial occlusive disease in the lower extremities. Laboratory studies from November 2018 have been reviewed, with the following results: White blood count 6.3, hemoglobin 14.6, hematocrit 45.2, platelets 194,000, PT 24.0, INR 2.1, sodium 138, potassium 4.2, chloride 104, BUN 23, creatinine 0.84, glucose 101, calcium 8.8. 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 Allergies/Adverse Reactions: Allergies No Known Allergies Allergy (Verified 06/08/19 13:50) Home Medications: Ambulatory Orders Medication Instructions Recorded Carbidopa/Levodopa 25/100 [Sinemet 2 tablet PO TIDAC 12/09/18 25/100] Tamsulosin HCl [Flomax] 0.8 mg PO DAILY@1730 capsule 12/18/18 Warfarin [Coumadin] 8 mg PO DAILY@1700 tablet 12/18/18 tramadol 50 mg tablet 50 mg PO Q6H PRN #50 tab 12/21/18 - Family History Paternal No pertinent history - Patient father with no market history, at age 92, no diabetes, heart disease, cancer history. Maternal Heart Disease - Patient at age 72 secondary to complications from MA, coronary disease. Smoking Status: Never smoker Tobacco Use: Non-smoker Review of Systems Constitutional: Denies: Chills, Fever, Weight Change Eyes: Denies: Pain, Vision Change HEENT: Denies: Difficulty Hearing, Difficulty Swallowing, Sinus Congestion Cardiovascular: Denies: Chest Pain, Palpitations Respiratory: Denies: Cough, Shortness of Breath Gastrointestinal: Denies: Diarrhea, Nausea, Vomiting Genitourinary: Denies: Dysuria, Hematuria Endocrine: Denies: Heat/ Cold Intolerance, Polydipsia, Polyuria Hematologic/ Lymphatic: Denies: Easy Bruising, Easy Bleeding - Physical Exam Vital Signs Temp Pulse Resp BP 98.9 F 83 16 115/80 08/10/19 10:49 08/10/19 10:49 08/10/19 10:49 08/10/19 10:49 General: Alert, Oriented x3, Cooperative, No apparent distress, Well developed, Well nourished HEENT: Atraumatic, PERRLA, EOMI, Normocephalic Oral: Moist Mucosa Neck: No JVD Lungs: Normal air movement Abdomen: Non-Distended Extremities: No clubbing, No cyanosis, No Calf Tenderness, - - Swelling and edema persist in the patient's right foot. This appears to be a chronic condition. The ulceration on the dorsum of the right foot persists. It has decreased in size over the last several weeks. Dimensions are documented elsewhere. It is located at the base of the right second toe, located on the dorsum of the foot. There is no sign of infection or cellulitis. There is a small amount of bioburden and nonviable tissue present. Wound Measurements and Assessment WC - Nurse 1 - General Ulcer Measurement Start: 07/27/19 10:55 Freq: Status: Active Protocol: Activity Type Activity Date Activity User E-Sign Co-Sign Detail Recorded Client Recorded Date Recorded By Document 08/10/19 10:49 [facility] [id number] 08/10/19 10:54 [facility] 08/10/19 10:49 Wound Center Nurse 1 [Ulcer Assessment] #17 R 2nd toe -Combined with other wound No -Current Size (cm) - Length 1.2 -Current Size (cm) - Width 1.9 -Current Size (cm) - Depth 0.1 -Total Square Cm 2.28 -Date of Last Picture (Recall this 08/10/19 field) -Photo Taken Yes -Epithelialization None Present -Tunneling No -Undermining/Tunneling No -Circular Undermining No -Exudate Amt Small -Wound Margin Distinct, Outline Attached -Granulation Amt Small (1-33%) -Granulation Quality Red -Slough/Fibrin Yes -Necrosis Amt Large (67-100%) -Necrotic Tissue Type Adherent Slough -Texture (Tara-wound Skin Appearance) Assessed, Scarring -Moisture (Tara-wound Skin Appearance Assessed,Dry/ ) Scaly -Color (Traa-wound Skin Appearance) Assessed -Temperature (Tara-wound Skin No Abnormality Appearance) (Pt Warm) -Tenderness on Palpation (Tara-wound No Skin Appearance) -Ulcer Cleansing Rinsed/ Irrigated with Saline -Foul Odor after Cleansing No -Anesthetic Used 5% Lidocaine Gel [Edema Assessment] -Lower Limb Edema Present Yes -Right Calf (cm) 38.5 -Right Ankle (cm) 23.2 - Nurse 2 - General Ulcer CM Notes Start: 07/27/19 10:55 Freq: Status: Active Protocol: Activity Type Activity Date Activity User E-Sign Co-Sign Detail Recorded Client Recorded Date Recorded By Document 08/10/19 11:13 [id number] 08/10/19 11:16 08/10/19 11:13 Wound Center Nurse 2 [Procedure/Treatment] #17 R 2nd toe -Time 11:14 -Correct Patient Yes -Correct Side, Site, Position Yes -Correct Procedure Yes -Procedure Performed Yes -Type of Procedure Debridement -Clinical Debridement Subcutaneous -Post Debridement Size (cm) - Length 1.3 -Post Debridement Size (cm) - Width 1.2 -Post Debridement Size (cm) - Depth 0.1 -Total Square Cm 1.56 -Wound/Ulcer Outcome Not Healed -Ulcer Cleansing Not Cleansed -Foul Odor after Cleansing No -Bioengineered Tissue No -Bleeding Controlled with NA -Offloading Yes -Treatment Response Procedure Tolerated Well [See Physician Procedure note for Specifics] Pain Scale: 0-10 Numeric [Pain] -Is Patient Pain Free? Yes Musculoskeletal: No Muscle Wasting Neurological: Cranial nerves II-XII grossly intact, Neuro grossly intact Psych/Mental Status: Normal Affect, Appropriate, Alert and oriented to time, place, person, mood and affect Debridement Note Post-Debridement Measurements/Treatment WC - Nurse 2 - General Ulcer CM Notes Start: 07/27/19 10:55 Freq: Status: Active Protocol: Activity Type Activity Date Activity User E-Sign Co-Sign Detail Recorded Client Recorded Date Recorded By Document 07/27/19 11:15 NITESH [id number] 07/27/19 11:17 NITESH Document 08/03/19 11:30 [id number] 08/03/19 11:36 Document 08/10/19 11:13 [id number] 08/10/19 11:16 07/27/19 08/03/19 08/10/19 11:15 11:30 11:13 Wound Center Nurse 2 #17 R 2nd toe -Time 11:15 11:30 11:14 -Correct Patient Yes Yes Yes -Correct Side, Site, Position Yes Yes Yes -Correct Procedure Yes Yes Yes -Procedure Performed Yes Yes Yes -Type of Procedure Debridement Debridement Debridement -Clinical Debridement Subcutaneous Subcutaneous Subcutaneous -Post Debridement Size (cm) - Length 1.8 1.8 1.3 -Post Debridement Size (cm) - Width 1.0 1.0 1.2 -Post Debridement Size (cm) - Depth 0.2 0.1 0.1 -Total Square Cm 1.80 1.80 1.56 -Wound/Ulcer Outcome Not Healed Not Healed Not Healed -Ulcer Cleansing Rinsed/ Not Cleansed Not Cleansed Irrigated with Saline -Foul Odor after Cleansing No No No -Bioengineered Tissue No No No -Bleeding Controlled with Pressure Pressure NA -Offloading No Yes Yes -Treatment Response Procedure Procedure Procedure Tolerated Well Tolerated Well Tolerated Well Pain Scale: 0-10 Numeric Is Patient Pain Free? Yes Yes Laterality: Right - Second toe, dorsum Type of Debridement: Excisional debridement Anesthesia Used: 5% Lidocaine Gel Depth: Down to and including healthy tissue, in the subcutaneous layer Percentage of wound debrided: 100 Instrument Used: 5mm curette Tissue Removed: Bioburden and nonviable tissue Severity: Fat Layer Exposed Amount of bleeding with debridement: Mild Bleeding Controlled with: Compression and gauze Patient tolerated procedure well Assessment/Plan Active Problems Swelling of right lower extremity (Chronic) Edema leg (Chronic) Ulcer of great toe (Chronic) Parkinsons disease (Chronic) History of DVT (deep vein thrombosis) (Chronic) Factor V Leiden mutation (Chronic) Ulcer of right foot (Chronic) Venous hypertension, chronic, with inflammation (Chronic) Varicose veins with inflammation (Chronic) 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 He presented with an ulceration on the dorsum of the right foot, near the base of the right second toe. This appears to be pressure related, and likely due to ill-fitted footwear. Offloading measures are to be continued. These measures have been discussed with the patient. Alternative footwear has been recommended. He has been recently evaluated by Dr. May, and offloading footwear is on order, awaiting to be received. Patient remains on systemic anticoagulation therapy. The patient admits to good compliance within the last week. 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 Rather, he has stayed indoors, with his leg elevated. This implies that he has not been wearing his work boots, thought to be exerting pressure to certain areas of the foot, and resulting in accumulation of sweat, heat, and moisture during daytime working hours. He has not yet received his offloading shoes, ordered following his consultation with Dr. May. Plan: Debridement has been done as documented above. Procedure was well- tolerated. Offloading measures are to be continued. We are to continue the use of Aquacel silver topically on a daily basis. Patient has completed his course of Levaquin 750 mg p.o. daily for 7 days. Levaquin was prescribed due to cultures which were positive for pseudomonas aeruginosa and Staphylococcus species. Patient is to continue wearing his graduated compression stockings which are of 20 to 30 mmHg compression. These are to be worn on a daily basis. Adequate nutritional intake has been recommended. Patient has been advised to elevate his lower extremities as much as possible. The means by which this is to be accomplished has been discussed. He is to continue sleeping on a flat mattress at night. Patient is to return in 1 week for reassessment. He is to avoid idle sitting and standing. Activity has been encouraged. The patient awaits receipt of his offloading footwear as ordered by Dr. May. 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 The patient is not a smoker. Influenza vaccine was not administered today. The patient weighs 185 pounds. He stands 6 feet 2 inches tall. His BMI is 23.8, which is normal.
[2019-08-17 09:35] VITALS: BP 122/77; PULSE 60; RESP 16; TEMP 36.6; BMI 23.8
--- NOTE | 2019-08-17 10:46 | HP.PCM_ITS ---
(1) Swelling of right lower extremity Status: Chronic Current Visit: Yes Code(s): M79.89 - Other specified soft tissue disorders (2) Edema leg Status: Chronic Current Visit: Yes Code(s): R60.0 - Localized edema (3) Ulcer of great toe Status: Chronic Current Visit: Yes Qualifiers: Laterality: right Non-pressure ulcer stage: with fat layer exposed Qualified Code(s): L97.512 - Non-pressure chronic ulcer of other part of right foot with fat layer exposed Code(s): L97.509 - Non-pressure chronic ulcer of other part of unspecified foot with unspecified severity (4) Parkinsons disease Status: Chronic Current Visit: Yes Code(s): G20 - Parkinson's disease (5) CVA (cerebral vascular accident) Status: Chronic Current Visit: No Qualifiers: Code(s): 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infarction, unspecified (6) History of DVT (deep vein thrombosis) Status: Chronic Current Visit: Yes Code(s): Z86.718 - Personal history of other venous thrombosis and embolism (7) Factor V Leiden mutation Status: Chronic Current Visit: Yes Code(s): D68.51 - Activated protein C resistance (8) Ulcer of right foot Status: Chronic Current Visit: Yes Qualifiers: Non-pressure ulcer stage: with fat layer exposed Code(s): L97.519 - Non-pressure chronic ulcer of other part of right foot with unspecified severity (9) Venous hypertension, chronic, with inflammation Status: Chronic Current Visit: Yes Qualifiers: Laterality: bilateral Qualified Code(s): I87.323 - Chronic venous hypertension (idiopathic) with inflammation of bilateral lower extremity Code(s): I87.329 - Chronic venous hypertension (idiopathic) with inflammation of unspecified lower extremity (10) Varicose veins with inflammation Status: Chronic Current Visit: Yes Code(s): I83.10 - Varicose veins of unspecified lower extremity with inflammation (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 Current Visit: Yes Code(s): I87.091 - Postthrombotic syndrome with other complications of right lower extremity (12) Varicose veins with ulcer and inflammation Status: Chronic Current Visit: Yes Code(s): I83.209 - Varicose veins of unspecified lower extremity with both ulcer of unspecified site and inflammation; L97.909 - Non-pressure chronic ulcer of unspecified part of unspecified lower leg with unspecified severity (13) Chronic venous insufficiency Status: Chronic Current Visit: Yes (14) History of ulcer of lower extremity Status: Chronic Current Visit: Yes Code(s): Z87.2 - Personal history of diseases of the skin and subcutaneous tissue (15) Postphlebitic syndrome with inflammation Status: Chronic Current Visit: Yes Code(s): I87.029 - Postthrombotic syndrome with inflammation of unspecified lower extremity (16) Ulcer, pressure Status: Chronic Current Visit: Yes Qualifiers: Code(s): L89.90 - Pressure ulcer of unspecified site, unspecified stage History of Present Illness Date of Service: 08/17/19 Chief Complaint: Ulceration of the base of the right second toe History of Wound: This is a 69 year-old male who presented with an ulceration on the dorsum of the right foot, near the base of the right second toe. Had been present for approximately 3 weeks. The patient experiences chronic swelling in his right lower extremity. He has a history of chronic venous insufficiency, postphlebitic syndrome with inflammation, varicose veins with inflammation, etc. He has been previously advised to elevate his lower extremities frequently, a void idle standing and sitting, remain active, and to wear graduated compression stockings on a daily basis. However, the patient has been noncompliant with the recommended measures. He claims to sleep on a flat mattress at night. He is active for his age. 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 He typically wears work cristi ots each day, which often become hot and sweaty securely in the summer months. In April 2013, the patient underwent endovenous laser ablation of the right great saphenous vein, the right small saphenous vein, and the right accessory saphenous vein. He has previously been treated for ulcerations near the right medial malleolus and on the dorsum of the right second toe. A noninvasive lower extremity arterial study performed in March 2018 revealed no evidence of significant arterial occlusive disease in the lower extremities. Laboratory studies from November 2018 have been reviewed, with the following results: White blood count 6.3, hemoglobin 14.6, hematocrit 45.2, platelets 194,000, PT 24.0, INR 2.1, sodium 138, potassium 4.2, chloride 104, BUN 23, creatinine 0.84, glucose 101, calcium 8.8. 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 Allergies/Adverse Reactions: Allergies No Known Allergies Allergy (Verified 06/08/19 13:50) Home Medications: Ambulatory Orders Medication Instructions Recorded Carbidopa/Levodopa 25/100 [Sinemet 2 tablet PO TIDAC 12/09/18 25/100] Tamsulosin HCl [Flomax] 0.8 mg PO DAILY@1730 capsule 12/18/18 Warfarin [Coumadin] 8 mg PO DAILY@1700 tablet 12/18/18 tramadol 50 mg tablet 50 mg PO Q6H PRN #50 tab 12/21/18 - Family History Paternal No pertinent history - Patient father with no market history, at age 92, no diabetes, heart disease, cancer history. Maternal Heart Disease - Patient at age 72 secondary to complications from [place], coronary disease. Smoking Status: Never smoker Tobacco Use: Non-smoker Review of Systems Constitutional: Denies: Chills, Fever, Weight Change Eyes: Denies: Pain, Vision Change HEENT: Denies: Difficulty Hearing, Difficulty Swallowing, Sinus Congestion Cardiovascular: Denies: Chest Pain, Palpitations Respiratory: Denies: Cough, Shortness of Breath Gastrointestinal: Denies: Diarrhea, Nausea, Vomiting Genitourinary: Denies: Dysuria, Hematuria Endocrine: Denies: Heat/ Cold Intolerance, Polydipsia, Polyuria Hematologic/ Lymphatic: Denies: Easy Bruising, Easy Bleeding - Physical Exam Vital Signs Temp Pulse Resp BP 98 F 60 16 122/77 H 08/17/19 09:35 08/17/19 09:35 08/17/19 09:35 08/17/19 09:35 General: Alert, Oriented x3, Cooperative, No apparent distress, Well developed, Well nourished HEENT: Atraumatic, PERRLA, EOMI, Normocephalic Oral: Moist Mucosa Neck: No JVD Lungs: Normal air movement Abdomen: Non-Distended Extremities: No clubbing, No cyanosis, No Calf Tenderness, - - The swelling in the right foot persist, which is chronic in nature. The ulceration near the base of the right second toe, on the dorsum of the foot, persists. There is little changed in size or appearance. There is no sign of infection or cellulitis. Dimensions are documented elsewhere. There is a moderate amount of bioburden. Skin: No rashes Wound Measurements and Assessment WC - Nurse 1 - General Ulcer Measurement Start: 07/27/19 10:55 Freq: Status: Active Protocol: Activity Type Activity Date Activity User E-Sign Co-Sign Detail Recorded Client Recorded Date Recorded By Document 08/17/19 09:35 [facility] [id number] 08/17/19 09:39 [facility] 08/17/19 09:35 Wound Center Nurse 1 [Ulcer Assessment] #17 R 2nd toe -Combined with other wound No -Current Size (cm) - Length 1.5 -Current Size (cm) - Width 0.6 -Current Size (cm) - Depth 0.1 -Total Square Cm 0.90 -Photo Taken No -Epithelialization Small 1-33% -Tunneling No -Undermining/Tunneling No -Circular Undermining No -Exudate Amt Small -Exudate Type Serous -Wound Margin Distinct, Outline Attached -Granulation Amt Small (1-33%) -Granulation Quality Red -Slough/Fibrin Yes -Necrosis Amt Medium (34-66%) -Necrotic Tissue Type Adherent Slough -Texture (Tara-wound Skin Appearance) Assessed, Scarring -Moisture (Tara-wound Skin Appearance Assessed,Dry/ ) Scaly -Color (Tara-wound Skin Appearance) Assessed -Temperature (Tara-wound Skin No Abnormality Appearance) (Pt Warm) -Tenderness on Palpation (Tara-wound No Skin Appearance) -Ulcer Cleansing Rinsed/ Irrigated with Saline -Foul Odor after Cleansing No -Anesthetic Used 5% Lidocaine Gel [Edema Assessment] -Lower Limb Edema Present Yes -Right Calf (cm) 38 -Right Ankle (cm) 23.1 - Nurse 2 - General Ulcer CM Notes Start: 07/27/19 10:55 Freq: Status: Active Protocol: Activity Type Activity Date Activity User E-Sign Co-Sign Detail Recorded Client Recorded Date Recorded By Document 08/17/19 10:37 NITESH [id number] 08/17/19 10:39 08/17/19 10:37 Wound Center Nurse 2 [Procedure/Treatment] #17 R 2nd toe -Time 10:39 -Correct Patient Yes -Correct Side, Site, Position Yes -Correct Procedure Yes -Procedure Performed Yes -Type of Procedure Debridement -Clinical Debridement Subcutaneous -Post Debridement Size (cm) - Length 1.5 -Post Debridement Size (cm) - Width 0.7 -Post Debridement Size (cm) - Depth 0.2 -Total Square Cm 1.05 -Wound/Ulcer Outcome Not Healed -Ulcer Cleansing Rinsed/ Irrigated with Saline -Foul Odor after Cleansing No -Bioengineered Tissue No -Bleeding Controlled with Pressure -Offloading No -Treatment Response Procedure Tolerated Well [See Physician Procedure note for Specifics] Pain Scale: 0-10 Numeric [Pain] -Is Patient Pain Free? Yes Musculoskeletal: No Muscle Wasting Neurological: Cranial nerves II-XII grossly intact, Neuro grossly intact Psych/Mental Status: Normal Affect, Appropriate, Alert and oriented to time, place, person, mood and affect Debridement Note Post-Debridement Measurements/Treatment - Nurse 2 - General Ulcer CM Notes Start: 07/27/19 10:55 Freq: Status: Active Protocol: Activity Type Activity Date Activity User E-Sign Co-Sign Detail Recorded Client Recorded Date Recorded By Document 07/27/19 11:15 NITESH [id number] 07/27/19 11:17 NITESH Document 08/03/19 11:30 [id number] 08/03/19 11:36 Document 08/10/19 11:13 [id number] 08/10/19 11:16 Document 08/17/19 10:37 NITESH [id number] 08/17/19 10:39 07/27/19 08/03/19 08/10/19 11:15 11:30 11:13 Wound Center Nurse 2 #17 R 2nd toe -Time 11:15 11:30 11:14 -Correct Patient Yes Yes Yes -Correct Side, Site, Position Yes Yes Yes -Correct Procedure Yes Yes Yes -Procedure Performed Yes Yes Yes -Type of Procedure Debridement Debridement Debridement -Clinical Debridement Subcutaneous Subcutaneous Subcutaneous -Post Debridement Size (cm) - Length 1.8 1.8 1.3 -Post Debridement Size (cm) - Width 1.0 1.0 1.2 -Post Debridement Size (cm) - Depth 0.2 0.1 0.1 -Total Square Cm 1.80 1.80 1.56 -Wound/Ulcer Outcome Not Healed Not Healed Not Healed -Ulcer Cleansing Rinsed/ Not Cleansed Not Cleansed Irrigated with Saline -Foul Odor after Cleansing No No No -Bioengineered Tissue No No No -Bleeding Controlled with Pressure Pressure NA -Offloading No Yes Yes -Treatment Response Procedure Procedure Procedure Tolerated Well Tolerated Well Tolerated Well Pain Scale: 0-10 Numeric Is Patient Pain Free? Yes Yes 08/17/19 10:37 Wound Center Nurse 2 #17 R 2nd toe -Time 10:39 -Correct Patient Yes -Correct Side, Site, Position Yes -Correct Procedure Yes -Procedure Performed Yes -Type of Procedure Debridement -Clinical Debridement Subcutaneous -Post Debridement Size (cm) - Length 1.5 -Post Debridement Size (cm) - Width 0.7 -Post Debridement Size (cm) - Depth 0.2 -Total Square Cm 1.05 -Wound/Ulcer Outcome Not Healed -Ulcer Cleansing Rinsed/ Irrigated with Saline -Foul Odor after Cleansing No -Bioengineered Tissue No -Bleeding Controlled with Pressure -Offloading No -Treatment Response Procedure Tolerated Well Pain Scale: 0-10 Numeric Is Patient Pain Free? Yes Laterality: Right - Foot, at the base of second toe, dorsally Type of Debridement: Excisional debridement Anesthesia Used: 5% Lidocaine Gel Depth: Down to and including healthy tissue, in the subcutaneous layer Percentage of wound debrided: 100 Instrument Used: 5mm curette Severity: Fat Layer Exposed Amount of bleeding with debridement: Mild Bleeding Controlled with: Compression and gauze Patient tolerated procedure well Assessment/Plan Active Problems Swelling of right lower extremity (Chronic) Edema leg (Chronic) Ulcer of great toe (Chronic) Parkinsons disease (Chronic) History of DVT (deep vein thrombosis) (Chronic) Factor V Leiden mutation (Chronic) Ulcer of right foot (Chronic) Venous hypertension, chronic, with inflammation (Chronic) Varicose veins with inflammation (Chronic) 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 He presented with an ulceration on the dorsum of the right foot, near the base of the right second toe. This appears to be pressure related, and likely due to ill-fitted footwear. Offloading measures are to be continued. These measures have been discussed with the patient. Alternative footwear has been recommended. He has been recently evaluated by Dr. May, and offloading footwear is on order, awaiting to be received. Patient remains on systemic anticoagulation therapy. The patient admits to good compliance within the last week. 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 Rather, he has stayed indoors, with his leg elevated. This implies that he has not been wearing his work boots, thought to be exerting pressure to certain areas of the foot, and resulting in accumulation of sweat, heat, and moisture during daytime working hours. He has not yet received his offloading shoes, ordered following his consultation with Dr. May. Plan: Debridement has been done as documented above. Procedure was well- tolerated. Offloading measures are to be continued. We are to continue the use of Aquacel silver topically on a daily basis. Patient has completed his course of Levaquin 750 mg p.o. daily for 7 days. Levaquin was prescribed due to cultures which were positive for pseudomonas aeruginosa and Staphylococcus species. Patient is to continue wearing his graduated compression stockings which are of 20 to 30 mmHg compression. These are to be worn on a daily basis. Adequate nutritional intake has been recommended. Patient has been advised to elevate his lower extremities as much as possible. The means by which this is to be accomplished has been discussed. He is to continue sleeping on a flat mattress at night. Patient is to return in 1 week for reassessment. He is to avoid idle sitting and standing. Activity has been encouraged. The patient awaits receipt of his offloading footwear as ordered by Dr. May. 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 We are to submit a request for the use of a skin graft substitute. A request for preauthorization using [employer] will be submitted to the patient's insurance company. The patient is not a smoker. Influenza vaccine was not administered today. The patient weighs 185 pounds. He stands 6 feet 2 inches tall. His BMI is 23.8, which is normal.
== END 2019-08-21 23:59 ==
LOC: WC 09:15
PROVIDERS: Family Provider Family Medicine; PCP Family Medicine; Referring Provider Surgery; Visit Provider Surgery
DX: I83.215 Varicose veins of right lower extremity with both ulcer other part of foot and inflammation (principal); L97.512 Non-pressure chronic ulcer of other part of right foot with fat layer exposed; R60.0 Localized edema; G20 Parkinson's disease; Z86.718 Personal history of other venous thrombosis and embolism; Z91.19 Patient's noncompliance with other medical treatment and regimen; D68.51 Activated protein C resistance; Z79.899 Other long term (current) drug therapy; Z79.01 Long term (current) use of anticoagulants
CPT/HCPCS: 11042

== ENCOUNTER 2019-09-07 10:30 | Outpatient (RCR) | payer MEDICARE, OTHER, SELFPAY ==
[2019-08-22 00:53] VITALS: BP 122/77; PULSE 60; RESP 16; TEMP 36.6
[2019-08-24 10:42] VITALS: BP 126/79; PULSE 68; RESP 18; TEMP 36.2; BMI 23.8
--- NOTE | 2019-08-24 11:38 | PCM.WC.HP ---
(1) Swelling of right lower extremity Status: Chronic Current Visit: Yes Code(s): M79.89 - Other specified soft tissue disorders (2) Edema leg Status: Chronic Current Visit: Yes Code(s): R60.0 - Localized edema (3) Ulcer of great toe Status: Chronic Current Visit: Yes Qualifiers: Laterality: right Non-pressure ulcer stage: with fat layer exposed Qualified Code(s): L97.512 - Non-pressure chronic ulcer of other part of right foot with fat layer exposed Code(s): L97.509 - Non-pressure chronic ulcer of other part of unspecified foot with unspecified severity (4) Parkinsons disease Status: Chronic Current Visit: No Code(s): G20 - Parkinson's disease (5) CVA (cerebral vascular accident) Status: Chronic Current Visit: No Qualifiers: Code(s): 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infarction, unspecified (6) History of DVT (deep vein thrombosis) Status: Chronic Current Visit: Yes Code(s): Z86.718 - Personal history of other venous thrombosis and embolism (7) Factor V Leiden mutation Status: Chronic Current Visit: Yes Code(s): D68.51 - Activated protein C resistance (8) Closed right hip fracture Status: Inactive Current Visit: No Qualifiers: Code(s): S72.001A - Fracture of unspecified part of neck of right femur, initial encounter for closed fracture (9) Ulcer of right foot Status: Chronic Current Visit: Yes Qualifiers: Non-pressure ulcer stage: with fat layer exposed Code(s): L97.519 - Non-pressure chronic ulcer of other part of right foot with unspecified severity (10) Venous hypertension, chronic, with inflammation Status: Chronic Current Visit: Yes Qualifiers: Laterality: bilateral Code(s): I87.329 - Chronic venous hypertension (idiopathic) with inflammation of unspecified lower extremity (11) Varicose veins with inflammation Status: Chronic Current Visit: Yes Code(s): I83.10 - Varicose veins of unspecified lower extremity with inflammation (12) Venous hypertension, chronic, with ulcer and inflammation Status: Resolved Current Visit: Yes Qualifiers: Laterality: bilateral Qualified Code(s): I87.333 - Chronic venous hypertension (idiopathic) with ulcer and inflammation of bilateral lower extremity; L97.919 - Non-pressure chronic ulcer of unspecified part of right lower leg with unspecified severity; L97.929 - Non-pressure chronic ulcer of unspecified part of left lower leg with unspecified severity Code(s): I87.339 - Chronic venous hypertension (idiopathic) with ulcer and inflammation of unspecified lower extremity (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 Current Visit: Yes Code(s): I87.091 - Postthrombotic syndrome with other complications of right lower extremity (14) Varicose veins with ulcer and inflammation Status: Chronic Current Visit: Yes Code(s): I83.209 - Varicose veins of unspecified lower extremity with both ulcer of unspecified site and inflammation; L97.909 - Non-pressure chronic ulcer of unspecified part of unspecified lower leg with unspecified severity (15) Chronic venous insufficiency Status: Chronic Current Visit: Yes (16) Venous ulcer of ankle Status: Resolved Current Visit: No Code(s): I83.003 - Varicose veins of unspecified lower extremity with ulcer of ankle (17) Venous ulcer of right lower extremity with varicose veins Status: Inactive Current Visit: No Code(s): I83.019 - Varicose veins of right lower extremity with ulcer of unspecified site (18) History of ulcer of lower extremity Status: Chronic Current Visit: Yes Code(s): Z87.2 - Personal history of diseases of the skin and subcutaneous tissue (19) Postphlebitic syndrome with inflammation Status: Chronic Current Visit: Yes Code(s): I87.029 - Postthrombotic syndrome with inflammation of unspecified lower extremity (20) Ulcer, pressure Status: Chronic Current Visit: Yes Qualifiers: Pressure injury location: dorsum of foot Code(s): L89.90 - Pressure ulcer of unspecified site, unspecified stage History of Present Illness Date of Service: 08/24/19 Chief Complaint: Ulceration of the base of the right second toe History of Wound: This is a 69 year-old male who presented with an ulceration on the dorsum of the right foot, near the base of the right second toe. Had been present for approximately 3 weeks. The patient experiences chronic swelling in his right lower extremity. He has a history of chronic venous insufficiency, postphlebitic syndrome with inflammation, varicose veins with inflammation, etc. He has been previously advised to elevate his lower extremities frequently, avoid idle standing and sitting, remain active, and to wear graduated compression stockings on a daily basis. However, the patient has been noncompliant with the recommended measures. He claims to sleep on a flat mattress at night. He is active for his age. 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 He typically wears work boots each day, which often become hot and sweaty securely in the summer months. In April 2013, the patient underwent endovenous laser ablation of the right great saphenous vein, the right small saphenous vein, and the right accessory saphenous vein. He has previously been treated for ulcerations near the right medial malleolus and on the dorsum of the right second toe. A noninvasive lower extremity arterial study performed in March 2018 revealed no evidence of significant arterial occlusive disease in the lower extremities. Laboratory studies from November 2018 have been reviewed, with the following results: White blood count 6.3, hemoglobin 14.6, hematocrit 45.2, platelets 194,000, PT 24.0, INR 2.1, sodium 138, potassium 4.2, chloride 104, BUN 23, creatinine 0.84, glucose 101, calcium 8.8. 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 Allergies/Adverse Reactions: Allergies No Known Allergies Allergy (Verified 06/08/19 13:50) Home Medications: Ambulatory Orders Medication Instructions Recorded Carbidopa/Levodopa 25/100 [Sinemet 2 tablet PO TIDAC 12/09/18 25/100] Tamsulosin HCl [Flomax] 0.8 mg PO DAILY@1730 capsule 12/18/18 Warfarin [Coumadin] 8 mg PO DAILY@1700 tablet 12/18/18 tramadol 50 mg tablet 50 mg PO Q6H PRN #50 tab 12/21/18 - Family History Paternal No pertinent history - Patient father with no market history, at age 92, no diabetes, heart disease, cancer history. Maternal Heart Disease - Patient at age 72 secondary to complications from [place], coronary disease. Smoking Status: Never smoker Tobacco Use: Non-smoker Review of Systems Constitutional: Denies: Chills, Fever, Weight Change Eyes: Denies: Pain, Vision Change HEENT: Denies: Difficulty Hearing, Difficulty Swallowing, Sinus Congestion Cardiovascular: Denies: Chest Pain, Palpitations Respiratory: Denies: Cough, Shortness of Breath Gastrointestinal: Denies: Diarrhea, Nausea, Vomiting Genitourinary: Denies: Dysuria, Hematuria Endocrine: Denies: Heat/ Cold Intolerance, Polydipsia, Polyuria Hematologic/ Lymphatic: Denies: Easy Bruising, Easy Bleeding - Physical Exam Vital Signs Temp Pulse Resp BP 97.1 F L 68 18 126/79 H 08/24/19 10:42 08/24/19 10:42 08/24/19 10:42 08/24/19 10:42 General: Alert, Oriented x3, Cooperative, No apparent distress, Well developed, Well nourished HEENT: Atraumatic, PERRLA, EOMI, Normocephalic Oral: Moist Mucosa Neck: No JVD Lungs: Normal air movement Abdomen: Non-Distended Extremities: No clubbing, No cyanosis, No Calf Tenderness, - - Swelling and edema persist in the patient's right lower extremity. There are multiple large varicosities. Lipodermatosclerosis and hyperpigmentation persist as chronic changes. The ulceration on the dorsum of the right foot, near the base of the right second toe, persists. It appears to be smaller in size. There is evidence of peripheral epithelialization. That portion of the ulceration which involve the right great toe is now completely healed. Dimensions are documented elsewhere. There is no sign of infection or cellulitis. There is a moderate amount of bioburden. Skin: No rashes Wound Measurements and Assessment WC - Nurse 1 - General Ulcer Measurement Start: 08/24/19 10:41 Freq: Status: Active Protocol: Activity Type Activity Date Activity User E-Sign Co-Sign Detail Recorded Client Recorded Date Recorded By Document 08/24/19 10:42 DL [id number] 08/24/19 10:46 DL 08/24/19 10:42 Wound Center Nurse 1 [Ulcer Assessment] #17 R 2nd toe -Current Size (cm) - Length 1.6 -Current Size (cm) - Width 1.4 -Current Size (cm) - Depth 0.1 -Total Square Cm 2.24 -Photo Taken No -Exudate Amt Small -Exudate Type Serosanguineous -Wound Margin Thickened -Granulation Amt Small (1-33%) -Granulation Quality [place],Red -Necrosis Amt Small (1-33%) -Necrotic Tissue Type Adherent Slough -Structure Exposed N/A -Texture (Tara-wound Skin Appearance) Scarring -Moisture (Tara-wound Skin Appearance Dry/Scaly ) -Color (Tara-wound Skin Appearance) Hemosiderin Staining -Temperature (Tara-wound Skin No Abnormality Appearance) (Pt Warm) -Tenderness on Palpation (Tara-wound No Skin Appearance) -Ulcer Cleansing Rinsed/ Irrigated with Saline -Foul Odor after Cleansing No -Anesthetic Used 4% Lidocaine Solution [Edema Assessment] -Point of measurement (cm from the 39 medial instep) -Point of Measurement (cm from the 23.1 medial instep) Musculoskeletal: No Muscle Wasting Neurological: Cranial nerves II-XII grossly intact, Neuro grossly intact Psych/Mental Status: Normal Affect, Appropriate, Alert and oriented to time, place, person, mood and affect Debridement Note Laterality: Right - Dorsal foot, at the base of second toe Type of Debridement: Excisional debridement Anesthesia Used: 5% Lidocaine Gel Depth: Down to and including healthy tissue, in the subcutaneous layer Percentage of wound debrided: 100 Instrument Used: 5mm curette Tissue Removed: Bioburden and nonviable tissue Severity: Fat Layer Exposed Amount of bleeding with debridement: Mild Bleeding Controlled with: Compression and gauze Patient tolerated procedure well Following a routine excisional debridement, which was well-tolerated, and 18.0 mm round EpiFix allograft was placed. The allograft was placed topically in the appropriate orientation. Adaptic touch was then applied, and secured in place using Steri-Strips. A dry sterile gauze dressing was then placed to anchor the entire site securely. The procedure was well-tolerated by the patient. 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 He presented with an ulceration on the dorsum of the right foot, near the base of the right second toe. This appears to be pressure related, and likely due to ill-fitted footwear. Offloading measures are to be continued. These measures have been discussed with the patient. Alternative offloading footwear has been obtained. Patient remains on systemic anticoagulation therapy. The patient admits to good compliance within the last several weeks. 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 Rather, staying indoors with his leg elevated. Plan: Debridement has been done as documented above. Procedure was well-tolerated. An EpiFix allograft was applied today, first such allograft application. This site is to be left undisturbed for the next week. The patient will return in 1 week for reassessment. Offloading measures are to be continued. The patient is to continue wearing his graduated compression stockings which are of 20 to 30 mmHg compression. These are to be worn on a daily basis. Adequate nutritional intake has been recommended. Patient has been advised to elevate his lower extremities as much as possible. The means by which this is to be accomplished has been discussed. He is to continue sleeping on a flat mattress at night. Patient is to return in 1 week for reassessment. He is to avoid idle sitting and standing. Activity has been encouraged. The patient is not a smoker. Influenza vaccine was not administered today. The patient weighs 185 pounds. He stands 6 feet 2 inches tall. His BMI is 23.8, which is normal.
[2019-08-31 09:19] VITALS: BP 120/68; PULSE 67; RESP 16; TEMP 37.2; BMI 23.8
--- NOTE | 2019-08-31 10:22 | PCM.WC.HP ---
(1) Swelling of right lower extremity Status: Chronic Current Visit: Yes Code(s): M79.89 - Other specified soft tissue disorders (2) Edema leg Status: Chronic Current Visit: Yes Code(s): R60.0 - Localized edema (3) Ulcer of great toe Status: Chronic Current Visit: Yes Qualifiers: Laterality: right Non-pressure ulcer stage: with fat layer exposed Qualified Code(s): L97.512 - Non-pressure chronic ulcer of other part of right foot with fat layer exposed Code(s): L97.509 - Non-pressure chronic ulcer of other part of unspecified foot with unspecified severity (4) Parkinsons disease Status: Chronic Current Visit: No Code(s): G20 - Parkinson's disease (5) CVA (cerebral vascular accident) Status: Chronic Current Visit: No Qualifiers: Code(s): 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infarction, unspecified (6) History of DVT (deep vein thrombosis) Status: Chronic Current Visit: Yes Code(s): Z86.718 - Personal history of other venous thrombosis and embolism (7) Factor V Leiden mutation Status: Chronic Current Visit: Yes Code(s): D68.51 - Activated protein C resistance (8) Ulcer of right foot Status: Chronic Current Visit: Yes Qualifiers: Non-pressure ulcer stage: with fat layer exposed Code(s): L97.519 - Non-pressure chronic ulcer of other part of right foot with unspecified severity (9) Venous hypertension, chronic, with inflammation Status: Chronic Current Visit: Yes Qualifiers: Laterality: bilateral Code(s): I87.329 - Chronic venous hypertension (idiopathic) with inflammation of unspecified lower extremity (10) Varicose veins with inflammation Status: Chronic Current Visit: Yes Code(s): I83.10 - Varicose veins of unspecified lower extremity with inflammation (11) Venous hypertension, chronic, with ulcer and inflammation Status: Resolved Current Visit: Yes Qualifiers: Laterality: bilateral Qualified Code(s): I87.333 - Chronic venous hypertension (idiopathic) with ulcer and inflammation of bilateral lower extremity; L97.919 - Non-pressure chronic ulcer of unspecified part of right lower leg with unspecified severity; L97.929 - Non-pressure chronic ulcer of unspecified part of left lower leg with unspecified severity Code(s): I87.339 - Chronic venous hypertension (idiopathic) with ulcer and inflammation of unspecified lower extremity (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 Current Visit: Yes Code(s): I87.091 - Postthrombotic syndrome with other complications of right lower extremity (13) Varicose veins with ulcer and inflammation Status: Chronic Current Visit: Yes Code(s): I83.209 - Varicose veins of unspecified lower extremity with both ulcer of unspecified site and inflammation; L97.909 - Non-pressure chronic ulcer of unspecified part of unspecified lower leg with unspecified severity (14) Chronic venous insufficiency Status: Chronic Current Visit: Yes (15) History of ulcer of lower extremity Status: Chronic Current Visit: Yes Code(s): Z87.2 - Personal history of diseases of the skin and subcutaneous tissue (16) Postphlebitic syndrome with inflammation Status: Chronic Current Visit: Yes Code(s): I87.029 - Postthrombotic syndrome with inflammation of unspecified lower extremity (17) Ulcer, pressure Status: Chronic Current Visit: Yes Qualifiers: Pressure injury location: dorsum of foot Code(s): L89.90 - Pressure ulcer of unspecified site, unspecified stage History of Present Illness Date of Service: 08/31/19 Chief Complaint: Ulceration of the base of the right second toe History of Wound: This is a 69 year-old male who presented with an ulceration on the dorsum of the right foot, near the base of the right second toe. Had been present for approximately 3 weeks. The patient experiences chronic swelling in his right lower extremity. He has a history of chronic venous insufficiency, postphlebitic syndrome with inflammation, varicose veins with inflammation, etc. He has been previously advised to elevate his lower extremities frequently, avoid idle standing and sitting, remain active, and to wear graduated compression stockings on a daily basis. However, the patient has been noncompliant with the recommended measures. He claims to sleep on a flat mattress at night. He is active for his age. 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 He typically wears work boots each day, which often become hot and sweaty securely in the summer months. In April 2013, the patient underwent endovenous laser ablation of the right great saphenous vein, the right small saphenous vein, and the right accessory saphenous vein. He has previously been treated for ulcerations near the right medial malleolus and on the dorsum of the right second toe. A noninvasive lower extremity arterial study performed in March 2018 revealed no evidence of significant arterial occlusive disease in the lower extremities. Laboratory studies from November 2018 have been reviewed, with the following results: White blood count 6.3, hemoglobin 14.6, hematocrit 45.2, platelets 194,000, PT 24.0, INR 2.1, sodium 138, potassium 4.2, chloride 104, BUN 23, creatinine 0.84, glucose 101, calcium 8.8. 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 Allergies/Adverse Reactions: Allergies No Known Allergies Allergy (Verified 06/08/19 13:50) Home Medications: Ambulatory Orders Medication Instructions Recorded Carbidopa/Levodopa 25/100 [Sinemet 2 tablet PO TIDAC 12/09/18 25/100] Tamsulosin HCl [Flomax] 0.8 mg PO DAILY@1730 capsule 12/18/18 Warfarin [Coumadin] 8 mg PO DAILY@1700 tablet 12/18/18 tramadol 50 mg tablet 50 mg PO Q6H PRN #50 tab 12/21/18 - Family History Paternal No pertinent history - Patient father with no market history, at age 92, no diabetes, heart disease, cancer history. Maternal Heart Disease - Patient at age 72 secondary to complications from [place], coronary disease. Smoking Status: Never smoker Tobacco Use: Non-smoker Review of Systems Constitutional: Denies: Chills, Fever, Weight Change Eyes: Denies: Pain, Vision Change HEENT: Denies: Difficulty Hearing, Difficulty Swallowing, Sinus Congestion Cardiovascular: Denies: Chest Pain, Palpitations Respiratory: Denies: Cough, Shortness of Breath Gastrointestinal: Denies: Diarrhea, Nausea, Vomiting Genitourinary: Denies: Dysuria, Hematuria Endocrine: Denies: Heat/ Cold Intolerance, Polydipsia, Polyuria Hematologic/ Lymphatic: Denies: Easy Bruising, Easy Bleeding - Physical Exam Vital Signs Temp Pulse Resp BP 98.9 F 67 16 120/68 08/31/19 09:19 12 09:19 08/31/19 09:19 08/31/19 09:19 General: Alert, Oriented x3, Cooperative, No apparent distress, Well developed, Well nourished HEENT: Atraumatic, PERRLA, EOMI, Normocephalic Oral: Moist Mucosa Neck: No JVD Lungs: Normal air movement Abdomen: Non-Distended Extremities: No clubbing, No cyanosis, No Calf Tenderness, - - Mild swelling persists in the distal right lower extremity and foot. There appears to have been significant improvement since the initial EpiFix allograft placed 1 week ago. There is evidence of new epithelial growth. A small ulcer persists on the dorsum of the right foot, at the base of the right second toe. Dimensions are documented elsewhere. There is no sign of infection or cellulitis. The remnants of the prior allograft remain. Skin: No rashes Wound Measurements and Assessment WC - Nurse 1 - General Ulcer Measurement Start: 08/24/19 10:41 Freq: Status: Active Protocol: Activity Type Activity Date Activity User E-Sign Co-Sign Detail Recorded Client Recorded Date Recorded By Document 08/31/19 09:19 [facility] [id number] 08/31/19 09:26 [facility] 08/31/19 09:19 Wound Center Nurse 1 [Ulcer Assessment] #17 R 2nd toe -Combined with other wound No -Current Size (cm) - Length 0.3 -Current Size (cm) - Width 0.6 -Current Size (cm) - Depth 0.1 -Total Square Cm 0.18 -Date of Last Picture (Recall this 08/31/19 field) -Photo Taken Yes -Epithelialization Medium 34-66% -Tunneling No -Undermining/Tunneling No -Circular Undermining No -Exudate Amt Small -Exudate Type Serosanguineous -Wound Margin Distinct, Outline Attached -Granulation Amt Small (1-33%) -Granulation Quality Red -Slough/Fibrin Yes -Necrosis Amt Medium (34-66%) -Necrotic Tissue Type Adherent Slough -Texture (Tara-wound Skin Appearance) Assessed, Scarring -Moisture (Tara-wound Skin Appearance Assessed,Dry/ ) Scaly -Color (Tara-wound Skin Appearance) Assessed -Temperature (Tara-wound Skin No Abnormality Appearance) (Pt Warm) -Tenderness on Palpation (Tara-wound No Skin Appearance) -Ulcer Cleansing SOAPY WATER -Foul Odor after Cleansing No -Anesthetic Used 5% Lidocaine Gel [Edema Assessment] -Lower Limb Edema Present Yes -Right Calf (cm) 40.1 -Right Ankle (cm) 23.5 WC - Nurse 2 - General Ulcer CM Notes Start: 08/24/19 10:41 Freq: Status: Active Protocol: Activity Type Activity Date Activity User E-Sign Co-Sign Detail Recorded Client Recorded Date Recorded By Document 08/31/19 10:06 DV [id number] 08/31/19 10:17 DV 08/31/19 10:06 Wound Center Nurse 2 [Procedure/Treatment] #17 R 2nd toe -Time 10:08 -Correct Patient Yes -Correct Side, Site, Position Yes -Correct Procedure Yes -Procedure Performed Yes -Type of Procedure Debridement -Clinical Debridement Subcutaneous -Post Debridement Size (cm) - Length 0.6 -Post Debridement Size (cm) - Width 0.6 -Post Debridement Size (cm) - Depth 0.2 -Total Square Cm 0.36 -Wound/Ulcer Outcome Not Healed -Ulcer Cleansing Rinsed/ Irrigated with Saline -Foul Odor after Cleansing No -Bioengineered Tissue Yes -Type of bioengineered Tissue EPIFIX -Expiration Date 03/22/24 -Product Lot Number [id number] -Percent Used 100 -Saline Lot Number [id number] -Topical Lidocaine (%) 5 -Bleeding Controlled with Pressure -Offloading No -Type of Offloading Surgical Shoe -Treatment Response Procedure Tolerated Well [See Physician Procedure note for Specifics] Pain Scale: 0-10 Numeric [Pain] -Is Patient Pain Free? Yes Musculoskeletal: No Muscle Wasting Neurological: Cranial nerves II-XII grossly intact, Neuro grossly intact Psych/Mental Status: Normal Affect, Appropriate, Alert and oriented to time, place, person, mood and affect Debridement Note Post-Debridement Measurements/Treatment WC - Nurse 2 - General Ulcer CM Notes Start: 08/24/19 10:41 Freq: Status: Active Protocol: Activity Type Activity Date Activity User E-Sign Co-Sign Detail Recorded Client Recorded Date Recorded By Document 08/31/19 10:06 DV [id number] 08/31/19 10:17 DV 08/31/19 10:06 Wound Center Nurse 2 #17 R 2nd toe -Time 10:08 -Correct Patient Yes -Correct Side, Site, Position Yes -Correct Procedure Yes -Procedure Performed Yes -Type of Procedure Debridement -Clinical Debridement Subcutaneous -Post Debridement Size (cm) - Length 0.6 -Post Debridement Size (cm) - Width 0.6 -Post Debridement Size (cm) - Depth 0.2 -Total Square Cm 0.36 -Wound/Ulcer Outcome Not Healed -Ulcer Cleansing Rinsed/ Irrigated with Saline -Foul Odor after Cleansing No -Bioengineered Tissue Yes -Type of bioengineered Tissue EPIFIX -Expiration Date 03/22/24 -Product Lot Number [id number] -Percent Used 100 -Saline Lot Number [id number] -Topical Lidocaine (%) 5 -Bleeding Controlled with Pressure -Offloading No -Type of Offloading Surgical Shoe -Treatment Response Procedure Tolerated Well Pain Scale: 0-10 Numeric Is Patient Pain Free? Yes Laterality: Right - Dorsal foot Type of Debridement: Excisional debridement Anesthesia Used: 5% Lidocaine Gel Depth: Down to and including healthy tissue, in the subcutaneous layer Percentage of wound debrided: 100 Instrument Used: 3mm curette Tissue Removed: Small amount of bioburden and remnants of prior allograft Severity: Fat Layer Exposed Amount of bleeding with debridement: Mild Bleeding Controlled with: Compression and gauze Patient tolerated procedure well Following a routine excisional debridement, which was well-tolerated by the patient, an 18 mm EpiFix allograft was selected for application. Upon removal from its packaging, the allograft was placed in the appropriate orientation at the site of the remaining ulcer. It was then moistened with sterile saline. It was then anchored in place with Adaptic Touch and Steri-Strips. A dry sterile gauze dressing was then applied. The procedure was well-tolerated by the patient. 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 He presented with an ulceration on the dorsum of the right foot, near the base of the right second toe. This appears to be pressure related, and likely due to ill-fitted footwear. Offloading measures are to be continued. These measures have been discussed with the patient. Alternative offloading footwear has been obtained. Patient remains on systemic anticoagulation therapy. The patient admits to good compliance within the last several weeks. 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 Rather, staying indoors with his leg elevated. Plan: Debridement has been done as documented above. Procedure was well-tolerated. An EpiFix allograft was applied today, the second such allograft application. This site is to be left undisturbed for the next week. The patient will return in 1 week for reassessment. Offloading measures are to be continued. The patient is to continue wearing his graduated compression stockings which are of 20 to 30 mmHg compression. These are to be worn on a daily basis. Adequate nutritional intake has been recommended. Patient has been advised to elevate his lower extremities as much as possible. The means by which this is to be accomplished has been discussed. He is to continue sleeping on a flat mattress at night. Patient is to return in 1 week for reassessment. He is to avoid idle sitting and standing. Activity has been encouraged. The patient is not a smoker. Influenza vaccine was not administered today. The patient weighs 185 pounds. He stands 6 feet 2 inches tall. His BMI is 23.8, which is normal.
[2019-09-07 10:05] VITALS: BP 98/75; PULSE 86; RESP 18; TEMP 36.6; BMI 23.8
--- NOTE | 2019-09-07 10:43 | PCM.WC.HP ---
(1) Swelling of right lower extremity Status: Chronic Current Visit: Yes Code(s): M79.89 - Other specified soft tissue disorders (2) Edema leg Status: Chronic Current Visit: Yes Code(s): R60.0 - Localized edema (3) Ulcer of great toe Status: Chronic Current Visit: Yes Qualifiers: Laterality: right Non-pressure ulcer stage: with fat layer exposed Qualified Code(s): L97.512 - Non-pressure chronic ulcer of other part of right foot with fat layer exposed Code(s): L97.509 - Non-pressure chronic ulcer of other part of unspecified foot with unspecified severity (4) Parkinsons disease Status: Chronic Current Visit: No Code(s): G20 - Parkinson's disease (5) CVA (cerebral vascular accident) Status: Chronic Current Visit: No Qualifiers: Code(s): 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infarction, unspecified (6) History of DVT (deep vein thrombosis) Status: Chronic Current Visit: Yes Code(s): Z86.718 - Personal history of other venous thrombosis and embolism (7) Factor V Leiden mutation Status: Chronic Current Visit: Yes Code(s): D68.51 - Activated protein C resistance (8) Ulcer of right foot Status: Chronic Current Visit: Yes Qualifiers: Non-pressure ulcer stage: with fat layer exposed Code(s): L97.519 - Non-pressure chronic ulcer of other part of right foot with unspecified severity (9) Venous hypertension, chronic, with inflammation Status: Chronic Current Visit: Yes Qualifiers: Laterality: bilateral Code(s): I87.329 - Chronic venous hypertension (idiopathic) with inflammation of unspecified lower extremity (10) Varicose veins with inflammation Status: Chronic Current Visit: Yes Code(s): I83.10 - Varicose veins of unspecified lower extremity with inflammation (11) Venous hypertension, chronic, with ulcer and inflammation Status: Resolved Current Visit: Yes Qualifiers: Laterality: bilateral Qualified Code(s): I87.333 - Chronic venous hypertension (idiopathic) with ulcer and inflammation of bilateral lower extremity; L97.919 - Non-pressure chronic ulcer of unspecified part of right lower leg with unspecified severity; L97.929 - Non-pressure chronic ulcer of unspecified part of left lower leg with unspecified severity Code(s): I87.339 - Chronic venous hypertension (idiopathic) with ulcer and inflammation of unspecified lower extremity (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 Current Visit: Yes Code(s): I87.091 - Postthrombotic syndrome with other complications of right lower extremity (13) Varicose veins with ulcer and inflammation Status: Chronic Current Visit: Yes Code(s): I83.209 - Varicose veins of unspecified lower extremity with both ulcer of unspecified site and inflammation; L97.909 - Non-pressure chronic ulcer of unspecified part of unspecified lower leg with unspecified severity (14) Chronic venous insufficiency Status: Chronic Current Visit: Yes (15) History of ulcer of lower extremity Status: Chronic Current Visit: Yes Code(s): Z87.2 - Personal history of diseases of the skin and subcutaneous tissue (16) Postphlebitic syndrome with inflammation Status: Chronic Current Visit: Yes Code(s): I87.029 - Postthrombotic syndrome with inflammation of unspecified lower extremity (17) Ulcer, pressure Status: Chronic Current Visit: Yes Qualifiers: Pressure injury location: dorsum of foot Code(s): L89.90 - Pressure ulcer of unspecified site, unspecified stage History of Present Illness Date of Service: 09/07/19 Chief Complaint: Ulceration of the base of the right second toe History of Wound: This is a 69 year-old male who presented with an ulceration on the dorsum of the right foot, near the base of the right second toe. Had been present for approximately 3 weeks. The patient experiences chronic swelling in his right lower extremity. He has a history of chronic venous insufficiency, postphlebitic syndrome with inflammation, varicose veins with inflammation, etc. He has been previously advised to elevate his lower extremities frequently, avoid idle standing and sitting, remain active, and to wear graduated compression stockings on a daily basis. However, the patient has been noncompliant with the recommended measures. He claims to sleep on a flat mattress at night. He is active for his age. 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 He typically wears work boots each day, which often become hot and sweaty securely in the summer months. In April 2013, the patient underwent endovenous laser ablation of the right great saphenous vein, the right small saphenous vein, and the right accessory saphenous vein. He has previously been treated for ulcerations near the right medial malleolus and on the dorsum of the right second toe. A noninvasive lower extremity arterial study performed in March 2018 revealed no evidence of significant arterial occlusive disease in the lower extremities. Laboratory studies from November 2018 have been reviewed, with the following results: White blood count 6.3, hemoglobin 14.6, hematocrit 45.2, platelets 194,000, PT 24.0, INR 2.1, sodium 138, potassium 4.2, chloride 104, BUN 23, creatinine 0.84, glucose 101, calcium 8.8. 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 Allergies/Adverse Reactions: Allergies No Known Allergies Allergy (Verified 06/08/19 13:50) Home Medications: Ambulatory Orders Medication Instructions Recorded Carbidopa/Levodopa 25/100 [Sinemet 2 tablet PO TIDAC 12/09/18 25/100] Tamsulosin HCl [Flomax] 0.8 mg PO DAILY@1730 capsule 12/18/18 Warfarin [Coumadin] 8 mg PO DAILY@1700 tablet 12/18/18 tramadol 50 mg tablet 50 mg PO Q6H PRN #50 tab 12/21/18 - Family History Paternal No pertinent history - Patient father with no market history, at age 92, no diabetes, heart disease, cancer history. Maternal Heart Disease - Patient at age 72 secondary to complications from ID, coronary disease. Smoking Status: Never smoker Tobacco Use: Non-smoker Review of Systems Constitutional: Denies: Chills, Fever, Weight Change Eyes: Denies: Pain, Vision Change HEENT: Denies: Difficulty Hearing, Difficulty Swallowing, Sinus Congestion Cardiovascular: Denies: Chest Pain, Palpitations Respiratory: Denies: Cough, Shortness of Breath Gastrointestinal: Denies: Diarrhea, Nausea, Vomiting Genitourinary: Denies: Dysuria, Hematuria Endocrine: Denies: Heat/ Cold Intolerance, Polydipsia, Polyuria Hematologic/ Lymphatic: Denies: Easy Bruising, Easy Bleeding - Physical Exam Vital Signs Temp Pulse Resp BP 97.9 F 86 18 98/75 09/07/19 10:05 09/07/19 10:05 09/07/19 10:05 09/07/19 10:05 General: Alert, Oriented x3, Cooperative, No apparent distress, Well developed, Well nourished HEENT: Atraumatic, PERRLA, EOMI, Normocephalic Oral: Moist Mucosa Neck: No JVD Lungs: Normal air movement Abdomen: Non-Distended Extremities: No clubbing, No cyanosis, No Calf Tenderness, - - Mild swelling and edema persist in the patient's right foot. Multiple large varicosities are noted in the right lower extremity. Lipodermatosclerosis and hyperpigmentation persist as chronic changes. The ulceration on the dorsum of the right foot, near the base of the right second toe, appears to be completely epithelialized. There is no sign of infection or cellulitis at the site. Skin: No rashes Wound Measurements and Assessment WC - Nurse 1 - General Ulcer Measurement Start: 08/24/19 10:41 Freq: Status: Active Protocol: Activity Type Activity Date Activity User E-Sign Co-Sign Detail Recorded Client Recorded Date Recorded By Document 09/07/19 10:05 NITESH [id number] 09/07/19 10:12 NITESH 09/07/19 10:05 Wound Center Nurse 1 [Ulcer Assessment] #17 R 2nd toe -Combined with other wound No -Current Size (cm) - Length 0.6 -Current Size (cm) - Width 0.4 -Current Size (cm) - Depth 0.2 -Total Square Cm 0.24 -Photo Taken Yes -Epithelialization Small 1-33% -Tunneling No -Undermining/Tunneling No -Circular Undermining No -Exudate Amt Medium -Exudate Type Serosanguineous -Wound Margin Flat & Intact -Granulation Amt Small (1-33%) -Granulation Quality Wilburn -Slough/Fibrin Yes -Necrosis Amt Medium (34-66%) -Necrotic Tissue Type Adherent Slough -Structure Exposed N/A -Texture (Tara-wound Skin Appearance) Assessed, Localized Edema -Moisture (Tara-wound Skin Appearance Assessed,Dry/ ) Scaly -Color (Tara-wound Skin Appearance) Assessed -Temperature (Tara-wound Skin No Abnormality Appearance) (Pt Warm) -Tenderness on Palpation (Tara-wound No Skin Appearance) -Ulcer Cleansing Wound Cleanser -Foul Odor after Cleansing No -Anesthetic Used 4% Lidocaine Solution [Edema Assessment] -Lower Limb Edema Present Yes -Right Calf (cm) 39.4 -Right Ankle (cm) 23.0 Musculoskeletal: No Muscle Wasting Neurological: Cranial nerves II-XII grossly intact, Neuro grossly intact Psych/Mental Status: Normal Affect, Appropriate, Alert and oriented to time, place, person, mood and affect Debridement Note Post-Debridement Measurements/Treatment WC - Nurse 2 - General Ulcer CM Notes Start: 08/24/19 10:41 Freq: Status: Active Protocol: Activity Type Activity Date Activity User E-Sign Co-Sign Detail Recorded Client Recorded Date Recorded By Document 08/31/19 10:06 DV [id number] 08/31/19 10:17 DV 08/31/19 10:06 Wound Center Nurse 2 #17 R 2nd toe -Time 10:08 -Correct Patient Yes -Correct Side, Site, Position Yes -Correct Procedure Yes -Procedure Performed Yes -Type of Procedure Debridement -Clinical Debridement Subcutaneous -Post Debridement Size (cm) - Length 0.6 -Post Debridement Size (cm) - Width 0.6 -Post Debridement Size (cm) - Depth 0.2 -Total Square Cm 0.36 -Wound/Ulcer Outcome Not Healed -Ulcer Cleansing Rinsed/ Irrigated with Saline -Foul Odor after Cleansing No -Bioengineered Tissue Yes -Type of bioengineered Tissue EPIFIX -Expiration Date 03/22/24 -Product Lot Number [id number] -Percent Used 100 -Saline Lot Number [id number] -Topical Lidocaine (%) 5 -Bleeding Controlled with Pressure -Offloading No -Type of Offloading Surgical Shoe -Treatment Response Procedure Tolerated Well Pain Scale: 0-10 Numeric Is Patient Pain Free? Yes No debridement was completed today - The patient's right foot ulceration appears to be completely healed and epithelialized. 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 He presented with an ulceration on the dorsum of the right foot, near the base of the right second toe. This appears to be pressure related, and likely due to ill-fitted footwear. Offloading measures are to be continued. These measures have been discussed with the patient. Alternative offloading footwear has been obtained. Patient remains on systemic anticoagulation therapy. The patient admits to good compliance within the last several weeks. The patient's right foot ulceration now appears to be completely healed and epithelialized. There appears to be a thin layer of epithelium overlying the ulceration. Plan: The patient is to be discharged today. His right foot ulceration appears to be completely epithelialized. The patient has been cautioned to refrain from traumatizing the area and to continue with offloading measures. For now, he is to dress the site with a thin dry gauze dressing on a daily basis. He is to follow-up henceforth on an as-needed basis. The patient is to continue wearing his graduated compression stockings which are of 20 to 30 mmHg compression. These are to be worn on a daily basis. Adequate nutritional intake has been recommended. Patient has been advised to elevate his lower extremities as much as possible. The means by which this is to be accomplished has been discussed. He is to continue sleeping on a flat mattress at night. He is to avoid idle sitting and standing. Activity has been encouraged. The patient is not a smoker. Influenza vaccine was not administered today. The patient weighs 185 pounds. He stands 6 feet 2 inches tall. His BMI is 23.8, which is normal.
== END 2019-09-21 23:59 ==
LOC: WC 10:30
PROVIDERS: Family Provider Family Medicine; PCP Family Medicine; Referring Provider Surgery; Visit Provider Surgery
DX: I83.215 Varicose veins of right lower extremity with both ulcer other part of foot and inflammation (principal); G20 Parkinson's disease; L97.512 Non-pressure chronic ulcer of other part of right foot with fat layer exposed; R60.0 Localized edema; Z86.718 Personal history of other venous thrombosis and embolism; D68.51 Activated protein C resistance; M79.89 Other specified soft tissue disorders; Z79.899 Other long term (current) drug therapy; Z79.01 Long term (current) use of anticoagulants; Z91.19 Patient's noncompliance with other medical treatment and regimen
CPT/HCPCS: 15275; 99212; Q4186; G0463

== ENCOUNTER 2021-04-10 10:55 | Inpatient (IN) | payer MEDICARE, OTHER, SELFPAY ==
[2021-04-10] VITALS (15 sets, daily range): BP systolic 113–170; BP diastolic 63–92; PULSE 45–70; RESP 14–23; TEMP 36.2–37.1; O2SAT 96–99; BMI 23.6; BMI 23.1
--- NOTE | 2021-04-10 11:16 | EKG12_ITS ---
Test Reason : CP Blood Pressure : / mmHG Vent. Rate : 070 BPM Atrial Rate : 070 BPM P-R Int : 146 ms QRS Dur : 104 ms QT Int : 372 ms P-R-T Axes : 036 047 056 degrees QTc Int : 401 ms Normal sinus rhythm Normal ECG Confirmed by GIO MATOS, EMIL ([id number]), mapping editor KENY FLORES ([id number]) on 04/13/2021 9:54:26 AM Referred By: SHAHAB Confirmed By:EMIL POWERS MD
--- NOTE | 2021-04-10 11:17 | EDS_ITS ---
HPI History of Present Illness Chief Complaint: Chest Pain Informant: patient and spouse/S.O. Narrative Narrative: 71-year-old male with a history of factor V Leiden mutation on Coumadin presents the emergency room with chest pain. He states for the past 3 days he has had a sharp pain intermittently going across his chest and into his arms. Today for the past 5 hours it has been constant. He states nothing seems to make it better or worse. He denies dyspnea or cough. No fevers. He notes that his INR was therapeutic last week and prior to that was supratherapeutic but he cannot recall if recently it has been subtherapeutic. states that he has been sweeping the stalls out of the barn and wonders if that is causing his pain. [facility] Medical History DVT (deep venous thrombosis) Parkinson disease Home Medications carbidopa-levodopa 2 tab PO Q6H 12/09/18 [History Last Taken Unknown] warfarin [Jantoven] 9 mg PO DAILY@1700 04/10/21 [History Last Taken Unknown] Allergy/AdvReac Type Severity Reaction Status Date / Time No Known Allergies Allergy Verified 04/10/21 10:56 Surgical History History of bilateral hip replacements Total knee replacement status Social History (Updated 04/10/21 @ 11:[address] Alberto Mata DO) Smoking Status: Never smoker substance use type: does not use ROS ROS ED Constitutional Constitutional ED: Denies chills or weight loss Eyes Eyes: Denies change in vision or diplopia ENT ENT ED: Denies ear pain, rhinorrhea or sore throat Cardiovascular Cardiovascular: Reports chest pain; Denies orthopnea, palpitations or racing heartbeat Respiratory/Chest Respiratory/Chest: Denies cough, dyspnea or orthopnea Gastrointestinal Gastrointestinal: Denies abdominal pain, diarrhea, nausea or vomiting Genitourinary Genitourinary ED: Denies dysuria, hematuria or urinary frequency Musculoskeletal Musculoskeletal: Denies arthralgias or myalgias Integumentary Denies abscess or rash Neurologic Neurologic: Denies headache(s) or weakness Psychiatric Psychiatric: Denies anxiety, depression, suicidal ideation or suicidal thoughts Endocrine Endocrinology: Denies polydipsia, polyphagia or polyuria Allergic/Immunologic Allergic/Immunologic ED: Denies mouth swelling, tongue swelling or urticaria EXAM Physical Exam Const Vital Signs: 04/10/21 10:56 04/10/21 10:59 04/10/21 12:20 Temperature 97.9 F Temperature Source Oral Pulse Rate 69 56 L Respiratory Rate 20 H Respiratory Effort Normal Non-Labored Blood Pressure 168/92 H 170/89 H Blood Pressure Mean 117 Pulse Ox 96 Oxygen Delivery Method Room Air 04/10/21 12:22 04/10/21 12:29 04/10/21 12:34 Temperature Temperature Source Pulse Rate 64 52 L 70 Respiratory Rate 23 H Respiratory Effort Blood Pressure 170/89 H 154/89 H 150/84 H Blood Pressure Mean 116 Pulse Ox 99 Oxygen Delivery Method Room Air 04/10/21 13:13 Temperature Temperature Source Pulse Rate 56 L Respiratory Rate 19 H Respiratory Effort Blood Pressure 151/86 H Blood Pressure Mean 107 Pulse Ox 98 Oxygen Delivery Method Room Air Positive well nourished and well developed General Appearance ED: well developed HEENT Reports normocephalic, head/scalp atraumatic and moist mucous membranes Eyes PERRL and EOMs intact bilaterally Neck no lymphadenopathy, supple and no JVD Resp normal respiratory effort and clear to auscultation bilaterally Cardio regular rate, regular rhythm and no murmurs GI normal to inspection, nondistended, normoactive bowel sounds and non-tender Palpation: soft Back/Spine no CVA tenderness and normal ROM Extremity normal to inspection General Extremety ED: Negative for edema General Extremity: Negative for edema Neuro oriented x3 and CN's II-XII intact bilaterally Sensorium / Orientation: alert Motor Exam: strength 5/5 throughout Psych mental status grossly normal Mood & Affect: Negative for depressed or tearful Skin no rashes or lesions noted and no wounds Heart Score History: Slightly/Non-Suspicious ECG: Normal Age: >/= 65 years Risk Factors: 1 or 2 Risk Factors Troponin: >/=3 x Normal Limit Score: 5 MDM MDM MDM Narrative Medical decision making narrative: My interpretation of the chest x-ray is no acute process. EKG does not show ACS findings. Creatinine is normal. His troponin is 1036. Patient initially received Toradol for pain and then a nitro series which helped his pain. I spoke with cardiology we have administered a spirin metoprolol and Brilinta. Patient also needs his carbidopa and that was ordered. Dr. iPna did come to the emergency department to evaluate the patient. Plan will be for admission. Hospitalist was contacted Lab Data Attestation: I reviewed the patient's lab results. Labs: Laboratory Results - last 24 hr 04/10/21 04/10/21 04/10/21 11:02 11:02 11:02 WBC 6.5 RBC 4.47 L Hgb 14.4 Hct 44.1 MCV 98.7 H MCH 32.2 H MCHC 32.7 RDW Std Deviation 46.1 H RDW Coeff of Edwige 12.7 Plt Count 180 MPV 10.4 Immature Gran % (Auto) 0.500 Neut % (Auto) 76.0 H Lymph % (Auto) 18.1 L [place] % (Auto) 4.7 Eos % (Auto) 0.5 Baso % (Auto) 0.2 Absolute Neuts (auto) 4.9 Absolute Lymphs (auto) 1.17 Nucleated RBC % 0 PT 21.9 H INR 2.0 Sodium 139 Potassium 4.3 Chloride 109 H Carbon Dioxide 27.0 Anion Gap 3 L BUN 18 Creatinine 0.91 Estim Creat Clear Calc 86.57 Est GFR (MDRD) Af Amer 106 Est GFR (MDRD) Non-Af 88 BUN/Creatinine Ratio 19.9 Glucose 125 H Calcium 8.4 L Troponin I High Sens 1036.2 H* Radiography Diagnostic Testing: Radiology Impression Chest X-Ray 04/10/21 11:47 IMPRESSION: No acute cardiopulmonary process identified. Electronically Signed: Jeffrey Wilson MD at 12:16 EDT Tel , Service support , EKG Initial EKG: Attestation: I personally reviewed and interpreted this EKG as follows: Comments: EKG demonstrates a normal sinus rhythm at a rate of 70 bpm. No significant ectopy noted. No concerning features of ACS noted Discharge Plan Dx/Rx/DC Orders Clinical Impression: Non-ST elevation [place] (NSTEMI), Chest pain, Factor V Leiden mutation, Anticoagulated on Coumadin Disposition Disposition: Acute Care [facility]
[2021-04-10] MEDS: Aspirin 81 MG TAB.CHEW 324 MG PO (11:24)
[2021-04-10] MEDS: 0.9% Normal Saline 1,000 ML 1000 ML IV (11:24)
[2021-04-10] MEDS: Ketorolac 15 MG/ML Vial IV (11:24)
[2021-04-10 11:29] LABS: Absolute Lymphocyte Count 1.17 X10^3/uL (0.83-4.51); Absolute Neutrophil Count 4.9 X10^3/uL (2.0-7.7); Basophil# 0.01 X10^3/uL; Basophil% 0.2 % (0-1); Eosinophil# 0.03 X10^3/uL; Eosinophils% 0.5 % (0-5); Hematocrit 44.1 % (40-54); Hemoglobin 14.4 g/dL (13.0-16.5); Lymphocyte # 1.17 X10^3/ul (0.83-4.51); Lymphocyte % 18.1 % (19-41); Mean Corp Hgb Conc 32.7 g/dL (32-36); Mean Corpuscular Hgb 32.2 pg (27.0-32.0); Mean Corpuscular Volume 98.7 fL (80-94); Mean Platelet Vol. 10.4 fl (6.2-12.0); Monocyte% 4.7 % (0-10); NRBC Flagged by Analyzer 0 % (0-5); Neutrophil # 4.91 X10^3/uL (2.7-7.7); Platelet Count 180 K/mm3 (150-450); RBC Distribution Width CV 12.7 % (11.6-14.6); RBC Distribution Width SD 46.1 fl (35.1-43.9); Red Blood Count 4.47 M/mm3 (4.6-6.2); White Blood Count 6.5 K/mm3 (4.4-11.0)
[2021-04-10 11:36] LABS: Prothrombin Time (Protime)PT. 21.9 SECONDS (11.7-14.9)
--- NOTE | 2021-04-10 11:47 | RAD_ITS ---
STUDY: X-RAY CHEST REASON FOR EXAM: Male, 71 years old. Cad TECHNIQUE: Single frontal view of the chest. COMPARISON: 12/05/2018. FINDINGS: Several calcified nodules are noted bilaterally. The lungs are clear and expanded. There is no demonstrated pleural abnormality. Normal size heart. Normal mediastinum and slick. Normal visualized pulmonary arteries. Normal visualized aortic arch and descending thoracic aorta. Normal visualized thoracic spine. Normal visualized ribs, clavicles, and shoulders. There is no demonstrated abnormality of the visualized soft tissue structures of the upper abdomen. RAD/Chest 1 View (Portable) IMPRESSION: No acute cardiopulmonary process identified. Electronically Signed: Jeffrey Wilson MD at 12:16 EDT Tel , Service support ,
[2021-04-10 11:48] LABS: Anion Gap 3 (5-15); BUN 18 mg/dL (7-18); BUN/Creat Ratio 19.9 RATIO (10-20); Calcium,Total 8.4 mg/dL (8.5-10.1); Chloride 109 mmol/L (98-107); Creatinine, Serum 0.91 mg/dL (0.70-1.30); EST Glomerular Filtration Rate 88 mL/min (>60); Est Glom Filt Rate - Afr Amer 106 mL/min (>60); Estimated Creatinine Clearance 86.57 ml/min; Glucose 125 mg/dL (74-106); Potassium 4.3 mmol/L (3.5-5.1); Sodium Level 139 mmol/L (136-145); Troponin-I HS 1036.2 pg/mL (3.0-78.5)
[2021-04-10] MEDS: Nitroglycerin SL (ED/IMG/CATH) 0.4 MG TABLET SL ×3 (12:20→12:34)
--- NOTE | 2021-04-10 13:09 | ECHOD_ITS ---
Version 2 Reason For Study: CHEST PAIN Procedure This was a 2D Doppler, Color Flow transthoracic echocardiogram. Exam performed portable in ED. Left Ventricle Normal LV size. Left ventricular systolic function is normal. The estimated ejection fraction is 55 %. No evidence for diastolic dysfunction. No regional wall motion abnormalities noted. Right Ventricle Normal RV size. Normal systolic function. Atria The left atrium is mildly enlarged. Normal right atrium. No doppler evidence for ASD. Mitral Valve There is no mitral annular calcification. Anterior leaflet diffuse mitral valve thickening. The mitral papillary muscle appears thickened and/or calcified. Trivial mitral valve insufficiency. Tricuspid Valve Normal tricuspid valve. Trivial tricuspid valve insufficiency. Right ventricular systolic pressure estimated to be 22 mmHg. Aortic Valve Trisinus/trileaflet aortic valve. Mild diffuse aortic valve thickening. Mild focal aortic valve calcification. Trivial aortic valve insufficiency. Pulmonic Valve The pulmonic valve is not well visualized. Trivial pulmonic valve insufficiency. Great Vessels Normal sized aortic root. Pericardium/Pleural Trivial pericardial effusion. There are no echocardiographic indications of cardiac tamponade. MMode/2D Measurements & Calculations LVIDd: 5.6 cm IVSd: 0.87 cm Ao root diam: 3.3 cm LVIDs: 4.1 cm LVPWd: 0.93 cm RVDd: 4.4 cm FS: 27.3 % LAV(MOD-bp): 70.8 ml LVAd ap4: 40.8 cm2 SV(MOD-sp4): 81.0 ml LAV(MOD-bp) Indexed: 33.8 ml/m2 LVLd ap4: 9.0 cm LAV(MOD-sp2): 64.5 ml EDV(MOD-sp4): 155.0 ml LAV(MOD-sp4): 71.3 ml EDV(sp4-el): 157.4 ml LVAs ap4: 25.7 cm2 LVLs ap4: 7.6 cm ESV(MOD-sp4): 74.0 ml ESV(sp4-el): 74.1 ml EF(MOD-sp4): 52.3 % EF(sp4-el): 52.9 % SV(sp4-el): 83.3 ml LA A4 area: 21.7 cm2 LA dimension(2D): 4.3 cm RA A4 area: 18.9 cm2 Time Measurements MV dec time: 0.24 sec Doppler Measurements & Calculations MV E max raymond: 66.9 cm/sec Lat Peak E' Raymond: 11.2 cm/sec Med Peak E' Raymond: 10.1 cm/sec MV A max raymond: 68.4 cm/sec E/E' lat: 6.0 E/E' med: 6.6 MV E/A: 0.98 Ao V2 max: 94.0 cm/sec LV V1 max: 91.5 cm/sec PA V2 max: 79.7 cm/sec Ao max P.5 mmHg LV V1 max P.4 mmHg TR max raymond: 215.5 cm/sec TR max P.6 mmHg ECHO/Echo Complete Interpretation Summary Left ventricular systolic function is normal. The estimated ejection fraction is 55 %. The left atrium is mildly enlarged. Anterior leaflet diffuse mitral valve thickening. The mitral papillary muscle appears thickened and/or calcified. Trivial mitral valve insufficiency. Trivial tricuspid valve insufficiency. Mild diffuse aortic valve thickening. Mild focal aortic valve calcification. Trivial aortic valve insufficiency. Trivial pulmonic valve insufficiency. Trivial pericardial effusion. There are no echocardiographic indications of cardiac tamponade. Right ventricular systolic pressure estimated to be 22 mmHg. No evidence for diastolic dysfunction. Comment: Upon further review of the transthoracic echocardiogram there appears to be 2D echocardiographic images that demonstrate the intermittent appearance of a line ar echodensity associated with the right ventricle of uncertain etiology. Ordering Physician: Liss Hamilton Referring Physician: JOSS BERMUDEZ Performed By: Charline Burkett, ROSIBEL
--- NOTE | 2021-04-10 13:15 | PCM.HP.STD ---
HPI - General General Date of Admission: 04/10/21 Date of Service: 04/10/21 Chief Complaint: Chest pain HPI Narrative GERARDO FANG, is a 71 M who presents with chest pain ongoing for weeks. Chest pain comes on suddenly and is worse with exertion. It is usually substernal and radiates to the left shoulder and then across his chest. It has been coming on and off. There is no pattern to it. Patient has associated diaphoresis and fatigue. He denied any dizziness or palpitations. He denied unusual leg swelling or orthopnea. This morning he had a sudden onset of chest pain that was worse than usual. It appeared to somehow radiates down his left arm. I got him concerned. EKG in the ED showed sinus bradycardia. His troponins were elevated more than 1000. Patient continues to have chest discomfort at time of being seen. He was seen by cardiology in the ED and a Nitropaste has been ordered. [facility] Medical History DVT (deep venous thrombosis) Parkinson disease Home Medications carbidopa-levodopa 2 tab PO 5X/DAY 04/10/21 [History Last Taken 04/10/21] warfarin 1.5 mg PO DAILY 04/10/21 [History Last Taken 04/10/21] warfarin 6 mg PO DAILY 04/10/21 [History Last Taken 04/10/21] Allergy/AdvReac Type Severity Reaction Status Date / Time No Known Allergies Allergy Verified 04/10/21 10:56 Family History (Updated 04/10/21 @ 17:[address] iLss Hamilton MD) Mother , CAD: of a heart attack at approximately age 72 CAD (coronary artery disease) Father No problems noted. Surgical History History of bilateral hip replacements Total knee replacement status Social History (Updated 04/10/21 @ 17:[address] Liss Hamilton MD) household members: spouse Smoking Status: Never smoker alcohol intake: never substance use type: does not use ROS ROS Narrative Constitutional: Denies: Anorexia, Chills, Fever, Night Sweats, Weight Change, Malaise, Weakness, Fatigue. Eyes: Denies: Blurred vision, Cataracts, Conjunctivae Inflammation, Pain, Redness, Vision Change HEENT: Denies: Difficulty Hearing, Difficulty Swallowing, Head Aches, Hearing Changes, Sinus Congestion, Sinus Drainage Cardiovascular: See HPI Respiratory: Denies: Cough, Shortness of breath at rest, Sputum production Gastrointestinal: Denies: Abdominal Pain, Nausea, Vomiting Genitourinary: Denies: Dysuria Musculoskeletal: Denies: Joint Pain, Joint stiffness, Joint swelling, Joint Tenderness Skin: Denies: Rash, Wounds Neurological: Denies: Numbness, Tingling, Focal weakness Vital Signs Vital Signs Vital Signs: 04/10/21 10:56 04/10/21 10:59 04/10/21 12:20 Temperature 97.9 F Temperature Source Oral Pulse Rate 69 56 L Respiratory Rate 20 H Respiratory Effort Normal Non-Labored Blood Pressure 168/92 H 170/89 H Blood Pressure Mean 117 Pulse Ox 96 Oxygen Delivery Method Room Air 04/10/21 12:22 04/10/21 12:29 04/10/21 12:34 Temperature Temperature Source Pulse Rate 64 52 L 70 Respiratory Rate 23 H Respiratory Effort Blood Pressure 170/89 H 154/89 H 150/84 H Blood Pressure Mean 116 Pulse Ox 99 Oxygen Delivery Method Room Air 04/10/21 13:13 Temperature Temperature Source Pulse Rate 56 L Respiratory Rate 19 H Respiratory Effort Blood Pressure 151/86 H Blood Pressure Mean 107 Pulse Ox 98 Oxygen Delivery Method Room Air Weight Weight: 83.4 kg Body Mass Index (BMI) 23.6 Physical Exam Narrative Physical exam: General: Alert, Oriented x3, Cooperative, No apparent distress, Well developed, flat affect HEENT: Atraumatic Oral: Moist Mucosa Neck: Supple Lungs: Clear to auscultation Cardiovascular: HS I+II, regular, no murmurs Abdomen: Bowel Sounds Present, Soft, Non Tender Extremities: No edema Results Lab / Micro Data Result Diagrams: 04/10/21 11:02 04/10/21 11:02 Labs: Laboratory Results - last 24 hr 04/10/21 11:02: WBC 6.5, RBC 4.47 L, Hgb 14.4, Hct 44.1, MCV 98.7 H, MCH 32.2 H, MCHC 32.7, RDW Std Deviation 46.1 H, RDW Coeff of Edwige 12.7, Plt Count 180, MPV 10.4, Immature Gran % (Auto) 0.500, Neut % (Auto) 76.0 H, Lymph % (Auto) 18.1 L, [place] % (Auto) 4.7, Eos % (Auto) 0.5, Baso % (Auto) 0.2, Absolute Neuts (auto) 4.9, Absolute Lymphs (auto) 1.17, Nucleated RBC % 0 04/10/21 11:02: PT 21.9 H, INR 2.0 04/10/21 11:02: Sodium 139, Potassium 4.3, Chloride 109 H, Carbon Dioxide 27.0, Anion Gap 3 L, BUN 18, Creatinine 0.91, Estim Creat Clear Calc 86.57, Est GFR (MDRD) Af Amer 106, Est GFR (MDRD) Non-Af 88, BUN/Creatinine Ratio 19.9, Glucose 125 H, Calcium 8.4 L, Troponin I High Sens 1036.2 H* Radiology Impression Chest X-Ray 04/10/21 11:47 IMPRESSION: No acute cardiopulmonary process identified. Electronically Signed: Jeffrey Wilson MD at 12:16 EDT Tel , Service support , Assessment & Plan Assessment/Plan (1) Acute non-ST elevation myocardial infarction (NSTEMI): (2) Parkinsons disease: (3) CVA (cerebral vascular accident): QUALIFIERS: CVA mechanism: unspecified Qualified Code(s): 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infarction, unspecified (4) Factor V Leiden mutation: PLAN: 1. Acute NSTEMI, EKG shows normal sinus rhythm, no acute ST-T changes Admitting troponin is more than 1000, cardiology consulted from the ED Patient's INR is 2.0, received aspirin and statin and Brilinta 2D echo shows EF of 55%, no acute abnormality Patient came for cardiac cath in a.m. 2. Factor V Leyden mutation with history of stroke and DVTs On Coumadin, INR is 2.0, will start on heparin bridging 3. Parkinson's disease, on Sinemet 4. CODE STATUS: Undecided; full code for now I discussed and explained in details the various types of CODE STATUS-full code, DNR CCA, DNR CC. Patient could not decide. He wanted to talk it more with the . Will be made full code for now Time spent discussing CODE STATUS 16 minutes Charges/Coding Visit Charges Inpatient E&M: 47452 Init Hosp L3 Procedures Hospitalists Procedures: 34495 Advncd Care Plan 30 Min
[2021-04-10] MEDS: Carbidopa/Levodopa 25/100 Tablet PO ×3 (13:22→23:27)
[2021-04-10] MEDS: TICAGRELOR 90 MG TABLET 180 MG PO (13:22)
[2021-04-10] MEDS: Metoprolol Tartrate 25 MG Tablet PO (13:22)
[2021-04-10] MEDS: Aspirin 325 MG Tablet PO (13:22)
--- NOTE | 2021-04-10 13:53 | PCM.CONS.C ---
Assessment & Plan Assessment/Plan (1) Chest pain: QUALIFIERS: Chest pain type: unspecified Qualified Code(s): R07.9 - Chest pain, unspecified PLAN: The patient presents with a somewhat atypical chest discomfort. He describes it as a sharp right-sided discomfort involving the right upper extremity. He does admit it is partially reproducible with palpation over the right anterior thorax. 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 He does not believe he has had any underlying gastrointestinal disease process that he is aware of that would contribute to this finding. He is being monitored. His rate and rhythm are being followed. His initial troponin I level is abnormal. His initial ECG demonstrates sinus rhythm with no acute ECG changes. At the present time he will continue a cardiovascular evaluation. This will include monitoring his vital signs and his cardiac rate and rhythm. We will also include following his troponin I levels and his ECG. He will be asked to have an echocardiogram to assess his left ventricular wall motion and systolic function. He will also be asked to undergo further evaluation with diagnostic cardiac catheterization. In the interim he will continue medical therapy such as aspirin, antiplatelets, nitrates, beta-blockers as tolerated, statins, etc. In anticipation of diagnostic cardiac catheterization his warfarin/Coumadin will be placed on temporary hold. His INR will be followed. Also in the interim he can be evaluated for any other obvious noncardiac issues that would explain his symptoms and/or his cardiac enzyme findings. (2) Non-ST elevation AR (NSTEMI): PLAN: The patient does have abnormal cardiac enzymes. This would be compatible with an acute non-ST segment elevation AR. Is unclear at the moment whether this is a primary variant or whether his cardiac enzymes may be a type II event brought out by supply demand mismatch brought out by other noncardiovascular concerns. He does have a history of neurologic disease with Parkinson's disease and a reported CVA. At the moment he does not believe he has had any acute neurologic changes. He believes his INR has been therapeutic thus making it less likely he would have had any recurrent thromboembolic events. He is not known to have ongoing renal insufficiency. He is not known to have any obvious acute infectious related etiologies or sepsis syndrome at this time. Thus, at the present time he will continue his cardiovascular evaluation care as described above. (3) Factor V Leiden mutation: PLAN: He does have a factor V Leiden deficiency. He states he has had DVT in the past. To the best of his knowledge he has never had pulmonary emboli. He states he has been anticoagulated for several years without any obvious recurrent issues to the best of his knowledge. He does note his INR level of 2 is lower than usual. At the moment his anticoagulation is being placed on hold pending further evaluation with diagnostic cardiac catheterization. (4) Anticoagulated on Coumadin: PLAN: Again his anticoagulation with his warfarin/Coumadin will be placed on hold pending further evaluation with diagnostic cardiac catheterization. As his INR decreases he can be treated with additional anticoagulants such as heparin or enoxaparin as deemed appropriate. Eventually he will need to return to his oral anticoagulant therapy. (5) Parkinsons disease: PLAN: He does have a history of Parkinson's disease. He is on medical therapy for. Is unclear whether this can be a contributing factor to his abnormal enzyme levels. (6) CVA (cerebral vascular accident): QUALIFIERS: CVA mechanism: unspecified Qualified Code(s): 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infarction, unspecified PLAN: He does have a history of a CVA. He states he has had no new acute neurologic events. Addt'l Comments Overall, at the present time, the patient will continue to be monitored. He will continue medical management as deemed appropriate. He will be scheduled for upcoming diagnostic cardiac catheterization. The above was discussed with the patient, his spouse, and Dr. Mata of the [facility] emergency department staff. This note was generated using a voice recognition system and there may be incorrect words, spelling or punctuation that were not noted when reviewing the office note prior to saving. HPI Consult Data Date of Consult: 04/10/21 HPI Narrative HPI Narrative: GERARDO FANG, is a 71 year old white male who presents via the [facility] emergency department for concerns of right sided sharp chest discomfort and an abnormal high-sensitivity troponin I level. This is superimposed upon a history of underlying factor V Leiden deficiency, DVT, CVA, and Parkinson's disease. The patient states that for the last 1 to 2 weeks has been noticing right chest and right upper extremity sharp discomfort. He states it is waxed and waned. Today he felt it was more prominent. He has not noted associated nausea, emesis, or diaphoresis. He denies any obvious acute respiratory related events. There has been no orthopnea or PND or peripheral pitting edema. He has denied any near-syncope or syncope. He states based upon his discomfort he elected to present to the [facility] emergency department this day. He was found to have a troponin I level which was elevated. His ECG demonstrated sinus rhythm with no acute changes. His chest x-ray is as noted below. He was treated in the emergency department with anti-inflammatory therapy with Toradol. He also received nitroglycerin sublingual. He states overall he has had some improvement in his discomfort. He denies any cardiovascular history and does not recall undergoing any cardiovascular testing in the past. He is unsure what his usual resting heart rate is. He knows that his usual resting blood pressure is well within normal ranges. His only medications have been his warfarin/Coumadin and his carbidopa. He states with respect to his warfarin/Coumadin is followed by his PCP. He notes his levels of actually been higher recently than low. He states his warfarin/Coumadin dose has been decreased recently because of his levels. Today his level in emergency department is 2.0. He states it is never that low . [facility] Medical History DVT (deep venous thrombosis) Parkinson disease Home Medications carbidopa-levodopa 2 tab PO 5X/DAY 04/10/21 [History Last Taken 04/10/21] warfarin 1.5 mg PO DAILY 04/10/21 [History Last Taken 04/10/21] warfarin 6 mg PO DAILY 04/10/21 [History Last Taken 04/10/21] Allergy/AdvReac Type Severity Reaction Status Date / Time No Known Allergies Allergy Verified 04/10/21 10:56 Family History (Updated 04/10/21 @ 13:[address] Joss Pina MD) Mother , CAD: of a heart attack at approximately age 72 CAD (coronary artery disease) Surgical History History of bilateral hip replacements Total knee replacement status Social History Smoking Status: Never smoker substance use type: does not use ROS Constitutional Constitutional: Reports as per HPI Eyes Eyes: Reports as per HPI ENT HEENT: Reports as per HPI Cardiovascular Cardiovascular: Reports chest pain, chest pain at rest and chest pain with activity Respiratory/Chest Respiratory/Chest: Reports as per HPI Gastrointestinal Gastrointestinal: Reports as per HPI Genitourinary Genitourinary: Reports as per HPI Musculoskeletal Musculoskeletal: Reports other Details: Chest discomfort to palpation over the right anterior thorax: Partially reproducing the patient's symptoms Integumentary Integumentary: Reports as per HPI Neurologic Neurologic: Reports abnormal gait Physical Exam Narrative This is a 71-year-old white male appears be resting comfortably at the moment in no acute distress. Const alert, oriented x3 and no apparent distress Orientation / Consciousness: awake HEENT normocephalic, head/scalp atraumatic and hearing grossly normal bilaterally Eyes PERRL, EOMs intact bilaterally and conjunctivae normal Neck full ROM, supple and no JVD Chest Chest Narrative: Palpation of chest: Right anterior thorax: Positive tenderness: Partially reproducing the patient's symptoms Resp clear to auscultation bilaterally Cardio regular rate, regular rhythm, S1 normal heart sound and S2 normal heart sound GI normal to inspection, nondistended, normoactive bowel sounds Extremity no pedal edema Skin no rashes or lesions noted Neuro oriented x3 and moves all extremities Psych mental status grossly normal Procedure Criteria Type of Procedure Procedure Type: Elective Elective Risks - COVID COVID Risk Discussion: The surgeon/proceduralist and patient have discussed in detail the risk of exposure to and/or potential harm posed by the COVID-19 virus with having a surgery/procedure at this time versus the risk of delaying the surgery/procedure. It is not possible to know either the risk of delaying the surgery or procedure or chance of getting an infection with perfect accuracy, but a joint decision was made between the patient and the surgeon/proceduralist to proceed at this time with the scheduled surgery/procedure as indicated on the consent form. Objective Data Vital Signs: Vital Signs Temp Pulse Resp BP Pulse Ox 98.1 F 54 L 14 151/86 H 98 04/10/21 13:23 04/10/21 13:23 04/10/21 13:23 04/10/21 13:23 04/10/21 13:23 Oxygen Delivery Method Room Air Weight: 183 lb 13.848 oz Body Mass Index (BMI) 23.6 Intake & Output: Intake and Output for Last 24 Hours 07/04/09/21 04/10/21 23:59 23:59 23:59 Intake Total 1000 / 1000 Balance 1000 / 1000 Lab / Micro Data Result Diagrams: 04/10/21 11:02 04/10/21 11:02 Labs: Laboratory Results - last 24 hr 04/10/21 11:02: WBC 6.5, RBC 4.47 L, Hgb 14.4, Hct 44.1, MCV 98.7 H, MCH 32.2 H, MCHC 32.7, RDW Std Deviation 46.1 H, RDW Coeff of Edwige 12.7, Plt Count 180, MPV 10.4, Immature Gran % (Auto) 0.500, Neut % (Auto) 76.0 H, Lymph % (Auto) 18.1 L, [place] % (Auto) 4.7, Eos % (Auto) 0.5, Baso % (Auto) 0.2, Absolute Neuts (auto) 4.9, Absolute Lymphs (auto) 1.17, Nucleated RBC % 0 04/10/21 11:02: PT 21.9 H, INR 2.0 04/10/21 11:02: Sodium 139, Potassium 4.3, Chloride 109 H, Carbon Dioxide 27.0, Anion Gap 3 L, BUN 18, Creatinine 0.91, Estim Creat Clear Calc 86.57, Est GFR (MDRD) Af Amer 106, Est GFR (MDRD) Non-Af 88, BUN/Creatinine Ratio 19.9, Glucose 125 H, Calcium 8.4 L, Troponin I High Sens 1036.2 H* Cardiology Labs/Tests 04/10/21 11:02: WBC 6.5, RBC 4.47 L, Hgb 14.4, Hct 44.1, MCV 98.7 H, MCH 32.2 H, MCHC 32.7, Plt Count 180, MPV 10.4, Immature Gran % (Auto) 0.500, Neut % (Auto) 76.0 H, Lymph % (Auto) 18.1 L, [place] % (Auto) 4.7, Eos % (Auto) 0.5, Baso % (Auto) 0.2, Absolute Neuts (auto) 4.9, Nucleated RBC % 0 04/10/21 11:02: PT 21.9 H, INR 2.0 04/10/21 11:02: Sodium 139, Potassium 4.3, Chloride 109 H, Carbon Dioxide 27.0, Anion Gap 3 L, BUN 18, Creatinine 0.91, Est GFR (MDRD) Af Amer 106, Est GFR (MDRD) Non-Af 88, BUN/Creatinine Ratio 19.9, Glucose 125 H, Calcium 8.4 L Rhythm: Sinus rhythm EKG: Sinus rhythm Radiography Diagnostic Testing: Radiology Impression Chest X-Ray 04/10/21 11:47 IMPRESSION: No acute cardiopulmonary process identified. Electronically Signed: Jeffrey Wilson MD at 12:16 EDT Tel , Service support ,
--- NOTE | 2021-04-10 14:46 | EKG12_ITS ---
Test Reason : CP Blood Pressure : / mmHG Vent. Rate : 051 BPM Atrial Rate : 051 BPM P-R Int : 152 ms QRS Dur : 104 ms QT Int : 392 ms P-R-T Axes : 025 043 052 degrees QTc Int : 361 ms *Right sided precordial leads Sinus bradycardia Confirmed by GIO MATOS, EMIL ([id number]), production editor KENY FLORES ([id number]) on 04/13/2021 10:18:50 AM Referred By: TIM Confirmed By:EMIL POWERS MD
[2021-04-10 15:32] LABS: Troponin-I HS 772.8 pg/mL (3.0-78.5)
[2021-04-10] MEDS: Nitroglycerin Oint 1 INCH PACKET TD ×2 (15:51→23:23)
--- NOTE | 2021-04-10 16:37 | EKG12_ITS ---
Test Reason : CP Blood Pressure : / mmHG Vent. Rate : 055 BPM Atrial Rate : 055 BPM P-R Int : 122 ms QRS Dur : 100 ms QT Int : 404 ms P-R-T Axes : -11 055 052 degrees QTc Int : 386 ms *Left posterior precordial leads Sinus bradycardia Confirmed by GIO MATOS, EMIL ([id number]), scientific publications editor KENY FLORES ([id number]) on 04/13/2021 10:19:30 AM Referred By: TIM Confirmed By:EMIL POWERS MD
--- NOTE | 2021-04-10 17:11 | CT_ITS ---
INDICATION: chest pain EXAMINATION: CT Chest W/ Contrast Injection TECHNIQUE: Helically acquired images were obtained of the chest following administration of IV contrast. A radiation dose optimization technique was used for this scan. 3D postprocessing images including MIPS were reviewed. IV Contrast dosage and agent: IV 100mL [id number] COMPARISON: None. FINDINGS: Lungs: Few calcified granulomas in the right middle lobe. Scattered subsegmental atelectasis. Mediastinum: The heart is mildly enlarged. Calcified mediastinal and hilar nodes. No mediastinal, hilar or axillary adenopathy. The thoracic aorta is unremarkable. No obvious filling defect seen within the visualized pulmonary arteries. Pleura: Unremarkable Bones/Soft tissues: Mild scattered degenerative changes of the visualized spine. Upper abdomen: No visualized abnormalities in the upper abdomen. CT/Chest WITH Contrast IMPRESSION: No acute abnormalities in the chest. Specifically, no evidence of acute pulmonary emboli to segmental level. Cardiomegaly. Electronically Signed: Ganga Anaya MD at 18:58 EDT Tel , Service support ,
[2021-04-10] MEDS: Morphine 2 MG/ML Syringe IV ×2 (17:22→22:08)
[2021-04-10] MEDS: 0.9% Saline Lock 10 ML Syringe IV (17:23)
[2021-04-10] MEDS: HEPARIN/D5w 25,000 UNITS 25,000 UNITS/250 ML IV.SOLN. 12 UNITS IV (18:46)
[2021-04-10] MEDS: 0.9% Normal Saline 1,000 ML 75 ML IV (18:46)
--- NOTE | 2021-04-10 20:12 | NURSING ---
Discussed signing consent for Heart cath with Pt. States he will wait to sign it in the morning after he talks with the doctor. Placed consent to chart for the morning. Pt is agreeable to continue to have the prep for the procedure done as usual.
[2021-04-10] MEDS: Atorvastatin Calcium 80 MG Tablet PO (21:43)
[2021-04-10] MEDS: TICAGRELOR 90 MG TABLET PO (21:43)
--- NOTE | 2021-04-10 21:51 | EKG12_ITS ---
Test Reason : CP Blood Pressure : / mmHG Vent. Rate : 054 BPM Atrial Rate : 054 BPM P-R Int : 142 ms QRS Dur : 104 ms QT Int : 416 ms P-R-T Axes : 045 064 061 degrees QTc Int : 394 ms Sinus bradycardia Otherwise normal ECG Confirmed by GIO MATOS, EMIL ([id number]), associate entertainment editor KENY FLORES ([id number]) on 04/13/2021 10:19:46 AM Referred By: TIM Confirmed By:EMIL POWERS MD
--- NOTE | 2021-04-10 21:51 | NURSING ---
Pt reports chest pain 8/10 back and chest, ekg ordered. Notified Fartun Posada.
--- NOTE | 2021-04-10 22:00 | EKG12_ITS ---
Test Reason : NONSTEMI ADMIT Blood Pressure : / mmHG Vent. Rate : 048 BPM Atrial Rate : 048 BPM P-R Int : 162 ms QRS Dur : 110 ms QT Int : 424 ms P-R-T Axes : 031 060 061 degrees QTc Int : 378 ms Sinus bradycardia Otherwise normal ECG When compared with ECG of 05-DEC-2018 22:23, Vent. rate has decreased BY 24 BPM Confirmed by SILVERIO MATOS, MANGO ([id number]), editorial specialist KENY FLORES ([id number]) on 04/13/2021 10:25:38 AM Referred By: TIM Confirmed By:MANGO SAWYER MD
--- NOTE | 2021-04-10 22:00 | EKG12_ITS ---
Test Reason : CP Blood Pressure : / mmHG Vent. Rate : 048 BPM Atrial Rate : 048 BPM P-R Int : 160 ms QRS Dur : 110 ms QT Int : 440 ms P-R-T Axes : 014 048 047 degrees QTc Int : 393 ms Sinus bradycardia Otherwise normal ECG When compared with ECG of 10-APR-2021 15:05, MANUAL COMPARISON REQUIRED, DATA IS UNCONFIRMED Confirmed by SILVERIO MATOS, MANGO ([id number]), proposal editor KENY FLORES ([id number]) on 04/13/2021 10:25:24 AM Referred By: TIM Confirmed By:MANGO SAWYER MD
[2021-04-10] MEDS: Mag Hydrox/Al Hydrox/Simeth 30 ML UDC PO (22:11)
--- NOTE | 2021-04-10 22:18 | NURSING ---
Dr Pina was on floor informed of chest pain. Pt was medicated with morphine and maalox. Pt reports pain to chest and back 9/10 sharp.
[2021-04-11] VITALS (19 sets, daily range): BP systolic 98–113; BP diastolic 56–71; PULSE 47–60; RESP 8–18; TEMP 36.2–36.8; O2SAT 95–99
[2021-04-11 01:12] LABS: International Normalized Ratio 2.3; Prothrombin Time (Protime)PT. 24.6 SECONDS (11.7-14.9)
[2021-04-11 01:18] LABS: Partial Thromboplast Time 95.4 Seconds (24.1-36.2)
[2021-04-11] MEDS: 0.9% Normal Saline 1,000 ML 75 ML IV ×2 (05:29→14:01)
[2021-04-11] MEDS: Nitroglycerin Oint 1 INCH PACKET TD (05:30)
[2021-04-11] MEDS: Aspirin E.C. 81 MG Tablet PO (05:31)
[2021-04-11] MEDS: Carbidopa/Levodopa 25/100 Tablet PO ×5 (05:31→23:56)
[2021-04-11] MEDS: TICAGRELOR 90 MG TABLET PO (05:31)
[2021-04-11 05:34] LABS: Absolute Lymphocyte Count 1.12 X10^3/uL (0.83-4.51); Absolute Neutrophil Count 6.8 X10^3/uL (2.0-7.7); Basophil# 0.02 X10^3/uL; Basophil% 0.2 % (0-1); Eosinophil# 0.01 X10^3/uL; Eosinophils% 0.1 % (0-5); Hematocrit 42.8 % (40-54); Hemoglobin 13.9 g/dL (13.0-16.5); Lymphocyte # 1.12 X10^3/ul (0.83-4.51); Mean Corp Hgb Conc 32.5 g/dL (32-36); Mean Corpuscular Hgb 32.2 pg (27.0-32.0); Mean Corpuscular Volume 99.1 fL (80-94); Mean Platelet Vol. 10.3 fl (6.2-12.0); Monocyte# 0.63 X10^3/uL; Monocyte% 7.3 % (0-10); NRBC Flagged by Analyzer 0 % (0-5); Neutrophil # 6.83 X10^3/uL (2.7-7.7); Neutrophil % 79.1 % (47-70); Platelet Count 170 K/mm3 (150-450); RBC Distribution Width CV 12.6 % (11.6-14.6); RBC Distribution Width SD 46.2 fl (35.1-43.9); Red Blood Count 4.32 M/mm3 (4.6-6.2); White Blood Count 8.6 K/mm3 (4.4-11.0)
--- NOTE | 2021-04-11 05:44 | NURSING ---
Pre-heart cath EKG result sent to Dr Pina for interpretation awaiting response.
[2021-04-11 05:47] LABS: Partial Thromboplast Time 40.7 Seconds (24.1-36.2)
[2021-04-11 05:52] LABS: AST(SGOT) 20 U/L (15-37); Alanine Aminotransfer ALT/SGPT 14 U/L (16-61); Albumin, Serum 3.3 g/dL (3.2-5.0); Alkaline Phosphatase 66 U/L (45-117); Anion Gap 3 (5-15); BUN 15 mg/dL (7-18); BUN/Creat Ratio 19.7 RATIO (10-20); Calcium,Total 7.9 mg/dL (8.5-10.1); Chloride 107 mmol/L (98-107); Creatinine, Serum 0.76 mg/dL (0.70-1.30); EST Glomerular Filtration Rate 107 mL/min (>60); Est Glom Filt Rate - Afr Amer 129 mL/min (>60); Estimated Creatinine Clearance 78.58 ml/min; Globulin 3.3 g/dL (2.2-4.2); Glucose 114 mg/dL (74-106); Protein, Total 6.6 g/dL (6.4-8.2); Sodium Level 139 mmol/L (136-145)
--- NOTE | 2021-04-11 05:55 | EKG12_ITS ---
Test Reason : DYSRHYTHMIA Blood Pressure : / mmHG Vent. Rate : 068 BPM Atrial Rate : 068 BPM P-R Int : 132 ms QRS Dur : 096 ms QT Int : 366 ms P-R-T Axes : 059 067 044 degrees QTc Int : 389 ms Normal sinus rhythm with sinus arrhythmia ST Segment Abnormality: Consideer: Acute pericarditis Abnormal ECG Confirmed by GIO MATOS, EMIL ([id number]), automotive service professional KENY FLORES ([id number]) on 04/13/2021 1:33:56 PM Referred By: LEXI Confirmed By:EMIL POWERS MD
--- NOTE | 2021-04-11 06:08 | NURSING ---
Dr Aguila notified of EKG result for review, called Dr Pina and talked with him directly regarding interpretation, Cardiology states no stemi however notes small changes will arrange to have pt go earlier for heart cath this am.
[2021-04-11 06:44] LABS: International Normalized Ratio 2.2; Prothrombin Time (Protime)PT. 23.8 SECONDS (11.7-14.9)
--- NOTE | 2021-04-11 07:06 | NURSING ---
report called to lab scientist nurse Humble at this time. Family is at bedside. Awaiting transport
--- NOTE | 2021-04-11 07:32 | PN.CARD_ITS ---
Subjective Subjective The patient has had waxing and waning sharp chest discomfort radiating throughout his chest/back. He denies any acute respiratory issues. He denies any ongoing nausea, emesis, and he has not been diaphoretic. Objective Data Vital Signs: Vital Signs Temp Pulse Resp BP Pulse Ox 97.1 F L 50 L 16 109/62 97 04/11/21 06:47 04/11/21 06:47 04/11/21 06:47 04/11/21 06:47 04/11/21 06:47 Oxygen Flow Rate (L/min) 2 Oxygen Delivery Method Nasal Cannula Weight: 180 lb 15.992 oz Body Mass Index (BMI) 23.1 Intake & Output: Intake and Output for Last 24 Hours 04/09/21 04/10/21 04/11/21 23:59 23:59 23:59 Intake Total 1350 / 1650 1289.55 / 1289.55 Output Total 600 / 1100 800 / 800 Balance 750 / 550 489.55 / 489.55 Lab / Micro Data Result Diagrams: 04/11/21 05:26 04/11/21 05:26 Labs: Laboratory Results - last 24 hr 04/10/21 11:02: WBC 6.5, RBC 4.47 L, Hgb 14.4, Hct 44.1, MCV 98.7 H, MCH 32.2 H, MCHC 32.7, RDW Std Deviation 46.1 H, RDW Coeff of Edwige 12.7, Plt Count 180, MPV 10.4, Immature Gran % (Auto) 0.500, Neut % (Auto) 76.0 H, Lymph % (Auto) 18.1 L, Meade % (Auto) 4.7, Eos % (Auto) 0.5, Baso % (Auto) 0.2, Absolute Neuts (auto) 4.9, Absolute Lymphs (auto) 1.17, Nucleated RBC % 0 04/10/21 11:02: PT 21.9 H, INR 2.0 04/10/21 11:02: Sodium 139, Potassium 4.3, Chloride 109 H, Carbon Dioxide 27.0, Anion Gap 3 L, BUN 18, Creatinine 0.91, Estim Creat Clear Calc 86.57, Est GFR (MDRD) Af Amer 106, Est GFR (MDRD) Non-Af 88, BUN/Creatinine Ratio 19.9, Glucose 125 H, Calcium 8.4 L, Troponin I High Sens 1036.2 H* 04/10/21 14:30: Troponin I High Sens 772.8 H* 04/10/21 18:00: Troponin I High Sens 908.0 H* 04/10/21 18:00: APTT 39.0 H 04/11/21 00:45: PT 24.6 H, INR 2.3, APTT 95.4 H* 04/11/21 05:26: WBC 8.6, RBC 4.32 L, Hgb 13.9, Hct 42.8, MCV 99.1 H, MCH 32.2 H, MCHC 32.5, RDW Std Deviation 46.2 H, RDW Coeff of Edwige 12.6, Plt Count 170, MPV 10.3, Immature Gran % (Auto) 0.300, Neut % (Auto) 79.1 H, Lymph % (Auto) 13.0 L, Meade % (Auto) 7.3, Eos % (Auto) 0.1, Baso % (Auto) 0.2, Absolute Neuts (auto) 6.8, Absolute Lymphs (auto) 1.12, Nucleated RBC % 0 04/11/21 05:26: Sodium 139, Potassium 4.0, Chloride 107, Carbon Dioxide 29.0, Anion Gap 3 L, BUN 15, Creatinine 0.76, Estim Creat Clear Calc 78.58, Est GFR (MDRD) Af Amer 129, Est GFR (MDRD) Non-Af 107, BUN/Creatinine Ratio 19.7, Glucose 114 H, Calcium 7.9 L, Total Bilirubin 1.60 H, AST 20, ALT 14 L, Alkaline Phosphatase 66, Total Protein 6.6, Albumin 3.3, Globulin 3.3, Albumin/Globulin Ratio 1.0 04/11/21 05:26: APTT 40.7 H 04/11/21 05:26: PT 23.8 H, INR 2.2 Cardiology Labs/Tests 04/10/21 11:02: WBC 6.5, RBC 4.47 L, Hgb 14.4, Hct 44.1, MCV 98.7 H, MCH 32.2 H, MCHC 32.7, Plt Count 180, MPV 10.4, Immature Gran % (Auto) 0.500, Neut % (Auto) 76.0 H, Lymph % (Auto) 18.1 L, Meade % (Auto) 4.7, Eos % (Auto) 0.5, Baso % (Auto) 0.2, Absolute Neuts (auto) 4.9, Nucleated RBC % 0 04/10/21 11:02: PT 21.9 H, INR 2.0 04/10/21 11:02: Sodium 139, Potassium 4.3, Chloride 109 H, Carbon Dioxide 27.0, Anion Gap 3 L, BUN 18, Creatinine 0.91, Est GFR (MDRD) Af Amer 106, Est GFR (MDRD) Non-Af 88, BUN/Creatinine Ratio 19.9, Glucose 125 H, Calcium 8.4 L 04/10/21 18:00: APTT 39.0 H 04/11/21 00:45: PT 24.6 H, INR 2.3, APTT 95.4 H* 04/11/21 05:26: WBC 8.6, RBC 4.32 L, Hgb 13.9, Hct 42.8, MCV 99.1 H, MCH 32.2 H, MCHC 32.5, Plt Count 170, MPV 10.3, Immature Gran % (Auto) 0.300, Neut % (Auto) 79.1 H, Lymph % (Auto) 13.0 L, [place] % (Auto) 7.3, Eos % (Auto) 0.1, Baso % (Auto) 0.2, Absolute Neuts (auto) 6.8, Nucleated RBC % 0 04/11/21 05:26: Sodium 139, Potassium 4.0, Chloride 107, Carbon Dioxide 29.0, Anion Gap 3 L, BUN 15, Creatinine 0.76, Est GFR (MDRD) Af Amer 129, Est GFR (MDRD) Non-Af 107, BUN/Creatinine Ratio 19.7, Glucose 114 H, Calcium 7.9 L, Total Bilirubin 1.60 H 04/11/21 05:26: APTT 40.7 H 04/11/21 05:26: PT 23.8 H, INR 2.2 Rhythm: Sinus rhythm EKG: Sinus rhythm ECHO: As noted below CXR: As noted below Chest CT Scan: As noted below Radiography Diagnostic Testing: Radiology Impression Chest X-Ray 04/10/21 11:47 IMPRESSION: No acute cardiopulmonary process identified. Electronically Signed: Jeffrey Wilson MD at 12:16 EDT Tel , Service support , Echocardiogram 04/10/21 13:09 Interpretation Summary Left ventricular systolic function is normal. The estimated ejection fraction is 55 %. The left atrium is mildly enlarged. Anterior leaflet diffuse mitral valve thickening. The mitral papillary muscle appears thickened and/or calcified. Trivial mitral valve insufficiency. Trivial tricuspid valve insufficiency. Mild diffuse aortic valve thickening. Mild focal aortic valve calcification. Trivial aortic valve insufficiency. Trivial pulmonic valve insufficiency. Trivial pericardial effusion. There are no echocardiographic indications of cardiac tamponade. Right ventricular systolic pressure estimated to be 22 mmHg. No evidence for diastolic dysfunction. Ordering Physician: Liss Hamilton Referring Physician: JOSS BERMUDEZ Performed By: Charline Burkett [facility] Chest CT 04/10/21 17:11 IMPRESSION: No acute abnormalities in the chest. Specifically, no evidence of acute pulmonary emboli to segmental level. Cardiomegaly. Electronically Signed: Ganga Anaya MD at 18:58 EDT Tel , Service support , Physical Exam Const alert and oriented x3 Orientation / Consciousness: awake HEENT normocephalic, head/scalp atraumatic and hearing grossly normal bilaterally Eyes PERRL, EOMs intact bilaterally and conjunctivae normal Neck supple and no JVD Chest Chest Narrative: Positive tenderness to palpation over the anterior thorax/chest Resp normal respiratory effort and clear to auscultation bilaterally Cardio regular rate, regular rhythm, S1 normal heart sound and S2 normal heart sound GI normal to inspection, nondistended, normoactive bowel sounds Extremity no pedal edema Assessment & Plan Assessment/Plan (1) Chest pain: QUALIFIERS: Chest pain type: unspecified Qualified Code(s): R07.9 - Chest pain, unspecified PLAN: The patient presents with a somewhat atypical chest discomfort. He describes it as a sharp right-sided discomfort involving the right upper extremity. He has had intermittent radiation throughout his chest and back. He does admit it is partially reproducible with palpation over the right anterior thorax. 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 He does not believe he has had any underlying gastrointestinal disease process that he is aware of that would contribute to this finding. He is being monitored. His rate and rhythm are being followed. His initial troponin I level is abnormal. It has been decreasing. His initial ECG demonstrates sinus rhythm with no acute ECG changes. He has had follow-up ECGs as previously noted with both right-sided ECGs, left posterior ECGs, etc., with no obvious new acute changes. He has undergone evaluation with a transthoracic echocardiogram, chest x-ray, and chest CT scan as noted. He has continued medical therapy with a combination of aspirin/antiplatelet therapy, nitrates, morphine sulfate, as well as GI related medications with antacids and PPIs. He has continued chest discomfort. The etiology is still in question as to whether or not this is related to underlying CAD versus a non-CAD process. Thus, it was felt the patient should proceed with further evaluation with diagnostic cardiac catheterization. As the patient's INR, despite not receiving his anticoagulant therapy (warfarin/Coumadin), remains somewhat elevated the recommendation has been that this be performed via the upper extremity approach in the hopes of avoiding a femoral artery approach. The procedure and risks have been discussed with the patient as noted before. He was agreeable to this approach. (2) Non-ST elevation NE (NSTEMI): PLAN: The patient does have abnormal cardiac enzymes. This would be compatible with an acute non-ST segment elevation NE. Is unclear at the moment whether this is a primary variant or whether his cardiac enzymes may be a type II event brought out by supply demand mismatch brought out by other noncardiovascular concerns. He does have a history of neurologic disease with Parkinson's disease and a reported CVA. At the moment he does not believe he has had any acute neurologic changes. His troponin I levels have been decreasing. His ECGs are as noted. His noninvasive studies were reviewed. At the present time based upon his ongoing concerns as noted above he will proceed with further evaluation with diagnostic cardiac catheterization. (3) Factor V Leiden mutation: PLAN: He does have a factor V Leiden deficiency. He states he has had DVT in the past. To the best of his knowledge he has never had pulmonary emboli. He states he has been anticoagulated for several years without any obvious recurrent issues to the best of his knowledge. His oral anticoagulant therapy is on temporary hold pending further cardiac evaluation and care. (4) Anticoagulated on Coumadin: PLAN: His oral anticoagulation is on temporary hold pending further cardiac evaluation care. He will continue anticoagulant therapy as deemed appropriate in the interim. (5) Parkinsons disease: PLAN: He does have a history of Parkinson's disease. He is on medical therapy for. Is unclear whether this can be a contributing factor to his abnormal enzyme levels. (6) CVA (cerebral vascular accident): QUALIFIERS: CVA mechanism: unspecified Qualified Code(s): 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infarction, unspecified PLAN: He does have a history of a CVA. He states he has had no new acute neurologic events. Addt'l Comments At the present time the patient will continue his cardiac evaluation care as noted. If his cardiovascular evaluation is unremarkable with respect to CAD or other etiologies to explain his ongoing discomfort then he should be considered for further noncardiac evaluation which may potentially include gastrointestinal evaluation for any possible esophageal, gastric, or gallbladder related issues that would be contributing to his ongoing symptoms, etc. as well as for the potential of any musculoskeletal related events that may be a contributing factor to his ongoing symptoms, etc. This note was generated using a voice recognition system and there may be incorrect words, spelling or punctuation that were not noted when reviewing the office note prior to saving. Procedure Criteria Type of Procedure Procedure Type: Elective Elective Risks - COVID COVID Risk Discussion: The surgeon/proceduralist and patient have discussed in detail the risk of exposure to and/or potential harm posed by the COVID-19 virus with having a surgery/procedure at this time versus the risk of delaying the surgery/procedure. It is not possible to know either the risk of delaying the surgery or procedure or chance of getting an infection with perfect accuracy, but a joint decision was made between the patient and the surgeon/proceduralist to proceed at this time with the scheduled surgery/procedure as indicated on the consent form.
--- NOTE | 2021-04-11 10:39 | CL.D_ITS ---
Patient Name: GERARDO FANG Study Date: 04/11/2021 Performing: Joss Pina MD Ht: 74 inches 188 cm : 1950 Wt: 181 lbs 82 kg Age: 71 Gender: male BSA: 2.08 PROCEDURE(S) PERFORMED RT85-ZHT/COR/LV CLINICAL PROFILE AND INDICATIONS Indications: Worsening Angina, ACS <= 24 hrs Heart Failure: None Stress/Imaging Stress/Image Study Performed: No Angina Classification Anginal Classification w/in 2 Weeks: CCS IV CAD Presentations: Unstable angina. Non-STEMI. CONCLUSIONS Normal Left Ventricular End Diastolic Pressure Normal LV size, wall motion,and systolic function LVEF: by LV gram 65 % Normal coronary arteries Comment: Fluoroscopic images demonstrate findings c/w a linear density that appears to be anteriorly located and potentially associated with the right ventricle with a differential diagnosis including a n IVC filter strut that has fractured and migrated to the right ventricle. 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 RECOMMENDATIONS Risk factor modification Medical therapy Consider transfer to a tertiary care center for further evaluation / care regarding the linear echode nsity in the right ventricle and the IVC filter. Case discussed / reviewed with Dr. Harper of Interventional Cardiololgy. DESCRIPTION OF PROCEDURE The patient arrived to the procedure lab. The risks and benefits of the procedure as well as a full d escription of our services here and current unavailability of surgical backup were fully explained to the patient and/or their significant other prior to the catheterization. The Timeout was completed, verifying the correct patient and procedure. The patient's procedural site was prepped and draped in the usual fashion. Local anesthetic was given subcutaneously to right radial region with Lidocaine 2% . Using a modified Seldinger technique, arterial access was obtained via the right radial artery, a 5 Fr sheath was inserted. Left Coronary Artery selective angiography was performed in multiple views u sing a 5 Fr. 4.0 [place] catheter. Right Coronary Artery selective angiography was then performed in mu ltiple views using a 5 Fr. 4.0 [place] catheter. Left Ventriculography was performed in CHANG projection using a 5 Fr. Pig[place] catheter. LV to AO pullback pressures were then recorded.The arterial sheath was pulled and a TR Band was applied for hemostasis, Sheath flushed prior to removal, 10cc air inserted. CORONARY ANGIOGRAPHY DOMINANCE: Right Dominant LEFT HEART ASSESSMENT Left Ventricular Ejection Fraction: by LV Gram 65 % Normal LV wall motion Normal Left Ventricular End Diastolic Pressure LVEDP: 4 mmHg LEFT MAIN: Angiographically normal LEFT ANTERIOR DESCENDING ARTERY: Angiographically normal CIRCUMFLEX ARTERY: Angiographically normal RIGHT CORONARY ARTERY: Angiographically normal AORTIC ROOT: Angiographically normal COMPLICATIONS No Complications PROCEDURE MEDICATIONS Oxygen: 2 L/min via nasal cannula Heparin given IA 04/11/2021 07:57:01 Verapamil 2.5mg, Ntg 100mcgs, 3000 units of Heparin given IA 04/11/2021 07:57:01 IV Fluids: .9 NaCl increased to W/O ml/hr 04/11/2021 07:53:25 SUMMARY OF HEMODYNAMIC DATA Time AIR REST ECG 07:30:29 AO 80/38 (55) SA 07:58:52 LV 94/-13, 5 08:04:46 LV 97/-13, 4 08:04:52 LV 97/-12, 5 08:06:02 LV 100/-11, 6 08:06:08 LVp 98/-14, 5 08:06:15 AOp 90/39 (60) 08:06:20 Signed By Joss Pina MD On 04/11/2021 10:38:21 AM Joss Pina MD
--- NOTE | 2021-04-11 14:58 | CHAPLAIN ---
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 ___ Other (describe below) Sacrament/Intervention _x__ Active listening ___ Anointing ___ Hinduism ___ Bereavement ___ Communion ___ Jessika exploration ___ ___ Life review _x__ Prayer ___ Reconciliation ___ Sacrament of Sick _x__ Supportive presence ___ Wedding ___ Other (describe below) Pastoral Comments patient is sleeping and spouse is with him; pt has not been able to sleep or relax so support was offered and received by spouse; pt will be transferred to larger hospital for heart procedure; concerns are for getting to hospital safely and to getting remedy; 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
--- NOTE | 2021-04-11 15:06 | PCM.DC ---
Discharge Instructions Diet Discharge Diet: Low fat / Low cholesterol and 2000 mg Sodium Diet Activity Discharge Activity: Return to Normal Activity Follow Up Care Test Results: Test results from this visit will be discussed in further detail at your follow-up appointment, if applicable. Discharge Plan Admission Admit Date/Time: 04/10/21 13:09 Primary Reason for Your Visit: Acute NSTEMI Attending Provider: Liss Hamilton Primary Care Provider: Joss Heredia Instructions Patient Instructions: ED Chest Pain, Noncardiac Discharge Orders/Prescriptions Prescriptions: No Action warfarin 3 mg tablet 1.5 mg PO DAILY RF: 0 warfarin 6 mg tablet 6 mg PO DAILY RF: 0 carbidopa-levodopa 25-100 mg tablet 2 tab PO 5X/DAY RF: 0 entacapone 200 mg Tablet 200 mg PO 4X/DAY RF: 0 Referrals / Follow Up: Joss Heredia MD [Primary Care Provider] - Disposition Discharge Orders: Discharge Patient (Routine); Ordered 04/11/21 Ordered By: Dr. Liss Hamilton
--- NOTE | 2021-04-11 15:09 | PCM.DC.SUM ---
Providers Date of Admission: 04/10/21 Date of Discharge: 04/11/21 Primary Care Physician: Dr. Joss Bermudez MD Reason For Visit: ACUTE NSTEMI Diagnosis Discharge Diagnosis (1) Chest pain: Status: Acute Code(s): R07.9 - Chest pain, unspecified Qualifiers: Chest pain type: unspecified Qualified Code(s): R07.9 - Chest pain, unspecified (2) Non-ST elevation OR (NSTEMI): Status: Acute Code(s): I21.4 - Non-ST elevation (NSTEMI) myocardial infarction (3) Factor V Leiden mutation: Status: Chronic Code(s): D68.51 - Activated protein C resistance (4) Anticoagulated on Coumadin: Status: Acute Code(s): Z79.01 - longterm (current) use of anticoagulants (5) Parkinsons disease: Status: Chronic Code(s): G20 - Parkinson's disease (6) CVA (cerebral vascular accident): Status: Chronic Code(s): 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infarction, unspecified Qualifiers: CVA mechanism: unspecified Qualified Code(s): 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infarction, unspecified Medications at Discharge Home Medications carbidopa-levodopa 2 tab PO 5X/DAY 04/10/21 warfarin 1.5 mg PO DAILY 04/10/21 warfarin 6 mg PO DAILY 04/10/21 entacapone 200 mg PO 4X/DAY 04/11/21 Hospital Course Operations None Procedures Cardiac catheterization (04/11/21) Summary of Care Provided Minutes Spent on Discharge: 55 Hospital Course: 71 M who presents with chest pain ongoing for weeks. Chest pain comes on suddenly and is worse with exertion. It is usually substernal and radiates to the left shoulder and then across his chest. It was associated with diaphoresis and fatigue. He denied any dizziness or palpitations. He denied unusual leg swelling or orthopnea. This morning he had a sudden onset of chest pain that was worse than usual. It appeared to somehow radiates down his left arm. I got him concerned. EKG in the ED showed sinus bradycardia. His troponins were elevated more than 1000. Patient was admitted and managed as acute non-STEMI. Cardiology was consulted. Patient underwent CT of the chest was negative for acute PE. He underwent 2D echo that showed EF of 55%. He underwent cardiac cath on 04/11/21 that showed foreign body in the right ventricle likely secondary to fragment of his IVC filter. Patient was transferred to [facility] for further management. Physical Exam Narrative Physical exam: General: Alert, Oriented x3, Cooperative, No apparent distress, Well developed, flat affect HEENT: Atraumatic Oral: Moist Mucosa Neck: Supple Lungs: Clear to auscultation Cardiovascular: HS I+II, regular, no murmurs Abdomen: Bowel Sounds Present, Soft, Non Tender Extremities: No edema Medical Records Data Medical Nutrition Assessment Dietitian: Nutrition Therapy Diagnosis Start: 04/11/21 11:24 Freq: Status: Active Protocol: Document 04/11/21 11:30 AG (Rec: 04/11/21 11:30 AG [id number]) Nutrition Malnutrition Evidence of Malnutrition Exists No Clinical Problem None at this time Status Active Problem Recommendation Dietitian Recommendations/Changes Cardiac/Heart Healthy Diet Weight / BMI Weight Weight: 82.1 kg Body Mass Index (BMI) 23.1 ABG / Lab / Microbiology Data Result Diagrams: 04/11/21 05:26 04/11/21 05:26 Laboratory: Laboratory Results - last 24 hr 04/10/21 14:30: Troponin I High Sens 772.8 H* 04/10/21 18:00: Troponin I High Sens 908.0 H* 04/10/21 18:00: APTT 39.0 H 04/11/21 00:45: PT 24.6 H, INR 2.3, APTT 95.4 H* 04/11/21 05:26: WBC 8.6, RBC 4.32 L, Hgb 13.9, Hct 42.8, MCV 99.1 H, MCH 32.2 H, MCHC 32.5, RDW Std Deviation 46.2 H, RDW Coeff of Edwige 12.6, Plt Count 170, MPV 10.3, Immature Gran % (Auto) 0.300, Neut % (Auto) 79.1 H, Lymph % (Auto) 13.0 L, [place] % (Auto) 7.3, Eos % (Auto) 0.1, Baso % (Auto) 0.2, Absolute Neuts (auto) 6.8, Absolute Lymphs (auto) 1.12, Nucleated RBC % 0 04/11/21 05:26: Sodium 139, Potassium 4.0, Chloride 107, Carbon Dioxide 29.0, Anion Gap 3 L, BUN 15, Creatinine 0.76, Estim Creat Clear Calc 78.58, Est GFR (MDRD) Af Amer 129, Est GFR (MDRD) Non-Af 107, BUN/Creatinine Ratio 19.7, Glucose 114 H, Calcium 7.9 L, Total Bilirubin 1.60 H, AST 20, ALT 14 L, Alkaline Phosphatase 66, Total Protein 6.6, Albumin 3.3, Globulin 3.3, Albumin/Globulin Ratio 1.0 04/11/21 05:26: APTT 40.7 H 04/11/21 05:26: PT 23.8 H, INR 2.2 Radiography Diagnostic Testing: Radiology Impression Echocardiogram 04/10/21 13:09 Interpretation Summary Left ventricular systolic function is normal. The estimated ejection fraction is 55 %. The left atrium is mildly enlarged. Anterior leaflet diffuse mitral valve thickening. The mitral papillary muscle appears thickened and/or calcified. Trivial mitral valve insufficiency. Trivial tricuspid valve insufficiency. Mild diffuse aortic valve thickening. Mild focal aortic valve calcification. Trivial aortic valve insufficiency. Trivial pulmonic valve insufficiency. Trivial pericardial effusion. There are no echocardiographic indications of cardiac tamponade. Right ventricular systolic pressure estimated to be 22 mmHg. No evidence for diastolic dysfunction. Comment: Upon further review of the transthoracic echocardiogram there appears to be 2D echocardiographic images that demonstrate the intermittent appearance of a linear echodensity associated with the right ventricle of uncertain etiology. Ordering Physician: Liss Hamilton Referring Physician: JOSS BERMUDEZ Performed By: Charline Burkett RDCS Chest CT 04/10/21 17:11 IMPRESSION: No acute abnormalities in the chest. Specifically, no evidence of acute pulmonary emboli to segmental level. Cardiomegaly. Electronically Signed: Ganga Anaya MD at 18:58 EDT Tel , Service support , D/C Instructions Discharge Diet: Low fat / Low cholesterol and 2000 mg Sodium Diet Meaningful Use Info Meaningful Use Diagnoses (Choose all that apply): AMI AMI/Post PCI/Angioplasty Aspirin given w/in 24hrs of arrival?: Yes ASA at discharge?: Yes Statins at discharge?: Yes Bandar/ARB at discharge?: Yes Beta Naomy at discharge?: Yes Done w/ Acute OR measure.: Yes Discharge Plan Admission Admit Date/Time: 04/10/21 13:09 Primary Reason for Your Visit: Acute NSTEMI Attending Provider: Liss Hamilton Primary Care Provider: Joss Bermudez Instructions Patient Instructions: ED Chest Pain, Noncardiac Discharge Orders/Prescriptions Prescriptions: No Action warfarin 3 mg tablet 1.5 mg PO DAILY RF: 0 warfarin 6 mg tablet 6 mg PO DAILY RF: 0 carbidopa-levodopa 25-100 mg tablet 2 tab PO 5X/DAY RF: 0 entacapone 200 mg Tablet 200 mg PO 4X/DAY RF: 0 Referrals / Follow Up: Joss Bermudez MD [Primary Care Provider] - Disposition Discharge Orders: Discharge Patient (Routine); Ordered 04/11/21 Ordered By: Dr. Liss Hamilton Charges/Coding Visit Charges Inpatient E&M: 24404 Disch Hosp
[2021-04-11] MEDS: Acetaminophen 325 MG Tablet 650 MG PO (15:38)
[2021-04-11] MEDS: 0.9% Saline Lock 10 ML Syringe IV (18:37)
[2021-04-11] MEDS: Morphine 2 MG/ML Syringe IV (18:37)
[2021-04-11] MEDS: Atorvastatin Calcium 80 MG Tablet PO (20:33)
[2021-04-12] MEDS: 0.9% Normal Saline 1,000 ML 75 ML IV (02:33)
[2021-04-12 02:59] VITALS: PULSE 68
[2021-04-12 03:00] VITALS: BP 99/61; PULSE 68; RESP 18; TEMP 36.3; O2SAT 96
[2021-04-12] MEDS: Morphine 2 MG/ML Syringe IV (04:55)
[2021-04-12] MEDS: Carbidopa/Levodopa 25/100 Tablet PO ×2 (04:55→07:50)
[2021-04-12] MEDS: 0.9% Saline Lock 10 ML Syringe IV (04:55)
--- NOTE | 2021-04-12 05:09 | EKG12_ITS ---
Test Reason : AM EKG Blood Pressure : / mmHG Vent. Rate : 049 BPM Atrial Rate : 049 BPM P-R Int : 148 ms QRS Dur : 098 ms QT Int : 438 ms P-R-T Axes : 024 046 039 degrees QTc Int : 395 ms Sinus bradycardia Abnormal ECG Confirmed by GIO MATOS, EMIL ([id number]), technical writer and editor KENY FLORES ([id number]) on 04/13/2021 10:16:42 AM Referred By: TIM Confirmed By:EMIL POWERS MD
--- NOTE | 2021-04-12 05:30 | NURSING ---
Report given to [facility] ARLINE Loving.
[2021-04-12 06:40] VITALS: PULSE 71
[2021-04-12 07:00] VITALS: BP 122/78; PULSE 75; RESP 18; TEMP 36.6; O2SAT 95
[2021-04-12] MEDS: Aspirin E.C. 81 MG Tablet PO (07:50)
--- NOTE | 2021-04-12 08:05 | PCM.PN.CARD ---
Subjective Subjective The patient is awake and alert. He has had ongoing waxing and waning chest discomfort which she has described as sharp chest discomfort. He describes no acute respiratory events. Objective Data Vital Signs: Vital Signs Temp Pulse Resp BP Pulse Ox 97.8 F 75 18 122/78 H 95 04/12/21 07:00 04/12/21 07:00 04/12/21 07:00 04/12/21 07:00 04/12/21 07:00 Oxygen Flow Rate (L/min) 2 Oxygen Delivery Method Room Air Weight: 186 lb 11.704 oz Body Mass Index (BMI) 23.1 Intake & Output: Intake and Output for Last 24 Hours 04/10/21 04/11/21 04/12/21 23:59 23:59 23:59 Intake Total 1350 / 1650 2893.75 / 3093.75 1140 / 1140 Output Total 600 / 1100 900 / 1050 425 / 425 Balance 750 / 550 1993.75 / 2043.75 715 / 715 Lab / Micro Data Result Diagrams: 04/11/21 05:26 04/11/21 05:26 Cardiology Labs/Tests Rhythm: Sinus rhythm EKG: Sinus rhythm; no new acute ECG changes ECHO: As noted below Cardiac Cath: CONCLUSIONS Normal Left Ventricular End Diastolic Pressure Normal LV size, wall motion,and systolic function LVEF: by LV gram 65 % Normal coronary arteries Comment: Fluoroscopic images demonstrate findings c/w a linear density that appears to be anteriorly located and potentially associated with the right ventricle with a differential diagnosis including an IVC filter strut that has fractured and migrated to the right ventricle. Comment: additional fluoroscopic images demonstrate an IVC filter present with the appearance of 11 struts (reported as should have 12 struts). RECOMMENDATIONS Risk factor modification Medical therapy Consider transfer to a tertiary care center for further evaluation / care regarding the linear echodensity in the right ventricle and the IVC filter. Case discussed / reviewed with Dr. Harper of Interventional Cardiololgy. DESCRIPTION OF PROCEDURE The patient arrived to the procedure lab. The risks and benefits of the procedure as well as a full description of our services here and current unavailability of surgical backup were fully explained to the patient and/or their significant other prior to the catheterization. The Timeout was completed, verifying the correct patient and procedure. The patient's procedural site was prepped and draped in the usual fashion. Local anesthetic was given subcutaneously to right radial region with Lidocaine 2%. Using a modified Seldinger technique, arterial access was obtained via the right radial artery, a 5Fr sheath was inserted. Left Coronary Artery selective angiography was performed in multiple views using a 5 Fr. 4.0 Madison catheter. Right Coronary Artery selective angiography was then performed in multiple views using a 5 Fr. 4.0 Madison catheter. Left Ventriculography was performed in CHANG projection using a 5 Fr. Pigtail catheter. LV to AO pullback pressures were then recorded.The arterial sheath was pulled and a TR Band was applied for hemostasis, Sheath flushed prior to removal, 10cc air inserted. CORONARY ANGIOGRAPHY DOMINANCE: Right Dominant LEFT HEART ASSESSMENT Left Ventricular Ejection Fraction: by LV Gram 65 % Normal LV wall motion Normal Left Ventricular End Diastolic Pressure LVEDP: 4 mmHg LEFT MAIN: Angiographically normal LEFT ANTERIOR DESCENDING ARTERY: Angiographically normal CIRCUMFLEX ARTERY: Angiographically normal RIGHT CORONARY ARTERY: Angiographically normal AORTIC ROOT: Angiographically normal Radiography Diagnostic Testing: Radiology Impression Echocardiogram 04/10/21 13:09 Interpretation Summary Left ventricular systolic function is normal. The estimated ejection fraction is 55 %. The left atrium is mildly enlarged. Anterior leaflet diffuse mitral valve thickening. The mitral papillary muscle appears thickened and/or calcified. Trivial mitral valve insufficiency. Trivial tricuspid valve insufficiency. Mild diffuse aortic valve thickening. Mild focal aortic valve calcification. Trivial aortic valve insufficiency. Trivial pulmonic valve insufficiency. Trivial pericardial effusion. There are no echocardiographic indications of cardiac tamponade. Right ventricular systolic pressure estimated to be 22 mmHg. No evidence for diastolic dysfunction. Comment: Upon further review of the transthoracic echocardiogram there appears to be 2D echocardiographic images that demonstrate the intermittent appearance of a linear echodensity associated with the right ventricle of uncertain etiology. Ordering Physician: Liss Hamilton Referring Physician: JOSS BERMUDEZ Performed By: Charline Burkett RDCS Physical Exam Narrative This is a 71-year-old white male appears be resting comfortably at the moment in no acute distress. Const alert, oriented x3 and no apparent distress Orientation / Consciousness: awake HEENT normocephalic, head/scalp atraumatic and hearing grossly normal bilaterally Eyes PERRL, EOMs intact bilaterally and conjunctivae normal Neck full ROM, supple and no JVD Chest Chest Narrative: Positive tenderness to palpation over the anterior thorax/chest Resp normal respiratory effort and clear to auscultation bilaterally Cardio regular rate, regular rhythm, S1 normal heart sound and S2 normal heart sound GI normal to inspection, nondistended, normoactive bowel sounds Extremity no pedal edema Peripheral Pulses: Yes radial pulses present right (No bruits: No hematoma) 2+ Skin no rashes or lesions noted Neuro oriented x3 and moves all extremities Psych mental status grossly normal Assessment & Plan Assessment/Plan (1) Chest pain: QUALIFIERS: Chest pain type: unspecified Qualified Code(s): R07.9 - Chest pain, unspecified PLAN: The patient presents with a somewhat atypical chest discomfort. He describes it as a sharp right-sided discomfort involving the right upper extremity. He has had intermittent radiation throughout his chest and back. He does admit it is partially reproducible with palpation over the right anterior thorax. The patient has undergone further noninvasive cardiovascular radiologic studies and an invasive cardiovascular study with diagnostic cardiac catheterization. Based upon review of the patient's clinical course and his noninvasive and invasive studies he appears to have angiographically normal-appearing coronary arteries, overall preserved left ventricular wall motion and systolic function, no hemodynamically significant valvular heart disease, and no report of great vessel disease such as thoracic aortic disease/dissection or pulmonary emboli. It appears, based upon review of his noninvasive and invasive studies, that the working diagnosis at this time is that the patient's previously placed IVC filter (2012) has a fractured strut that has migrated to the right ventricle and resulting in his chest discomfort and his cardiac troponin enzyme release. At the present time the recommendation was for the patient to be transferred to a tertiary care center for consideration of retrieval of the fractured migrated strut as well as the IVC filter-hopefully both percutaneously, knowing that there is a possibility that surgical intervention may be required to retreat if the fractured migrated strut and the IVC filter. As previously noted the patient's case was discussed and reviewed with Dr. Richard Webb of interventional cardiology at [facility]. Status post review of the case he agreed to accept the patient in transfer for further evaluation and care. (2) Non-ST elevation [place] (NSTEMI): PLAN: At the present time the patient does have findings compatible with a non-ST segment elevation [place]. The working diagnosis is this is a type II event as it is not from underlying CAD and, without any other obvious etiology, appears to be related to his IVC filter and fractured strut that has migrated into the right ventricle. (3) Factor V Leiden mutation: PLAN: He does have a factor V Leiden deficiency. He states he has had DVT in the past. To the best of his knowledge he has never had pulmonary emboli. He has been chronically anticoagulated. Upon further review of his case he had received an IVC filter in 2012. At the present time, as noted above, there is concerned that the IVC filter has a fractured strut that has migrated to the right ventricle. The tentative plan, at the tertiary care center, is to not only retrieve the fractured strut from the right ventricle but also to remove the IVC filter as there is concerned that it could potentially fracture further. (4) Anticoagulated on Coumadin: PLAN: His oral anticoagulation is on temporary hold pending further cardiac evaluation care. He will continue anticoagulant therapy as deemed appropriate in the interim. (5) Presence of IVC filter: PLAN: As noted above the patient did have an IVC filter placed in 2012. This was reported as a [employer] Eclipse IVC filter. Based upon review of this device it appears the device should have 12 struts. Based upon the fluoroscopic images performed in the cardiac catheterization laboratory it appeared this device had only [address]. Thus, as noted above, the working diagnosis is that a strut has fractured from this device and is migrated to the right ventricle. At the present time the patient is being monitored. Again the plan is for the patient to be transferred to a tertiary care [id number] further evaluation and care with the hope that both the fractured strut in the right ventricle and the IVC filter can be removed percutaneously, knowing, that if this cannot be performed the patient may have to be considered for surgical intervention and retrievable of the aforementioned fractured strut and IVC filter. (6) Parkinsons disease: PLAN: He does have a history of Parkinson's disease. He is on medical therapy for. Is unclear whether this can be a contributing factor to his abnormal enzyme levels. (7) CVA (cerebral vascular accident): QUALIFIERS: CVA mechanism: unspecified Qualified Code(s): 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infarction, unspecified PLAN: He does have a history of a CVA. He states he has had no new acute neurologic events. Addt'l Comments The patient's case has been discussed in great detail and length with the patient, his spouse, his daughter, Dr. Calvo of the [facility] staff, Dr. Harper of the interventional cardiology staff at [facility], and Dr. Webb of interventional cardiology at [facility]. The patient, along with his spouse and daughter, were in agreement with transfer to [facility] for further tertiary care center evaluation and care. This note was generated using a voice recognition system and there may be incorrect words, spelling or punctuation that were not noted when reviewing the office note prior to saving.
--- NOTE | 2021-04-12 10:42 | PCM.PN.HOSP ---
Subjective Subjective Late entry note: Patient was seen and examined on 04/11/21. Discharge summary was done on the day. Patient however did not get discharged. Patient was seen and examined. Denied any new complaints. He had a cardiac cath today that showed normal coronaries. He however was seen to have a foreign body in the right ventricle. He will be transferred to [facility]. Objective Data Objective Data Vital Signs: Vital Signs Temp Pulse Resp BP Pulse Ox 97.8 F 75 18 122/78 H 95 04/12/21 07:00 04/12/21 07:00 04/12/21 07:00 04/12/21 07:00 04/12/21 07:00 Oxygen Flow Rate (L/min) 2 Oxygen Delivery Method Room Air Weight: 84.7 kg Body Mass Index (BMI) 23.1 Intake & Output: Intake and Output for Last 24 Hours 04/10/21 04/11/21 04/12/21 23:59 23:59 23:59 Intake Total 1350 / 1650 2893.75 / 3093.75 1140 / 1140 Output Total 600 / 1100 900 / 1050 425 / 425 Balance 750 / 550 1993.75 / 2043.75 715 / 715 Lab / Micro Data Result Diagrams: 04/11/21 05:26 04/11/21 05:26 Physical Exam Narrative Physical exam: General: Alert, Oriented x3, Cooperative, No apparent distress, Well developed, flat affect HEENT: Atraumatic Oral: Moist Mucosa Neck: Supple Lungs: Clear to auscultation Cardiovascular: HS I+II, regular, no murmurs Abdomen: Bowel Sounds Present, Soft, Non Tender Extremities: No edema Assessment & Plan Assessment/Plan (1) Chest pain: QUALIFIERS: Chest pain type: unspecified Qualified Code(s): R07.9 - Chest pain, unspecified (2) Non-ST elevation [place] (NSTEMI): (3) Factor V Leiden mutation: (4) Anticoagulated on Coumadin: (5) Parkinsons disease: (6) CVA (cerebral vascular accident): QUALIFIERS: CVA mechanism: unspecified Qualified Code(s): 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infarction, unspecified PLAN: 1. Acute NSTEMI related to right ventricular foreign body?IVC filter spoke status post cardiac catheterization that showed clean coronaries EKG shows normal sinus rhythm, no acute ST-T changes Admitting troponin is more than 1000, 2D echo shows EF of 55%, no acute abnormality Cardiology following 2. Factor V Leyden mutation with history of stroke and DVTs On Coumadin, INR is 2.2 Discussed with cardiology; will discontinue heparin 3. Parkinson's disease, on Sinemet and entacapone 4. CODE STATUS: Undecided; full code for now Charges/Coding Visit Charges Inpatient E&M: 98570 Subs Hosp L2
== END 2021-04-12 10:12 | disposition short-term general hospital (02) | DRG 281 ==
LOC: ED 12:08 → PCU 13:24
PROVIDERS: Internal Medicine Cardiovascular Disease; Admitting Provider Internal Medicine; Emergency Provider Emergency Medicine; PCP Family Medicine; Visit Provider Internal Medicine
DX: T82.595A Other mechanical complication of umbrella device, initial encounter (principal); I21.A1 Myocardial infarction type 2; D68.51 Activated protein C resistance; Y82.8 Other medical devices associated with adverse incidents; G20 Parkinson's disease; Z79.01 Long term (current) use of anticoagulants; Z86.718 Personal history of other venous thrombosis and embolism; Z86.73 Personal history of transient ischemic attack (TIA), and cerebral infarction without residual deficits; Z79.899 Other long term (current) drug therapy
CPT/HCPCS: 36415; 71045; 71260; 80048; 80053; 84484; 85025; 85610; 85730; 93005; 93306; 93458; 94762; 97802; 99285; J7030; Q9967; A4216; C1769; C1894

== ENCOUNTER → 2021-09-07 10:06 | Outpatient (CLI) | payer MEDICARE, OTHER, SELFPAY ==
--- NOTE | 2021-09-07 10:12 | ECHOCS_ITS ---
Reason For Study: Pericardial Effusion Procedure This was a 2D Doppler, Color Flow transthoracic echocardiogram. The study was technically difficult. Contrast injection was performed. Exam performed in department. Left Ventricle Normal LV size. Left ventricular systolic function is normal. The estimated ejection fraction is 60 %. No evidence for diastolic dysfunction. No regional wall motion abnormalities noted. Right Ventricle Normal RV size. Normal systolic function. Atria Normal left atrium. Normal right atrium. No doppler evidence for ASD. Mitral Valve There is no mitral annular calcification. Anterior leaflet diffuse mitral valve thickening. The mitral valve chordae are thickened and/or calcified. Trivial mitral valve insufficiency. Tricuspid Valve Normal tricuspid valve. Trivial tricuspid valve insufficiency. Right ventricular systolic pressure estimated to be 24 mmHg. Aortic Valve Trisinus/trileaflet aortic valve. Mild diffuse aortic valve thickening. Mild focal aortic valve calcification. Trivial aortic valve insufficiency. Pulmonic Valve The pulmonic valve is not well visualized. Mild (1+) pulmonic valve insufficiency. Great Vessels Normal sized aortic root. Pericardium/Pleural No pericardial effusion. Medication Diluted definity 2ml given slow IV push to enhance endocardial definition. MMode/2D Measurements & Calculations LVIDd: 4.6 cm IVSd: 1.1 cm LVOT diam: 2.3 cm LVIDs: 2.8 cm LVPWd: 1.1 cm RVDd: 4.7 cm FS: 38.4 % LVOT area: 4.1 cm2 Ao root diam: 3.4 cm LAV(MOD-bp): 59.9 ml LVAd ap4: 27.7 cm2 LAV(MOD-bp) Indexed: 28.8 ml/m2 LVLd ap4: 8.2 cm LAV(MOD-sp2): 47.5 ml EDV(MOD-sp4): 78.0 ml LAV(MOD-sp4): 53.6 ml EDV(sp4-el): 79.9 ml LVAs ap4: 13.4 cm2 LVLs ap4: 6.2 cm ESV(MOD-sp4): 24.6 ml ESV(sp4-el): 24.7 ml EF(MOD-sp4): 68.4 % EF(sp4-el): 69.0 % SV(MOD-sp4): 53.4 ml SV(sp4-el): 55.2 ml LA A4 area: 20.3 cm2 LA dimension(2D): 3.9 cm RA A4 area: 15.0 cm2 Doppler Measurements & Calculations MV E max raymond: 45.7 cm/sec Lat Peak E' Raymond: 7.9 cm/sec Med Peak E' Raymond: 6.5 cm/sec MV A max raymond: 57.0 cm/sec E/E' lat: 5.8 E/E' med: 7.1 MV E/A: 0.80 Ao V2 max: 112.7 cm/sec LV V1 max: 87.2 cm/sec PA V2 max: 107.9 cm/sec Ao max P.1 mmHg LV V1 max P.0 mmHg Ao V2 mean: 79.9 cm/sec Ao mean P.8 mmHg Ao V2 VTI: 22.5 cm KARISHMA(V,D): 3.2 cm2 PI end-d raymond: 90.5 cm/sec TR max raymond: 227.7 cm/sec TR max P.7 mmHg ECHO/Echo Complete W/ Contrast Interpretation Summary The study was technically difficult. Contrast injection was performed. Left ventricular systolic function is normal. The estimated ejection fraction is 60 %. Anterior leaflet diffuse mitral valve thickening. The mitral valve chordae are thickened and/or calcified. Trivial mitral valve insufficiency. Trivial tricuspid valve insufficiency. Trivial aortic valve insufficiency. Mild (1+) pulmonic valve insufficiency. Right ventricular systolic pressure estimated to be 24 mmHg. No evidence for diastolic dysfunction. Ordering Physician: Joss Pina Referring Physician: Joss Heredia Performed By: Bessy Levy, ROSIBEL, RVT
== END ==
PROVIDERS: PCP Family Medicine; Referring Provider Internal Medicine Cardiovascular Disease; Visit Provider Internal Medicine Cardiovascular Disease
DX: R60.0 Localized edema (principal)
CPT/HCPCS: 93306; Q9957; A4216; C8929

== ENCOUNTER → 2021-09-13 16:28 | Outpatient (CLI) | payer MEDICARE, OTHER, SELFPAY ==
--- NOTE | 2021-09-13 16:33 | RAD_ITS ---
STUDY: X-RAY - LEFT SHOULDER REASON FOR EXAM: Male, 71 years old. CHEST TECHNIQUE: 3 view(s) of the shoulder. COMPARISON: None. FINDINGS: There is moderate degenerative arthrosis of the glenohumeral articulation. Normal acromioclavicular joint. Normal acromion. Normal humeral head and visualized proximal humerus. The soft tissue structures are unremarkable. Normal visualized pulmonary apex. RAD/Shoulder min 2 Views IMPRESSION: 1. No acute fracture or dislocation. 2. Moderate glenohumeral joint arthrosis with a large calcified body. Electronically Signed: Rolf Hernandez MD at 17:16 EST Tel , Service support ,
--- NOTE | 2021-09-13 16:33 | RAD_ITS ---
STUDY: X-RAY - UNILATERAL RIBS ( LEFT ) REASON FOR EXAM: Male, 71 years old. CHEST PAIN TECHNIQUE: 4 view(s) of the ribs. COMPARISON: None. FINDINGS: Normal visualized ribs without a demonstrated fracture. The visualized lung is clear and expanded. RAD/Ribs Unil 2V No CXR IMPRESSION: Normal x-ray examination of the ribs. Electronically Signed: Rolf Hernandez MD at 17:18 EST Tel , Service support ,
--- NOTE | 2021-09-13 16:36 | RAD_ITS ---
STUDY: X-RAY CHEST REASON FOR EXAM: Male, 71 years old. CHEST PAIN TECHNIQUE: PA and lateral views of the chest. COMPARISON: 04/10/2021 FINDINGS: Interval median sternotomy. There is hyperinflation of the lungs consistent with chronic obstructive lung disease (COPD). There is no demonstrated pleural abnormality. Normal size heart. Normal mediastinum and slick. Normal visualized pulmonary arteries. Normal visualized aortic arch and descending thoracic aorta. Normal visualized thoracic spine. Normal visualized ribs, clavicles, and shoulders. There is no demonstrated abnormality of the visualized soft tissue structures of the upper abdomen. RAD/Chest PA and Lateral IMPRESSION: Emphysema without pneumonia or atelectasis. Electronically Signed: Rolf Hernandez MD at 17:14 EST Tel , Service support ,
== END ==
PROVIDERS: PCP Family Medicine; Referring Provider Family Medicine; Visit Provider Family Medicine
DX: R07.9 Chest pain, unspecified (principal); M19.012 Primary osteoarthritis, left shoulder
CPT/HCPCS: 71046; 71100; 73030

== ENCOUNTER 2022-07-20 20:00 | Observation (INO) | payer OTHER, SELFPAY ==
[2022-07-20 20:00] VITALS: BP 135/67; PULSE 75; RESP 18; TEMP 36.6; O2SAT 95; BMI 23.3
--- NOTE | 2022-07-20 20:28 | RAD_ITS ---
STUDY: X-RAY CHEST REASON FOR EXAM: Male, 72 years old. cough TECHNIQUE: Single AP portable view of the chest. COMPARISON: 09/13/2021 FINDINGS: Status post median sternotomy. The lungs are clear and expanded. There is no demonstrated pleural abnormality. Normal size heart. Normal mediastinum and slick. Normal visualized pulmonary arteries. Normal visualized aortic arch and descending thoracic aorta. Normal visualized thoracic spine. Normal visualized ribs, clavicles, and shoulders. There is no demonstrated abnormality of the visualized soft tissue structures of the upper abdomen. RAD/Chest 1 View (Portable) IMPRESSION: No active disease. Electronically Signed: Rolf Hernandez MD at 21:13 EDT ,
--- NOTE | 2022-07-20 20:28 | EKG12_ITS ---
Test Reason : WEAKNESS Blood Pressure : / mmHG Vent. Rate : 068 BPM Atrial Rate : 068 BPM P-R Int : 140 ms QRS Dur : 104 ms QT Int : 350 ms P-R-T Axes : 046 049 035 degrees QTc Int : 372 ms Normal sinus rhythm Normal ECG Confirmed by GIO MATOS, EMIL ([id number]), editor producer KENY FLORES ([id number]) on 07/22/2022 9:21:58 AM Referred By: Confirmed By:EMIL POWERS MD
--- NOTE | 2022-07-20 20:29 | CT_ITS ---
STUDY: CT BRAIN WITHOUT CONTRAST REASON FOR EXAM: Male, 72 years old. ams RADIATION DOSAGE (If Supplied By Facility): CTDIvol = ( 44.99 ) mGy, DLP = ( 880.47 ) mGycm TECHNIQUE: Transaxial CT imaging of the brain was performed without administration of intravenous contrast material. Individualized dose optimization techniques were used for this CT. COMPARISON: 05/21/2019 FINDINGS: Normal soft tissue structures. Normal calvarium. Normal size ventricles and extra-axial spaces for the patient''s age. Normal white matter tracts of the cerebral hemispheres. Normal basal ganglia and thalami. Normal brainstem. Normal cerebellum. There is no intracranial hemorrhage. There are no findings of an acute ischemic infarction. Normal visualized paranasal sinuses. CT/Brain/Head without Contrast IMPRESSION: Normal unenhanced CT scan of the brain. Electronically Signed: Rolf Hernandez MD at 21:18 EDT ,
[2022-07-20] MEDS: 0.9% Normal Saline 1,000 ML 1000 ML IV (20:34)
--- NOTE | 2022-07-20 20:37 | EX.ED.DYSGE1 ---
HPI History of Present Illness Chief Complaint: Weakness Informant: patient Narrative Narrative: This is a 72-year-old male history of Parkinson's disease who is presenting to the emergency department with a chief complaint of weakness and frequent falls. Patient notes that over the past several days he has felt poorly. Unfortunately he uses very vague terminology is not very specific about any of his complaints. He states that his feet just are not moving as well as they should be. He denies any fever nausea vomiting diarrhea. He does note a cough and a bit of a sore throat. This started 2 days ago. He denies any fever or body aches. He denies any changes in urination or bowel movements. He notes pain in the low back which is not new and has been there for more than a week but seems worse with also some radiation to his right leg. [facility] Medical History DVT (deep venous thrombosis) Foreign body in heart Parkinson disease Pericardial effusion Presence of IVC filter Home Medications warfarin 3 mg tablet 1.5 mg PO DAILY blood thinner 04/10/21 [History Last Taken 04/10/21] warfarin 6 mg tablet 6 mg PO DAILY blood thinner 04/10/21 [History Last Taken 04/10/21] entacapone 200 mg tablet (Comtan) 200 mg PO 4X/DAY parkinsons 04/11/21 [History Last Taken Unknown] carbidopa 25 mg-levodopa 100 mg tablet 1 tab PO Q6H parkinsons 03/18/22 [History Last Taken Unknown] Allergy/AdvReac Type Severity Reaction Status Date / Time No Known Allergies Allergy Verified 07/20/22 20:03 Family History Mother , CAD: of a heart attack at approximately age 72 CAD (coronary artery disease) Father No problems noted. Surgical History History of bilateral hip replacements History of heart surgery (~04/12/21) Total knee replacement status Social History household members: spouse Smoking Status: Never smoker alcohol intake: never substance use type: does not use caffeine: No ROS ROS ED Constitutional Constitutional ED: Denies chills or weight loss Eyes Eyes: Denies change in vision or diplopia ENT ENT ED: Denies ear pain, rhinorrhea or sore throat Cardiovascular Cardiovascular: Denies chest pain, orthopnea, palpitations or racing heartbeat Respiratory/Chest Respiratory/Chest: Denies cough, dyspnea or orthopnea Gastrointestinal Gastrointestinal: Denies abdominal pain, diarrhea, nausea or vomiting Genitourinary Genitourinary ED: Denies dysuria, hematuria or urinary frequency Musculoskeletal Musculoskeletal: Reports back pain; Denies arthralgias or myalgias Integumentary Denies abscess or rash Neurologic Neurologic: Reports weakness and other Details: Difficulty walking No altered sensation or loss of muscle strength. ; Denies headache(s) or paresthesias Psychiatric Psychiatric: Denies anxiety, depression, suicidal ideation or suicidal thoughts Endocrine Endocrinology: Denies polydipsia, polyphagia or polyuria Allergic/Immunologic Allergic/Immunologic ED: Denies mouth swelling, tongue swelling or urticaria EXAM Physical Exam Const Vital Signs: 07/20/22 20:00 07/20/22 20:24 07/20/22 22:04 Temperature 97.9 F Temperature Source Temporal Pulse Rate 75 72 Respiratory Rate 18 18 Respiratory Effort Normal Non-Labored Blood Pressure 135/67 H 115/60 Blood Pressure Mean 89 78 Pulse Ox 95 92 Oxygen Delivery Method Room Air Room Air MDM MDM MDM Narrative Medical decision making narrative: Basic lab work is a white count of 4.2 with a hemoglobin of 15. Platelet count is slightly low at 131. Otherwise CMP shows a creatinine 0.98 with a BUN of 26. INR is 1.5. Urinalysis is negative. My interpretation of the chest x-ray is no acute process. CT the brain is negative. His COVID test is positive. In attempting to do orthostatics nursing was unable to get the patient to stand at the bedside for even 1 minute. This was despite his daughter and the nurses trying to help him stand. At this point he is clinically weak to the point where he would benefit from some rehab. I will speak with the hospitalist bringing him into night. Lab Data Attestation: I reviewed the patient's lab results. Labs: Laboratory Results - last 24 hr 07/20/22 07/20/22 07/20/22 20:25 20:25 20:25 WBC 4.2 L RBC 4.50 L Hgb 15.0 Hct 44.4 MCV 98.7 H MCH 33.3 H MCHC 33.8 RDW Std Deviation 46.9 H RDW Coeff of Edwige 12.9 Plt Count 131 L MPV 10.5 Immature Gran % (Auto) 0.500 Neut % (Auto) 81.8 H Lymph % (Auto) 8.6 L Levy % (Auto) 8.9 Eos % (Auto) 0.0 Baso % (Auto) 0.2 Absolute Neuts (auto) 3.4 Absolute Lymphs (auto) 0.36 L Nucleated RBC % 0 Differential Comment SCANNED Diff Path Review January foll PT 17.4 H INR 1.5 APTT 39.4 H Sodium 137 Potassium 4.0 Chloride 106 Carbon Dioxide 25.0 Anion Gap 6 BUN 26 H Creatinine 0.98 Estim Creat Clear Calc 79.22 Est GFR (MDRD) Af Amer 97 Est GFR (MDRD) Non-Af 80 BUN/Creatinine Ratio 26.6 H Glucose 121 H Calcium 8.3 L Total Bilirubin 0.60 AST 21 ALT 8 L Alkaline Phosphatase 66 Troponin I High Sens 8 Total Protein 6.9 Albumin 3.3 Globulin 3.6 Albumin/Globulin Ratio 0.9 Urine Color Urine Clarity Urine pH Ur Specific [place] Urine Protein Urine Glucose (UA) Urine Ketones Urine Occult Blood Urine Nitrite Urine Bilirubin Urine Urobilinogen Ur Leukocyte Esterase Urine RBC Urine WBC Ur Squamous Epith Cells Urine Bacteria Urine Mucus 07/20/22 21:26 WBC RBC Hgb Hct MCV MCH MCHC RDW Std Deviation RDW Coeff of Edwige Plt Count MPV Immature Gran % (Auto) Neut % (Auto) Lymph % (Auto) [place] % (Auto) Eos % (Auto) Baso % (Auto) Absolute Neuts (auto) Absolute Lymphs (auto) Nucleated RBC % Differential Comment Diff Path Review PT INR APTT Sodium Potassium Chloride Carbon Dioxide Anion Gap BUN Creatinine Estim Creat Clear Calc Est GFR (MDRD) Af Amer Est GFR (MDRD) Non-Af BUN/Creatinine Ratio Glucose Calcium Total Bilirubin AST ALT Alkaline Phosphatase Troponin I High Sens Total Protein Albumin Globulin Albumin/Globulin Ratio Urine Color Mohini Urine Clarity Clear Urine pH 5.0 Ur Specific [place] 1.025 Urine Protein 30 H Urine Glucose (UA) Normal Urine Ketones 15 H Urine Occult Blood 10 H Urine Nitrite Negative Urine Bilirubin Negative Urine Urobilinogen 1 H Ur Leukocyte Esterase 25 H Urine RBC 0 SEEN Urine WBC 0-5 SEEN Ur Squamous Epith Cells 0 SEEN Urine Bacteria 0 SEEN Urine Mucus 0 SEEN Radiography Diagnostic Testing: Clinical Impression(s) from Imaging Studies Chest X-Ray 07/20/22 20:28 IMPRESSION: No active disease. Electronically Signed: Rolf Hernandez MD at 21:13 EDT Reading Location ID and State: [id number] / [employer] Tel , Service support , Brain CT 07/20/22 20:29 IMPRESSION: Normal unenhanced CT scan of the brain. Electronically Signed: Rolf Hernandez MD at 21:18 EDT Reading Location ID and State: [id number] / [employer] Tel , Service support , EKG Initial EKG: Attestation: I personally reviewed and interpreted this EKG as follows: Comments: Normal sinus rhythm ventricular rate of 68 bpm Prior EKG tracings: available for review Prior: Unchanged Discharge Plan Dx/Rx/DC Orders Clinical Impression: Weakness, Parkinsons disease, Anticoagulated on Coumadin, COVID-19 Disposition Disposition: Acute Care Hospital [facility]
[2022-07-20 20:44] LABS: Absolute Lymphocyte Count 0.36 X10^3/uL (0.83-4.51); Absolute Neutrophil Count 3.4 X10^3/uL (2.0-7.7); Basophil# 0.01 X10^3/uL; Basophil% 0.2 % (0-1); Hematocrit 44.4 % (40-54); Lymphocyte # 0.36 X10^3/ul (0.83-4.51); Lymphocyte % 8.6 % (19-41); Mean Corp Hgb Conc 33.8 g/dL (32-36); Mean Corpuscular Hgb 33.3 pg (27.0-32.0); Mean Corpuscular Volume 98.7 fL (80-94); Mean Platelet Vol. 10.5 fl (6.2-12.0); Monocyte# 0.37 X10^3/uL; Monocyte% 8.9 % (0-10); NRBC Flagged by Analyzer 0 % (0-5); Neutrophil # 3.42 X10^3/uL (2.7-7.7); Neutrophil % 81.8 % (47-70); POSITIVE DIFFERENTIAL YES; Platelet Count 131 K/mm3 (150-450); RBC Distribution Width CV 12.9 % (11.6-14.6); RBC Distribution Width SD 46.9 fl (35.1-43.9); White Blood Count 4.2 K/mm3 (4.4-11.0)
[2022-07-20 20:50] LABS: Differential Indicated SCAN CRITERIA MET
[2022-07-20 20:58] LABS: ALB/GLOB Ratio 0.9 RATIO (0.9-2.4); AST(SGOT) 21 U/L (15-37); Alanine Aminotransfer ALT/SGPT 8 U/L (16-61); Albumin, Serum 3.3 g/dL (3.2-5.0); Alkaline Phosphatase 66 U/L (45-117); Anion Gap 6 (5-15); BUN 26 mg/dL (7-18); BUN/Creat Ratio 26.6 RATIO (10-20); Calcium,Total 8.3 mg/dL (8.5-10.1); Chloride 106 mmol/L (98-107); Creatinine, Serum 0.98 mg/dL (0.70-1.30); EST Glomerular Filtration Rate 80 mL/min (>60); Est Glom Filt Rate - Afr Amer 97 mL/min (>60); Estimated Creatinine Clearance 79.22 ml/min; Globulin 3.6 g/dL (2.2-4.2); Glucose 121 mg/dL (74-106); International Normalized Ratio 1.5; Partial Thromboplast Time 39.4 Seconds (24.1-36.2); Protein, Total 6.9 g/dL (6.4-8.2); Prothrombin Time (Protime)PT. 17.4 SECONDS (11.7-14.9); Sodium Level 137 mmol/L (136-145); Troponin-I HS 8 pg/mL (3.0-78.0)
[2022-07-20 21:25] LABS: Differential Comment SCANNED
[2022-07-20 21:31] LABS: Bacteria 0 SEEN /hpf (None Seen); Mucous, Urine 0 SEEN /hpf (<or=2+); Red Blood Cells-Urine 0 SEEN /hpf (0-5); Squamous Epithelial Cells - UA 0 SEEN /hpf (0-5)
[2022-07-20 21:36] LABS: Color, Urine Amber (Yellow); Glucose, Dipstick Normal (Normal); Ketone-Dipstick 15 mg/dl (Negative); Leukocyte Esterase-Dipstick 25 /ul (Negative); Nitrite-Dipstick Negative (Negative); Occult Blood-Urine 10 /ul (Negative); Protein-Dipstick 30 mg/dl (Negative); Specific Gravity, Urine 1.025 (1.002-1.030); Urine Bilirubin Dipstick Negative (Negative); Urine Clarity Clear (Clear); Urine Urobilinogen 1 mg/dl (Normal)
[2022-07-20 21:43] LABS: White Blood Cells 0-5 SEEN /hpf (0-5)
[2022-07-20 22:04] VITALS: BP 115/60; PULSE 72; RESP 18; O2SAT 92
--- NOTE | 2022-07-20 22:39 | ED.RN ---
THIS RN TALKED TO PT'S DAUGHTER PRIOR TO HER LEAVING ER. PT'S DAUGHTER STATED SHE WOULD LIKE AN UPDATE IN THE MORNING ABOUT PT CONDITION AND ROOM NUMBER/UNIT. PT'S DAUGHTER'S NAME IS ROSA ALEXANDRA AND PHONE NUMBER IS [phone].
--- NOTE | 2022-07-20 23:03 | HP.PCM.HOS_ITS ---
HPI - General General Date of Service: 07/20/22 Chief Complaint: weakness and falls. HPI Narrative GERARDO FANG, is a 72 M who presents with illness for past 3 days. In the interim, he has been more weak and falling. Family is unable to care for him. Work up in ED showed that patient has COVID 19. The patient has been vaccinated for COVID 19, but yet to receive a booster. [facility] Medical History DVT (deep venous thrombosis) Foreign body in heart Parkinson disease Pericardial effusion Presence of IVC filter Home Medications warfarin 3 mg tablet 1.5 mg PO DAILY blood thinner 04/10/21 [History Last Taken 04/10/21] warfarin 6 mg tablet 6 mg PO DAILY blood thinner 04/10/21 [History Last Taken 04/10/21] entacapone 200 mg tablet (Comtan) 200 mg PO 4X/DAY parkinsons 04/11/21 [History Last Taken Unknown] carbidopa 25 mg-levodopa 100 mg tablet 1 tab PO Q6H parkinsons 03/18/22 [History Last Taken Unknown] Allergy/AdvReac Type Severity Reaction Status Date / Time No Known Allergies Allergy Verified 07/20/22 20:03 Family History Mother , CAD: of a heart attack at approximately age 72 CAD (coronary artery disease) Father No problems noted. Surgical History History of bilateral hip replacements History of heart surgery (~04/12/21) Total knee replacement status Social History household members: spouse Smoking Status: Never smoker alcohol intake: never substance use type: does not use caffeine: No ROS ROS Narrative +chills. + sore throat. All review of systems were negative except as mentioned above in the history of present illness and the other review of systems. Vital Signs Vital Signs Vital Signs: 07/20/22 20:00 07/20/22 20:24 07/20/22 22:04 Temperature 36.6 C Temperature Source Temporal Pulse Rate 75 72 Respiratory Rate 18 18 Respiratory Effort Normal Non-Labored Blood Pressure 135/67 H 115/60 Blood Pressure Mean 89 78 Pulse Ox 95 92 Oxygen Delivery Method Room Air Room Air Weight Weight: 82.554 kg Body Mass Index (BMI) 23.3 Physical Exam Const alert and no apparent distress Constitutional Narrative: weak. coherent. HEENT normocephalic, head/scalp atraumatic, hearing grossly normal bilaterally and moist oral mucous membranes Resp normal respiratory effort, no retractions, no use of accessory muscles and clear to auscultation bilaterally Cardio regular rate, regular rhythm, S1 normal heart sound and S2 normal heart sound GI normal to inspection, nondistended, normoactive bowel sounds, soft to palpation and non-tender Extremity normal to inspection Neuro oriented x3 Sensorium / Orientation: awake and alert Psych Psych Narrative: flat affect. Results Lab / Micro Data Result Diagrams: 07/20/22 20:25 07/20/22 20:25 Labs: Laboratory Results - last 24 hr 07/20/22 20:25: WBC 4.2 L, RBC 4.50 L, Hgb 15.0, Hct 44.4, MCV 98.7 H, MCH 33.3 H, MCHC 33.8, RDW Std Deviation 46.9 H, RDW Coeff of Edwige 12.9, Plt Count 131 L, MPV 10.5, Immature Gran % (Auto) 0.500, Neut % (Auto) 81.8 H, Lymph % (Auto) 8.6 L, [place] % (Auto) 8.9, Eos % (Auto) 0.0, Baso % (Auto) 0.2, Absolute Neuts (auto) 3.4, Absolute Lymphs (auto) 0.36 L, Nucleated RBC % 0, Differential Comment SCANNED, Diff Path Review January07/20/22 20:25: PT 17.4 H, INR 1.5, APTT 39.4 H 07/20/22 20:25: Sodium 137, Potassium 4.0, Chloride 106, Carbon Dioxide 25.0, Anion Gap 6, BUN 26 H, Creatinine 0.98, Estim Creat Clear Calc 79.22, Est GFR (MDRD) Af Amer 97, Est GFR (MDRD) Non-Af 80, BUN/Creatinine Ratio 26.6 H, Glucose 121 H, Calcium 8.3 L, Total Bilirubin 0.60, AST 21, ALT 8 L, Alkaline Phosphatase 66, Troponin I High Sens 8, Total Protein 6.9, Albumin 3.3, Globulin 3.6, Albumin/Globulin Ratio 0.9 07/20/22 21:26: Urine Color Mohini, Urine Clarity Clear, Urine pH 5.0, Ur Specific [place] 1.025, Urine Protein 30 H, Urine Glucose (UA) Normal, Urine Ketones 15 H, Urine Occult Blood 10 H, Urine Nitrite Negative, Urine Bilirubin Negative, Urine Urobilinogen 1 H, Ur Leukocyte Esterase 25 H, Urine RBC 0 SEEN, Urine WBC 0-5 SEEN, Ur Squamous Epith Cells 0 SEEN, Urine Bacteria 0 SEEN, Urine Mucus 0 SEEN Micro: Microbiology 07/20/22 20:35 Nasal Secretion SARS-CoV-2 Antigen (Rapid) - Final SARS-CoV-2 (COVID 19) Radiology Impression Chest X-Ray 07/20/22 20:28 IMPRESSION: No active disease. Electronically Signed: Rlof Hernandez MD at 21:13 EDT Reading Location ID and State: [id number] / [email or web address] Tel , Service support , Brain CT 07/20/22 20:29 IMPRESSION: Normal unenhanced CT scan of the brain. Electronically Signed: Rolf Hernandez MD at 21:18 EDT Reading Location ID and State: [id number] / [email or web address] Tel , Service support , Assessment & Plan Assessment/Plan (1) Debility: PLAN: 2/2 underlying Parkinson's disease and COVID 19. Family unable to care for him given his degree of debility. PT OT CM to assist with possible DC to SNF (2) COVID-19: PLAN: Vaccinated, but not boosted. HDS. Not hypoxic. No treatment at this time. PLAN: Plan Chronic conditions: * Parkinson's disease: continue w carbidopa/levodopa * h/o VTE: continue warfarin Code status: DW pt: Full Code. DW pt's family member at bedside. Charges/Coding Visit Charges OBSV E&M: 01240 Initial observation care L2
[2022-07-20 23:15] VITALS: BP 124/74; PULSE 61; RESP 20; TEMP 37.9; O2SAT 93
--- NOTE | 2022-07-20 23:26 | ED.RN ---
DAUGHTER NOTIFIED OF ROOM NUMBER AND UNIT. DAUGHTER ASKS THAT ANY QUESTIONS ABOUT HOME MEDICATIONS BE DIRECTED TOWARDS HER AT HER CELL PHONE NUMBER LISTED IN PREVIOUS NOTE BY THIS RN.
[2022-07-20 23:52] VITALS: BMI 22.6
[2022-07-20 23:58] VITALS: BP 142/77; PULSE 67; RESP 20; TEMP 37.2; O2SAT 95
[2022-07-21] VITALS (9 sets, daily range): BP systolic 98–145; BP diastolic 55–77; PULSE 57–70; RESP 16–20; TEMP 36.6–37.2; O2SAT 94–95
[2022-07-21 06:42] LABS: International Normalized Ratio 1.5; Prothrombin Time (Protime)PT. 17.3 SECONDS (11.7-14.9)
[2022-07-21] MEDS: Ensure Plus High Protein 120 ML LIQUID PO (10:50)
[2022-07-21] MEDS: Carbidopa/Levodopa 25/100 Tablet PO ×4 (10:50→21:13)
--- NOTE | 2022-07-21 12:15 | PCM.PN.HOSP ---
Subjective Subjective Follow-up on generalized weakness/recurrent falls/acute COVID-19 infection: Patient was seen and examined. He admits to feeling weak. He remains off oxygen. Denies any dizziness or palpitations. No diarrhea Objective Data Objective Data Vital Signs: Vital Signs Temp Pulse Resp BP Pulse Ox O2 Del Method 97.8 F 60 18 106/55 L 94 Room Air 07/21/22 10:00 07/21/22 10:00 07/21/22 10:00 07/21/22 10:00 07/21/22 10:00 07/21/22 10:00 Oxygen Delivery Method Room Air Weight: 80.15 kg Body Mass Index (BMI) 22.6 Intake & Output: Intake and Output for Last 24 Hours 07/19/22 07/20/22 07/21/22 23:59 23:59 23:59 Intake Total 1000 / 1050 50 / 50 Output Total 350 / 350 Balance 1000 / 1050 -300 / -300 Lab / Micro Data Result Diagrams: 07/20/22 20:25 07/20/22 20:25 Labs: Laboratory Results - last 24 hr 07/20/22 20:25: WBC 4.2 L, RBC 4.50 L, Hgb 15.0, Hct 44.4, MCV 98.7 H, MCH 33.3 H, MCHC 33.8, RDW Std Deviation 46.9 H, RDW Coeff of Edwige 12.9, Plt Count 131 L, MPV 10.5, Immature Gran % (Auto) 0.500, Neut % (Auto) 81.8 H, Lymph % (Auto) 8.6 L, [place] % (Auto) 8.9, Eos % (Auto) 0.0, Baso % (Auto) 0.2, Absolute Neuts (auto) 3.4, Absolute Lymphs (auto) 0.36 L, Nucleated RBC % 0, Differential Comment SCANNED, Diff Path Review January07/20/22 20:25: PT 17.4 H, INR 1.5, APTT 39.4 H 07/20/22 20:25: Sodium 137, Potassium 4.0, Chloride 106, Carbon Dioxide 25.0, Anion Gap 6, BUN 26 H, Creatinine 0.98, Estim Creat Clear Calc 79.22, Est GFR (MDRD) Af Amer 97, Est GFR (MDRD) Non-Af 80, BUN/Creatinine Ratio 26.6 H, Glucose 121 H, Calcium 8.3 L, Total Bilirubin 0.60, AST 21, ALT 8 L, Alkaline Phosphatase 66, Troponin I High Sens 8, Total Protein 6.9, Albumin 3.3, Globulin 3.6, Albumin/Globulin Ratio 0.9 07/20/22 21:26: Urine Color Mohini, Urine Clarity Clear, Urine pH 5.0, Ur Specific [place] 1.025, Urine Protein 30 H, Urine Glucose (UA) Normal, Urine Ketones 15 H, Urine Occult Blood 10 H, Urine Nitrite Negative, Urine Bilirubin Negative, Urine Urobilinogen 1 H, Ur Leukocyte Esterase 25 H, Urine RBC 0 SEEN, Urine WBC 0-5 SEEN, Ur Squamous Epith Cells 0 SEEN, Urine Bacteria 0 SEEN, Urine Mucus 0 SEEN 07/21/22 06:10: PT 17.3 H, INR 1.5 Micro: Microbiology 07/20/22 20:35 Nasal Secretion SARS-CoV-2 Antigen (Rapid) - Final SARS-CoV-2 (COVID 19) Radiography Diagnostic Testing: Radiology Impression Chest X-Ray 07/20/22 20:28 IMPRESSION: No active disease. Electronically Signed: Rolf Hernandez MD at 21:13 EDT Reading Location ID and State: [id number] / [email or web address] Tel , Service support , Brain CT 07/20/22 20:29 IMPRESSION: Normal unenhanced CT scan of the brain. Electronically Signed: Rolf Hernandez MD at 21:18 EDT , Physical Exam Narrative Physical exam: General: Alert, Oriented x3, Cooperative, appears very frail HEENT: Atraumatic Oral: Moist Mucosa Neck: Supple Lungs: Diminished to auscultation Cardiovascular: HS I+II, regular, no murmurs Abdomen: Bowel Sounds Present, Soft, Non Tender Extremities: No edema Skin: No rashes, No breakdown Neurological: Grossly intact Psych/Mental Status: Appropriate Assessment & Plan Assessment/Plan (1) Debility: (2) COVID-19: PLAN: Plan 1. Debility, acute on chronic secondary to patient's acute COVID-19 infection PT and OT to evaluate and treat Social work/case management consult for discharge planning -family unable to take care of him 2. Acute COVID-19 infection, not on oxygen We will continue to monitor Encourage use of incentive spirometer 3. Parkinson's disease, continue on carbidopa-levodopa, entacapone 4. History of VTE, INR is subtherapeutic, currently on Coumadin 5. DVT - PPx as above Charges/Coding Visit Charges Inpatient E&M: 60121 Subs Hosp L2
[2022-07-22] VITALS (11 sets, daily range): BP systolic 98–133; BP diastolic 50–70; PULSE 48–71; RESP 16–18; TEMP 36.4–36.8; O2SAT 94–97
[2022-07-22 07:02] LABS: International Normalized Ratio 1.4; Prothrombin Time (Protime)PT. 16.5 SECONDS (11.7-14.9)
[2022-07-22 07:06] LABS: Absolute Lymphocyte Count 1.38 X10^3/uL (0.83-4.51); Absolute Neutrophil Count 1.5 X10^3/uL (2.0-7.7); Eosinophil# 0.03 X10^3/uL; Eosinophils% 0.9 % (0-5); Hemoglobin 15.2 g/dL (13.0-16.5); Lymphocyte # 1.38 X10^3/ul (0.83-4.51); Lymphocyte % 42.5 % (19-41); Mean Corp Hgb Conc 33.8 g/dL (32-36); Mean Corpuscular Hgb 33.7 pg (27.0-32.0); Mean Corpuscular Volume 99.8 fL (80-94); Mean Platelet Vol. 10.8 fl (6.2-12.0); Monocyte# 0.31 X10^3/uL; Monocyte% 9.5 % (0-10); NRBC Flagged by Analyzer 0 % (0-5); Neutrophil # 1.52 X10^3/uL (2.7-7.7); Neutrophil % 46.8 % (47-70); Platelet Count 125 K/mm3 (150-450); RBC Distribution Width CV 12.8 % (11.6-14.6); RBC Distribution Width SD 47.3 fl (35.1-43.9); Red Blood Count 4.51 M/mm3 (4.6-6.2); White Blood Count 3.3 K/mm3 (4.4-11.0)
[2022-07-22 07:07] LABS: ALB/GLOB Ratio 0.8 RATIO (0.9-2.4); AST(SGOT) 23 U/L (15-37); Alanine Aminotransfer ALT/SGPT 12 U/L (16-61); Albumin, Serum 2.7 g/dL (3.2-5.0); Alkaline Phosphatase 58 U/L (45-117); Anion Gap 3 (5-15); BUN 17 mg/dL (7-18); BUN/Creat Ratio 23.2 RATIO (10-20); Calcium,Total 8.5 mg/dL (8.5-10.1); Chloride 107 mmol/L (98-107); Creatinine, Serum 0.73 mg/dL (0.70-1.30); EST Glomerular Filtration Rate 112 mL/min (>60); Est Glom Filt Rate - Afr Amer 135 mL/min (>60); Globulin 3.6 g/dL (2.2-4.2); Glucose 91 mg/dL (74-106); Potassium 4.3 mmol/L (3.5-5.1); Protein, Total 6.3 g/dL (6.4-8.2); Sodium Level 140 mmol/L (136-145)
[2022-07-22] MEDS: Ensure Plus High Protein 120 ML LIQUID PO ×2 (09:59→18:28)
[2022-07-22] MEDS: Carbidopa/Levodopa 25/100 Tablet PO ×4 (09:59→21:56)
--- NOTE | 2022-07-22 10:13 | PN.HOSP_ITS ---
Subjective Subjective DOS 07/22/22 CC: f/u COVID Pt reports feeling generally unwell today. Breathing roughly the same with slight productive cough. Not hypoxic and does not require O2. Was pull up on and reports it has leaked several times which upsets him. Eating well. Objective Data Objective Data Vital Signs: Vital Signs Temp Pulse Resp BP Pulse Ox O2 Del Method 97.5 F L 60 16 98/55 L 94 Room Air 07/22/22 09:57 07/22/22 09:57 07/22/22 09:57 07/22/22 09:57 07/22/22 09:57 07/22/22 09:57 Oxygen Delivery Method Room Air Weight: 80.15 kg Body Mass Index (BMI) 22.6 Intake & Output: Intake and Output for Last 24 Hours 07/20/22 07/21/22 07/22/22 23:59 23:59 23:59 Intake Total 1000 / 1050 700 / 800 250 / 250 Output Total 350 / 350 800 / 800 Balance 1000 / 1050 350 / 450 -550 / -550 Lab / Micro Data Result Diagrams: 07/22/22 06:14 07/22/22 06:14 Labs: Laboratory Results - last 24 hr 07/22/22 06:14: PT 16.5 H, INR 1.4 07/22/22 06:14: WBC 3.3 L, RBC 4.51 L, Hgb 15.2, Hct 45.0, MCV 99.8 H, MCH 33.7 H, MCHC 33.8, RDW Std Deviation 47.3 H, RDW Coeff of Edwige 12.8, Plt Count 125 L, MPV 10.8, Immature Gran % (Auto) 0.300, Neut % (Auto) 46.8 L, Lymph % (Auto) 42.5 H, [place] % (Auto) 9.5, Eos % (Auto) 0.9, Baso % (Auto) 0.0, Absolute Neuts (auto) 1.5 L, Absolute Lymphs (auto) 1.38, Nucleated RBC % 0 07/22/22 06:14: Sodium 140, Potassium 4.3, Chloride 107, Carbon Dioxide 30.0, Anion Gap 3 L, BUN 17, Creatinine 0.73, Estim Creat Clear Calc 75.70, Est GFR (MDRD) Af Amer 135, Est GFR (MDRD) Non-Af 112, BUN/Creatinine Ratio 23.2 H, Glucose 91, Calcium 8.5, Total Bilirubin 0.50, AST 23, ALT 12 L, Alkaline Phosphatase 58, Total Protein 6.3 L, Albumin 2.7 L, Globulin 3.6, Albumin/Globulin Ratio 0.8 L Micro: Microbiology 07/20/22 20:35 Nasal Secretion SARS-CoV-2 Antigen (Rapid) - Final SARS-CoV-2 (COVID 19) Physical Exam Const alert and no apparent distress HEENT normocephalic and head/scalp atraumatic Eyes Eyes Narrative: EOM grossly intact, anicteric Neck supple Resp normal respiratory effort and clear to auscultation bilaterally Cardio regular rate and regular rhythm GI soft to palpation, non-tender and non-distended Extremity Extremity Narrative: No edema appreciated Neuro moves all extremities Neuro Narrative: No overt focal deficits appreciated Psych Psych Narrative: Cooperative Assessment & Plan Assessment/Plan (1) Debility: (2) COVID-19: PLAN: Plan 1. Debility, acute on chronic secondary to patient's acute COVID-19 infection PT and OT to evaluate and treat will pursue placement Social work/case management consult for discharge planning -family unable to take care of him 2. Acute COVID-19 infection, not on oxygen We will continue to monitor Encourage use of incentive spirometer 3. Parkinson's disease, continue on carbidopa-levodopa, entacapone. Wide variabilty in BP likely given to autonomic dysfunction d/t parkinson's 4. History of VTE, INR is subtherapeutic, currently on Coumadin 5. DVT - PPx as above, add SCDs Charges/Coding Visit Charges OBSV E&M: 29951 Subsequent observation care L2
--- NOTE | 2022-07-22 10:44 | CASEMGMT ---
Discharge Oil Burner Repairer This service writer called Rachele at [facility]. [facility] is accepting covid on a base by base case. [facility] will review. This service writer sent referral to [facility] via [facility]. Marlo DICKINSON Car Examiner
--- NOTE | 2022-07-22 11:01 | CASEMGMT ---
Addendum entered by Mohiin Gonzales 07/22/22 11:55: Per conversation with Pt earlier best contact is pt's daughter, Vannessa, who has been taking the larger part of pt's care on while is sick. This SW called pt daughter to inform of discussion with [facility]. SW listed SNF options given by [place] to daughter Vannessa and Vannessa also agreeable to [facility] for pt to discharge to when accepted. Vannessa reported would call pt's , Mary, to give update on plan for pt discharge. Discussed transport upon discharge and Vannessa stated would like fo rpt to go via [facility]. Vannessa stated attempting to limit contact with covid as Curt son had recent kidney transplant is highly susceptible to infections. MEGAN Bone Original Note: Social Work SW called pt , Mary, to discuss situation after seeing Discharge planning consult and notes indicating family unable to care for pt at home currently. Mary explained that pt has Parkinson's and has been incontinent of the bladder. Mary also stated pt has covid and has been weak and unable to walk for several days. Mary also has covid and unable to care for pt while pt is unable to walk on own. Pt's recommending SNF for short term rehab. SW discussed with Mary the options available for nursing homes that take Covid + pts. Mary reported pt is [facility] service connected and the SNF placement will need to go through [place]. Mary declined SNF list as options were limited to [facility] facilities and ones open to covid pts. SW shared facilities recently open to accepting covid pt's were [facility], [facility], and [facility]. Mary reports family open to whatever facility will take pt short term for rehab as long as it is close to home for the family and covered through [place]. DANIAL called [facility]. Yuan confirmed pt is [facility] service contracted and provided list of options for pt to go to under VA coverage. [facility] was an option listed. SW notified Zita Araiza, Discharge civil engineering assistant of SNF option. Zita to send referral. PLAN: Await acceptance from [facility] and approval from [facility]. MEGAN Bone
[2022-07-22 11:54] LABS: Pathologist Review Reviewed
--- NOTE | 2022-07-22 12:56 | CASEMGMT ---
Discharge Senior Scheduler This food writer called Maci over at TCU. This food writer explained to Maci about patient. Maci stated that patient would need two negative test 24hours apart for TCU. Marlo DICKINSON Welding Foreman
--- NOTE | 2022-07-22 13:47 | CASEMGMT ---
Discharge Software Quality Tester MELINA reached out. Patient has been accepted. DANIAL Rajan notified. Marlo DICKINSON Pickers Material Handlers
--- NOTE | 2022-07-22 13:59 | CASEMGMT ---
Social Work Called Yuan at [facility] for list of more SNFs. informed Yuan that [facility] informed that there is no VA contract with them. Yuan explained [facility] does have contract for skilled with [facility] and to have the SNF check under [facility]. Pt will be covered 100% under VA benefits. Yuan shared pt could go under medicare if willing to pay the copay after 21 days. DANIAL contacted Madelyn at [facility] and informed of this info. Madelyn stated would check with Admission coordinatorRachele and return call as soon as possible on VA contract. MEGAN Bone
--- NOTE | 2022-07-22 14:02 | CASEMGMT ---
Social Work SW verified AD with pt's , Mary. Mary reported Pt's HCPOA is daughter Vannessa Delgadillo. made aware the documents are not on file with [facility]. Mary stated would have daughter bring copy if possible. Mohini Gonzales, INTERNATIONAL BANK MANAGER
--- NOTE | 2022-07-22 15:11 | TREXTCAR_ITS ---
Diet Diet Order/Speech Therapy: 07/20/22 23:52 Diet: Regular - General Food consistency:: Regular Liquid Consistency:: Regular/Thin Routine Orders/Code Status Suppository Type: Dulcolax 10mg Suppository Frequency: Daily PRN O2 Frequency: PRN Keep PO Greater than or Equal to (%): 92 Routine Lab Work: INR (In AM- will need to monitor and adjust coumadin accor dingly) Wound(s) rt foot: Wound Type: open area under great and 2nd toes Therapies Physical Therapy: Eval and Treat Occupational Therapy: Eval and Treat Speech Therapy: Eval and Treat Problem/Diagnosis (1) Debility: Status: Acute Code(s): R53.81 - Other malaise (2) COVID-19: Status: Acute Code(s): U07.1 - COVID-19 Plan 1. Debility, acute on chronic secondary to patient's acute COVID-19 infection 2. Acute COVID-19 infection, not on oxygen 3. Parkinson's disease 4. History of VTE Mr. Gill is a 72-year-old male with a history of DVT on Coumadin and Parkinson's disease who presented to [facility] 07/20/2022 with generalized weakness, falls, and feeling ill for 3 days. He was positive for COVID-19, was vaccinated but has not been boosted. He was monitored but was not hypoxic and did not require any treatment for COVID. He was deemed that he would benefit from fpc facility. Did have subtherapeutic INR, unclear adherence and diet prior to admission. Given needs to be discharged to fpc facility today recommend repeat INR in the morning on current dose, if still not improving may need to increase dose. Allergies/Procedures Done in Hospital Allergies No Known Allergies Allergy (Verified 07/20/22 20:03) Type of Care/Length of Stay Estimated LOS: Convalescent Care Less Than 30 days Type of Care Needed: Skilled Rehab Potential: Fair Prognosis: Fair Additional Orders/Day of Discharge Day of Discharge: 07/22/22 Dietary and Speech Recommendations Dietitian Recommendations/Changes: Continue with liberalized Regular - General diet as well as Ensure Plus High Protein 120mL 4x/day with medpass to help increase oral intakes. Will reassess oral intakes and tolerance upon f/u. Discharge Plan Admission Admit Date/Time: 07/20/22 22:51 Primary Reason for Your Visit: Weakness, COVID-19 Attending Provider: Yecenia Cooper Primary Care Provider: Joss Heredia Consulting Providers: Flako Simeon ; Liss Hamilton Instructions Patient Instructions: Coronavirus Disease 2019 (COVID-19): Overview, Coronavirus Disease 2019 (COVID-19): Caring for Yourself or Others Additional Instructions / Restrictions: ? Your INR was noted to be low, this will need to be monitored. You are on Coumadin 7.5 mg daily and this may need adjusted further. INR in the morning recommended ?Continue other home medications ? Recommend to continue Ensure Plus high-protein -Please call your primary care provider's office upon discharge to schedule a hospital follow up within 1 week. -For any concerning signs or symptoms please call 911 or proceed to the nearest emergency department Discharge Orders/Prescriptions Prescriptions: New Ensure Plus High Protein 0.08 gram-1.5 kcal/mL Liquid 120 ml PO TIDCM 30 Days Qty: 100 0RF Continued warfarin 3 mg tablet 1.5 mg PO DAILY Label Comments: Take 1 tablet by mouth daily warfarin 6 mg tablet 6 mg PO DAILY Label Comments: Take 1 tablet by mouth daily WITH 3MG TAB TO EQUAL 9MG entacapone [Comtan] 200 mg Tablet 200 mg PO 4X/DAY Rx Instructions: take 4x/day with levodopa/carbidopa carbidopa-levodopa 25-100 mg tablet 1 tab PO Q6H Label Comments: take 2 tablets by mouth five times a day AT 4:30-5AM, 9AM, 1PM, 5-6PM, AND MIDNIGHT Referrals / Follow Up: Joss Heredia MD [Primary Care Provider] - Disposition Disposition (needs filled in before D/C Order can be placed): Detention Facility
--- NOTE | 2022-07-22 15:22 | CASEMGMT ---
ARLINE ROLON made tc to discuss REEVES form with patient. ARLINE ROLON explained REEVES form, patient voiced understanding. Received verbal consent for signature on form and filed in chart. Witnessed by second person. Pt provided with a copy of signed REEVES form. Patient had no further questions or concerns at this time.
--- NOTE | 2022-07-22 15:23 | PCM.DC.SUM ---
Providers Date of Admission: 07/20/22 Date of Discharge: 07/22/22 Primary Care Physician: Dr. Joss Heredia MD Reason For Visit: DEBILITY, COVID 19 Diagnosis Discharge Diagnosis (1) Debility: Status: Acute Code(s): R53.81 - Other malaise (2) COVID-19: Status: Acute Code(s): U07.1 - COVID-19 Plan 1. Debility, acute on chronic secondary to patient's acute COVID-19 infection 2. Acute COVID-19 infection, not on oxygen 3. Parkinson's disease 4. History of VTE Medications at Discharge Home Medications warfarin 3 mg tablet 1.5 mg PO DAILY blood thinner 04/10/21 warfarin 6 mg tablet 6 mg PO DAILY blood thinner 04/10/21 entacapone 200 mg tablet (Comtan) 200 mg PO 4X/DAY parkinsons 04/11/21 carbidopa 25 mg-levodopa 100 mg tablet 1 tab PO Q6H parkinsons 03/18/22 food supplemt, lactose-reduced 0.08 gram-1.5 kcal/mL oral liquid (Ensure Plus High Protein) 120 ml PO TIDCM 30 days #100 mL 07/22/22 Hospital Course Summary of Care Provided Minutes Spent on Discharge: 25 Hospital Course: Mr. Gill is a 72-year-old male with a history of DVT on Coumadin and Parkinson's disease who presented to [facility] 07/20/2022 with generalized weakness, falls, and feeling ill for 3 days.? He was positive for COVID-19, was vaccinated but has not been boosted.? He was monitored but was not hypoxic and did not require any treatment for COVID.? He was deemed that he would benefit from prison facility.? Did have subtherapeutic INR, unclear adherence and diet prior to admission.? Given needs to be discharged to prison facility today recommend repeat INR in the morning on current dose, if still not improving may need to increase dose. Physical Exam Const alert and no apparent distress HEENT normocephalic and head/scalp atraumatic Eyes Eyes Narrative: EOM grossly intact, anicteric Neck supple Resp normal respiratory effort and clear to auscultation bilaterally Cardio regular rate and regular rhythm GI soft to palpation, non-tender and non-distended Extremity Extremity Narrative: No edema appreciated Neuro moves all extremities Neuro Narrative: No overt focal deficits appreciated Psych Psych Narrative: Cooperative Weight / BMI Weight Weight: 80.15 kg Body Mass Index (BMI) 22.6 ABG / Lab / Microbiology Data Result Diagrams: 07/22/22 06:14 07/22/22 06:14 Laboratory: Laboratory Results - last 24 hr 07/20/22 20:25: Diff Path Review Reviewed 07/22/22 06:14: PT 16.5 H, INR 1.4 07/22/22 06:14: WBC 3.3 L, RBC 4.51 L, Hgb 15.2, Hct 45.0, MCV 99.8 H, MCH 33.7 H, MCHC 33.8, RDW Std Deviation 47.3 H, RDW Coeff of Edwige 12.8, Plt Count 125 L, MPV 10.8, Immature Gran % (Auto) 0.300, Neut % (Auto) 46.8 L, Lymph % (Auto) 42.5 H, [place] % (Auto) 9.5, Eos % (Auto) 0.9, Baso % (Auto) 0.0, Absolute Neuts (auto) 1.5 L, Absolute Lymphs (auto) 1.38, Nucleated RBC % 0 07/22/22 06:14: Sodium 140, Potassium 4.3, Chloride 107, Carbon Dioxide 30.0, Anion Gap 3 L, BUN 17, Creatinine 0.73, Estim Creat Clear Calc 75.70, Est GFR (MDRD) Af Amer 135, Est GFR (MDRD) Non-Af 112, BUN/Creatinine Ratio 23.2 H, Glucose 91, Calcium 8.5, Total Bilirubin 0.50, AST 23, ALT 12 L, Alkaline Phosphatase 58, Total Protein 6.3 L, Albumin 2.7 L, Globulin 3.6, Albumin/Globulin Ratio 0.8 L Microbiology: Microbiology 07/20/22 20:35 Nasal Secretion SARS-CoV-2 Antigen (Rapid) - Final SARS-CoV-2 (COVID 19) Meaningful Use Info Meaningful Use Diagnoses (Choose all that apply): None applicable Discharge Plan Admission Admit Date/Time: 07/20/22 22:51 Primary Reason for Your Visit: Weakness, COVID-19 Attending Provider: Yecenia Cooper Primary Care Provider: Joss Heredia Consulting Providers: Flako Simeon ; Liss Hamilton Instructions Patient Instructions: Coronavirus Disease 2019 (COVID-19): Overview, Coronavirus Disease 2019 (COVID-19): Caring for Yourself or Others Additional Instructions / Restrictions: ? Your INR was noted to be low, this will need to be monitored. You are on Coumadin 7.5 mg daily and this may need adjusted further. INR in the morning recommended ?Continue other home medications ? Recommend to continue Ensure Plus high-protein -Please call your primary care provider's office upon discharge to schedule a hospital follow up within 1 week. -For any concerning signs or symptoms please call 911 or proceed to the nearest emergency department Discharge Orders/Prescriptions Prescriptions: New Ensure Plus High Protein 0.08 gram-1.5 kcal/mL Liquid 120 ml PO TIDCM 30 Days Qty: 100 0RF Continued warfarin 3 mg tablet 1.5 mg PO DAILY Label Comments: Take 1 tablet by mouth daily warfarin 6 mg tablet 6 mg PO DAILY Label Comments: Take 1 tablet by mouth daily WITH 3MG TAB TO EQUAL 9MG entacapone [Comtan] 200 mg Tablet 200 mg PO 4X/DAY Rx Instructions: take 4x/day with levodopa/carbidopa carbidopa-levodopa 25-100 mg tablet 1 tab PO Q6H Label Comments: take 2 tablets by mouth five times a day AT 4:30-5AM, 9AM, 1PM, 5-6PM, AND MIDNIGHT Referrals / Follow Up: Joss Heredia MD [Primary Care Provider] - Disposition Disposition (needs filled in before D/C Order can be placed): [facility] Charges/Coding Visit Charges OBSV E&M: 18905 Observation care discharge
--- NOTE | 2022-07-22 16:17 | CASEMGMT ---
Discharge Company Driver This securities underwriter cancelled referral at [facility]. Per Mohini patient is now going home. Marlo DICKINSON Pipe Straightener
--- NOTE | 2022-07-22 16:19 | CASEMGMT ---
Social Work Notified by therapy that pt doing well and does not necessarily need SNF. Called pt to discuss and pt would like to return home. SW discussed with pt how family feels unable to take care of pt at home. Pt adamant in returning home. Pt requested this SW call to inform pt would be coming home. SW called to discuss. stated would take pt back home but cannot until tomorrow. Dr. Cooper agreeable pt to stay until tomorrow. requested pt receive home health care when returning home. Pt agreeable to going home tomorrow. PLAN: Discharge home 07/23 MEGAN Bone
--- NOTE | 2022-07-22 16:31 | PCM.HOSP.N ---
Hospitalist Note Mr. Paulino Kumari is stable medically, initially family was concerned they were unable to take care for him and SNF placement was pursued. Patient would not like to go to SNF and physical therapy feels he could go home. Family agreeable but unable to take him home tonight and therefore no safe discharge plan in place, will plan to discharge in the morning with family.
[2022-07-23 03:00] VITALS: BP 132/75; PULSE 52; RESP 16; TEMP 36.9; O2SAT 98
[2022-07-23 03:19] VITALS: BP 132/75; PULSE 52; RESP 16; TEMP 36.9; O2SAT 98
[2022-07-23 06:15] LABS: Absolute Lymphocyte Count 1.27 X10^3/uL (0.83-4.51); Absolute Neutrophil Count 1.9 X10^3/uL (2.0-7.7); Basophil# 0.01 X10^3/uL; Basophil% 0.3 % (0-1); Eosinophil# 0.03 X10^3/uL; Eosinophils% 0.8 % (0-5); Hematocrit 44.9 % (40-54); Hemoglobin 15.3 g/dL (13.0-16.5); Lymphocyte # 1.27 X10^3/ul (0.83-4.51); Lymphocyte % 35.8 % (19-41); Mean Corp Hgb Conc 34.1 g/dL (32-36); Mean Corpuscular Hgb 33.1 pg (27.0-32.0); Mean Corpuscular Volume 97.2 fL (80-94); Mean Platelet Vol. 10.1 fl (6.2-12.0); Monocyte% 8.5 % (0-10); NRBC Flagged by Analyzer 0 % (0-5); Neutrophil # 1.93 X10^3/uL (2.7-7.7); Neutrophil % 54.3 % (47-70); Platelet Count 116 K/mm3 (150-450); RBC Distribution Width CV 12.6 % (11.6-14.6); RBC Distribution Width SD 45.1 fl (35.1-43.9); Red Blood Count 4.62 M/mm3 (4.6-6.2); White Blood Count 3.6 K/mm3 (4.4-11.0)
[2022-07-23 06:25] LABS: International Normalized Ratio 1.4; Prothrombin Time (Protime)PT. 16.9 SECONDS (11.7-14.9)
[2022-07-23 06:43] LABS: Anion Gap 1 (5-15); BUN 18 mg/dL (7-18); BUN/Creat Ratio 25.4 RATIO (10-20); Calcium,Total 8.7 mg/dL (8.5-10.1); Chloride 109 mmol/L (98-107); Creatinine, Serum 0.71 mg/dL (0.70-1.30); EST Glomerular Filtration Rate 116 mL/min (>60); Est Glom Filt Rate - Afr Amer 140 mL/min (>60); Glucose 96 mg/dL (74-106); Potassium 3.8 mmol/L (3.5-5.1); Sodium Level 139 mmol/L (136-145)
[2022-07-23 09:00] VITALS: BP 123/72; PULSE 75; RESP 14; TEMP 37; O2SAT 96
[2022-07-23 09:19] VITALS: BP 123/72; PULSE 75; RESP 14; TEMP 37; O2SAT 96
[2022-07-23] MEDS: Carbidopa/Levodopa 25/100 Tablet PO (09:22)
[2022-07-23] MEDS: Ensure Plus High Protein 120 ML LIQUID PO (09:25)
--- NOTE | 2022-07-23 09:35 | NURSING ---
Patient is up walking in the room he feels stable enough to do it on his own.
--- NOTE | 2022-07-23 09:49 | DCINST_ITS ---
Discharge Instructions Diet Discharge Diet: No restrictions Activity Discharge Activity: Return to Normal Activity Follow Up Care Test Results: Test results from this visit will be discussed in further detail at your follow- up appointment, if applicable. Discharge Plan Admission Admit Date/Time: 07/20/22 22:51 Primary Reason for Your Visit: Weakness, COVID-19 Attending Provider: Yecenia Cooper Primary Care Provider: Joss Heredia Consulting Providers: Flako Simeon ; Liss Hamilton Instructions Patient Instructions: Coronavirus Disease 2019 (COVID-19): Overview, Coronavirus Disease 2019 (COVID-19): Caring for Yourself or Others Additional Instructions / Restrictions: *Please take this with you to your next doctors appointment* ? Your INR was noted to be low, this will need to be monitored. You are on Coumadin 7.5 mg daily, it is advised that you take 7.5 mg on Friday, Friday, Friday, Friday and 9 mg on Friday, , Friday. Will be important to have your INR checked in 3 days, please call your primary care physician on the day of discharge to schedule a hospital follow-up appointment within 1 week and see obtain an order for blood work. If there are any questions or concerns with this regimen please discuss with your primary care physician ISSAC ?Continue other home medications -Please call your primary care provider's office upon discharge to schedule a hospital follow up within 1 week. -For any concerning signs or symptoms please call 911 or proceed to the nearest emergency department Discharge Orders/Prescriptions Prescriptions: Continued warfarin 6 mg tablet 6 mg PO DAILY Label Comments: Take 1 tablet by mouth daily WITH 3MG TAB TO EQUAL 9MG entacapone [Comtan] 200 mg Tablet 200 mg PO 4X/DAY Rx Instructions: take 4x/day with levodopa/carbidopa carbidopa-levodopa 25-100 mg tablet 1 tab PO Q6H Label Comments: take 2 tablets by mouth five times a day AT 4:30-5AM, 9AM, 1PM, 5-6PM, AND MIDNIGHT Changed warfarin 3 mg tablet See Rx Instructions .ROUTE .COMPLEX Qty: 30 0RF Label Comments: Take 1 tablet by mouth daily Rx Instructions: Take 1/2 a pill with 6mg on Friday, Friday, , and Friday. Take 1 pill with 6mg on Friday, , Friday Referrals / Follow Up: Joss Heredia MD [Primary Care Provider] - Within 1 Week (Please call your primary care physician upon discharge to obtain blood work (INR) in 3 days and to schedule a hospital follow up appointment within 1 week) Disposition Disposition (needs filled in before D/C Order can be placed): Home, Self Care
--- NOTE | 2022-07-23 10:03 | PCM.DC.SUM ---
Providers Date of Admission: 07/20/22 Date of Discharge: 07/23/22 Primary Care Physician: Dr. Joss Heredia MD Reason For Visit: DEBILITY, COVID 19 Diagnosis Discharge Diagnosis (1) Debility: Status: Acute Code(s): R53.81 - Other malaise (2) COVID-19: Status: Acute Code(s): U07.1 - COVID-19 Plan 1. Debility, acute on chronic secondary to patient's acute COVID-19 infection 2. Acute COVID-19 infection, not on oxygen 3. Parkinson's disease 4. History of VTE Medications at Discharge Home Medications warfarin 6 mg tablet 6 mg PO DAILY blood thinner 04/10/21 entacapone 200 mg tablet (Comtan) 200 mg PO 4X/DAY parkinsons 04/11/21 carbidopa 25 mg-levodopa 100 mg tablet 1 tab PO Q6H parkinsons 03/18/22 warfarin 3 mg tablet See Rx Instructions .Route .COMPLEX blood thinner #30 tabs 07/23/22 Hospital Course Summary of Care Provided Minutes Spent on Discharge: 25 Hospital Course: Mr. Gill is a 72-year-old male with a history of DVT on Coumadin and Parkinson's disease who presented to [facility] 07/20/2022 with generalized weakness, falls, and feeling ill for 3 days.? He was positive for COVID-19, was vaccinated but has not been boosted.? He was monitored but was not hypoxic and did not require any treatment for COVID.? Did have subtherapeutic INR, unclear adherence and diet prior to admission but INR did not improve despite the dose, instructions written out with plan to increase dose and to call PCP to obtain blood work and have close follow-up. Initial plan was to go to residential facility however after physical therapy evaluated it was deemed he did not require any rehab. Will be sent home, lives with . Physical Exam Const alert and no apparent distress HEENT normocephalic and head/scalp atraumatic Eyes Eyes Narrative: EOM grossly intact, anicteric Neck supple Resp normal respiratory effort Cardio regular rate and regular rhythm GI non-distended Extremity Extremity Narrative: No edema appreciated Neuro moves all extremities Neuro Narrative: No overt focal deficits appreciated, up ambulating in room Psych Psych Narrative: Cooperative Weight / BMI Weight Weight: 80.15 kg Body Mass Index (BMI) 22.6 ABG / Lab / Microbiology Data Result Diagrams: 07/23/22 06:09 07/23/22 06:09 Laboratory: Laboratory Results - last 24 hr 07/20/22 20:25: Diff Path Review Reviewed 07/23/22 06:09: PT 16.9 H, INR 1.4 07/23/22 06:09: WBC 3.6 L, RBC 4.62, Hgb 15.3, Hct 44.9, MCV 97.2 H, MCH 33.1 H, MCHC 34.1, RDW Std Deviation 45.1 H, RDW Coeff of Edwige 12.6, Plt Count 116 L, MPV 10.1, Immature Gran % (Auto) 0.300, Neut % (Auto) 54.3, Lymph % (Auto) 35.8, [place] % (Auto) 8.5, Eos % (Auto) 0.8, Baso % (Auto) 0.3, Absolute Neuts (auto) 1.9 L, Absolute Lymphs (auto) 1.27, Nucleated RBC % 0 07/23/22 06:09: Sodium 139, Potassium 3.8, Chloride 109 H, Carbon Dioxide 29.0, Anion Gap 1 L, BUN 18, Creatinine 0.71, Estim Creat Clear Calc 75.70, Est GFR (MDRD) Af Amer 140, Est GFR (MDRD) Non-Af 116, BUN/Creatinine Ratio 25.4 H, Glucose 96, Calcium 8.7 Microbiology: Microbiology 07/20/22 20:35 Nasal Secretion SARS-CoV-2 Antigen (Rapid) - Final SARS-CoV-2 (COVID 19) D/C Instructions Discharge Diet: No restrictions Meaningful Use Info Meaningful Use Diagnoses (Choose all that apply): None applicable Discharge Plan Admission Admit Date/Time: 07/20/22 22:51 Primary Reason for Your Visit: Weakness, COVID-19 Attending Provider: Yecenia Cooper Primary Care Provider: Joss Heredia Consulting Providers: Flako Simeon ; Liss Hamilton Instructions Patient Instructions: Coronavirus Disease 2019 (COVID-19): Overview, Coronavirus Disease 2019 (COVID-19): Caring for Yourself or Others Additional Instructions / Restrictions: *Please take this with you to your next doctors appointment* ? Your INR was noted to be low, this will need to be monitored. You are on Coumadin 7.5 mg daily, it is advised that you take 7.5 mg on Friday, Friday, Friday, Friday and 9 mg on Friday, , Friday. Will be important to have your INR checked in 3 days, please call your primary care physician on the day of discharge to schedule a hospital follow-up appointment within 1 week and see obtain an order for blood work. If there are any questions or concerns with this regimen please discuss with your primary care physician ISSAC ?Continue other home medications -Please call your primary care provider's office upon discharge to schedule a hospital follow up within 1 week. -For any concerning signs or symptoms please call 911 or proceed to the nearest emergency department Discharge Orders/Prescriptions Prescriptions: Continued warfarin 6 mg tablet 6 mg PO DAILY Label Comments: Take 1 tablet by mouth daily WITH 3MG TAB TO EQUAL 9MG entacapone [Comtan] 200 mg Tablet 200 mg PO 4X/DAY Rx Instructions: take 4x/day with levodopa/carbidopa carbidopa-levodopa 25-100 mg tablet 1 tab PO Q6H Label Comments: take 2 tablets by mouth five times a day AT 4:30-5AM, 9AM, 1PM, 5-6PM, AND MIDNIGHT Changed warfarin 3 mg tablet See Rx Instructions .ROUTE .COMPLEX Qty: 30 0RF Label Comments: Take 1 tablet by mouth daily Rx Instructions: Take 1/2 a pill with 6mg on Friday, Friday, , and Friday. Take 1 pill with 6mg on Friday, , Friday Referrals / Follow Up: Joss Heredia MD [Primary Care Provider] - Within 1 Week (Please call your primary care physician upon discharge to obtain blood work (INR) in 3 days and to schedule a hospital follow up appointment within 1 week) Disposition Disposition (needs filled in before D/C Order can be placed): Home, Self Care Charges/Coding Visit Charges OBSV E&M: 64247 Observation care discharge
--- NOTE | 2022-07-23 10:59 | CASEMGMT ---
Addendum entered by Gracia Snell 07/23/22 11:32: Received confirmation that [facility] will see pt tomorrow. Pt aware. Original Note: RN CM in to pt room, discussed dc plan and patient is agreeable to HHC therapy at home. Patient was provided a list of [facility] providers including quality and resource use data and consistent with the patient?s preferred geographic region, medical needs, and insurance network were provided from the [employer] Guide. Pt chose [facility]. JOSE Plasencia at [facility], referral made. Will await acceptance.
[2022-07-23 11:47] VITALS: O2SAT 91; O2SAT 96
[2022-07-23 12:30] VITALS: BP 112/51; PULSE 69; RESP 14; TEMP 37; O2SAT 93
== END 2022-07-23 13:32 | disposition home health service (06) ==
LOC: ED 23:00 → MS3 23:16
PROVIDERS: Internal Medicine; Emergency Provider Emergency Medicine; PCP Family Medicine; Visit Provider Internal Medicine
DX: U07.1 COVID-19 (principal); G20 Parkinson's disease; Z79.899 Other long term (current) drug therapy; Z79.01 Long term (current) use of anticoagulants; Z86.718 Personal history of other venous thrombosis and embolism; Z95.9 Presence of cardiac and vascular implant and graft, unspecified
CPT/HCPCS: 36415; 70450; 71045; 80048; 80053; 81001; 84484; 85025; 85610; 85730; 87811; 93005; 96360; 97162; 97166; 97530; 97802; 99218; 99285; J7030; A4216; G0378

== ENCOUNTER → 2024-06-16 | Outpatient (CLI) | payer MEDICARE, OTHER, SELFPAY ==
[2024-06-16 10:22] LABS: International Normalized Ratio 2.1; Prothrombin Time (Protime)PT. 23.2 SECONDS (11.7-14.9)
[2024-06-16 12:32] LABS: Anion Gap 2 (5-15); BUN 19 mg/dL (7-18); BUN/Creat Ratio 22.1 RATIO (10-20); Chloride 109 mmol/L (98-107); Cholesterol 171 mg/dL (200); Creatinine, Serum 0.86 mg/dL (0.70-1.30); EST Glomerular Filtration Rate 92 mL/min (>60); Est Glom Filt Rate - Afr Amer 112 mL/min (>60); Glucose 100 mg/dL (74-106); High Density Lipoprotein 45 mg/dL; PSA,Total - Annual Screen 1.05 ng/mL (0.00-4.00); Potassium 4.1 mmol/L (3.5-5.1); Sodium Level 140 mmol/L (136-145); Triglycerides 81 mg/dL; Very Low Density Lipoprotein 16 mg/dL (5-40)
== END | disposition home or self-care (01) ==
LOC: MFPLAB 09:27
PROVIDERS: PCP Family Medicine; Visit Provider Family Medicine
DX: Z00.00 Encounter for general adult medical examination without abnormal findings (principal); D68.2 Hereditary deficiency of other clotting factors; Z13.6 Encounter for screening for cardiovascular disorders; Z12.5 Encounter for screening for malignant neoplasm of prostate
CPT/HCPCS: 36415; 80048; 80061; 84153; 85610; G0103

== ENCOUNTER 2024-11-29 02:59 | Inpatient (IN) | payer MEDICARE, OTHER, SELFPAY ==
[2024-11-29] VITALS (7 sets, daily range): BP systolic 117–141; BP diastolic 68–77; PULSE 59–67; RESP 16–22; TEMP 36.4–36.9; O2SAT 91–95; BMI 24.6; BMI 22.4
--- NOTE | 2024-11-29 03:03 | EX.ED.DYSGE1 ---
HPI History of Present Illness Chief Complaint: Weakness [facility] Medical History DVT (deep venous thrombosis) Foreign body in heart Parkinson disease Pericardial effusion Presence of IVC filter Weakness Home Medications ?Medication ?Instructions ?Recorded ?Last Taken ?Type warfarin 6 mg tablet 7 mg PO DAILY blood thinner 04/10/21 04/10/21 History entacapone 200 mg tablet (Comtan) 200 mg PO Q4H parkinsons 04/11/21 Unknown History carbidopa 25 mg-levodopa 100 mg 2 tab PO Q4H parkinsons 10/03/22 Unknown History tablet tamsulosin 0.4 mg capsule 0.4 mg PO DAILY PRN urinary 11/29/24 Unknown History retention Allergy/AdvReac Type Severity Reaction Status Date / Time No Known Allergies Allergy Verified 10/03/22 13:04 Family History Mother , CAD: of a heart attack at approximately age 72 CAD (coronary artery disease) Father No problems noted. Surgical History History of bilateral hip replacements History of heart surgery (~04/12/21) Total knee replacement status Social History household members: spouse Smoking Status: Never smoker alcohol intake: never substance use type: does not use caffeine: No EXAM Physical Exam Const Vital Signs: 11/29/24 03:02 11/29/24 03:05 11/29/24 05:01 Temperature 98.0 F Temperature Source Oral Pulse Rate 62 64 Respiratory Rate 18 20 H Respiratory Effort Normal Respiratory Pattern Normal Blood Pressure 126/68 H 141/75 H Blood Pressure Mean 87 97 Pulse Ox 91 95 Oxygen Delivery Method Room Air Room Air MDM MDM MDM Narrative Medical decision making narrative: HISTORY OF PRESENT ILLNESS: 74-year-old male history of factor V Leiden complicated by VTE on Coumadin status post IVC filter, CVA, presents with concern for weakness and back pain after he suffered a fall on Friday afternoon. Notes he tripped. Suffered mechanical fall. Landed on his back. Notes lower back pain. Notes he did hit his head but did NOT lose consciousness. Denies any chest pain or shortness of breath. does note some chest congestion recently has been going on for last several weeks. Denies any sick contacts or fever. Denies any vomiting or diarrhea. Not drink as much as he supposed to. Denies any urinary complaints. Denies any focal weakness. REVIEW OF SYSTEMS: Pertinent positives: Back pain, diffuse weakness Pertinent negatives: Focal weakness, chest pain, shortness of breath PHYSICAL EXAM: Nursing triage notes reviewed, Vital signs reviewed Primary Survey Airway: Intact Breathing: Bilateral breath sounds Circulation: Palpable bilateral femorals, Palpable bilateral radial, Palpable bilateral DP and Palpable bilateral PT Disability / Spine precautions GCS Score: Eye Openin Verbal Response: 5 Motor Response: 6 Secondary Survey Constitutional: Please see MDM Head: Atraumatic, Midface stable, NO jaw malocclusion, No Cephalohematoma, and No Lacerations noted Eye: Pupils equal round and reactive to light, Extraocular muscles intact and No periorbital ecchymosis or stepoff, no evidence of entrapment ENT: Dry oral mucosa, oropharynx clear, no lacerations, no hemotympanum, no raccoon eyes or mckinney sign Cervical spine / Neck: No cervical spine bony tenderness, crepitance, or stepoff deformity Trachea midline Lungs: Clear to auscultation, No asymmetric rise and No crepitus, no flail chest Cardiac: Regular rate and rhythm and No murmurs Abdomen: Soft, Nontender and No rebound Pelvis: Pelvis stable to compression : No evidence of genital injury Back: TTP over upper thoracic and lumbar spine Neuro: At baseline, intact movement and sensation in bilateral upper and lower extremities. 2+ patellar reflexes bilaterally. Extremities: NO gross Deformities Psych: Flattened affect Nursing triage notes reviewed, Vital signs reviewed MEDICAL DECISION MAKING: Chief Complaint: fall, back pain External records reviewed: Reviewed prior imaging studies, reviewed prior inpatient records Factors affecting care: As per HPI Social determinants of health: none History obtained from others: Consults: [facility] Medicine (Dr. Orozco)?agreed except the patient MedSurg full. [facility] Narrative: Patient was initially hemodynamically stable, afebrile and nontoxic-appearing. Patient appeared chronically ill. He had limited range of motion secondary to severe back pain. No focal neurologic deficits noted. Intact sensation and movement in all 4 extremities. I considered the following differential diagnosis: ICH, cervical spine injury, thoracic or lumbar spine injury, hip or pelvis injury. Dehydration, anemia, electrolyte disturbance, arrhythmia, COVID/RSV/flu amongst others I obtained a broad lab and imaging workup to further elucidate the etiology of the patient's complaints. I initially treat the patient with 4 mg IV morphine, 4 mg of IV Zofran, 500 cc bolus of normal saline ALL IMAGES (IF OBTAINED) HAVE BEEN PERSONALLY REVIEWED AND INTERPRETED BY MYSELF. EKG with normal sinus rhythm, rate of 63, normal axis, no intervals, no STEMI CBC with no leukocytosis, anemia, mild thrombocytopenia. Urinalysis shows no evidence of urinary inflammation suggestive of UTI CMP without evidence of acute kidney injury, significant electrolyte abnormality, anion gap to suggest end organ hypo-perfusion, no evidence of metabolic acidosis with a normal bicarbonate, no evidence of hepatobiliary obstructive pathology. X-ray of the patient's hip and pelvis, evaluated bilateral hips was read reviewed personally myself and showed no evidence of obvious fracture dislocation CT scan of the brain shows no evidence of ICH CT scan cervical spine negative for neck fractures CT scan thoracic spine shows acute T7 and T12 compression fracture CT scan lumbar spine shows no evidence of obvious bony abnormality CT scan of the chest/abdomen/pelvis shows compression fracture otherwise no obvious traumatic intrathoracic or abdominal pathology Upon reassessment tertiary exam revealed no new injuries. Pt still complaining of pain (given 4 mg IV morphine). No did not think he would do well at home secondary to pain and issues mobility. Lives with his elderly and no other assistance at home. Discussed admission with the patient and family. They agreed the patient would not do well at home and request to be admitted to the hospital. Will talk to hospitalist. Received is appropriate for admission for pain control given the stability of his fractures. The patient and/or family, caregivers express understanding. The patient and/or family, caregivers agrees with the plan. Shared decision making: I will have a discussion with the patient and or visitors regarding risk/benefits of further testing or admission. They will be made aware of of the risk/benefits inherent in this decision they will be given the opportunity to voice understanding. Total critical care time today provided was at least 0 minutes. This excludes separately billable procedures. Critical care time (if documented) is secondary to the patient having high probability of clinically significant/life threatening deterioration in the patient's condition which required my urgent intervention. Impression: 1. Fall 2. Acute back pain 3. Thoracic compression fractures Dispo: Admit to MedSurg full This note was generated with [employer] dictation software. It may contain incorrect words, spelling, and punctuation that were not noted in review of the chart prior to signing. Lab Data Labs: Laboratory Results - last 24 hr 11/29/24 11/29/24 03:20 03:35 WBC 8.2 RBC 4.88 Hgb 15.9 Hct 46.7 MCV 95.7 H MCH 32.6 H MCHC 34.0 RDW Std Deviation 44.2 H RDW Coeff of Edwige 12.5 Plt Count 135 L MPV 10.8 Sodium 141 Potassium 4.0 Chloride 106 Carbon Dioxide 25.8 Anion Gap 8 BUN 17 Creatinine 0.89 Estim Creat Clear Calc 84.66 Est GFR (MDRD) Non-Af 90 BUN/Creatinine Ratio 19.4 Glucose 102 H Calcium 8.9 Total Bilirubin 0.96 AST 18 ALT < 5 Alkaline Phosphatase 60 Total Protein 6.4 Albumin 3.6 Globulin 2.8 Albumin/Globulin Ratio 1.3 Urine Color Yellow Urine Clarity Clear Urine pH 6.0 Ur Specific [place] 1.015 Urine Protein Negative Urine Glucose (UA) Normal Urine Ketones 5 H Urine Occult Blood 10 H Urine Nitrite Negative Urine Bilirubin Negative Urine Urobilinogen Normal Ur Leukocyte Esterase Negative Urine RBC 0-5 SEEN Urine WBC 0-5 SEEN Ur Squamous Epith Cells 0-5 SEEN Urine Bacteria 1+ Hyaline Casts 0-5 SEEN Urine Mucus 0 SEEN Radiography Diagnostic Testing: Clinical Impression(s) from Imaging Studies Brain CT 11/29/24 03:19 IMPRESSION: Off axis imaging. No intracranial hemorrhage, mass effect or calvarial fracture. Bilateral left larger than right external auditory canal cerumen plugs. Reading Location: [facility] Cervical Spine CT 11/29/24 03:19 IMPRESSION: No fracture or malalignment. One or more dose reduction techniques were used (e.g., Automated exposure control, adjustment of the mA and/or kV according to patient size, use of iterative reconstruction technique). Reading Location: [facility] Chest/Abdomen/Pelvis CT 11/29/24 03:19 IMPRESSION: No evidence of acute intrathoracic traumatic injury. Thoracic spine compression fracture deformities as above. No evidence of acute intra-abdominal traumatic injury. Cholelithiasis. Inferior vena cava filter. One or more dose reduction techniques were used (e.g., Automated exposure control, adjustment of the mA and/or kV according to patient size, use of iterative reconstruction technique). Reading Location: [facility] Hip/Pelvis X-Ray 11/29/24 03:19 IMPRESSION: No acute fracture or dislocation. Reading Location: [facility] Thoracic Spine CT 11/29/24 03:19 IMPRESSION: Thoracic compression fracture deformities as above. No malalignment. One or more dose reduction techniques were used (e.g., Automated exposure control, adjustment of the mA and/or kV according to patient size, use of iterative reconstruction technique). Reading Location: [facility] Discharge Plan Triage Chief Complaint: Weakness ED Provider: Edvin Rneee Dx/Rx/DC Orders Prescriptions: No Action warfarin 6 mg tablet 7 mg PO DAILY Patient Comments: Take 1 tablet by mouth daily WITH 3MG TAB TO EQUAL 9MG entacapone [Comtan] 200 mg Tablet 200 mg PO Q4H Rx Instructions: take 4x/day with levodopa/carbidopa carbidopa-levodopa 25-100 mg tablet 2 tab PO Q4H Patient Comments: take 2 tablets by mouth six times a day AT 4:30-5AM, 9AM, 1PM, 5-6PM, AND MIDNIGHT tamsulosin 0.4 mg capsule 0.4 mg PO DAILY PRN (Reason: urinary retention) Primary Care Provider: Joss Heredia Referrals: Joss Heredia MD [Primary Care Provider] - Print Language: Citizen Of [place]
--- NOTE | 2024-11-29 03:19 | RAD_ITS ---
PROCEDURE: HIPS B/L MIN 2 VIEWS W/ PELVIS REASON FOR EXAM: Low back pain, bilateral hip pain, fall TECHNIQUE: AP view of the pelvis, AP and frog-leg lateral views of the right and left hip, 5 total images COMPARISON: 07/30/2019 FINDINGS: No acute fracture or dislocation. Right hip replacement and left femoral hardware again noted and appears intact. Pubic symphysis appears within limits. Vascular calcifications noted. RAD/Hips B/L min 2 views w/ Pelvis IMPRESSION: No acute fracture or dislocation. Reading Location: [id number]
--- NOTE | 2024-11-29 03:19 | CT_ITS ---
EXAM: BRAIN/HEAD WITHOUT CONTRAST CLINICAL HISTORY: Fall, head trauma COMPARISON: 07/20/2022 TECHNIQUE: Noncontrast head CT with coronal and sagittal reformatted images FINDINGS: Off axis imaging. No intracranial hemorrhage, mass effect or calvarial fracture. The ventricles are unchanged in size and remain midline. Volume loss, atrophy again noted. The visualized paranasal sinuses, mastoids and orbits appear within limits. Bilateral left larger than right external auditory canal cerumen plugs. CT/Brain/Head without Contrast IMPRESSION: Off axis imaging. No intracranial hemorrhage, mass effect or calvarial fracture . Bilateral left larger than right external auditory canal cerumen plugs. Reading Location: [id number]
--- NOTE | 2024-11-29 03:19 | CT_ITS ---
PROCEDURE: CT CHEST, ABD, PEL W/CONTRAST REASON FOR EXAM: Fall, abdominal pain TECHNIQUE: Chest, abdomen and pelvis CT with intravenous contrast. Coronal and sagittal reformatted images CONTRAST: 90 cc Isovue 370 COMPARISON: None. FINDINGS: CT CHEST: Small amount of mucus dependently at the left side of the dixie for example axial 49. The central airways appear patent. Bilateral dependent and basilar atelectasis. No pneumothorax. Sequela of previous granulomatous disease with calcified granulomas and hilar and mediastinal nodes. Thoracic aorta appears within limits. No pericardial or pleural effusion. Status post median sternotomy. Left shoulder osteoarthrosis. Mild compression deformity of T3 for example coronal 161 without visualized fracture plane. Acute appearing T7 thoracic compression deformity with approximately 60-70% loss of vertebral body height sagittal 145. No retropulsion of bone. No significant appearing paraspinal hematoma. Mild acute appearing compression fracture of T12 without retropulsion of bone or significant appearing paraspinal hematoma. No malalignment. Please refer to thoracic spine report for details. CT ABDOMEN/PELVIS: The liver, adrenal glands, pancreas and spleen appear within limits. 4.5 cm right renal cortical cyst. The kidneys appear within limits. Several calcified gallstones nondistended, noninflamed appearing gallbladder. Inferior vena cava filter noted. Aorto iliac atherosclerotic change and undulating iliac vessels. No abdominal aortic aneurysm. No bowel dilation, free air or free fluid. The appendix appears within limits. [id number] amount of proximal colonic stool. A few noninflamed colonic diverticula. [place] artifact from right hip replacement and left femoral gamma nail. The bladder appears within limits as visualized. L5-S1 spondylosis/discogenic change. CT/CT Chest, Abd, Pel w/Contrast IMPRESSION: No evidence of acute intrathoracic traumatic injury. Thoracic spine compression fracture deformities as above. No evidence of acute intra-abdominal traumatic injury. Cholelithiasis. Inferior vena cava filter. One or more dose reduction techniques were used (e.g., Automated exposure contr ol, adjustment of the mA and/or kV according to patient size, use of iterative reconstruction technique). Reading Location: [id number]
--- NOTE | 2024-11-29 03:19 | CT_ITS ---
PROCEDURE: SPINE LUMBAR WITHOUT CONTRAST REASON FOR EXAM: Back pain, fall TECHNIQUE: Lumbar spine CT without contrast. Coronal and sagittal reformatted images COMPARISON: None. FINDINGS: No acute fracture or malalignment. Spondylosis/discogenic change L5-S1 with severe disc space narrowing, vacuum effect, degenerative endplate change, sclerosis and bilateral foraminal narrowing. The SI joints and pubic symphysis appear within limits. CT/Spine Lumbar without Contrast IMPRESSION: No acute fracture or malalignment lumbar spine. L5-S1 spondylosis/discogenic change. One or more dose reduction techniques were used (e.g., Automated exposure contr ol, adjustment of the mA and/or kV according to patient size, use of iterative reconstruction technique). Reading Location: [id number]
--- NOTE | 2024-11-29 03:19 | EKG12_ITS ---
Test Reason : DYSRHYTHMIA Blood Pressure : */* mmHG Vent. Rate : 63 BPM Atrial Rate : 63 BPM P-R Int : 146 ms QRS Dur : 108 ms QT Int : 422 ms P-R-T Axes : 33 55 13 degrees QTcB Int : 431 ms Normal sinus rhythm Incomplete left bundle branch block Borderline ECG Confirmed by Mitchel Murcia [id number]), editor news KENY FLORES ([id number]) on 11/30/2024 10:49:33 AM Referred By: Confirmed By: Mitchel Murcia
--- NOTE | 2024-11-29 03:19 | CT_ITS ---
PROCEDURE: SPINE THORACIC WITHOUT CONTRAS REASON FOR EXAM: Back pain, fall TECHNIQUE: Thoracic spine CT without contrast. Coronal and sagittal reformatted images COMPARISON: None. FINDINGS: Mild compression deformity of T3 without visualized fracture plane sagittal 59. Acute appearing compression deformity of T7 with 60-70% loss of vertebral body height. No retropulsion of bone or significant appearing paraspinal hematoma identified. Posterior elements appear intact. T12 acute compression fracture with mild loss of vertebral body height. No retropulsion of bone. No significant appearing paraspinal hematoma identified. Posterior elements appear intact. No malalignment. CT/Spine Thoracic without Contras IMPRESSION: Thoracic compression fracture deformities as above. No malalignment. One or more dose reduction techniques were used (e.g., Automated exposure contr ol, adjustment of the mA and/or kV according to patient size, use of iterative reconstruction technique). Reading Location: [id number]
--- NOTE | 2024-11-29 03:19 | CT_ITS ---
PROCEDURE: SPINE CERVICAL WITHOUT CONTRAS REASON FOR EXAM: Fall, neck pain TECHNIQUE: Cervical spine CT without contrast. Coronal and sagittal reformatted images COMPARISON: None. FINDINGS: No fracture or malalignment. No prevertebral soft tissue swelling. C5-6 and C6-7 spondylosis/discogenic change with bilateral [id number] appearing foraminal narrowing. Moderate to severe appearing foraminal narrowing on the right at C3-4 due to hypertrophic facet change. CT/Spine Cervical without Contras IMPRESSION: No fracture or malalignment. One or more dose reduction techniques were used (e.g., Automated exposure contr ol, adjustment of the mA and/or kV according to patient size, use of iterative reconstruction technique). Reading Location: [id number]
[2024-11-29] MEDS: Morphine 4 MG/ML Syringe IV ×2 (03:30→05:56)
[2024-11-29] MEDS: 0.9% Normal Saline (500mL Bag) 500 ML 999 ML IV (03:30)
[2024-11-29] MEDS: Ondansetron 4 MG/2 ML Vial IV (03:30)
[2024-11-29 03:33] LABS: Hematocrit 46.7 % (40-54); Hemoglobin 15.9 g/dL (13.0-16.5); Mean Corpuscular Hgb 32.6 pg (27.0-32.0); Mean Corpuscular Volume 95.7 fL (80-94); Mean Platelet Vol. 10.8 fl (6.2-12.0); Platelet Count 135 K/mm3 (150-450); RBC Distribution Width CV 12.5 % (11.6-14.6); RBC Distribution Width SD 44.2 fl (35.1-43.9); Red Blood Count 4.88 M/mm3 (4.6-6.2); White Blood Count 8.2 K/mm3 (4.4-11.0)
[2024-11-29 03:49] LABS: Mucous, Urine 0 SEEN /hpf (<or=2+)
[2024-11-29 03:50] LABS: Color, Urine Yellow (Yellow); Glucose, Dipstick Normal (Normal); Ketone-Dipstick 5 mg/dl (Negative); Leukocyte Esterase-Dipstick Negative /ul (Negative); Nitrite-Dipstick Negative (Negative); Occult Blood-Urine 10 /ul (Negative); Protein-Dipstick Negative (Negative); Specific Gravity, Urine 1.015 (1.002-1.030); Urine Bilirubin Dipstick Negative (Negative); Urine Clarity Clear (Clear); Urine Urobilinogen Normal (Normal)
[2024-11-29 04:03] LABS: Bacteria 1+ /hpf (None Seen); Hyaline Cast 0-5 SEEN /lpf (0-5); Red Blood Cells-Urine 0-5 SEEN /hpf (0-5); Squamous Epithelial Cells - UA 0-5 SEEN /hpf (0-5); White Blood Cells 0-5 SEEN /hpf (0-5)
[2024-11-29 04:13] LABS: ALB/GLOB Ratio 1.3 RATIO (0.9-2.4); AST(SGOT) 18 U/L (<=37); Alanine Aminotransfer ALT/SGPT < 5 U/L (<=46); Albumin, Serum 3.6 g/dL (3.4-4.8); Alkaline Phosphatase 60 U/L (40-129); Anion Gap 8 (5-15); BUN 17 mg/dL (4-19); BUN/Creat Ratio 19.4 RATIO (10-20); Calcium,Total 8.9 mg/dL (7.6-11.0); Carbon Dioxide 25.8 mmol/L (21.0-32.0); Chloride 106 mmol/L (98-108); Creatinine, Serum 0.89 mg/dL (0.70-1.20); EST Glomerular Filtration Rate 90 (>60); Estimated Creatinine Clearance 84.66 ml/min (50-250); Globulin 2.8 g/dL (2.2-4.2); Glucose 102 mg/dL (70-99); Protein, Total 6.4 g/dL (5.9-8.4); Sodium Level 141 mmol/L (133-145); Total Bilirubin 0.96 mg/dL (0.00-1.30)
--- NOTE | 2024-11-29 06:14 | HP.PCM.HOS_ITS ---
HPI - General General Date of Admission: 11/29/24 Date of Service: 11/29/24 Chief Complaint: Back pain s/p fall HPI Narrative The patient is a 74 y/o M w/ PMHx: Chronic thrombocytopenia, Factor V Leiden mutation w/ Hx VTE (DVT) s/p IVCF placement, Parkinson's disease, Hx CVA, Chronic venous insufficiency, BPH with obstructive pathology who presents to the [facility] ED on 11/29/24 with history of weakness, debility and persistent back discomfort following a fall from standing this prior Friday afternoon prior to current presentation noting that he had tripped and suffered a mechanical fall landing on his back with discomfort to the lumbar back with no head trauma or loss of consciousness otherwise well except for recent congestion over the last several weeks but no fevers or chills prompting eventual ED evaluation to be cautious. Patient reports his back discomfort at 5 out of 10 in severity. In the ED workup included T98, heart rate 62, BP 126/68, respiratory rate 18, 91% on room air, CBC with WC 8.2, hemoglobin 15.9, platelets 135 without differential, CMP unremarkable aside glucose 102, CT brain without contrast with no acute intracranial finding, bilateral left larger than right and external auditory canal cerumen plug, CT chest/abdomen/pelvis with contrast with no acute intra-abdominal finding, thoracic spine compression fraction deformities, cholelithiasis, evidence of inferior vena cava filter, CT cervical spine without contrast with no acute fracture or malalignment, CT lumbar spine without contrast with no acute fracture or malalignment, CT thoracic spine without contrast with mild compression deformity T3 without visualized fracture plane, acute appearing compression deformity of T7 with 67% loss of vertebral body height with no retropulsion of bone or significant appearing paraspinal hematoma with posterior elements appear intact, T12 acute compression fracture with mild loss of vertebral body height, no retropulsion of bone, no significant appearing paraspinal hematoma with posterior elements appearing intact, no malalignment, bilateral hip and pelvis plain film with no acute fracture or dislocation, EKG with sinus rhythm with no acute evidence of ischemia, rapid SARS COVID/flu/influenza PCR negative, urinalysis with spec gravity 1.015, ketone 5, occult blood 10, negative nitrite, negative leukocyte esterase, no urine RBCs or WBCs with 1+ bacteria noted. In the ED patient ministered 1 L normal saline, morphine 4 mg IV x 1, Zofran 4 mg IV x 1. PFSH Medical History Weakness Pericardial effusion Foreign body in heart Presence of IVC filter DVT (deep venous thrombosis) Parkinson disease Home Medications ?Medication ?Instructions ?Recorded ?Last Taken ?Type warfarin 6 mg tablet 7 mg PO DAILY blood thinner 04/10/21 04/10/21 History entacapone 200 mg tablet (Comtan) 200 mg PO Q4H belen sons 04/11/21 Unknown History carbidopa 25 mg-levodopa 100 mg 2 tab PO Q4H parkinson s 10/03/22 Unknown History tablet tamsulosin 0.4 mg capsule 0.4 mg PO DAILY PRN urinary 11/29/24 Unknown History retention Allergy/AdvReac Type Severity Reaction Status Date / Time No Known Allergies Allergy Verified 10/03/22 13:04 Family History Mother , CAD: of a heart attack at approximately age 72 CAD (coronary artery disease) Father No problems noted. Surgical History History of heart surgery (~04/12/21) History of bilateral hip replacements Total knee replacement status Social History household members: spouse Smoking Status: Never smoker alcohol intake: never substance use type: does not use caffeine: No ROS ROS Narrative Admission Review of Systems: CONSTITUTIONAL: No weight loss, fever, chills, + weakness or fatigue. HEENT: Eyes: No visual loss, blurred vision, double vision or yellow sclerae. Ears, Nose, Throat: No hearing loss, sneezing, congestion, runny nose or sore throat. SKIN: No rash or itching, lesions, wounds. CARDIOVASCULAR: No chest pain, chest pressure or chest discomfort, palpitations, edema, orthopnea, syncopal events. RESPIRATORY: No shortness of breath, cough or sputum, wheezing, hemoptysis. GASTROINTESTINAL: No anorexia, nausea, vomiting or diarrhea, abdominal pain, melena, BRBPR. GENITOURINARY: No dysuria, frequency, urgency or retention. NEUROLOGICAL: + Underlying Parkinson's disease. No headache, dizziness, syncope, paralysis, ataxia, numbness or tingling in the extremities, focal weakness, change in bowel or bladder control, seizure. MUSCULOSKELETAL: + muscle, back pain, joint pain or stiffness. HEMATOLOGIC: No anemia. + Easy bleeding/bruising. LYMPHATICS: No enlarged nodes. No history of splenectomy. PSYCHIATRIC: No history of depression or anxiety. ENDOCRINOLOGIC: No reports of sweating, cold or heat intolerance. No polyuria or polydipsia. ALLERGIES: No history of asthma, hives, eczema or rhinitis. Vital Signs Vital Signs Vital Signs: 11/29/24 03:02 11/29/24 03:05 11/29/24 05:01 Temperature 98.0 F Temperature Source Oral Pulse Rate 62 64 Respiratory Rate 18 20 H Respiratory Effort Normal Respiratory Pattern Normal Blood Pressure 126/68 H 141/75 H Blood Pressure Mean 87 97 Pulse Ox 91 95 Oxygen Delivery Method Room Air Room Air 11/29/24 05:51 Temperature 98.4 F Temperature Source Pulse Rate 64 Respiratory Rate 17 Respiratory Effort Respiratory Pattern Blood Pressure 134/77 H Blood Pressure Mean 96 Pulse Ox 95 Oxygen Delivery Method Weight Weight: 191 lb 12.8 oz Body Mass Index (BMI) 24.6 Physical Exam Narrative Physical Examination: General: Awake, alert, oriented x 3 and cooperative, laying in ED bed, notes persistent discomfort but worse if he attempts to move, fatigued appearing. Skin: Normal color, normal turgor, no icterus, no cyanosis. HEENT: AT/NC, EOMI, bilateral scleral injection, PERRLA, mildly dry MM, no carotid bruits or JVD noted. Lungs: Mildly diminished, greater bases, proper effort, no rales, ronchi or wheezing. Heart: Regular rate and rhythm; no gallop, rub audible. Abdomen: Soft, NTTP, ND, mildly hyperactive BS, no appreciated HSM. Extremities: No cyanosis, no clubbing, mild ankle not markedly pitting bilateral edema. Neurological: Patient awake, alert, oriented as noted, cognitive function intact; pupils equally reactive to light and accommodation, cranial nerves grossly normal, moving all 4 extremities but very limited because of pain elicited, tender over the thoracic and lumbar spine, strength accordingly severely globally decreased. Psychiatric: Affect appears fatigued, uncomfortable, no acute evidence of depressive or anxiety feelings. Results Lab / Micro Data 11/29/24 03:20 11/29/24 03:20 Labs: Laboratory Results - last 24 hr 11/29/24 03:20: WBC 8.2, RBC 4.88, Hgb 15.9, Hct 46.7, MCV 95.7 H, MCH 32.6 H, MCHC 34.0, RDW Std Deviation 44.2 H, RDW Coeff of Edwige 12.5, Plt Count 135 L, MPV 10.8, Sodium 141, Potassium 4.0, Chloride 106, Carbon Dioxide 25.8, Anion Gap 8, BUN 17, Creatinine 0.89, Estim Creat Clear Calc 84.66, Est GFR (MDRD) Non-Af 90, BUN/Creatinine Ratio 19.4, Glucose 102 H, Calcium 8.9, Total Bilirubin 0.96, AST 18, ALT < 5, Alkaline Phosphatase 60, Total Protein 6.4, Albumin 3.6, Globulin 2.8, Albumin/Globulin Ratio 1.3 11/29/24 03:35: Urine Color Yellow, Urine Clarity Clear, Urine pH 6.0, Ur Specific [place] 1.015, Urine Protein Negative, Urine Glucose (UA) Normal, Urine Ketones 5 H, Urine Occult Blood 10 H, Urine Nitrite Negative, Urine Bilirubin Negative, Urine Urobilinogen Normal, Ur Leukocyte Esterase Negative, Urine RBC 0-5 SEEN, Urine WBC 0-5 SEEN, Ur Squamous Epith Cells 0-5 SEEN, Urine Bacteria 1+, Hyaline Casts 0-5 SEEN, Urine Mucus 0 SEEN Micro: Microbiology 11/29/24 03:28 Mucosa - Nose SARS-CoV-2, Influenza & RSV (PCR) - Final Imaging Radiology Impression Brain CT 11/29/24 03:19 IMPRESSION: Off axis imaging. No intracranial hemorrhage, mass effect or calvarial fracture. Bilateral left larger than right external auditory canal cerumen plugs. Reading Location: [facility] Cervical Spine CT 11/29/24 03:19 IMPRESSION: No fracture or malalignment. One or more dose reduction techniques were used (e.g., Automated exposure control, adjustment of the mA and/or kV according to patient size, use of iterative reconstruction technique). Reading Location: [facility] Chest/Abdomen/Pelvis CT 11/29/24 03:19 IMPRESSION: No evidence of acute intrathoracic traumatic injury. Thoracic spine compression fracture deformities as above. No evidence of acute intra-abdominal traumatic injury. Cholelithiasis. Inferior vena cava filter. One or more dose reduction techniques were used (e.g., Automated exposure control, adjustment of the mA and/or kV according to patient size, use of iterative reconstruction technique). Reading Location: [facility] Hip/Pelvis X-Ray 11/29/24 03:19 IMPRESSION: No acute fracture or dislocation. Reading Location: [facility] Lumbar Spine CT 11/29/24 03:19 IMPRESSION: No acute fracture or malalignment lumbar spine. L5-S1 spondylosis/discogenic change. One or more dose reduction techniques were used (e.g., Automated exposure control, adjustment of the mA and/or kV according to patient size, use of iterative reconstruction technique). Reading Location: [facility] Thoracic Spine CT 11/29/24 03:19 IMPRESSION: Thoracic compression fracture deformities as above. No malalignment. One or more dose reduction techniques were used (e.g., Automated exposure control, adjustment of the mA and/or kV according to patient size, use of iterative reconstruction technique). Reading Location: [facility] Assessment & Plan Assessment/Plan (1) Compression fracture of body of thoracic vertebra: PLAN: Plan The patient is a 74 y/o M w/ PMHx: Chronic thrombocytopenia, Factor V Leiden mutation w/ Hx VTE (DVT) s/p IVCF placement, Parkinson's disease, Hx CVA, Chronic venous insufficiency, BPH with obstructive pathology who presents to the [facility] ED on 11/29/24 with history of weakness, debility and persistent back discomfort following a fall from standing this prior Friday afternoon prior to current presentation noting that he had tripped and suffered a mechanical fall landing on his back with discomfort to the lumbar back with no head trauma or loss of consciousness otherwise well except for recent congestion over the last several weeks but no fevers or chills prompting eventual ED evaluation to be cautious. #1. Acute Intractable Back Pain status post recent fall with acute appearing compression deformity of T3, T7, T12: Will admit to [facility], maintain on fall precautions, frequent positioning, initiate IV low-dose toradol x 3 doses given chronic anticoagulation, lidoacine patches, tizanidine, low-dose gabapentin, po/IV narcotic pain regimen, anti-emetics, bowel regimen. Will temporarily hold Coumadin with INR trending pending Ortho evaluation in case of intervention needs and add back if no intervention possible. Will consult orthospine. Will consult PT and OT for evaluation as well as Case management for discharge planning. #2. Parkinson's disease with unclear dementia component: Complicates presentation, high fall risk, we will continue patient entacapone and Sinemet regimen, maintain on fall precautions, PT/OT/case management consulted for discharge planning. #3. Chronic thrombocytopenia, unclear etiology: Admission platelets 135, previous baseline noted 116-131 more recently although these labs are remote since 2021, will continue to trend CBC. #4. History CVA: Will hold Coumadin with INR trending pending Ortho evaluation in case of intervention needs w/ re-addition if no intervention possible, not on statin therapy nor hypertensive regimen, no diabetic history. #5. Factor V Leiden mutation w/ Hx VTE (DVT): s/p IVCF placement, complicated by history of migration of the filter to the right ventricle eventually requiring urgent/emergent CT surgery to evacuate the pericardial space and remove the foreign body. Given possible intervention needs we will hold Coumadin with INR trending pending Ortho evaluation and add back if no intervention possible. #6. BPH with obstructive pathology: Continue home Flomax regimen. #7. Chronic venous insufficiency: Will hold Coumadin with INR trending pending Ortho evaluation in case of intervention needs. Will place bilateral lower extremity SCDs concurrently. #8. DVT prophylaxis: Will hold Coumadin with INR trending pending Ortho evaluation in case of intervention needs. Add back if no intervention possible. #9. CODE status: Patient HCPOA are his and daughter and living will is currently in place. Discussed CODE status at length including difference between FULL code, DNR-CCA and DNR-CC status. Following discussions about the differences in these status, requested Full Code status. Charges/Coding Visit Charges Inpatient E&M: 41218 Init Hosp L3
[2024-11-29 06:20] LABS: International Normalized Ratio 3.5
[2024-11-29] MEDS: 0.9% Normal Saline (1000mL) 1,000 ML 100 ML IV (07:35)
--- NOTE | 2024-11-29 07:59 | PCM.PN.HOSP ---
Reason for Visit Reason for Visit: Diagnoses Wedge compression fracture of unspecified thoracic vertebra, initial encounter for closed fracture (11/29/24) Subjective Subjective Patient reports falling between his refrigerator and kitchen island, landing on his buttocks. Objective Data Objective Data Vital Signs: Vital Signs Temp Pulse Resp BP Pulse Ox O2 Del Method 36.4 C L 60 22 H 117/74 94 Room Air 11/29/24 07:27 11/29/24 07:27 11/29/24 07:27 11/29/24 07:27 11/29/24 07:27 11/29/24 07:27 Oxygen Delivery Method Room Air Weight: 79.3 kg Body Mass Index (BMI) 22.4 Intake & Output: Intake and Output for Last 24 Hours 11/27/24 11/29/24 11/29/24 23:59 00:59 23:59 Intake Total 500 / 500 Balance 500 / 500 Lab / Micro Data 11/29/24 03:20 11/29/24 03:20 Labs: Laboratory Results - last 24 hr 11/29/24 03:20: WBC 8.2, RBC 4.88, Hgb 15.9, Hct 46.7, MCV 95.7 H, MCH 32.6 H, MCHC 34.0, RDW Std Deviation 44.2 H, RDW Coeff of Edwige 12.5, Plt Count 135 L, MPV 10.8, PT 36.0 H, INR 3.5, Sodium 141, Potassium 4.0, Chloride 106, Carbon Dioxide 25.8, Anion Gap 8, BUN 17, Creatinine 0.89, Estim Creat Clear Calc 84.66, Est GFR (MDRD) Non-Af 90, BUN/Creatinine Ratio 19.4, Glucose 102 H, Calcium 8.9, Total Bilirubin 0.96, AST 18, ALT < 5, Alkaline Phosphatase 60, Total Protein 6.4, Albumin 3.6, Globulin 2.8, Albumin/Globulin Ratio 1.3 11/29/24 03:35: Urine Color Yellow, Urine Clarity Clear, Urine pH 6.0, Ur Specific [place] 1.015, Urine Protein Negative, Urine Glucose (UA) Normal, Urine Ketones 5 H, Urine Occult Blood 10 H, Urine Nitrite Negative, Urine Bilirubin Negative, Urine Urobilinogen Normal, Ur Leukocyte Esterase Negative, Urine RBC 0-5 SEEN, Urine WBC 0-5 SEEN, Ur Squamous Epith Cells 0-5 SEEN, Urine Bacteria 1+, Hyaline Casts 0-5 SEEN, Urine Mucus 0 SEEN Micro: Microbiology 11/29/24 03:28 Mucosa - Nose SARS-CoV-2, Influenza & RSV (PCR) - Final Radiography Diagnostic Testing: Radiology Impression Brain CT 11/29/24 03:19 IMPRESSION: Off axis imaging. No intracranial hemorrhage, mass effect or calvarial fracture. Bilateral left larger than right external auditory canal cerumen plugs. Reading Location: [facility] Cervical Spine CT 11/29/24 03:19 IMPRESSION: No fracture or malalignment. One or more dose reduction techniques were used (e.g., Automated exposure control, adjustment of the mA and/or kV according to patient size, use of iterative reconstruction technique). Reading Location: [facility] Chest/Abdomen/Pelvis CT 11/29/24 03:19 IMPRESSION: No evidence of acute intrathoracic traumatic injury. Thoracic spine compression fracture deformities as above. No evidence of acute intra-abdominal traumatic injury. Cholelithiasis. Inferior vena cava filter. One or more dose reduction techniques were used (e.g., Automated exposure control, adjustment of the mA and/or kV according to patient size, use of iterative reconstruction technique). Reading Location: [facility] Hip/Pelvis X-Ray 11/29/24 03:19 IMPRESSION: No acute fracture or dislocation. Reading Location: [facility] Lumbar Spine CT 11/29/24 03:19 IMPRESSION: No acute fracture or malalignment lumbar spine. L5-S1 spondylosis/discogenic change. One or more dose reduction techniques were used (e.g., Automated exposure control, adjustment of the mA and/or kV according to patient size, use of iterative reconstruction technique). Reading Location: [facility] Thoracic Spine CT 11/29/24 03:19 IMPRESSION: Thoracic compression fracture deformities as above. No malalignment. One or more dose reduction techniques were used (e.g., Automated exposure control, adjustment of the mA and/or kV according to patient size, use of iterative reconstruction technique). Reading Location: [facility] Physical Exam Const alert and no apparent distress HEENT head/scalp atraumatic and moist oral mucous membranes Head and Scalp: normocephalic Resp normal respiratory effort and no retractions Extremity normal to inspection and no clubbing, cyanosis or edema Neuro no focal motor deficits Sensorium / Orientation: awake and alert Psych affect normal Assessment & Plan Assessment/Plan (1) Compression fracture of body of thoracic vertebra: PLAN: 2/2 mechanical fall. T3, T7 and T12. Most pronounced at T7 Ortho spine unavailable until 12/03. Consult pain mgmt to see if T7 would be amenable to kyphoplasty. Pain control. 25-OH d level 29.2. Replace w ergocalciferol 50k units weekly x8 weeks. (2) Debility: PLAN: baseline debility 2/2 Parkinson's disease, now more pronounced give the thoracic vertebrae fractures PT OT. anticipate SNF placement upon discharge. PLAN: Plan VTE prophylaxis: SCDs. Charges/Coding Visit Charges Inpatient E&M: 95851 Subs Hosp L2
[2024-11-29] MEDS: Gabapentin 100 MG Capsule PO ×3 (08:15→16:44)
[2024-11-29] MEDS: Lidocaine 5% Patch 3 PATCH TOPICAL (08:16)
[2024-11-29] MEDS: tiZANidine HCl 2 MG Tablet PO (08:19)
[2024-11-29] MEDS: Ketorolac 15 MG/ML Vial IV ×3 (08:26→21:26)
[2024-11-29 09:42] LABS: Vitamin D,25 Hydroxy 29.2 ng/mL (30-100)
--- NOTE | 2024-11-29 10:22 | CASEMGMT ---
Addendum entered by Gracia Snell 11/29/24 15:55: Pt nurse requested RN GONZALES speak to pt who is present. RN GONZALES into pt room, pt asks about incontinence products for pt at home. Provided handout with [employer] for her. She asks if the [place] would cover. She states that pt uses the [facility] and sees FENCE MACHINE OPERATOR Nathaniel. She will call regarding this. Pt states they did not have the best experience in the past with HHC and she is more looking for someone to assist with bathing and grooming pt. She plans on pt returning home at ca. Ortho c/s cancelled and pain mgmt c/s ordered. Original Note: ARLINE ROLON Assessment: Face to Face with pt for initial transition planning/care coordination assessment. ARLINE ROLON introduced self and role at [facility], pt voices understanding and consents to assessment. Pt is A&O x4 and answers all questions appropriately at this time. Pt lying in bed in no distress. Care providers, pharmacy, and demographics verified/updated. Admitting Dx: fall, thoracic compression fx Strata Score: 2 PCP:Giovanna Specialists:Denies Preferred Pharmacy:[facility] Insurance: [facility], [employer] Prescription Benefit: yes LNOK: Mary Gill, ; Vannessa Delgadillo, dtsarmad Living Arrangements: Pt lives with in a two story home with 3 steps to enter with a rail. Pt reports for the last month pt has needed assistance with all ADL/IADLs and his assists him. Pt states he knows it is hard on her. Transportation: Pt states his license was taken from him. Family transports him to medical appts. DME:grab bars in the bathroom, cane, walker HHC/SNF: Pt has had HHC in the past but cannot recall the name. Pt denies SNFs. Pt to have ortho consult and therapy evals. Pt states no further concerns/needs. CM to follow. Advised pt to ask CM if any further questions/concerns/needs arise, voices understanding. Pt Goal: Home with assistance Plan: TBD pending ortho eval and therapy blas Lagos RN, CM
[2024-11-29] MEDS: Carbidopa/Levodopa 25/100 Tablet PO ×2 (13:34→16:45)
[2024-11-30] VITALS: O2SAT 93
[2024-11-30 02:00] VITALS: BP 175/88; PULSE 59; RESP 16; TEMP 36.6; O2SAT 95
[2024-11-30] MEDS: tiZANidine HCl 2 MG Tablet PO (03:04)
[2024-11-30] MEDS: Acetaminophen 325 MG Tablet 650 MG PO (03:04)
[2024-11-30 06:00] VITALS: BMI 24.3
[2024-11-30] MEDS: Carbidopa/Levodopa 25/100 Tablet PO ×4 (06:05→16:54)
[2024-11-30] MEDS: Senna/Docusate Sodium 1 Tablet 2 TABLET PO (06:11)
[2024-11-30 06:54] LABS: Absolute Lymphocyte Count 1.18 X10^3/uL (0.83-4.51); Basophil# 0.01 X10^3/uL; Basophil% 0.1 % (0-1); Eosinophil# 0.08 X10^3/uL; Eosinophils% 1.2 % (0-5); Hematocrit 43.6 % (40-54); Lymphocyte # 1.18 X10^3/ul (0.83-4.51); Lymphocyte % 17.4 % (19-41); Mean Corp Hgb Conc 34.4 g/dL (32-36); Mean Corpuscular Hgb 32.9 pg (27.0-32.0); Mean Corpuscular Volume 95.6 fL (80-94); Mean Platelet Vol. 11.2 fl (6.2-12.0); Monocyte# 0.53 X10^3/uL; Monocyte% 7.8 % (0-10); NRBC Flagged by Analyzer 0 % (0-5); Neutrophil # 4.97 X10^3/uL (2.7-7.7); Neutrophil % 73.2 % (47-70); Platelet Count 138 K/mm3 (150-450); RBC Distribution Width CV 12.7 % (11.6-14.6); RBC Distribution Width SD 45.1 fl (35.1-43.9); Red Blood Count 4.56 M/mm3 (4.6-6.2); White Blood Count 6.8 K/mm3 (4.4-11.0)
[2024-11-30 06:59] LABS: International Normalized Ratio 3.5; Prothrombin Time (Protime)PT. 36.2 SECONDS (11.7-14.9)
--- NOTE | 2024-11-30 07:52 | PCM.PN.HOSP ---
Reason for Visit Reason for Visit: Diagnoses Other malaise (11/29/24) Wedge compression fracture of unspecified thoracic vertebra, initial encounter for closed fracture (11/29/24) Subjective Subjective Feels better, but still with back pain. Objective Data Objective Data Vital Signs: Vital Signs Temp Pulse Resp BP Pulse Ox O2 Del Method 36.6 C 59 L 16 175/88 H 95 Room Air 11/30/24 02:00 11/30/24 02:00 11/30/24 02:00 11/30/24 02:00 11/30/24 02:00 11/30/24 02:00 Oxygen Delivery Method Room Air Weight: 85.8 kg Body Mass Index (BMI) 24.3 Intake & Output: Intake and Output for Last 24 Hours 11/29/24 11/29/24 11/30/24 00:59 23:59 23:59 Intake Total 1416.67 / 1416.67 Output Total 300 / 500 400 / 400 Balance 1116.67 / 916.67 -400 / -400 Lab / Micro Data 11/30/24 05:53 11/30/24 05:53 Labs: Laboratory Results - last 24 hr 11/29/24 03:20: Vitamin D 25-Hydroxy 29.2 L 11/30/24 05:53: WBC 6.8, RBC 4.56 L, Hgb 15.0, Hct 43.6, MCV 95.6 H, MCH 32.9 H, MCHC 34.4, RDW Std Deviation 45.1 H, RDW Coeff of Edwige 12.7, Plt Count 138 L, MPV 11.2, Immature Gran % (Auto) 0.300, Neut % (Auto) 73.2 H, Lymph % (Auto) 17.4 L, [place] % (Auto) 7.8, Eos % (Auto) 1.2, Baso % (Auto) 0.1, Absolute Neuts (auto) 5.0, Absolute Lymphs (auto) 1.18, Nucleated RBC % 0, PT 36.2 H, INR 3.5 Micro: Microbiology 11/29/24 03:28 Mucosa - Nose SARS-CoV-2, Influenza & RSV (PCR) - Final Physical Exam Const alert and no apparent distress HEENT head/scalp atraumatic and moist oral mucous membranes Resp normal respiratory effort, no retractions, no use of accessory muscles and clear to auscultation bilaterally Cardio regular rate, regular rhythm, S1 normal heart sound and S2 normal heart sound GI normal to inspection, nondistended, normoactive bowel sounds and soft to palpation Assessment & Plan Assessment/Plan (1) Compression fracture of body of thoracic vertebra: PLAN: 2/2 mechanical fall. T3, T7 and T12. Most pronounced at T7 Pain control. 25-OH d level 29.2. Replace w ergocalciferol 50k units weekly x8 weeks. ZAHIDA Allen, tentative plan is for patient to do therapy, and if he is still having pain, then he can follow up a later time to see if he could be a candidate for kyphoplasty. Family concerned about narcotics (which he has not received. Schedule acetaminophen. Continue lidocaine patch. (2) Debility: PLAN: baseline debility 2/2 Parkinson's disease, now more pronounced give the thoracic vertebrae fractures PT OT. Pt max assist with therapy. Family able to take him back home on 12/01 PLAN: Plan VTE prophylaxis: SCDs. Charges/Coding Visit Charges Inpatient E&M: 49696 Subs Hosp L2
[2024-11-30 08:00] VITALS: BP 130/71; PULSE 58; RESP 18; TEMP 36.8; O2SAT 94
[2024-11-30 08:05] LABS: ALB/GLOB Ratio 1.2 RATIO (0.9-2.4); AST(SGOT) 20 U/L (<=37); Alanine Aminotransfer ALT/SGPT 16 U/L (<=46); Albumin, Serum 3.4 g/dL (3.4-4.8); Alkaline Phosphatase 57 U/L (40-129); Anion Gap 9 (5-15); BUN 12 mg/dL (4-19); BUN/Creat Ratio 18.8 RATIO (10-20); Calcium,Total 8.7 mg/dL (7.6-11.0); Carbon Dioxide 22.9 mmol/L (21.0-32.0); Chloride 107 mmol/L (98-108); Creatinine, Serum 0.66 mg/dL (0.70-1.20); EST Glomerular Filtration Rate 99 (>60); Estimated Creatinine Clearance 94.19 ml/min (50-250); Globulin 2.8 g/dL (2.2-4.2); Glucose 93 mg/dL (70-99); Protein, Total 6.2 g/dL (5.9-8.4); Sodium Level 139 mmol/L (133-145); Total Bilirubin 0.91 mg/dL (0.00-1.30)
--- NOTE | 2024-11-30 08:45 | PCM.CONS.GEN ---
Assessment & Plan Assessment/Plan (1) Age-related osteoporosis with current pathol fracture of vertebra: (2) Wedge compression fracture of T7-T8 vertebra, initial encounter for closed fracture: PLAN: Plan CT scan demonstrates what appears to be an acute T7 compression fracture and this appears to be the etiology for his severe thoracic pain that is functional limitation. His pain remains severe (8?10/10) with activity, though he is experiencing some improvement with multimodal analgesia. Given the persistence of his symptoms and the impact on mobility, T7 kyphoplasty may be considered to provide pain relief and improve function. On coumadin: INR today 11/30: 3.5. His INR will need to be normalized before kyphoplasty can be done safely. Bridging can be considered if medically appropriate. Bridging medication will also need to be held as appropriate. Continue multimodal medication regimen Due to his blood thinning status, if conservative efforts are able to assist in his pain and he is able to safely be discharged, the kyphoplasty consideration can be continued as an outpatient. If his functional status is reasonable he does not need to remain inpatient for the kyphoplasty. HPI Consult Data Date of Consult: 11/30/24 HPI Narrative Reason for Consultation: Back pain HPI Narrative: Mr. Gill has a complex medical history, including Parkinson?s disease, prior stroke, venous thromboembolism on chronic Coumadin therapy, coronary artery disease status post coronary stents, who presents for pain management evaluation due to severe back pain following a fall one week ago. The pain is in the thoracic area and worse on the right side. DOes not radiate to the lower extremities. His pain remains severe (8?10/10) with activity, though he is experiencing some improvement with multimodal analgesia. It is sharp in quality. The patient reports that pain began immediately after the fall and has progressively worsened, especially with ambulation or any activity. Several days later, he experienced a secondary fall, which significantly exacerbated his pain. Due to his Parkinson?s disease, he has some difficulty providing a detailed history, but he emphasizes that his pain is severe and debilitating. At baseline, the patient was only able to ambulate a few blocks due to his Parkinson?s. However, after these falls, his pain has worsened to the point that he now has significant difficulty ambulating even short distances or moving. This led to hospital admission, where CT imaging revealed three potential vertebral compression fractures, with an acute-appearing T7 compression fracture. He describes his pain as sharp and constant, waxing and waning in severity, with an intensity of 8?10/10 during activity. The pain is significantly worsened with movement, weight-bearing, and ambulation, while rest and multimodal analgesia have provided some relief PFSH Medical History Weakness Pericardial effusion Foreign body in heart Presence of IVC filter DVT (deep venous thrombosis) Parkinson disease Home Medications ?Medication ?Instructions ?Recorded ?Last Taken ?Type warfarin 6 mg tablet 7 mg PO DAILY blood thinner 04/10/21 04/10/21 History entacapone 200 mg tablet (Comtan) 200 mg PO Q4H parkinsons 04/11/21 Unknown History carbidopa 25 mg-levodopa 100 mg 2 tab PO Q4H parkinsons 10/03/22 Unknown History tablet tamsulosin 0.4 mg capsule 0.4 mg PO DAILY PRN urinary 11/29/24 Unknown History retention Allergy/AdvReac Type Severity Reaction Status Date / Time No Known Allergies Allergy Verified 10/03/22 13:04 Family History Mother , CAD: of a heart attack at approximately age 72 CAD (coronary artery disease) Father No problems noted. Surgical History History of heart surgery (~04/12/21) History of bilateral hip replacements Total knee replacement status Social History household members: spouse Smoking Status: Never smoker alcohol intake: never substance use type: does not use caffeine: No ROS ROS Narrative Admission Review of Systems: CONSTITUTIONAL: No weight loss, fever, chills, + weakness or fatigue. HEENT: Eyes: No visual loss, blurred vision, double vision or yellow sclerae. Ears, Nose, Throat: No hearing loss, sneezing, congestion, runny nose or sore throat. SKIN: No rash or itching, lesions, wounds. CARDIOVASCULAR: No chest pain, chest pressure or chest discomfort, palpitations, edema, orthopnea, syncopal events. RESPIRATORY: No shortness of breath, cough or sputum, wheezing, hemoptysis. GASTROINTESTINAL: No anorexia, nausea, vomiting or diarrhea, abdominal pain, melena, BRBPR. GENITOURINARY: No dysuria, frequency, urgency or retention. NEUROLOGICAL: + Underlying Parkinson's disease. No headache, dizziness, syncope, paralysis, ataxia, numbness or tingling in the extremities, focal weakness, change in bowel or bladder control, seizure. MUSCULOSKELETAL: + muscle, back pain, joint pain or stiffness. HEMATOLOGIC: No anemia. + Easy bleeding/bruising. LYMPHATICS: No enlarged nodes. No history of splenectomy. PSYCHIATRIC: No history of depression or anxiety. ENDOCRINOLOGIC: No reports of sweating, cold or heat intolerance. No polyuria or polydipsia. ALLERGIES: No history of asthma, hives, eczema or rhinitis. Physical Exam Narrative Tenderness over the thoracic spine. Pain with percussion over the thoracic spine in the T7 area. Motor strength 4+/5 in lower extremities. Sensation appears intact Const alert General Appearance: cooperative Lab / Micro Data 11/30/24 05:53 11/30/24 05:53 Labs: Laboratory Results - last 24 hr 11/29/24 03:20: Vitamin D 25-Hydroxy 29.2 L 11/30/24 05:53: WBC 6.8, RBC 4.56 L, Hgb 15.0, Hct 43.6, MCV 95.6 H, MCH 32.9 H, MCHC 34.4, RDW Std Deviation 45.1 H, RDW Coeff of Edwige 12.7, Plt Count 138 L, MPV 11.2, Immature Gran % (Auto) 0.300, Neut % (Auto) 73.2 H, Lymph % (Auto) 17.4 L, [place] % (Auto) 7.8, Eos % (Auto) 1.2, Baso % (Auto) 0.1, Absolute Neuts (auto) 5.0, Absolute Lymphs (auto) 1.18, Nucleated RBC % 0, PT 36.2 H, INR 3.5, Sodium 139, Potassium 4.0, Chloride 107, Carbon Dioxide 22.9, Anion Gap 9, BUN 12, Creatinine 0.66 L, Estim Creat Clear Calc 94.19, Est GFR (MDRD) Non-Af 99, BUN/Creatinine Ratio 18.8, Glucose 93, Calcium 8.7, Total Bilirubin 0.91, AST 20, ALT 16, Alkaline Phosphatase 57, Total Protein 6.2, Albumin 3.4, Globulin 2.8, Albumin/Globulin Ratio 1.2
[2024-11-30] MEDS: Gabapentin 100 MG Capsule PO ×3 (08:46→16:54)
--- NOTE | 2024-11-30 09:18 | CASEMGMT ---
Discharge Planning A list of?SNF providers including quality and resource use data and consistent with the patient's preferred geographic region, medical needs, and insurance network was created in [employer] Guide.? This list was provided to the SW. Nidhi Abbasi Discharge Planning Asst.
[2024-11-30] MEDS: Lidocaine 5% Patch 3 PATCH TOPICAL (11:21)
[2024-11-30 13:58] LABS: Bedside Glucose 105 mg/dL (74-106)
[2024-11-30 14:46] VITALS: BP 108/75; PULSE 86; RESP 18; TEMP 36.8; O2SAT 92
[2024-11-30] MEDS: Acetaminophen 500 MG Tablet 1000 MG PO ×2 (14:50→20:45)
[2024-11-30 20:00] VITALS: BP 170/94; PULSE 78; RESP 16; TEMP 36.9; O2SAT 95
--- NOTE | 2024-11-30 20:55 | NURSING ---
pt extremely confused, asking why the is in the room, calling out for his kids, trying to get out of bed, does not reorient well. does not remember his being here today.
--- NOTE | 2024-11-30 20:58 | NURSING ---
pt hallucinating and pointing at things in the room that are not there.
[2024-11-30 21:00] VITALS: O2SAT 95
[2024-12-01 02:00] VITALS: BP 170/88; PULSE 60; RESP 16; TEMP 36.6; O2SAT 94
[2024-12-01 05:15] VITALS: BMI 23.2
[2024-12-01] MEDS: Carbidopa/Levodopa 25/100 Tablet PO ×3 (05:49→13:14)
[2024-12-01] MEDS: Acetaminophen 500 MG Tablet 1000 MG PO ×2 (05:49→13:14)
[2024-12-01 06:13] VITALS: BP 155/79; PULSE 69; RESP 16; TEMP 37.7; O2SAT 92
[2024-12-01 07:44] VITALS: BP 143/77; PULSE 74; RESP 18; TEMP 36.6; O2SAT 96
--- NOTE | 2024-12-01 08:19 | PCM.PN.HOSP ---
Reason for Visit Reason for Visit: Diagnoses Age-related osteoporosis with current pathological fracture, vertebra(e), initial encounter for fracture (11/29/24) Other malaise (11/29/24) Wedge compression fracture of unspecified thoracic vertebra, initial encounter for closed fracture (11/29/24) Wedge compression fracture of T7-T8 vertebra, initial encounter for closed fracture (11/29/24) Subjective Subjective Able to tell me that he feels well after several minutes of slowly waking up. Objective Data Objective Data Vital Signs: Vital Signs Temp Pulse Resp BP Pulse Ox O2 Del Method 36.6 C 74 18 143/77 H 96 Room Air 12/01/24 07:44 12/01/24 07:44 12/01/24 07:44 12/01/24 07:44 12/01/24 07:44 12/01/24 07:44 Oxygen Delivery Method Room Air Weight: 82.1 kg Body Mass Index (BMI) 23.2 Intake & Output: Intake and Output for Last 24 Hours 11/29/24 11/30/24 12/01/24 23:59 23:59 23:59 Intake Total 1416.67 / 1416.67 800 / 800 Output Total 300 / 500 1350 / 1650 1800 / 1800 Balance 1116.67 / 916.67 -550 / -850 -1800 / -1800 Lab / Micro Data 11/30/24 05:53 11/30/24 05:53 Labs: Laboratory Results - last 24 hr 11/30/24 11:16: POC Glucose 105 Micro: Microbiology 11/29/24 03:28 Mucosa - Nose SARS-CoV-2, Influenza & RSV (PCR) - Final Physical Exam Const Constitutional Narrative: Patient was sleeping and I did wake him but he was very slow to awake. His mouth was agape and he was unable to close it first and when he would talk with his mouth agape it would be indecipherable. Came back approximately 1050 minutes later and he was sitting up in the chair and more awake and talking though his speech was slurred but much more comprehensible. Assessment & Plan Assessment/Plan (1) Compression fracture of body of thoracic vertebra: PLAN: 2/2 mechanical fall. T3, T7 and T12. Most pronounced at T7 Pain control. 25-OH d level 29.2. Replace w ergocalciferol 50k units weekly x8 weeks. ZAHIDA Allen, tentative plan is for patient to do therapy, and if he is still having pain, then he can follow up a later time to see if he could be a candidate for kyphoplasty. Family concerned about narcotics (which he has not received. Schedule acetaminophen. Continue lidocaine patch. (2) Debility: PLAN: baseline debility 2/2 Parkinson's disease, now more pronounced give the thoracic vertebrae fractures PT OT. Pt max assist with therapy. Family able to take him back home on 12/01 with home health care PLAN: Plan VTE prophylaxis: SCDs.
[2024-12-01 08:30] VITALS: RESP 18; O2SAT 96
[2024-12-01] MEDS: Lidocaine 5% Patch 3 PATCH TOPICAL (08:41)
[2024-12-01] MEDS: Gabapentin 100 MG Capsule PO ×2 (08:41→13:15)
--- NOTE | 2024-12-01 10:39 | PCM.DC.SUM ---
Providers Date of Admission: 11/29/24 Primary Care Physician: Dr. Joss Heredia MD Consultations 11/29/24 14:24 Consult: Pain Management Routine Consulting Provider: Octavio Dhaliwal Reason for Consult: thoracic vertebral fractures. EMERGENT Consult: No Notified: No Date Notified: 11/29/24 Time Notified: 14:25 11/29/24 16:54 Consult: Pain Management Routine Consulting Provider: Octavio Dhaliwal Reason for Consult: fx - pain control EMERGENT Consult: No Notified: Yes Date Notified: 11/29/24 Time Notified: 16:55 Method of Notification: office Reason For Visit: FALL, THORACIC COMPRESSION FXS Diagnosis Discharge Diagnosis (1) Compression fracture of body of thoracic vertebra: Status: Acute Code(s): S22.000A - Wedge compression fracture of unspecified thoracic vertebra, initial encounter for closed fracture Plan: 2/2 mechanical fall. T3, T7 and T12. Most pronounced at T7 Pain control. 25-OH d level 29.2. Replace w ergocalciferol 50k units weekly x8 weeks. ZAHIDA Allen, tentative plan is for patient to do therapy, and if he is still having pain, then he can follow up a later time to see if he could be a candidate for kyphoplasty. Family concerned about narcotics (which he has not received. Schedule acetaminophen. Continue lidocaine patch. (2) Debility: Status: Acute Code(s): R53.81 - Other malaise Plan: baseline debility 2/2 Parkinson's disease, now more pronounced give the thoracic vertebrae fractures PT OT. Pt max assist with therapy. Family able to take him back home on 12/01 with home health care Plan VTE prophylaxis: SCDs. Medications at Discharge Home Medications warfarin 6 mg tablet 7 mg PO DAILY blood thinner 04/10/21 entacapone 200 mg tablet (Comtan) 200 mg PO Q4H parkinsons 04/11/21 carbidopa 25 mg-levodopa 100 mg tablet 2 tab PO Q4H parkinsons 10/03/22 tamsulosin 0.4 mg capsule 0.4 mg PO DAILY PRN urinary retention 11/29/24 acetaminophen 500 mg tablet 1,000 mg (2 x 500 mg) PO Q8 #0 tabs 12/01/24 ergocalciferol (vitamin D2) 1,250 mcg (50,000 unit) capsule (Vitamin D2) 1,250 mcg PO QWEEK #8 caps 12/01/24 lidocaine 4 % topical patch 1 patch topical DAILY PRN pain #30 ea 12/01/24 Hospital Course Operations None Procedures None Summary of Care Provided Minutes Spent on Discharge: 32 Hospital Course: Patient presents after a fall. Patient had several thoracic vertebral fracture with the most pronounced being at T7. Patient was seen by Dr. Allen of pain management. Recommended outpatient evaluation to see if he still having ongoing pain issues that he may be amenable to kyphoplasty at a later point., Ibis is that the patient is on warfarin. Patient's course was uncomplicated though today when I saw him he was very slow to wake up. His mouth was gave and he had difficulty closing that. On exam he had impaired vertical saccades as well as saccades with lateral gaze as well. I did review his neurology note from April 10, 2024 and patient is diagnosed as idiopathic Parkinson disease. Patient does not have much in the way of tremor. Recommend patient follow-up with his neurology services outpatient. Rest of the patient as well as his granddaughter to be concerned that maybe perhaps has progressive supranuclear palsy. Told him that that would be more of neurology diagnosis and did not feel that he has defer to their recommendations but ultimately if he has PSP versus Parkinson's although diabetic changes long-term management. Patient is very debilitated max assist to but family feels comfortable with patient going home patient will be discharged home with home health care services. Family is very concerned about narcotic so he will not be receiving any narcotics upon discharge. Physical Exam Const Constitutional Narrative: Impaired vertical and lateral saccades of his eyes. Weight / BMI Weight Weight: 82.1 kg Body Mass Index (BMI) 23.2 ABG / Lab / Microbiology Data 11/30/24 05:53 11/30/24 05:53 Laboratory: Laboratory Results - last 24 hr 11/30/24 11:16: POC Glucose 105 Microbiology: Microbiology 11/29/24 03:28 Mucosa - Nose SARS-CoV-2, Influenza & RSV (PCR) - Final D/C Instructions Discharge Diet: No restrictions DC O2, CPAP, BIPAP Needs Home O2 Discharge instructions: No Meaningful Use Info Meaningful Use Meaningful Use Diagnoses (Choose all that apply): None applicable Ischemic Stroke Statin Dosing Therapy Reference: STATIN DOSE THERAPY REFERENCE: * Patients > 75 years receive moderate or high dose statin therapy. * Patients 75 years or YOUNGER should receive HIGH intensity statin dose unless contraindicated. You will be required to document reason for non-treatment if statin daily dose does not meet guidelines. HIGH DOSE STATIN THERAPY DAILY Atorvastatin > than or = to 40 mg Rosuvastatin > than or = to 20 mg Amlodipine + Atorvastatin > than or = to 2.5/40 mg Ezetimibe + Simvastatin 10/80 mg Simvastatin 80mg Discharge Plan Admission Admit Date/Time: 11/29/24 06:15 Primary Reason for Your Visit: thoracic vertebral fractures. Attending Provider: Flako Simeon Primary Care Provider: Joss Heredia Consulting Providers: Stephany Orozco; Octavio Dhaliwal Instructions Additional Instructions / Restrictions: Follow up with Dr. Allen (pain management) in 2-4 weeks if you are still having back pain. He will evaluated to determine if you would benefit from kyphoplasty to one of your fractured vertebrae. Discharge Orders/Prescriptions Prescriptions: New acetaminophen 500 mg Tablet 1,000 mg PO Q8 Qty: 0 0RF lidocaine 4 % adhesive patch,medicated 1 patch topical DAILY PRN (Reason: pain) Qty: 30 0RF Rx Instructions: over the counter, no prescription required. ergocalciferol (vitamin D2) [Vitamin D2] 1,250 mcg (50,000 unit) capsule 1,250 mcg PO QWEEK Qty: 8 0RF Continued warfarin 6 mg tablet 7 mg PO DAILY Patient Comments: Take 1 tablet by mouth daily WITH 3MG TAB TO EQUAL 9MG entacapone [Comtan] 200 mg Tablet 200 mg PO Q4H Rx Instructions: take 4x/day with levodopa/carbidopa carbidopa-levodopa 25-100 mg tablet 2 tab PO Q4H Patient Comments: take 2 tablets by mouth six times a day AT 4:30-5AM, 9AM, 1PM, 5-6PM, AND MIDNIGHT tamsulosin 0.4 mg capsule 0.4 mg PO DAILY PRN (Reason: urinary retention) Referrals / Follow Up: Srikanth Allen MD [Med Staff - Active Staff] - Within 2 Weeks Joss Heredia MD [Primary Care Provider] - Within 2 Weeks Disposition Disposition (needs filled in before D/C Order can be placed): Home Health Service Charges/Coding Visit Charges Inpatient E&M: 77552 Disch Hosp >30min
--- NOTE | 2024-12-01 10:57 | CASEMGMT ---
Addendum entered by Gracia Snell 12/01/24 12:18: ARLINE ROLNO into pt room, pt eyes closed but awakened, provided with private duty list. Addendum entered by Gracia Snell 12/01/24 12:04: TC to pt to make aware that [facility] for services. She also asks about services for someone to come and sit with pt while she is at the store or has things that need done. She is aware that ARLINE ROLON will print a private duty list for her. She denies further needs at this time. Addendum entered by Gracia Snell 12/01/24 11:52: Pt has been accepted by [facility]. Placed on dc plan. Addendum entered by Gracia Snell 12/01/24 11:37: Received notification of 's HH choices: [facility]. [facility]. [facility] Referral sent to [facility] via [employer] at this time. Original Note: ARLINE ROLON into pt room, pt sitting up in chair with granddtr at bedside. Pt states he is still planning on going home and is agreeable to HHC. He would like his to be called to select the agency she wants. TC to pt , she is aware how the therapy session went today. She states they do still plan on taking pt home. She is aware that a gait belt is being recommended for at home. She [facility]. Discussed having skilled HHC to bridge the gap of [facility] services. She would like to wait until noon to give time for the [facility] to [facility] back. If they have not called back she will proceed with HHC through [facility]. She would like the list of options to be texted to her. A list of HHC providers including quality and resource use data and consistent with the patient?s preferred geographic region, medical needs, and insurance network were provided via the [employer] Guide Link. Discussed SN, PT, OT and [employer] ASSISTANT for the referral. Pt denies further needs at this time. ARLINE ROLON to follow.
[2024-12-01 12:06] VITALS: BP 115/77; PULSE 85; RESP 18; TEMP 36.2; O2SAT 95
[2024-12-01 13:53] VITALS: BP 114/75; PULSE 80; RESP 22; TEMP 36.6; O2SAT 97
--- NOTE | 2024-12-01 16:06 | NURSING ---
All documentation by nursing informatics clinical analyst Elicia Sarabia reviewed by professional nursing assistant Apoorva GARCIA, RN.
== END 2024-12-01 14:49 | disposition home health service (06) | DRG 543 ==
LOC: ED 06:11 → MS3 06:34
PROVIDERS: Admitting Provider Family Medicine; Emergency Provider Emergency Medicine; PCP Family Medicine
DX: M80.08XA Age-related osteoporosis with current pathological fracture, vertebra(e), initial encounter for fracture (principal); S22.060A Wedge compression fracture of T7-T8 vertebra, initial encounter for closed fracture; D68.51 Activated protein C resistance; N13.8 Other obstructive and reflux uropathy; G20.A1 Parkinson's disease without dyskinesia, without mention of fluctuations; D69.6 Thrombocytopenia, unspecified; W18.30XA Fall on same level, unspecified, initial encounter; I25.10 Atherosclerotic heart disease of native coronary artery without angina pectoris; Z86.718 Personal history of other venous thrombosis and embolism; Z86.73 Personal history of transient ischemic attack (TIA), and cerebral infarction without residual deficits; N40.1 Benign prostatic hyperplasia with lower urinary tract symptoms; R53.81 Other malaise; Z79.899 Other long term (current) drug therapy; Z96.643 Presence of artificial hip joint, bilateral; Z96.659 Presence of unspecified artificial knee joint; Y92.89 Other specified places as the place of occurrence of the external cause; Z79.01 Long term (current) use of anticoagulants; Z95.5 Presence of coronary angioplasty implant and graft
CPT/HCPCS: 36415; 70450; 71260; 72125; 72128; 72131; 73521; 74177; 80053; 81001; 82306; 82962; 85025; 85027; 85610; 87631; 93005; 94668; 97116; 97162; 97166; 97530; 97535; 99285; Q9967; A4216; J2405

== ENCOUNTER 2024-12-07 05:47 | Emergency (ER) | payer OTHER, SELFPAY ==
[2024-12-07 05:48] VITALS: BP 149/83; PULSE 72; RESP 18; TEMP 36.4; O2SAT 93; BMI 23.1
--- NOTE | 2024-12-07 05:59 | EDS_ITS ---
HPI History of Present Illness Chief Complaint: Complaint Narrative Narrative: 74-year-old male past medical history of Parkinson disease, recent fall with compression fracture of T7-T8 vertebra presents with urinary retention since yesterday evening. He and his family relate history that his last urination was around 8 PM yesterday evening, approximately 10 hours ago. It was only a small amount. His last urination was or induration color according to his family. They relate history that he was hospitalized for his compression fracture, and he also experienced constipation which resolved on Friday, approximately 2 days ago. This being contact center consultant on Friday, he has not had a good urination since then. Of note, he is on a blood thinner and has history of factor V Leiden. PFSH PFS Medical History Weakness Pericardial effusion Foreign body in heart Presence of IVC filter DVT (deep venous thrombosis) Parkinson disease Home Medications ?Medication ?Instructions ?Recorded ?Last Taken ?Type warfarin 6 mg tablet 7 mg PO DAILY blood thinner 04/10/21 04/10/21 History entacapone 200 mg tablet (Comtan) 200 mg PO Q4H belen sons 04/11/21 Unknown History carbidopa 25 mg-levodopa 100 mg 2 tab PO Q4H parkinson s 10/03/22 Unknown History tablet tamsulosin 0.4 mg capsule 0.4 mg PO DAILY PRN urinary 11/29/24 Unknown History retention acetaminophen 500 mg tablet 1,000 mg (2 x 500 mg) PO Q 8 #0 tabs 12/01/24 Unknown Rx ergocalciferol (vitamin D2) 1,250 1,250 mcg PO QWEEK # 8 caps 12/01/24 Unknown Rx mcg (50,000 unit) capsule (Vitamin D2) lidocaine 4 % topical patch 1 patch topical DAILY PRN pain #30 12/01/24 Unknown Rx ea Allergy/AdvReac Type Severity Reaction Status Date / Time No Known Allergies Allergy Verified 10/03/22 13:04 Family History Mother , CAD: of a heart attack at approximately age 72 CAD (coronary artery disease) Father No problems noted. Surgical History History of heart surgery (~04/12/21) History of bilateral hip replacements Total knee replacement status Social History household members: spouse Smoking Status: Never smoker alcohol intake: never substance use type: does not use caffeine: No ROS ROS ED ROS Narrative Review of systems positive for urinary retention and suprapubic discomfort. No fevers or chills, no nausea or vomiting. Recent constipation. Last urination was only a small amount of dribbling, and appeared orange to red in color. EXAM Physical Exam Narrative Exam Narrative: Afebrile. Vital signs noted. Nontoxic-appearing. Cardiovascular examination reveals a regular rate and rhythm. Lungs are clear to auscultation bilaterally. Abdomen is soft and nontender with mild suprapubic discomfort but no noted b ladder distention on palpation. Positive bowel sounds. No guarding or rebound. Neurological examination consistent with Parkinson's. Nonfocal however, nonlateralizing. Const Vital Signs: 12/07/24 05:48 Temperature 97.6 F L Temperature Source Axillary Pulse Rate 72 Respiratory Rate 18 Blood Pressure 149/83 H Blood Pressure Mean 105 Pulse Ox 93 Oxygen Delivery Method Room Air MDM MDM MDM Narrative Medical decision making narrative: Differential diagnosis includes but not limited to urinary retention secondary to clot retention versus UTI versus cystitis versus urinary retention secondary to BPH. He may also be dehydrated and not producing a large amount of urine. Bladder scan was performed by RN and there was only approximately 246 mL of urine in the bladder. His did state that he spent time on the toilet trying to urinate but was unable to do so. Three-way Wall was inserted and bladder irrigated. I will check his BUN and creatinine to see if he has dehydration or increase in his creatinine consistent with more bladder outlet obstruction. No feel he needs emergent imaging currently. I will also check a CBC as well as the BMP. RN did insert Wall catheter, and there was not a large amount of urine. His brief was saturated with urine, however. Wall catheter will be removed as there is no evidence of clot. WBC count normal at 7.4 in review of laboratories, hemoglobin normal at 14.9, platelet count normal at 210. BMP shows BUN of 23 with creatinine 1.06. Glucose normal at 93. Urinalysis obtained and white cells 0-5 with leukocyte 25 and nitrites negative. I do not feel antibiotics are indicated. However, there is 2+ bacteria. I will send for culture as this was most likely a catheterized specimen. At this point in time, I do not feel that he is in urinary retention, nor do I feel that he requires hospital admission. Disposition is discharged home in stable condition. History & Record Review Discussion w/independent historian: Patient and Family Additional record(s) reviewed:: Prior inpatient record (Admitted on the and discharged on the of this month, approximately 6 days ago) and Prior ED visit Lab Data Attestation: I reviewed the patient's lab results. Labs: Laboratory Results - last 24 hr 12/07/24 12/07/24 06:15 06:30 WBC 7.4 RBC 4.54 L Hgb 14.9 Hct 44.4 MCV 97.8 H MCH 32.8 H MCHC 33.6 RDW Std Deviation 45.5 H RDW Coeff of Edwige 12.7 Plt Count 210 MPV 10.4 Immature Gran % (Auto) 0.500 Neut % (Auto) 71.3 H Lymph % (Auto) 18.9 L [place] % (Auto) 8.2 Eos % (Auto) 0.7 Baso % (Auto) 0.4 Absolute Neuts (auto) 5.3 Absolute Lymphs (auto) 1.40 Nucleated RBC % 0 PT 28.9 H INR 2.7 Sodium 138 Potassium 3.7 Chloride 103 Carbon Dioxide 23.6 Anion Gap 12 BUN 23 H Creatinine 1.06 Estim Creat Clear Calc 70.83 Est GFR (MDRD) Non-Af 74 BUN/Creatinine Ratio 21.6 H Glucose 93 Calcium 8.9 Urine Color [place] Urine Clarity Clear Urine pH 5.0 Ur Specific [place] 1.020 Urine Protein 30 H Urine Glucose (UA) Normal Urine Ketones 15 H Urine Occult Blood 25 H Urine Nitrite Negative Urine Bilirubin 1 H Urine Urobilinogen 1 H Ur Leukocyte Esterase 25 H Urine RBC 5-10 SEEN Urine WBC 0-5 SEEN Ur Squamous Epith Cells 0-5 SEEN Ur Transition Epith Cell 0-5 SEEN Ur Renal Epithelial Cell 0-5 SEEN Amorphous Sediment 1+ Urine Bacteria 2+ Urine Mucus 3+ Discharge Plan Triage Chief Complaint: Complaint ED Provider: Trung Vital Dx/Rx/DC Orders Clinical Impression: Decreased urination, Parkinsons disease, Dysuria Instructions: ED Dysuria, Uncertain Cause (Adult), ED Pain, Acute, Uncertain Cause Prescriptions: No Action warfarin 6 mg tablet 7 mg PO DAILY Patient Comments: Take 1 tablet by mouth daily WITH 3MG TAB TO EQUAL 9MG entacapone [Comtan] 200 mg Tablet 200 mg PO Q4H Rx Instructions: take 4x/day with levodopa/carbidopa carbidopa-levodopa 25-100 mg tablet 2 tab PO Q4H Patient Comments: take 2 tablets by mouth six times a day AT 4:30-5AM, 9AM, 1PM, 5-6PM, AND MIDNIGHT tamsulosin 0.4 mg capsule 0.4 mg PO DAILY PRN (Reason: urinary retention) acetaminophen 500 mg Tablet 1,000 mg PO Q8 Qty: 0 0RF lidocaine 4 % adhesive patch,medicated 1 patch topical DAILY PRN (Reason: pain) Qty: 30 0RF Rx Instructions: over the counter, no prescription required. ergocalciferol (vitamin D2) [Vitamin D2] 1,250 mcg (50,000 unit) capsule 1,250 mcg PO QWEEK Qty: 8 0RF Primary Care Provider: Joss Heredia Referrals: Joss Heredia MD [Primary Care Provider] - 3-5 Days if not improving Activity Restrictions/Additional Instructions: Return with inability to urinate, new or worsening symptoms. Print Language: [place] Disposition Disposition: Home, Self Care
[2024-12-07 06:23] LABS: Absolute Neutrophil Count 5.3 X10^3/uL (2.0-7.7); Basophil# 0.03 X10^3/uL; Basophil% 0.4 % (0-1); Eosinophil# 0.05 X10^3/uL; Eosinophils% 0.7 % (0-5); Hematocrit 44.4 % (40-54); Hemoglobin 14.9 g/dL (13.0-16.5); Lymphocyte % 18.9 % (19-41); Mean Corp Hgb Conc 33.6 g/dL (32-36); Mean Corpuscular Hgb 32.8 pg (27.0-32.0); Mean Corpuscular Volume 97.8 fL (80-94); Mean Platelet Vol. 10.4 fl (6.2-12.0); Monocyte# 0.61 X10^3/uL; Monocyte% 8.2 % (0-10); NRBC Flagged by Analyzer 0 % (0-5); Neutrophil # 5.27 X10^3/uL (2.7-7.7); Neutrophil % 71.3 % (47-70); Platelet Count 210 K/mm3 (150-450); RBC Distribution Width CV 12.7 % (11.6-14.6); RBC Distribution Width SD 45.5 fl (35.1-43.9); Red Blood Count 4.54 M/mm3 (4.6-6.2); White Blood Count 7.4 K/mm3 (4.4-11.0)
[2024-12-07 06:35] LABS: International Normalized Ratio 2.7; Prothrombin Time (Protime)PT. 28.9 SECONDS (11.7-14.9)
[2024-12-07 06:46] LABS: Color, Urine Amber (Yellow); Glucose, Dipstick Normal (Normal); Ketone-Dipstick 15 mg/dl (Negative); Leukocyte Esterase-Dipstick 25 /ul (Negative); Nitrite-Dipstick Negative (Negative); Occult Blood-Urine 25 /ul (Negative); Protein-Dipstick 30 mg/dl (Negative); Urine Clarity Clear (Clear); Urine Urobilinogen 1 mg/dl (Normal)
[2024-12-07 06:51] LABS: Anion Gap 12 (5-15); BUN 23 mg/dL (4-19); BUN/Creat Ratio 21.6 RATIO (10-20); Calcium,Total 8.9 mg/dL (7.6-11.0); Carbon Dioxide 23.6 mmol/L (21.0-32.0); Chloride 103 mmol/L (98-108); Creatinine, Serum 1.06 mg/dL (0.70-1.20); EST Glomerular Filtration Rate 74 (>60); Estimated Creatinine Clearance 70.83 ml/min (50-250); Glucose 93 mg/dL (70-99); Potassium 3.7 mmol/L (3.3-5.1); Sodium Level 138 mmol/L (133-145)
[2024-12-07 06:55] LABS: Urine Bilirubin Dipstick 1 mg/dL (Negative)
[2024-12-07 06:56] LABS: Amorphous Sediment 1+; Bacteria 2+ /hpf (None Seen); Mucous, Urine 3+ /hpf (<or=2+); Red Blood Cells-Urine 5-10 SEEN /hpf (0-5); Renal Epithelial Cells 0-5 SEEN /hpf (0-5); Squamous Epithelial Cells - UA 0-5 SEEN /hpf (0-5); Transitional Epithelial - Ur 0-5 SEEN /hpf (0-5); White Blood Cells 0-5 SEEN /hpf (0-5)
[2024-12-07 07:26] VITALS: BP 108/78; PULSE 64; RESP 18; TEMP 37.1; O2SAT 99
== END 2024-12-07 07:27 | disposition home or self-care (01) ==
PROVIDERS: Emergency Provider Emergency Medicine; PCP Family Medicine; Visit Provider Emergency Medicine
DX: R39.198 Other difficulties with micturition (principal); G20.A1 Parkinson's disease without dyskinesia, without mention of fluctuations; R30.0 Dysuria; Z96.643 Presence of artificial hip joint, bilateral
CPT/HCPCS: 51702; 80048; 81001; 85025; 85610; 87086; 99284; A4216

== ENCOUNTER 2024-12-09 05:56 | Emergency (ER) | payer OTHER, SELFPAY ==
[2024-12-09 05:57] VITALS: BP 139/83; PULSE 68; RESP 17; TEMP 36.9; O2SAT 98; BMI 22.5
--- NOTE | 2024-12-09 06:16 | CT_ITS ---
PROCEDURE: CT of the abdomen/pelvis with IV contrast. 12/09/2024 REASON FOR EXAM: Abdominal pain. Constipation for 2 weeks. Difficulty urinating. TECHNIQUE: After the administration of 87 cc Isovue 370, contiguous axial CT images were obtained through the abdomen/pelvis. Sagittal and coronal reformats were created. One or more dose reduction techniques were used (e.g., Automated exposure control, adjustment of the mA and/or kV according to patient size, use of iterative reconstruction technique. RADIATION DOSE SUMMARY: DLP: 912.06 mGycm COMPARISON: 11/29/2024 FINDINGS: The bones are osteopenic with degenerative changes in the spine. Chronic appearing mild height loss of L5. There is a worsened [id number] compression deformity of the L1 vertebral body, compared to 11/29/2024. There is worsened posterior cortical retropulsion of T12, and at least moderate central spinal canal narrowing. Partially included bilateral total hip arthroplasties are intact. Mild degenerative change left hip joint. Heart is not enlarged. No sizable pericardial effusion. Lower ribs intact. There is dependent atelectasis in the lower lobes. Some scattered calcified granulomas are present in the lower lungs, greatest on the right. Abdominal aorta is tortuous, normal in caliber with a uheo-eo-[id number] amount of atherosclerotic calcification. Small fat containing right inguinal hernia. No large abdominal wall defect. Patchy wall thickening of the stomach may be due to lack of distention versus peristalsis multiple calcified gallstones, without definite wall thickening or pericholecystic inflammatory changes. No abnormal dilation of the biliary tree. Portal vein appears patent. The liver, adrenal glands, spleen, and pancreas show no specific abnormality. Similar appearance of an IVC filter. Kidneys are symmetric in size and enhancement. No solid renal mass or obstructive uropathy. Partially exophytic 5 cm cyst inferior lateral right kidney not significantly different. No abnormally dilated bowel segments or free intraperitoneal air. There is some worsened circumferential wall thickening of the mid to distal rectum. Other scattered patchy areas of colonic wall thickening may be due to lack of distention versus peristalsis or chronic diverticular disease. No evidence of acute appendicitis. No abdominal/pelvic ascites or adenopathy. No drainable abdominal/pelvic fluid collection. There are some borderline dilated small bowel segments in the lower abdomen/pelvis, measuring up to 2.6 cm. No mesenteric inflammatory changes. A small amount of air density in the anterior urinary bladder may be due to recent instrumentation or catheterization. CT/Abdomen/Pelvis W IV Cont ONLY IMPRESSION: There are some scattered borderline dilated small bowel segments in the lower a bdomen/pelvis, measuring up to 2.6 cm. This could be due to viral gastroenteritis or mild ileus. No free intraperitoneal air. S uggest correlation with clinical exam findings. There is some increased wall thickening of the mid to distal rectum. Although this could be due to lack of distention, other etiologies such as short-segment colitis or proctitis would be differential pos sibilities. Suggest short-term follow-up colonoscopy evaluation. Cholelithiasis without CT evidence of acute cholecystitis. If there is clinica l concern for acute cholecystitis, ultrasound evaluation would be suggested. No evidence of acute appendicitis or obstructive uropathy. Similar simple appe aring partially exophytic 5 cm cyst inferior lateral right kidney. Worsened moderate/severe superior endplate fracture compression deformity of T1 2 compared to 11/29/2024. There is worsened posterior cortical retropulsion of T12, with at least moderate central spinal c anal narrowing. Small fat containing right inguinal hernia. Reading Location: [facility]
[2024-12-09] MEDS: 0.9% Normal Saline (500mL Bag) 500 ML 999 ML IV (06:34)
[2024-12-09 06:41] LABS: Absolute Lymphocyte Count 1.24 X10^3/uL (0.83-4.51); Absolute Neutrophil Count 4.3 X10^3/uL (2.0-7.7); Basophil# 0.01 X10^3/uL; Basophil% 0.2 % (0-1); Eosinophil# 0.03 X10^3/uL; Eosinophils% 0.5 % (0-5); Hematocrit 40.5 % (40-54); Hemoglobin 13.7 g/dL (13.0-16.5); Lymphocyte # 1.24 X10^3/ul (0.83-4.51); Lymphocyte % 20.2 % (19-41); Mean Corp Hgb Conc 33.8 g/dL (32-36); Mean Corpuscular Hgb 33.1 pg (27.0-32.0); Mean Corpuscular Volume 97.8 fL (80-94); Mean Platelet Vol. 10.2 fl (6.2-12.0); Monocyte# 0.57 X10^3/uL; Monocyte% 9.3 % (0-10); NRBC Flagged by Analyzer 0 % (0-5); Neutrophil # 4.27 X10^3/uL (2.7-7.7); Neutrophil % 69.3 % (47-70); Platelet Count 217 K/mm3 (150-450); RBC Distribution Width CV 12.6 % (11.6-14.6); Red Blood Count 4.14 M/mm3 (4.6-6.2); White Blood Count 6.2 K/mm3 (4.4-11.0)
[2024-12-09 06:57] LABS: Lipase 21 U/L (13-75); Magnesium 2.2 mg/dL (1.5-2.2)
--- NOTE | 2024-12-09 06:58 | EX.ED.DYSGE1 ---
HPI History of Present Illness Chief Complaint: Abd Pain Informant: patient and family Narrative Narrative: Patient is a 74-year-old male with past medical history of chronic thrombocytopenia, Factor V Leiden mutation w/ Hx VTE (DVT) s/p IVCF placement, Parkinson's disease, Hx CVA, Chronic venous insufficiency, BPH with obstructive pathology. He was seen here on November 29 secondary to persistent back pain following a fall at home and was found to have thoracic vertebral compression fracture. He was admitted and after few days discharged home. He states along with daughter that has been having difficulty getting around secondary to persistent pain and they has been dealing with constipation and difficulty urinating during this time as well. He was given morphine upon his initial evaluation in the ER but reports he did not receive any while at an inpatient and denies taking any other pain medication other than Tylenol in order to prevent constipation at home. The patient denies any fevers or chills or repeat trauma but with his persistent weakness and difficulty caring for himself he was brought back in for evaluation. [facility] Medical History Weakness Pericardial effusion Foreign body in heart Presence of IVC filter DVT (deep venous thrombosis) Parkinson disease Home Medications ?Medication ?Instructions ?Recorded ?Last Taken ?Type warfarin 6 mg tablet 7 mg PO DAILY blood thinner 04/10/21 04/10/21 History entacapone 200 mg tablet (Comtan) 200 mg PO Q4H parkinsons 04/11/21 Unknown History carbidopa 25 mg-levodopa 100 mg 2 tab PO Q4H parkinsons 10/03/22 Unknown History tablet tamsulosin 0.4 mg capsule 0.4 mg PO DAILY PRN urinary 11/29/24 Unknown History retention acetaminophen 500 mg tablet 1,000 mg (2 x 500 mg) PO Q8 #0 tabs 12/01/24 Unknown Rx ergocalciferol (vitamin D2) 1,250 1,250 mcg PO QWEEK #8 caps 12/01/24 Unknown Rx mcg (50,000 unit) capsule (Vitamin D2) lidocaine 4 % topical patch 1 patch topical DAILY PRN pain #30 12/01/24 Unknown Rx ea Allergy/AdvReac Type Severity Reaction Status Date / Time No Known Allergies Allergy Verified 12/09/24 05:57 Family History Mother , CAD: of a heart attack at approximately age 72 CAD (coronary artery disease) Father No problems noted. Surgical History History of heart surgery (~04/12/21) History of bilateral hip replacements Total knee replacement status Social History household members: spouse Smoking Status: Never smoker alcohol intake: never substance use type: does not use caffeine: No ROS ROS ED Constitutional Constitutional ED: Denies chills or fever(s) Eyes Eyes: Denies blurry vision or change in vision ENT ENT ED: Denies sore throat Cardiovascular Cardiovascular: Denies chest pain Respiratory/Chest Respiratory/Chest: Denies cough or dyspnea Gastrointestinal Gastrointestinal: Reports constipation; Denies abdominal pain, diarrhea, nausea or vomiting Genitourinary Genitourinary ED: Denies dysuria or hematuria Musculoskeletal Musculoskeletal: Reports back pain Integumentary Denies rash Neurologic Neurologic: Reports weakness; Denies headache(s) Hematologic/Lymphatic Hematologic/Lymphatic: Reports easy bleeding and easy bruising EXAM Physical Exam Const Vital Signs: 12/09/24 05:57 Temperature 98.5 F Temperature Source Oral Pulse Rate 68 Respiratory Rate 17 Blood Pressure 139/83 H Blood Pressure Mean 101 Pulse Ox 98 Oxygen Delivery Method Room Air Positive well nourished and well developed General Appearance ED: well developed; Negative for pallor HEENT Reports dry mucous membranes HEENT Narrative: Mucous membranes are mildly dry and tacky No tongue or lip swelling no oral lesions no airway edema or compromise No secondary findings to suggest infection in the posterior pharynx Mouth ED: Yes dry mucous membranes Mouth: dry mucous membranes Eyes PERRL and EOMs intact bilaterally General Eye ED: Negative for scleral icterus Neck supple Neck Narrative: No nuchal rigidity or meningeal signs noted Chest Wall palpation of chest normal Resp normal respiratory effort and clear to auscultation bilaterally Resp Narrative: Breath sounds are diminished throughout but overall clear to auscultation without signs of respiratory distress Cardio regular rate and regular rhythm Rate: other Other Details: Radial and carotid pulses are equal and symmetric GI non-distended and no masses GI Narrative: Abdomen is soft and nondistended with slightly hypoactive bowel sounds. There is mild pain with palpation in the lower abdomen diffusely without voluntary guarding or rigidity. No pulsatile mass or fluid wave. Auscultation: hypoactive bowel sounds Palpation: soft Back/Spine Back/Spine Narrative: No bony deformity or step-off of the thoracic or lumbar spine but there is midline pain palpation consistent with recent diagnosis of compression fracture Extremity normal to inspection Extremity Narrative: No asymmetric edema no pitting edema negative Homans' sign bilaterally Neuro oriented x3, CN's II-XII intact bilaterally and no sensory deficits noted Sensorium / Orientation: alert Psych Psych Narrative: Patient has a flat affect Skin no rashes or lesions noted Skin Narrative: Skin turgor is slightly increased General Skin Exam: Negative for jaundice or pallor MDM MDM MDM Narrative Medical decision making narrative: Patient arrived to the ER with stable vitals and a soft nonsurgical abdomen. Patient and family report that since his fall and vertebral fracture he has been doing unwell at home and they have concern that there may be something else going on causing his fatigue and weakness and therefore he was brought in the hospital for repeat evaluation. In order to rule out findings such as systemic infection UTI acute blood loss anemia acute kidney injury acute pancreatitis or bowel obstruction or intestinal infection such as colitis/diverticulitis I did elect to perform repeat laboratory studies as well as CT scan with IV contrast. Labs revealed no clinically significant findings. CT scan showed no sign of obstruction but did suggest mild ileus which could correlate with his failure to thrive. It showed gallstones without signs of acute cholecystitis but based on his recurrent abdominal symptoms and ultrasound will be obtained to rule out acute cholecystitis as a atypical presentation for his symptoms. As he is unable to perform his ADLs without multiple people/significant help I do not feel that returning home is in his best interest. I discussed the case with patient and family that he needs to be evaluated by social work for potential admission to the hospital and or rehab/halfway placement. Therefore at this time he will be held in the ER as it is a weekday and he is also been recently admitted for evaluation by social work with potential ability to be placed in a facility straight from the emergency department. As those evaluations are still pending the patient will be signed out to the day physician Dr. Renee History & Record Review Discussion w/independent historian: Patient and Family Lab Data Attestation: I reviewed the patient's lab results. Labs: Laboratory Results - last 24 hr 12/09/24 06:33 WBC 6.2 RBC 4.14 L Hgb 13.7 Hct 40.5 MCV 97.8 H MCH 33.1 H MCHC 33.8 RDW Std Deviation 45.0 H RDW Coeff of Edwige 12.6 Plt Count 217 MPV 10.2 Immature Gran % (Auto) 0.500 Neut % (Auto) 69.3 Lymph % (Auto) 20.2 [place] % (Auto) 9.3 Eos % (Auto) 0.5 Baso % (Auto) 0.2 Absolute Neuts (auto) 4.3 Absolute Lymphs (auto) 1.24 Nucleated RBC % 0 PT 29.5 H INR 2.7 Sodium 140 Potassium 4.2 Chloride 106 Carbon Dioxide 25.5 Anion Gap 9 BUN 15 Creatinine 0.83 Estim Creat Clear Calc 87.91 Est GFR (MDRD) Non-Af 92 BUN/Creatinine Ratio 17.4 Glucose 97 Calcium 8.8 Magnesium 2.2 Total Bilirubin 0.63 Direct Bilirubin 0.26 AST 19 ALT < 5 Alkaline Phosphatase 76 Total Protein 6.5 Albumin 3.5 Globulin 3.0 Lipase 21 Radiography Diagnostic Testing: Clinical Impression(s) from Imaging Studies Abdomen/Pelvis CT 12/09/24 06:16 IMPRESSION: There are some scattered borderline dilated small bowel segments in the lower abdomen/pelvis, measuring up to 2.6 cm. This could be due to viral gastroenteritis or mild ileus. No free intraperitoneal air. Suggest correlation with clinical exam findings. There is some increased wall thickening of the mid to distal rectum. Although this could be due to lack of distention, other etiologies such as short-segment colitis or proctitis would be differential possibilities. Suggest short-term follow-up colonoscopy evaluation. Cholelithiasis without CT evidence of acute cholecystitis. If there is clinical concern for acute cholecystitis, ultrasound evaluation would be suggested. No evidence of acute appendicitis or obstructive uropathy. Similar simple appearing partially exophytic 5 cm cyst inferior lateral right kidney. Worsened moderate/severe superior endplate fracture compression deformity of T12 compared to 11/29/2024. There is worsened posterior cortical retropulsion of T12, with at least moderate central spinal canal narrowing. Small fat containing right inguinal hernia. [facility] Triage Chief Complaint: Abd Pain ED Provider: Froilan Guerra Dx/Rx/DC Orders Clinical Impression: Adult failure to thrive, Parkinson's disease, Compression fracture of T12 vertebra, Current use of long term care social worker anticoagulation Prescriptions: No Action warfarin 6 mg tablet 7 mg PO DAILY Patient Comments: Take 1 tablet by mouth daily WITH 3MG TAB TO EQUAL 9MG entacapone [Comtan] 200 mg Tablet 200 mg PO Q4H Rx Instructions: take 4x/day with levodopa/carbidopa carbidopa-levodopa 25-100 mg tablet 2 tab PO Q4H Patient Comments: take 2 tablets by mouth six times a day AT 4:30-5AM, 9AM, 1PM, 5-6PM, AND MIDNIGHT tamsulosin 0.4 mg capsule 0.4 mg PO DAILY PRN (Reason: urinary retention) acetaminophen 500 mg Tablet 1,000 mg PO Q8 Qty: 0 0RF lidocaine 4 % adhesive patch,medicated 1 patch topical DAILY PRN (Reason: pain) Qty: 30 0RF Rx Instructions: over the counter, no prescription required. ergocalciferol (vitamin D2) [Vitamin D2] 1,250 mcg (50,000 unit) capsule 1,250 mcg PO QWEEK Qty: 8 0RF Primary Care Provider: Joss Heredia Referrals: Joss Heredia MD [Primary Care Provider] - Print Language: Estonian
[2024-12-09 07:00] LABS: AST(SGOT) 19 U/L (<=37); Alanine Aminotransfer ALT/SGPT < 5 U/L (<=46); Albumin, Serum 3.5 g/dL (3.4-4.8); Alkaline Phosphatase 76 U/L (40-129); Anion Gap 9 (5-15); BUN 15 mg/dL (4-19); BUN/Creat Ratio 17.4 RATIO (10-20); Bilirubin, Direct 0.26 mg/dL (0.00-0.30); Calcium,Total 8.8 mg/dL (7.6-11.0); Carbon Dioxide 25.5 mmol/L (21.0-32.0); Chloride 106 mmol/L (98-108); Creatinine, Serum 0.83 mg/dL (0.70-1.20); EST Glomerular Filtration Rate 92 (>60); Estimated Creatinine Clearance 87.91 ml/min (50-250); Glucose 97 mg/dL (70-99); Potassium 4.2 mmol/L (3.3-5.1); Protein, Total 6.5 g/dL (5.9-8.4); Sodium Level 140 mmol/L (133-145); Total Bilirubin 0.63 mg/dL (0.00-1.30)
[2024-12-09 07:22] LABS: International Normalized Ratio 2.7; Prothrombin Time (Protime)PT. 29.5 SECONDS (11.7-14.9)
[2024-12-09 07:54] LABS: Bacteria 0 SEEN /hpf (None Seen); Mucous, Urine 0 SEEN /hpf (<or=2+); Squamous Epithelial Cells - UA 0 SEEN /hpf (0-5); White Blood Cells 0 SEEN /hpf (0-5)
--- NOTE | 2024-12-09 07:55 | ED.RN ---
UPDATED FAMILY THAT WE WOULD BE WAITING ON SOCIAL WORK TO HELP WITH DIRECT PLACMEENT TO SKILLED FACILITY. FAMILY REPORTED THEY WANTED TO EXPLORE IT OPTION BUT NOT SET ON THAT. LET THEM KNOW THAT SW WOULD BE IN AT 1000. PT AND DAUGHTER WANT TO DISCUSS THE [facility] MORE BEFORE AGREEING TO IT. STAFF EXPRESSED OUR CONCERNS THAT THOUGH THEY HAVE HELP COMING IN AND OUT. IT TOOK 3 STAFF TO STAND AND PIVOT HIM HERE IN ED. AND HE DOESNT CURRENTLY HAVE ACCESS TO 24/7 ASSISTANCE FOR TOILETING ETC. GIVEN SOME TIME TO DISCUSS AND DR MYERS TO REVISIT [facility] WITH THEM.
[2024-12-09 08:01] LABS: Color, Urine Yellow (Yellow); Glucose, Dipstick Normal (Normal); Ketone-Dipstick Negative (Negative); Leukocyte Esterase-Dipstick Negative /ul (Negative); Nitrite-Dipstick Negative (Negative); Occult Blood-Urine 10 /ul (Negative); Protein-Dipstick Negative (Negative); Specific Gravity, Urine 1.005 (1.002-1.030); Urine Bilirubin Dipstick Negative (Negative); Urine Clarity Clear (Clear); Urine Urobilinogen Normal (Normal)
--- NOTE | 2024-12-09 08:01 | US_ITS ---
PROCEDURE: ABDOMEN LIMITED (USABDL), 12/09/2024 8:28 a.m. REASON FOR EXAM: CHOLELITHIASIS COMPARISON: CT of same date 6:57 a.m. FINDINGS: Liver: Unremarkable. 16.2 cm in length. Gallbladder: Cholelithiasis. No visualized wall thickening or pericholecystic fluid. Reportedly, sonographic Ring's was negative. Biliary tree: Photocopying Equipment Repairer reports dilatation of the intrahepatic biliary tree, favored technical on correlation with recent CT. CBD measures 5 mm. Pancreas: Largely obscured by shadowing bowel gas. Right kidney: 3.7 x 3.9 x 3.5 cm cyst.. 11.0 cm in length. Other: No visualized free fluid. US/Abdomen Limited IMPRESSION: 1. Cholelithiasis without findings to suggest cholecystitis. No significant bi liary dilatation. 2. Additional description as above. Reading Location: [id number]
[2024-12-09 08:05] VITALS: BP 150/81; PULSE 62; RESP 14; O2SAT 98
[2024-12-09 09:12] LABS: Red Blood Cells-Urine 0 SEEN /hpf (0-5)
--- NOTE | 2024-12-09 10:30 | CM.ED ---
Social Work Reason for consult: Discharge planning, possible SNF placement Brief chart review and noted patient had an inpatient stay at [facility] from 11.29.24 - 12.01.24. Discharge plan was [facility] for skilled PT, OT, nursing and social work. Noted in current record patient and family considering possible placement in a SNF, but wanted to speak with social work further. Upon presentation to the patient's room, found the patient and daughter Vannessa in room. Introduced to self and role. Daughter reports has spoken to patient's and all are in agreement to take patient home. Patient voices preference for this disposition as well. This com writer gently broached concern about weakness the patient has been experiencing, as well as need for multiple person assist today. Patient reports to feel if he were at home, he would be getting around okay with the medical equipment available to him. Daughter also reports patient is actually doing much better than when patient discharged on 12.01.24. 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 Daughter Vannessa also lives less than a mile away, so is also on standby to help should the need arise. HHC is coming out, a nurse has been out to assess with Home PT set to start 3 times a week next week. The family has also hired a HHC from 0900 - 1300 Friday through , starting on Friday. Between family support, and home health arrangements, as well as patient's desire to be at home, the family feels comfortable taking patient home. Patient also reports to feel comfortable with this. 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 Much supportive listening offered, while also maintaining focus on safety. Updated ED provider about declination for any type of placement, and wishes to return home with family support and HHC as arrangement previously. Plan: Home, family to assist, continue with [facility], and then hired TECHNICAL TRAINING INSTRUCTOR stating next week. No other services requested or indicated. -TERRI Kong
[2024-12-09 10:41] VITALS: BP 132/74; PULSE 78; RESP 16; O2SAT 97
== END 2024-12-09 10:42 | disposition home or self-care (01) ==
PROVIDERS: Emergency Provider Emergency Medicine; PCP Family Medicine; Visit Provider Emergency Medicine
DX: R10.9 Unspecified abdominal pain (principal); G20.A1 Parkinson's disease without dyskinesia, without mention of fluctuations; K59.00 Constipation, unspecified; R62.7 Adult failure to thrive; Z86.718 Personal history of other venous thrombosis and embolism; Z96.643 Presence of artificial hip joint, bilateral; Z96.659 Presence of unspecified artificial knee joint; Z86.73 Personal history of transient ischemic attack (TIA), and cerebral infarction without residual deficits; N40.1 Benign prostatic hyperplasia with lower urinary tract symptoms; N13.8 Other obstructive and reflux uropathy; Z79.899 Other long term (current) drug therapy; Z79.01 Long term (current) use of anticoagulants; Z87.898 Personal history of other specified conditions
CPT/HCPCS: 74177; 76705; 80048; 80076; 81001; 83690; 83735; 85025; 85610; 99283; Q9967; A4216

== ENCOUNTER → 2025-01-12 | Outpatient (CLI) | payer MEDICARE, OTHER, SELFPAY ==
[2025-01-12 17:10] LABS: Bacteria 0 SEEN /hpf (None Seen); Mucous, Urine 0 SEEN /hpf (<or=2+); Red Blood Cells-Urine 0 SEEN /hpf (0-5); Squamous Epithelial Cells - UA 0 SEEN /hpf (0-5)
[2025-01-13 15:54] LABS: Color, Urine Amber (Yellow); Glucose, Dipstick Normal (Normal); Ketone-Dipstick 15 mg/dl (Negative); Leukocyte Esterase-Dipstick 500 /ul (Negative); Nitrite-Dipstick Negative (Negative); Occult Blood-Urine 250 /ul (Negative); Protein-Dipstick 100 mg/dl (Negative); Urine Bilirubin Dipstick Negative (Negative); Urine Clarity Cloudy (Clear); Urine Urobilinogen Normal (Normal)
[2025-01-13 16:15] LABS: White Blood Cells >100 SEEN /hpf (0-5)
== END | disposition home or self-care (01) ==
LOC: LABSPEC 08-03 11:50
PROVIDERS: PCP Family Medicine; Referring Provider Family Medicine; Visit Provider Family Medicine
DX: N39.0 Urinary tract infection, site not specified (principal)
CPT/HCPCS: 81001; 87077; 87086; 87088; 87186

== ENCOUNTER → 2025-02-02 | Outpatient (CLI) | payer MEDICARE, OTHER, SELFPAY ==
--- NOTE | 2025-02-02 06:46 | MRI_ITS ---
PROCEDURE: MRI SPINE LUMBAR (ROUTINE) 02/02/2025 REASON FOR EXAM: COMPRESSION FX T7 AND T12 Back pain TECHNIQUE: MRI lumbar spine without contrast. Multiplanar and multisequence images were obtained without IV contrast administration. COMPARISON: CT lumbar spine 11/29/2024 FINDINGS: Marrow: Mild chronic compression fracture at L5 without marrow edema. No evidence of acute lumbar fracture. Acute progression of chronic T12 compression fracture, please see MRI thoracic spine dictation 02/02/2025 Alignment: No significant lumbar spondylolisthesis Conus Medullaris: There is retropulsion of the posterior wall of T12 resulting in moderate spinal canal stenosis with mass effect on the ventral distal spinal cord, please see MRI thoracic spine dictation 02/02/2025. Visualized distal spinal cord demonstrates normal signal characteristics. L1-2: L1-2 intervertebral disc demonstrates normal morphology with no significant spinal canal or neural foraminal stenosis L2-3: L2-3 mild diffuse disc bulge. Minimal spinal canal stenosis without mass effect on the nerve roots. Minimal bowel neural foraminal stenosis without mass effect on the nerve roots L3-4: L3-4 mild diffuse disc bulge. Mild spinal canal stenosis without mass effect on the nerve roots. Mild bilateral neural foraminal stenosis without mass effect on the nerve roots L4-5: L4-5 diffuse disc bulge, asymmetric to the left. Mild to moderate spinal canal stenosis without mass effect on the nerve roots. Mild bilateral neural foraminal stenosis without mass effect on the nerve roots L5-S1: L5-S1 disc height loss, mild diffuse disc bulge and bilateral posterior lateral extending osteophytes and mild bilateral facet degenerative change. Mild spinal canal stenosis without mass effect on the nerve roots moderate bilateral neural foraminal stenosis. Disc bulge and osteophytes contact the bilateral L5 nerve roots without compression of the nerve roots Sacrum: Partially visualized upper sacrum appears intact Incidental notation made of partially visualized right renal cyst. MRI/Spine Lumbar (Routine) IMPRESSION: 1. Acute progression of chronic T12 compression fracture with retropulsion of the posterior wall and mass-effect on the distal spinal cord. Please see MRI thoracic spine dictation February 02, 2025. 2. Minimal chronic L5 compression fracture. No evidence of acute lumbar fract ure. 3. Multilevel degenerative changes with varying degrees of spinal canal and ne ural foraminal stenosis, as detailed above. Reading [facility]
--- NOTE | 2025-02-02 06:47 | MRI_ITS ---
PROCEDURE: MRI SPINE THORACIC (ROUTINE) 02/02/2025 REASON FOR EXAM: COMPRESSION FX T7 AND T12 Back pain. Thoracic spine pain. Fall. TECHNIQUE: Thoracic spineMRI without contrast Multiplanar and multisequence images were obtained. COMPARISON: CT thoracic spine 11/29/2024 FINDINGS: Chronic moderate T7 compression fracture without marrow edema. Acute progression of chronic T12 compression fracture with further vertebral body height loss compared to 11/29/2024.. Additionally there is marrow edema within the T12 vertebral body. There is new retropulsion of the posterior wall of T12 resulting in moderate spinal canal stenosis with mild mass effect on the ventral aspect of the distal spinal cord. Thoracic spinal cord demonstrates normal signal characteristics without evidence of thoracic spinal cord edema, hemorrhage or myelomalacia. Thoracic intervertebral discs demonstrate normal morphology. No suspicious osseous lesions. MRI/Spine Thoracic (Routine) IMPRESSION: 1. Acute progression of T12 compression fracture with marrow edema and new ret ropulsion of the posterior wall of T12 resulting in moderate osseous spinal canal stenosis with mass effect on the ventral thora cic spinal cord. 2. Moderate chronic T7 compression fracture. 3. Normal signal characteristics of thoracic spinal cord Reading Location[facility]
== END | disposition home or self-care (01) ==
LOC: OPMRI 07:07
PROVIDERS: PCP Family Medicine; Referring Provider Anesthesiology; Visit Provider Anesthesiology
DX: M48.54XA Collapsed vertebra, not elsewhere classified, thoracic region, initial encounter for fracture (principal)
CPT/HCPCS: 72146; 72148